=== PATIENT | female | born 1935 | race Caucasian/White ===

== ENCOUNTER 2016-03-02 23:30 | Emergency (ER) | payer OTHER, MEDICARE ==
[~2016-03-02] VITALS: Ht 157.5 cm; Wt 77.0 kg
[~2016-03-02 23:30] MED LIST: AMLO-114 PO; BROM0.07 OPR; CALCTAB7 PO; CHOL20005 PO; HYDR50TA3 PO; LEVO125T5 PO; LOSA100T65 PO; METO100T14 PO; MULT-506 PO; PANT1TAB3 PO; PRAV20TA PO; PRED1SUS3 OPR
[2016-03-02 23:51] VITALS: TEMP 36.7; Ht 157.5 cm; Wt 77.0 kg
[2016-03-03] MEDS ORDERED: LEVO112T4 PO (00:37)
[2016-03-03] MEDS ORDERED: FAMO20TA11 PO (00:38)
[2016-03-03 00:55] LABS: BASO % 0.2 %; BASO ABS # 0.02 K/uL (0-0.2); COMPLETE YES; EOS % 1.3 %; HEMATOCRIT 39.5 % (37-47); IG% 0.4 %; LYMPH % 19.1 %; LYMPH ABS # 1.61 K/uL (1.2-3.4); MEAN CORPUSCULAR HEMOGLOBIN 30.2 pg (25-34); MEAN CORPUSCULAR HGB CONC 34.7 g/dl (32-36); MEAN PLATELET VOLUME 10.3 fL (7.4-10.4); MONO % 9.1 %; NEUT % 69.9 %; PLATELET COUNT 199 K/uL (130-400); RED BLOOD COUNT 4.54 M/uL (4.2-5.4); WHITE BLOOD COUNT 8.45 K/uL (4.8-10.8)
[2016-03-03 01:00] LABS: URINE APPEARANCE CLEAR (CLEAR); URINE BILIRUBIN NEG (NEG); URINE COLOR YELLOW; URINE NITRITE NEG (NEG); URINE PH 6.5 (4.5-7.5); URINE SPECIFIC GRAVITY 1.007 (1.000-1.030); UROBILINOGEN NEG (NEG); ZZUR CULT IF INDIC CLEAN CATCH NO
[2016-03-03 01:03] LABS: MANUAL MICROSCOPIC REQUIRED? NO; REVIEW REQ? NO
[2016-03-03 01:35] LABS: BLOOD UREA NITROGEN 17 mg/dl (7-18); BUN/CREATININE RATIO 18.4 (10-20); CALCIUM 8.2 mg/dl (8.5-10.1); CARBON DIOXIDE 26 mmol/L (21-32); CHLORIDE 104 mmol/L (98-107); CREATININE 0.91 mg/dl (0.60-1.20); GLUCOSE 142 mg/dl (70-99); SODIUM 144 mmol/L (136-145)
--- NOTE | 2016-03-03 02:01 | EMERGENCY ROOM VISIT NOTE ---
History Report prepared by Ashwini: Abelino Dodge Under the Supervision of: Dr. Lon Smith M.D. First contact with patient: 23:58 Chief Complaint: NEURO SYMPTOMS Stated Complaint: NUMBNESS, TINGLING LT SIDE History of Present Illness The patient is a 80 year old female who presents to the Emergency Room with complaints of worsening generalized numbness for the past three days. The patient describes the numbness as a pins and needles sensation. The numbness is felt in her face and extremities, and is not localized to one side of her body. The patient denies any weakness, fevers, vision changes, syncope, nausea, vomiting, burning with urination or urinary frequency, or swelling of the extremities. She has intermittent chest tightness, which she says is normal for her. She has also had sinus congestion lately. She experienced chronic abdominal pain and diarrhea secondary to diverticulosis, which have been at baseline. The patient has not had any recent weight changes. The patient denies any recent falls or trauma. She had not had any tick bites. She had not been on any recent long trips. The patient takes medicine for her thyroid. Her thyroid levels have not been checked since December 28. She is on medication for hypertension and hyperlipidemia. She does not have diabetes. The patient does not smoke. She is scheduled to have a stress test next week. Source of History: patient Onset: three days Position: other (generalized) Quality: numbness Timing: worsening Associated Symptoms: + chest pain, No abdominal pain, No diarrhea, No fevers , No nausea, No urinary symptoms, No vomiting, No weakness Review of Systems See HPI for pertinent positives & negatives. A total of 10 systems reviewed and were otherwise negative. Past Medical & Surgical Medical Problems: (1) HTN (hypertension) Surgical Problems: (1) S/P cholecystectomy (2) S/P tonsillectomy and adenoidectomy Family History Diabetes mellitus FH: cancer FH: gallbladder disease Kidney disease Kidney stones Social History Smoking Status: Never Smoker Alcohol Use: none Drug Use: none Housing Status: lives alone Occupation Status: retired Current/Historical Medications Scheduled Amlodipine (Norvasc), 10 MG PO QPM Famotidine (Pepcid), 20 MG PO DAILY Hydrochlorothiazide (Hctz), 50 MG PO QAM Levothyroxine Sodium (Levothyroxine Sodium), 112 MCG PO DAILY Losartan Potassium (Cozaar), 100 MG PO QAM Metoprolol Tartrate (Lopressor) (Lopressor), 100 MG PO BID Pravastatin (Pravachol ), 20 MG PO HS Allergies Coded Allergies: Codeine (Verified Allergy, Intermediate, GI SYMPTOMS Nausea Emesis, 03/03/16) Fentanyl (Unverified Allergy, Unknown, vomiting, 03/03/16) Physical Exam Vital Signs Date Time Temp Pulse Resp B/P Pulse Ox O2 Delivery O2 Flow Rate FiO2 03/03/16 02:12 62 18 148/64 97 03/03/16 01:56 68 18 141/75 95 Room Air 03/03/16 00:40 67 03/02/16 23:51 36.7 69 18 140/68 94 Room Air Physical Exam GENERAL: Patient is well appearing and in no acute distress. HEENT: No acute trauma, normocephalic atraumatic, mucous membranes moist, no nasal congestion, no scleral icterus. NECK: No stridor, no adenopathy, no meningismus, trachea is midline. LUNGS: No dyspnea. Clear to auscultation and equal bilaterally. No wheeze, no rhonchi. HEART: Regular rate and rhythm. No murmurs, rubs, gallops appreciated. ABDOMEN: Soft, nontender, bowel sounds positive, no masses appreciated, no peritonitis. BACK: No midline tenderness, no CVA tenderness EXTREMITIES: Normal motion all extremities, no cyanosis, no edema. NEUROLOGIC: Alert and oriented, no acute motor or sensory deficits, no focal weakness, cranial nerves grossly intact. SKIN: No rash, no jaundice, no diaphoresis.v Medical Decision & Procedures ER Provider Diagnostic Interpretation: X ray results are stated below per my interpretation: Chest: 1 view: No infiltrate, no effusion, normal cardiac border. CT results and stated below per my review and radiologist interpretation: CT Head: No intracranial hemorrhage or mass effect. Radiologist: Delbert Sin MD. Laboratory Results 03/03/16 00:42 Red Blood Count 4.54, Mean Corpuscular Volume 87.0, Mean Corpuscular Hemoglobin 30.2, Mean Corpuscular Hemoglobin Concent 34.7, Mean Platelet Volume 10.3, Neutrophils (%) (Auto) 69.9, Lymphocytes (%) (Auto) 19.1, Monocytes (%) (Auto) 9.1, Eosinophils (%) (Auto) 1.3, Basophils (%) (Auto) 0.2, Neutrophils # (Auto) 5.91, Lymphocytes # (Auto) 1.61, Monocytes # (Auto) 0.77, Eosinophils # (Auto) 0.11, Basophils # (Auto) 0.02 03/03/16 00:42 Test 03/03/16 00:42 03/03/16 00:45 White Blood Count 8.45 K/uL (4.8-10.8) Red Blood Count 4.54 M/uL (4.2-5.4) Hemoglobin 13.7 g/dL (12.0-16.0) Hematocrit 39.5 % (37-47) Mean Corpuscular Volume 87.0 fL (80-100) Mean Corpuscular Hemoglobin 30.2 pg (25-34) Mean Corpuscular Hemoglobin Concent 34.7 g/dl (32-36) Platelet Count 199 K/uL (130-400) Mean Platelet Volume 10.3 fL (7.4-10.4) Neutrophils (%) (Auto) 69.9 % Lymphocytes (%) (Auto) 19.1 % Monocytes (%) (Auto) 9.1 % Eosinophils (%) (Auto) 1.3 % Basophils (%) (Auto) 0.2 % Neutrophils # (Auto) 5.91 K/uL (1.4-6.5) Lymphocytes # (Auto) 1.61 K/uL (1.2-3.4) Monocytes # (Auto) 0.77 K/uL (0.11-0.59) Eosinophils # (Auto) 0.11 K/uL (0-0.5) Basophils # (Auto) 0.02 K/uL (0-0.2) RDW Standard Deviation 43.6 fL (36.4-46.3) RDW Coefficient of Variation 13.7 % (11.5-14.5) Immature Granulocyte % (Auto) 0.4 % Immature Granulocyte # (Auto) 0.03 K/uL (0.00-0.02) Anion Gap 14.0 mmol/L (3-11) Est Creatinine Clear Calc Drug Dose 48.2 ml/min Estimated GFR () 69.5 Estimated GFR (Non- 60.0 BUN/Creatinine Ratio 18.4 (10-20) Calcium Level 8.2 mg/dl (8.5-10.1) Magnesium Level 2.0 mg/dl (1.8-2.4) Troponin I < 0.015 ng/ml (0-0.045) Thyroid Stimulating Hormone (TSH) 1.270 uIu/ml (0.300-4.500) Free Thyroxine 1.25 ng/dl (0.80-1.60) Chemistry Specimen Hemolysis Urine Color YELLOW Urine Appearance CLEAR (CLEAR) Urine pH 6.5 (4.5-7.5) Urine Specific Tyler 1.007 (1.000-1.030) Urine Protein NEG (NEG) Urine Glucose (UA) NEG (NEG) Urine Ketones NEG (NEG) Urine Occult Blood NEG (NEG) Urine Nitrite NEG (NEG) Urine Bilirubin NEG (NEG) Urine Urobilinogen NEG (NEG) Urine Leukocyte Esterase NEG (NEG) Urine WBC (Auto) 0 /hpf (0-5) Urine RBC (Auto) 0-4 /hpf (0-4) Urine Hyaline Casts (Auto) 0 /lpf (0-5) Urine Epithelial Cells (Auto) 5-10 /lpf (0-5) Urine Bacteria (Auto) NEG (NEG) Laboratory results as reviewed by me. ECG Indication: other (numbness) Rate (beats per minute): 62 Rhythm: normal sinus Findings: RBBB, no acute ischemic change, no ectopy ED Course 0000: The patient was evaluated in room C7. A complete history and physical exam was performed. 0200: Reevaluated the patient. Discussed results and discharge instructions: She verbalized understanding and agreement. The patient is ready for discharge. Medical Decision Differential: Sepsis, Infectious (UTI/Pneumonia/Meningitis/etc), Metabolic/ Electrolyte Abnormality, Cardiac, Hepatic, Endocrine, Toxicologic, Neurologic, amongst other pathologies entertained. 80 yr old female arrives with complaint of several days of periodic tingling in fingers/toes and around mouth. Admits it's been a stressful last week with holidays and family per patient and her grand-daughter. Given not previously an issue though went ahead and CT head normal, labs unremarkable and EKG with rbbb without ischemia. Already has stress test planned. No distress and happy. States no further symptoms. Without neuro deficits and with such specific symptoms I feel MRI unnecessary. No evidence infectious etiology. Impression Primary Impression: Paresthesia Scribe Attestation The scribe's documentation has been prepared under my direction and personally reviewed by me in its entirety. I confirm that the note above accurately reflects all work, treatment, procedures, and medical decision making performed by me. Departure Information Dispostion Home / Self-Care Referrals Nahid Nicholas M.D. (PCP) Forms HOME CARE DOCUMENTATION FORM, IMPORTANT VISIT INFORMATION Patient Instructions A Signature Page, Anxiety Body Response, My [facility]
[2016-03-03 02:12] VITALS: BP 148/64; PULSE 62; O2SAT 97
--- NOTE | 2016-03-03 06:29 | DIAGNOSTIC IMAGING REPORT ---
CT HEAD WITHOUT CONTRAST (CT) CLINICAL HISTORY: Generalized Weakness COMPARISON STUDY: 02/25/2013 TECHNIQUE: Axial CT of the brain is performed from the vertex to the skull base. IV contrast was not administered for this examination. CT DOSE: 537.48 mGy.cm FINDINGS: No intra or extra-axial mass lesions are visualized. There is no CT evidence of acute cortical infarction. There is no evidence of midline shift. There is no acute hemorrhage. No calvarial fractures are visualized. There are patchy white matter hypodensities likely on a small vessel basis. There is no evidence of pathologic ventricular dilatation. There is no evidence of acute sinusitis IMPRESSION: No acute intracranial findings Electronically signed by: Bryn Hardy M.D. 03/03/2016 6:28 AM
--- NOTE | 2016-03-03 06:39 | DIAGNOSTIC IMAGING REPORT ---
CHEST ONE VIEW PORTABLE CLINICAL HISTORY: Weakness. Chest pain. Shortness of breath. COMPARISON STUDY: Chest radiograph September 26, 2014 to FINDINGS: Elevation of the right hemidiaphragm is unchanged. There is no pneumothorax or pleural effusion. Mild left basilar opacity suggests atelectasis or scarring. There is no consolidation. Cardiac size is normal. Mediastinal contours are normal. The appearance of the chest is unchanged. IMPRESSION: No acute cardiopulmonary findings. Electronically signed by: Alan Bravo M.D. 03/03/2016 6:37 AM
== END 2016-03-03 02:13 | disposition home or self-care (01) ==
LOC: C.EDB 23:31 → C.EDC 03-03 02:13
DX: R20.2 Paresthesia of skin (principal); I10 Essential (primary) hypertension; E78.5 Hyperlipidemia, unspecified; Z83.3 Family history of diabetes mellitus; Z80.9 Family history of malignant neoplasm, unspecified; Z83.79 Family history of other diseases of the digestive system; Z84.1 Family history of disorders of kidney and ureter; Z79.899 Other long term (current) drug therapy

== ENCOUNTER 2019-05-26 15:09 | Inpatient (IN) ==
[2019-05-26] MEDS ORDERED: FAMOTIDINE 40 MG TABLET PO ONE (15:18)
[2019-05-26] MEDS ORDERED: GI COCKTAIL ED USE PO ONE (15:18)
[2019-05-26] MEDS ORDERED: SUCRALFATE 1 GM TAB PO STA (15:18)
--- NOTE | 2019-05-26 15:23 | Emergency Department Note ---
History of Present Illness General Chief complaint: Chest Pain Time Seen by Provider: 05/26/19 15:13 Source: patient, EMS, RN notes reviewed and old records reviewed Mode of arrival: EMS Limitations: no limitations History of Present Illness Provider complaint: chest pain Onset (ago): week(s) 3 Location: chest Radiation: non-radiation Severity: mild Current Pain Intensity: 3 Quality: + aching Relieved By: + medication (albuterol) Exacerbated By: + none Associated symptoms: + denies other symptoms Treatments prior to arrival: other (albuterol) This is an 83-year-old female who presents to the emergency department complaining of chest pain. The patient reports she has had chest pain for the past several weeks and was evaluated at [facility] for the chest pain. She had a stress test while admitted to [place] which she passed. Upon EMSs arrival to the patient's house today she was found to be satting 90%. She was given an albuterol breathing treatment on the way in which relieved the patient's chest pain. Patient was told it was her hiatal hernia. She was placed on pantoprazole for this. She is here today for second opinion. Home Medications Home Medications Medication Instructions Recorded Confirmed Type Allergy Pill 1 tab PO DAILY 05/26/19 05/26/19 History amlodipine [Norvasc] 5 mg PO DAILY 05/26/19 05/26/19 History ascorbic acid-vitamin E-biotin 1 tab PO DAILY 05/26/19 05/26/19 History [Hair, Skin, Nails with Biotin] calcitriol [Rocaltrol] 0.25 mcg PO Q OTHER DAY 05/26/19 05/26/19 History cholecalciferol (vitamin D3) 50 mcg PO DAILY 05/26/19 05/26/19 History [Vitamin D3] famotidine [Pepcid] 40 mg PO BID 05/26/19 05/26/19 History levothyroxine 100 mcg PO DAILY 05/26/19 05/26/19 History losartan [Cozaar] 100 mg PO DAILY 05/26/19 05/26/19 History metoprolol tartrate [Lopressor] 100 mg PO DAILY 05/26/19 05/26/19 History pantoprazole [Protonix] 40 mg PO DAILY 05/26/19 05/26/19 History Allergies Allergy/AdvReac Type Severity Reaction Status Date / Time codeine Allergy Intermediate GI Verified 05/26/19 15:47 SYMPTOMS Nausea Emesis fentanyl Allergy Unknown vomiting Unverified 05/26/19 15:47 Past Med/Surg History Medical History (Updated 05/27/19 @ 11:48 by Marino Cespedes MD) Colostomy present Diverticulitis of colon with perforation Surgical History (Updated 05/26/19 @ 17:29 by Rosario Amezcua MD) History of cataract surgery Hx of cholecystectomy Social History Preferred Language: Yi Communication Ability: Effective Loop Puller Required: No Beliefs That Will Affect Care: None Current Living Situation: Alone Feels Safe at Home: Yes Safety Concerns: Feels Safe At This Time Smoking Status: Never smoker Hx Alcohol Use: No Hx Substance Use: No Review of Systems A total of 10 systems reviewed and were otherwise negative Physical Exam Vital Signs Vital Signs - 24 hr 05/26/19 15:17 05/26/19 15:23 05/26/19 15:30 Temperature Temperature Source Pulse Rate 79 80 Pulse Rate from SpO2 Sensor 79 79 Respiratory Rate 18 21 Respiratory Effort / Characteristics Respiratory Depth Blood Pressure 158/69 H Blood Pressure Mean 94 Pulse Oximetry 96 95 95 Oxygen Delivery Method Room Air Sepsis Recent Fever Within 48 Hours Sepsis New/Unexplained Change in Mental Status Sepsis Action Taken by Nursing 05/26/19 15:31 05/26/19 15:34 05/26/19 16:36 Temperature 36.9 C Temperature Source Oral Pulse Rate 79 81 73 Pulse Rate from SpO2 Sensor 79 73 Respiratory Rate 20 18 22 Respiratory Effort / Characteristics Non-Labored Respiratory Depth Normal Blood Pressure 101/80 101/80 157/81 H Blood Pressure Mean 83 87 118 Pulse Oximetry 94 96 95 Oxygen Delivery Method Room Air Sepsis Recent Fever Within 48 Hours No Sepsis New/Unexplained Change in Mental Status No Sepsis Action Taken by Nursing No Action Required 05/26/19 17:00 05/26/19 17:38 05/26/19 17:40 Temperature Temperature Source Pulse Rate 75 70 70 Pulse Rate from SpO2 Sensor 70 70 Respiratory Rate 23 21 21 Respiratory Effort / Characteristics Respiratory Depth Blood Pressure 133/56 L Blood Pressure Mean 79 Pulse Oximetry 96 95 Oxygen Delivery Method Sepsis Recent Fever Within 48 Hours Sepsis New/Unexplained Change in Mental Status Sepsis Action Taken by Nursing 05/26/19 17:41 05/26/19 18:00 05/26/19 18:01 Temperature Temperature Source Pulse Rate 70 71 73 Pulse Rate from SpO2 Sensor 70 72 72 Respiratory Rate 21 21 18 Respiratory Effort / Characteristics Respiratory Depth Blood Pressure 129/59 L Blood Pressure Mean 69 Pulse Oximetry 94 95 95 Oxygen Delivery Method Sepsis Recent Fever Within 48 Hours Sepsis New/Unexplained Change in Mental Status Sepsis Action Taken by Nursing 05/26/19 18:31 05/26/19 18:38 Temperature Temperature Source Pulse Rate 70 Pulse Rate from SpO2 Sensor Respiratory Rate 16 Respiratory Effort / Characteristics Respiratory Depth Blood Pressure 126/40 L Blood Pressure Mean 69 Pulse Oximetry Oxygen Delivery Method Sepsis Recent Fever Within 48 Hours Sepsis New/Unexplained Change in Mental Status Sepsis Action Taken by Nursing GENERAL: Patient is a healthy-appearing well-nourished female in no acute distress HEAD: Normocephalic atraumatic EYES: Ocular movements intact pupils equal and react to light OROPHARYNX mucous membranes are moist no exudates present no erythema or edema present NECK: Supple no nuchal rigidity CHEST: Good equal expansion LUNGS: Clear and equal to auscultation CARDIAC: Normal S1 and S2 ABDOMEN: Soft nontender no guarding BACK: No CVA tenderness EXTREMITIES: No pain upon palpation normal muscle strength in all groups no clubbing cyanosis or edema NEURO: Patient is following commands is answering questions appropriately. Alert and oriented x3 Cranial Nerves 2-12 grossly intact Course Administered Medications Potassium Chloride/Dextrose/Sod Cl (D5nss + 20meq Kcl) 20 meq in 1,000 mls @ 75 mls/hr IV .[id number] [facility] Stop: 06/25/19 19:46 Last Admin: 05/27/19 10:01 Dose: 75 mls/hr Documented by: [id number] Infusion: 05/27/19 09:47 Dose: 75 mls/hr Documented by: [id number] Infusion: 05/26/19 22:06 Dose: 75 mls/hr Documented by: [id number] Admin: 05/26/19 20:27 Dose: 75 mls/hr Documented by: [id number] Pantoprazole Sodium 40 mg/ (Syringe) 10 mls @ 5 mls/min IV DAILY@1100 [facility] Stop: 06/26/19 10:59 Last Admin: 05/27/19 11:15 Dose: 5 mls/min Documented by: [id number] Piperacillin Sod/Tazobactam (Sod 3.375 gm/ Dextrose) 115 mls @ 28.75 mls/hr IV Q8H [facility]; Protocol Stop: 06/05/19 21:59 Last Infusion: 05/27/19 10:33 Dose: 0 mls/hr Documented by: [id number] Admin: 05/27/19 06:29 Dose: 28.8 mls/hr Documented by: [id number] Infusion: 05/27/19 01:39 Dose: 0 mls/hr Documented by: [id number] Admin: 05/26/19 21:46 Dose: 28.8 mls/hr Documented by: [id number] Famotidine 20 mg/ Syringe 5 mls @ 2.5 mls/min IV BID [facility] Stop: 06/26/19 08:59 Last Admin: 05/27/19 08:11 Dose: 2.5 mls/min Documented by: [id number] Levothyroxine Sodium 50 mcg/ (Syringe) 2.5 mls @ 2 mls/min IV DAILY@0900 [facility] Stop: 06/26/19 08:59 Last Admin: 05/27/19 08:30 Dose: 2 mls/min Documented by: [id number] Discontinued Medications Acetaminophen (Tylenol) 1,000 mg PO NOW STA Stop: 05/26/19 15:47 Last Admin: 05/26/19 16:13 Dose: 1,000 mg Documented by: [id number] Al Hydrox/Mg Hydrox/Simethicone () 1 dose PO ONE ONE Stop: 05/26/19 15:19 Last Admin: 05/26/19 15:45 Dose: 1 dose Documented by: [id number] Albuterol (Ventolin Hfa) 6 puffs INH NOW ONE Stop: 05/26/19 15:26 Last Admin: 05/26/19 16:13 Dose: 6 puffs Documented by: [id number] Famotidine (Pepcid) 40 mg PO NOW ONE Stop: 05/26/19 15:19 Last Admin: 05/26/19 15:45 Dose: 40 mg Documented by: [id number] Sodium Chloride (Nss 1000ml) 1,000 mls @ 999 mls/hr IV .Q1H1M ONE Stop: 05/26/19 17:16 Last Infusion: 05/26/19 17:57 Dose: 0 mls/hr Documented by: [id number] Admin: 05/26/19 16:37 Dose: 999 mls/hr Documented by: [id number] Piperacillin Sod/Tazobactam Sod (Zosyn) 4.5 gm in 120 mls @ 240 mls/hr IV NOW ONE Stop: 05/26/19 17:19 Last Infusion: 05/26/19 18:18 Dose: 0 mls/hr Documented by: [id number] Admin: 05/26/19 17:38 Dose: 240 mls/hr Documented by: [id number] Daptomycin 275 mg/ Syringe 5.5 mls @ 2.75 mls/min IV NOW ONE; Protocol Stop: 05/26/19 16:51 Last Admin: 05/26/19 17:54 Dose: 2.75 mls/min Documented by: [id number] Famotidine 20 mg/ Syringe 5 mls @ 2.5 mls/min IV BID [facility] Stop: 06/25/19 20:59 Last Admin: 05/26/19 21:35 Dose: Not Given Documented by: [id number] Ioversol (Optiray 320 125ml) 120 ml IV ONCE PRN PRN Reason: Interaction Checking Stop: 05/30/19 16:00 Last Admin: 05/26/19 16:01 Dose: 120 ml Documented by: [id number] Ioversol (Optiray 320 100ml) 94 ml IV ONCE PRN PRN Reason: Interaction Checking Stop: 05/30/19 16:29 Last Admin: 05/26/19 16:31 Dose: 94 ml Documented by: [id number] Potassium Chloride (Klor-Con M20) 40 meq PO NOW STA Stop: 05/26/19 15:46 Last Admin: 05/26/19 16:13 Dose: 40 meq Documented by: [id number] Sucralfate (Carafate Tab) 1 gm PO NOW STA Stop: 05/26/19 15:19 Last Admin: 05/26/19 15:45 Dose: 1 gm Documented by: [id number] Medical Decision Making Differential Diagnosis Cardiac ischemia, aortic dissection, pulmonary embolism, pneumothorax, pneumonia, pericarditis, myocarditis, esophageal rupture, GERD, cholecystitis, pancreatitis, musculoskeletal, as well as other pathologies. Medical Records Attestation: I reviewed the patient's medical records. Home Medications Current Medication List: was personally reviewed by me Laboratory Data Attestation: I reviewed the patient's lab results. Result diagrams: 05/27/19 03:50 05/27/19 03:50 Lab Results 05/26/19 05/26/19 05/26/19 Range/Units 14:25 14:25 14:25 WBC 10.34 (4.8-10.8) K/uL RBC 4.24 (4.2-5.4) M/uL Hgb 12.5 (12.0-16.0) g/dL POC Hgb (12.0-16.0) g/dl Hct 37.4 (37-47) % POC Hct (37-47) % MCV 88.2 (80-100) fL MCH 29.5 (25-34) pg MCHC 33.4 (32-36) g/dL RDW Std Deviation 43.1 (36.4-46.3) fL RDW Coeff of Grecia 13.4 (11.5-14.5) % Plt Count 300 (130-400) K/uL MPV 10.5 H (7.4-10.4) fL Immature Gran % (Auto) 0.2 % Neut % (Auto) 81.9 % Lymph % (Auto) 8.8 % Bucks % (Auto) 8.2 % Eos % (Auto) 0.6 % Baso % (Auto) 0.3 % Immature Gran # (Auto) 0.02 (0.00-0.02) K/uL Neut # (Auto) 8.47 H (1.4-6.5) K/uL Lymph # (Auto) 0.91 L (1.2-3.4) K/uL Bucks # (Auto) 0.85 H (0.11-0.59) K/uL Eos # (Auto) 0.06 (0-0.5) K/uL Baso # (Auto) 0.03 (0-0.2) K/uL PT 10.8 (9.0-12.0) Seconds INR 1.0 (0.9-1.1) APTT 29.9 (21.0-31.0) Seconds PTT Ratio 1.1 D-Dimer 710 H* (0-500) ug/L FEU POC Sodium (135-144) mmol/L Sodium 137 (136-145) mmol/L POC Potassium (3.3-5.0) mmol/L Potassium 3.6 (3.5-5.1) mmol/L POC Chloride (101-112) mmol/L Chloride 107 (98-107) mmol/L Carbon Dioxide 26 (21-32) mmol/L POC Total CO2 (24-31) mEq/l Anion Gap 4.0 (3-11) POC Anion Gap (16-25) mmol/L POC BUN (7-18) mg/dl BUN 14 (7-18) mg/dl Creatinine 0.79 (0.6-1.2) mg/dl POC Creatinine (0.6-1.3) mg/dl Est Cr Clr Drug Dosing 50.2 ml/min Est GFR ( Amer) 80.8 Est GFR (Non-Af Amer) 69.7 BUN/Creatinine Ratio 17.4 (10-20) Glucose 135 H (70-99) mg/dl POC Glucose (other) (70-99) mg/dl Lactate (0.4-2.0) mmol/L Calcium 8.2 L (8.5-10.1) mg/dl POC Ioniz Calcium Kendell (1.12-1.32) mmol/l Total Bilirubin 0.8 (0.2-1) mg/dl AST 18 (15-37) U/L ALT 26 (12-78) U/L Alkaline Phosphatase 88 (45-117) U/L Total Creatine Kinase 69 (26-192) U/L CK-MB (CK-2) 2.3 (0.5-3.6) ng/ml CK/CKMB % Calc 3.3 H (0-3.0) Troponin I < 0.015 (0-0.045) ng/ml Total Protein 6.9 (6.4-8.2) gm/dl Albumin 2.9 L (3.4-5.0) gm/dl Globulin 4.0 (2.5-4.0) gm/dl Albumin/Globulin Ratio 0.7 L (0.9-2) Lipase 84 (73-393) U/L 05/26/19 05/26/19 05/26/19 Range/Units 15:34 16:08 17:09 WBC (4.8-10.8) K/uL RBC (4.2-5.4) M/uL Hgb (12.0-16.0) g/dL POC Hgb 12.2 (12.0-16.0) g/dl Hct (37-47) % POC Hct 36 L (37-47) % MCV (80-100) fL MCH (25-34) pg MCHC (32-36) g/dL RDW Std Deviation (36.4-46.3) fL RDW Coeff of Grecia (11.5-14.5) % Plt Count (130-400) K/uL MPV (7.4-10.4) fL Immature Gran % (Auto) % Neut % (Auto) % Lymph % (Auto) % Bucks % (Auto) % Eos % (Auto) % Baso % (Auto) % Immature Gran # (Auto) (0.00-0.02) K/uL Neut # (Auto) (1.4-6.5) K/uL Lymph # (Auto) (1.2-3.4) K/uL Bucks # (Auto) (0.11-0.59) K/uL Eos # (Auto) (0-0.5) K/uL Baso # (Auto) (0-0.2) K/uL PT (9.0-12.0) Seconds INR (0.9-1.1) APTT (21.0-31.0) Seconds PTT Ratio D-Dimer (0-500) ug/L FEU POC Sodium 138 (135-144) mmol/L Sodium (136-145) mmol/L POC Potassium 4.2 (3.3-5.0) mmol/L Potassium (3.5-5.1) mmol/L POC Chloride 100 L (101-112) mmol/L Chloride (98-107) mmol/L Carbon Dioxide (21-32) mmol/L POC Total CO2 27 (24-31) mEq/l Anion Gap (3-11) POC Anion Gap 16.0 (16-25) mmol/L POC BUN 15 (7-18) mg/dl BUN (7-18) mg/dl Creatinine (0.6-1.2) mg/dl POC Creatinine 0.6 (0.6-1.3) mg/dl Est Cr Clr Drug Dosing ml/min Est GFR ( Amer) Est GFR (Non-Af Amer) BUN/Creatinine Ratio (10-20) Glucose (70-99) mg/dl POC Glucose (other) 123 H (70-99) mg/dl Lactate 1.0 (0.4-2.0) mmol/L Calcium (8.5-10.1) mg/dl POC Ioniz Calcium Kendell 1.13 (1.12-1.32) mmol/l Total Bilirubin (0.2-1) mg/dl AST (15-37) U/L ALT (12-78) U/L Alkaline Phosphatase (45-117) U/L Total Creatine Kinase (26-192) U/L CK-MB (CK-2) (0.5-3.6) ng/ml CK/CKMB % Calc (0-3.0) Troponin I < 0.015 (0-0.045) ng/ml Total Protein (6.4-8.2) gm/dl Albumin (3.4-5.0) gm/dl Globulin (2.5-4.0) gm/dl Albumin/Globulin Ratio (0.9-2) Lipase (73-393) U/L Imaging Data Radiologist's Impression: XR chest 1V portable CLINICAL HISTORY: 83 years-old Female presenting with Chest Pain. TECHNIQUE: Portable upright AP view of the chest was obtained. COMPARISON: 03/03/2016. FINDINGS: Atherosclerosis of the aortic arch. Cardiac silhouette borderline enlarged. Prominence of the right hilum. Elevation of the right hemidiaphragm, unchanged. Bandlike opacity at the paramediastinal left lung base. No large effusion or pneumothorax. Suspected osteopenia. Degenerative changes of the thoracic spine. Upper abdomen normal. IMPRESSION: 1. Prominence of the right hilum may be vascular or projectional. 2. Chronic elevation of the right hemidiaphragm. 3. Left basilar atelectasis. 4. Borderline cardiomegaly. ACT 112: Negative or not required by law. Electronically signed by: Onur Truong M.D. 05/26/2019 3:36 PM [facility], [place] [phone] CT Scan Report Patient: HECTOR MILIAN Date: 05/26/19 MR#: [id number]: [id number] Acct ID:[id number]: Date: 1935ty Zip: [place] [id number] Age: 83Location: ED Sex: F Room/Bed: Att Phy:Diagnosis: COUGH, SOB Morena Phy: Nahid Nicholas M.D.Service Date: 05/26/19 [facility] Phy:Interpreting Phy: Onur Truong MD Admit Phy: Ordering Phy: Marino Cespedes MD cc: ~ CT angio chest PE protocol CLINICAL HISTORY: 83 years-old Female presenting with atypical chest pain.. TECHNIQUE: Multidetector CT angiography of the chest was performed after administration of intravenous contrast. 3-D volumetric and/or maximum intensity projection (MIP) images were subsequently reconstructed for review. IV contrast: 120 mL of Optiray 320. One or more dose lowering techniques were used consistent with the principles of ALARA (as low as reasonably achievable), including automatic exposure control, mA or kV adjustment to individual patient size, and/or use of iterative reconstruction. COMPARISON: Chest x-ray from earlier today. CT DOSE (mGy.cm): The estimated cumulative dose is 286.34 mGy.cm. FINDINGS: Surveillance Observer topogram: Unremarkable. Pulmonary vasculature: The study is adequate for assessment of the pulmonary vascular tree. No filling defect within the pulmonary arteries to suggest embolus. Main pulmonary artery is not enlarged. No flattening of the interventricular septum. No intracardiac filling defect. No reflux of contrast into the hepatic veins. Remaining chest: Soft tissues: Thyroid atrophic or absent. A few subcentimeter mediastinal lymph nodes are noted in the prevascular and precarinal regions measuring up to 10 mm in short axis, nonspecific. No hilar lymphadenopathy. Atherosclerosis of the aorta. Normal heart size. No pericardial or pleural effusion. Pneumoperitoneum evident. Lungs and airways: No pneumothorax. Central airways patent. Pulmonary arteries are not significantly enlarged relative to adjacent bronchi. No interlobular septal thickening. Minimal dependent changes likely atelectasis. Musculoskeletal: Degenerative changes of the spine. IMPRESSION: 1. Pneumoperitoneum. This is highly concerning for perforated hollow viscus. Please ensure the absence of recent surgery. Dedicated abdominal imaging recommended. 2. No evidence of pulmonary embolus. No acute intrathoracic pathology. 3. Nonspecific prominent mediastinal lymph nodes. The report will be called/faxed according to standard departmental protocol for a critical finding. ACT 112: Negative or not required by law. Electronically signed by: Onur Truong M.D. 05/26/2019 4:14 PM Dictated: 05/26/19 1607 Transcribed: 05/26/19 1607 [place], [place] [phone] CT Scan Report Patient: HECTOR MILIAN Date: 05/26/19 MR#: [id number]: [id number] Acct ID:[id number]: Date: 1935[facility] Zip: [place] [address] Age: 83Location: ED Sex: F Room/Bed: Att Phy:Diagnosis: COUGH, SOB Morena Phy: Nahid Nicholas M.D.Service Date: 05/26/19 Fam Phy:Interpreting Phy: Onur Truong MD Admit Phy: Ordering Phy: Marino Cespedes MD cc: ~ CT abd pelvis IV con only CLINICAL HISTORY: 83 years-old Female presenting with Pt c/o chest pain, pneumoperitoneum on CT chest, further evaluation. TECHNIQUE: Multidetector CT of the abdomen and pelvis was performed after the administration of intravenous contrast. IV contrast: 94 mL of Optiray 320. One or more dose lowering techniques were used consistent with the principles of ALARA (as low as reasonably achievable), including automatic exposure control, mA or kV adjustment to individual patient size, and/or use of iterative reconstruction. COMPARISON: 09/26/2014. CT DOSE (mGy.cm): The estimated cumulative dose is 551.12 mGy.cm. FINDINGS: Surveillance Observer topogram: Unremarkable. Lung bases: Normal heart size. Coronary artery calcification. No pericardial or pleural effusion. Minimal dependent changes likely atelectasis. Liver: Normal morphology. Multilobular hypodense lesion in the right hepatic lobe likely hepatic cyst or hemangioma. Patent hepatic vasculature. Biliary: Mild biliary ductal prominence likely a reservoir effect in the post cholecystectomy state. Gallbladder surgically absent. Pancreas: Normal. Spleen: Normal. Adrenal glands: Normal. Kidneys and ureters: Normal. No hydronephrosis. Bladder: Normal. Pelvic organs: Uterus and ovaries normal. Bowel: Descending colostomy in the left lower quadrant. Status post sigmoidectomy. Contreras's pouch at the upper rectum. A few diverticula at the upper rectum. A few diverticula are also noted in the distal descending colon and scattered throughout the remainder of the colon. No colonic wall thickening or pericolonic inflammatory change. The appendix is normal. No bowel obstruction. Fluid noted throughout the small bowel without evidence of wall thickening or perienteric inflammatory change. Duodenal diverticula at the level of the descending portion. Multiple prominent small bowel diverticula are suspected predominantly in the proximal small bowel. No focal inflammatory change is appreciated. The stomach is grossly unremarkable. Peritoneal cavity: Scattered free intraperitoneal gas evident predominantly in the mid to upper abdomen. This also extends extends into the parastomal hernia associated with a colostomy. No pneumatosis is evident. No free intraperitoneal fluid. Lymph nodes: No enlarged lymph nodes in the abdomen or pelvis. Vasculature: Atherosclerosis of the normal caliber abdominal aorta. IVC patent. Abdominal wall: Parastomal fat-containing hernia in the left lower quadrant associated with the colostomy. Postsurgical changes of the ventral abdominal wall. Small periumbilical hernia. Musculoskeletal: Degenerative changes of the spine. IMPRESSION: 1. Extensive scattered foci of pneumoperitoneum predominantly in the mid to upper abdomen. The lack of oral contrast limits identification of a focal site of bowel discontinuity, however, this finding is consistent with perforated hollow viscus. Extensive small bowel diverticulosis as well as less extensive colonic diverticulosis. This may be a potential etiology. No focal inflammatory change to suggest the site of perforation. Surgical consultation is necessary 2. Fluid throughout the small bowel may suggest a mild ileus or enteritis. This may be secondarily reactive to the presence of the perforation. 3. Status post sigmoidectomy with a left lower quadrant colostomy. 4. Status post cholecystectomy. The report will be called/faxed according to standard departmental protocol. ACT 112: Negative or not required by law. Electronically signed by: Onur Truong M.D. 05/26/2019 4:45 PM Dictated: 05/26/19 1635 Transcribed: 05/26/19 1638 ECG Data Attestation: I personally reviewed and interpreted this ECG as follows: Indication: chest pain Rhythm: normal sinus Findings: + 1st degree AV block and + RBBB; no ST depression and no ST elevation Comparison ECG Date: from (03/03/2016) Change: no significant change Additional Comments: Sinus rhythm with first degree AV block right bundle branch block no ST elevation or depression QTC is 460 rate of 79 unchanged from previous Blood Pressure Blood Pressure Findings: Low blood pressure MDM Narrative This is an 83-year-old female who presents emergency department complaining of chest pain. The patient recently had a stress test performed at [facility]. Serial EKGs as well as serial troponins do not show any acute changes however the patient does have a white blood cell count of 10.8. She was sent for CAT scan of the chest which was concerning for perforated viscus. Based on this the patient was then sent for CAT scan of the abdomen and pelvis. The patient was given breathing treatments here in the emergency department via albuterol inhaler. She was also given 1000 g of Tylenol and started on Zosyn as well as daptomycin. She was given a normal saline bolus and her potassium was repleted. Due to the findings on the CAT scan I did discuss the case with the surgeon. She felt that the patient could be admitted to the medicine service. Impression & Plan Perforated abdominal viscus, Chest pain Critical Care Time I have personally spent greater than 30 minutes of critical care time in the direct management of this patient. This includes bedside care, interpretation of diagnostic studies, and testing, discussion with consultants, patient, and family members, and other required patient management activities. This 30 minutes is in excess of all separately billable procedures. Discharge Plan Visit Data *Final* Discharge Date/Time: 05/26/19 19:20 Chief Complaint: Chest Pain ED Provider: Marino Cespedes Discharge Problem: Perforated abdominal viscus, Chest pain Patient Disposition: Admitted As Inpatient Discharge Instructions Interventions: ED Discharge Assessment Last Done: 05/26/19 19:20 Discharge Problem: Chest pain Qualifiers: Chest pain type: unspecified Qualified Code(s): R07.9 - Chest pain, unspecified
[2019-05-26] MEDS ORDERED: ALBUTEROL HFA 8 GM INHALER INH ONE (15:25)
[2019-05-26 15:26] LABS: Basophils # (auto) 0.03 K/uL (0-0.2); Basophils % (auto) 0.3 %; Eosinophils # (auto) 0.06 K/uL (0-0.5); Eosinophils % (auto) 0.6 %; Hematocrit (blood only) 37.4 % (37-47); Hemoglobin 12.5 g/dL (12.0-16.0); Immature Granulocytes # (auto) 0.02 K/uL (0.00-0.02); Immature Granulocytes % (auto) 0.2 %; Lymphocytes # (auto) 0.91 K/uL (1.2-3.4); Lymphocytes % (auto) 8.8 %; Mean Corpuscular Hemoglobin 29.5 pg (25-34); Mean Corpuscular Hgb Conc 33.4 g/dL (32-36); Mean Corpuscular Volume 88.2 fL (80-100); Mean Platelet Volume 10.5 fL (7.4-10.4); Monocytes # (auto) 0.85 K/uL (0.11-0.59); Monocytes % (auto) 8.2 %; Neutrophils # (auto) 8.47 K/uL (1.4-6.5); Neutrophils % (auto) 81.9 %; Platelet Count 300 K/uL (130-400); RDW Coefficient of Variation 13.4 % (11.5-14.5); RDW Standard Deviation 43.1 fL (36.4-46.3); Red Blood Count 4.24 M/uL (4.2-5.4); White Blood Count 10.34 K/uL (4.8-10.8)
--- NOTE | 2019-05-26 15:37 | XRay Report ---
XR chest 1V portable CLINICAL HISTORY: 83 years-old Female presenting with Chest Pain. TECHNIQUE: Portable upright AP view of the chest was obtained. COMPARISON: 03/03/2016. FINDINGS: Atherosclerosis of the aortic arch. Cardiac silhouette borderline enlarged. Prominence of the right h ilum. Elevation of the right hemidiaphragm, unchanged. Bandlike opacity at the paramediastinal left l yaniv base. No large effusion or pneumothorax. Suspected osteopenia. Degenerative changes of the thorac ic spine. Upper abdomen normal. IMPRESSION: 1. Prominence of the right hilum may be vascular or projectional. 2. Chronic elevation of the right hemidiaphragm. 3. Left basilar atelectasis. 4. Borderline cardiomegaly. ACT 112: Negative or not required by law. Electronically signed by: Onur Truong M.D. 05/26/2019 3:36 PM
[2019-05-26 15:38] LABS: Partial Thromboplastin Ratio 1.1; Partial Thromboplastin Time 29.9 Seconds (21.0-31.0); Prothrombin Time 10.8 Seconds (9.0-12.0)
[2019-05-26 15:40] LABS: Alanine Aminotransferase 26 U/L (12-78); Albumin Level 2.9 gm/dl (3.4-5.0); Aspartate Aminotransferase 18 U/L (15-37); BUN Creatinine Ratio 17.4 (10-20); Blood Urea Nitrogen 14 mg/dl (7-18); Calcium 8.2 mg/dl (8.5-10.1); Carbon Dioxide 26 mmol/L (21-32); Chloride 107 mmol/L (98-107); Creatinine Clr Calc Pharmacy 50.2 ml/min; Est GFR (African American) 80.8; Est GFR (Non-African American) 69.7; Glucose 135 mg/dl (70-99); Lipase 84 U/L (73-393); Potassium 3.6 mmol/L (3.5-5.1); Sodium 137 mmol/L (136-145)
[2019-05-26 15:45] LABS: Albumin Globulin Ratio 0.7 (0.9-2); Alkaline Phosphatase 88 U/L (45-117); Bilirubin,Total 0.8 mg/dl (0.2-1); Creatine Kinase 69 U/L (26-192); Creatine Kinase MB 2.3 ng/ml (0.5-3.6); Total Protein 6.9 gm/dl (6.4-8.2); Troponin I < 0.015 ng/ml (0-0.045)
[2019-05-26] MEDS ORDERED: POTASSIUM CHLORIDE 20 MEQ TABCR PO STA (15:45)
[2019-05-26] MEDS ORDERED: ACETAMINOPHEN 500 MG TAB PO STA (15:46)
[2019-05-26 15:53] LABS: iSTAT Creatinine 0.6 mg/dl (0.6-1.3); iSTAT Hemoglobin 12.2 g/dl (12.0-16.0); iSTAT Ionized Calcium 1.13 mmol/l (1.12-1.32); iSTAT Potassium 4.2 mmol/L (3.3-5.0)
[2019-05-26 15:54] LABS: D Dimer 710 ug/L FEU (0-500)
[2019-05-26] MEDS ORDERED: OPTIRAY 320 125ml IV PRN (16:01)
[2019-05-26] MEDS ORDERED: SODIUM CHLORIDE 0.9% 1000ML 1,000 ML IV ONE (16:16)
--- NOTE | 2019-05-26 16:16 | CT Scan Report ---
CT angio chest PE protocol CLINICAL HISTORY: 83 years-old Female presenting with atypical chest pain.. TECHNIQUE: Multidetector CT angiography of the chest was performed after administration of intravenou s contrast. 3-D volumetric and/or maximum intensity projection (MIP) images were subsequently reconst ructed for review. IV contrast: 120 mL of Optiray 320. One or more dose lowering techniques were used consistent with the principles of ALARA (as low as reasonably achievable), including automatic expos ure control, mA or kV adjustment to individual patient size, and/or use of iterative reconstruction. COMPARISON: Chest x-ray from earlier today. CT DOSE (mGy.cm): The estimated cumulative dose is 286.34 mGy.cm. FINDINGS: Marine Chronometer Assembler topogram: Unremarkable. Pulmonary vasculature: The study is adequate for assessment of the pulmonary vascular tree. No filling defect within the pul monary arteries to suggest embolus. Main pulmonary artery is not enlarged. No flattening of the inter ventricular septum. No intracardiac filling defect. No reflux of contrast into the hepatic veins. Remaining chest: Soft tissues: Thyroid atrophic or absent. A few subcentimeter mediastinal lymph nodes are noted in th e prevascular and precarinal regions measuring up to 10 mm in short axis, nonspecific. No hilar lymph adenopathy. Atherosclerosis of the aorta. Normal heart size. No pericardial or pleural effusion. Pneumoperitoneum evident. Lungs and airways: No pneumothorax. Central airways patent. Pulmonary arteries are not significantly enlarged relative to adjacent bronchi. No interlobular septal thickening. Minimal dependent changes l ikely atelectasis. Musculoskeletal: Degenerative changes of the spine. IMPRESSION: 1. Pneumoperitoneum. This is highly concerning for perforated hollow viscus. Please ensure the absen ce of recent surgery. Dedicated abdominal imaging recommended. 2. No evidence of pulmonary embolus. No acute intrathoracic pathology. 3. Nonspecific prominent mediastinal lymph nodes. The report will be called/faxed according to standard departmental protocol for a critical finding. ACT 112: Negative or not required by law. Electronically signed by: Onur Truong M.D. 05/26/2019 4:14 PM
[2019-05-26] MEDS ORDERED: IOVERSOL 100ml IV PRN (16:30)
--- NOTE | 2019-05-26 16:46 | CT Scan Report ---
CT abd pelvis IV con only CLINICAL HISTORY: 83 years-old Female presenting with Pt c/o chest pain, pneumoperitoneum on CT chest , further evaluation. TECHNIQUE: Multidetector CT of the abdomen and pelvis was performed after the administration of intra venous contrast. IV contrast: 94 mL of Optiray 320. One or more dose lowering techniques were used co nsistent with the principles of ALARA (as low as reasonably achievable), including automatic exposure control, mA or kV adjustment to individual patient size, and/or use of iterative reconstruction. COMPARISON: 09/26/2014. CT DOSE (mGy.cm): The estimated cumulative dose is 551.12 mGy.cm. FINDINGS: Final Expense Agent topogram: Unremarkable. Lung bases: Normal heart size. Coronary artery calcification. No pericardial or pleural effusion. Min imal dependent changes likely atelectasis. Liver: Normal morphology. Multilobular hypodense lesion in the right hepatic lobe likely hepatic cyst or hemangioma. Patent hepatic vasculature. Biliary: Mild biliary ductal prominence likely a reservoir effect in the post cholecystectomy state. Gallbladder surgically absent. Pancreas: Normal. Spleen: Normal. Adrenal glands: Normal. Kidneys and ureters: Normal. No hydronephrosis. Bladder: Normal. Pelvic organs: Uterus and ovaries normal. Bowel: Descending colostomy in the left lower quadrant. Status post sigmoidectomy. Contreras's pouch at the upper rectum. A few diverticula at the upper rectum. A few diverticula are also noted in the dis brionna descending colon and scattered throughout the remainder of the colon. No colonic wall thickening or pericolonic inflammatory change. The appendix is normal. No bowel obstruction. Fluid noted through out the small bowel without evidence of wall thickening or perienteric inflammatory change. Duodenal diverticula at the level of the descending portion. Multiple prominent small bowel diverticula are lindsay spected predominantly in the proximal small bowel. No focal inflammatory change is appreciated. The s tomach is grossly unremarkable. Peritoneal cavity: Scattered free intraperitoneal gas evident predominantly in the mid to upper abdom en. This also extends extends into the parastomal hernia associated with a colostomy. No pneumatosis is evident. No free intraperitoneal fluid. Lymph nodes: No enlarged lymph nodes in the abdomen or pelvis. Vasculature: Atherosclerosis of the normal caliber abdominal aorta. IVC patent. Abdominal wall: Parastomal fat-containing hernia in the left lower quadrant associated with the colos wero. Postsurgical changes of the ventral abdominal wall. Small periumbilical hernia. Musculoskeletal: Degenerative changes of the spine. IMPRESSION: 1. Extensive scattered foci of pneumoperitoneum predominantly in the mid to upper abdomen. The lack of oral contrast limits identification of a focal site of bowel discontinuity, however, this finding is consistent with perforated hollow viscus. Extensive small bowel diverticulosis as well as less ext ensive colonic diverticulosis. This may be a potential etiology. No focal inflammatory change to sugg est the site of perforation. Surgical consultation is necessary 2. Fluid throughout the small bowel may suggest a mild ileus or enteritis. This may be secondarily r eactive to the presence of the perforation. 3. Status post sigmoidectomy with a left lower quadrant colostomy. 4. Status post cholecystectomy. The report will be called/faxed according to standard departmental protocol. ACT 112: Negative or not required by law. Electronically signed by: Onur Truong M.D. 05/26/2019 4:45 PM
[2019-05-26] MEDS ORDERED: PIPERACILLIN/TAZOBACTAM 4.5 GM/120 ML BAG IV ONE (16:50)
[2019-05-26] MEDS ORDERED: DAPTOmycin 275 MG in SYRINGE 0 ML IV ONE (16:50)
[2019-05-26] MEDS ORDERED: DAPTOMYCIN CONSULT ACTIVE PRN (16:50)
[2019-05-26] MEDS ORDERED: PIPERACILL/TAZOBAC CONSULT ACTIVE PRN ×2 (16:50→19:56)
--- NOTE | 2019-05-26 17:22 | Surgery Consultation ---
Date of Consultation May 26, 2019 Assessment & Plan (1) Perforation of intestine due to diverticulitis of gastrointestinal tract: 83 [address] woman with CT scan showing scattered foci of free air and extensive diverticulosis - most c/w microperforation of bowel. Currently, no abdominal pain/ tenderness, no leukocytosis, no inflammatory change seen on CT. Most likely perforation has sealed and there is currently, no urgent need for surgical intervention. Advised bowel rest for 1-2 days to ensure clinical course does not worsen, would treat with antibiotics for 7-10 day course (combo IV in house and oral upon discharge). She is agreeable with plan. Recommend admission to medical service with plan as outlined above. Present on Admission?: Yes History of Present Illness Reason for Consultation: abnormal CT findings Requesting Physician: Marino Cespedes MD History of Present Illness 83-year-old woman who presented to the emergency room with worsening chest pain. This is been going on for about 3 weeks. The pain is located up in the left shoulder in her mid chest and radiates into her back. She was seen at [facility] where she underwent a stress test and an echocardiogram to rule out cardiac causes. She thought that this may be related to her hiatal he rnia when that testing was within normal limits. She was doing okay until the pain worsened last night. It was of moderate severity. There are no abdominal symptoms at all. She has been eating well. She has a colostomy in place from a emergency appendectomy operation for perforated diverticulitis in the past. Her colostomy has been working fine. She underwent a CT scan of her chest in the e mergency room which showed pneumoperitoneum. She then had a CT scan of her abdomen and pelvis which showed small foci of pneumoperitoneum as well as extensive diverticulosis involving both small and large bowel as possible causes. Allergies Allergy/AdvReac Type Severity Reaction Status Date / Time codeine Allergy Intermediate GI Verified 05/26/19 15:47 SYMPTOMS Nausea Emesis fentanyl Allergy Unknown vomiting Unverified 05/26/19 15:47 Home Medications Home Medications Medication Instructions Recorded Confirmed Type Allergy Pill 1 tab PO DAILY 05/26/19 05/26/19 History amlodipine [Norvasc] 5 mg PO DAILY 05/26/19 05/26/19 History ascorbic acid-vitamin E-biotin 1 tab PO DAILY 05/26/19 05/26/19 History [Hair, Skin, Nails with Biotin] calcitriol [Rocaltrol] 0.25 mcg PO Q OTHER DAY 05/26/19 05/26/19 History cholecalciferol (vitamin D3) 50 mcg PO DAILY 05/26/19 05/26/19 History [Vitamin D3] famotidine [Pepcid] 40 mg PO BID 05/26/19 05/26/19 History levothyroxine 100 mcg PO DAILY 05/26/19 05/26/19 History losartan [Cozaar] 100 mg PO DAILY 05/26/19 05/26/19 History metoprolol tartrate [Lopressor] 100 mg PO DAILY 05/26/19 05/26/19 History pantoprazole [Protonix] 40 mg PO DAILY 05/26/19 05/26/19 History Patient History Medical History (Updated 05/26/19 @ 17:31 by Rosario Amezcua MD) Colostomy present Diverticulitis of colon with perforation Surgical History (Updated 05/26/19 @ 17:29 by Rosario Amezcua MD) History of cataract surgery Hx of cholecystectomy Social History Feels Safe at Home: Yes Smoking Status: Never smoker Review of Systems Review of Systems: All systems reviewed & are unremarkable except as noted in HPI & below Physical Exam Constitutional: WD/WN, vitals as above Eyes: PERRL, conjunctivae normal, anicteric sclerae Respiratory: normal respiratory effort, lungs clear to auscultation Cardiovascular: Rate/Rhythm: regular rate and regular rhythm Heart Sounds: no murmur Gastrointestinal (Abdomen): normal bowel sounds, soft, nontender, no hepatosplenomegaly Percussion/Palpation: abdomen nontender and no guarding ostomy with stool/ gas within bag no peritoneal signs no pain or tenderness Neurologic: moves all extremities; no focal motor deficits Psychiatric: Orientation: alert and oriented x 3 Results & Data Vital Signs (Past 12 Hours) Vital Signs Temp Pulse Resp BP Pulse Ox 05/26/19 16:36 73 22 157/81 H 95 05/26/19 15:34 36.9 C 81 18 101/80 96 05/26/19 15:31 79 20 101/80 94 05/26/19 15:30 80 21 95 05/26/19 15:23 95 05/26/19 15:17 79 18 158/69 H 96 Laboratory Results 05/26/19 05/26/19 05/26/19 Range/Units 17:09 16:08 15:34 WBC (4.8-10.8) K/uL RBC (4.2-5.4) M/uL Hgb (12.0-16.0) g/dL POC Hgb 12.2 (12.0-16.0) g/dl Hct (37-47) % POC Hct 36 L (37-47) % MCV (80-100) fL MCH (25-34) pg MCHC (32-36) g/dL RDW Std Deviation (36.4-46.3) fL RDW Coeff of Grec[place] (11.5-14.5) % Plt Count (130-400) K/uL MPV (7.4-10.4) fL Immature Gran % (Auto) % Neut % (Auto) % Lymph % (Auto) % [place] % (Auto) % Eos % (Auto) % Baso % (Auto) % Immature Gran # (Auto) (0.00-0.02) K/uL Neut # (Auto) (1.4-6.5) K/uL Lymph # (Auto) (1.2-3.4) K/uL [place] # (Auto) (0.11-0.59) K/uL Eos # (Auto) (0-0.5) K/uL Baso # (Auto) (0-0.2) K/uL PT (9.0-12.0) Seconds INR (0.9-1.1) APTT (21.0-31.0) Seconds PTT Ratio D-Dimer (0-500) ug/L FEU POC Sodium 138 (135-144) mmol/L Sodium (136-145) mmol/L POC Potassium 4.2 (3.3-5.0) mmol/L Potassium (3.5-5.1) mmol/L POC Chloride 100 L (101-112) mmol/L Chloride (98-107) mmol/L Carbon Dioxide (21-32) mmol/L POC Total CO2 27 (24-31) mEq/l Anion Gap (3-11) POC Anion Gap 16.0 (16-25) mmol/L POC BUN 15 (7-18) mg/dl BUN (7-18) mg/dl Creatinine (0.6-1.2) mg/dl POC Creatinine 0.6 (0.6-1.3) mg/dl Est Cr Clr Drug Dosing ml/min Est GFR ( Amer) Est GFR (Non-Af Amer) BUN/Creatinine Ratio (10-20) Glucose (70-99) mg/dl POC Glucose (other) 123 H (70-99) mg/dl Lactate Pending Calcium (8.5-10.1) mg/dl POC Ioniz Calcium [place] 1.13 (1.12-1.32) mmol/l Total Bilirubin (0.2-1) mg/dl AST (15-37) U/L ALT (12-78) U/L Alkaline Phosphatase (45-117) U/L Total Creatine Kinase (26-192) U/L CK-MB (CK-2) (0.5-3.6) ng/ml CK/CKMB % Calc (0-3.0) Troponin I < 0.015 (0-0.045) ng/ml Total Protein (6.4-8.2) gm/dl Albumin (3.4-5.0) gm/dl Globulin (2.5-4.0) gm/dl Albumin/Globulin Ratio (0.9-2) Lipase (73-393) U/L 05/26/19 05/26/19 05/26/19 Range/Units 14:25 14:25 14:25 WBC 10.34 (4.8-10.8) K/uL RBC 4.24 (4.2-5.4) M/uL Hgb 12.5 (12.0-16.0) g/dL POC Hgb (12.0-16.0) g/dl Hct 37.4 (37-47) % POC Hct (37-47) % MCV 88.2 (80-100) fL MCH 29.5 (25-34) pg MCHC 33.4 (32-36) g/dL RDW Std Deviation 43.1 (36.4-46.3) fL RDW Coeff of Grecia 13.4 (11.5-14.5) % Plt Count 300 (130-400) K/uL MPV 10.5 H (7.4-10.4) fL Immature Gran % (Auto) 0.2 % Neut % (Auto) 81.9 % Lymph % (Auto) 8.8 % [place] % (Auto) 8.2 % Eos % (Auto) 0.6 % Baso % (Auto) 0.3 % Immature Gran # (Auto) 0.02 (0.00-0.02) K/uL Neut # (Auto) 8.47 H (1.4-6.5) K/uL Lymph # (Auto) 0.91 L (1.2-3.4) K/uL [place] # (Auto) 0.85 H (0.11-0.59) K/uL Eos # (Auto) 0.06 (0-0.5) K/uL Baso # (Auto) 0.03 (0-0.2) K/uL PT 10.8 (9.0-12.0) Seconds INR 1.0 (0.9-1.1) APTT 29.9 (21.0-31.0) Seconds PTT Ratio 1.1 D-Dimer 710 H* (0-500) ug/L FEU POC Sodium (135-144) mmol/L Sodium 137 (136-145) mmol/L POC Potassium (3.3-5.0) mmol/L Potassium 3.6 (3.5-5.1) mmol/L POC Chloride (101-112) mmol/L Chloride 107 (98-107) mmol/L Carbon Dioxide 26 (21-32) mmol/L POC Total CO2 (24-31) mEq/l Anion Gap 4.0 (3-11) POC Anion Gap (16-25) mmol/L POC BUN (7-18) mg/dl BUN 14 (7-18) mg/dl Creatinine 0.79 (0.6-1.2) mg/dl POC Creatinine (0.6-1.3) mg/dl Est Cr Clr Drug Dosing 50.2 ml/min Est GFR ( Amer) 80.8 Est GFR (Non-Af Amer) 69.7 BUN/Creatinine Ratio 17.4 (10-20) Glucose 135 H (70-99) mg/dl POC Glucose (other) (70-99) mg/dl Lactate Calcium 8.2 L (8.5-10.1) mg/dl POC Ioniz Calcium [place] (1.12-1.32) mmol/l Total Bilirubin 0.8 (0.2-1) mg/dl AST 18 (15-37) U/L ALT 26 (12-78) U/L Alkaline Phosphatase 88 (45-117) U/L Total Creatine Kinase 69 (26-192) U/L CK-MB (CK-2) 2.3 (0.5-3.6) ng/ml CK/CKMB % Calc 3.3 H (0-3.0) Troponin I < 0.015 (0-0.045) ng/ml Total Protein 6.9 (6.4-8.2) gm/dl Albumin 2.9 L (3.4-5.0) gm/dl Globulin 4.0 (2.5-4.0) gm/dl Albumin/Globulin Ratio 0.7 L (0.9-2) Lipase 84 (73-393) U/L Diagnostic Findings CT scan abd/ pelvis: FINDINGS: Bundle Helper topogram: Unremarkable. Lung bases: Normal heart size. Coronary artery calcification. No pericardial or pleural effusion. Minimal dependent changes likely atelectasis. Liver: Normal morphology. Multilobular hypodense lesion in the right hepatic lobe likely hepatic cyst or hemangioma. Patent hepatic vasculature. Biliary: Mild biliary ductal prominence likely a reservoir effect in the post cholecystectomy state. Gallbladder surgically absent. Pancreas: Normal. Spleen: Normal. Adrenal glands: Normal. Kidneys and ureters: Normal. No hydronephrosis. Bladder: Normal. Pelvic organs: Uterus and ovaries normal. Bowel: Descending colostomy in the left lower quadrant. Status post sigmoidectomy. Contreras's pouch at the upper rectum. A few diverticula at the upper rectum. A few diverticula are also noted in the distal descending colon and scattered throughout the remainder of the colon. No colonic wall thickening or pericolonic inflammatory change. The appendix is normal. No bowel obstruction. Fluid noted throughout the small bowel without evidence of wall thickening or perienteric inflammatory change. Duodenal diverticula at the level of the descending portion. Multiple prominent small bowel diverticula are suspected predominantly in the proximal small bowel. No focal inflammatory change is appreciated. The stomach is grossly unremarkable. Peritoneal cavity: Scattered free intraperitoneal gas evident predominantly in the mid to upper abdomen. This also extends extends into the parastomal hernia associated with a colostomy. No pneumatosis is evident. No free intraperitoneal fluid. Lymph nodes: No enlarged lymph nodes in the abdomen or pelvis. Vasculature: Atherosclerosis of the normal caliber abdominal aorta. IVC patent. Abdominal wall: Parastomal fat-containing hernia in the left lower quadrant associated with the colostomy. Postsurgical changes of the ventral abdominal wall. Small periumbilical hernia. Musculoskeletal: Degenerative changes of the spine. IMPRESSION: 1. Extensive scattered foci of pneumoperitoneum predominantly in the mid to upper abdomen. The lack of oral contrast limits identification of a focal site of bowel discontinuity, however, this finding is consistent with perforated hollow viscus. Extensive small bowel diverticulosis as well as less extensive colonic diverticulosis. This may be a potential etiology. No focal inflammatory change to suggest the site of perforation. Surgical consultation is necessary 2. Fluid throughout the small bowel may suggest a mild ileus or enteritis. This may be secondarily reactive to the presence of the perforation. 3. Status post sigmoidectomy with a left lower quadrant colostomy. 4. Status post cholecystectomy.
--- NOTE | 2019-05-26 19:01 | History & Physical Report ---
Date of Service May 26, 2019 Assessment & Plan (1) Pneumoperitoneum: 83 year old female with history of Diverticulosis, Perforated Colon s/p Sigmoid Resection, Colostomy placement 2019, GERD, Hiatal Hernia, presenting with epigastric pain x 2 days. PNEUMOPERITONEUM, LIKELY SECONDARY TO PERFORATED VISCUS, IN THE SETTING OF SMALL BOWEL AND COLONIC DIVERTICULOSIS POSSIBLE ILEUS -- history of perforated colon, s/p sigmoid resection and colostomy placement 2019 -- Gen Surg consulted, perforation likely has sealed off recommend NPO, IV antibiotics -- strict NPO IV Zosyn IV [id number] -- monitor electrolytes -- PO medications on hold CHEST DISCOMFORT -- described as starting in the epigastric region then radiates to substernal chest area, left upper jaw and arm -- admitted for work up 2 weeks ago in [facility], negative stress test will request records from [place] -- EKG: sinus rhythm with 1st degree AV block no signs of acute ischemia Troponin: negative x 1 -- check serial troponins x 2 repeat EKG in AM -- usual PO Metoprolol on hold -- chest discomfort seems to be GI in etiology, especially with history of GERD, Hiatal hernia if persistent, may need to consult GI continue Famotidine, Protonix ELEVATED D DIMER -- 700s CT angio chest: negative for PE -- Doppler US ordered HYPERTENSION -- stable -- usual Metoprolol, Amlodipine on hold as patient is on strict NPO order monitor HYPOTHYROIDISM -- usual Levothyroxine on hold DVT prophylaxis -- Doppler US: pending, if negative, order SCDs hold off on anticoagulation, in light of possible surgical procedure Full code as per patient Disposition d/c home when medically stable plan of care discussed with patient and her daughter in detail and at length all questions answered they are understanding, agreeable, comfortable with plan of care Jerrod Valdez MD History of Present Illness 83 year old female with history of Diverticulosis, Perforated Colon s/p Sigmoid Resection, Colostomy placement 2019, GERD, Hiatal Hernia, presenting with epigastric pain x 2 days. 2 weeks ago, patient was admitted to [facility] for evaluation of substernal, epigastric discomfort. Cardiac work up was done including a Stress Test and as per patient's daughter, all the tests were negative. She was feeling better since discharge until yesterday when patient started to have epigastric discomfort again radiating to her chest, left jaw and arm- intermittent, lasting for a minutes, not associated with exertion or eating, relieved by belching. No abdominal pain, nausea/vomiting, fever/chills, shortness of breath. (+) normal colostomy output She came to the ER today in light of persistence of epigastric discomfort. D Dimer: 700s CT chest: no PE but (+) peritoneum Ct abdomen/pelvis: 1. Extensive scattered foci of pneumoperitoneum predominantly in the mid to upper abdomen. The lack of oral contrast limits identification of a focal site of bowel discontinuity, however, this finding is consistent with perforated hollow viscus. Extensive small bowel diverticulosis as well as less extensive colonic diverticulosis. This may be a potential etiology. No focal inflammatory change to suggest the site of perforation. Surgical consultation is necessary 2. Fluid throughout the small bowel may suggest a mild ileus or enteritis. This may be secondarily reactive to the presence of the perforation. 3. Status post sigmoidectomy with a left lower quadrant colostomy. 4. Status post cholecystectomy. She was given Sucralfate, Famotidine, Zosyn. She was also seen by Gen Surg Dr. Amezcua who recommends bowel rest, and IV antibiotics. On exam, patient was seen resting in bed, comfortable, in good spirits, states she feels improved compared to admission. Primary Care Provider: Nahid Nicholas Allergies Allergy/AdvReac Type Severity Reaction Status Date / Time codeine Allergy Intermediate GI Verified 05/26/19 15:47 SYMPTOMS Nausea Emesis fentanyl Allergy Unknown vomiting Unverified 05/26/19 15:47 Home Medications Home Medications Medication Instructions Recorded Confirmed Type Allergy Pill 1 tab PO DAILY 05/26/19 05/26/19 History amlodipine [Norvasc] 5 mg PO DAILY 05/26/19 05/26/19 History ascorbic acid-vitamin E-biotin 1 tab PO DAILY 05/26/19 05/26/19 History [Hair, Skin, Nails with Biotin] calcitriol [Rocaltrol] 0.25 mcg PO Q OTHER DAY 05/26/19 05/26/19 History cholecalciferol (vitamin D3) 50 mcg PO DAILY 05/26/19 05/26/19 History [Vitamin D3] famotidine [Pepcid] 40 mg PO BID 05/26/19 05/26/19 History levothyroxine 100 mcg PO DAILY 05/26/19 05/26/19 History losartan [Cozaar] 100 mg PO DAILY 05/26/19 05/26/19 History metoprolol tartrate [Lopressor] 100 mg PO DAILY 05/26/19 05/26/19 History pantoprazole [Protonix] 40 mg PO DAILY 05/26/19 05/26/19 History Past Med/Surg History Medical History (Updated 05/26/19 @ 21:04 by Jerrod Valdez MD) Colostomy present Diverticulitis of colon with perforation Surgical History (Updated 05/26/19 @ 17:29 by Rosario Amezcua MD) History of cataract surgery Hx of cholecystectomy Social History Preferred Language: Kiswahili Communication Ability: Effective Player Piano Technician Required: No Beliefs That Will Affect Care: None Current Living Situation: Alone Feels Safe at Home: Yes Safety Concerns: Feels Safe At This Time Smoking Status: Never smoker Hx Alcohol Use: No Hx Substance Use: No Review of Systems Review of Systems: All systems reviewed & are unremarkable except as noted in HPI & below Physical Exam Physical Exam: General- oriented x 3, not in distress, speaks in sentences with no effort or accessory muscle use Head- atraumatic Eyes- PERRL, EOMI, anicteric ENT- oropharynx clear (+) surgical scar, anterior neck Neck- supple, no JVD, no adenopathy, no thyromegaly; carotids +2/2, no bruits appreciated Lungs- clear to auscultation bilaterally, no rales/wheezes Heart- normal rate, regular rhythm; no murmur, no gallop, no rub appreciated Abdomen- normal bowel sounds, nondistended, soft, nontender, no masses or hepatosplenomegaly (+) colostomy LLQ: brown formed stool Extremities- no pretibial edema, no calf tenderness; peripheral pulses intact Neuro- alert, oriented x 3; CN 2-12 grossly intact; motor 5/5 bilaterally;sensation 100% on all extremities; no other gross focal neurologic deficits Skin- warm & dry Results & Data Results & Data (MN) Vital Signs (Past 12 Hours) Vital Signs Temp Pulse Resp BP Pulse Ox 05/26/19 18:38 70 16 05/26/19 18:31 126/40 L 05/26/19 18:01 73 18 129/59 L 95 05/26/19 18:00 71 21 95 05/26/19 17:41 70 21 94 05/26/19 17:40 70 21 133/56 L 95 05/26/19 17:38 70 21 96 05/26/19 17:00 75 23 05/26/19 16:36 73 22 157/81 H 95 05/26/19 15:34 36.9 C 81 18 101/80 96 05/26/19 15:31 79 20 101/80 94 05/26/19 15:30 80 21 95 05/26/19 15:23 95 05/26/19 15:17 79 18 158/69 H 96 Laboratory Results Laboratory Results - last 24 hr 05/26/19 05/26/19 05/26/19 14:25 14:25 14:25 WBC 10.34 RBC 4.24 Hgb 12.5 POC Hgb Hct 37.4 POC Hct MCV 88.2 MCH 29.5 MCHC 33.4 RDW Std Deviation 43.1 RDW Coeff of Grecia 13.4 Plt Count 300 MPV 10.5 H Immature Gran % (Auto) 0.2 Neut % (Auto) 81.9 Lymph % (Auto) 8.8 [place] % (Auto) 8.2 Eos % (Auto) 0.6 Baso % (Auto) 0.3 Immature Gran # (Auto) 0.02 Neut # (Auto) 8.47 H Lymph # (Auto) 0.91 L [place]ne # (Auto) 0.85 H Eos # (Auto) 0.06 Baso # (Auto) 0.03 PT 10.8 INR 1.0 APTT 29.9 PTT Ratio 1.1 D-Dimer 710 H* POC Sodium Sodium 137 POC Potassium Potassium 3.6 POC Chloride Chloride 107 Carbon Dioxide 26 POC Total CO2 Anion Gap 4.0 POC Anion Gap POC BUN BUN 14 Creatinine 0.79 POC Creatinine Est Cr Clr Drug Dosing 50.2 Est GFR ( Amer) 80.8 Est GFR (Non-Af Amer) 69.7 BUN/Creatinine Ratio 17.4 Glucose 135 H POC Glucose (other) Lactate Calcium 8.2 L POC Ioniz Calcium Kendell Total Bilirubin 0.8 AST 18 ALT 26 Alkaline Phosphatase 88 Total Creatine Kinase 69 CK-MB (CK-2) 2.3 CK/CKMB % Calc 3.3 H Troponin I < 0.015 Total Protein 6.9 Albumin 2.9 L Globulin 4.0 Albumin/Globulin Ratio 0.7 L Lipase 84 05/26/19 05/26/19 05/26/19 15:34 16:08 17:09 WBC RBC Hgb POC Hgb 12.2 Hct POC Hct 36 L MCV MCH MCHC RDW Std Deviation RDW Coeff of Grecia Plt Count MPV Immature Gran % (Auto) Neut % (Auto) Lymph % (Auto) Duc[place] % (Auto) Eos % (Auto) Baso % (Auto) Immature Gran # (Auto) Neut # (Auto) Lymph # (Auto) Duc[place] # (Auto) Eos # (Auto) Baso # (Auto) PT INR APTT PTT Ratio D-Dimer POC Sodium 138 Sodium POC Potassium 4.2 Potassium POC Chloride 100 L Chloride Carbon Dioxide POC Total CO2 27 Anion Gap POC Anion Gap 16.0 POC BUN 15 BUN Creatinine POC Creatinine 0.6 Est Cr Clr Drug Dosing Est GFR ( Amer) Est GFR (Non-Af Amer) BUN/Creatinine Ratio Glucose POC Glucose (other) 123 H Lactate 1.0 Calcium POC Ioniz Calcium Kendell 1.13 Total Bilirubin AST ALT Alkaline Phosphatase Total Creatine Kinase CK-MB (CK-2) CK/CKMB % Calc Troponin I < 0.015 Total Protein Albumin Globulin Albumin/Globulin Ratio Lipase Diagnostic Findings CT chest: IMPRESSION: 1. Pneumoperitoneum. This is highly concerning for perforated hollow viscus. Please ensure the absence of recent surgery. Dedicated abdominal imaging recommended. 2. No evidence of pulmonary embolus. No acute intrathoracic pathology. 3. Nonspecific prominent mediastinal lymph nodes. CT abdomen: IMPRESSION: 1. Extensive scattered foci of pneumoperitoneum predominantly in the mid to upper abdomen. The lack of oral contrast limits identification of a focal site of bowel discontinuity, however, this finding is consistent with perforated hollow viscus. Extensive small bowel diverticulosis as well as less extensive colonic diverticulosis. This may be a potential etiology. No focal inflammatory change to suggest the site of perforation. Surgical consultation is necessary 2. Fluid throughout the small bowel may suggest a mild ileus or enteritis. This may be secondarily reactive to the presence of the perforation. 3. Status post sigmoidectomy with a left lower quadrant colostomy. 4. Status post cholecystectomy. ECG Additional Comments: sinus rhythm with 1st degree av block RBBB HR 79 Code Status & VTE Plan Code Status FULL CODE PER PATIENT VTE Prophylaxis Plan VTE Prophylaxis will be ordered: Yes
[2019-05-26] MEDS ORDERED: ONDANSETRON INJ 2 MG/ML 2 ML VIAL IV PRN (19:47)
[2019-05-26] MEDS: D5NSS + 20MEQ KCL 20 MEQ/1,000 ML BAG IV SCH (20:27)
[2019-05-26] MEDS ORDERED: FAMOTIDINE 20 MG in SYRINGE 3 ML IV SCH (21:00)
[2019-05-26] MEDS: PIPERACILLIN/TAZOBACTAM 3.375 GM in DEXTROSE 5% 100 ML IV SCH (21:46)
--- NOTE | 2019-05-26 21:46 | Ultrasound Report ---
US venous doppler LE BI CLINICAL HISTORY: 83 years-old Female presenting with elevated d dimer, r/o dvt. TECHNIQUE: Real-time grayscale and color and spectral Doppler ultrasound imaging of the veins of the bilateral lower extremities was performed. Compression and augmentation were also utilized. COMPARISON: None. FINDINGS: RIGHT: Common femoral vein: Patent. Greater saphenous vein (superficial): Patent. Deep femoral vein: Patent. Femoral vein: Patent. Popliteal vein: Patent. Calf veins: Patent. LEFT: Common femoral vein: Patent. Greater saphenous vein (superficial): Patent. Deep femoral vein: Patent. Femoral vein: Patent. Popliteal vein: Patent. Calf veins: Patent. Other: None. IMPRESSION: No evidence of deep venous thrombosis. ACT 112: Negative or not required by law. Electronically signed by: Onur Truong M.D. 05/26/2019 9:45 PM
[2019-05-27 04:19] LABS: Basophils # (auto) 0.01 K/uL (0-0.2); Basophils % (auto) 0.2 %; Eosinophils # (auto) 0.08 K/uL (0-0.5); Eosinophils % (auto) 1.2 %; Hematocrit (blood only) 34.5 % (37-47); Hemoglobin 11.2 g/dL (12.0-16.0); Immature Granulocytes # (auto) 0.01 K/uL (0.00-0.02); Immature Granulocytes % (auto) 0.2 %; Lymphocytes # (auto) 1.45 K/uL (1.2-3.4); Lymphocytes % (auto) 22.2 %; Mean Corpuscular Hemoglobin 28.7 pg (25-34); Mean Corpuscular Hgb Conc 32.5 g/dL (32-36); Mean Corpuscular Volume 88.5 fL (80-100); Mean Platelet Volume 10.2 fL (7.4-10.4); Monocytes # (auto) 0.58 K/uL (0.11-0.59); Monocytes % (auto) 8.9 %; Neutrophils # (auto) 4.41 K/uL (1.4-6.5); Neutrophils % (auto) 67.3 %; Platelet Count 260 K/uL (130-400); RDW Coefficient of Variation 13.3 % (11.5-14.5); RDW Standard Deviation 42.5 fL (36.4-46.3); White Blood Count 6.54 K/uL (4.8-10.8)
[2019-05-27 04:40] LABS: BUN Creatinine Ratio 17.3 (10-20); Calcium 8.4 mg/dl (8.5-10.1); Creatinine Clr Calc Pharmacy 53.3 ml/min; Est GFR (African American) 90.4; Magnesium 1.9 mg/dl (1.8-2.4)
[2019-05-27] MEDS: PIPERACILLIN/TAZOBACTAM 3.375 GM in DEXTROSE 5% 100 ML IV SCH ×3 (06:29→21:28)
[2019-05-27] MEDS ORDERED: LEVOTHYROXINE SODIUM 50 MCG in SYRINGE 0 ML IV SCH (09:00)
[2019-05-27] MEDS ORDERED: FAMOTIDINE 20 MG in SYRINGE 3 ML IV SCH (09:00)
[2019-05-27] MEDS: D5NSS + 20MEQ KCL 20 MEQ/1,000 ML BAG IV SCH (10:01)
[2019-05-27] MEDS ORDERED: PANTOprazole 40 MG in SYRINGE 0 ML IV SCH (11:00)
--- NOTE | 2019-05-27 11:38 | Surgery Progress Note ---
Date of Service May 27, 2019 Assessment & Plan (1) Perforation of intestine due to diverticulitis of gastrointestinal tract: 83 [address] woman with CT scan showing scattered foci of free air and extensive diverticulosis - most c/w microperforation of bowel. Currently, no abdominal pain/ tenderness, no leukocytosis, no inflammatory change seen on CT. Most likely perforation has sealed and there is currently, no urgent need for surgical intervention. Improving clinically - OK to start clear liquids today, advance diet tomorrow if no worsening pain or lab changes. Continue IV antibiotics. Will ask for ostomy nurse consult tomorrow to help change bag as pt does not have all of her appliances with her. Subjective Sitting in bed. Feels well. Chest pain much improved - down to occasional twinge. No abdominal pain. Hungry and wondering whether she can eat. Concerned regarding colostomy as bag needs to be changed today. Review of Systems Review of Systems: All systems reviewed & are unremarkable except as noted in HPI & below Physical Exam Constitutional: WD/WN, vitals as above Eyes: PERRL, conjunctivae normal, anicteric sclerae Respiratory: normal respiratory effort, lungs clear to auscultation Cardiovascular: Rate/Rhythm: regular rate and regular rhythm Heart Sounds: no murmur Gastrointestinal (Abdomen): normal bowel sounds, soft, nontender, no hepatosplenomegaly Percussion/Palpation: abdomen nontender and no guarding Neurologic: moves all extremities; no focal motor deficits Psychiatric: Orientation: alert and oriented x 3 Results & Data Vital Signs (Past 12 Hours) Vital Signs Temp Pulse Pulse Resp BP Pulse Ox 05/27/19 08:31 69 05/27/19 07:21 36.8 C 80 18 147/74 H 94 05/27/19 04:52 36.8 C 88 18 144/88 H 96 05/26/19 23:56 36.6 C 69 18 121/75 95 Laboratory Results 05/27/19 05/27/19 05/27/19 Range/Units 03:50 03:50 03:50 WBC 6.54 (4.8-10.8) K/uL RBC 3.90 L (4.2-5.4) M/uL Hgb 11.2 L (12.0-16.0) g/dL POC Hgb (12.0-16.0) g/dl Hct 34.5 L (37-47) % POC Hct (37-47) % MCV 88.5 (80-100) fL MCH 28.7 (25-34) pg MCHC 32.5 (32-36) g/dL RDW Std Deviation 42.5 (36.4-46.3) fL RDW Coeff of Grecia 13.3 (11.5-14.5) % Plt Count 260 (130-400) K/uL MPV 10.2 (7.4-10.4) fL Immature Gran % (Auto) 0.2 % Neut % (Auto) 67.3 % Lymph % (Auto) 22.2 % Chambers % (Auto) 8.9 % Eos % (Auto) 1.2 % Baso % (Auto) 0.2 % Immature Gran # (Auto) 0.01 (0.00-0.02) K/uL Neut # (Auto) 4.41 (1.4-6.5) K/uL Lymph # (Auto) 1.45 (1.2-3.4) K/uL Chambers # (Auto) 0.58 (0.11-0.59) K/uL Eos # (Auto) 0.08 (0-0.5) K/uL Baso # (Auto) 0.01 (0-0.2) K/uL PT (9.0-12.0) Seconds INR (0.9-1.1) APTT (21.0-31.0) Seconds PTT Ratio D-Dimer (0-500) ug/L FEU POC Sodium (135-144) mmol/L Sodium 141 (136-145) mmol/L POC Potassium (3.3-5.0) mmol/L Potassium 4.0 (3.5-5.1) mmol/L POC Chloride (101-112) mmol/L Chloride 113 H (98-107) mmol/L Carbon Dioxide 25 (21-32) mmol/L POC Total CO2 (24-31) mEq/l Anion Gap 3.0 (3-11) POC Anion Gap (16-25) mmol/L POC BUN (7-18) mg/dl BUN 12 (7-18) mg/dl Creatinine 0.72 (0.6-1.2) mg/dl POC Creatinine (0.6-1.3) mg/dl Est Cr Clr Drug Dosing 53.3 ml/min Est GFR ( Amer) 90.4 Est GFR (Non-Af Amer) 78.0 BUN/Creatinine Ratio 17.3 (10-20) Glucose 114 H (70-99) mg/dl POC Glucose (other) (70-99) mg/dl Lactate (0.4-2.0) mmol/L Calcium 8.4 L (8.5-10.1) mg/dl POC Ioniz Calcium Kendell (1.12-1.32) mmol/l Magnesium 1.9 (1.8-2.4) mg/dl Total Bilirubin (0.2-1) mg/dl AST (15-37) U/L ALT (12-78) U/L Alkaline Phosphatase (45-117) U/L Total Creatine Kinase (26-192) U/L CK-MB (CK-2) (0.5-3.6) ng/ml CK/CKMB % Calc (0-3.0) Troponin I < 0.015 (0-0.045) ng/ml Total Protein (6.4-8.2) gm/dl Albumin (3.4-5.0) gm/dl Globulin (2.5-4.0) gm/dl Albumin/Globulin Ratio (0.9-2) Lipase (73-393) U/L 05/26/19 05/26/19 05/26/19 Range/Units 21:49 17:09 16:08 WBC (4.8-10.8) K/uL RBC (4.2-5.4) M/uL Hgb (12.0-16.0) g/dL POC Hgb (12.0-16.0) g/dl Hct (37-47) % POC Hct (37-47) % MCV (80-100) fL MCH (25-34) pg MCHC (32-36) g/dL RDW Std Deviation (36.4-46.3) fL RDW Coeff of Grecia (11.5-14.5) % Plt Count (130-400) K/uL MPV (7.4-10.4) fL Immature Gran % (Auto) % Neut % (Auto) % Lymph % (Auto) % Chambers % (Auto) % Eos % (Auto) % Baso % (Auto) % Immature Gran # (Auto) (0.00-0.02) K/uL Neut # (Auto) (1.4-6.5) K/uL Lymph # (Auto) (1.2-3.4) K/uL Chambers # (Auto) (0.11-0.59) K/uL Eos # (Auto) (0-0.5) K/uL Baso # (Auto) (0-0.2) K/uL PT (9.0-12.0) Seconds INR (0.9-1.1) APTT (21.0-31.0) Seconds PTT Ratio D-Dimer (0-500) ug/L FEU POC Sodium (135-144) mmol/L Sodium (136-145) mmol/L POC Potassium (3.3-5.0) mmol/L Potassium (3.5-5.1) mmol/L POC Chloride (101-112) mmol/L Chloride (98-107) mmol/L Carbon Dioxide (21-32) mmol/L POC Total CO2 (24-31) mEq/l Anion Gap (3-11) POC Anion Gap (16-25) mmol/L POC BUN (7-18) mg/dl BUN (7-18) mg/dl Creatinine (0.6-1.2) mg/dl POC Creatinine (0.6-1.3) mg/dl Est Cr Clr Drug Dosing ml/min Est GFR ( Amer) Est GFR (Non-Af Amer) BUN/Creatinine Ratio (10-20) Glucose (70-99) mg/dl POC Glucose (other) (70-99) mg/dl Lactate 1.0 (0.4-2.0) mmol/L Calcium (8.5-10.1) mg/dl POC Ioniz Calcium Kendell (1.12-1.32) mmol/l Magnesium (1.8-2.4) mg/dl Total Bilirubin (0.2-1) mg/dl AST (15-37) U/L ALT (12-78) U/L Alkaline Phosphatase (45-117) U/L Total Creatine Kinase (26-192) U/L CK-MB (CK-2) (0.5-3.6) ng/ml CK/CKMB % Calc (0-3.0) Troponin I < 0.015 < 0.015 (0-0.045) ng/ml Total Protein (6.4-8.2) gm/dl Albumin (3.4-5.0) gm/dl Globulin (2.5-4.0) gm/dl Albumin/Globulin Ratio (0.9-2) Lipase (73-393) U/L 05/26/19 05/26/19 05/26/19 Range/Units 15:34 14:25 14:25 WBC 10.34 (4.8-10.8) K/uL RBC 4.24 (4.2-5.4) M/uL Hgb 12.5 (12.0-16.0) g/dL POC Hgb 12.2 (12.0-16.0) g/dl Hct 37.4 (37-47) % POC Hct 36 L (37-47) % MCV 88.2 (80-100) fL MCH 29.5 (25-34) pg MCHC 33.4 (32-36) g/dL RDW Std Deviation 43.1 (36.4-46.3) fL RDW Coeff of Grecia 13.4 (11.5-14.5) % Plt Count 300 (130-400) K/uL MPV 10.5 H (7.4-10.4) fL Immature Gran % (Auto) 0.2 % Neut % (Auto) 81.9 % Lymph % (Auto) 8.8 % Chambers % (Auto) 8.2 % Eos % (Auto) 0.6 % Baso % (Auto) 0.3 % Immature Gran # (Auto) 0.02 (0.00-0.02) K/uL Neut # (Auto) 8.47 H (1.4-6.5) K/uL Lymph # (Auto) 0.91 L (1.2-3.4) K/uL Chambers # (Auto) 0.85 H (0.11-0.59) K/uL Eos # (Auto) 0.06 (0-0.5) K/uL Baso # (Auto) 0.03 (0-0.2) K/uL PT (9.0-12.0) Seconds INR (0.9-1.1) APTT (21.0-31.0) Seconds PTT Ratio D-Dimer (0-500) ug/L FEU POC Sodium 138 (135-144) mmol/L Sodium 137 (136-145) mmol/L POC Potassium 4.2 (3.3-5.0) mmol/L Potassium 3.6 (3.5-5.1) mmol/L POC Chloride 100 L (101-112) mmol/L Chloride 107 (98-107) mmol/L Carbon Dioxide 26 (21-32) mmol/L POC Total CO2 27 (24-31) mEq/l Anion Gap 4.0 (3-11) POC Anion Gap 16.0 (16-25) mmol/L POC BUN 15 (7-18) mg/dl BUN 14 (7-18) mg/dl Creatinine 0.79 (0.6-1.2) mg/dl POC Creatinine 0.6 (0.6-1.3) mg/dl Est Cr Clr Drug Dosing 50.2 ml/min Est GFR ( Amer) 80.8 Est GFR (Non-Af Amer) 69.7 BUN/Creatinine Ratio 17.4 (10-20) Glucose 135 H (70-99) mg/dl POC Glucose (other) 123 H (70-99) mg/dl Lactate (0.4-2.0) mmol/L Calcium 8.2 L (8.5-10.1) mg/dl POC Ioniz Calcium Kendell 1.13 (1.12-1.32) mmol/l Magnesium (1.8-2.4) mg/dl Total Bilirubin 0.8 (0.2-1) mg/dl AST 18 (15-37) U/L ALT 26 (12-78) U/L Alkaline Phosphatase 88 (45-117) U/L Total Creatine Kinase 69 (26-192) U/L CK-MB (CK-2) 2.3 (0.5-3.6) ng/ml CK/CKMB % Calc 3.3 H (0-3.0) Troponin I < 0.015 (0-0.045) ng/ml Total Protein 6.9 (6.4-8.2) gm/dl Albumin 2.9 L (3.4-5.0) gm/dl Globulin 4.0 (2.5-4.0) gm/dl Albumin/Globulin Ratio 0.7 L (0.9-2) Lipase 84 (73-393) U/L 05/26/19 Range/Units 14:25 WBC (4.8-10.8) K/uL RBC (4.2-5.4) M/uL Hgb (12.0-16.0) g/dL POC Hgb (12.0-16.0) g/dl Hct (37-47) % POC Hct (37-47) % MCV (80-100) fL MCH (25-34) pg MCHC (32-36) g/dL RDW Std Deviation (36.4-46.3) fL RDW Coeff of Grecia (11.5-14.5) % Plt Count (130-400) K/uL MPV (7.4-10.4) fL Immature Gran % (Auto) % Neut % (Auto) % Lymph % (Auto) % Chambers % (Auto) % Eos % (Auto) % Baso % (Auto) % Immature Gran # (Auto) (0.00-0.02) K/uL Neut # (Auto) (1.4-6.5) K/uL Lymph # (Auto) (1.2-3.4) K/uL Chambers # (Auto) (0.11-0.59) K/uL Eos # (Auto) (0-0.5) K/uL Baso # (Auto) (0-0.2) K/uL PT 10.8 (9.0-12.0) Seconds INR 1.0 (0.9-1.1) APTT 29.9 (21.0-31.0) Seconds PTT Ratio 1.1 D-Dimer 710 H* (0-500) ug/L FEU POC Sodium (135-144) mmol/L Sodium (136-145) mmol/L POC Potassium (3.3-5.0) mmol/L Potassium (3.5-5.1) mmol/L POC Chloride (101-112) mmol/L Chloride (98-107) mmol/L Carbon Dioxide (21-32) mmol/L POC Total CO2 (24-31) mEq/l Anion Gap (3-11) POC Anion Gap (16-25) mmol/L POC BUN (7-18) mg/dl BUN (7-18) mg/dl Creatinine (0.6-1.2) mg/dl POC Creatinine (0.6-1.3) mg/dl Est Cr Clr Drug Dosing ml/min Est GFR ( Amer) Est GFR (Non-Af Amer) BUN/Creatinine Ratio (10-20) Glucose (70-99) mg/dl POC Glucose (other) (70-99) mg/dl Lactate (0.4-2.0) mmol/L Calcium (8.5-10.1) mg/dl POC Ioniz Calcium Kendell (1.12-1.32) mmol/l Magnesium (1.8-2.4) mg/dl Total Bilirubin (0.2-1) mg/dl AST (15-37) U/L ALT (12-78) U/L Alkaline Phosphatase (45-117) U/L Total Creatine Kinase (26-192) U/L CK-MB (CK-2) (0.5-3.6) ng/ml CK/CKMB % Calc (0-3.0) Troponin I (0-0.045) ng/ml Total Protein (6.4-8.2) gm/dl Albumin (3.4-5.0) gm/dl Globulin (2.5-4.0) gm/dl Albumin/Globulin Ratio (0.9-2) Lipase (73-393) U/L
--- NOTE | 2019-05-27 12:02 | Electrocardiogram Report ---
Test Reason : Blood Pressure : / mmHG Vent. Rate : 075 BPM Atrial Rate : 075 BPM P-R Int : 210 ms QRS Dur : 134 ms QT Int : 396 ms P-R-T Axes : 032 005 022 degrees QTc Int : 442 ms Sinus rhythm with 1st degree A-V block Right bundle branch block Abnormal ECG When compared with ECG of 03-MAR-2016 00:32, Nonspecific T wave abnormality, improved in Anterior leads Confirmed by Casper Gonzalez ([id number]) on 05/27/2019 12:01:51 PM Referred By: Confirmed By:Casper Gonzalez
--- NOTE | 2019-05-27 13:59 | Hospitalist Progress Note ---
Date of Service May 27, 2019 Assessment & Plan (1) Pneumoperitoneum: Patient is an 83-year-old female with H/O Diverticulosis, Perforated Colon s/p Sigmoid Resection, Colostomy placement 2019, GERD, Hiatal Hernia, presenting with epigastric pain x 2 days. Pneumoperitoneum Possible Ileus Likely secondary to micro perforation of bowel--extensive diverticulosis H/O perforated colon S/P sigmoid resection and colostomy placement 2019 --CT ABD:Extensive scattered foci of pneumoperitoneum predominantly in the mid to upper abdomen. The lack of oral contrast limits identification of a focal site of bowel discontinuity, however, this finding is consistent with perforated hollow viscus. Extensive small bowel diverticulosis as well as less extensive colonic diverticulosis. This may be a potential etiology. No focal inflammatory change to suggest the site of perforation. Surgical consultation is necessary. Fluid throughout the small bowel may suggest a mild ileus or enteritis. This may be secondarily reactive to the presence of the perforation. Status post sigmoidectomy with a left lower quadrant colostomy. Status post cholecystectomy. --Currently symptoms resolved: Likely perforation has sealed. --Continue IV antibiotics, IV fluids --Appreciate surgery input --Clear liquid diet today --No plan for any surgical intervention --Plan to advance diet tomorrow if patient continues to improve Chest Discomfort Stated that epigastric region has radiated to substernal chest area Chest discomfort resolved Patient had negative stress test 2 weeks ago at [facility] Troponin : Negative Continue home medications--PPI, H2 dash H/O GERD, Hiatal hernia Continue Famotidine, Protonix Elevated D dimer CTA: Negative for PE Venous Doppler: Negative for DVT Hypertension Stable Continue home medications Hypothyroidism Continue levothyroxine DVT Px: SCDs for now Code Status Full code Disposition Expect to discharge home when medically stable Admission and Anticipated Discharge Date Admission Date: May 26, 2019 Subjective Patient is seen and examined at bedside Chest discomfort resolved Denies any nausea, vomiting, abdominal pain today Offers no other complaints Plan to discharge on clear liquid diet by surgery today Review of Systems Review of Systems: All systems reviewed & are unremarkable except as noted in HPI & below Physical Exam Physical Exam: Physical Exam: Vitals signs as noted above General Appearance:Moderately built and nourished, no apparent distress Head: normocephalic, Atraumatic Eyes: normal inspection, EOMI Neck: supple, Trachea midline Respiratory/Chest: Normal breath sounds, CTA, No accessory muscle use Cardiovascular: S1, S2, No murmur Abdomen/GI:Soft, Non tender, +Colostomy--liquid stool, Bowel sounds present Extremities/Musculoskelatal:normal inspection, no edema Neurologic/Psych:AAOX3, grossly no focal neurological deficits Skin: normal color, warm Results & Data Results & Data ([facility]) Vital Signs (Past 12 Hours) Vital Signs Temp Pulse Pulse Resp BP Pulse Ox 05/27/19 08:31 69 05/27/19 07:21 36.8 C 80 18 147/74 H 94 05/27/19 04:52 36.8 C 88 18 144/88 H 96 Laboratory Results Short CBC 05/26/19 05/27/19 Range/Units 14:25 03:50 WBC 10.34 6.54 (4.8-10.8) K/uL Hgb 12.5 11.2 L (12.0-16.0) g/dL Hct 37.4 34.5 L (37-47) % Plt Count 300 260 (130-400) K/uL BMP 05/26/19 05/27/19 14:25 03:50 Sodium 137 141 Potassium 3.6 4.0 Chloride 107 113 H Carbon Dioxide 26 25 BUN 14 12 Creatinine 0.79 0.72 Glucose 135 H 114 H Calcium 8.2 L 8.4 L Cardiac Enzymes 05/26/19 05/26/19 05/26/19 Range/Units 14:25 16:08 21:49 Total Creatine Kinase 69 (26-192) U/L CK-MB (CK-2) 2.3 (0.5-3.6) ng/ml Troponin I < 0.015 < 0.015 < 0.015 (0-0.045) ng/ml 05/27/19 Range/Units 03:50 Total Creatine Kinase (26-192) U/L CK-MB (CK-2) (0.5-3.6) ng/ml Troponin I < 0.015 (0-0.045) ng/ml Liver Function 05/26/19 Range/Units 14:25 Total Bilirubin 0.8 (0.2-1) mg/dl AST 18 (15-37) U/L ALT 26 (12-78) U/L Alkaline Phosphatase 88 (45-117) U/L Albumin 2.9 L (3.4-5.0) gm/dl
[2019-05-27] MEDS: METOPROLOL TARTRATE 100 MG TAB PO SCH (14:14)
[2019-05-27] MEDS: FAMOTIDINE 40 MG TABLET PO SCH (20:29)
[2019-05-28] MEDS: ACETAMINOPHEN 325 MG TAB PO PRN ×2 (00:28→07:56)
[2019-05-28] MEDS: D5NSS + 20MEQ KCL 20 MEQ/1,000 ML BAG IV SCH (00:29)
[2019-05-28] MEDS: PIPERACILLIN/TAZOBACTAM 3.375 GM in DEXTROSE 5% 100 ML IV SCH ×2 (06:25→13:59)
--- NOTE | 2019-05-28 06:25 | XRay Report ---
XR chest 1V portable CLINICAL HISTORY: crackles COMPARISON STUDY: Chest radiograph and chest CT May 26, 2019. FINDINGS: Lung volumes are normal. Minimal left basilar opacity favors epicardial fat pad and atelect asis. There is no pneumothorax or pleural effusion. Cardiac size is normal. Mediastinal contours are normal. There is no evidence for pulmonary edema. IMPRESSION: No acute cardiopulmonary findings. ACT 112: Negative or not required by law. Electronically signed by: Alan Bravo M.D. 05/28/2019 6:24 AM
[2019-05-28] MEDS ORDERED: LEVOTHYROXINE SODIUM 100 MCG TABLET PO SCH (06:30)
[2019-05-28 06:55] LABS: Hematocrit (blood only) 34.1 % (37-47); Hemoglobin 11.2 g/dL (12.0-16.0); Mean Corpuscular Hemoglobin 29.2 pg (25-34); Mean Corpuscular Hgb Conc 32.8 g/dL (32-36); Mean Platelet Volume 10.3 fL (7.4-10.4); Platelet Count 258 K/uL (130-400); RDW Coefficient of Variation 13.3 % (11.5-14.5); RDW Standard Deviation 43.5 fL (36.4-46.3); Red Blood Count 3.83 M/uL (4.2-5.4); White Blood Count 5.96 K/uL (4.8-10.8)
[2019-05-28 07:34] LABS: BUN Creatinine Ratio 10.1 (10-20); Calcium 8.7 mg/dl (8.5-10.1); Creatinine Clr Calc Pharmacy 57.9 ml/min; Est GFR (African American) 95.3; Est GFR (Non-African American) 82.3; Potassium 3.7 mmol/L (3.5-5.1)
[2019-05-28] MEDS: FAMOTIDINE 40 MG TABLET PO SCH (07:57)
[2019-05-28] MEDS: METOPROLOL TARTRATE 100 MG TAB PO SCH (07:58)
[2019-05-28] MEDS ORDERED: LOSARTAN POTASSIUM 50 MG TAB PO SCH (09:00)
[2019-05-28] MEDS ORDERED: AMLODIPINE BESYLATE 5 MG TAB PO SCH (09:00)
[2019-05-28] MEDS ORDERED: PANTOprazole 40 MG TAB PO SCH (09:00)
--- NOTE | 2019-05-28 10:38 | Surgery Progress Note ---
Date of Service May 28, 2019 Assessment & Plan (1) Perforation of intestine due to diverticulitis of gastrointestinal tract: 83 [address] woman with CT scan showing scattered foci of free air and extensive diverticulosis - most c/w microperforation of bowel. Currently, no abdominal pain/ tenderness, no leukocytosis, no inflammatory change seen on CT. Most likely perforation has sealed and there is currently, no urgent need for surgical intervention. -vitals stable, afebrile - no abdominal pain, ostomy functioning Plan: Okay to advance diet to low fiber for lunch ostomy nurse to change appliance and skin care today If tolerates low fiber for lunch could consider discharge this evening. Will need total course of abx for 10-14 days. Low fiber diet recommended for [address] Mcnair has seen patient, agrees with above. Subjective feeling good today no abdominal pain no nausea or vomiting hungry, tolerated clear liquids no chest pain urinating without difficulty ostomy is functioning, due for change today, concerned her skin may become irr itated if not changed Physical Exam Constitutional: WD/WN, vitals as above no acute distress Respiratory: normal respiratory effort; no respiratory distress Gastrointestinal (Abdomen): Inspection/Auscultation: abdomen normal to inspection; abdomen not distended Percussion/Palpation: abdomen soft; abdomen nontender, no guarding and abdomen not rigid LLQ colostomy present : pink functioning with soft/liquid stool Skin: no rashes, warm and dry Psychiatric: A+Ox3, euthymic affect Results & Data Vital Signs (Past 12 Hours) Vital Signs Temp Pulse Pulse Pulse Resp BP BP 05/28/19 07:52 36.4 C L 67 18 163/82 H 05/28/19 05:41 91 H 05/28/19 04:00 36.5 C 63 18 159/83 H 05/28/19 00:46 152/78 H 05/27/19 22:37 36.4 C L 68 17 153/80 H Pulse Ox 05/28/19 07:52 93 05/28/19 05:41 05/28/19 04:00 94 05/28/19 00:46 94 05/27/19 22:37 94 Laboratory Results 05/28/19 05/28/19 05/27/19 Range/Units 06:32 06:32 17:06 WBC 5.96 (4.8-10.8) K/uL RBC 3.83 L (4.2-5.4) M/uL Hgb 11.2 L (12.0-16.0) g/dL Hct 34.1 L (37-47) % MCV 89.0 (80-100) fL MCH 29.2 (25-34) pg MCHC 32.8 (32-36) g/dL RDW Std Deviation 43.5 (36.4-46.3) fL RDW Coeff of Grecia 13.3 (11.5-14.5) % Plt Count 258 (130-400) K/uL MPV 10.3 (7.4-10.4) fL Sodium 142 (136-145) mmol/L Potassium 3.7 (3.5-5.1) mmol/L Chloride 111 H (98-107) mmol/L Carbon Dioxide 27 (21-32) mmol/L Anion Gap 4.0 (3-11) BUN 7 D (7-18) mg/dl Creatinine 0.66 (0.6-1.2) mg/dl Est Cr Clr Drug Dosing 57.9 ml/min Est GFR ( Amer) 95.3 Est GFR (Non-Af Amer) 82.3 BUN/Creatinine Ratio 10.1 (10-20) Glucose 91 (70-99) mg/dl Calcium 8.7 (8.5-10.1) mg/dl Magnesium 2.0 (1.8-2.4) mg/dl Bld Cult Staph aureus PCR Negative (Negative) Blood Culture MRSA PCR Negative (Negative)
--- NOTE | 2019-05-28 11:35 | Hospitalist Progress Note ---
Date of Service May 28, 2019 Assessment & Plan (1) Pneumoperitoneum: Patient is an 83-year-old female with H/O Diverticulosis, Perforated Colon s/p Sigmoid Resection, Colostomy placement 2019, GERD, Hiatal Hernia, presenting with epigastric pain x 2 days. Pneumoperitoneum Possible Ileus Likely secondary to micro perforation of bowel--extensive diverticulosis H/O perforated colon S/P sigmoid resection and colostomy placement 2018 --CT ABD:Extensive scattered foci of pneumoperitoneum predominantly in the mid to upper abdomen. The lack of oral contrast limits identification of a focal site of bowel discontinuity, however, this finding is consistent with perforated hollow viscus. Extensive small bowel diverticulosis as well as less extensive colonic diverticulosis. This may be a potential etiology. No focal inflammatory change to suggest the site of perforation. Surgical consultation is necessary. Fluid throughout the small bowel may suggest a mild ileus or enteritis. This may be secondarily reactive to the presence of the perforation. Status post sigmoidectomy with a left lower quadrant colostomy. Status post cholecystectomy. --Currently symptoms resolved: Likely perforation has sealed. --Continue IV antibiotics (zosyn)>>Plan to transition to PO Abx upon discharge to complete 10-14 day therapy --Received IV fluids --Appreciate surgery input --Advance to low fiber diet --No plan for any surgical intervention --Needs Ostomy nurse to change appliance --Needs follow up with Surgery upon discharge Positive Blood Culture: 1/2 Blood Cx: Staph Species---Likely Contamination No fever, leukocytosis/SIRS Blood MRSA PCR: negative Already on antibiotics as above Chest Discomfort: Resolved Stated that epigastric region has radiated to substernal chest area Chest discomfort resolved Patient had negative stress test 2 weeks ago at [facility] Troponin : Negative Continue home medications--PPI, H2 dash H/O GERD, Hiatal hernia Continue Famotidine, Protonix Elevated D dimer CTA: Negative for PE Venous Doppler: Negative for DVT Hypertension Stable Continue home medications Hypothyroidism Continue levothyroxine DVT Px: SCDs for now Code Status Full code Disposition Plan to discharge home today if tolerates diet Admission and Anticipated Discharge Date Admission Date: May 26, 2019 Subjective Patient is seen and examined at bedside Doing well today Tolerated liquid diet yesterday Discussed with surgery today No new complaints Denies any Chest pain, SOB, dizziness, nausea, vomiting, abdominal pain Plan to advance to low fiber diet today Review of Systems Review of Systems: All systems reviewed & are unremarkable except as noted in HPI & below Physical Exam Physical Exam: Physical Exam: Vitals signs as noted above General Appearance:Moderately built and nourished, no apparent distress Head: normocephalic, Atraumatic Eyes: normal inspection, EOMI Neck: supple, Trachea midline Respiratory/Chest: Normal breath sounds, CTA, No accessory muscle use Cardiovascular: S1, S2, No murmur Abdomen/GI:Soft, Non tender, +Colostomy with liquid stool in bag, Bowel sounds present Extremities/Musculoskelatal:normal inspection, no edema Neurologic/Psych:AAOX3, grossly no focal neurological deficits Skin: normal color, warm Results & Data Results & Data ([facility]) Vital Signs (Past 12 Hours) Vital Signs Temp Pulse Pulse Resp BP BP Pulse Ox 05/28/19 11:06 36.4 C L 58 L 18 138/78 93 05/28/19 07:52 36.4 C L 67 18 163/82 H 93 05/28/19 05:41 91 H 05/28/19 04:00 36.5 C 63 18 159/83 H 94 05/28/19 00:46 152/78 H 94 Laboratory Results Short CBC 05/28/19 Range/Units 06:32 WBC 5.96 (4.8-10.8) K/uL Hgb 11.2 L (12.0-16.0) g/dL Hct 34.1 L (37-47) % Plt Count 258 (130-400) K/uL BMP 05/28/19 06:32 Sodium 142 Potassium 3.7 Chloride 111 H Carbon Dioxide 27 BUN 7 D Creatinine 0.66 Glucose 91 Calcium 8.7
--- NOTE | 2019-05-28 15:17 | Discharge Summary ---
Date of Service May 28, 2019 Admission HPI Per Admitting Provider 83 year old female with history of Diverticulosis, Perforated Colon s/p Sigmoid Resection, Colostomy placement 2019, GERD, Hiatal Hernia, presenting with epigastric pain x 2 days. 2 weeks ago, patient was admitted to [facility] for evaluation of substernal, epigastric discomfort. Cardiac work up was done including a Stress Test and as per patient's daughter, all the tests were negative. She was feeling better since discharge until yesterday when patient started to have epigastric discomfort again radiating to her chest, left jaw and arm- intermittent, lasting for a minutes, not associated with exertion or eating, relieved by belching. No abdominal pain, nausea/vomiting, fever/chills, shortness of breath. (+) normal colostomy output She came to the ER today in light of persistence of epigastric discomfort. D Dimer: 700s CT chest: no PE but (+) peritoneum Ct abdomen/pelvis: 1. Extensive scattered foci of pneumoperitoneum predominantly in the mid to upper abdomen. The lack of oral contrast limits identification of a focal site of bowel discontinuity, however, this finding is consistent with perforated hollow viscus. Extensive small bowel diverticulosis as well as less extensive colonic diverticulosis. This may be a potential etiology. No focal inflammatory change to suggest the site of perforation. Surgical consultation is necessary 2. Fluid throughout the small bowel may suggest a mild ileus or enteritis. This may be secondarily reactive to the presence of the perforation. 3. Status post sigmoidectomy with a left lower quadrant colostomy. 4. Status post cholecystectomy. She was given Sucralfate, Famotidine, Zosyn. She was also seen by Gen Surg Dr. Amezcua who recommends bowel rest, and IV antibiotics. On exam, patient was seen resting in bed, comfortable, in good spirits, states she feels improved compared to admission. Admission Exam Per Admitting Provider Physical Exam Physical Exam: General- oriented x 3, not in distress, speaks in sentences with no effort or accessory muscle use Head- atraumatic Eyes- PERRL, EOMI, anicteric ENT- oropharynx clear (+) surgical scar, anterior neck Neck- supple, no JVD, no adenopathy, no thyromegaly; carotids +2/2, no bruits appreciated Lungs- clear to auscultation bilaterally, no rales/wheezes Heart- normal rate, regular rhythm; no murmur, no gallop, no rub appreciated Abdomen- normal bowel sounds, nondistended, soft, nontender, no masses or hepatosplenomegaly (+) colostomy LLQ: brown formed stool Extremities- no pretibial edema, no calf tenderness; peripheral pulses intact Neuro- alert, oriented x 3; CN 2-12 grossly intact; motor 5/5 bilaterally;sensation 100% on all extremities; no other gross focal neurologic deficits Skin- warm & dry Principal Diagnosis Pneumoperitoneum Possible Ileus Likely secondary to micro perforation of bowel--extensive diverticulosis Discharge Data Allergies Allergy/AdvReac Type Severity Reaction Status Date / Time codeine Allergy Intermediate GI Verified 05/26/19 15:47 SYMPTOMS Nausea Emesis fentanyl Allergy Unknown vomiting Unverified 05/26/19 15:47 Consultations 05/26/19 17:00 Consult General Surgery Stat 05/26/19 17:44 ED Decision to Admit Stat 05/26/19 19:47 Consult General Surgery Routine 05/26/19 21:38 Consult Health Information Management Routine Procedures Performed --CT ABD:Extensive scattered foci of pneumoperitoneum predominantly in the mid to upper abdomen. The lack of oral contrast limits identification of a focal site of bowel discontinuity, however, this finding is consistent with perforated hollow viscus. Extensive small bowel diverticulosis as well as less extensive colonic diverticulosis. This may be a potential etiology. No focal inflammatory change to suggest the site of perforation. Surgical consultation is necessary. Fluid throughout the small bowel may suggest a mild ileus or enteritis. This may be secondarily reactive to the presence of the perforation. Status post sigmoidectomy with a left lower quadrant colostomy. Status post cholecystectomy. Ordered Studies 05/26/19 15:25 CT angio chest PE protocol Stat 05/26/19 16:16 CT abd pelvis IV con only Stat 05/26/19 19:47 US venous doppler [facility] Stat Hospital Course (1) Pneumoperitoneum: Patient is an 83-year-old female with H/O Diverticulosis, Perforated Colon s/p Sigmoid Resection, Colostomy placement 2018, GERD, Hiatal Hernia, presenting with epigastric pain x 2 days. Pneumoperitoneum Possible Ileus Likely secondary to micro perforation of bowel--extensive diverticulosis H/O perforated colon S/P sigmoid resection and colostomy placement 2018 --CT ABD:Extensive scattered foci of pneumoperitoneum predominantly in the mid to upper abdomen. The lack of oral contrast limits identification of a focal site of bowel discontinuity, however, this finding is consistent with perforated hollow viscus. Extensive small bowel diverticulosis as well as less extensive colonic diverticulosis. This may be a potential etiology. No focal inflammatory change to suggest the site of perforation. Surgical consultation is necessary. Fluid throughout the small bowel may suggest a mild ileus or enteritis. This may be secondarily reactive to the presence of the perforation. Status post sigmoidectomy with a left lower quadrant colostomy. Status post cholecystectomy. --Currently symptoms resolved: Likely perforation has sealed. --Continue IV antibiotics (zosyn)>>Plan to transition to PO Abx upon discharge to complete 10-14 day therapy --Received IV fluids --Appreciate surgery input --Tolerated low fiber diet --No plan for any surgical intervention --Ostomy nurse changed appliance today --Needs follow up with Surgery upon discharge Positive Blood Culture: 03/01 Blood Cx: Staph Species---Likely Contamination No fever, leukocytosis/SIRS Blood MRSA PCR: negative Already on antibiotics as above Chest Discomfort: Resolved Stated that epigastric region has radiated to substernal chest area Chest discomfort resolved Patient had negative stress test 2 weeks ago at [facility] Troponin : Negative Continue home medications--PPI, H2 dash H/O GERD, Hiatal hernia Continue Famotidine, Protonix Elevated D dimer CTA: Negative for PE Venous Doppler: Negative for DVT Hypertension Stable Continue home medications Hypothyroidism Continue levothyroxine DVT Px: SCDs for now Code Status Full code Disposition Plan to discharge home today if tolerates diet Total Time Total Time Spent Total Time Spent (In Minutes): 39 minutes Total Time Includes: Examination of the Patient, Discharge Planning, Medication Reconciliation, Communication With Other Providers and Other Discharge Plan Discharge Items Patient Disposition: Home - Self-Care Reason For Visit: PNEUMOPERITONEUM Discharge Diagnosis: Pneumoperitoneum Perforation of intestine due to diverticulitis Activity: Resume your previous activity Exercise/Sports: Gradually increase as tolerated Non-emergency contact: Primary Care Provider and Surgeon Call non-emergency contact if: you have any medication questions, your symptoms worsen, your pain is not controlled, your pain is worsening, your pain is unusual for you, your pain is concerning for you and you have a fever Follow-up/Referrals: Nahid Nicholas [Primary Care Provider] - Diet: Low Fiber Addtl Attending Provider Instructions: Follow up with your Primary Care Physician Dr.George Nicholas in 1 week Follow up with your Surgeon /Xu as advised by your Surgeon YOUR BLOOD CULTURES ARE PENDING AT THE TIME OF DISCHARGE. PLEASE FOLLOW UP WITH YOUR PHYSICIAN FOR RESULTS. Complete the antibiotic course Augmentin as prescribed Seek immediate medical attention if your symptoms reoccur or worsen Addtl Equipment Validation Specialist Provider Instructions: Low fiber diet for at least 2 weeks. You may then increase fiber in your diet slowly as tolerated. After 4 weeks you should adhere to a diet high in fiber du e to your diverticulosis. Pending Studies at Discharge: Yes Studies:: Final Blood Culture Stand-Alone Forms: My [facility] [place], Smoking Cessation Medications and DC Order Prescriptions: New Lactobacillus acidoph-L.bulgar [Floranex] 1 million cell Tablet 4 tab PO TIDM 15 Days Qty: 60 RF: 0 amoxicillin-pot clavulanate [Augmentin] 875-125 mg tablet 1 tab PO BID Qty: 20 RF: 0 Continued Allergy Pill 1 tab PO DAILY RF: 0 metoprolol tartrate [Lopressor] 100 mg tablet 100 mg PO DAILY RF: 0 famotidine [Pepcid] 40 mg tablet 40 mg PO BID RF: 0 amlodipine [Norvasc] 5 mg tablet 5 mg PO DAILY RF: 0 levothyroxine 100 mcg tablet 100 mcg PO DAILY RF: 0 pantoprazole [Protonix] 40 mg tablet,delayed release (DR/EC) 40 mg PO DAILY RF: 0 losartan [Cozaar] 100 mg tablet 100 mg PO DAILY RF: 0 calcitriol [Rocaltrol] 0.25 mcg capsule 0.25 mcg PO Q OTHER DAY RF: 0 cholecalciferol (vitamin D3) [Vitamin D3] 50 mcg (2,000 unit) Tablet 50 mcg PO DAILY RF: 0 Hair, Skin, Nails with Biotin 7.5-7.5-1,250 mg-unit-mcg Tablet,Chewable 1 tab PO DAILY RF: 0 Discharge Orders: Discharge Order (Routine); Ordered 05/28/19 Ordered By: Joao Andersen/Other Patient Handouts: Diet Low Residue Admission Data Admit Date/Time: 05/26/19 18:58 Attending Provider: Joao Oliver Admit Provider: Panlilio,Jerrod A. Primary Care Provider: Nahid Nicholas Other Providers: Rosario Amezcua ; Jerrod Valdez. Other Interventions: Discharge Summary Assessment (RN) Last Done: 05/28/19 15:21
[2019-05-28] MEDS ORDERED: LACTOBACILLUS ACIDOPHILUS (FLORANEX) TAB PO SCH (17:00)
== END 2019-05-28 18:33 | disposition home or self-care (01) | DRG 394 ==
LOC: ED 15:09 → 2N 18:58 → SUATTDRO 18:58 → 2N 19:20

== ENCOUNTER 2019-06-08 13:35 | Inpatient (IN) ==
[2019-06-08] MEDS ORDERED: MoRPHine SULFATE 2 MG/ML CARP IV STA (13:56)
[2019-06-08] MEDS ORDERED: ONDANSETRON INJ 2 MG/ML 2 ML VIAL IV STA (13:56)
--- NOTE | 2019-06-08 13:57 | Emergency Department Note ---
History of Present Illness General Chief complaint: Shortness of Breath/Dyspnea Stated complaint: SOB, BOWEL ISSUE Time Seen by Provider: 06/08/19 13:43 Source: patient History of Present Illness Provider complaint: Abdominal pain Onset (ago): day(s) (Yesterday evening) Location: chest and abdomen Radiation: other (Into the left chest and shoulder) Severity: moderate Pain Consistency: + constant Maximum Pain Intensity: 9 Quality: + aching Relieved By: + none Associated symptoms: + nausea/vomiting and + shortness of breath (Has difficulty taking deep breaths due to pain); no diaphoresis and no fever/chills This is an 84-year-old female who presents with epigastric abdominal pain rating into her left chest and shoulder. She states it started last night. The pain feels similar to when she had a bowel perforation last month. She had been admitted to [facility] where they did a cardiac work-up and discharged her home. She came here and was subsequently diagnosed with pneumo peritoneum. She was felt to have had a microperforation treated conservatively. She states that she felt better when she was discharged from this hospital but starting yesterday evening she started having the pain again. It is aching. It is worse when she takes deep breaths. It is associated with some shortness of breath but she states this is mostly because she cannot take deep breaths. She has had no fevers, cough, leg swelling or pain, myalgias or vomiting. She has had normal colostomy output. Home Medications Home Medications Medication Instructions Recorded Confirmed Type amlodipine [Norvasc] 5 mg PO QAM 05/26/19 06/08/19 History calcitriol [Rocaltrol] 0.25 mcg PO Q OTHER DAY 05/26/19 06/08/19 History cholecalciferol (vitamin D3) 50 mcg PO QAM 05/26/19 06/08/19 History [Vitamin D3] famotidine [Pepcid] 40 mg PO BID 05/26/19 06/08/19 History levothyroxine 100 mcg PO QAM 05/26/19 06/08/19 History losartan [Cozaar] 100 mg PO QAM 05/26/19 06/08/19 History metoprolol tartrate [Lopressor] 100 mg PO QAM 05/26/19 06/08/19 History pantoprazole [Protonix] 40 mg PO QAM 05/26/19 06/08/19 History Lactobacillus acidoph-L.bulgar 4 tab PO TIDM 15 Days #60 tab 05/28/19 06/08/19 Rx [Floranex] amoxicillin-pot clavulanate 1 tab PO BID #20 tab 05/28/19 06/08/19 Rx [Augmentin] acetaminophen [Tylenol] 325 mg PO QID PRN 06/08/19 06/08/19 History Allergies Allergy/AdvReac Type Severity Reaction Status Date / Time codeine Allergy Intermediate GI Verified 05/26/19 15:47 SYMPTOMS Nausea Emesis fentanyl Allergy Unknown vomiting Unverified 05/26/19 15:47 Past Med/Surg History Medical History Colostomy present Diverticulitis of colon with perforation Surgical History History of cataract surgery Hx of cholecystectomy Social History Preferred Language: Tamazight Communication Ability: Effective Block Piler Required: No Beliefs That Will Affect Care: None Current Living Situation: Alone Feels Safe at Home: Yes Smoking Status: Never smoker Hx Alcohol Use: No Hx Substance Use: No Review of Systems See HPI for pertinent positives & negatives. and A total of 10 systems reviewed and were otherwise negative Physical Exam Vital Signs Vital Signs - 24 hr 06/08/19 13:37 06/08/19 13:58 06/08/19 14:00 Temperature 36.8 C Temperature Source Oral Pulse Rate 100 H 100 H Pulse Rate from SpO2 Sensor 100 H Respiratory Rate 18 22 Respiratory Depth Normal Blood Pressure 150/80 H 142/70 H Blood Pressure Mean 103 80 Pulse Oximetry 96 96 94 Sepsis Recent Fever Within 48 Hours No Sepsis New/Unexplained Change in Mental Status No Sepsis Action Taken by Nursing No Action Required 06/08/19 14:05 06/08/19 14:38 06/08/19 15:00 Temperature Temperature Source Pulse Rate 113 H 112 H 108 H Pulse Rate from SpO2 Sensor 111 H 108 H Respiratory Rate 21 23 20 Respiratory Depth Blood Pressure Blood Pressure Mean Pulse Oximetry 95 95 Sepsis Recent Fever Within 48 Hours Sepsis New/Unexplained Change in Mental Status Sepsis Action Taken by Nursing 06/08/19 15:01 06/08/19 15:02 06/08/19 15:30 Temperature Temperature Source Pulse Rate 104 H 105 H 96 H Pulse Rate from SpO2 Sensor 103 H 104 H 97 H Respiratory Rate 22 20 21 Respiratory Depth Blood Pressure 149/104 H 148/62 H Blood Pressure Mean 133 90 Pulse Oximetry 95 94 95 Sepsis Recent Fever Within 48 Hours Sepsis New/Unexplained Change in Mental Status Sepsis Action Taken by Nursing 06/08/19 16:00 06/08/19 16:44 06/08/19 17:00 Temperature Temperature Source Pulse Rate 101 H 107 H 101 H Pulse Rate from SpO2 Sensor 100 H Respiratory Rate 20 22 21 Respiratory Depth Blood Pressure 131/54 L 183/74 H Blood Pressure Mean 94 91 Pulse Oximetry 93 Sepsis Recent Fever Within 48 Hours Sepsis New/Unexplained Change in Mental Status Sepsis Action Taken by Nursing 06/08/19 17:01 06/08/19 17:53 Temperature Temperature Source Pulse Rate 106 H 113 H Pulse Rate from SpO2 Sensor 111 H Respiratory Rate 22 22 Respiratory Depth Blood Pressure 140/98 157/123 H Blood Pressure Mean 104 132 Pulse Oximetry 95 Sepsis Recent Fever Within 48 Hours Sepsis New/Unexplained Change in Mental Status Sepsis Action Taken by Nursing Constitutional: Vital signs reviewed. Eyes: Pupils are equal round reactive to light. Conjunctiva are noninjected. ENT: Pharynx is clear without erythema or exudate. Mucous membranes are moist. Neck supple without meningeal signs. Respiratory: Clear to auscultation bilaterally. Breath sounds are equal bilaterally. Cardiovascular: Regular rate and rhythm. No rubs or gallops. GI: Soft, nondistended with epigastric tenderness. No guarding. Colostomy left side. Bowel sounds are present. Musculoskeletal: No peripheral edema. No lower extremity tenderness. Integumentary: No cyanosis. or jaundice. Neurological: The patient is awake and alert. No focal deficits. Psychiatric: Normal affect. Not anxious appearing. Course Administered Medications Ioversol (Optiray 320 100ml) 93 ml IV ONCE PRN PRN Reason: Interaction Checking Stop: 06/12/19 16:23 Last Admin: 06/08/19 16:27 Dose: 93 ml Documented by: [id number] Discontinued Medications Morphine Sulfate (Morphine Sulfate) 2 mg IV NOW STA Stop: 06/08/19 13:57 Last Admin: 06/08/19 14:39 Dose: 2 mg Documented by: [id number] Ondansetron HCl (Zofran) 4 mg IV NOW STA Stop: 06/08/19 13:57 Last Admin: 06/08/19 14:39 Dose: 4 mg Documented by: [id number] Ondansetron HCl (Zofran) Confirm Administered Dose 4 mg .ROUTE .STK-MED ONE Stop: 06/08/19 16:42 Last Admin: 06/08/19 16:53 Dose: 4 mg Documented by: [id number] Medical Decision Making Differential Diagnosis Pneumoperitoneum, bowel perforation, diverticulitis, bowel obstruction, peritonitis, cardiac Medical Records Attestation: I reviewed the patient's medical records. I did perform a limited focused review of portions of the patient's old chart on the electronic medical record. The patient was admitted to the hospital Home Medications Current Medication List: was personally reviewed by me Laboratory Data Attestation: I reviewed the patient's lab results. Result diagrams: 06/08/19 14:15 06/08/19 14:15 Lab Results 06/08/19 06/08/19 06/08/19 Range/Units 14:15 14:15 14:15 WBC 12.46 H (4.8-10.8) K/uL RBC 4.32 (4.2-5.4) M/uL Hgb 12.7 (12.0-16.0) g/dL Hct 37.7 (37-47) % MCV 87.3 (80-100) fL MCH 29.4 (25-34) pg MCHC 33.7 (32-36) g/dL RDW Std Deviation 42.9 (36.4-46.3) fL RDW Coeff of Grecia 13.3 (11.5-14.5) % Plt Count 319 (130-400) K/uL MPV 10.1 (7.4-10.4) fL Immature Gran % (Auto) 0.3 % Neut % (Auto) 81.5 % Lymph % (Auto) 10.4 % Drew % (Auto) 7.1 % Eos % (Auto) 0.5 % Baso % (Auto) 0.2 % Immature Gran # (Auto) 0.04 H (0.00-0.02) K/uL Neut # (Auto) 10.16 H (1.4-6.5) K/uL Lymph # (Auto) 1.29 (1.2-3.4) K/uL Drew # (Auto) 0.89 H (0.11-0.59) K/uL Eos # (Auto) 0.06 (0-0.5) K/uL Baso # (Auto) 0.02 (0-0.2) K/uL ESR (0-21) mm/hr PT 10.6 (9.0-12.0) Seconds INR 1.0 (0.9-1.1) APTT 28.5 (21.0-31.0) Seconds PTT Ratio 1.0 Sodium 137 (136-145) mmol/L Potassium 4.1 (3.5-5.1) mmol/L Chloride 106 (98-107) mmol/L Carbon Dioxide 24 (21-32) mmol/L Anion Gap 7.0 (3-11) BUN 11 (7-18) mg/dl Creatinine 0.76 (0.6-1.2) mg/dl Est Cr Clr Drug Dosing Not Reportable Est GFR ( Amer) 84.1 Est GFR (Non-Af Amer) 72.5 BUN/Creatinine Ratio 14.6 (10-20) Glucose 103 H (70-99) mg/dl Calcium 9.2 (8.5-10.1) mg/dl Total Bilirubin 0.6 (0.2-1) mg/dl AST 14 L (15-37) U/L ALT 22 (12-78) U/L Alkaline Phosphatase 78 (45-117) U/L Troponin I < 0.015 (0-0.045) ng/ml C-Reactive Protein (0-0.29) mg/dl Total Protein 7.8 (6.4-8.2) gm/dl Albumin 3.0 L (3.4-5.0) gm/dl Globulin 4.8 H (2.5-4.0) gm/dl Albumin/Globulin Ratio 0.6 L (0.9-2) Lipase 129 (73-393) U/L 06/08/19 06/08/19 Range/Units 14:15 14:15 WBC (4.8-10.8) K/uL RBC (4.2-5.4) M/uL Hgb (12.0-16.0) g/dL Hct (37-47) % MCV (80-100) fL MCH (25-34) pg MCHC (32-36) g/dL RDW Std Deviation (36.4-46.3) fL RDW Coeff of Grecia (11.5-14.5) % Plt Count (130-400) K/uL MPV (7.4-10.4) fL Immature Gran % (Auto) % Neut % (Auto) % Lymph % (Auto) % Drew % (Auto) % Eos % (Auto) % Baso % (Auto) % Immature Gran # (Auto) (0.00-0.02) K/uL Neut # (Auto) (1.4-6.5) K/uL Lymph # (Auto) (1.2-3.4) K/uL Drew # (Auto) (0.11-0.59) K/uL Eos # (Auto) (0-0.5) K/uL Baso # (Auto) (0-0.2) K/uL ESR 59 H (0-21) mm/hr PT (9.0-12.0) Seconds INR (0.9-1.1) APTT (21.0-31.0) Seconds PTT Ratio Sodium (136-145) mmol/L Potassium (3.5-5.1) mmol/L Chloride (98-107) mmol/L Carbon Dioxide (21-32) mmol/L Anion Gap (3-11) BUN (7-18) mg/dl Creatinine (0.6-1.2) mg/dl Est Cr Clr Drug Dosing Est GFR ( Amer) Est GFR (Non-Af Amer) BUN/Creatinine Ratio (10-20) Glucose (70-99) mg/dl Calcium (8.5-10.1) mg/dl Total Bilirubin (0.2-1) mg/dl AST (15-37) U/L ALT (12-78) U/L Alkaline Phosphatase (45-117) U/L Troponin I (0-0.045) ng/ml C-Reactive Protein 0.95 H (0-0.29) mg/dl Total Protein (6.4-8.2) gm/dl Albumin (3.4-5.0) gm/dl Globulin (2.5-4.0) gm/dl Albumin/Globulin Ratio (0.9-2) Lipase (73-393) U/L Imaging Data Radiologist's Impression: CT SCAN OF THE ABDOMEN AND PELVIS WITH IV CONTRAST CLINICAL HISTORY: Generalized abdominal pain. COMPARISON STUDY: Abdominal CT dated 05/18/2019. TECHNIQUE: Following the IV administration of 93 cc of Optiray 320, CT scan of the abdomen and pelvis is performed from the lung bases to the proximal femora. Images are reviewed in the axial, sagittal, and coronal planes. IV contrast was administered without complication. Oral contrast was utilized. The examination is degraded by streak artifact from the right arm which could not be elevated above the abdomen. There is also motion artifact. A dose lowering technique was utilized adhering to the principles of ALARA. CT DOSE: 515.38 mGy.cm FINDINGS: Lung bases: The heart is normal in size. There is a small complex pericardial effusion with mild surrounding inflammation. There is trace left pleural effu martha. Scarring/atelectasis is present at both lung bases. No airspace consolidation is seen typical for pneumonia. A tiny hiatal hernia is noted. Liver: The contrast-enhanced liver is normal in size, contour, and attenuation. There is moderate intrahepatic biliary ductal dilatation. The hepatic veins and portal veins are patent. A 1.5 cm cyst or hemangioma in the right lobe seen on image #76 is unchanged from previous. Gallbladder: Surgically absent. Spleen: Normal in size and attenuation. Pancreas: Moderately atrophic and grossly unremarkable. Adrenal glands: Unremarkable. Kidneys: The contrast enhanced kidneys are atrophic and without hydronephrosis. The kidneys enhance symmetrically. Abdominal vasculature: The abdominal aorta is normal in course and caliber noting moderate atherosclerotic calcification. Bowel: There is postoperative change from sigmoid colon resection with left lower quadrant colostomy and rectal stump formation. No bowel obstruction is seen. Enteric contrast reaches the distal small bowel. There is mild diverticulosis of the remaining colon without CT evidence of acute diverticulitis. There is also diverticulosis of the small bowel and duodenum. The appendix is well-visualized and normal. Peritoneum: There is no intraperitoneal free air or abdominal ascites. A midline surgical scar is noted. Lymphadenopathy: None. Pelvic viscera: The bladder, uterus, and adnexa are normal as visualized. Skeletal structures: The skeletal structures are osteopenic. There is moderate lumbosacral spondylosis. No lytic or blastic lesions are seen. IMPRESSION: 1. Streak and motion compromised examination. 2. There are no acute infectious or inflammatory findings in the abdomen or pelvis. 3. There is a small complex pericardial effusion with mild surrounding inflammation. This could be seen in the setting of hemopericardium or possibly pericarditis. Clinical correlation will be essential. This could be further assessed with echocardiography if clinically warranted. 4. There is postoperative change from sigmoid colon resection and left lower quadrant colostomy. No bowel obstruction is identified. 5. Trace left pleural effusion. 6. Additional findings as above. ACT 112: Negative or not required by law. Electronically signed by: Remigio Lux M.D. 06/08/2019 4:49 PM XR chest 1V portable CLINICAL HISTORY: 84 years-old Female presenting with Chest Pain. TECHNIQUE: Portable upright AP view of the chest was obtained. COMPARISON: 05/28/2019. FINDINGS: Atherosclerosis of the aortic arch. Cardiac silhouette normal in size. Minimal left basilar opacity with blunting of the left costovertebral angle, possibly small left pleural effusion. No pneumothorax. Degenerative changes of the thoracic spine. Upper abdomen normal. IMPRESSION: 1. Suspected small left pleural effusion and minimal left basilar atelectasis. ECG Data Attestation: I personally reviewed and interpreted this ECG as follows: Indication: + abdominal pain and + chest pain Rate (beats per minute): 90 Rhythm: + normal sinus ECG Intervals/blocks: + Right Bundle branch block ECG ST segments: + T-wave inversions (Anterior); no ST elevation Comparison ECG Date: from (05/26/2019) Change: the following changes noted (T wave inversions anteriorly. Right bundle branch block is old) Blood Pressure Blood Pressure Findings: Elevated blood pressure Blood Pressure Disposition: Referred to patients primary care provider MDM Narrative I did evaluate the patient as noted above. The patient is presenting with upper abdominal pain rating into her chest similar to what she had last month when she was admitted to both this hospital as well as [facility]. She states that she had a cardiac stress test in [place] and was told it was negative. The patient recently had a bowel perforation with pneumoperitoneum. She was discharged on antibiotics and stated she felt better but then started having abdominal pain rating into her chest last night. On examination she does have epigastric tenderness. IV access was established. I did treat her with IV morphine and Zofran. I did order and personally review the patient's 12-lead EKG as described above. She has some T wave inversions in the precordial leads and an old right bundle branch block. I did order and personally reviewed the images of the patient's chest x-ray as described above. There is no evidence of pneumonia. I did order and review the patient's blood work as noted in the electronic medical record. Her white blood cell count is over 12,000. ESR is 59. She is not anemic. Electrolytes are unremarkable. Troponin is negative. Lipase is unremarkable. I did order a CT of the abdomen and pelvis. I did review the images myself as well as the radiology report as described above. She does not appear to have pneumoperitoneum. There is no intra- abdominal acute process. She does, however, have a complex small pericardial effusion which may represent pericarditis versus hemopericardium. She has no history of trauma or any recent to develop hemopericardium. She has mild tachycardia but no signs of tamponade. I did discuss the test results with the patient. I did recommend hospitalization for further work-up and evaluation. I did discuss the case with the hospitalist and pillowcase cutter. Impression & Plan Acute pericardial effusion, Left-sided chest pain, Upper abdominal pain, Tachycardia Discharge Plan Visit Data Chief Complaint: Shortness of Breath/Dyspnea Stated Complaint: SOB, BOWEL ISSUE ED Provider: Bowen Arcos Discharge Problem: Acute pericardial effusion, Left-sided chest pain, Upper abdominal pain, Tachycardia Patient Disposition: Being Evaluated by Hospitalist Condition: Good Forms Stand Alone Forms: My [facility] Prescriptions Prescriptions: No Action metoprolol tartrate [Lopressor] 100 mg tablet 100 mg PO QAM RF: 0 famotidine [Pepcid] 40 mg tablet 40 mg PO BID RF: 0 amlodipine [Norvasc] 5 mg tablet 5 mg PO QAM RF: 0 levothyroxine 100 mcg tablet 100 mcg PO QAM RF: 0 pantoprazole [Protonix] 40 mg tablet,delayed release (DR/EC) 40 mg PO QAM RF: 0 losartan [Cozaar] 100 mg tablet 100 mg PO QAM RF: 0 calcitriol [Rocaltrol] 0.25 mcg capsule 0.25 mcg PO Q OTHER DAY RF: 0 cholecalciferol (vitamin D3) [Vitamin D3] 50 mcg (2,000 unit) Tablet 50 mcg PO QAM RF: 0 Lactobacillus acidoph-L.bulgar [Floranex] 1 million cell Tablet 4 tab PO TIDM 15 Days Qty: 60 RF: 0 amoxicillin-pot clavulanate [Augmentin] 875-125 mg tablet 1 tab PO BID Qty: 20 RF: 0 acetaminophen [Tylenol] 325 mg Tablet 325 mg PO QID PRN (Reason: Pain) RF: 0 Referrals Referrals: Nahid Nicholas [Primary Care Provider] -
[2019-06-08 14:26] LABS: Basophils # (auto) 0.02 K/uL (0-0.2); Basophils % (auto) 0.2 %; Eosinophils # (auto) 0.06 K/uL (0-0.5); Eosinophils % (auto) 0.5 %; Hematocrit (blood only) 37.7 % (37-47); Hemoglobin 12.7 g/dL (12.0-16.0); Immature Granulocytes # (auto) 0.04 K/uL (0.00-0.02); Immature Granulocytes % (auto) 0.3 %; Lymphocytes # (auto) 1.29 K/uL (1.2-3.4); Lymphocytes % (auto) 10.4 %; Mean Corpuscular Hemoglobin 29.4 pg (25-34); Mean Corpuscular Hgb Conc 33.7 g/dL (32-36); Mean Corpuscular Volume 87.3 fL (80-100); Mean Platelet Volume 10.1 fL (7.4-10.4); Monocytes # (auto) 0.89 K/uL (0.11-0.59); Monocytes % (auto) 7.1 %; Neutrophils # (auto) 10.16 K/uL (1.4-6.5); Neutrophils % (auto) 81.5 %; Platelet Count 319 K/uL (130-400); RDW Coefficient of Variation 13.3 % (11.5-14.5); RDW Standard Deviation 42.9 fL (36.4-46.3); Red Blood Count 4.32 M/uL (4.2-5.4); White Blood Count 12.46 K/uL (4.8-10.8)
[2019-06-08 14:38] LABS: Partial Thromboplastin Time 28.5 Seconds (21.0-31.0); Prothrombin Time 10.6 Seconds (9.0-12.0)
--- NOTE | 2019-06-08 14:54 | XRay Report ---
XR chest 1V portable CLINICAL HISTORY: 84 years-old Female presenting with Chest Pain. TECHNIQUE: Portable upright AP view of the chest was obtained. COMPARISON: 05/28/2019. FINDINGS: Atherosclerosis of the aortic arch. Cardiac silhouette normal in size. Minimal left basilar opacity w ith blunting of the left costovertebral angle, possibly small left pleural effusion. No pneumothorax. Degenerative changes of the thoracic spine. Upper abdomen normal. IMPRESSION: 1. Suspected small left pleural effusion and minimal left basilar atelectasis. ACT 112: Negative or not required by law. Electronically signed by: Onur Truong M.D. 06/08/2019 2:53 PM
[2019-06-08 15:07] LABS: Alanine Aminotransferase 22 U/L (12-78); Albumin Globulin Ratio 0.6 (0.9-2); Alkaline Phosphatase 78 U/L (45-117); BUN Creatinine Ratio 14.6 (10-20); Bilirubin,Total 0.6 mg/dl (0.2-1); Blood Urea Nitrogen 11 mg/dl (7-18); Calcium 9.2 mg/dl (8.5-10.1); Carbon Dioxide 24 mmol/L (21-32); Chloride 106 mmol/L (98-107); Est GFR (African American) 84.1; Est GFR (Non-African American) 72.5; Globulin 4.8 gm/dl (2.5-4.0); Glucose 103 mg/dl (70-99); Lipase 129 U/L (73-393); Total Protein 7.8 gm/dl (6.4-8.2); Troponin I < 0.015 ng/ml (0-0.045)
[2019-06-08 15:16] LABS: Potassium 4.1 mmol/L (3.5-5.1); Sodium 137 mmol/L (136-145)
[2019-06-08 15:19] LABS: Aspartate Aminotransferase 14 U/L (15-37)
--- NOTE | 2019-06-08 15:55 | Electrocardiogram Report ---
Test Reason : Blood Pressure : / mmHG Vent. Rate : 090 BPM Atrial Rate : 090 BPM P-R Int : 188 ms QRS Dur : 130 ms QT Int : 370 ms P-R-T Axes : 049 017 001 degrees QTc Int : 452 ms Normal sinus rhythm Right bundle branch block T wave abnormality, consider inferior ischemia Abnormal ECG When compared with ECG of 26-MAY-2019 16:12, Inverted T waves have replaced nonspecific T wave abnormality in Inferior leads T wave inversion now evident in Anterior leads Confirmed by Олег Buck ([id number]) on 06/08/2019 3:55:22 PM Referred By: Confirmed By:Олег Buck
[2019-06-08] MEDS ORDERED: IOVERSOL 100ml IV PRN (16:24)
[2019-06-08] MEDS ORDERED: ONDANSETRON INJ 2 MG/ML 2 ML VIAL ONE (16:41)
--- NOTE | 2019-06-08 16:51 | CT Scan Report ---
CT SCAN OF THE ABDOMEN AND PELVIS WITH IV CONTRAST CLINICAL HISTORY: Generalized abdominal pain. COMPARISON STUDY: Abdominal CT dated 05/18/2019. TECHNIQUE: Following the IV administration of 93 cc of Optiray 320, CT scan of the abdomen and pelvi s is performed from the lung bases to the proximal femora. Images are reviewed in the axial, sagittal , and coronal planes. IV contrast was administered without complication. Oral contrast was utilized. The examination is degraded by streak artifact from the right arm which could not be elevated above t he abdomen. There is also motion artifact. A dose lowering technique was utilized adhering to the jaz Suh. CT DOSE: 515.38 mGy.cm FINDINGS: Lung bases: The heart is normal in size. There is a small complex pericardial effusion with mild surr ounding inflammation. There is trace left pleural effusion. Scarring/atelectasis is present at both l yaniv bases. No airspace consolidation is seen typical for pneumonia. A tiny hiatal hernia is noted. Liver: The contrast-enhanced liver is normal in size, contour, and attenuation. There is moderate int rahepatic biliary ductal dilatation. The hepatic veins and portal veins are patent. A 1.5 cm cyst or hemangioma in the right lobe seen on image #76 is unchanged from previous. Gallbladder: Surgically absent. Spleen: Normal in size and attenuation. Pancreas: Moderately atrophic and grossly unremarkable. Adrenal glands: Unremarkable. Kidneys: The contrast enhanced kidneys are atrophic and without hydronephrosis. The kidneys enhance s ymmetrically. Abdominal vasculature: The abdominal aorta is normal in course and caliber noting moderate atheroscle rotic calcification. Bowel: There is postoperative change from sigmoid colon resection with left lower quadrant colostomy and rectal stump formation. No bowel obstruction is seen. Enteric contrast reaches the distal small b owel. There is mild diverticulosis of the remaining colon without CT evidence of acute diverticulitis . There is also diverticulosis of the small bowel and duodenum. The appendix is well-visualized and normal. Peritoneum: There is no intraperitoneal free air or abdominal ascites. A midline surgical scar is not ed. Lymphadenopathy: None. Pelvic viscera: The bladder, uterus, and adnexa are normal as visualized. Skeletal structures: The skeletal structures are osteopenic. There is moderate lumbosacral spondylosi s. No lytic or blastic lesions are seen. IMPRESSION: 1. Streak and motion compromised examination. 2. There are no acute infectious or inflammatory findings in the abdomen or pelvis. 3. There is a small complex pericardial effusion with mild surrounding inflammation. This could be se en in the setting of hemopericardium or possibly pericarditis. Clinical correlation will be essential . This could be further assessed with echocardiography if clinically warranted. 4. There is postoperative change from sigmoid colon resection and left lower quadrant colostomy. No b owel obstruction is identified. 5. Trace left pleural effusion. 6. Additional findings as above. ACT 112: Negative or not required by law. Electronically signed by: Remigio Lux M.D. 06/08/2019 4:49 PM
--- NOTE | 2019-06-08 18:26 | History & Physical Report ---
Date of Service June 08, 2019 Assessment & Plan (1) Chest pain: (2) Pericardial effusion: Possible Pericarditis Pt is 84 y/o F with PMH diverticulosis, perforated colon s/p sigmoid resection and colostomy in 2019, hiatal hernia, HTN, hypothyroidism, GERD presented to ER with c/o left sided chest pain described as sharp and worse with inspiration and movement and is with associated SOB x 1 day. States feels more comfortable if sitting in her recliner In ER afebrile, P: 100, R: 18, BP: 150/80, 96% RA. WBC: 12, H/H: 12.7/37, normal coags, negative initial troponin, ESR: 59, CRP: 0.95 CT ABD/PELVIS: There is a small complex pericardial effusion with mild surrounding inflammation -In ER given morphine with some relief of discomfort -trend troponin -Resting echo to further assess pericardial effusion -Morphine prn pain -Cardiology consult, Spoke with Dr Lozada, will start colchicine tonight -CBC, BMP (3) Pneumoperitoneum: Recent pneumoperitoneum Pt with hospital admission 05/26/19-05/28/19 at [facility] pneumoperitoneum thought secondary to diverticulosis. Treated conservatively and symptoms resolved and discharged on 10 day course of Augmentin -No abdominal pain, N/V, no increased stool (4) Diverticulosis: H/O perforation s/p resection and colostomy in 2019 (5) HTN (hypertension): -Continue amlodipine, losartan, metoprolol (pt currently on metoprolol tartrate daily and PCP has recommended changing to succinate however pt has not started yet as she is finishing her current tartrate bottle) (6) GERD (gastroesophageal reflux disease): -Continue PPI, H2 dash (7) Hypothyroidism: -Levothyroxine DVT Prophylaxis -SCDs Full Code as per discussion with pt Follows with Dr Nicholas in [place] for routine care Pt was seen and care coordinated with Dr Guerrero. See addendum History of Present Illness Chief Complaint: CP Primary Care Provider: Nahid Nicholas Pt is 84 y/o F with PMH diverticulosis, perforated colon s/p sigmoid resection and colostomy in 2019, hiatal hernia, HTN, hypothyroidism, GERD presented to ER with c/o CP x 1 day. Pt states yesterday started with left sided chest pain described as sharp and worse with inspiration and movement and is with associated SOB. States feels more comfortable if sitting in her recliner. Denies recent injury or trauma, fever/chills, diaphoresis, N/V/D/C, FRANCES, dizziness, syncope, vision changes, neck pain, orthopnea, palpitations, cough, sore throat, choking, otalgia, rhinorrhea, abdominal pain, paresthesias, weakness, extremity weakness, extremity edema, rashes, urinary symptoms. Hx CP earlier in 04/2019 and pt states was seen at [facility] and she reports had negative stress test. Pt states seen Dr Bob - Cardiology in [place] in the past. Pt with hospital admission 05/26/19-05/28/19 at [facility] for epigastric pain radiating to chest and CT scan was found to have pneumoperitoneum predominantly in the mid to upper abdomen, consistent with perforated hollow viscus, thought secondary to diverticulosis. Pt had improvement of symptoms with conservative treatment and thought likely perforation has sealed. There was no evidence for PE at that time. Allergies Allergy/AdvReac Type Severity Reaction Status Date / Time codeine Allergy Intermediate GI Verified 05/26/19 15:47 SYMPTOMS Nausea Emesis fentanyl Allergy Unknown vomiting Unverified 05/26/19 15:47 Home Medications Home Medications Medication Instructions Recorded Confirmed Type amlodipine [Norvasc] 5 mg PO QAM 05/26/19 06/08/19 History calcitriol [Rocaltrol] 0.25 mcg PO Q OTHER DAY 05/26/19 06/08/19 History cholecalciferol (vitamin D3) 2,000 unit PO QAM 05/26/19 06/08/19 History [Vitamin D3] famotidine [Pepcid] 40 mg PO BID 05/26/19 06/08/19 History levothyroxine 100 mcg PO QAM 05/26/19 06/08/19 History losartan [Cozaar] 100 mg PO QAM 05/26/19 06/08/19 History metoprolol tartrate [Lopressor] 100 mg PO QAM 05/26/19 06/08/19 History pantoprazole [Protonix] 40 mg PO QAM 05/26/19 06/08/19 History Lactobacillus acidoph-L.bulgar 4 tab PO TIDM 15 Days #60 tab 05/28/19 06/08/19 Rx [Floranex] amoxicillin-pot clavulanate 1 tab PO BID #20 tab 05/28/19 06/08/19 Rx [Augmentin] acetaminophen [Tylenol] 325 mg PO QID PRN 06/08/19 06/08/19 History Past Med/Surg History Medical History Colostomy present Diverticulitis of colon with perforation Diverticulosis GERD (gastroesophageal reflux disease) Hiatal hernia HTN (hypertension) (Chronic) Hypothyroidism Surgical History History of cataract surgery History of colostomy Hx of cholecystectomy Family History Sister Breast cancer Coronary heart disease Brother Coronary heart disease Other Hypertension Social History Preferred Language: Czech Communication Ability: Effective Interventional Radiology Technologist Required: No Beliefs That Will Affect Care: None Current Living Situation: Alone Feels Safe at Home: Yes Smoking Status: Never smoker Hx Alcohol Use: No Hx Substance Use: No Review of Systems 2 Review of Systems: All systems reviewed & are unremarkable except as noted in HPI & below Physical Exam Physical Exam: General: no distress, WDWN Head: normocephalic, atraumatic Eyes: PERRL, EOM's intact, conjunctiva non-injected, anicteric ENT: normal inspection external ears, nose, mucous membranes moist Neck: supple, trachea midline, non-tender Lungs: clear, no respiratory distress, no wheezing/rhonchi/rales CV: regular rhythm, rate 108, no murmur, no pretibial edema; chest wall without tenderness to palpation Abd: normal BS, soft, +ostomy to left abdomen with soft brown stool in bag, abdomen non-tender Ext: no cyanosis, no calf tenderness Neuro: A&O x 3, no focal deficits noted, normal affect Skin: warm, dry Results & Data Results & Data ([facility]) Vital Signs (Past 12 Hours) Vital Signs Temp Pulse Resp BP Pulse Ox 06/08/19 17:53 113 H 22 157/123 H 95 06/08/19 17:01 106 H 22 140/98 06/08/19 17:00 101 H 21 06/08/19 16:44 107 H 22 183/74 H 06/08/19 16:00 101 H 20 131/54 L 93 06/08/19 15:30 96 H 21 148/62 H 95 06/08/19 15:02 105 H 20 94 06/08/19 15:01 104 H 22 149/104 H 95 06/08/19 15:00 108 H 20 95 06/08/19 14:38 112 H 23 06/08/19 14:05 113 H 21 95 06/08/19 14:00 100 H 22 142/70 H 94 06/08/19 13:58 96 06/08/19 13:37 36.8 C 100 H 18 150/80 H 96 Laboratory Results Short CBC 06/08/19 Range/Units 14:15 WBC 12.46 H (4.8-10.8) K/uL Hgb 12.7 (12.0-16.0) g/dL Hct 37.7 (37-47) % Plt Count 319 (130-400) K/uL BMP 06/08/19 14:15 Sodium 137 Potassium 4.1 Chloride 106 Carbon Dioxide 24 BUN 11 Creatinine 0.76 Glucose 103 H Calcium 9.2 Cardiac Enzymes 06/08/19 Range/Units 14:15 Troponin I < 0.015 (0-0.045) ng/ml Liver Function 06/08/19 Range/Units 14:15 Total Bilirubin 0.6 (0.2-1) mg/dl AST 14 L (15-37) U/L ALT 22 (12-78) U/L Alkaline Phosphatase 78 (45-117) U/L Albumin 3.0 L (3.4-5.0) gm/dl Diagnostic Findings CXR: IMPRESSION: 1. Suspected small left pleural effusion and minimal left basilar atelectasis. CT ABD/PELVIS: IMPRESSION: 1. Streak and motion compromised examination. 2. There are no acute infectious or inflammatory findings in the abdomen or pelvis. 3. There is a small complex pericardial effusion with mild surrounding inflammation. This could be seen in the setting of hemopericardium or possibly pericarditis. Clinical correlation will be essential. This could be further assessed with echocardiography if clinically warranted. 4. There is postoperative change from sigmoid colon resection and left lower quadrant colostomy. No bowel obstruction is identified. 5. Trace left pleural effusion. 6. Additional findings as above. ECG Rate (beats per minute): 90 Rhythm: sinus rhythm Findings: + RBBB and + T-wave inversion Code Status & VTE Plan VTE Prophylaxis Plan VTE Prophylaxis will be ordered: Yes Supervising Physician Co-Signing Physician Notes I, Dr. Prasanna Guerrero, have seen and examined the patient with physician floor covering printer assistant and would like to comment that When seen in the ED, On Physical exam: General: no acute distress, speaking in full sentences Chest: no tenderness on palpation of chest Lungs: clear to auscultation Heart: regular rate Abdomen: soft, nontender, ostomy bag with fecal material on left lower quadrant Extremities: ambulatory CHEST PAIN POSSIBLE PERICARDITIS HYPERTENSION GERD (Gastroesophageal reflux disease) Plan -this is a patient with recent stress test at [facility] and follows with Dr. Dutch Bob who is copyman [facility] -patient also gastrointestinal problems in the past and continues to have ostomy bag -patient presents to ED at [facility] on 06/08/2019 with chest pain with 1 day of exacerbation but is vague about when initial chest pains started in her reported history. -Initial troponin negative, ED provider ordered CT abdomen and radiologist report concerning of small complex pericardial effusion with mild surrounding inflammation -will empirically treat with analgesics such as colchicine as per discussion [facility] cardiology Dr. Lozada while awaiting resting echocardiogram -continue to trend troponins -continue home cardiac medications of metoprolol tartrate 100 mg daily and losartan 100 mg daily and amlodipine 5 mg daily -no acute process noted in the abdomen, continue care of ostomy bag -continue home dose pantoprazole and famotidine -continue home dose medication of levothyroxine 100 mcg for thyroid -Code Status is Full Code -agree with other assessment and plans for other health issues as described by physician floor covering printer assistant My colleague Dr. Farah will be the hospitalist taking care of the patient starting on 06/09/2019
[2019-06-08] MEDS ORDERED: MoRPHine SULFATE 2 MG/ML CARP IV PRN (21:21)
[2019-06-08] MEDS: COLCHICINE 0.6 MG TAB PO SCH (22:06)
[2019-06-08] MEDS: FAMOTIDINE 40 MG TABLET PO SCH (22:06)
[2019-06-08] MEDS: ACETAMINOPHEN 325 MG TAB PO PRN (22:07)
[2019-06-08] MEDS ORDERED: METOPROLOL TARTRATE 25 MG TAB PO STA (22:07)
[2019-06-09] MEDS: ACETAMINOPHEN 325 MG TAB PO PRN ×2 (03:46→15:09)
[2019-06-09] MEDS: LEVOTHYROXINE SODIUM 100 MCG TABLET PO SCH (03:47)
[2019-06-09 05:04] LABS: Hematocrit (blood only) 34.5 % (37-47); Hemoglobin 11.6 g/dL (12.0-16.0); Mean Corpuscular Hemoglobin 29.5 pg (25-34); Mean Corpuscular Hgb Conc 33.6 g/dL (32-36); Mean Corpuscular Volume 87.8 fL (80-100); Mean Platelet Volume 10.1 fL (7.4-10.4); Platelet Count 287 K/uL (130-400); RDW Coefficient of Variation 13.5 % (11.5-14.5); RDW Standard Deviation 43.7 fL (36.4-46.3); Red Blood Count 3.93 M/uL (4.2-5.4); White Blood Count 8.91 K/uL (4.8-10.8)
[2019-06-09 05:26] LABS: BUN Creatinine Ratio 15.2 (10-20); Calcium 9.1 mg/dl (8.5-10.1); Creatinine Clr Calc Pharmacy 47.8 ml/min; Est GFR (African American) 81.5; Est GFR (Non-African American) 70.3; Potassium 3.9 mmol/L (3.5-5.1)
[2019-06-09 05:36] LABS: Thyroid Stimulating Hormone 2.01 uIu/ml (0.300-4.500)
[2019-06-09] MEDS ORDERED: PERFLUTREN LIPID MICROSPHERE (DEFINITY) IV ONE (08:01)
[2019-06-09] MEDS: LACTOBACILLUS ACIDOPHILUS (FLORANEX) TAB PO SCH ×3 (08:46→16:46)
[2019-06-09] MEDS: COLCHICINE 0.6 MG TAB PO SCH ×2 (08:46→20:02)
[2019-06-09] MEDS: METOPROLOL TARTRATE 100 MG TAB PO SCH (08:47)
[2019-06-09] MEDS: AMLODIPINE BESYLATE 5 MG TAB PO SCH (08:47)
[2019-06-09] MEDS: FAMOTIDINE 40 MG TABLET PO SCH ×2 (08:47→20:02)
[2019-06-09] MEDS: LOSARTAN POTASSIUM 50 MG TAB PO SCH (08:47)
[2019-06-09] MEDS: PANTOprazole 40 MG TAB PO SCH (08:47)
[2019-06-09] MEDS: CHOLECALCIFEROL 1,000 UNITS 25 MCG TAB PO SCH (08:48)
[2019-06-09] MEDS ORDERED: CALCITRIOL 0.25 MCG CAPSULE PO SCH (09:00)
--- NOTE | 2019-06-09 09:21 | Cardiology Consultation ---
Date of Consultation June 09, 2019 Assessment & Plan (1) Pericardial effusion: (2) Chest pain: (3) Diverticulosis: I will review the echocardiogram once the study has been completed. I would continue the colchicine. I plan no additional cardiac testing at this time and from my standpoint the patient can eat. History of Present Illness Attending Physician: Narda Farah MD History of Present Illness This is an 84-year-old female who has received most of her health care through [facility]. Approximately a year ago she had a perforated divert iculum and had emergency surgery at [facility] and was given a colostomy. More recently the patient describes a microperforation that did not require surgery and healed on its own. She also was having some upper epigastric discomfort and approximately a month ago she had a cardiac work-up at [facility] including a stress test which she states was negative. She presented to the hospital with left upper quadrant left lower chest discomfort which is pleuritic in nature. She had a CT of the abdomen completed that showed no pneumo peritoneum but a small pericardial effusion was noted. She does have mildly elevated sed rate and CRP. Cardiac enzymes are negative. Echocardiogram is pending. She is currently comfortable and sitting in a chair. She was started on colchicine last night. Allergies Allergy/AdvReac Type Severity Reaction Status Date / Time codeine Allergy Intermediate GI Verified 05/26/19 15:47 SYMPTOMS Nausea Emesis fentanyl Allergy Unknown vomiting Unverified 05/26/19 15:47 Home Medications Home Medications Medication Instructions Recorded Confirmed Type amlodipine [Norvasc] 5 mg PO QAM 05/26/19 06/08/19 History calcitriol [Rocaltrol] 0.25 mcg PO Q OTHER DAY 05/26/19 06/08/19 History cholecalciferol (vitamin D3) 2,000 unit PO QAM 05/26/19 06/08/19 History [Vitamin D3] famotidine [Pepcid] 40 mg PO BID 05/26/19 06/08/19 History levothyroxine 100 mcg PO QAM 05/26/19 06/08/19 History losartan [Cozaar] 100 mg PO QAM 05/26/19 06/08/19 History metoprolol tartrate [Lopressor] 100 mg PO QAM 05/26/19 06/08/19 History pantoprazole [Protonix] 40 mg PO QAM 05/26/19 06/08/19 History Lactobacillus acidoph-L.bulgar 4 tab PO TIDM 15 Days #60 tab 05/28/19 06/08/19 Rx [Floranex] amoxicillin-pot clavulanate 1 tab PO BID #20 tab 05/28/19 06/08/19 Rx [Augmentin] acetaminophen [Tylenol] 325 mg PO QID PRN 06/08/19 06/08/19 History Patient History Medical History Colostomy present Diverticulitis of colon with perforation Diverticulosis GERD (gastroesophageal reflux disease) Hiatal hernia HTN (hypertension) (Chronic) Hypothyroidism Surgical History History of cataract surgery History of colostomy Hx of cholecystectomy Family History Sister Breast cancer Coronary heart disease Brother Coronary heart disease Other Hypertension Social History Preferred Language: [place] Communication Ability: Effective Wildlife Manager Required: No Beliefs That Will Affect Care: None Current Living Situation: Alone Other Information That Helps Us Care for You: No Feels Safe at Home: Yes Safety Concerns: Feels Safe At This Time Smoking Status: Never smoker Hx Alcohol Use: No Hx Substance Use: No Review of Systems Review of Systems: All systems reviewed & are unremarkable except as noted in HPI & below Nothing additional to add. Physical Exam Physical Exam: General: no acute distress and stated age Head: normocephalic, no masses, lesions, tenderness or abnormalities Eyes: conjunctiva are pink and non-injected, sclera clear Neck: supple, no adenopathy, no bruits, normal jugular venous pulse, no hepatojugular reflux Chest: normal shape and normal respiratory effort Lungs: clear to auscultation and percussion Cardiac Exam: - regular rate & rhythm, no murmurs gallops or rubs - normal S1, normal S2 Pulses: 2(+) throughout Abdomen: abdomen soft, non-tender, no abnormal masses and no hepatosplenomegaly Musculoskeletal: no gait disturbance, no joint inflammation, no deforming arthritis Extremities: no edema and no cyanosis Neuro: grossly normal exam Results & Data ([place]) Vital Signs (Past 12 Hours) Vital Signs Temp Pulse Pulse Resp BP BP BP 06/09/19 07:21 36.7 C 80 20 122/54 L 06/09/19 03:46 36.6 C 86 16 108/47 L 06/09/19 00:10 86 18 06/09/19 00:00 73 29 H 06/08/19 23:54 36.9 C 78 20 122/52 L 06/08/19 21:31 115 H 18 150/61 H Pulse Ox 06/09/19 07:21 92 06/09/19 03:46 92 06/09/19 00:10 06/09/19 00:00 06/08/19 23:54 06/08/19 21:31 92 Laboratory Results Laboratory Results - last 24 hr 06/08/19 06/08/19 06/08/19 14:15 14:15 14:15 WBC 12.46 H RBC 4.32 Hgb 12.7 Hct 37.7 MCV 87.3 MCH 29.4 MCHC 33.7 RDW Std Deviation 42.9 RDW Coeff of [place] 13.3 Plt Count 319 MPV 10.1 Immature Gran % (Auto) 0.3 Neut % (Auto) 81.5 Lymph % (Auto) 10.4 [place] % (Auto) 7.1 Eos % (Auto) 0.5 Baso % (Auto) 0.2 Immature Gran # (Auto) 0.04 H Neut # (Auto) 10.16 H Lymph # (Auto) 1.29 [place] # (Auto) 0.89 H Eos # (Auto) 0.06 Baso # (Auto) 0.02 ESR PT 10.6 INR 1.0 APTT 28.5 PTT Ratio 1.0 Sodium 137 Potassium 4.1 Chloride 106 Carbon Dioxide 24 Anion Gap 7.0 BUN 11 Creatinine 0.76 Est Cr Clr Drug Dosing Not Reportable Est GFR ( Amer) 84.1 Est GFR (Non-Af Amer) 72.5 BUN/Creatinine Ratio 14.6 Glucose 103 H Calcium 9.2 Total Bilirubin 0.6 AST 14 L ALT 22 Alkaline Phosphatase 78 Troponin I < 0.015 C-Reactive Protein Total Protein 7.8 Albumin 3.0 L Globulin 4.8 H Albumin/Globulin Ratio 0.6 L Lipase 129 TSH Nasal Screen MRSA (PCR) 04/12/1706/08/19 06/08/19 14:15 14:15 21:36 WBC RBC Hgb Hct MCV MCH MCHC RDW Std Deviation RDW Coeff of [place] Plt Count MPV Immature Gran % (Auto) Neut % (Auto) Lymph % (Auto) [place] % (Auto) Eos % (Auto) Baso % (Auto) Immature Gran # (Auto) Neut # (Auto) Lymph # (Auto) [place] # (Auto) Eos # (Auto) Baso # (Auto) ESR 59 H PT INR APTT PTT Ratio Sodium Potassium Chloride Carbon Dioxide Anion Gap BUN Creatinine Est Cr Clr Drug Dosing Est GFR ( Amer) Est GFR (Non-Af Amer) BUN/Creatinine Ratio Glucose Calcium Total Bilirubin AST ALT Alkaline Phosphatase Troponin I < 0.015 C-Reactive Protein 0.95 H Total Protein Albumin Globulin Albumin/Globulin Ratio Lipase TSH Nasal Screen MRSA (PCR) 06/08/19 06/09/19 06/09/19 22:00 04:37 04:37 WBC 8.91 RBC 3.93 L Hgb 11.6 L Hct 34.5 L MCV 87.8 MCH 29.5 MCHC 33.6 RDW Std Deviation 43.7 RDW Coeff of [place] 13.5 Plt Count 287 MPV 10.1 Immature Gran % (Auto) Neut % (Auto) Lymph % (Auto) [place] % (Auto) Eos % (Auto) Baso % (Auto) Immature Gran # (Auto) Neut # (Auto) Lymph # (Auto) [place] # (Auto) Eos # (Auto) Baso # (Auto) ESR PT INR APTT PTT Ratio Sodium 137 Potassium 3.9 Chloride 107 Carbon Dioxide 25 Anion Gap 5.0 BUN 12 Creatinine 0.78 Est Cr Clr Drug Dosing 47.8 Est GFR ( Amer) 81.5 Est GFR (Non-Af Amer) 70.3 BUN/Creatinine Ratio 15.2 Glucose 105 H Calcium 9.1 Total Bilirubin AST ALT Alkaline Phosphatase Troponin I C-Reactive Protein Total Protein Albumin Globulin Albumin/Globulin Ratio Lipase TSH 2.010 Nasal Screen MRSA (PCR) Negative Medications Administered Current Inpatient Medications Acetaminophen (Tylenol) 650 mg PO Q4H PRN PRN Reason: Pain or Fever Stop: 07/08/19 21:20 Last Admin: 06/09/19 03:46 Dose: 650 mg Documented by: Amlodipine Besylate (Norvasc) 5 mg PO QAM [facility] Stop: 07/09/19 08:59 Last Admin: 06/09/19 08:47 Dose: 5 mg Documented by: Calcitriol (Rocaltrol) 0.25 mcg PO Q48H [facility] Stop: 07/09/19 08:59 Last Admin: 06/09/19 08:48 Dose: 0.25 mcg Documented by: Colchicine (Colcrys) 0.6 mg PO BID [facility] Stop: 07/08/19 21:20 Last Admin: 06/09/19 08:46 Dose: 0.6 mg Documented by: Famotidine (Pepcid) 40 mg PO BID [facility] Stop: 07/08/19 21:20 Last Admin: 06/09/19 08:47 Dose: 40 mg Documented by: Lactobacillus Acidophilus (Floranex) 4 tab PO TIDM [facility] Stop: 07/09/19 07:59 Last Admin: 06/09/19 08:46 Dose: 4 tab Documented by: Levothyroxine Sodium (Synthroid) 100 mcg PO DAILYBB [facility] Stop: 07/09/19 06:29 Last Admin: 06/09/19 03:47 Dose: 100 mcg Documented by: Losartan [facility]) [facility] Stop: 07/09/19 08:59 Last Admin: 06/09/19 08:47 Dose: 100 mg Documented by: Metoprolol Tartrate (Lopressor) [facility] Stop: 07/09/19 08:59 Last Admin: 06/09/19 08:47 Dose: 100 mg Documented by: Morphine Sulfate (Morphine Sulfate) 2 mg IV Q4H PRN PRN Reason: Severe Pain Stop: 06/22/19 21:20 Pantoprazole Sodium (Protonix) [facility] Stop: 07/09/19 08:59 Last Admin: 06/09/19 08:47 Dose: 40 mg Documented by: Vitamin D (Vitamin D3) 2,000 units [facility] Stop: 07/09/19 08:59 Last Admin: 06/09/19 08:48 Dose: 2,000 units Documented by:
--- NOTE | 2019-06-09 11:47 | Hospitalist Progress Note ---
Date of Service June 09, 2019 Assessment & Plan (1) Chest pain: (2) Pericardial effusion: Present on admission with chest pain worsening with deep breathing and associated with SOB CT abd/pelvis showed small complex pericardial effusion with mild surrounding inflammation. CXR showed suspected small left pleural effusion and minimal left basilar atelectasis. Had a negative stress test done in April in [place] with Dr. Bob Troponin x3 negative Continue metoprolol ECHO pending Cardiology on board recommended to continue Colchicine No additional cardiac testing at this time as per cardiology Continue monitor (3) Pneumoperitoneum: Recent pneumoperitoneum Pt with hospital admission 05/26/19-05/28/19 at [facility] pneumoperitoneum thought secondary to diverticulosis. Treated conservatively and symptoms resolved and discharged on 10 day course of Augmentin No abdominal pain, N/V, no increased stool Stable (4) Diverticulosis: H/O perforation s/p resection and colostomy in 2019 (5) HTN (hypertension): Continue amlodipine, losartan, metoprolol (pt currently on metoprolol tartrate daily and PCP has recommended changing to succinate however pt has not started yet as she is finishing her current tartrate bottle) Stable (6) GERD (gastroesophageal reflux disease): Continue PPI, H2 dash (7) Hypothyroidism: Continue Levothyroxine DVT Prophylaxis On SCDs CODE Status Full code Admission and Anticipated Discharge Date Admission Date: June 08, 2019 Subjective Pt was seen and examined Sitting in bed with no distress Pt said that her chest pain slightly improves She said that it seems to be excruciating when she takes a deep breath She said that she is a little tender when i pushed around the left chest above her breast area She denies any recent fall, trauma to the chest, fever and palpitation Physical Exam Physical Exam: General- No acute distress Head- atraumatic Eyes- PERRL, EOMI, ENT- oropharynx clear Neck- supple, no JVD Lungs- clear to auscultation Heart- regular rhythm; no murmur Abdomen- normal bowel sounds, nontender, +ostomy bag Extremities- no calf tenderness Neuro- alert, oriented x 3; PERRL, EOMI; no facial palsy; no dysarthria Skin- warm & dry Results & Data Results & Data ([facility]) Vital Signs (Past 12 Hours) Vital Signs Temp Pulse Pulse Resp BP BP BP 06/09/19 07:21 36.7 C 80 20 122/54 L 06/09/19 03:46 36.6 C 86 16 108/47 L 06/09/19 00:10 86 18 06/09/19 00:00 73 29 H 06/08/19 23:54 36.9 C 78 20 122/52 L Pulse Ox 06/09/19 07:21 92 06/09/19 03:46 92 06/09/19 00:10 06/09/19 00:00 06/08/19 23:54
[2019-06-10] MEDS: LEVOTHYROXINE SODIUM 100 MCG TABLET PO SCH (05:06)
[2019-06-10] MEDS: PANTOprazole 40 MG TAB PO SCH (08:12)
[2019-06-10] MEDS: CHOLECALCIFEROL 1,000 UNITS 25 MCG TAB PO SCH (08:12)
[2019-06-10] MEDS: AMLODIPINE BESYLATE 5 MG TAB PO SCH (08:13)
[2019-06-10] MEDS: LOSARTAN POTASSIUM 50 MG TAB PO SCH (08:13)
[2019-06-10] MEDS: METOPROLOL TARTRATE 100 MG TAB PO SCH (08:14)
[2019-06-10] MEDS: LACTOBACILLUS ACIDOPHILUS (FLORANEX) TAB PO SCH ×2 (08:14→11:51)
[2019-06-10] MEDS: FAMOTIDINE 40 MG TABLET PO SCH (08:15)
[2019-06-10] MEDS: COLCHICINE 0.6 MG TAB PO SCH (08:15)
--- NOTE | 2019-06-10 09:21 | Cardiology Progress Note ---
Date of Service June 10, 2019 Assessment & Plan (1) Pericardial effusion: (2) Chest pain: (3) Diverticulosis: The patient has improved enough that I think she can be discharged to outpatient follow-up. I would continue the colchicine after discharge. I will arrange follow-up as an outpatient. Subjective The patient had an uneventful night. Her chest pain has almost completely resolved. She is tolerating the colchicine. Review of Systems Review of Systems: All systems reviewed & are unremarkable except as noted in HPI & below Nothing additional to add. Physical Exam Physical Exam: General: no acute distress and stated age Head: normocephalic, no masses, lesions, tenderness or abnormalities Eyes: conjunctiva are pink and non-injected, sclera clear Neck: supple, no adenopathy, no bruits, normal jugular venous pulse, no hepatojugular reflux Chest: normal shape and normal respiratory effort Lungs: clear to auscultation and percussion Cardiac Exam: - regular rate & rhythm, no murmurs gallops or rubs - normal S1, normal S2 Pulses: 2(+) throughout Abdomen: abdomen soft, non-tender, no abnormal masses and no hepatosplenomegaly Musculoskeletal: no gait disturbance, no joint inflammation, no deforming arthritis Extremities: no edema and no cyanosis Neuro: grossly normal exam Results & Data Vital Signs (Past 12 Hours) Vital Signs Temp Pulse Pulse Resp BP BP Pulse Ox 06/10/19 07:49 36.8 C 77 18 128/68 91 06/10/19 07:00 77 06/10/19 04:00 36.7 C 77 16 129/55 L 94 06/09/19 23:47 36.6 C 78 20 118/54 L 94 Medications Administered Current Inpatient Medications Acetaminophen (Tylenol) 650 mg PO Q4H PRN PRN Reason: Pain or Fever Stop: 07/08/19 21:20 Last Admin: 06/09/19 15:09 Dose: 650 mg Documented by: Amlodipine Besylate (Norvasc) 5 mg PO QAM [facility] Stop: 07/09/19 08:59 Last Admin: 06/10/19 08:13 Dose: 5 mg Documented by: Calcitriol (Rocaltrol) 0.25 mcg PO Q48H [facility] Stop: 07/09/19 08:59 Last Admin: 06/09/19 08:48 Dose: 0.25 mcg Documented by: Colchicine (Colcrys) 0.6 mg PO BID [facility] Stop: 07/08/19 21:20 Last Admin: 06/10/19 08:15 Dose: 0.6 mg Documented by: Famotidine (Pepcid) 40 mg PO BID [facility] Stop: 07/08/19 21:20 Last Admin: 06/10/19 08:15 Dose: 40 mg Documented by: Lactobacillus Acidophilus (Floranex) 4 tab PO TIDM [facility] Stop: 07/09/19 07:59 Last Admin: 06/10/19 08:14 Dose: 4 tab Documented by: Levothyroxine Sodium (Synthroid) 100 mcg PO DAILYBB [facility] Stop: 07/09/19 06:29 Last Admin: 06/10/19 05:06 Dose: 100 mcg Documented by: Losartan Potassium (Cozaar) [facility] Stop: 07/09/19 08:59 Last Admin: 06/10/19 08:13 Dose: 100 mg Documented by: Metoprolol Tartrate (Lopressor) 100 mg PO [facility] Stop: 07/09/19 08:59 Last Admin: 06/10/19 08:14 Dose: 100 mg Documented by: Morphine Sulfate (Morphine Sulfate) 2 mg IV Q4H PRN PRN Reason: Severe Pain Stop: 06/22/19 21:20 Pantoprazole Sodium (Protonix) [facility] Stop: 07/09/19 08:59 Last Admin: 06/10/19 08:12 Dose: 40 mg Documented by: Vitamin D (Vitamin D3) 2,000 units [facility] Stop: 07/09/19 08:59 Last Admin: 06/10/19 08:12 Dose: 2,000 units Documented by:
--- NOTE | 2019-06-10 12:42 | Hospitalist Progress Note ---
Date of Service June 10, 2019 Assessment & Plan (1) Chest pain: (2) Pericardial effusion: Present on admission with chest pain worsening with deep breathing and associated with SOB CT abd/pelvis showed small complex pericardial effusion with mild surrounding inflammation. CXR showed suspected small left pleural effusion and minimal left basilar atelectasis. Had a negative stress test done in April in [place] with Dr. Bob Troponin x3 negative Continue metoprolol ECHO showed no wall motion abnormality. Trivial pericardial effusion. Severe concentric LVH. EF 65 -70 % Cardiology on board recommended to continue Colchicine No additional cardiac testing at this time as per cardiology Case discussed with cardiology that recommended to continue the Colchicine on discharge Ok from cardiology to discharge home today Follow up with cardiology in 2 to 4 weeks (3) Pneumoperitoneum: Recent pneumoperitoneum Pt with hospital admission 05/26/19-05/28/19 at [facility] pneumoperitoneum thought secondary to diverticulosis. Treated conservatively and symptoms resolved and discharged on 10 day course of Augmentin No abdominal pain, N/V, no increased stool Stable (4) Diverticulosis: H/O perforation s/p resection and colostomy in 2019 (5) HTN (hypertension): Continue amlodipine, losartan, metoprolol (pt currently on metoprolol tartrate daily and PCP has recommended changing to succinate however pt has not started yet as she is finishing her current tartrate bottle) Stable (6) GERD (gastroesophageal reflux disease): Continue PPI, H2 dash (7) Hypothyroidism: Continue Levothyroxine DVT Prophylaxis On SCDs CODE Status Full code Disposition Follow up with your PCP in 1 week Follow up with your cardiology in 3 to 4 week Admission and Anticipated Discharge Date Admission Date: June 08, 2019 Subjective Pt was seen and examined Lying in bed with no distress Pt said that she feels much better today She said that she pain improves with deep breathing Denies any palpitation, dizziness and SOB Physical Exam Physical Exam: General- No acute distress Head- atraumatic Eyes- PERRL, EOMI, ENT- oropharynx clear Neck- supple, no JVD Lungs- clear to auscultation Heart- regular rhythm; no murmur Abdomen- normal bowel sounds, nontender, +ostomy bag Extremities- no calf tenderness Neuro- alert, oriented x 3; PERRL, EOMI; no facial palsy; no dysarthria Skin- warm & dry Results & Data Results & Data ([facility]) Vital Signs (Past 12 Hours) Vital Signs Temp Pulse Pulse Resp BP BP Pulse Ox 06/10/19 11:50 37.1 C 73 18 118/66 92 06/10/19 11:45 36.8 C 77 18 118/54 L 128/68 91 06/10/19 11:30 36.8 C 77 18 118/54 L 128/68 91 06/10/19 07:49 36.8 C 77 18 128/68 91 06/10/19 07:00 77 06/10/19 04:00 36.7 C 77 16 129/55 L 94
[2019-06-10] MEDS ORDERED: COLCHICINE 0.6 MG TAB PO ONE (13:51)
--- NOTE | 2019-06-10 18:40 | Discharge Summary ---
Date of Service June 10, 2019 Admission HPI Per Admitting Provider Pt is 84 y/o F with PMH diverticulosis, perforated colon s/p sigmoid resection and colostomy in 2019, hiatal hernia, HTN, hypothyroidism, GERD presented to ER with c/o CP x 1 day. Pt states yesterday started with left sided chest pain described as sharp and worse with inspiration and movement and is with associated SOB. States feels more comfortable if sitting in her recliner. Denies recent injury or trauma, fever/chills, diaphoresis, N/V/D/C, FRANCES, dizziness, syncope, vision changes, neck pain, orthopnea, palpitations, cough, sore throat, choking, otalgia, rhinorrhea, abdominal pain, paresthesias, weakness, extremity weakness, extremity edema, rashes, urinary symptoms. Hx CP earlier in 04/2019 and pt states was seen at [facility] and she reports had negative stress test. Pt states seen Dr Bob - Cardiology in [place] in the past. Pt with hospital admission 05/26/19-05/28/19 at [facility] for epigastric pain radiating to chest and CT scan was found to have pneumoperitoneum predominantly in the mid to upper abdomen, consistent with perforated hollow viscus, thought secondary to diverticulosis. Pt had improvement of symptoms with conservative treatment and thought likely perforation has sealed. There was no evidence for PE at that time. Admission Exam Per Admitting Provider General: no distress, WDWN Head: normocephalic, atraumatic Eyes: PERRL, EOM's intact, conjunctiva non-injected, anicteric ENT: normal inspection external ears, nose, mucous membranes moist Neck: supple, trachea midline, non-tender Lungs: clear, no respiratory distress, no wheezing/rhonchi/rales CV: regular rhythm, rate 108, no murmur, no pretibial edema; chest wall without tenderness to palpation Abd: normal BS, soft, +ostomy to left abdomen with soft brown stool in bag, abdomen non-tender Ext: no cyanosis, no calf tenderness Neuro: A&O x 3, no focal deficits noted, normal affect Skin: warm, dry Principal Diagnosis Chest pain: Pericardial effusion: Pneumoperitoneum: Diverticulosis: HTN (hypertension): GERD (gastroesophageal reflux disease): Hypothyroidism: Discharge Exam General- No acute distress Head- atraumatic Eyes- PERRL, EOMI, ENT- oropharynx clear Neck- supple, no JVD Lungs- clear to auscultation Heart- regular rhythm; no murmur Abdomen- normal bowel sounds, nontender, +ostomy bag Extremities- no calf tenderness Neuro- alert, oriented x 3; PERRL, EOMI; no facial palsy; no dysarthria Skin- warm & dry Discharge Data Allergies Allergy/AdvReac Type Severity Reaction Status Date / Time codeine Allergy Intermediate GI Verified 05/26/19 15:47 SYMPTOMS Nausea Emesis fentanyl Allergy Unknown vomiting Unverified 05/26/19 15:47 Consultations 06/08/19 17:10 ED Decision to Admit Stat 06/08/19 21:21 Consult Case Management - Discharge Planning Routine 06/09/19 08:00 Consult Cardiology Routine Ordered Studies 06/08/19 13:52 CT abd pelvis oral and IV con Stat CT SCAN OF THE ABDOMEN AND PELVIS WITH IV CONTRAST CLINICAL HISTORY: Generalized abdominal pain. COMPARISON STUDY: Abdominal CT dated 05/18/2019. TECHNIQUE: Following the IV administration of 93 cc of Optiray 320, CT scan of the abdomen and pelvis is performed from the lung bases to the proximal femora. Images are reviewed in the axial, sagittal, and coronal planes. IV contrast was administered without complication. Oral contrast was utilized. The examination is degraded by streak artifact from the right arm which could not be elevated above the abdomen. There is also motion artifact. A dose lowering technique was utilized adhering to the principles of ALARA. CT DOSE: 515.38 mGy.cm FINDINGS: Lung bases: The heart is normal in size. There is a small complex pericardial effusion with mild surrounding inflammation. There is trace left pleural effusion. Scarring/atelectasis is present at both lung bases. No airspace consolidation is seen typical for pneumonia. A tiny hiatal hernia is noted. Liver: The contrast-enhanced liver is normal in size, contour, and attenuation. There is moderate intrahepatic biliary ductal dilatation. The hepatic veins and portal veins are patent. A 1.5 cm cyst or hemangioma in the right lobe seen on image #76 is unchanged from previous. Gallbladder: Surgically absent. Spleen: Normal in size and attenuation. Pancreas: Moderately atrophic and grossly unremarkable. Adrenal glands: Unremarkable. Kidneys: The contrast enhanced kidneys are atrophic and without hydronephrosis. The kidneys enhance symmetrically. Abdominal vasculature: The abdominal aorta is normal in course and caliber noting moderate atherosclerotic calcification. Bowel: There is postoperative change from sigmoid colon resection with left lower quadrant colostomy and rectal stump formation. No bowel obstruction is seen. Enteric contrast reaches the distal small bowel. There is mild diverticulosis of the remaining colon without CT evidence of acute diverticulitis. There is also diverticulosis of the small bowel and duodenum. The appendix is well-visualized and normal. Peritoneum: There is no intraperitoneal free air or abdominal ascites. A midline surgical scar is noted. Lymphadenopathy: None. Pelvic viscera: The bladder, uterus, and adnexa are normal as visualized. Skeletal structures: The skeletal structures are osteopenic. There is moderate lumbosacral spondylosis. No lytic or blastic lesions are seen. IMPRESSION: 1. Streak and motion compromised examination. 2. There are no acute infectious or inflammatory findings in the abdomen or pelvis. 3. There is a small complex pericardial effusion with mild surrounding inflammation. This could be seen in the setting of hemopericardium or possibly pericarditis. Clinical correlation will be essential. This could be further assessed with echocardiography if clinically warranted. 4. There is postoperative change from sigmoid colon resection and left lower quadrant colostomy. No bowel obstruction is identified. 5. Trace left pleural effusion. 6. Additional findings as above. ACT 112: Negative or not required by law. Electronically signed by: Remigio Lux M.D. 06/08/2019 4:49 PM Dictated: 06/08/19 1640 Transcribed: 06/08/19 1640 XR chest 1V portable CLINICAL HISTORY: 84 years-old Female presenting with Chest Pain. TECHNIQUE: Portable upright AP view of the chest was obtained. COMPARISON: 05/28/2019. FINDINGS: Atherosclerosis of the aortic arch. Cardiac silhouette normal in size. Minimal left basilar opacity with blunting of the left costovertebral angle, possibly small left pleural effusion. No pneumothorax. Degenerative changes of the thoracic spine. Upper abdomen normal. IMPRESSION: 1. Suspected small left pleural effusion and minimal left basilar atelectasis. ACT 112: Negative or not required by law. Electronically signed by: Onur Truong M.D. 06/08/2019 2:53 PM Dictated: 06/08/19 1448 Transcribed: 06/08/19 1448 Hospital Course (1) Chest pain: (2) Pericardial effusion: Present on admission with chest pain worsening with deep breathing and associated with SOB CT abd/pelvis showed small complex pericardial effusion with mild surrounding inflammation. CXR showed suspected small left pleural effusion and minimal left basilar atelectasis. Had a negative stress test done in April in [place] with Dr. Bob Troponin x3 negative Continue metoprolol ECHO showed no wall motion abnormality. Trivial pericardial effusion. Severe concentric LVH. EF 65 -70 % Cardiology on board recommended to continue Colchicine No additional cardiac testing at this time as per cardiology Case discussed with cardiology that recommended to continue the Colchicine on discharge Ok from cardiology to discharge home today Follow up with cardiology in 2 to 4 weeks (3) Pneumoperitoneum: Recent pneumoperitoneum Pt with hospital admission 05/26/19-05/28/19 at [facility] pneumoperitoneum thought secondary to diverticulosis. Treated conservatively and symptoms resolved and discharged on 10 day course of Augmentin No abdominal pain, N/V, no increased stool Stable (4) Diverticulosis: H/O perforation s/p resection and colostomy in 2019 (5) HTN (hypertension): Continue amlodipine, losartan, metoprolol (pt currently on metoprolol tartrate daily and PCP has recommended changing to succinate however pt has not started yet as she is finishing her current tartrate bottle) Stable (6) GERD (gastroesophageal reflux disease): Continue PPI, H2 dash (7) Hypothyroidism: Continue Levothyroxine DVT Prophylaxis On SCDs CODE Status Full code Disposition Follow up with your PCP in 1 week Follow up with your cardiology in 3 to 4 week Total Time Total Time Spent Total Time Spent (In Minutes): 35 minutes Total Time Includes: Examination of the Patient, Discharge Planning, Medication Reconciliation, Communication With Other Providers and Other Discharge Plan Discharge Items Patient Disposition: Home - Self-Care Reason For Visit: PERICARDIAL EFFUSION Discharge Diagnosis: Chest pain: Pericardial effusion: Pneumoperitoneum: Diverticulosis: HTN (hypertension): GERD (gastroesophageal reflux disease): Hypothyroidism: Condition on Discharge: Good Activity: Resume your previous activity Non-emergency contact: Primary Care Provider Call non-emergency contact if: you have any medication questions Follow-up/Referrals: Nahid Nicholas [Primary Care Provider] - Diet: Heart Healthy Addtl Attending Provider Instructions: Follow up with your primary care provider in 1 within 1 week (Please call to schedule for the appointment) Follow up with cardiology in 2 weeks Continue Colchicine for now until follow up with cardiology Fall precaution Pending Studies at Discharge: No Stand-Alone Forms: My [facility], Smoking Cessation Medications and DC Order Prescriptions: New colchicine [Colcrys] 0.6 mg Tablet 0.6 mg PO BID Qty: 30 RF: 0 Continued metoprolol tartrate [Lopressor] 100 mg tablet 100 mg PO QAM RF: 0 famotidine [Pepcid] 40 mg tablet 40 mg PO BID RF: 0 amlodipine [Norvasc] 5 mg tablet 5 mg PO QAM RF: 0 levothyroxine 100 mcg tablet 100 mcg PO QAM RF: 0 pantoprazole [Protonix] 40 mg tablet,delayed release (DR/EC) 40 mg PO QAM RF: 0 losartan [Cozaar] 100 mg tablet 100 mg PO QAM RF: 0 calcitriol [Rocaltrol] 0.25 mcg capsule 0.25 mcg PO Q OTHER DAY RF: 0 cholecalciferol (vitamin D3) [Vitamin D3] 50 mcg (2,000 unit) Tablet 2,000 unit PO QAM RF: 0 Lactobacillus acidoph-L.bulgar [Floranex] 1 million cell Tablet 4 tab PO TIDM 15 Days Qty: 60 RF: 0 amoxicillin-pot clavulanate [Augmentin] 875-125 mg tablet 1 tab PO BID Qty: 20 RF: 0 acetaminophen [Tylenol] 325 mg Tablet 325 mg PO QID PRN (Reason: Pain) RF: 0 Discharge Orders: Discharge Order (Routine); Ordered 06/10/19 Ordered By: Narda Farah Admission Data Admit Date/Time: 06/08/19 17:59 Attending Provider: Narda Farah Admit Provider: Prasanna Guerrero Primary Care Provider: Nahid Nicholas Other Providers: Prasanna Guerrero ; Andrea Lozada Other Interventions: Discharge Summary Assessment (RN) Last Done: 06/10/19 14:27 DC Date/Time DO NOT enter until pt leaves facility: 06/10/19 15:59
== END 2019-06-10 15:59 | disposition home or self-care (01) | DRG 315 ==
LOC: ED 13:35 → SUATTDRO 17:59 → 1E 17:59 → 2S 06-10 06:00

== ENCOUNTER 2019-06-12 17:31 | Inpatient (IN) ==
[2019-06-12] MEDS ORDERED: SODIUM CHLORIDE 0.9% 1000ML 1,000 ML IV ONE (17:45)
[2019-06-12] MEDS ORDERED: ONDANSETRON INJ 2 MG/ML 2 ML VIAL IV STA (17:45)
--- NOTE | 2019-06-12 17:56 | Emergency Department Note ---
Impression & Plan JAVIER (acute kidney injury), Acute pancreatitis, Acute hyponatremia ED Provider Note NAME: HECTOR MILIAN AGE: 84 SEX: F : 1935 ARRIVES VIA: Walk-In INFORMANT: Patient, ED PROVIDER(S): Cuauhtemoc Magaña MD Chief Complaint: Abdominal pain, nausea vomiting HPI: Patient does present with concern for nausea vomiting and abdominal pain. The patient did have a recent admission and did have a trace pericardial effusion for which they were treating with colchicine. This is presumed to be may be pericarditis. The patient has not had any recent travel or sick contacts, fevers or chills, the patient has not had any change in diet. There are no concerns for travel or coronavirus at this time. 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 Patient states she has been stooling and urinating without difficulty. The patient states that she did have pain this morning did take some Tylenol. The patient's pain has improved. Patient states the pain is been intermittent. Patient's only recent medication change was the colchicine. ROS: See HPI for pertinent positives and negatives. A total of 10 systems were reviewed and otherwise negative. Past medical history: See below Surgical history: See below Social history: See below Physical Exam: GENERAL: WNAD, non-toxic. EYE EXAM: Normal conjunctiva. PERRL, no anisocoria and EOM's grossly intact w/o pain. OROPHARYNX: Moist mucus membranes. Grossly normal dentition. NECK: Supple, no nuchal rigidity, no adenopathy, non-tender. No signs of meningismus. LUNGS: Clear to auscultation. Normal chest wall mechanics. HEART: NSR, no MRG. ABDOMEN: Abdomen soft, upper abdominal pain noted without localization or peritonitis, normo-active bowel sounds, no masses, no rebound or guarding. Left quadrant colostomy in place, brown stool noted. BACK: No CVA TTP. SKIN: No rashes and no bruising. UPPER EXTREMITIES: Upper extremities are grossly normal. LOWER EXTREMITIES: Grossly normal, no edema. NEURO EXAM: A&O x3, cranial nerves II-XII grossly intact, normal speech, moves all 4 extremities on command w/o issue. Differential diagnoses: Appendicitis, ovarian cyst, ovarian torsion, ectopic , TOA, PID, infections, diverticulitis, UTI, obstruction, mesenteric ischemia, aortic pathology, inflammatory bowel disease, renal colic, PUD, pancreatitis, biliary pathology, hernia, volvulus, constipation, as well as other pathologies. Course: Patient was seen and evaluated at the bedside. A full history and physical exam was performed. EKG: Indication: Abdominal pain Normal sinus rhythm, 69, first-degree block, wide QRS, right bundle branch block, T wave inversion inferiorly and in V3 and V4. Inversions not present in V3 and V4 which are new from May 26, 2019. Otherwise unchanged. Imaging Studies: Radiology results as stated below per my review in the radiologist's interpretation: XR chest 1V portable CLINICAL HISTORY: Pericardial effusion COMPARISON STUDY: 06/08/2019 FINDINGS: The heart is normal in size. There is elevation the right hemidiaphragm. There is no failure. There is no focal pulmonary consolidation. There are mild left basilar atelectatic changes.[ IMPRESSION: 1. Elevation the right hemidiaphragm 2. Stable mild left basilar atelectatic change ACT 112: Negative or not required by law. Electronically signed by: Bryn Hardy M.D. 06/12/2019 6:28 PM Dictated: 06/12/191826 Transcribed: 06/12/191826 CT SCAN OF THE ABDOMEN AND PELVIS WITHOUT CONTRAST CLINICAL HISTORY: Nausea, vomiting, upper abdominal pain COMPARISON STUDY: 06/08/2019 TECHNIQUE: CT scan of the abdomen and pelvis was performed from the lung bases to the proximal femurs. Images are reviewed in the axial, sagittal, and coronal planes. IV contrast was not administered for this examination. A dose lowering technique was utilized adhering to the principles of ALARA. CT DOSE: 492.43 mGy.cm FINDINGS: Lower chest: There is minor subpleural dependent reticulation. There is a trace pericardial effusion. Liver: There is a stable 9 mm right lobe hepatic hypodensity. There is stable mild ductal prominence. Gallbladder: Surgically absent. The common bile duct remains dilated measuring 13 mm. Spleen: Normal in size and attenuation. Pancreas: Unremarkable. Adrenal glands: Unremarkable. Kidneys: No renal, ureteral, or bladder calculi are visualized. Bowel: There are multiple fluid-filled small bowel loops with scattered air- fluid levels. There are scattered colonic air-fluid levels. There are no transition zones indicate bowel obstruction. There is a left lower quadrant diverting colostomy. There is a Contreras's pouch. The appendix appears normal. Peritoneum: There is no intraperitoneal free air or abdominal ascites. Vasculature: The abdominal aorta is normal in course and caliber. Adenopathy: None. Pelvic viscera: The bladder, and pelvic viscera are unremarkable. Skeletal structures: No destructive osseous lesions are seen. IMPRESSION: 1. No evidence of bowel obstruction. No evidence of free air 2. Postsurgical changes of a sigmoid resection with Contreras's pouch and left- sided colostomy 3. No renal, ureteral, or bladder calculi identified 4. Surgically absent gallbladder. Stable common bile duct dilatation. 5. Normal appendix ACT 112: Negative or not required by law. Electronically signed by: Bryn Hardy M.D. 06/12/2019 7:37 PM Dictated: 06/12/191930 Transcribed: 06/12/191930 Cardiac monitoring: An order was placed for continuous cardiac monitoring. The monitor shows a rate of 70 with sinus rhythm. MDM: Patient was seen and evaluated the bedside. The patient did present with abdominal pain and associated nausea vomiting. The patient was recently seen and admitted noted to have a pneumoperitoneum but without any further complication. The patient also did have pericardial effusion for which she was treated with colchicine. Patient did a blood work completed along with an EKG, troponin, chest x-ray, CT of the abdomen pelvis and was given IV fluids and a ntiemetics. She was reassessed and feeling improved. The patient was made aware that the patient does have a low sodium and kidney dysfunction. The patient's lipase is also elevated. The patient does state her nausea was feeling improved. The patient's pain was also improving. Did speak the on-call hospitalist agreed to further evaluate treat the patient. Patient was subsequently admitted to the medicine service. Family and patient were informed of the findings and they are agreeable to the plan of care. Past Med/Surg History Medical History Colostomy present Diverticulitis of colon with perforation Diverticulosis GERD (gastroesophageal reflux disease) Hiatal hernia HTN (hypertension) (Chronic) Hypothyroidism Surgical History History of cataract surgery History of colostomy Hx of cholecystectomy Family History Sister Breast cancer Coronary heart disease Brother Coronary heart disease Other Hypertension Social History Preferred Language: Slovak Communication Ability: Effective Licensing Engineer Required: No Beliefs That Will Affect Care: None Current Living Situation: Alone Feels Safe at Home: Yes Smoking Status: Never smoker Hx Alcohol Use: No Hx Substance Use: No Allergies Allergies Allergy/AdvReac Type Severity Reaction Status Date / Time codeine AdvReac Intermediate NAUSEA, Verified 06/12/19 18:36 VOMITING colchicine AdvReac Intermediate GI side Verified 06/12/19 20:55 effects fentanyl AdvReac Intermediate vomiting Verified 06/12/19 18:36 Home Meds Home Medications Medication Instructions Recorded Confirmed amlodipine [Norvasc] 5 mg PO QAM 05/26/19 06/12/19 calcitriol [Rocaltrol] 0.25 mcg PO Q OTHER DAY 05/26/19 06/12/19 cholecalciferol (vitamin D3) 2,000 unit PO QAM 05/26/19 06/12/19 [Vitamin D3] famotidine [Pepcid] 40 mg PO BID 05/26/19 06/12/19 levothyroxine 100 mcg PO QAM 05/26/19 06/12/19 losartan [Cozaar] 100 mg PO QAM 05/26/19 06/12/19 metoprolol tartrate [Lopressor] 100 mg PO QAM 05/26/19 06/12/19 pantoprazole [Protonix] 40 mg PO QPM 05/26/19 06/12/19 acetaminophen [Tylenol] 325 mg PO QID PRN 06/08/19 06/12/19 Lactobacillus acidoph-L.bulgar 4 tab PO TIDM 06/12/19 06/12/19 [Floranex] Previous Rx's Medication Instructions Recorded colchicine [Colcrys] 0.6 mg PO BID #30 tab 06/10/19 Results & Data (ED) Vital Signs Vital Signs - 24 hr 06/12/19 17:34 06/12/19 18:22 06/12/19 18:28 Temperature 36.3 C L Temperature Source Oral Pulse Rate 69 Pulse Rate [Apical] 65 Pulse Rhythm Regular Pulse Rhythm [Apical] Regular Pulse Strength Normal Respiratory Rate 20 16 Respiratory Effort / Characteristics Non-Labored Non-Labored Spontaneous Respiratory Depth Normal Normal Respiratory Pattern Regular Regular Blood Pressure 86/54 L Blood Pressure [Right Arm] 111/50 L Blood Pressure Mean 64 Blood Pressure Mean [Right Arm] 70 Blood Pressure Position Sitting Blood Pressure Position [Right Arm] Semi-fowlers Pulse Oximetry 95 98 98 Oxygen Delivery Method Room Air Room Air Room Air Sepsis Recent Fever Within 48 Hours No Sepsis Action Taken by Nursing No Action Required 06/12/19 19:59 06/12/19 21:42 Temperature Temperature Source Pulse Rate Pulse Rate [Apical] 65 68 Pulse Rhythm Pulse Rhythm [Apical] Regular Regular Pulse Strength Respiratory Rate 16 18 Respiratory Effort / Characteristics Non-Labored Spontaneous Non-Labored Spontaneous Respiratory Depth Normal Normal Respiratory Pattern Regular Regular Blood Pressure Blood Pressure [Right Arm] 111/57 L 116/56 L Blood Pressure Mean Blood Pressure Mean [Right Arm] 75 76 Blood Pressure Position Blood Pressure Position [Right Arm] Semi-fowlers Semi-fowlers Pulse Oximetry 97 94 Oxygen Delivery Method Room Air Room Air Sepsis Recent Fever Within 48 Hours Sepsis Action Taken by Fpc Medications Current Medication List: was personally reviewed by me Laboratory Data Attestation: I reviewed the patient's lab results. Result diagrams: 06/12/19 18:00 06/12/19 18:00 Lab Results 06/12/19 06/12/19 06/12/19 Range/Units 18:00 18:00 18:00 WBC 19.09 H (4.8-10.8) K/uL RBC 4.70 (4.2-5.4) M/uL Hgb 13.9 (12.0-16.0) g/dL POC Hgb (12.0-16.0) g/dl Hct 40.6 (37-47) % POC Hct (37-47) % MCV 86.4 (80-100) fL MCH 29.6 (25-34) pg MCHC 34.2 (32-36) g/dL RDW Std Deviation 41.4 (36.4-46.3) fL RDW Coeff of Grecia 12.9 (11.5-14.5) % Plt Count 393 (130-400) K/uL MPV 10.1 (7.4-10.4) fL Immature Gran % (Auto) 0.4 % Neut % (Auto) 85.3 % Lymph % (Auto) 9.1 % Parker % (Auto) 4.7 % Eos % (Auto) 0.3 % Baso % (Auto) 0.2 % Immature Gran # (Auto) 0.07 H (0.00-0.02) K/uL Neut # (Auto) 16.31 H (1.4-6.5) K/uL Lymph # (Auto) 1.73 (1.2-3.4) K/uL Parker # (Auto) 0.90 H (0.11-0.59) K/uL Eos # (Auto) 0.05 (0-0.5) K/uL Baso # (Auto) 0.03 (0-0.2) K/uL POC Sodium (135-144) mmol/L Sodium 124 L (136-145) mmol/L POC Potassium (3.3-5.0) mmol/L Potassium 4.5 (3.5-5.1) mmol/L POC Chloride (101-112) mmol/L Chloride 93 L (98-107) mmol/L Carbon Dioxide 25 (21-32) mmol/L POC Total CO2 (24-31) mEq/l Anion Gap 6.0 (3-11) POC Anion Gap (16-25) mmol/L POC BUN (7-18) mg/dl BUN 32 H (7-18) mg/dl Creatinine 2.15 H (0.6-1.2) mg/dl POC Creatinine (0.6-1.3) mg/dl Est Cr Clr Drug Dosing Not Reportable Est GFR ( Amer) 23.9 Est GFR (Non-Af Amer) 20.6 BUN/Creatinine Ratio 14.8 (10-20) Glucose 136 H (70-99) mg/dl POC Glucose (other) (70-99) mg/dl Osmolality 281 (280-300) mOsm/kg POC Lactic Acid Adrian (0.90-1.70) mmol/L Lactate (0.4-2.0) mmol/L Calcium 9.5 (8.5-10.1) mg/dl POC Ioniz Calcium Kendell (1.12-1.32) mmol/l Magnesium 2.2 (1.8-2.4) mg/dl Total Bilirubin 1.0 (0.2-1) mg/dl AST 114 H (15-37) U/L ALT 66 (12-78) U/L Alkaline Phosphatase 150 H (45-117) U/L Troponin I < 0.015 (0-0.045) ng/ml Total Protein 8.6 H (6.4-8.2) gm/dl Albumin 3.2 L (3.4-5.0) gm/dl Globulin 5.4 H (2.5-4.0) gm/dl Albumin/Globulin Ratio 0.6 L (0.9-2) Lipase 1748 H (73-393) U/L 06/12/19 06/12/19 06/12/19 Range/Units 18:04 18:08 20:38 WBC (4.8-10.8) K/uL RBC (4.2-5.4) M/uL Hgb (12.0-16.0) g/dL POC Hgb 15.0 (12.0-16.0) g/dl Hct (37-47) % POC Hct 44 (37-47) % MCV (80-100) fL MCH (25-34) pg MCHC (32-36) g/dL RDW Std Deviation (36.4-46.3) fL RDW Coeff of Grecia (11.5-14.5) % Plt Count (130-400) K/uL MPV (7.4-10.4) fL Immature Gran % (Auto) % Neut % (Auto) % Lymph % (Auto) % Parker % (Auto) % Eos % (Auto) % Baso % (Auto) % Immature Gran # (Auto) (0.00-0.02) K/uL Neut # (Auto) (1.4-6.5) K/uL Lymph # (Auto) (1.2-3.4) K/uL Parker # (Auto) (0.11-0.59) K/uL Eos # (Auto) (0-0.5) K/uL Baso # (Auto) (0-0.2) K/uL POC Sodium 127 L (135-144) mmol/L Sodium (136-145) mmol/L POC Potassium 4.7 (3.3-5.0) mmol/L Potassium (3.5-5.1) mmol/L POC Chloride 93 L (101-112) mmol/L Chloride (98-107) mmol/L Carbon Dioxide (21-32) mmol/L POC Total CO2 25 (24-31) mEq/l Anion Gap (3-11) POC Anion Gap 14.0 L (16-25) mmol/L POC BUN 31 H (7-18) mg/dl BUN (7-18) mg/dl Creatinine (0.6-1.2) mg/dl POC Creatinine 2.4 H (0.6-1.3) mg/dl Est Cr Clr Drug Dosing Est GFR ( Amer) Est GFR (Non-Af Amer) BUN/Creatinine Ratio (10-20) Glucose (70-99) mg/dl POC Glucose (other) 143 H (70-99) mg/dl Osmolality (280-300) mOsm/kg POC Lactic Acid Adrian 1.88 H (0.90-1.70) mmol/L Lactate 1.2 (0.4-2.0) mmol/L Calcium (8.5-10.1) mg/dl POC Ioniz Calcium Kendell 1.14 (1.12-1.32) mmol/l Magnesium (1.8-2.4) mg/dl Total Bilirubin (0.2-1) mg/dl AST (15-37) U/L ALT (12-78) U/L Alkaline Phosphatase (45-117) U/L Troponin I (0-0.045) ng/ml Total Protein (6.4-8.2) gm/dl Albumin (3.4-5.0) gm/dl Globulin (2.5-4.0) gm/dl Albumin/Globulin Ratio (0.9-2) Lipase (73-393) U/L Administered Medications Discontinued Medications Sodium Chloride (Nss 1000ml) 1,000 mls @ 999 mls/hr IV .Q1H1M ONE Stop: 06/12/19 18:45 Last Admin: 06/12/19 18:23 Dose: 999 mls/hr Documented by: [id number] Ondansetron HCl (Zofran) 4 mg IV NOW STA Stop: 06/12/19 17:46 Last Admin: 06/12/19 18:23 Dose: 4 mg Documented by: [id number] Discharge Plan Visit Data Chief Complaint: Nausea Stated Complaint: Nausea, Dehydrated, General Weakness, Abd pain ED Provider: Cuauhtemoc Magaña Discharge Problem: JAVIER (acute kidney injury), Acute pancreatitis, Acute hyponatremia Discharge Instructions Interventions: ED Discharge Assessment Last Done: 06/12/19 21:58 Forms Stand Alone Forms: [facility] Prescriptions Prescriptions: No Action metoprolol tartrate [Lopressor] 100 mg tablet 100 mg PO QAM RF: 0 famotidine [Pepcid] 40 mg tablet 40 mg PO BID RF: 0 amlodipine [Norvasc] 5 mg tablet 5 mg PO QAM RF: 0 levothyroxine 100 mcg tablet 100 mcg PO QAM RF: 0 pantoprazole [Protonix] 40 mg tablet,delayed release (DR/EC) 40 mg PO QPM RF: 0 losartan [Cozaar] 100 mg tablet 100 mg PO QAM RF: 0 calcitriol [Rocaltrol] 0.25 mcg capsule 0.25 mcg PO Q OTHER DAY RF: 0 cholecalciferol (vitamin D3) [Vitamin D3] 50 mcg (2,000 unit) Tablet 2,000 unit PO QAM RF: 0 acetaminophen [Tylenol] 325 mg Tablet 325 mg PO QID PRN (Reason: Pain) RF: 0 colchicine [Colcrys] 0.6 mg Tablet 0.6 mg PO BID Qty: 30 RF: 0 Lactobacillus acidoph-L.bulgar [Floranex] 1 million cell tablet 4 tab PO TIDM RF: 0 Referrals Referrals: Nahid Nicholas [Primary Care Provider] - Discharge Problem: Acute pancreatitis Qualifiers: Pancreatitis type: unspecified pancreatitis type Acute pancreatitis complication: unspecified Qualified Code(s): K85.90 - Acute pancreatitis without necrosis or infection, unspecified
[2019-06-12 18:12] LABS: Basophils # (auto) 0.03 K/uL (0-0.2); Basophils % (auto) 0.2 %; Eosinophils # (auto) 0.05 K/uL (0-0.5); Eosinophils % (auto) 0.3 %; Hematocrit (blood only) 40.6 % (37-47); Hemoglobin 13.9 g/dL (12.0-16.0); Immature Granulocytes # (auto) 0.07 K/uL (0.00-0.02); Immature Granulocytes % (auto) 0.4 %; Lymphocytes # (auto) 1.73 K/uL (1.2-3.4); Lymphocytes % (auto) 9.1 %; Mean Corpuscular Hemoglobin 29.6 pg (25-34); Mean Corpuscular Hgb Conc 34.2 g/dL (32-36); Mean Corpuscular Volume 86.4 fL (80-100); Mean Platelet Volume 10.1 fL (7.4-10.4); Monocytes % (auto) 4.7 %; Neutrophils # (auto) 16.31 K/uL (1.4-6.5); Neutrophils % (auto) 85.3 %; Platelet Count 393 K/uL (130-400); RDW Coefficient of Variation 12.9 % (11.5-14.5); RDW Standard Deviation 41.4 fL (36.4-46.3); White Blood Count 19.09 K/uL (4.8-10.8)
--- NOTE | 2019-06-12 18:29 | XRay Report ---
XR chest 1V portable CLINICAL HISTORY: Pericardial effusion COMPARISON STUDY: 06/08/2019 FINDINGS: The heart is normal in size. There is elevation the right hemidiaphragm. There is no failur e. There is no focal pulmonary consolidation. There are mild left basilar atelectatic changes.[ IMPRESSION: 1. Elevation the right hemidiaphragm 2. Stable mild left basilar atelectatic change ACT 112: Negative or not required by law. Electronically signed by: Bryn Hardy M.D. 06/12/2019 6:28 PM
[2019-06-12 18:36] LABS: iSTAT Creatinine 2.4 mg/dl (0.6-1.3); iSTAT Ionized Calcium 1.14 mmol/l (1.12-1.32); iSTAT Potassium 4.7 mmol/L (3.3-5.0)
[2019-06-12 18:41] LABS: Alanine Aminotransferase 66 U/L (12-78); Albumin Level 3.2 gm/dl (3.4-5.0); Aspartate Aminotransferase 114 U/L (15-37); BUN Creatinine Ratio 14.8 (10-20); Blood Urea Nitrogen 32 mg/dl (7-18); Calcium 9.5 mg/dl (8.5-10.1); Carbon Dioxide 25 mmol/L (21-32); Chloride 93 mmol/L (98-107); Est GFR (African American) 23.9; Est GFR (Non-African American) 20.6; Glucose 136 mg/dl (70-99); Potassium 4.5 mmol/L (3.5-5.1); Sodium 124 mmol/L (136-145)
[2019-06-12] MEDS ORDERED: SODIUM CHLORIDE 0.9% 1000ML 500 ML IV ONE (18:45)
[2019-06-12 18:46] LABS: Albumin Globulin Ratio 0.6 (0.9-2); Alkaline Phosphatase 150 U/L (45-117); Globulin 5.4 gm/dl (2.5-4.0); Lipase 1748 U/L (73-393); Total Protein 8.6 gm/dl (6.4-8.2); Troponin I < 0.015 ng/ml (0-0.045)
--- NOTE | 2019-06-12 19:39 | CT Scan Report ---
CT SCAN OF THE ABDOMEN AND PELVIS WITHOUT CONTRAST CLINICAL HISTORY: Nausea, vomiting, upper abdominal pain COMPARISON STUDY: 06/08/2019 TECHNIQUE: CT scan of the abdomen and pelvis was performed from the lung bases to the proximal femurs . Images are reviewed in the axial, sagittal, and coronal planes. IV contrast was not administered fo r this examination. A dose lowering technique was utilized adhering to the principles of ALARA. CT DOSE: 492.43 mGy.cm FINDINGS: Lower chest: There is minor subpleural dependent reticulation. There is a trace pericardial effusion. Liver: There is a stable 9 mm right lobe hepatic hypodensity. There is stable mild ductal prominence. Gallbladder: Surgically absent. The common bile duct remains dilated measuring 13 mm. Spleen: Normal in size and attenuation. Pancreas: Unremarkable. Adrenal glands: Unremarkable. Kidneys: No renal, ureteral, or bladder calculi are visualized. Bowel: There are multiple fluid-filled small bowel loops with scattered air-fluid levels. There are s cattered colonic air-fluid levels. There are no transition zones indicate bowel obstruction. There is a left lower quadrant diverting colostomy. There is a Contreras's pouch. The appendix appears normal. Peritoneum: There is no intraperitoneal free air or abdominal ascites. Vasculature: The abdominal aorta is normal in course and caliber. Adenopathy: None. Pelvic viscera: The bladder, and pelvic viscera are unremarkable. Skeletal structures: No destructive osseous lesions are seen. IMPRESSION: 1. No evidence of bowel obstruction. No evidence of free air 2. Postsurgical changes of a sigmoid resection with Contreras's pouch and left-sided colostomy 3. No renal, ureteral, or bladder calculi identified 4. Surgically absent gallbladder. Stable common bile duct dilatation. 5. Normal appendix ACT 112: Negative or not required by law. Electronically signed by: Bryn Hardy M.D. 06/12/2019 7:37 PM
[2019-06-12] MEDS ORDERED: PROMETHAZINE HCL 12.5 MG in SODIUM CHLORIDE 0.9% 50 ML IV PRN (20:20)
[2019-06-12 20:42] LABS: Magnesium 2.2 mg/dl (1.8-2.4)
--- NOTE | 2019-06-12 21:03 | History & Physical Report ---
Date of Service June 12, 2019 Assessment & Plan (1) Acute pancreatitis: This is an 84-year-old female who has significant past medical history of HTN, hypothyroidism, GERD, HH, history of perforated colon status post sigmoid resection and colostomy in 2019, diverticulosis who presents to ED secondary to epigastric pain and nausea x2 days. Likely NSAID induced pancreatitis JAVIER in setting of poor PO intake/NSAIDS Admit to PCU please refer to Dr. Taylor addendum for further details regarding plan (2) Acute hyponatremia: Na 124 Pt mental status clear recommend serum osm, urine na and urine osm further plan per attending (3) Leukocytosis: wbc 19k was normal on discharge possible 2/2 to pancreatitis refer to Dr. Taylor addendum for further plan (4) JAVIER (acute kidney injury): baseline cr 0.7 bun/cr 32 and 2.15 like in setting of NSAID use/hypovolemia due to po po intake continue IVF (5) Pneumoperitoneum: s/p hospitalization 05/25 to 05/27 [place] likely secondary to diverticulosis Treated conservatively and finished 10-day course of Augmentin (6) Perforation of intestine due to diverticulitis of gastrointestinal tract: 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 Colostomy care (7) Pericarditis: Recently admitted 06/07 to 06/09 secondary to left-sided chest pain Found to have pericardial effusion Echo on 06/08 revealed EF 65 to 70%, grade 1 diastolic dysfunction, pericardial effusion Symptoms felt likely secondary to acute pericarditis Placed on colchicine We will hold secondary to JAVIER and pancreatitis Consult cardiology for further input (8) HTN (hypertension): blood pressure controlled continue amlodipine hold losartan given JAVIER (9) Hypothyroidism: continue levothyroxine (10) GERD (gastroesophageal reflux disease): continue PPI and famotidine hx of Hiatal hernia as well (11) DVT prophylaxis: Per attending Disposition: Admit to PCU Follow up: PCP Dr. Nicholas upon discharge Pt was seen and examined in collaboration with Dr. Taylor, please see addendum History of Present Illness Chief Complaint: Epigastric pain and nausea x2 days. Primary Care Provider: Lisandro Nicholas This is an 84-year-old female who has significant past medical history of HTN, hypothyroidism, GERD, HH, history of perforated colon status post sigmoid resection and colostomy in 2019, diverticulosis who presents to ED secondary to epigastric pain and nausea x2 days. Of significance patient has had 2 recent hospitalizations. First was a 05/25 to 05/27 secondary to epigastric pain in which she was diagnosed with pneumoperitoneum felt likely due to diverticulosis. She was treated conservatively with oral antibiotics Augmentin for a 10-day course. She just recently completed this course. Unfortunately she was rehospitalized on 06/07 to 06/09 secondary to left-sided chest pain. CT scan revealed small pericardial effusion and this was confirmed by echocardiogram. She did have EKG changes. She was seen and evaluated by cardiology who felt symptoms were likely secondary to pericarditis. She was placed on colchicine 0.6 mg twice daily. Since discharge on 06/09 she has been experiencing epigastric abdominal pain that is constant, no relief with Pepto-Bismol, nothing made better or worse, no radiation. She was concerned she had another pneumoperitoneum. She also has been experiencing nausea and few episodes of emesis. Overall today she has had significant decreased appetite. Further symptoms include lightheadedness and dizziness with standing, decreased urinary frequency and poor oral intake. She denies any fever, chills, sweats, syncope, chest pain, shortness of breath, palpitations, cough, hematochezia, hematemesis, melena. She currently does have a colostomy. She stated yesterday she had significant amount of liquid stool but today feels it is more formed. She states her symptoms of chest pain due to pericarditis have completely resolved. In ED she remained hemodynamically stable. Lab abnormalities include leukocytosis at 19 K, sodium 124, K4.5, BUN 32, creatinine 2.15, glucose 136, lactic acid 1.8, AST 114, alk phos 150, troponin WNL, lipase 1748. Chest x-ray revealed stable mild left basilar atelectatic change. Ct scan abd/pelvis: 1. No evidence of bowel obstruction. No evidence of free air, 2. Postsurgical changes of a sigmoid resection with Contreras's pouch and left-sided colostomy, 3. No renal, ureteral, or bladder calculi identified, 4. Surgically absent gallbladder. Stable common bile duct dilatation. 5. Normal appendix She received IVF and IV zofran in ED and feels much improved since arrival. Allergies Allergy/AdvReac Type Severity Reaction Status Date / Time codeine AdvReac Intermediate NAUSEA, Verified 06/12/19 18:36 VOMITING colchicine AdvReac Intermediate GI side Verified 06/12/19 20:55 effects fentanyl AdvReac Intermediate vomiting Verified 06/12/19 18:36 Home Medications Home Medications Medication Instructions Recorded Confirmed Type amlodipine [Norvasc] 5 mg PO QAM 05/26/19 06/12/19 History calcitriol [Rocaltrol] 0.25 mcg PO Q OTHER DAY 05/26/19 06/12/19 History cholecalciferol (vitamin D3) 2,000 unit PO QAM 05/26/19 06/12/19 History [Vitamin D3] famotidine [Pepcid] 40 mg PO BID 05/26/19 06/12/19 History levothyroxine 100 mcg PO QAM 05/26/19 06/12/19 History losartan [Cozaar] 100 mg PO QAM 05/26/19 06/12/19 History metoprolol tartrate [Lopressor] 100 mg PO QAM 05/26/19 06/12/19 History pantoprazole [Protonix] 40 mg PO QPM 05/26/19 06/12/19 History acetaminophen [Tylenol] 325 mg PO QID PRN 06/08/19 06/12/19 History colchicine [Colcrys] 0.6 mg PO BID #30 tab 06/10/19 06/12/19 Rx Lactobacillus acidoph-L.bulgar 4 tab PO TIDM 06/12/19 06/12/19 History [Floranex] Past Med/Surg History Medical History Colostomy present Diverticulitis of colon with perforation Diverticulosis GERD (gastroesophageal reflux disease) Hiatal hernia HTN (hypertension) (Chronic) Hypothyroidism Surgical History History of cataract surgery History of colostomy Hx of cholecystectomy Family History Sister Breast cancer Coronary heart disease Brother Coronary heart disease Other Hypertension Social History Preferred Language: Nauruan Communication Ability: Effective Child Care Attendant Required: No Beliefs That Will Affect Care: None Current Living Situation: Alone Other Information That Helps Us Care for You: No Feels Safe at Home: Yes Safety Concerns: Feels Safe At This Time Smoking Status: Never smoker Hx Alcohol Use: No Hx Substance Use: No Review of Systems Review of Systems: All systems reviewed & are unremarkable except as noted in HPI & below Physical Exam Physical Exam: Constitutional: WD/WN, Elderly, F, vitals as above, NAD, sitting up in bed, pleasant, conversing easily Head: Normocephalic, Atraumatic Eyes: PERRL, conjunctivae normal, anicteric sclerae ENMT: external ear and nose normal, oropharynx normal membranes dry Neck: trachea midline, no thyromegaly normal visual inspection Respiratory: normal respiratory effort, lungs clear to auscultation, no wheeze, rales, rhonchi. Normal insp/exp effort, no accessory muscle use Cardiovascular: RRR, no murmur, no edema Vessels: no JVD or carotid bruit Chest: normal inspection of chest Abdomen: normal bowel sounds, soft, nontender, no hepatosplenomegaly , +LLQ colostomy with brown stool present Musculoskeletal: no cyanosis or clubbing, extremities motor strength 5/5 Skin: no rashes, warm and dry normal turgor Neurologic: PERRL, EOMI, accommodation nl, no face palsy, no dysarthria CN's II-XI intact bilaterally and moves all extremities Psychiatric: A+Ox3, euthymic affect Lymphatic: no cervical or axillary lymphadenopathy : deferred Results & Data Results & Data ([facility]) Vital Signs (Past 12 Hours) Vital Signs Temp Pulse Pulse Resp BP BP Pulse Ox 06/12/19 19:59 65 16 111/57 L 97 06/12/19 18:28 65 16 111/50 L 98 06/12/19 18:22 98 06/12/19 17:34 36.3 C L 69 20 86/54 L 95 Laboratory Results Short CBC 06/12/19 Range/Units 18:00 WBC 19.09 H (4.8-10.8) K/uL Hgb 13.9 (12.0-16.0) g/dL Hct 40.6 (37-47) % Plt Count 393 (130-400) K/uL BMP 06/12/19 18:00 Sodium 124 L Potassium 4.5 Chloride 93 L Carbon Dioxide 25 BUN 32 H Creatinine 2.15 H Glucose 136 H Calcium 9.5 Cardiac Enzymes 06/12/19 Range/Units 18:00 Troponin I < 0.015 (0-0.045) ng/ml Liver Function 06/12/19 Range/Units 18:00 Total Bilirubin 1.0 (0.2-1) mg/dl AST 114 H (15-37) U/L ALT 66 (12-78) U/L Alkaline Phosphatase 150 H (45-117) U/L Albumin 3.2 L (3.4-5.0) gm/dl Diagnostic Findings CT abd/Pelvis: 1. No evidence of bowel obstruction. No evidence of free air 2. Postsurgical changes of a sigmoid resection with Contreras's pouch and left-sided colostomy 3. No renal, ureteral, or bladder calculi identified 4. Surgically absent gallbladder. Stable common bile duct dilatation. 5. Normal appendix CXR: IMPRESSION: 1. Elevation the right hemidiaphragm 2. Stable mild left basilar atelectatic change Medications Administered Short CBC 06/12/19 Range/Units 18:00 WBC 19.09 H (4.8-10.8) K/uL Hgb 13.9 (12.0-16.0) g/dL Hct 40.6 (37-47) % Plt Count 393 (130-400) K/uL BMP 06/12/19 18:00 Sodium 124 L Potassium 4.5 Chloride 93 L Carbon Dioxide 25 BUN 32 H Creatinine 2.15 H Glucose 136 H Calcium 9.5 Cardiac Enzymes 06/12/19 Range/Units 18:00 Troponin I < 0.015 (0-0.045) ng/ml Liver Function 06/12/19 Range/Units 18:00 Total Bilirubin 1.0 (0.2-1) mg/dl AST 114 H (15-37) U/L ALT 66 (12-78) U/L Alkaline Phosphatase 150 H (45-117) U/L Albumin 3.2 L (3.4-5.0) gm/dl ECG Rate (beats per minute): 69 Rhythm: normal sinus Code Status & VTE Plan Code Status Full Code VTE Prophylaxis Plan VTE Prophylaxis will be ordered: Yes Supervising Physician Co-Signing Physician Notes IM ATTENDING : Patient seen and examined. History obtained from patient and records. Preceding documentation by Ms. DIA Suárez reviewed. FINAL ASSESSMENT AND PLAN as follows : Gastroenteritis likely secondary to colchicine hx pericarditis for which above medication was prescribed Rule out C. difficile, given history Augmentin Rx ? Pancreatitis ARF, hyponatremia secondary to above Hypertension, stable Hypothyroidism, euthyroid as of recent TSH GERD, stable on regimen Hyperglycemia, likely prediabetes, hemoglobin A1c of 5.04 February 2013 Medical telemetry given hyponatremia Add colchicine to medication allergy/ADR list Baseline UA, monitor creatinine response to IVF Nephrology consult if without improvement in kidney function in a.m. Stool C. difficile GI consult RE possible pancreatitis Cardiology consult in a.m. RE colchicine alternative for pericarditis DVT prophylaxis with Heparin subcu Full code Text document was generated using [employer] voice recognition software. It may contain grammatical or spelling errors. Kindly contact undersigned for clarification of any documentation item in question. (1) Acute pancreatitis Acute pancreatitis complication: unspecified Pancreatitis type: unspecified pancreatitis type Qualified Code(s): K85.90 - Acute pancreatitis without necrosis or infection, unspecified
[2019-06-12] MEDS ORDERED: HYDROmorphone INJ 0.5 MG/0.5 ML SYR IV PRN (22:37)
[2019-06-12] MEDS ORDERED: OXYCODONE HCL IR 5 MG TAB (IMMEDIATE RELEASE) PO PRN (22:37)
[2019-06-12] MEDS: LACTATED RINGER'S 1,000 ML IV SCH (23:37)
[2019-06-12] MEDS: HEPARIN SOD 5,000 UNIT/0.5 ML VIAL SQ SCH (23:41)
[2019-06-12] MEDS: FAMOTIDINE 20 MG TAB PO SCH (23:41)
[2019-06-13 02:40] LABS: Basophils # (auto) 0.02 K/uL (0-0.2); Basophils % (auto) 0.2 %; Eosinophils # (auto) 0.07 K/uL (0-0.5); Eosinophils % (auto) 0.5 %; Hematocrit (blood only) 36.2 % (37-47); Hemoglobin 12.4 g/dL (12.0-16.0); Immature Granulocytes # (auto) 0.04 K/uL (0.00-0.02); Immature Granulocytes % (auto) 0.3 %; Lymphocytes # (auto) 2.14 K/uL (1.2-3.4); Lymphocytes % (auto) 16.3 %; Mean Corpuscular Hemoglobin 29.2 pg (25-34); Mean Corpuscular Hgb Conc 34.3 g/dL (32-36); Mean Corpuscular Volume 85.4 fL (80-100); Monocytes # (auto) 0.71 K/uL (0.11-0.59); Monocytes % (auto) 5.4 %; Neutrophils # (auto) 10.18 K/uL (1.4-6.5); Neutrophils % (auto) 77.3 %; Platelet Count 335 K/uL (130-400); RDW Coefficient of Variation 12.9 % (11.5-14.5); Red Blood Count 4.24 M/uL (4.2-5.4); White Blood Count 13.16 K/uL (4.8-10.8)
[2019-06-13 03:04] LABS: BUN Creatinine Ratio 18.4 (10-20); Calcium 9.1 mg/dl (8.5-10.1); Creatinine Clr Calc Pharmacy 18.9 ml/min; Est GFR (African American) 26.9; Est GFR (Non-African American) 23.2; Potassium 4.8 mmol/L (3.5-5.1)
[2019-06-13 05:44] LABS: Estimated Average Glucose 128 mg/dl; Hemoglobin A1C 6.1 % (4.5-5.6)
[2019-06-13] MEDS: LEVOTHYROXINE SODIUM 100 MCG TABLET PO SCH (05:53)
[2019-06-13] MEDS: HEPARIN SOD 5,000 UNIT/0.5 ML VIAL SQ SCH ×3 (05:54→21:11)
[2019-06-13 07:57] LABS: Cdiff Antigen Positive; Cdiff Toxin A+B Negative Cdiff Toxin (Negative)
[2019-06-13 08:24] LABS: Albumin Level 2.6 gm/dl (3.4-5.0); BUN Creatinine Ratio 19.4 (10-20); Creatinine Clr Calc Pharmacy 20.1 ml/min; Est GFR (African American) 28.9; Est GFR (Non-African American) 24.9; Potassium 4.6 mmol/L (3.5-5.1)
[2019-06-13 08:29] LABS: Albumin Globulin Ratio 0.7 (0.9-2); Bilirubin,Total 0.8 mg/dl (0.2-1); Globulin 3.9 gm/dl (2.5-4.0); Total Protein 6.5 gm/dl (6.4-8.2)
[2019-06-13] MEDS: AMLODIPINE BESYLATE 5 MG TAB PO SCH (08:35)
[2019-06-13] MEDS: FAMOTIDINE 20 MG TAB PO SCH ×2 (08:36→21:08)
[2019-06-13] MEDS: METOPROLOL TARTRATE 100 MG TAB PO SCH (08:36)
[2019-06-13] MEDS: LACTOBACILLUS ACIDOPHILUS (FLORANEX) TAB PO SCH ×3 (08:36→16:43)
[2019-06-13] MEDS: LACTATED RINGER'S 1,000 ML IV SCH ×2 (08:37→17:06)
--- NOTE | 2019-06-13 10:13 | Nephrology Consultation ---
Date of Consultation June 13, 2019 Assessment & Plan (1) Acute hyponatremia: Clinically improving at acceptable rate and likely due to volume depletion. No indication for further urine studies at this time Continue lactated Ringer's at 100 mL hourly as currently ordered; okay from sodium and renal standpoint to increase as indicated; would not decrease as she developed shortness of breath Present on Admission?: Yes (2) JAVIER (acute kidney injury): Prior creatinine had been 0.8 as recently as June 08. Presenting creatinine June 11 was 2.2; improved to 1.8 on labs this morning. Prerenal acute kidney injury in the setting of pancreatitis, nonoliguric and improving. Note she has not had any NSAIDs. Clinically improving but still borderline hypotensive and early in hospital course/work-up Continue to avoid nephrotoxins Continue to hold Cozaar Will put hold parameters on other blood pressure medications as well if not already there Lactated Ringer's as above Will need renal clinic follow-up at discharge Present on Admission?: Yes History of Present Illness Reason for Consultation: hyponatremia, JAVIER Requesting Physician: Dr Sierra Attending Physician: Eloina Potts MD History of Present Illness 84 y/o whom I am asked to evaluate for hyponatremia and acute renal failure was admitted last evening for acute pancreatitis. Past medical history includes hypertension, hypothyroid, perforated colon status post sigmoid resection and colostomy 2018. She has had 2 recent brief hospital stays here. She had a 48- hour stay in late April for pneumoperitoneum attributed to diverticulosis with conservative management and oral antibiotics. Then another 48-hour stay June 07 to June 09 for pericarditis treated with twice daily colchicine. The patient developed recurrent epigastric pain and nausea with a few episodes of emesis and poor oral intake and sought reevaluation. She also noted presyncopal symptoms as well as decreased urinary output with colostomy output becoming sectionally watery. Noted on presentation to have serum sodium 124, potassium 4.5, creatinine 2.2, lactic acid 1.8, lipase 1748. She was started on aggressive fluid resuscitation lactated Ringer's at 150 mL an hour which she has tolerated. She feels improved this morning and on my evaluation endorses no nausea and improved epigastric pain. She remains n.p.o.; she is getting up to the bathroom by herself without concerns for balance; urine output has picked up. Colostomy output remains watery and Unformed. GI has evaluated the patient and she is for MRCP today to evaluate for biliary obstruction if present. Cardiology has evaluated the patient: No indication at this time to resume colchicine which had been held on presentation. Allergies Allergy/AdvReac Type Severity Reaction Status Date / Time codeine AdvReac Intermediate NAUSEA, Verified 06/12/19 18:36 VOMITING colchicine AdvReac Intermediate GI side Verified 06/12/19 20:55 effects fentanyl AdvReac Intermediate vomiting Verified 06/12/19 18:36 Home Medications Home Medications Medication Instructions Recorded Confirmed Type amlodipine [Norvasc] 5 mg PO QAM 05/26/19 06/12/19 History calcitriol [Rocaltrol] 0.25 mcg PO Q OTHER DAY 05/26/19 06/12/19 History cholecalciferol (vitamin D3) 2,000 unit PO QAM 05/26/19 06/12/19 History [Vitamin D3] famotidine [Pepcid] 40 mg PO BID 05/26/19 06/12/19 History levothyroxine 100 mcg PO QAM 05/26/19 06/12/19 History losartan [Cozaar] 100 mg PO QAM 05/26/19 06/12/19 History metoprolol tartrate [Lopressor] 100 mg PO QAM 05/26/19 06/12/19 History pantoprazole [Protonix] 40 mg PO QPM 05/26/19 06/12/19 History acetaminophen [Tylenol] 325 mg PO QID PRN 06/08/19 06/12/19 History colchicine [Colcrys] 0.6 mg PO BID #30 tab 06/10/19 06/12/19 Rx Lactobacillus acidoph-L.bulgar 4 tab PO TIDM 06/12/19 06/12/19 History [Floranex] Patient History Medical History Colostomy present Diverticulitis of colon with perforation Diverticulosis GERD (gastroesophageal reflux disease) Hiatal hernia HTN (hypertension) (Chronic) Hypothyroidism Surgical History History of cataract surgery History of colostomy Hx of cholecystectomy Family History Sister Breast cancer Coronary heart disease Brother Coronary heart disease Other Hypertension Social History Preferred Language: Malagasy Communication Ability: Effective Supervisor [employer] Required: No Beliefs That Will Affect Care: None Current Living Situation: Alone Other Information That Helps Us Care for You: No Feels Safe at Home: Yes Safety Concerns: Feels Safe At This Time Smoking Status: Never smoker Hx Alcohol Use: No Hx Substance Use: No Review of Systems Review of Systems: All systems reviewed & are unremarkable except as noted in HPI & below Physical Exam Constitutional: well developed and well nourished; no acute distress On room air alert and oriented x3 and maneuvers readily for exam without assist; nontoxic-appearing Eyes: EOM intact bilaterally ENMT: Ears: no external ear abnormality Nose: no external nose abnormality Mouth: + dry oral mucous membranes Neck: no nuchal rigidity Respiratory: normal respiratory effort and + cough (Dry cough with deep inspiration consistently) Auscultation: + diminished lung sounds; + lungs not clear to auscultation Cardiovascular: RRR, no murmur, no edema Gastrointestinal (Abdomen): Inspection/Auscultation: normal bowel sounds Percussion/Palpation: abdomen soft; abdomen nontender Ostomy left lower quadrant with watery brown copious output Musculoskeletal: Extremities: strength 5/5 throughout Skin: no rashes, warm and dry Neurologic: davis, fluent speech, no tremor Psychiatric: A+Ox3, euthymic affect Genitourinary: No Freeman Results & Data Vital Signs (Past 12 Hours) Vital Signs Temp Pulse Pulse Resp BP Pulse Ox 06/13/19 07:47 36.4 C L 63 20 107/68 95 06/13/19 07:12 62 06/13/19 03:44 36.3 C L 69 18 108/66 93 06/12/19 22:39 36.5 C 78 16 117/73 93 Laboratory Results 06/13/19 02:25 06/13/19 06:43 Discrepant sodium readings from 6 AM today: 1 reading is 124, 1 reading is 129: Both readings drawn within 10 minutes of each other. Lab aware and investigating 6 AM creatinine 1.8 Midday sodium 129; no potassium or creatinine obtained Diagnostic Findings CT SCAN OF THE ABDOMEN AND PELVIS WITHOUT CONTRAST CLINICAL HISTORY: Nausea, vomiting, upper abdominal pain COMPARISON STUDY: 06/08/2019 TECHNIQUE: CT scan of the abdomen and pelvis was performed from the lung bases to the proximal femurs. Images are reviewed in the axial, sagittal, and coronal planes. IV contrast was not administered for this examination. A dose lowering technique was utilized adhering to the principles of ALARA. CT DOSE: 492.43 mGy.cm FINDINGS: Lower chest: There is minor subpleural dependent reticulation. There is a trace pericardial effusion. Liver: There is a stable 9 mm right lobe hepatic hypodensity. There is stable mild ductal prominence. Gallbladder: Surgically absent. The common bile duct remains dilated measuring 13 mm. Spleen: Normal in size and attenuation. Pancreas: Unremarkable. Adrenal glands: Unremarkable. Kidneys: No renal, ureteral, or bladder calculi are visualized. Bowel: There are multiple fluid-filled small bowel loops with scattered air- fluid levels. There are scattered colonic air-fluid levels. There are no transition zones indicate bowel obstruction. There is a left lower quadrant diverting colostomy. There is a Contreras's pouch. The appendix appears normal. Peritoneum: There is no intraperitoneal free air or abdominal ascites. Vasculature: The abdominal aorta is normal in course and caliber. Adenopathy: None. Pelvic viscera: The bladder, and pelvic viscera are unremarkable. Skeletal structures: No destructive osseous lesions are seen. IMPRESSION: 1. No evidence of bowel obstruction. No evidence of free air 2. Postsurgical changes of a sigmoid resection with Contreras's pouch and left- sided colostomy 3. No renal, ureteral, or bladder calculi identified 4. Surgically absent gallbladder. Stable common bile duct dilatation. 5. Normal appendix Chest x-ray 1. Elevation the right hemidiaphragm 2. Stable mild left basilar atelectatic change
--- NOTE | 2019-06-13 11:13 | Gastrointestinal Consultation ---
Date of Consultation June 13, 2019 Assessment & Plan (1) Elevated lipase: (2) Elevated LFTs: (3) JAVIER (acute kidney injury): Pt is a 84 y/o female presented w abd pain, n/v symptoms; on eval noted to be hyponatremic, in JAVIER and Lipase, AST/Alk phose are elevated. Non contrasted CT abd/pelvis showed normal pancreas, s/p cholecystectomy status w CBD 13mm (stable). Lipase and LFTs are normalized. Wonder if elevated lipase related to JAVIER instead of truly pancreatitis. She may also have passed biliary stone given rise in AST/Alk phos. Less likely related to new med Colchicine (listed as Class IV for drug induced pancreatitis) - Will obtain MRCP to r/o biliary stone, pancreas divisum, mass/cyst. If any signs of biliary obstruction, plan for ERCP tomorrow. - IVF hydration w LR - Check fasting lipid profile to r/o hypertriglyceridemia - She is not using tobacco or ETOH products - Symptomatic management w analgesics and antiemetics prn Supervising Physician Co-Signing Physician Notes I performed a history and physical examination of the patient today, including specifically on physical exam - soft abdomen. I have discussed the patient's management with the advanced practitioner. Please refer to the nurse practitioner's note for the documented findings and plan of care. Doubt acute pancreatitis, likely hyperlipasemia from CKD/JAVIER. MRCP in view of dilated CBD. History of Present Illness Reason for Consultation: Pancreatitis Requesting Physician: Dr. Eloina Potts Attending Physician: Dr. Tamiko Canales History of Present Illness Pt is a 84 y/o femalw PMHx including HTN, hypothyroidism, GERD, hiatal hernia, perforated colon s/p sigmoid resection and colostomy creation, diverticulosis. Within last 3 weeks, she was admitted for pneumoperitoneum suspected due to diverticulosis treated conservatively; then for pericarditis recently placed on colchicine. She started having epigastric abd pain per H&P report but tells me the pain is diffuse all over associated w n/v. No associated CP, SOB. Ostomy output looser but w/o signs of blood. Cdiff gene positive but toxin negative. Upon eval, labs notable for leukocytosis 19K, H/H normal, Na 124, Cr up from baseline 0.7 ->2.1, LFTs w mild AST, alk phos elevation mid 100s. Lipase 1748. CT abd/pelvis w/o contrast: 1. No evidence of bowel obstruction. No evidence of free air 2. Postsurgical changes of a sigmoid resection with Contreras's pouch and left- sided colostomy 3. No renal, ureteral, or bladder calculi identified 4. Surgically absent gallbladder. Stable common bile duct dilatation. 5. Normal appendix Pt denies other NSAIDs, tobacco, ETOH. She is s/p cholecystectomy. Allergies Allergy/AdvReac Type Severity Reaction Status Date / Time codeine AdvReac Intermediate NAUSEA, Verified 06/12/19 18:36 VOMITING colchicine AdvReac Intermediate GI side Verified 06/12/19 20:55 effects fentanyl AdvReac Intermediate vomiting Verified 06/12/19 18:36 Home Medications Home Medications Medication Instructions Recorded Confirmed Type amlodipine [Norvasc] 5 mg PO QAM 05/26/19 06/12/19 History calcitriol [Rocaltrol] 0.25 mcg PO Q OTHER DAY 05/26/19 06/12/19 History cholecalciferol (vitamin D3) 2,000 unit PO QAM 05/26/19 06/12/19 History [Vitamin D3] famotidine [Pepcid] 40 mg PO BID 05/26/19 06/12/19 History levothyroxine 100 mcg PO QAM 05/26/19 06/12/19 History losartan [Cozaar] 100 mg PO QAM 05/26/19 06/12/19 History metoprolol tartrate [Lopressor] 100 mg PO QAM 05/26/19 06/12/19 History pantoprazole [Protonix] 40 mg PO QPM 05/26/19 06/12/19 History acetaminophen [Tylenol] 325 mg PO QID PRN 06/08/19 06/12/19 History colchicine [Colcrys] 0.6 mg PO BID #30 tab 06/10/19 06/12/19 Rx Lactobacillus acidoph-L.bulgar 4 tab PO TIDM 06/12/19 06/12/19 History [Floranex] Patient History Medical History Colostomy present Diverticulitis of colon with perforation Diverticulosis GERD (gastroesophageal reflux disease) Hiatal hernia HTN (hypertension) (Chronic) Hypothyroidism Surgical History History of cataract surgery History of colostomy Hx of cholecystectomy Family History Sister Breast cancer Coronary heart disease Brother Coronary heart disease Other Hypertension Social History Preferred Language: German Communication Ability: Effective [place] 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 Beliefs That Will Affect Care: None marital status: / Current Living Situation: Alone Other Information That Helps Us Care for You: No Feels Safe at Home: Yes Safety Concerns: Feels Safe At This Time Smoking Status: Never smoker Hx Alcohol Use: No Hx Substance Use: No Review of Systems Review of Systems: All systems reviewed & are unremarkable except as noted in HPI & below Physical Exam Constitutional: WD/WN, vitals as above well groomed, cooperative and comfortable Eyes: PERRL, conjunctivae normal, anicteric sclerae ENMT: external ear and nose normal, oropharynx normal Respiratory: normal respiratory effort, lungs clear to auscultation Cardiovascular: RRR, no murmur, no edema Gastrointestinal (Abdomen): normal bowel sounds, soft, nontender, no hepatosplenomegaly LLQ ostomy w liquid brown stools Skin: no rashes, warm and dry no jaundice Psychiatric: A+Ox3, euthymic affect Lymphatic: no lymphedema Results & Data ([facility]) Vital Signs (Past 12 Hours) Vital Signs Temp Pulse Pulse Resp BP Pulse Ox 06/13/19 07:47 36.4 C L 63 20 107/68 95 06/13/19 07:12 62 06/13/19 03:44 36.3 C L 69 18 108/66 93
[2019-06-13] MEDS ORDERED: LORazepam 0.5 MG TAB PO SCH (11:20)
--- NOTE | 2019-06-13 11:49 | Cardiology Consultation ---
Date of Consultation June 13, 2019 Assessment & Plan (1) Elevated LFTs: (2) Elevated lipase: (3) Pericarditis: (4) Dehydration: The GI service is on the case and plans further testing. From a cardiac standpoint of view she is stable. I also believe she can remain off of the colchicine for now. We will follow with you during her hospital stay. History of Present Illness Attending Physician: Eloina Potts MD History of Present Illness This is an 84-year-old female who was just recently discharged from the hospital. Originally she was admitted with some left upper quadrant left chest discomfort which seem to be paretic in nature. In the emergency department she had a CT of the chest completed which was interpreted by radiology as having a pericardial effusion. The presumptive diagnosis of pericarditis was entertained. Patient had a subsequent echocardiogram that failed to show any significant pericardial effusion or other findings that would suggest pericarditis. The patient did have an elevated sed rate and it was decided to put her on colchicine which did help her discomfort. She was tolerating this medication at discharge. After returning home she developed some nausea and vomiting which lasted for approximately 48 hours before she returned to the emergency department. Labs from the emergency department suggest pancreatitis with a markedly elevated lipase as well as elevated LFTs. The patient was given IV hydration. She is feeling much improved today and interestingly her lipase and LFTs have normalized. This patient has a longstanding history of GI problems. Last year she had diverticulitis which resulted in the need for colostomy. Earlier this year she also had a microperforation which was treated conservatively. She has no significant cardiac history. She is currently pain- free during my interview and feeling well. Allergies Allergy/AdvReac Type Severity Reaction Status Date / Time codeine AdvReac Intermediate NAUSEA, Verified 06/12/19 18:36 VOMITING colchicine AdvReac Intermediate GI side Verified 06/12/19 20:55 effects fentanyl AdvReac Intermediate vomiting Verified 06/12/19 18:36 Home Medications Home Medications Medication Instructions Recorded Confirmed Type amlodipine [Norvasc] 5 mg PO QAM 05/26/19 06/12/19 History calcitriol [Rocaltrol] 0.25 mcg PO Q OTHER DAY 05/26/19 06/12/19 History cholecalciferol (vitamin D3) 2,000 unit PO QAM 05/26/19 06/12/19 History [Vitamin D3] famotidine [Pepcid] 40 mg PO BID 05/26/19 06/12/19 History levothyroxine 100 mcg PO QAM 05/26/19 06/12/19 History losartan [Cozaar] 100 mg PO QAM 05/26/19 06/12/19 History metoprolol tartrate [Lopressor] 100 mg PO QAM 05/26/19 06/12/19 History pantoprazole [Protonix] 40 mg PO QPM 05/26/19 06/12/19 History acetaminophen [Tylenol] 325 mg PO QID PRN 06/08/19 06/12/19 History colchicine [Colcrys] 0.6 mg PO BID #30 tab 06/10/19 06/12/19 Rx Lactobacillus acidoph-L.bulgar 4 tab PO TIDM 06/12/19 06/12/19 History [Floranex] Patient History Medical History Colostomy present Diverticulitis of colon with perforation Diverticulosis GERD (gastroesophageal reflux disease) Hiatal hernia HTN (hypertension) (Chronic) Hypothyroidism Surgical History History of cataract surgery History of colostomy Hx of cholecystectomy Family History Sister Breast cancer Coronary heart disease Brother Coronary heart disease Other Hypertension Social History Preferred Language: Kenyan Communication Ability: Effective 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 Physical Exam Physical Exam: General: no acute distress and stated age Head: normocephalic, no masses, lesions, tenderness or abnormalities Eyes: conjunctiva are pink and non-injected, sclera clear Neck: supple, no adenopathy, no bruits, normal jugular venous pulse, no hepatojugular reflux Chest: normal shape and normal respiratory effort Lungs: clear to auscultation and percussion Cardiac Exam: - regular rate & rhythm, no murmurs gallops or rubs - normal S1, normal S2 Pulses: 2(+) throughout Abdomen: abdomen soft, non-tender, no abnormal masses and no hepatosplenomegaly Musculoskeletal: no gait disturbance, no joint inflammation, no deforming arthritis Extremities: no edema and no cyanosis Neuro: grossly normal exam Results & Data ([facility]) Vital Signs (Past 12 Hours) Vital Signs Temp Pulse Pulse Resp BP Pulse Ox 06/13/19 11:44 36.7 C 63 18 104/68 96 06/13/19 07:47 36.4 C L 63 20 107/68 95 06/13/19 07:12 62 06/13/19 03:44 36.3 C L 69 18 108/66 93 Laboratory Results Laboratory Results - last 24 hr 06/12/19 06/12/19 06/12/19 18:00 18:00 18:00 WBC 19.09 H RBC 4.70 Hgb 13.9 POC Hgb Hct 40.6 POC Hct MCV 86.4 MCH 29.6 MCHC 34.2 RDW Std Deviation 41.4 RDW Coeff of Grecia 12.9 Plt Count 393 MPV 10.1 Immature Gran % (Auto) 0.4 Neut % (Auto) 85.3 Lymph % (Auto) 9.1 Tucker % (Auto) 4.7 Eos % (Auto) 0.3 Baso % (Auto) 0.2 Immature Gran # (Auto) 0.07 H Neut # (Auto) 16.31 H Lymph # (Auto) 1.73 Tucker # (Auto) 0.90 H Eos # (Auto) 0.05 Baso # (Auto) 0.03 POC Sodium Sodium 124 L POC Potassium Potassium 4.5 POC Chloride Chloride 93 L Carbon Dioxide 25 POC Total CO2 Anion Gap 6.0 POC Anion Gap POC BUN BUN 32 H Creatinine 2.15 H POC Creatinine Est Cr Clr Drug Dosing Not Reportable Est GFR ( Amer) 23.9 Est GFR (Non-Af Amer) 20.6 BUN/Creatinine Ratio 14.8 Glucose 136 H POC Glucose (other) Estimat Average Glucose Hemoglobin A1c Osmolality 281 POC Lactic Acid Adrian Lactate Calcium 9.5 POC Ioniz Calcium Kendell Magnesium 2.2 Total Bilirubin 1.0 AST 114 H ALT 66 Alkaline Phosphatase 150 H Troponin I < 0.015 Total Protein 8.6 H Albumin 3.2 L Globulin 5.4 H Albumin/Globulin Ratio 0.6 L Lipase 1748 H Ur Random Creatinine Ur Random Sodium Stl C. diff Tox B Gene Stl C.difficile Tox A&B 06/12/19 06/12/19 06/12/19 18:04 18:08 20:38 WBC RBC Hgb POC Hgb 15.0 Hct POC Hct 44 MCV MCH MCHC RDW Std Deviation RDW Coeff of Grecia Plt Count MPV Immature Gran % (Auto) Neut % (Auto) Lymph % (Auto) Tucker % (Auto) Eos % (Auto) Baso % (Auto) Immature Gran # (Auto) Neut # (Auto) Lymph # (Auto) Tucker # (Auto) Eos # (Auto) Baso # (Auto) POC Sodium 127 L Sodium POC Potassium 4.7 Potassium POC Chloride 93 L Chloride Carbon Dioxide POC Total CO2 25 Anion Gap POC Anion Gap 14.0 L POC BUN 31 H BUN Creatinine POC Creatinine 2.4 H Est Cr Clr Drug Dosing Est GFR ( Amer) Est GFR (Non-Af Amer) BUN/Creatinine Ratio Glucose POC Glucose (other) 143 H Estimat Average Glucose 128 Hemoglobin A1c 6.1 H Osmolality POC Lactic Acid Adrian 1.88 H Lactate Calcium POC Ioniz Calcium Kendell 1.14 Magnesium Total Bilirubin AST ALT Alkaline Phosphatase Troponin I Total Protein Albumin Globulin Albumin/Globulin Ratio Lipase Ur Random Creatinine Ur Random Sodium Stl C. diff Tox B Gene Stl C.difficile Tox A&B 06/12/19 06/13/19 06/13/19 20:38 02:25 02:25 WBC 13.16 H RBC 4.24 Hgb 12.4 POC Hgb Hct 36.2 L POC Hct MCV 85.4 MCH 29.2 MCHC 34.3 RDW Std Deviation 40.0 RDW Coeff of Grecia 12.9 Plt Count 335 MPV 10.0 Immature Gran % (Auto) 0.3 Neut % (Auto) 77.3 Lymph % (Auto) 16.3 Tucker % (Auto) 5.4 Eos % (Auto) 0.5 Baso % (Auto) 0.2 Immature Gran # (Auto) 0.04 H Neut # (Auto) 10.18 H Lymph # (Auto) 2.14 Tucker # (Auto) 0.71 H Eos # (Auto) 0.07 Baso # (Auto) 0.02 POC Sodium Sodium 124 L POC Potassium Potassium 4.8 POC Chloride Chloride 99 Carbon Dioxide 23 POC Total CO2 Anion Gap 2.0 L POC Anion Gap POC BUN BUN 36 H Creatinine 1.95 H POC Creatinine Est Cr Clr Drug Dosing 18.9 Est GFR ( Amer) 26.9 Est GFR (Non-Af Amer) 23.2 BUN/Creatinine Ratio 18.4 Glucose 95 POC Glucose (other) Estimat Average Glucose Hemoglobin A1c Osmolality POC Lactic Acid Adrian Lactate 1.2 Calcium 9.1 POC Ioniz Calcium Kendell Magnesium Total Bilirubin AST ALT Alkaline Phosphatase Troponin I Total Protein Albumin Globulin Albumin/Globulin Ratio Lipase Ur Random Creatinine Ur Random Sodium Stl C. diff Tox B Gene Stl C.difficile Tox A&B 06/13/19 06/13/19 06/13/19 06:36 06:43 11:00 WBC RBC Hgb POC Hgb Hct POC Hct MCV MCH MCHC RDW Std Deviation RDW Coeff of Grecia Plt Count MPV Immature Gran % (Auto) Neut % (Auto) Lymph % (Auto) Tucker % (Auto) Eos % (Auto) Baso % (Auto) Immature Gran # (Auto) Neut # (Auto) Lymph # (Auto) Tucker # (Auto) Eos # (Auto) Baso # (Auto) POC Sodium Sodium 129 L 124 L POC Potassium Potassium 4.6 POC Chloride Chloride 97 L Carbon Dioxide 24 POC Total CO2 Anion Gap 8.0 POC Anion Gap POC BUN BUN 36 H Creatinine 1.84 H POC Creatinine Est Cr Clr Drug Dosing 20.1 Est GFR ( Amer) 28.9 Est GFR (Non-Af Amer) 24.9 BUN/Creatinine Ratio 19.4 Glucose 84 POC Glucose (other) Estimat Average Glucose Hemoglobin A1c Osmolality POC Lactic Acid Adrian Lactate Calcium 9.0 POC Ioniz Calcium Kendell Magnesium Total Bilirubin 0.8 AST 33 ALT 43 Alkaline Phosphatase 111 Troponin I Total Protein 6.5 D Albumin 2.6 L Globulin 3.9 Albumin/Globulin Ratio 0.7 L Lipase 152 Ur Random Creatinine 66.1 Ur Random Sodium Stl C. diff Tox B Gene Stl C.difficile Tox A&B 06/13/19 06/13/19 11:00 Unknown WBC RBC Hgb POC Hgb Hct POC Hct MCV MCH MCHC RDW Std Deviation RDW Coeff of Grecia Plt Count MPV Immature Gran % (Auto) Neut % (Auto) Lymph % (Auto) Tucker % (Auto) Eos % (Auto) Baso % (Auto) Immature Gran # (Auto) Neut # (Auto) Lymph # (Auto) Tucker # (Auto) Eos # (Auto) Baso # (Auto) POC Sodium Sodium POC Potassium Potassium POC Chloride Chloride Carbon Dioxide POC Total CO2 Anion Gap POC Anion Gap POC BUN BUN Creatinine POC Creatinine Est Cr Clr Drug Dosing Est GFR ( Amer) Est GFR (Non-Af Amer) BUN/Creatinine Ratio Glucose POC Glucose (other) Estimat Average Glucose Hemoglobin A1c Osmolality POC Lactic Acid Adrian Lactate Calcium POC Ioniz Calcium Kendell Magnesium Total Bilirubin AST ALT Alkaline Phosphatase Troponin I Total Protein Albumin Globulin Albumin/Globulin Ratio Lipase Ur Random Creatinine Ur Random Sodium 20 Stl C. diff Tox B Gene Positive Cdiff Gene H Stl C.difficile Tox A&B Negative Cdiff Toxin Medications Administered Current Inpatient Medications Acetaminophen (Tylenol) 325 mg PO QID PRN PRN Reason: Pain Stop: 07/12/19 22:36 Amlodipine Besylate (Norvasc) 5 mg PO QAM [facility] Stop: 07/13/19 08:59 Last Admin: 06/13/19 08:35 Dose: 5 mg Documented by: Famotidine (Pepcid) 20 mg PO BID [facility] Stop: 07/12/19 22:59 Last Admin: 06/13/19 08:36 Dose: 20 mg Documented by: Heparin Sodium (Porcine) (Heparin Sodium (Porcine)) 5,000 units SQ Q8 FUAD Stop: 07/12/19 22:59 Last Admin: 06/13/19 05:54 Dose: 5,000 units Documented by: Hydromorphone HCl (Dilaudid) 0.25 mg IV Q3H PRN PRN Reason: Pain Stop: 06/26/19 22:36 Promethazine HCl 12.5 mg/ (Sodium Chloride) 50.5 mls @ 202 mls/hr IV Q6H PRN PRN Reason: Nausea And Vomiting Stop: 07/12/19 20:19 Lactated Ringer's (Lr) 1,000 mls @ 100 mls/hr IV .Q10H [facility] Stop: 07/12/19 22:36 Last Admin: 06/13/19 08:37 Dose: 150 mls/hr Documented by: Lactobacillus Acidophilus (Floranex) 4 tab PO TIDM [facility] Stop: 07/13/19 07:59 Last Admin: 06/13/19 08:36 Dose: 4 tab Documented by: Levothyroxine Sodium (Synthroid) 100 mcg PO DAILYBB [facility] Stop: 07/13/19 06:29 Last Admin: 06/13/19 05:53 Dose: 100 mcg Documented by: Lorazepam (Ativan) 0.5 mg PO TODAY@1120 [facility] Stop: 06/13/19 18:00 Metoprolol Tartrate (Lopressor) 100 mg PO QAM [facility] Stop: 07/13/19 08:59 Last Admin: 06/13/19 08:36 Dose: 100 mg Documented by: Oxycodone HCl (Roxicodone Immediate Rel) 5 mg PO Q4H PRN PRN Reason: Pain Stop: 06/26/19 22:36 Pantoprazole Sodium (Protonix) 40 mg PO QPM [facility] Stop: 07/13/19 20:59
--- NOTE | 2019-06-13 13:27 | Hospitalist Progress Note ---
Date of Service June 13, 2019 Assessment & Plan (1) Acute pancreatitis: presents to ED secondary to epigastric pain and nausea x2 days. symptoms as resolved completely appreciate input from GI ordered for MRCP (2) Acute hyponatremia: Na 124 appreciate input from Nephrology cont IV fluid follow BMP closely DIARRHEA /LOOSE STOOL: multiple episodes of loose watery bowel movements no abdominal pain recent tx with PO Antibiotic Augmentin for 10 days for diverticulitis leukocytosis WBC 19k noted on admission stool C diff gene + ( possible carrier state ) toxin assay negative ordered for contact isolation will tx empirically with PO Vanco (3) Leukocytosis: wbc 19k was normal on discharge possible 2/2 to pancreatitis refer to Dr. Taylor addendum for further plan (4) JAVIER (acute kidney injury): baseline cr 0.7 bun/cr 32 and 2.15 like in setting of NSAID use/hypovolemia due to po po intake continue IVF nephrology following (5) Pneumoperitoneum: s/p hospitalization 05/25 to 05/27 [place] likely secondary to diverticulosis Treated conservatively and finished 10-day course of Augmentin (6) Perforation of intestine due to diverticulitis of gastrointestinal tract: 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 Colostomy care (7) Pericarditis: Recently admitted 06/07 to 06/09 secondary to left-sided chest pain Found to have pericardial effusion Echo on 06/08 revealed EF 65 to 70%, grade 1 diastolic dysfunction, pericardial effusion Symptoms felt likely secondary to acute pericarditis Placed on colchicine onl hold secondary to JAVIER and pancreatitis Consult cardiology for further input (8) HTN (hypertension): blood pressure controlled continue amlodipine hold losartan given JAVIER (9) Hypothyroidism: continue levothyroxine (10) GERD (gastroesophageal reflux disease): continue PPI and famotidine hx of Hiatal hernia as well (11) DVT prophylaxis: Disposition: will be discharged home when medically stable Follow up: PCP Dr. Nicholas upon discharge Admission and Anticipated Discharge Date Admission Date: June 12, 2019 Subjective sitting up on edge of bed very pleasant , continues to have frequent loose watery bowel movements no complain of abdominal pain no cough no SOB no fever or chills Review of Systems Review of Systems: All systems reviewed & are unremarkable except as noted in HPI & below Constitutional: no fever, no chills, no fatigue, no weakness and no anorexia Respiratory: no cough, no dyspnea, no sputum production and no wheezing Cardiovascular: no chest pain, no palpitations, no lightheadedness, no syncope and no edema Gastrointestinal: + diarrhea/loose stools; no abdominal pain, no nausea and no vomiting Genitourinary: no dysuria and no urinary hesitancy Physical Exam Constitutional: WD/WN, vitals as above no acute distress Eyes: PERRL, conjunctivae normal, anicteric sclerae ENMT: external ear and nose normal, oropharynx normal Neck: trachea midline, no thyromegaly Respiratory: normal respiratory effort, lungs clear to auscultation Cardiovascular: RRR, no murmur, no edema Gastrointestinal (Abdomen): normal bowel sounds, soft, nontender, no hepatosplenomegaly Musculoskeletal: no cyanosis or clubbing, extremities motor strength 5/5 Skin: no rashes, warm and dry Neurologic: PERRL, EOMI, accommodation nl, no face palsy, no dysarthria Psychiatric: A+Ox3, euthymic affect Results & Data Results & Data ([facility]) Vital Signs (Past 12 Hours) Vital Signs Temp Pulse Pulse Resp BP Pulse Ox 06/13/19 11:44 36.7 C 63 18 104/68 96 06/13/19 07:47 36.4 C L 63 20 107/68 95 06/13/19 07:12 62 06/13/19 03:44 36.3 C L 69 18 108/66 93 (1) Acute pancreatitis Acute pancreatitis complication: unspecified Pancreatitis type: unspecified pancreatitis type Qualified Code(s): K85.90 - Acute pancreatitis without necrosis or infection, unspecified
--- NOTE | 2019-06-13 14:18 | Electrocardiogram Report ---
Test Reason : Blood Pressure : / mmHG Vent. Rate : 069 BPM Atrial Rate : 069 BPM P-R Int : 208 ms QRS Dur : 132 ms QT Int : 412 ms P-R-T Axes : 002 -09 -19 degrees QTc Int : 441 ms Poor data quality, interpretation may be adversely affected Sinus rhythm with 1st degree A-V block Right bundle branch block Minimal voltage criteria for LVH, may be normal variant Abnormal ECG When compared with ECG of 08-JUN-2019 13:44, Nonspecific T wave abnormality now evident in Anterolateral leads Confirmed by Lawrence Pinto ([id number]) on 06/13/2019 2:18:09 PM Referred By: REFERRED SELF Confirmed By:Lawrence Pinto
[2019-06-13] MEDS: VANCOMYCIN HCL 125 MG/2.5ML SOLN PO SCH ×3 (14:28→21:07)
[2019-06-13] MEDS: RASPBERRY SYRUP 5 ML UDP PO SCH ×3 (14:28→21:08)
--- NOTE | 2019-06-13 16:28 | Magnetic Resonance Report ---
Study: MRCP HISTORY: Pain. Nausea. COMPARISON: CT abdomen pelvis 06/12/2019 FINDINGS: Unchanged chronic biliary ductal distention. This is unaltered as compared to the prior talita dy. Bowel pattern within limitations of this exam is nonobstructive. No evidence for choledocholithia sis. Kidneys negative for hydronephrosis. No evidence for pancreatic duct distention. Signal characteristics of the bony structures are unremarkable. No significant upper abdominal adenop athy. IMPRESSION: 1. Prior cholecystectomy. 2. Chronic biliary ductal distention. 3. No evidence for choledocholithiasis. 4. No significant additional information compared to the prior CT study. Electronically signed by: Reji Colin M.D. 06/13/2019 4:27 PM
[2019-06-13] MEDS: PANTOprazole 40 MG TAB PO SCH (21:07)
[2019-06-14] MEDS: LACTATED RINGER'S 1,000 ML IV SCH ×2 (02:54→11:41)
[2019-06-14] MEDS: HEPARIN SOD 5,000 UNIT/0.5 ML VIAL SQ SCH ×3 (05:43→20:21)
[2019-06-14] MEDS: LEVOTHYROXINE SODIUM 100 MCG TABLET PO SCH (05:43)
[2019-06-14 06:38] LABS: BUN Creatinine Ratio 22.6 (10-20); Calcium 8.8 mg/dl (8.5-10.1); Creatinine Clr Calc Pharmacy 30.8 ml/min; Est GFR (African American) 48.4; Est GFR (Non-African American) 41.8; Potassium 4.2 mmol/L (3.5-5.1)
[2019-06-14] MEDS: VANCOMYCIN HCL 125 MG/2.5ML SOLN PO SCH ×4 (07:56→20:20)
[2019-06-14] MEDS: RASPBERRY SYRUP 5 ML UDP PO SCH ×4 (07:57→20:20)
[2019-06-14] MEDS: FAMOTIDINE 20 MG TAB PO SCH ×2 (07:57→20:21)
[2019-06-14] MEDS: LACTOBACILLUS ACIDOPHILUS (FLORANEX) TAB PO SCH ×3 (07:59→16:29)
[2019-06-14] MEDS: AMLODIPINE BESYLATE 5 MG TAB PO SCH (08:00)
[2019-06-14] MEDS: METOPROLOL TARTRATE 100 MG TAB PO SCH (08:00)
--- NOTE | 2019-06-14 09:06 | Nephrology Progress Note ---
Date of Service June 14, 2019 Assessment & Plan (1) Acute hyponatremia: hypovolemic hypotonic hyponatremia, improving at acceptable rate and now nearly resolved. Potassium is in normal limits.. No indication for further urine studies at this time. corrected at acceptable rate At this point, recommend resuming low rate of LR as tolerated from renal standpoint even that she is not taking much p.o. Continue lactated Ringer's at as low an hourly rate as possible No need to recheck serum chemistries before tomorrow at least from renal standpoint (2) JAVIER (acute kidney injury): Prior creatinine had been 0.8 as recently as June 08. Presenting creatinine June 11 was 2.2; improved further to 1.2 on labs this morning. Prerenal acute kidney injury in the setting of pancreatitis, nonoliguric and improving. Note she has not had any NSAIDs. Clinically improving but still borderline hypotensive Continue to avoid nephrotoxins Continue to hold Cozaar and hold parameters on other blood pressure medications as well if not already there Lactated Ringer's as above Will need renal clinic follow-up at discharge Admission and Anticipated Discharge Date Admission Date: June 12, 2019 Subjective Feels tired still with some abdominal pain and poor p.o. intake. No nausea. Ongoing copious watery ostomy output. No dyspnea. No voiding concerns MRCP and lipase reassuring this is not pancreatitis. Review of Systems Review of Systems: All systems reviewed & are unremarkable except as noted in HPI & below Physical Exam Constitutional: well developed and well nourished; no acute distress On room air, maneuvers readily for exam Eyes: EOM intact bilaterally ENMT: Ears: no external ear abnormality Nose: no external nose abnormality Mouth: + dry oral mucous membranes Neck: no nuchal rigidity Respiratory: normal respiratory effort; no cough Auscultation: + diminished lung sounds and + crackles (Fine end inspiratory); + lungs not clear to auscultation Cardiovascular: RRR, no murmur, no edema Gastrointestinal (Abdomen): Inspection/Auscultation: normal bowel sounds Percussion/Palpation: abdomen soft; abdomen nontender Musculoskeletal: Extremities: strength 5/5 throughout Skin: no rashes, warm and dry Neurologic: Moves all extremities, fluent speech, clearly a bit more tired than yesterday but not toxic Psychiatric: A+Ox3, euthymic affect Results & Data ([place]) Vital Signs (Past 12 Hours) Vital Signs Temp Pulse Pulse Resp BP BP Pulse Ox 06/14/19 07:06 37.0 C 89 18 117/73 94 06/14/19 00:27 66 06/13/19 23:20 36.5 C 75 19 115/70 95 Laboratory Results 06/13/19 02:25 06/14/19 05:25
--- NOTE | 2019-06-14 09:51 | Gastroenterology Progress Note ---
Date of Service June 14, 2019 Assessment & Plan (1) Elevated lipase: (2) Elevated LFTs: (3) JAVIER (acute kidney injury): Pt is a 84 y/o female presented w abd pain, n/v symptoms; on eval noted to be hyponatremic, in JAVIER and Lipase, AST/Alk phose are elevated. Non contrasted CT abd/pelvis showed normal pancreas, s/p cholecystectomy status w CBD 13mm (stable). Lipase and LFTs are normalized. Wonder if elevated lipase related to JAVIER instead of truly pancreatitis. She may also have passed biliary stone given rise in AST/Alk phos. Less likely related to new med Colchicine (listed as Class IV for drug induced pancreatitis) MRCP obtained due to dilated bile duct, no signs of choledocholithiasis noted. She is currently tolerating regular diet w/o abd pain, + mild nausea controlled w antiemetics. She is still having watery stool output via ostomy. Cdiff gene positive, toxin negative; placed on Vancomycin by hospitalist for empiric treatment given her recent antibx exposures. - Stop IVF - Continue Vancomycin 125mg QID x 14 days - Low fat diet - Plan for outpt EUS eval in 4-6 week's time - Symptomatic management w analgesics and antiemetics prn - Please recall GI prn Admission and Anticipated Discharge Date Admission Date: June 12, 2019 Supervising Physician Co-Signing Physician Notes I performed a history and physical examination of the patient today, including specifically on physical exam - soft abdomen. I have discussed the patient's management with the advanced practitioner. Please refer to the nurse practition er's note for the documented findings and plan of care. EUS as OP Subjective Pt reports having nausea but controlled w meds, seen eating regular breakfast this AM. Still having water stools output from ostomy. Denies abd pain. Review of Systems Review of Systems: All systems reviewed & are unremarkable except as noted in HPI & below Physical Exam Constitutional: WD/WN, vitals as above well groomed, cooperative and comfortable Eyes: PERRL, conjunctivae normal, anicteric sclerae ENMT: external ear and nose normal, oropharynx normal Respiratory: normal respiratory effort, lungs clear to auscultation Cardiovascular: RRR, no murmur, no edema Gastrointestinal (Abdomen): normal bowel sounds, soft, nontender, no hepatosplenomegaly LLQ ostomy w liquid dark green stool Skin: no rashes, warm and dry no jaundice Psychiatric: A+Ox3, euthymic affect Lymphatic: no lymphedema Results & Data ([facility]) Vital Signs (Past 12 Hours) Vital Signs Temp Pulse Pulse Resp BP BP Pulse Ox 06/14/19 08:00 75 06/14/19 07:06 37.0 C 89 18 117/73 94 06/14/19 00:27 66 06/13/19 23:20 36.5 C 75 19 115/70 95
--- NOTE | 2019-06-14 12:09 | Cardiology Progress Note ---
Date of Service June 14, 2019 Assessment & Plan (1) Elevated LFTs: (2) Elevated lipase: (3) Pericarditis: (4) Dehydration: The patient is doing well. I would not restart colchicine or other treatment for pancreatitis at this time. Clinically she is better. Nephrology and the GI service help is appreciated. Subjective The patient states she is feeling better. She has had no chest pain since admission. Review of Systems Review of Systems: All systems reviewed & are unremarkable except as noted in HPI & below Nothing additional to add. Physical Exam Physical Exam: General: no acute distress and stated age Head: normocephalic, no masses, lesions, tenderness or abnormalities Eyes: conjunctiva are pink and non-injected, sclera clear Neck: supple, no adenopathy, no bruits, normal jugular venous pulse, no hepatojugular reflux Chest: normal shape and normal respiratory effort Lungs: clear to auscultation and percussion Cardiac Exam: - regular rate & rhythm, no murmurs gallops or rubs - normal S1, normal S2 Pulses: 2(+) throughout Abdomen: abdomen soft, non-tender, no abnormal masses and no hepatosplenomegaly Musculoskeletal: no gait disturbance, no joint inflammation, no deforming arthritis Extremities: no edema and no cyanosis Neuro: grossly normal exam Results & Data Vital Signs (Past 12 Hours) Vital Signs Temp Pulse Pulse Resp BP Pulse Ox 06/14/19 11:19 37.2 C 69 18 104/65 93 06/14/19 08:00 75 06/14/19 07:06 37.0 C 89 18 117/73 94 06/14/19 00:27 66 Laboratory Results Laboratory Results - last 24 hr 06/13/19 06/14/19 11:48 05:25 Sodium 129 L 133 L Potassium 4.2 Chloride 102 Carbon Dioxide 25 Anion Gap 6.0 BUN 27 H Creatinine 1.20 D Est Cr Clr Drug Dosing 30.8 Est GFR ( Amer) 48.4 Est GFR (Non-Af Amer) 41.8 BUN/Creatinine Ratio 22.6 H Glucose 91 Calcium 8.8 Triglycerides 144 Cholesterol 123 LDL Cholesterol, Calc 62 VLDL Cholesterol, Calc 29 HDL Cholesterol 32 Cholesterol/HDL Ratio 4 Medications Administered Current Inpatient Medications Acetaminophen (Tylenol) 325 mg PO QID PRN PRN Reason: Pain Stop: 07/12/19 22:36 Amlodipine Besylate (Norvasc) 5 mg PO QAM [facility] Stop: 07/13/19 08:59 Last Admin: 06/14/19 08:00 Dose: 5 mg Documented by: Famotidine (Pepcid) 20 mg PO BID [facility] Stop: 07/12/19 22:59 Last Admin: 06/14/19 07:57 Dose: 20 mg Documented by: Heparin Sodium (Porcine) (Heparin Sodium (Porcine)) 5,000 units SQ Q8 FUAD Stop: 07/12/19 22:59 Last Admin: 06/14/19 05:43 Dose: 5,000 units Documented by: Promethazine HCl 12.5 mg/ (Sodium Chloride) 50.5 mls @ 202 mls/hr IV Q6H PRN PRN Reason: Nausea And Vomiting Stop: 07/12/19 20:19 Last Infusion: 06/14/19 04:44 Dose: Infused Documented by: Lactated Ringer's (Lr) 1,000 mls @ 50 mls/hr IV .Q20H [facility] Stop: 07/14/19 11:14 Last Admin: 06/14/19 11:41 Dose: 50 mls/hr Documented by: Lactobacillus Acidophilus (Floranex) 4 tab PO TIDM [facility] Stop: 07/13/19 07:59 Last Admin: 06/14/19 11:41 Dose: 4 tab Documented by: Levothyroxine Sodium (Synthroid) 100 mcg PO DAILYBB [facility] Stop: 07/13/19 06:29 Last Admin: 06/14/19 05:43 Dose: 100 mcg Documented by: Metoprolol Tartrate (Lopressor) 100 mg PO QAM [facility] Stop: 07/13/19 08:59 Last Admin: 06/14/19 08:00 Dose: 100 mg Documented by: Oxycodone HCl (Roxicodone Immediate Rel) 5 mg PO Q4H PRN PRN Reason: Pain Stop: 06/26/19 22:36 Pantoprazole Sodium (Protonix) 40 mg PO QPM [facility] Stop: 07/13/19 20:59 Last Admin: 06/13/19 21:07 Dose: 40 mg Documented by: Raspberry (Raspberry) 5 ml PO QID [facility] Stop: 06/27/19 13:59 Last Admin: 06/14/19 07:57 Dose: 5 ml Documented by: Vancomycin HCl (Vancomycin Hcl) 125 mg PO QID FUAD Stop: 06/23/19 13:59 Last Admin: 06/14/19 07:56 Dose: 125 mg Documented by:
--- NOTE | 2019-06-14 13:10 | Hospitalist Progress Note ---
Date of Service June 14, 2019 Assessment & Plan (1) Acute pancreatitis: presents to ED secondary to epigastric pain and nausea x2 days. 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15 like in setting of NSAID use/hypovolemia due to po po intake continue IVF nephrology following (5) Pneumoperitoneum: s/p hospitalization 05/25 to 05/27 likely secondary to diverticulosis Treated conservatively and finished 10-day course of Augmentin on PO vanco for possible Chronic C diff (6) Perforation of intestine due to diverticulitis of gastrointestinal tract: 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 Colostomy care (7) Pericarditis: Recently admitted 06/07 to 06/09 secondary to left-sided chest pain Found to have pericardial effusion Echo on 06/08 revealed EF 65 to 70%, grade 1 diastolic dysfunction, pericardial effusion Symptoms felt likely secondary to acute pericarditis was treated with colchicine onl hold secondary to JAVIER and pancreatitis Consulted cardiology : no further tx with Colchicine needed (8) HTN (hypertension): blood pressure controlled continue amlodipine hold losartan given JAVIER (9) Hypothyroidism: continue levothyroxine (10) GERD (gastroesophageal reflux disease): continue PPI and famotidine hx of Hiatal hernia as well (11) DVT prophylaxis: Disposition: will be discharged home when medically stable Follow up: PCP Dr. Nicholas upon discharge Admission and Anticipated Discharge Date Admission Date: June 12, 2019 Subjective complains of feeling nauseous very poor appetite having ongoing diarrhea /loose stool output through colostomy with abdominal bloating no pain or abdominal cramps no blood in stool no cough or SOB no fever or chills Review of Systems Gastrointestinal: + bloating, + nausea, + diarrhea/loose stools and + problem reported (poor appetite ) Physical Exam Constitutional: WD/WN, vitals as above no acute distress Eyes: PERRL, conjunctivae normal, anicteric sclerae ENMT: external ear and nose normal, oropharynx normal Neck: trachea midline, no thyromegaly Respiratory: normal respiratory effort, lungs clear to auscultation Cardiovascular: RRR, no murmur, no edema Gastrointestinal (Abdomen): normal bowel sounds, soft, nontender, no hepatosplenomegaly Musculoskeletal: no cyanosis or clubbing, extremities motor strength 5/5 Skin: no rashes, warm and dry Neurologic: PERRL, EOMI, accommodation nl, no face palsy, no dysarthria Psychiatric: A+Ox3, euthymic affect Results & Data Results & Data ([facility]) Vital Signs (Past 12 Hours) Vital Signs Temp Pulse Pulse Resp BP Pulse Ox 06/14/19 11:19 37.2 C 69 18 104/65 93 06/14/19 08:00 75 06/14/19 07:06 37.0 C 89 18 117/73 94 (1) Acute pancreatitis Acute pancreatitis complication: unspecified Pancreatitis type: unspecified pancreatitis type Qualified Code(s): K85.90 - Acute pancreatitis without necrosis or infection, unspecified
[2019-06-14] MEDS: ONDANSETRON INJ 2 MG/ML 2 ML VIAL IV PRN (16:29)
[2019-06-14] MEDS: PANTOprazole 40 MG TAB PO SCH (20:20)
[2019-06-15] MEDS: ACETAMINOPHEN 325 MG TAB PO PRN ×2 (01:04→14:32)
[2019-06-15] MEDS: ONDANSETRON INJ 2 MG/ML 2 ML VIAL IV PRN ×4 (03:13→21:07)
[2019-06-15] MEDS: HEPARIN SOD 5,000 UNIT/0.5 ML VIAL SQ SCH ×2 (06:08→14:23)
[2019-06-15] MEDS: LEVOTHYROXINE SODIUM 100 MCG TABLET PO SCH (06:08)
[2019-06-15 06:10] LABS: Hematocrit (blood only) 41.7 % (37-47); Hemoglobin 14.6 g/dL (12.0-16.0); Mean Corpuscular Hemoglobin 29.8 pg (25-34); Mean Corpuscular Volume 85.1 fL (80-100); Mean Platelet Volume 10.1 fL (7.4-10.4); Platelet Count 407 K/uL (130-400); RDW Coefficient of Variation 12.7 % (11.5-14.5); RDW Standard Deviation 39.6 fL (36.4-46.3); White Blood Count 8.96 K/uL (4.8-10.8)
[2019-06-15 06:54] LABS: BUN Creatinine Ratio 12.1 (10-20); Calcium 10.3 mg/dl (8.5-10.1); Est GFR (African American) 20.3; Est GFR (Non-African American) 17.5; Potassium 3.8 mmol/L (3.5-5.1)
[2019-06-15] MEDS: LACTATED RINGER'S 1,000 ML IV SCH ×2 (07:36→16:16)
[2019-06-15] MEDS: LACTOBACILLUS ACIDOPHILUS (FLORANEX) TAB PO SCH ×4 (07:38→16:33)
--- NOTE | 2019-06-15 09:27 | Nephrology Progress Note ---
Date of Service June 15, 2019 Assessment & Plan (1) Acute hyponatremia: hypovolemic hypotonic hyponatremia, initially improved at acceptable rate and nearly resolved then dropped 10 points abruptly last 24 hrs. Potassium is in normal limits.. No indication for further urine studies at this time. corrected at acceptable rate At this point, recommend resuming 150 mL hourly rate of LR as tolerated since she is not taking much p.o. We will recheck labs at 1400; so ordered (2) JAVIER (acute kidney injury): Prior creatinine had been 0.8 as recently as June 08. Presenting creatinine June 11 was 2.2; improved further to 1.2 on June 13, now rebounded to 2.5 today. Prerenal acute kidney injury in the setting of copious diarrhea and poor p.o. intake, nonoliguric and improving. Note she has not had any NSAIDs. Clinically improving but still borderline hypotensive Continue to avoid nephrotoxins Continue to hold Cozaar and other blood pressure meds on hold as well Lactated Ringer's as above Will need renal clinic follow-up at discharge Admission and Anticipated Discharge Date Admission Date: June 12, 2019 Subjective She has had copious watery ostomy output and feels exhausted, endorses presyncopal symptoms with standing, no shortness of breath, no voiding symptoms except to report decreased urine output. She states that the smell of food makes her nauseous. Has eaten a small amount today (midday when I saw her) and ate almost nothing yesterday Review of Systems Review of Systems: All systems reviewed & are unremarkable except as noted in HPI & below Gastrointestinal: Does state that she had periumbilical pain going to her back earlier in the day but none now Physical Exam Constitutional: well developed, well nourished and + lethargic (Fatigued); no acute distress Eyes: EOM intact bilaterally ENMT: Ears: no external ear abnormality Nose: no external nose abnormality Mouth: + dry oral mucous membranes Neck: no nuchal rigidity Respiratory: normal respiratory effort; no cough Auscultation: + diminished lung sounds and + crackles (Fine end inspiratory); + lungs not clear to auscultation Cardiovascular: RRR, no murmur, no edema Gastrointestinal (Abdomen): Inspection/Auscultation: normal bowel sounds Percussion/Palpation: abdomen soft; abdomen nontender Musculoskeletal: Extremities: strength 5/5 throughout Skin: no rashes, warm and dry Psychiatric: A+Ox3, euthymic affect Results & Data ([facility]) Vital Signs (Past 12 Hours) Vital Signs Temp Pulse Resp BP Pulse Ox 06/15/19 08:08 36.6 C 90 17 110/73 92 06/14/19 22:30 36.7 C 75 18 114/69 92 Laboratory Results 06/15/19 05:59 06/15/19 05:59
[2019-06-15] MEDS: AMLODIPINE BESYLATE 5 MG TAB PO SCH (09:58)
[2019-06-15] MEDS: METOPROLOL TARTRATE 100 MG TAB PO SCH (09:58)
[2019-06-15] MEDS: FAMOTIDINE 20 MG TAB PO SCH ×3 (09:58→20:10)
[2019-06-15] MEDS: RASPBERRY SYRUP 5 ML UDP PO SCH ×4 (09:59→20:10)
[2019-06-15] MEDS: VANCOMYCIN HCL 125 MG/2.5ML SOLN PO SCH ×4 (09:59→20:10)
[2019-06-15] MEDS ORDERED: SODIUM CHLORIDE 0.9% 1000ML 250 ML IV ONE ×2 (10:15→21:39)
[2019-06-15 15:27] LABS: BUN Creatinine Ratio 10.7 (10-20); Calcium 9.6 mg/dl (8.5-10.1); Creatinine Clr Calc Pharmacy 11.8 ml/min; Est GFR (African American) 15.1; Est GFR (Non-African American) 13.1; Potassium 3.6 mmol/L (3.5-5.1)
--- NOTE | 2019-06-15 18:11 | Hospitalist Progress Note ---
Date of Service June 15, 2019 Assessment & Plan (1) Diarrhea: having large amount of liquid BM /output noted in colostomy bag > 1 liter pt complains of nausea /poor appetite /abdominal bloating on PO vanco dose increased added Flaglyl repeat CT abdomen /pelvis in am Lactinex SEVERE DEHYDRATION , ATN /OLIGURIC ; due to ongoing GI loss Freeman placed, very minimum urine out put noted repeat labs reviewed : Cr wosened to ~3 ordered for IV fluid bolus , increased IV fluid rate to 200 ml/hr (2) Acute pancreatitis: resolved presents to ED secondary to epigastric pain and nausea x2 days. symptoms as resolved completely lipase level normalized appreciate input from GI MRCP : no gall bladder pathology recommends to advance diet out pt EUS in 4-6 weeks (3) Acute hyponatremia: continued to have GI loss with high colostomy out put with liquid stool causing dehydration ordered for IV fluid will change to NSS follow BMP Nephrology consulted -appreciate input (4) JAVIER (acute kidney injury): due to ongoing GI loss causing dehydration increased IVF , nephrology following (5) Perforation of intestine due to diverticulitis of gastrointestinal tract: 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 abdomen /pelvis this admission was unremarkable repeat CT scan ordered for ongoing diarrhea (6) Pericarditis: Recently admitted 06/07 to 06/09 secondary to left-sided chest pain Found to have pericardial effusion Echo on 06/08 revealed EF 65 to 70%, grade 1 diastolic dysfunction, pericardial effusion Symptoms felt likely secondary to acute pericarditis was treated with colchicine onl hold secondary to JAVIER and pancreatitis Consulted cardiology : no further tx with Colchicine needed (7) HTN (hypertension): BP on lower side due to dehydration with on going GI loss /loose stool hold all antihypertensives pt is getting IV fluid bolus (8) Hypothyroidism: continue levothyroxine (9) GERD (gastroesophageal reflux disease): continue PPI and famotidine (10) DVT prophylaxis: Disposition: will be discharged home when medically stable ordered for PT/OT eval Follow up: PCP Dr. Nicholas upon discharge update given to daughter over phone Admission and Anticipated Discharge Date Admission Date: June 12, 2019 Subjective continues to have ongoing watery loose bowel movement feels exhaused very poor appetite complains of generalized abdominal pain low urine out put noted afebrile , no cough or SOB Review of Systems Review of Systems: All systems reviewed & are unremarkable except as noted in HPI & below Gastrointestinal: + abdominal pain, + bloating, + nausea and + diarrhea/loose stools Physical Exam Constitutional: WD/WN, vitals as above no acute distress Eyes: PERRL, conjunctivae normal, anicteric sclerae ENMT: external ear and nose normal, oropharynx normal Neck: trachea midline, no thyromegaly Respiratory: normal respiratory effort, lungs clear to auscultation Cardiovascular: RRR, no murmur, no edema Gastrointestinal (Abdomen): Percussion/Palpation: + abdomen tender (on lower abdomen ) and abdomen soft Musculoskeletal: no cyanosis or clubbing, extremities motor strength 5/5 Skin: no rashes, warm and dry Neurologic: PERRL, EOMI, accommodation nl, no face palsy, no dysarthria Psychiatric: A+Ox3, euthymic affect Results & Data Results & Data ([facility]) Vital Signs (Past 12 Hours) Vital Signs Temp Pulse Pulse Resp BP BP Pulse Ox 06/15/19 15:34 36.5 C 72 16 133/71 91 06/15/19 11:40 36.6 C 90 18 122/56 L 91 06/15/19 08:08 36.6 C 90 17 110/73 92 (1) Diarrhea Diarrhea type: unspecified type Qualified Code(s): R19.7 - Diarrhea, uns pecified (2) Acute pancreatitis Acute pancreatitis complication: unspecified Pancreatitis type: unspecified pancreatitis type Qualified Code(s): K85.90 - Acute pancreatitis without necrosis or infection, unspecified
[2019-06-15] MEDS: PANTOprazole 40 MG TAB PO SCH (20:10)
[2019-06-15] MEDS: metroNIDAZOLE 500 MG/100 ML BAG IV SCH (21:12)
[2019-06-15 21:31] LABS: Basophils # (auto) 0.03 K/uL (0-0.2); Basophils % (auto) 0.4 %; Eosinophils # (auto) 0.02 K/uL (0-0.5); Eosinophils % (auto) 0.3 %; Hematocrit (blood only) 41.2 % (37-47); Hemoglobin 14.5 g/dL (12.0-16.0); Immature Granulocytes # (auto) 0.02 K/uL (0.00-0.02); Immature Granulocytes % (auto) 0.3 %; Lymphocytes # (auto) 1.25 K/uL (1.2-3.4); Lymphocytes % (auto) 18.6 %; Mean Corpuscular Hemoglobin 29.6 pg (25-34); Mean Corpuscular Volume 84.1 fL (80-100); Mean Platelet Volume 10.2 fL (7.4-10.4); Monocytes # (auto) 1.07 K/uL (0.11-0.59); Monocytes % (auto) 15.9 %; Neutrophils # (auto) 4.34 K/uL (1.4-6.5); Neutrophils % (auto) 64.5 %; Platelet Count 400 K/uL (130-400); RDW Coefficient of Variation 12.8 % (11.5-14.5); White Blood Count 6.73 K/uL (4.8-10.8)
[2019-06-15 21:48] LABS: Albumin Level 3.2 gm/dl (3.4-5.0); BUN Creatinine Ratio 9.1 (10-20); Calcium 9.9 mg/dl (8.5-10.1); Creatinine Clr Calc Pharmacy 10.1 ml/min; Est GFR (African American) 12.5; Est GFR (Non-African American) 10.8; Potassium 3.5 mmol/L (3.5-5.1)
[2019-06-15 21:50] LABS: Mean Corpuscular Hgb Conc 35.2 g/dL (32-36)
[2019-06-15 21:55] LABS: Albumin Globulin Ratio 0.6 (0.9-2); Bilirubin,Total 0.7 mg/dl (0.2-1); Globulin 5.3 gm/dl (2.5-4.0); Total Protein 8.5 gm/dl (6.4-8.2)
[2019-06-16] MEDS: SODIUM CHLORIDE 0.9% 1000ML 1,000 ML IV SCH ×2 (04:28)
[2019-06-16] MEDS: LEVOTHYROXINE SODIUM 100 MCG TABLET PO SCH (05:48)
[2019-06-16 07:06] LABS: Calcium 8.6 mg/dl (8.5-10.1); Creatinine Clr Calc Pharmacy 9.8 ml/min; Est GFR (African American) 12.3; Est GFR (Non-African American) 10.6
[2019-06-16] MEDS: LACTOBACILLUS ACIDOPHILUS (FLORANEX) TAB PO SCH ×3 (08:46→17:26)
[2019-06-16] MEDS: metroNIDAZOLE 500 MG/100 ML BAG IV SCH ×3 (08:52→21:17)
[2019-06-16] MEDS: RASPBERRY SYRUP 5 ML UDP PO SCH ×4 (08:52→21:18)
[2019-06-16] MEDS: FAMOTIDINE 20 MG TAB PO SCH ×2 (08:52→21:18)
[2019-06-16] MEDS ORDERED: LACTATED RINGER'S 1,000 ML IV STA (08:58)
[2019-06-16] MEDS ORDERED: CALCITRIOL 0.25 MCG CAPSULE PO SCH (09:00)
[2019-06-16] MEDS ORDERED: CHOLECALCIFEROL 1,000 UNITS 25 MCG TAB PO SCH (09:00)
[2019-06-16] MEDS ORDERED: VANCOMYCIN HCL 250 MG/5 ML SOLN PO SCH (09:00)
--- NOTE | 2019-06-16 09:22 | CT Scan Report ---
CT SCAN OF THE ABDOMEN AND PELVIS WITHOUT IV CONTRAST CLINICAL HISTORY: Generalized abdominal pain. Diarrhea. COMPARISON STUDY: Abdominal CT scans dated 06/12/2019 and 06/08/2019. TECHNIQUE: CT scan of the abdomen and pelvis is performed from the lung bases to the proximal femora. Images are reviewed in the axial, sagittal, and coronal planes. IV contrast was not administered for this examination. Note that the examination was performed in suboptimal fashion without oral and IV contrast. A dose lowering technique was utilized adhering to the principles of ALARA. CT DOSE: 405.62 mGy.cm FINDINGS: Lung bases: The heart is normal in size noting trace pericardial effusion. There are coronary artery calcifications. Scarring/atelectasis is present at both lung bases. No airspace consolidation is seen typical for pneumonia. Liver: The unenhanced liver is normal in size, contour, and attenuation. There is moderate intrahepat ic biliary ductal dilatation. A 1.5 cm cyst or hemangioma in the right lobe is unchanged from previou s. Gallbladder: Surgically absent. Spleen: Normal in size and attenuation. Pancreas: Moderately atrophic and grossly unremarkable. Adrenal glands: Unremarkable. Kidneys: The unenhanced kidneys are atrophic and without hydronephrosis. No renal calculi are identif ied. There is no evidence of contour deforming mass lesion. Abdominal vasculature: The abdominal aorta is normal in course and caliber noting moderate to advance d atherosclerotic calcification. Bowel: There is postoperative change from sigmoid colon resection with left lower quadrant colostomy and rectal stump formation. No bowel obstruction is seen. The small bowel is fluid-filled. Liquid sto ol is noted in the colon. There is mild diverticulosis of the remaining colon without CT evidence of acute diverticulitis. There is also diverticulosis of the small bowel and duodenum. The appendix is well-visualized and normal. Peritoneum: There is no intraperitoneal free air or abdominal ascites. A midline surgical scar is not ed. Lymphadenopathy: None. Pelvic viscera: The bladder is decompressed around a Freeman catheter. The uterus and adnexa are normal as visualized. Skeletal structures: The skeletal structures are osteopenic. There is moderate lumbosacral spondylosi s. No lytic or blastic lesions are seen. IMPRESSION: 1. Suboptimal examination without oral and IV contrast. 2. There is postoperative change from sigmoid colon resection and left lower quadrant colostomy. No b owel obstruction is identified. 3. The small bowel study with fluid and there is a gallstone the colon. Correlate clinically for evid ence of a nonspecific enterocolitis. 4. Additional findings as above. ACT 112: Negative or not required by law. Electronically signed by: Remigio Lux M.D. 06/16/2019 9:21 AM
[2019-06-16] MEDS: POTASSIUM CHLORIDE 30 MEQ in SODIUM CHLORIDE 0.9% 1000ML 1,000 ML IV SCH ×2 (09:36→13:59)
--- NOTE | 2019-06-16 10:47 | Nephrology Progress Note ---
Date of Service June 16, 2019 Assessment & Plan (1) Acute hyponatremia: hypovolemic hypotonic hyponatremia, initially improved at acceptable rate and nearly resolved then dropped 10 points abruptly on June 14; today rebounding to 130 from 123 yesterday morning. With her large and ongoing GI losses through colostomy, potassium has not surprisingly dropped to 3.0 this morning. No indication for further urine studies at this time -IV fluids as below -Recheck labs 1500 ordered (2) JAVIER (acute kidney injury): Prior creatinine had been 0.8 as recently as June 08. Presenting creatinine June 11 was 2.2; improved further to 1.2 on June 13, now severe elevation to 2.5 on June 14, 3.7 today. Prerenal acute kidney injury in the setting of copious diarrhea and poor p.o. intake, worsening and now oliguric. Note she has not had any NSAIDs. Clinically improving but still borderline hypotensive Continue to avoid nephrotoxins Continue to hold Cozaar and other blood pressure meds on hold as well Ordered 2 L normal saline at 250 an hour with 30 mEq/L of potassium in each bag: Appreciate nursing efforts to monitor patient closely for volume overload flash tolerance to this aggressive rate of IV fluid resuscitation. Appreciate nursing efforts providing patient with spirometer. I will check in midday to see how she is tolerating fluids: Challenging situation since we need to resuscitate her but this elderly and frail patient may tolerate only so much resuscitation Repeat basic metabolic panel ordered for 1500 and will reassess fluid management at that time No structural and or other concerning renal lesion on CT scan today Will need renal clinic follow-up at discharge Admission and Anticipated Discharge Date Admission Date: June 12, 2019 Subjective Seen on rounds this morning at approximately 9:40 AM. She had emesis yesterday. None so far today. She did tolerate some broth this morning. Endorses shortn ess of breath with speech yesterday especially and some today and palpitations with activity. Still extremely tired and weak. Ongoing malaise. Copious watery ostomy output continues. I's and O's charted as 4.1 in and 3.7 out: 2.65 stool, 100 urine output, 950 emesis Review of Systems Review of Systems: All systems reviewed & are unremarkable except as noted in HPI & below Physical Exam Constitutional: well developed, well nourished, + frail appearing (Looks exhausted; sitting up in chair on room air) and cooperative Eyes: EOM intact bilaterally ENMT: Ears: no external ear abnormality Nose: no external nose abnormality Mouth: + dry oral mucous membranes Neck: no nuchal rigidity Respiratory: normal respiratory effort Auscultation: + diminished lung sounds and + crackles (Bibasilar) Cardiovascular: RRR, no murmur, no edema Gastrointestinal (Abdomen): Inspection/Auscultation: normal bowel sounds Percussion/Palpation: abdomen soft; abdomen nontender Colostomy present left lower quadrant with copious watery brown output Musculoskeletal: Extremities: + abnormal strength Generalized weakness Skin: no rashes, warm and dry Skin tenting Neurologic: davis, fluent speech, no tremor Psychiatric: Orientation: alert and oriented x 3 Results & Data ([facility]) Vital Signs (Past 12 Hours) Vital Signs Temp Pulse Pulse Resp BP BP Pulse Ox 06/16/19 07:44 36.7 C 79 18 121/69 91 06/16/19 07:19 76 06/16/19 03:48 36.3 C L 93 H 17 129/73 92 06/15/19 23:36 36.7 C 91 H 18 110/64 92 Laboratory Results 06/15/19 21:03 06/16/19 05:[address] abdomen pelvis noncontrast this morning Lung bases: The heart is normal in size noting trace pericardial effusion. There are coronary artery calcifications. Scarring/atelectasis is present at both lung bases. No airspace consolidation is seen typical for pneumonia. Liver: The unenhanced liver is normal in size, contour, and attenuation. There is moderate intrahepatic biliary ductal dilatation. A 1.5 cm cyst or hemangioma in the right lobe is unchanged from previous. Gallbladder: Surgically absent. Spleen: Normal in size and attenuation. Pancreas: Moderately atrophic and grossly unremarkable. Adrenal glands: Unremarkable. Kidneys: The unenhanced kidneys are atrophic and without hydronephrosis. No renal calculi are identified. There is no evidence of contour deforming mass lesion. Abdominal vasculature: The abdominal aorta is normal in course and caliber noting moderate to advanced atherosclerotic calcification. Bowel: There is postoperative change from sigmoid colon resection with left lower quadrant colostomy and rectal stump formation. No bowel obstruction is seen. The small bowel is fluid-filled. Liquid stool is noted in the colon. There is mild diverticulosis of the remaining colon without CT evidence of acute diverticulitis. There is also diverticulosis of the small bowel and duodenum. T he appendix is well-visualized and normal. Peritoneum: There is no intraperitoneal free air or abdominal ascites. A midline surgical scar is noted. Lymphadenopathy: None. Pelvic viscera: The bladder is decompressed around a Freeman catheter. The uterus and adnexa are normal as visualized. Skeletal structures: The skeletal structures are osteopenic. There is moderate lumbosacral spondylosis. No lytic or blastic lesions are seen. IMPRESSION: 1. Suboptimal examination without oral and IV contrast. 2. There is postoperative change from sigmoid colon resection and left lower quadrant colostomy. No bowel obstruction is identified. 3. The small bowel study with fluid and there is a gallstone the colon. Correlate clinically for evidence of a nonspecific enterocolitis. 4. Additional findings as above.
--- NOTE | 2019-06-16 12:35 | Hospitalist Progress Note ---
Date of Service June 16, 2019 Assessment & Plan (1) Diarrhea: Possible secondary to C. difficile colitis Continues to have large amount of liquid BM /output in colostomy bag > 3.7 L in last 24 hours Symptoms of nausea /poor appetite /abdominal bloating improved this morning Discussed with GI on PO vanco dose increased to 500 mg 4 times daily added Flaglyl IV 500 mg [address] abdomen /pelvis this morning as above, nonspecific colitis no evidence of obstruction no diverticulitis Continue isolation precaution Patient started on p.o. Questran as per GI recommendation SEVERE DEHYDRATION , ATN /OLIGURIC ; Patient developed acute renal failure/ due to ongoing GI loss Freeman placed, very minimum urine out put noted Creatinine continues to worsen> 3.7/associated with hypo-kalemia secondary to GI loss Appreciate input from nephrology Continue IV fluid resuscitation on NSS +20 care at 250 mils per hour Repeat lab to be checked at 3 PM today History of diastolic CHF Patient's recent echo on 06/16/2019, normal ejection fraction/grade 1 diastolic dysfunction/HFpEF At present patient is severely intravascularly volume depleted secondary to ongoing diarrhea/GI loss Continue to receive IV fluids Home medication losartan kept on hold No hypoxia noted, patient denies of any orthopnea, right basilar Rales auscultated proBNP/repeat chest x-ray ordered-we will follow (2) Acute pancreatitis: resolved presents to ED secondary to epigastric pain and nausea x2 days. symptoms as resolved completely lipase level normalized appreciate input from GI MRCP : no gall bladder pathology GI evaluation requested because of ongoing profuse diarrhea, Added on Questran LFTs within normal limits Patient is been on clears for ongoing diarrhea, abdominal discomfort/bloating (3) Acute hyponatremia: Due to acute dehydration continued to have GI loss with high colostomy out put with liquid stool IV fluids as outlined above by nephrology Nephrology consulted -appreciate input (4) JAVIER (acute kidney injury): due to ongoing GI loss causing dehydration increased IVF , nephrology following Follow BMP closely (5) Perforation of intestine due to diverticulitis of gastrointestinal tract: 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 abdomen /pelvis this admission was unremarkable repeat CT scan ordered for ongoing diarrhea -no evidence of obstruction or perforation, no diverticulitis, (6) Pericarditis: Recently admitted 06/07 to 06/09 secondary to left-sided chest pain Found to have pericardial effusion Echo on 06/08 revealed EF 65 to 70%, grade 1 diastolic dysfunction, pericardial effusion Symptoms felt likely secondary to acute pericarditis was treated with colchicine onl hold secondary to JAVIER and pancreatitis Consulted cardiology : no further tx with Colchicine needed (7) HTN (hypertension): BP on lower side due to dehydration with on going GI loss /loose stool hold all antihypertensives pt is getting IV fluid bolus (8) Hypothyroidism: continue levothyroxine (9) GERD (gastroesophageal reflux disease): continue PPI and famotidine (10) DVT prophylaxis: Disposition: Continue to monitor in telemetry Follow up: PCP Dr. Nicholas upon discharge update given to daughter over phone Admission and Anticipated Discharge Date Admission Date: June 12, 2019 Subjective Patient is sitting up on chair, states that she continues to feel very fatigued, lack of energy Large amount of greenish liquid watery stool noted on the colostomy, Already had almost 700 mL out from the colostomy Since abdominal pain/cramps has improved, no new complaint of bloating Appetite is coming back, Tried with clear broth this morning, does not feel nauseous Mentions of being short of breath this morning when walking with physical therapy, no hypoxia noted No fever or chills, no cough Feels dizzy and lightheaded when standing up, No syncope Review of Systems Review of Systems: All systems reviewed & are unremarkable except as noted in HPI & below Gastrointestinal: + diarrhea/loose stools; no abdominal pain, no bloating, no nausea and no vomiting Physical Exam Constitutional: WD/WN, vitals as above no acute distress Eyes: PERRL, conjunctivae normal, anicteric sclerae ENMT: external ear and nose normal, oropharynx normal Neck: trachea midline, no thyromegaly Respiratory: normal respiratory effort, lungs clear to auscultation Cardiovascular: RRR, no murmur, no edema Gastrointestinal (Abdomen): normal bowel sounds, soft, nontender, no hepatosplenomegaly Percussion/Palpation: + abdomen tender (on lower abdomen ) and abdomen soft Musculoskeletal: no cyanosis or clubbing, extremities motor strength 5/5 Skin: no rashes, warm and dry Neurologic: PERRL, EOMI, accommodation nl, no face palsy, no dysarthria Psychiatric: A+Ox3, euthymic affect Results & Data Results & Data ([facility]) Vital Signs (Past 12 Hours) Vital Signs Temp Pulse Pulse Resp BP Pulse Ox 06/16/19 12:25 36.3 C L 82 18 116/74 95 06/16/19 07:44 36.7 C 79 18 121/69 91 06/16/19 07:19 76 06/16/19 03:48 36.3 C L 93 H 17 129/[address] abdomen pelvis noncontrast 06/16/19 IMPRESSION: 1. Suboptimal examination without oral and IV contrast. 2. There is postoperative change from sigmoid colon resection and left lower quadrant colostomy. No bowel obstruction is identified. 3. The small bowel study with fluid and there is a gallstone the colon. Correl ate clinically for evidence of a nonspecific enterocolitis. (1) Diarrhea Diarrhea type: unspecified type Qualified Code(s): R19.7 - Diarrhea, unspecified (2) Acute pancreatitis Acute pancreatitis complication: unspecified Pancreatitis type: unspecified pancreatitis type Qualified Code(s): K85.90 - Acute pancreatitis without necrosis or infection, unspecified
[2019-06-16] MEDS: CHOLESTYRAMINE LIGHT 4 GM PKT PO SCH ×2 (12:43→21:18)
--- NOTE | 2019-06-16 12:45 | Gastroenterology Progress Note ---
Date of Service June 16, 2019 Assessment & Plan Admission and Anticipated Discharge Date Admission Date: June 12, 2019 Patient followed actually seen by gastroneurology for question of liver enzyme elevation and a dilated common bile duct. Given the CT scans I would suggest further evaluation with a right upper quadrant ultrasound and repeat set of liver enzymes today. Of note the patient does seem to feel well today. She notes that her biggest issue is the large volume that is coming out from her ostomy. Perhaps this is related to refractory C. difficile infection. Recommendations To new metronidazole 3 times daily, increase vancomycin to 500 mg 4 times daily Begin Questran 4 g 3 times daily Consider a general surgery consultation Right upper quadrant ultrasound repeat liver enzymes Daily KUB Subjective I was called to see the patient today due to persistent diarrhea. The patient was previously thought to have C. difficile colitis by my partner and started on a course of vancomycin 3 days ago. Over the past 24 hours her hospitalist has noted the patient has gotten worse with worsening renal function and persistent high volume ostomy output. Of note the patient was initially admitted with a slight elevation of her AST and ALT and was found to have a dilated common bile duct with a negative MRCP. CT from today shows a possible gallstone in her small intestine or colon. Review of Systems Constitutional: no fever, no sweats and no weight loss Eyes: no diplopia Respiratory: no change in sputum and no hemoptysis Cardiovascular: no chest pain with activity Gastrointestinal: + abdominal pain; no bloating, no early satiety, no nausea and no vomiting Ostomy with liquid output Results & Data ([facility]) Vital Signs (Past 12 Hours) Vital Signs Temp Pulse Pulse Resp BP Pulse Ox 06/16/19 12:25 36.3 C L 82 18 116/74 95 06/16/19 07:44 36.7 C 79 18 121/69 91 06/16/19 07:19 76 06/16/19 03:48 36.3 C L 93 H 17 129/73 92 Laboratory Results Laboratory Results - last 24 hr 06/15/19 06/15/19 06/15/19 14:50 14:50 21:03 WBC 6.73 RBC 4.90 Hgb 14.5 Hct 41.2 MCV 84.1 MCH 29.6 MCHC 35.2 RDW Std Deviation 39.0 RDW Coeff of Grecia 12.8 Plt Count 400 MPV 10.2 Immature Gran % (Auto) 0.3 Neut % (Auto) 64.5 Lymph % (Auto) 18.6 Clare % (Auto) 15.9 Eos % (Auto) 0.3 Baso % (Auto) 0.4 Immature Gran # (Auto) 0.02 Neut # (Auto) 4.34 Lymph # (Auto) 1.25 Clare # (Auto) 1.07 H Eos # (Auto) 0.02 Baso # (Auto) 0.03 Sodium 127 L Potassium 3.6 Chloride 94 L Carbon Dioxide 21 Anion Gap 12.0 H BUN 34 H Creatinine 3.14 H D Est Cr Clr Drug Dosing 11.8 Est GFR ( Amer) 15.1 Est GFR (Non-Af Amer) 13.1 BUN/Creatinine Ratio 10.7 Glucose 125 H Osmolality 278 L Lactate Calcium 9.6 Total Bilirubin AST ALT Alkaline Phosphatase Total Protein Albumin Globulin Albumin/Globulin Ratio Procalcitonin Urine Osmolality Ur Random Sodium 06/15/19 06/15/19 06/15/19 21:03 21:03 21:12 WBC RBC Hgb Hct MCV MCH MCHC RDW Std Deviation RDW Coeff of Grecia Plt Count MPV Immature Gran % (Auto) Neut % (Auto) Lymph % (Auto) Clare % (Auto) Eos % (Auto) Baso % (Auto) Immature Gran # (Auto) Neut # (Auto) Lymph # (Auto) Clare # (Auto) Eos # (Auto) Baso # (Auto) Sodium 126 L Potassium 3.5 Chloride 91 L Carbon Dioxide 22 Anion Gap 13.0 H BUN 33 H Creatinine 3.67 H D Est Cr Clr Drug Dosing 10.1 Est GFR ( Amer) 12.5 Est GFR (Non-Af Amer) 10.8 BUN/Creatinine Ratio 9.1 L Glucose 124 H Osmolality Lactate 1.1 Calcium 9.9 Total Bilirubin 0.7 AST 13 L ALT 24 Alkaline Phosphatase 103 Total Protein 8.5 H Albumin 3.2 L Globulin 5.3 H Albumin/Globulin Ratio 0.6 L Procalcitonin 0.25 Urine Osmolality Ur Random Sodium 06/15/19 06/15/19 06/16/19 21:35 21:35 05:46 WBC RBC Hgb Hct MCV MCH MCHC RDW Std Deviation RDW Coeff of Grecia Plt Count MPV Immature Gran % (Auto) Neut % (Auto) Lymph % (Auto) Clare % (Auto) Eos % (Auto) Baso % (Auto) Immature Gran # (Auto) Neut # (Auto) Lymph # (Auto) Clare # (Auto) Eos # (Auto) Baso # (Auto) Sodium 130 L Potassium 3.0 L Chloride 97 L Carbon Dioxide 21 Anion Gap 12.0 H BUN 34 H Creatinine 3.72 H Est Cr Clr Drug Dosing 9.8 Est GFR ( Amer) 12.3 Est GFR (Non-Af Amer) 10.6 BUN/Creatinine Ratio 9.0 L Glucose 96 Osmolality Lactate Calcium 8.6 Total Bilirubin AST ALT Alkaline Phosphatase Total Protein Albumin Globulin Albumin/Globulin Ratio Procalcitonin Urine Osmolality 388 L Ur Random Sodium 20 Diagnostic Findings FINDINGS: Lung bases: The heart is normal in size noting trace pericardial effusion. There are coronary artery calcifications. Scarring/atelectasis is present at both lung bases. No airspace consolidation is seen typical for pneumonia. Liver: The unenhanced liver is normal in size, contour, and attenuation. There is moderate intrahepatic biliary ductal dilatation. A 1.5 cm cyst or hemangioma in the right lobe is unchanged from previous. Gallbladder: Surgically absent. Spleen: Normal in size and attenuation. Pancreas: Moderately atrophic and grossly unremarkable. Adrenal glands: Unremarkable. Kidneys: The unenhanced kidneys are atrophic and without hydronephrosis. No renal calculi are identified. There is no evidence of contour deforming mass lesion. Abdominal vasculature: The abdominal aorta is normal in course and caliber noting moderate to advanced atherosclerotic calcification. Bowel: There is postoperative change from sigmoid colon resection with left lower quadrant colostomy and rectal stump formation. No bowel obstruction is seen. The small bowel is fluid-filled. Liquid stool is noted in the colon. There is mild diverticulosis of the remaining colon without CT evidence of acute diverticulitis. There is also diverticulosis of the small bowel and duodenum. The appendix is well-visualized and normal. Peritoneum: There is no intraperitoneal free air or abdominal ascites. A midline surgical scar is noted. Lymphadenopathy: None. Pelvic viscera: The bladder is decompressed around a Freeman catheter. The uterus and adnexa are normal as visualized. Skeletal structures: The skeletal structures are osteopenic. There is moderate lumbosacral spondylosis. No lytic or blastic lesions are seen. IMPRESSION: 1. Suboptimal examination without oral and IV contrast. 2. There is postoperative change from sigmoid colon resection and left lower quadrant colostomy. No bowel obstruction is identified. 3. The small bowel study with fluid and there is a gallstone the colon. Correlate clinically for evidence of a nonspecific enterocolitis. 4. Additional findings as above.
[2019-06-16] MEDS: VANCOMYCIN HCL 500 MG/10 ML SOLN PO SCH ×3 (13:13→21:18)
--- NOTE | 2019-06-16 14:03 | XRay Report ---
SINGLE VIEW CHEST CLINICAL HISTORY: Dyspnea. FINDINGS: An AP, portable, upright chest radiograph is compared to study dated 06/12/2019. The examina tion is degraded by portable technique and patient rotation. The cardiomediastinal silhouette is un remarkable. There is mild elevation of the right hemidiaphragm and bibasilar atelectasis. The lungs a nd pleural spaces are otherwise clear. No pneumothorax is seen. The skeletal structures are osteopeni c. The bony thorax is grossly intact. IMPRESSION: No active disease in the chest. ACT 112: Negative or not required by law. Electronically signed by: Remigio Lux M.D. 06/16/2019 2:02 PM
[2019-06-16 15:30] LABS: Albumin Level 2.9 gm/dl (3.4-5.0); BUN Creatinine Ratio 9.6 (10-20); Bilirubin Direct 0.1 mg/dl (0-0.2); Bilirubin,Total 0.4 mg/dl (0.2-1); Calcium 8.2 mg/dl (8.5-10.1); Creatinine Clr Calc Pharmacy 10.4 ml/min; Est GFR (African American) 13.2; Est GFR (Non-African American) 11.4; Magnesium 1.9 mg/dl (1.8-2.4); Potassium 3.7 mmol/L (3.5-5.1); Total Protein 7.8 gm/dl (6.4-8.2)
--- NOTE | 2019-06-16 17:23 | Ultrasound Report ---
ULTRASOUND RIGHT UPPER QUADRANT ABDOMEN CLINICAL HISTORY: Cholelithiasis. COMPARISON STUDY: Abdominal CT performed the same day 06/16/2019. TECHNIQUE: Real-time, grayscale, and color flow sonography of the right upper quadrant of the abdomen was performed. Images are reviewed in the transverse and longitudinal planes. FINDINGS: Liver: The liver is normal in size and slightly heterogeneous in echotexture. There is no intrahepati c biliary ductal dilatation. The main portal vein is patent. Gallbladder: The gallbladder is surgically absent. The common bile duct measures up to 0.8 cm in diam eter. Pancreas: Visualized portions of the pancreatic head and body are normal in appearance. The splenic v ein is patent. Right kidney: Survey images of the right kidney demonstrate cortical atrophy. Echotexture is normal. There is no hydronephrosis. Ascites: None. IMPRESSION: Unremarkable sonographic assessment of the right upper quadrant noting status post cholec ystectomy. ACT 112: Negative or not required by law. Electronically signed by: Remigio Lux M.D. 06/16/2019 5:22 PM
[2019-06-16] MEDS: SODIUM BICARBONATE 8.4% 150 MEQ, POTASSIUM CHLORIDE 20 MEQ in DEXTROSE 5% 1,000 ML IV SCH ×2 (18:43→23:28)
[2019-06-17] MEDS: SODIUM BICARBONATE 8.4% 150 MEQ, POTASSIUM CHLORIDE 20 MEQ in DEXTROSE 5% 1,000 ML IV SCH ×3 (00:31→06:20)
[2019-06-17] MEDS: LEVOTHYROXINE SODIUM 100 MCG TABLET PO SCH (05:41)
[2019-06-17 07:34] LABS: Albumin Globulin Ratio 0.6 (0.9-2); Albumin Level 2.4 gm/dl (3.4-5.0); BUN Creatinine Ratio 13.2 (10-20); Bilirubin,Total 0.5 mg/dl (0.2-1); Calcium 8.6 mg/dl (8.5-10.1); Creatinine Clr Calc Pharmacy 17.9 ml/min; Est GFR (African American) 25.2; Est GFR (Non-African American) 21.7; Globulin 3.9 gm/dl (2.5-4.0); Magnesium 1.7 mg/dl (1.8-2.4); Potassium 3.2 mmol/L (3.5-5.1); Total Protein 6.3 gm/dl (6.4-8.2)
[2019-06-17] MEDS: LACTOBACILLUS ACIDOPHILUS (FLORANEX) TAB PO SCH ×3 (07:46→16:15)
[2019-06-17] MEDS: FAMOTIDINE 20 MG TAB PO SCH ×2 (08:06→20:18)
[2019-06-17] MEDS: metroNIDAZOLE 500 MG/100 ML BAG IV SCH ×3 (08:06→20:19)
[2019-06-17] MEDS: VANCOMYCIN HCL 500 MG/10 ML SOLN PO SCH ×4 (08:07→20:18)
[2019-06-17] MEDS: RASPBERRY SYRUP 5 ML UDP PO SCH ×4 (08:07→20:17)
--- NOTE | 2019-06-17 09:27 | Nephrology Progress Note ---
Date of Service June 17, 2019 Assessment & Plan (1) JAVIER (acute kidney injury): Prior creatinine had been 0.8 as recently as June 08. Presenting creatinine June 11 was 2.2; improved further to 1.2 on June 13, then severe elevation to peak on 05/15 at 3.7; improved to 2.1 today. Prerenal acute kidney injury in the setting of copious and ongoing diarrhea/ostomy output and poor p.o. intake, worsening and now (BARELY today) nonoliguric. Note she has not had any NSAIDs. Clinically improving but still borderline blood pressures considering rate of IVF and that she has no bp meds on board Continue to avoid nephrotoxins Continue to hold Cozaar and other blood pressure meds -changed bicarb gtt to LR as below Appreciate nursing efforts to continue to monitor patient closely for volume overload and change in tolerance to this aggressive rate of IV fluid resuscitation: Challenging situation since we need to resuscitate her but this elderly and frail patient may tolerate only so much resuscitation Repeat basic metabolic panel ordered for 1600 but will obtain early at 1430 given chest pressure, slight sob after I saw her and will use this to reassess fluid management No structural and or other concerning renal lesion on CT scan 06/14 Will need renal clinic follow-up at discharge (2) Hypokalemia: severe and d/t large output from ostomy. bicarb deficit has corrected but K still low >changed IVF to LR w/ 20 mEq/L KCl at 200 mL hourly --await labs adn recheck status -recheck bmp now from 1600 > 1430 and reassess IVF at that time Present on Admission?: Yes (3) Acute hyponatremia: hypovolemic hypotonic hyponatremia, initially improved at acceptable rate and nearly resolved then dropped 10 points abruptly on June 14; today further corrected and nearly normalized w/ aggresive volume resuscitation. -Recheck labs as above ordered Admission and Anticipated Discharge Date Admission Date: June 12, 2019 Subjective feels much improved today - stronger, getting up better. no sob but some occasional chest heaviness and sinus dryness. ongoing large ostomy output (4.5L) despite questran. not dypsneic w/ speech. has pinedo and voiding well. no aleida sob to me but shortly after I leave tells nurse she is a bit sob. tolerating po today Review of Systems Review of Systems: All systems reviewed & are unremarkable except as noted in HPI & below Physical Exam Constitutional: well developed, well nourished and cooperative; no acute distress chatting w/ daughter on phone up in chair not wilted like yesterday Eyes: EOM intact bilaterally ENMT: Ears: no external ear abnormality Nose: no external nose abnormality Mouth: + dry oral mucous membranes Neck: no nuchal rigidity Respiratory: normal respiratory effort and able to speak in complete sentences; no labored breathing, no cough and no paradoxical thoraco-abdominal movemnt Auscultation: + diminished lung sounds and + crackles (Bibasilar, R>L); + lungs not clear to auscultation and no wheezes Cardiovascular: RRR, no murmur, no edema Gastrointestinal (Abdomen): Inspection/Auscultation: normal bowel sounds Percussion/Palpation: abdomen soft; abdomen nontender Musculoskeletal: Extremities: + abnormal strength Skin: no rashes, warm and dry Neurologic: davis, fluent speech, no tremor Psychiatric: A+Ox3, euthymic affect Orientation: alert and oriented x 3 Genitourinary: pinedo w/ ample urine Results & Data ([facility]) Vital Signs (Past 12 Hours) Vital Signs Temp Pulse Pulse Resp BP BP Pulse Ox 06/17/19 07:30 36.5 C 74 16 112/66 93 06/17/19 07:05 79 06/17/19 03:20 36.7 C 77 16 111/67 93 06/17/19 00:58 86 06/16/19 23:33 36.6 C 92 H 16 106/67 95 Laboratory Results 06/15/19 21:03 06/17/19 06:33
[2019-06-17] MEDS: POTASSIUM CHLORIDE 20 MEQ in LACTATED RINGER'S 1,000 ML IV SCH ×2 (09:58→17:20)
[2019-06-17] MEDS: CHOLESTYRAMINE LIGHT 4 GM PKT PO SCH ×3 (10:00→21:13)
--- NOTE | 2019-06-17 10:53 | Gastroenterology Progress Note ---
Date of Service June 17, 2019 Assessment & Plan Admission and Anticipated Discharge Date Admission Date: June 12, 2019 Patient with C. difficile infection complicated by watery output from her colostomy. The patient seems to be improving with increased dosing of vancomycin yesterday in addition to use of Questran Recommendations Questran 4 g 3 times daily Vancomycin 500 mg 4 times daily Metronidazole IV 3 times daily Daily KUB Subjective Patient has no specific complaints today. She notes that her stool does seem to be slowly solidifying with addition of Questran yesterday. Review of Systems Constitutional: no sweats and no malaise Eyes: no diplopia Respiratory: no change in sputum and no hemoptysis Cardiovascular: no chest pain with activity Physical Exam Constitutional: WD/WN, vitals as above Neck: trachea midline, no thyromegaly Respiratory: normal respiratory effort; no respiratory distress Cardiovascular: Heart Sounds: + murmur Gastrointestinal (Abdomen): Ostomy with liquid output, seems somewhat thicker than yesterday although it is still watery Results & Data ([facility]) Vital Signs (Past 12 Hours) Vital Signs Temp Pulse Pulse Resp BP BP Pulse Ox 06/17/19 07:30 36.5 C 74 16 112/66 93 06/17/19 07:05 79 06/17/19 03:20 36.7 C 77 16 111/67 93 06/17/19 00:58 86 06/16/19 23:33 36.6 C 92 H 16 106/67 95 Laboratory Results Laboratory Results - last 24 hr 06/16/19 06/16/19 06/17/19 14:36 14:36 06:33 Sodium 132 L 135 L Potassium 3.7 D 3.2 L Chloride 103 98 Carbon Dioxide 20 L 31 Anion Gap 9.0 6.0 BUN 34 H 27 H Creatinine 3.51 H 2.06 H D Est Cr Clr Drug Dosing 10.4 17.9 Est GFR ( Amer) 13.2 25.2 Est GFR (Non-Af Amer) 11.4 21.7 BUN/Creatinine Ratio 9.6 L 13.2 Glucose 103 H 108 H Calcium 8.2 L 8.6 Magnesium 1.9 1.7 L Total Bilirubin 0.4 Cancelled 0.5 Direct Bilirubin 0.1 Cancelled AST 11 L Cancelled 6 L ALT 21 Cancelled 16 Alkaline Phosphatase 93 Cancelled 70 NT-Pro-B Natriuret Pep 234 Cancelled Total Protein 7.8 Cancelled 6.3 L Albumin 2.9 L Cancelled 2.4 L Globulin 3.9 Albumin/Globulin Ratio 0.6 L
[2019-06-17] MEDS ORDERED: SODIUM CHLORIDE 0.65% NA SOLN 45 ML (OCEAN) ONE (13:59)
--- NOTE | 2019-06-17 14:58 | XRay Report ---
XR chest 1V portable HISTORY: 84 years-old Female chest pain. Acute atypical chest pain with fluid overload COMPARISON: Chest radiograph 06/16/2019 TECHNIQUE: Portable AP view of the chest FINDINGS: Cardiac silhouette is upper limits of normal in size. Unchanged right hemidiaphragmatic elevation. Mi ld linear left lung base scarring/atelectasis is unchanged. No pneumothorax, large pleural effusion, overt pulmonary edema or airspace consolidation typical for pneumonia. Degenerative changes of the sh oulders and spine. IMPRESSION: No acute process. ACT 112: Negative or not required by law. The above report was generated using voice recognition software. It may contain grammatical, syntax o r spelling errors. Electronically signed by: Dima Lama M.D. 06/17/2019 2:56 PM
[2019-06-17 15:10] LABS: BUN Creatinine Ratio 15.1 (10-20); Calcium 8.3 mg/dl (8.5-10.1); Creatinine Clr Calc Pharmacy 23.1 ml/min; Est GFR (African American) 34.2; Est GFR (Non-African American) 29.5; Potassium 3.4 mmol/L (3.5-5.1)
[2019-06-17] MEDS: NITROGLYCERIN SL 0.4 MG/TAB TAB SL PRN (15:40)
[2019-06-17] MEDS: POTASSIUM CHLORIDE 20 MEQ TABCR PO SCH ×2 (16:06→20:18)
[2019-06-17] MEDS ORDERED: MAGNESIUM SULFATE / D5W 1 GM/100 ML BAG IV ONE (16:24)
--- NOTE | 2019-06-17 17:03 | Hospitalist Progress Note ---
Date of Service June 17, 2019 Assessment & Plan (1) Diarrhea: Possible secondary to severe C. difficile colitis Continues to have large amount of liquid BM /output in colostomy bag 5-4 L /day Symptoms of nausea /poor appetite /abdominal bloating improved this morning Discussed with GI on PO vanco dose increased to 500 mg 4 times daily added Flaglyl IV 500 mg [address] abdomen /pelvis shows nonspecific colitis no evidence of obstruction no diverticulitis Continue isolation precaution Patient started on p.o. Questran as per GI recommendation SEVERE DEHYDRATION , ATN /OLIGURIC ; Cr improved with IV hydration Patient developed acute renal failure/ due to ongoing GI loss Freeman placed, very minimum urine out put noted Appreciate input from nephrology History of diastolic CHF Patient's recent echo on 06/16/2019, normal ejection fraction/grade 1 diastolic dysfunction/HFpEF At present patient is severely intravascularly volume depleted secondary to ongoing diarrhea/GI loss given Home medication losartan kept on hold No hypoxia noted, patient denies of any orthopnea, right basilar Rales auscultated proBNP-wnl / chest x-ray shows no pleural effusion or congestion transient episode of left sided chest heaviness /left facial numbness today - symptom resolved with SL tyshawn EKG does not show any acute change monitor in tele Follow cardiac markers Cardiology is consulted for hx of pericardial effusion , signed off as pt been stable will discuss with cardiology tomorrow regarding angina symptom (2) Acute pancreatitis: resolved presents to ED secondary to epigastric pain and nausea x2 days. symptoms as resolved completely lipase level normalized appreciate input from GI MRCP : no gall bladder pathology GI evaluation requested because of ongoing profuse diarrhea, Added on Questran LFTs within normal limits diet advanced to low fiber tolerating well (3) Acute hyponatremia: Due to acute dehydration continued to have GI loss with high colostomy out put with liquid stool IV fluids as outlined above by nephrology Nephrology consulted -appreciate input (4) JAVIER (acute kidney injury): due to ongoing GI loss causing dehydration cr improved with IV fluid nephrology following Follow BMP closely (5) Perforation of intestine due to diverticulitis of gastrointestinal tract: 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 abdomen /pelvis this admission was unremarkable repeat CT scan ordered for ongoing diarrhea -no evidence of obstruction or perforation, no diverticulitis, (6) Pericarditis: Recently admitted 06/07 to 4/12 secondary to left-sided chest pain Found to have pericardial effusion Echo on 06/08 revealed EF 65 to 70%, grade 1 diastolic dysfunction, pericardial effusion Symptoms felt likely secondary to acute pericarditis was treated with colchicine onl hold secondary to JAVIER and pancreatitis Consulted cardiology : no further tx with Colchicine needed (7) HTN (hypertension): BP on lower side due to dehydration with on going GI loss /loose stool hold all antihypertensives pt is getting IV fluid bolus (8) Hypothyroidism: continue levothyroxine (9) GERD (gastroesophageal reflux disease): continue PPI and famotidine (10) DVT prophylaxis: Disposition: Continue to monitor in telemetry Follow up: PCP Dr. Nicholas upon discharge update given to daughter over phone Admission and Anticipated Discharge Date Admission Date: June 12, 2019 Subjective feels tired and wiped out continues to have loose bowel in colostomy had chest heaviness this afternoon , resolved with sl nitro stat EKG does not show any acute change ordered for troponin to be checked Review of Systems Review of Systems: All systems reviewed & are unremarkable except as noted in HPI & below Constitutional: + fatigue, + malaise, + weakness and + anorexia; no fever and no chills Gastrointestinal: + diarrhea/loose stools; no abdominal pain, no nausea and no vomiting Physical Exam Constitutional: WD/WN, vitals as above no acute distress Eyes: PERRL, conjunctivae normal, anicteric sclerae ENMT: external ear and nose normal, oropharynx normal Neck: trachea midline, no thyromegaly Respiratory: normal respiratory effort, lungs clear to auscultation Cardiovascular: RRR, no murmur, no edema Gastrointestinal (Abdomen): Percussion/Palpation: abdomen nontender (on lower abdomen ) colostomy has liquid brown stool Musculoskeletal: no cyanosis or clubbing, extremities motor strength 5/5 Skin: no rashes, warm and dry Neurologic: PERRL, EOMI, accommodation nl, no face palsy, no dysarthria Psychiatric: A+Ox3, euthymic affect Results & Data Results & Data ([facility]) Vital Signs (Past 12 Hours) Vital Signs Temp Pulse Pulse Resp BP Pulse Ox 06/17/19 16:54 78 06/17/19 16:19 36.7 C 78 18 123/64 94 06/17/19 11:45 36.8 C 73 18 129/60 93 06/17/19 07:30 36.5 C 74 16 112/66 93 06/17/19 07:05 79 (1) Diarrhea Diarrhea type: unspecified type Qualified Code(s): R19.7 - Diarrhea, unspecified (2) Acute pancreatitis Acute pancreatitis complication: unspecified Pancreatitis type: unspecified pancreatitis type Qualified Code(s): K85.90 - Acute pancreatitis without necrosis or infection, unspecified
--- NOTE | 2019-06-17 17:33 | Electrocardiogram Report ---
Test Reason : Blood Pressure : / mmHG Vent. Rate : 074 BPM Atrial Rate : 074 BPM P-R Int : 190 ms QRS Dur : 138 ms QT Int : 426 ms P-R-T Axes : 009 -12 -21 degrees QTc Int : 472 ms Normal sinus rhythm Right bundle branch block Minimal voltage criteria for LVH, may be normal variant Abnormal ECG When compared with ECG of 12-JUN-2019 17:50, No significant change was found Confirmed by Олег Buck ([id number] on 06/17/2019 5:32:50 PM Referred By: REFERRED SELF Confirmed By:Олег Buck
[2019-06-18] MEDS: ACETAMINOPHEN 325 MG TAB PO PRN (01:47)
[2019-06-18] MEDS: POTASSIUM CHLORIDE 20 MEQ in LACTATED RINGER'S 1,000 ML IV SCH ×2 (01:51→10:10)
[2019-06-18] MEDS: NITROGLYCERIN SL 0.4 MG/TAB TAB SL PRN (01:56)
[2019-06-18] MEDS: LEVOTHYROXINE SODIUM 100 MCG TABLET PO SCH (06:04)
[2019-06-18 07:18] LABS: Hemoglobin 11.5 g/dL (12.0-16.0); Mean Corpuscular Hemoglobin 29.3 pg (25-34); Mean Corpuscular Hgb Conc 33.8 g/dL (32-36); Mean Corpuscular Volume 86.7 fL (80-100); Mean Platelet Volume 9.9 fL (7.4-10.4); Platelet Count 311 K/uL (130-400); RDW Coefficient of Variation 12.9 % (11.5-14.5); RDW Standard Deviation 41.3 fL (36.4-46.3); Red Blood Count 3.92 M/uL (4.2-5.4); White Blood Count 4.48 K/uL (4.8-10.8)
[2019-06-18 07:52] LABS: BUN Creatinine Ratio 13.6 (10-20); Blood Urea Nitrogen 16 mg/dl (7-18); Calcium 8.5 mg/dl (8.5-10.1); Carbon Dioxide 31 mmol/L (21-32); Chloride 102 mmol/L (98-107); Creatinine Clr Calc Pharmacy 31.6 ml/min; Est GFR (African American) 49.9; Est GFR (Non-African American) 43.1; Glucose 99 mg/dl (70-99); Potassium 4.5 mmol/L (3.5-5.1); Sodium 134 mmol/L (136-145); Troponin I < 0.015 ng/ml (0-0.045)
[2019-06-18] MEDS: FAMOTIDINE 20 MG TAB PO SCH ×2 (09:21→21:23)
[2019-06-18] MEDS: RASPBERRY SYRUP 5 ML UDP PO SCH ×4 (09:21→21:23)
[2019-06-18] MEDS: VANCOMYCIN HCL 500 MG/10 ML SOLN PO SCH ×4 (09:21→21:23)
[2019-06-18] MEDS: LACTOBACILLUS ACIDOPHILUS (FLORANEX) TAB PO SCH ×3 (09:21→16:27)
[2019-06-18] MEDS: metroNIDAZOLE 500 MG/100 ML BAG IV SCH ×4 (09:31→21:24)
[2019-06-18] MEDS: LACTATED RINGER'S 1,000 ML IV SCH ×2 (09:50→21:24)
[2019-06-18] MEDS: POTASSIUM CHLORIDE 20 MEQ TABCR PO SCH (10:04)
[2019-06-18] MEDS: CHOLESTYRAMINE LIGHT 4 GM PKT PO SCH ×3 (10:58→21:24)
--- NOTE | 2019-06-18 13:58 | Hospitalist Progress Note ---
Date of Service June 18, 2019 Assessment & Plan (1) Diarrhea: Possible secondary to severe C. difficile colitis Continues to have large amount of liquid BM /output in colostomy bag 5-4 L /day Symptoms of nausea /poor appetite /abdominal bloating improved this morning Discussed with GI on PO vanco dose increased to 500 mg 4 times daily added Flaglyl IV 500 mg [address] abdomen /pelvis shows nonspecific colitis no evidence of obstruction no diverticulitis Continue isolation precaution Patient started on p.o. Questran as per GI recommendation SEVERE DEHYDRATION , ATN /OLIGURIC ; Cr improved with IV hydration Patient developed acute renal failure/ due to ongoing GI loss Freeman placed, very minimum urine out put noted Appreciate input from nephrology History of diastolic CHF Patient's recent echo on 06/16/2019, normal ejection fraction/grade 1 diastolic dysfunction/HFpEF At present patient is severely intravascularly volume depleted secondary to ongoing diarrhea/GI loss given Home medication losartan kept on hold No hypoxia noted, patient denies of any orthopnea, right basilar Rales auscultated proBNP-wnl / chest x-ray shows no pleural effusion or congestion transient episode of left sided chest heaviness /left facial numbness today - symptom resolved with SL tyshawn EKG does not show any acute change monitor in tele Follow cardiac markers Cardiology is consulted for hx of pericardial effusion , signed off as pt been stable will discuss with cardiology tomorrow regarding angina symptom (2) Acute pancreatitis: resolved presents to ED secondary to epigastric pain and nausea x2 days. symptoms as resolved completely lipase level normalized appreciate input from GI MRCP : no gall bladder pathology GI evaluation requested because of ongoing profuse diarrhea, Added on Questran LFTs within normal limits diet advanced to low fiber tolerating well (3) Acute hyponatremia: Due to acute dehydration continued to have GI loss with high colostomy out put with liquid stool IV fluids as outlined above by nephrology Nephrology consulted -appreciate input (4) JAVIER (acute kidney injury): due to ongoing GI loss causing dehydration cr improved with IV fluid nephrology following Follow BMP closely (5) Perforation of intestine due to diverticulitis of gastrointestinal tract: 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 abdomen /pelvis this admission was unremarkable repeat CT scan ordered for ongoing diarrhea -no evidence of obstruction or perforation, no diverticulitis, (6) Pericarditis: Recently admitted 06/07 to 4/12 secondary to left-sided chest pain Found to have pericardial effusion Echo on 06/08 revealed EF 65 to 70%, grade 1 diastolic dysfunction, pericardial effusion Symptoms felt likely secondary to acute pericarditis was treated with colchicine onl hold secondary to JAVIER and pancreatitis Consulted cardiology : no further tx with Colchicine needed (7) HTN (hypertension): BP on lower side due to dehydration with on going GI loss /loose stool hold all antihypertensives pt is getting IV fluid bolus (8) Hypothyroidism: continue levothyroxine (9) GERD (gastroesophageal reflux disease): continue PPI and famotidine (10) DVT prophylaxis: Disposition: Continue to monitor in telemetry Follow up: PCP Dr. Nicholas upon discharge update given to daughter over phone Admission and Anticipated Discharge Date Admission Date: June 12, 2019 Subjective no improvement of loo Review of Systems Constitutional: + fatigue, + malaise, + weakness and + anorexia; no fever and no chills Gastrointestinal: + diarrhea/loose stools; no abdominal pain, no nausea and no vomiting Physical Exam Constitutional: WD/WN, vitals as above no acute distress Eyes: PERRL, conjunctivae normal, anicteric sclerae ENMT: external ear and nose normal, oropharynx normal Neck: trachea midline, no thyromegaly Respiratory: normal respiratory effort, lungs clear to auscultation Cardiovascular: RRR, no murmur, no edema Gastrointestinal (Abdomen): normal bowel sounds, soft, nontender, no hepatosplenomegaly Percussion/Palpation: abdomen nontender (on lower abdomen ) Musculoskeletal: no cyanosis or clubbing, extremities motor strength 5/5 Skin: no rashes, warm and dry Neurologic: PERRL, EOMI, accommodation nl, no face palsy, no dysarthria Psychiatric: A+Ox3, euthymic affect Results & Data Results & Data ([facility]) Vital Signs (Past 12 Hours) Vital Signs Temp Pulse Pulse Resp BP BP Pulse Ox 06/18/19 11:26 36.8 C 73 16 118/74 91 06/18/19 08:00 69 06/18/19 07:00 36.5 C 66 18 127/85 93 06/18/19 03:41 36.6 C 70 18 111/64 96 06/18/19 03:20 78 (1) Diarrhea Diarrhea type: unspecified type Qualified Code(s): R19.7 - Diarrhea, unspecified (2) Acute pancreatitis Acute pancreatitis complication: unspecified Pancreatitis type: unspecified pancreatitis type Qualified Code(s): K85.90 - Acute pancreatitis without necrosis or infection, unspecified
--- NOTE | 2019-06-18 15:38 | Nephrology Progress Note ---
Date of Service June 18, 2019 Assessment & Plan (1) JAVIER (acute kidney injury): Prior creatinine had been 0.8 as recently as June 08. Presenting creatinine 05/15 at 3.7; improved to 1.1 today. Prerenal acute kidney injury in the setting of copious and ongoing diarrhea/ostomy output and poor p.o. intake. Note she has not had any NSAIDs. Clinically improving Continue to avoid nephrotoxins Continue to hold Cozaar and other blood pressure meds -change to LR with no potassium at 80ml/hr No structural and or other concerning renal lesion on CT scan 06/14 Will need renal clinic follow-up at discharge (2) Hypokalemia: d/t large output from ostomy. Improved, k 4.5 today. stop kcl in the fluids (3) Acute hyponatremia: hypovolemic hypotonic hyponatremia, initially improved at acceptable rate and nearly normalized w/ aggressive volume resuscitation. -Monitor with daily BMP Admission and Anticipated Discharge Date Admission Date: June 12, 2019 Subjective Patient feels better. Output from colostomy less today. No SOB. Review of Systems Review of Systems: All systems reviewed & are unremarkable except as noted in HPI & below Physical Exam Physical Exam: General exam: Appears comfortable, no acute distress HEENT: Pupils are equal and reactive to light Neck: No JVD, neck is supple trachea is midline Respiratory system: Clear breath sounds bilaterally. Gastrointestinal: Abdomen is soft, non distended, non tender, bowel sounds are present. Colostomy bag present CVS: Regular rate and rhythm. No murmurs, rubs or gallops Musculoskeletal: No joint or muscle tenderness Extremities: Non tender, no edema, peripheral pulses are present Neuro: Oriented, no tremors, no focal neurological deficits Skin: No rashes Results & Data ([facility]) Vital Signs (Past 12 Hours) Vital Signs Temp Pulse Pulse Resp BP BP Pulse Ox 06/18/19 11:26 36.8 C 73 16 118/74 91 06/18/19 08:00 69 06/18/19 07:00 36.5 C 66 18 127/85 93 06/18/19 03:41 36.6 C 70 18 111/64 96 Laboratory Results 06/18/19 06:29 06/18/19 06:29 WBC 4.48 L RBC 3.92 L MCV 86.7 MCH 29.3 MCHC 33.8 RDW Std Deviation 41.3 RDW Coeff of Grecia 12.9 Plt Count 311 MPV 9.9
[2019-06-19] MEDS: LEVOTHYROXINE SODIUM 100 MCG TABLET PO SCH (05:27)
[2019-06-19 06:23] LABS: BUN Creatinine Ratio 10.2 (10-20); Calcium 8.2 mg/dl (8.5-10.1); Creatinine Clr Calc Pharmacy 36.5 ml/min; Est GFR (African American) 60.3; Est GFR (Non-African American) 52.1; Potassium 4.2 mmol/L (3.5-5.1)
--- NOTE | 2019-06-19 09:55 | Nephrology Progress Note ---
Date of Service June 19, 2019 Assessment & Plan (1) JAVIER (acute kidney injury): Prior creatinine had been 0.8 as recently as June 08. Presenting creatinine 05/15 at 3.7; improved to 1 today. Prerenal acute kidney injury in the setting of copious and ongoing diarrhea/ostomy output and poor p.o. intake. Note she has not had any NSAIDs. Clinically improving. Renal will sign off. Please call if additional questions or concerns Continue to avoid nephrotoxins Continue to hold Cozaar and other blood pressure meds -Stop IV fluids No structural and or other concerning renal lesion on CT scan 06/14 Will need renal clinic follow-up at discharge (2) Hypokalemia: d/t large output from ostomy. Improved, k 4.2 today. Encourage high potassium foods such as bananas, orange juice and tomatoes (3) Acute hyponatremia: hypovolemic hypotonic hyponatremia, initially improved at acceptable rate and nearly normalized w/ aggressive volume resuscitation. -Monitor with daily BMP Admission and Anticipated Discharge Date Admission Date: June 12, 2019 Subjective Patient feels better. Output from the colostomy is less. Renal function is back to normal. No shortness of breath. Review of Systems Review of Systems: All systems reviewed & are unremarkable except as noted in HPI & below Physical Exam Physical Exam: General exam: Appears comfortable, no acute distress HEENT: Pupils are equal and reactive to light Neck: No JVD, neck is supple trachea is midline Respiratory system: Clear breath sounds bilaterally. Gastrointestinal: Abdomen is soft, non distended, non tender, bowel sounds are present. Colostomy bag present CVS: Regular rate and rhythm. No murmurs, rubs or gallops Musculoskeletal: No joint or muscle tenderness Extremities: Non tender, no edema, peripheral pulses are present Neuro: Oriented, no tremors, no focal neurological deficits Skin: No rashes Results & Data ([facility]) Vital Signs (Past 12 Hours) Vital Signs Temp Pulse Pulse Resp BP BP Pulse Ox 06/19/19 07:00 36.4 C L 69 20 133/75 93 06/19/19 04:33 36.9 C 65 18 114/75 94 06/18/19 23:53 79 06/18/19 23:45 36.6 C 69 20 116/68 94 Laboratory Results 06/19/19 05:30
[2019-06-19] MEDS: LACTOBACILLUS ACIDOPHILUS (FLORANEX) TAB PO SCH ×3 (10:10→17:17)
[2019-06-19] MEDS: RASPBERRY SYRUP 5 ML UDP PO SCH ×4 (10:10→20:31)
[2019-06-19] MEDS: FAMOTIDINE 20 MG TAB PO SCH ×2 (10:10→20:31)
[2019-06-19] MEDS: VANCOMYCIN HCL 500 MG/10 ML SOLN PO SCH ×4 (10:11→20:31)
[2019-06-19] MEDS: LACTATED RINGER'S 1,000 ML IV SCH ×2 (10:16→17:41)
[2019-06-19] MEDS: CHOLESTYRAMINE LIGHT 4 GM PKT PO SCH ×3 (11:22→22:06)
[2019-06-19] MEDS: ONDANSETRON INJ 2 MG/ML 2 ML VIAL IV PRN (15:45)
[2019-06-19] MEDS ORDERED: LACTATED RINGER'S 250 ML IV ONE (16:49)
--- NOTE | 2019-06-19 19:50 | Hospitalist Progress Note ---
Date of Service June 19, 2019 Assessment & Plan (1) Diarrhea: Possible secondary to severe C. difficile colitis Discussed with GI on PO vanco dose increased to 500 mg 4 times daily loose bowel movement improved after addition of cholestyramine CT abdomen /pelvis shows nonspecific colitis no evidence of obstruction no diverticulitis Continue isolation precaution SEVERE DEHYDRATION , ATN /OLIGURIC ; resolved renal function improved to baseline cont IV fluid as pt is continued to have multiple episodes of loose watery bowel movements Appreciate input from nephrology History of diastolic CHF Patient's recent echo on 06/16/2019, normal ejection fraction/grade 1 diastolic dysfunction/HFpEF vol status stable getting IV fluid for dehydration /GI loss no complain of chest pain or SOB t (2) Acute pancreatitis: resolved presents to ED secondary to epigastric pain and nausea x2 days. symptoms as resolved completely lipase level normalized appreciate input from GI MRCP : no gall bladder pathology GI evaluation requested because of ongoing profuse diarrhea, Added on Questran LFTs within normal limits diet advanced to low fiber tolerating well out pt EUS (3) Acute hyponatremia: Due to acute dehydration with on going have GI loss corrected with IV fluid Nephrology consulted -appreciate input (4) JAVIER (acute kidney injury): resolved due to ongoing GI loss causing dehydration cr improved with IV fluid nephrology following Follow BMP closely (5) Perforation of intestine due to diverticulitis of gastrointestinal tract: 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 abdomen /pelvis this admission was unremarkable (6) Pericarditis: Recently admitted 06/07 to 06/09 secondary to left-sided chest pain Found to have pericardial effusion Echo on 06/08 revealed EF 65 to 70%, grade 1 diastolic dysfunction, pericardial effusion Symptoms felt likely secondary to acute pericarditis was treated with colchicine onl hold secondary to JAVIER and pancreatitis Consulted cardiology : no further tx with Colchicine needed (7) HTN (hypertension): BP on lower side due to dehydration with on going GI loss /loose stool hold all antihypertensives pt is getting IV fluid bolus (8) Hypothyroidism: continue levothyroxine (9) GERD (gastroesophageal reflux disease): continue PPI and famotidine (10) DVT prophylaxis: Disposition: Continue to monitor in telemetry Follow up: PCP Dr. Nicholas upon discharge update given to daughter over phone Admission and Anticipated Discharge Date Admission Date: June 12, 2019 Subjective having loose BM in colostomy no abdominal pain , no fever or chills appetite fair stable vitals renal function improved to baseline Review of Systems Constitutional: + fatigue, + malaise, + weakness and + anorexia; no fever and no chills Gastrointestinal: + diarrhea/loose stools; no abdominal pain, no nausea and no vomiting Physical Exam Constitutional: WD/WN, vitals as above no acute distress Eyes: PERRL, conjunctivae normal, anicteric sclerae ENMT: external ear and nose normal, oropharynx normal Neck: trachea midline, no thyromegaly Respiratory: normal respiratory effort, lungs clear to auscultation Cardiovascular: RRR, no murmur, no edema Gastrointestinal (Abdomen): normal bowel sounds, soft, nontender, no hepatosplenomegaly Percussion/Palpation: abdomen nontender (on lower abdomen ) Musculoskeletal: no cyanosis or clubbing, extremities motor strength 5/5 Skin: no rashes, warm and dry Neurologic: PERRL, EOMI, accommodation nl, no face palsy, no dysarthria Psychiatric: A+Ox3, euthymic affect Results & Data Results & Data ([facility]) Vital Signs (Past 12 Hours) Vital Signs Temp Pulse Resp BP Pulse Ox 06/19/19 15:40 36.5 C 73 16 136/62 95 06/19/19 15:12 36.5 C 65 20 127/77 95 06/19/19 12:00 37.1 C 69 18 132/69 93 (1) Diarrhea Diarrhea type: unspecified type Qualified Code(s): R19.7 - Diarrhea, unspecified (2) Acute pancreatitis Acute pancreatitis complication: unspecified Pancreatitis type: unspecified pancreatitis type Qualified Code(s): K85.90 - Acute pancreatitis without necrosis or infection, unspecified
--- NOTE | 2019-06-19 19:53 | Hospitalist Progress Note ---
Date of Service June 19, 2019 Assessment & Plan (1) Diarrhea: Possible secondary to severe C. difficile colitis Discussed with GI on PO vanco dose was increased to 500 mg 4 times daily- will reduce it to 250 mg PO QID -needs total 14 days of tx per GI loose bowel movement improved after addition of cholestyramine CT abdomen /pelvis shows nonspecific colitis no evidence of obstruction no diverticulitis Continue isolation precaution SEVERE DEHYDRATION , ATN /OLIGURIC ; resolved renal function improved to baseline -Cr 1 today cont IV fluid as pt is continued to have multiple episodes of loose watery bowel movements Appreciate input from nephrology History of diastolic CHF Patient's recent echo on 06/16/2019, normal ejection fraction/grade 1 diastolic dysfunction/HFpEF vol status stable getting IV fluid for dehydration /GI loss no complain of chest pain or SOB losartan on hold for dehydration /JAVIER (2) Acute pancreatitis: resolved presents to ED secondary to epigastric pain and nausea x2 days. symptoms as resolved completely lipase level normalized appreciate input from GI MRCP : no gall bladder pathology GI evaluation requested because of ongoing profuse diarrhea, Added Questran LFTs within normal limits diet advanced to low fiber tolerating well out pt EUS (3) Acute hyponatremia: Due to acute dehydration with on going have GI loss cont IV fluid Nephrology consulted -appreciate input (4) JAVIER (acute kidney injury): resolved due to ongoing GI loss causing dehydration cr improved with IV fluid nephrology following Follow BMP closely (5) Perforation of intestine due to diverticulitis of gastrointestinal tract: 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 abdomen /pelvis this admission was unremarkable (6) Pericarditis: Recently admitted 06/07 to 06/09 secondary to left-sided chest pain Found to have pericardial effusion Echo on 06/08 revealed EF 65 to 70%, grade 1 diastolic dysfunction, pericardial effusion Symptoms felt likely secondary to acute pericarditis was treated with colchicine onl hold secondary to JAVIER and pancreatitis Consulted cardiology : no further tx with Colchicine needed (7) HTN (hypertension): BP on lower side due to dehydration with on going GI loss /loose stool hold all antihypertensives pt is getting IV fluid bolus (8) Hypothyroidism: continue levothyroxine (9) GERD (gastroesophageal reflux disease): continue PPI and famotidine (10) DVT prophylaxis: Disposition: Continue to monitor in telemetry Follow up: PCP Dr. Nicholas upon discharge update given to daughter over phone Admission and Anticipated Discharge Date Admission Date: June 12, 2019 Subjective improvement of diarrhea no abdominal pain , no fever or chills appetite fair stable vitals renal function improved to baseline Physical Exam Constitutional: WD/WN, vitals as above no acute distress Eyes: PERRL, conjunctivae normal, anicteric sclerae ENMT: external ear and nose normal, oropharynx normal Neck: trachea midline, no thyromegaly Respiratory: normal respiratory effort, lungs clear to auscultation Cardiovascular: RRR, no murmur, no edema Gastrointestinal (Abdomen): normal bowel sounds, soft, nontender, no hepatosplenomegaly Percussion/Palpation: abdomen nontender (on lower abdomen ) Musculoskeletal: no cyanosis or clubbing, extremities motor strength 5/5 Skin: no rashes, warm and dry Neurologic: PERRL, EOMI, accommodation nl, no face palsy, no dysarthria Psychiatric: A+Ox3, euthymic affect Results & Data Results & Data ([facility]) Vital Signs (Past 12 Hours) Vital Signs Temp Pulse Resp BP Pulse Ox 06/19/19 15:40 36.5 C 73 16 136/62 95 06/19/19 15:12 36.5 C 65 20 127/77 95 06/19/19 12:00 37.1 C 69 18 132/69 93 (1) Diarrhea Diarrhea type: unspecified type Qualified Code(s): R19.7 - Diarrhea, unspecified (2) Acute pancreatitis Acute pancreatitis complication: unspecified Pancreatitis type: unspecified pancreatitis type Qualified Code(s): K85.90 - Acute pancreatitis without necrosis or infection, unspecified
[2019-06-20] MEDS: LACTATED RINGER'S 1,000 ML IV SCH ×2 (03:55→13:43)
[2019-06-20] MEDS: LEVOTHYROXINE SODIUM 100 MCG TABLET PO SCH (05:49)
[2019-06-20 06:18] LABS: BUN Creatinine Ratio 10.2 (10-20); Calcium 8.5 mg/dl (8.5-10.1); Creatinine Clr Calc Pharmacy 40.6 ml/min; Est GFR (African American) 68.5; Est GFR (Non-African American) 59.1; Potassium 4.4 mmol/L (3.5-5.1)
[2019-06-20] MEDS: LACTOBACILLUS ACIDOPHILUS (FLORANEX) TAB PO SCH ×3 (07:47→17:20)
[2019-06-20] MEDS: VANCOMYCIN HCL 500 MG/10 ML SOLN PO SCH ×4 (07:48→21:09)
[2019-06-20] MEDS: FAMOTIDINE 20 MG TAB PO SCH ×2 (07:48→21:09)
[2019-06-20] MEDS: RASPBERRY SYRUP 5 ML UDP PO SCH ×4 (07:49→21:09)
[2019-06-20] MEDS: CHOLESTYRAMINE LIGHT 4 GM PKT PO SCH ×3 (10:28→21:09)
--- NOTE | 2019-06-20 19:15 | Hospitalist Progress Note ---
Date of Service June 20, 2019 Assessment & Plan (1) Acute pancreatitis: Present on admission with epigastric pain associated with nausea CT abd/pelvis showed multiple fluid-filled small bowel loops with scattered air- fluid levels. There are scattered colonic air-fluid levels. There are no transition zones indicate bowel obstruction. There is a left lower quadrant diverting colostomy. There is a Contreras's pouch. MRCP showed no evidence for choledocholithiasis. RUQ u/s showed unremarkable sonographic assessment of the right upper quadrant noting status post cholecystectomy. AST 114, ALK 150 and Lipase 1748 on admission Received IVF lipase and LFT normalized diet advanced to low fiber and tolerated well Will need to follow up with GI to arrange for outpatient EUS Clinically improves (2) Diarrhea: Possible secondary to severe C. difficile colitis CT abdomen/pelvis showed nonspecific colitis no evidence of obstruction no diverticulitis GI was consulted On PO vanco 500 mg 4 times daily, will reduce it to 250 mg PO QID -needs total 14 days of tx per GI Continue cholestyramine Continue monitor electrolytes History of diastolic CHF Patient's recent echo on 06/16/2019, normal ejection fraction/grade 1 diastolic dysfunction/HFpEF Will monitor closely for volume overload Stable (3) Acute hyponatremia: Mostly related to diarrhea/GI loss Received IVF Na improved to 137 Nephrology consulted -appreciate input Continue monitor (4) JAVIER (acute kidney injury): Related to dehydration and diarrhea Creatinine on admission 1.6 Creatinine back to normal Will discontinue IVF Continue to avoid nephrotoxins Continue to hold [facility] on board Continue monitor BMP (5) Perforation of intestine due to diverticulitis of gastrointestinal tract: 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 abdomen /pelvis this admission was unremarkable (6) Pericarditis: Recently admitted 06/07 to 06/09 secondary to left-sided chest pain Found to have pericardial effusion Echo on 06/08 revealed EF 65 to 70%, grade 1 diastolic dysfunction, pericardial effusion Symptoms felt likely secondary to acute pericarditis was treated with colchicine on hold secondary to JAVIER and pancreatitis Consulted cardiology : no further tx with Colchicine needed (7) HTN (hypertension): due to dehydration with on going GI loss /loose stool Continue to hold all antihypertensives BP stable (8) Hypothyroidism: continue levothyroxine (9) GERD (gastroesophageal reflux disease): continue PPI and famotidine (10) [facility] Admission and Anticipated Discharge Date Admission Date: June 12, 2019 Subjective Pt was seen and examined Lying in bed with no distress Pt said that she feels much better today She said that she continues to have diarrhea but seems to improves a little She said that her abdomen feels better Denies any chest pain, palpitation, dizziness and SOB Physical Exam Physical Exam: General- No acute distress Head- atraumatic Eyes- PERRL, EOMI, ENT- oropharynx clear Neck- supple, no JVD Lungs- clear to auscultation Heart- regular rhythm; no murmur Abdomen- normal bowel sounds, nontender, +ostomy bag Extremities- no calf tenderness Neuro- alert, oriented x 3; PERRL, EOMI; no facial palsy; no dysarthria Skin- warm & dry Results & Data Results & Data ([facility]) Vital Signs (Past 12 Hours) Vital Signs Temp Pulse Resp BP Pulse Ox 06/20/19 15:30 37.0 C 76 18 133/79 96 (1) Diarrhea Diarrhea type: unspecified type Qualified Code(s): R19.7 - Diarrhea, unspecified (2) Acute pancreatitis Acute pancreatitis complication: unspecified Pancreatitis type: unspecified pancreatitis type Qualified Code(s): K85.90 - Acute pancreatitis without necrosis or infection, unspecified
[2019-06-21] MEDS: LEVOTHYROXINE SODIUM 100 MCG TABLET PO SCH (06:04)
[2019-06-21 06:38] LABS: BUN Creatinine Ratio 12.1 (10-20); Calcium 8.4 mg/dl (8.5-10.1); Creatinine Clr Calc Pharmacy 41.5 ml/min; Est GFR (African American) 69.5; Est GFR (Non-African American) 59.9
[2019-06-21] MEDS: FAMOTIDINE 20 MG TAB PO SCH (07:42)
[2019-06-21] MEDS: RASPBERRY SYRUP 5 ML UDP PO SCH ×3 (07:42→17:11)
[2019-06-21] MEDS: VANCOMYCIN HCL 500 MG/10 ML SOLN PO SCH ×3 (07:42→17:11)
[2019-06-21] MEDS: LACTOBACILLUS ACIDOPHILUS (FLORANEX) TAB PO SCH ×3 (07:42→17:19)
[2019-06-21] MEDS: CHOLESTYRAMINE LIGHT 4 GM PKT PO SCH ×2 (10:04→14:21)
--- NOTE | 2019-06-21 13:58 | Hospitalist Progress Note ---
Date of Service June 21, 2019 Assessment & Plan (1) Acute pancreatitis: Present on admission with epigastric pain associated with nausea CT abd/pelvis showed multiple fluid-filled small bowel loops with scattered air- fluid levels. There are scattered colonic air-fluid levels. There are no transition zones indicate bowel obstruction. There is a left lower quadrant diverting colostomy. There is a Contreras's pouch. MRCP showed no evidence for choledocholithiasis. RUQ u/s showed unremarkable sonographic assessment of the right upper quadrant noting status post cholecystectomy. AST 114, ALK 150 and Lipase 1748 on admission Received IVF lipase and LFT normalized diet advanced to low fiber and tolerated well Will need to follow up with GI to arrange for outpatient EUS Clinically improves (2) Diarrhea: Possible secondary to severe C. difficile colitis CT abdomen/pelvis showed nonspecific colitis no evidence of obstruction no diverticulitis GI was consulted On PO vanco 500 mg 4 times daily, will reduce it to 250 mg PO QID -needs total 14 days of tx per GI Case discussed with GI Continue cholestyramine Continue monitor electrolytes History of diastolic CHF Patient's recent echo on 06/16/2019, normal ejection fraction/grade 1 diastolic dysfunction/HFpEF Will monitor closely for volume overload Stable (3) Acute hyponatremia: Mostly related to diarrhea/GI loss Received IVF Na improved to 137 Nephrology consulted -appreciate input Continue monitor (4) JAVIER (acute kidney injury): Related to dehydration and diarrhea Creatinine on admission 1.6 Creatinine back to normal Will discontinue IVF Continue to avoid nephrotoxins Continue to hold [facility] on board Check BMP in 1-2 weeks (5) Perforation of intestine due to diverticulitis of gastrointestinal tract: 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 abdomen /pelvis this admission was unremarkable (6) Pericarditis: Recently admitted 06/07 to 06/09 secondary to left-sided chest pain Found to have pericardial effusion Echo on 06/08 revealed EF 65 to 70%, grade 1 diastolic dysfunction, pericardial effusion Symptoms felt likely secondary to acute pericarditis was treated with colchicine on hold secondary to JAVIER and pancreatitis Consulted cardiology : no further tx with Colchicine needed (7) HTN (hypertension): due to dehydration with on going GI loss /loose stool Amlodipine and metoprolol resumed on discharge Will continue to hold Losartan Continue to monitor blood pressure and if BP starts to elevate, will resume losartan at a low dose BP stable (8) Hypothyroidism: continue levothyroxine (9) GERD (gastroesophageal reflux disease): continue PPI and famotidine (10) DVT prophylaxis: On [facility] Admission and Anticipated Discharge Date Admission Date: June 12, 2019 Subjective Pt was seen and examined Lying in bed with no distress Pt said that she feels fine She said that her diarrhea improves significantly She said that she has not changed the ostomy bag yet She said that in the last few days the diarrhea was so bad she was changing her ostomy bag every 30minutes Update provided to her daughter Mary Denies any chest pain, palpitation, dizziness and SOB Physical Exam Physical Exam: General- No acute distress Head- atraumatic Eyes- PERRL, EOMI, ENT- oropharynx clear Neck- supple, no JVD Lungs- clear to auscultation Heart- regular rhythm; no murmur Abdomen- normal bowel sounds, nontender, +ostomy bag Extremities- no calf tenderness Neuro- alert, oriented x 3; PERRL, EOMI; no facial palsy; no dysarthria Skin- warm & dry Results & Data Results & Data ([facility]) Vital Signs (Past 12 Hours) Vital Signs Temp Pulse Pulse Resp BP BP Pulse Ox 06/21/19 13:03 36.7 C 70 76 18 136/76 162/74 H 95 06/21/19 07:28 36.7 C 70 18 136/76 95 (1) Diarrhea Diarrhea type: unspecified type Qualified Code(s): R19.7 - Diarrhea, unspecified (2) Acute pancreatitis Acute pancreatitis complication: unspecified Pancreatitis type: unspecified pancreatitis type Qualified Code(s): K85.90 - Acute pancreatitis without necrosis or infection, unspecified
[2019-06-21] MEDS ORDERED: AMLODIPINE BESYLATE 5 MG TAB PO SCH (14:00)
--- NOTE | 2019-06-22 08:48 | Discharge Summary ---
Date of Service June 21, 2019 Admission HPI Per Admitting Provider This is an 84-year-old female who has significant past medical history of HTN, hypothyroidism, GERD, HH, history of perforated colon status post sigmoid resection and colostomy in 2019, diverticulosis who presents to ED secondary to epigastric pain and nausea x2 days. Of significance patient has had 2 recent hospitalizations. First was a 05/25 to 05/27 secondary to epigastric pain in which she was diagnosed with pneumoperitoneum felt likely due to diverticulosis. She was treated conservatively with oral antibiotics Augmentin for a 10-day course. She just recently completed this course. Unfortunately she was r ehospitalized on 06/07 to 06/09 secondary to left-sided chest pain. CT scan revealed small pericardial effusion and this was confirmed by echocardiogram. She did have EKG changes. She was seen and evaluated by cardiology who felt symptoms were likely secondary to pericarditis. She was placed on colchicine 0.6 mg twice daily. Since discharge on 06/09 she has been experiencing epigastric abdominal pain that is constant, no relief with Pepto-Bismol, nothing made better or worse, no radiation. She was concerned she had another pneumoperitoneum. She also has been experiencing nausea and few episodes of emesis. Overall today she has had significant decreased appetite. Further symptoms include lightheadedness and dizziness with standing, decreased urinary frequency and poor oral intake. She denies any fever, chills, sweats, syncope, chest pain, shortness of breath, palpitations, cough, hematochezia, hematemesis, melena. She currently does have a colostomy. She stated yesterday she had significant amount of liquid stool but today feels it is more formed. She states her symptoms of chest pain due to pericarditis have completely resolved. In ED she remained hemodynamically stable. Lab abnormalities include leukocytosis at 19 K, sodium 124, K4.5, BUN 32, creatinine 2.15, glucose 136, lactic acid 1.8, AST 114, alk phos 150, troponin WNL, lipase 1748. Chest x-ray revealed stable mild left basilar atelectatic change. Ct scan abd/pelvis: 1. No evidence of bowel obstruction. No evidence of free air, 2. Postsurgical changes of a sigmoid resection with Contreras's pouch and left-sided colostomy, 3. No renal, ureteral, or bladder calculi identified, 4. Surgically absent gallbladder. Stable common bile duct dilatation. 5. Normal appendix She received IVF and IV zofran in ED and feels much improved since arrival. Admission Exam Per Admitting Provider Constitutional: WD/WN, Elderly, F, vitals as above, NAD, sitting up in bed, pleasant, conversing easily Head: Normocephalic, Atraumatic Eyes: PERRL, conjunctivae normal, anicteric sclerae ENMT: external ear and nose normal, oropharynx normal membranes dry Neck: trachea midline, no thyromegaly normal visual inspection Respiratory: normal respiratory effort, lungs clear to auscultation, no wheeze, rales, rhonchi. Normal insp/exp effort, no accessory muscle use Cardiovascular: RRR, no murmur, no edema Vessels: no JVD or carotid bruit Chest: normal inspection of chest Abdomen: normal bowel sounds, soft, nontender, no hepatosplenomegaly , +LLQ colostomy with brown stool present Musculoskeletal: no cyanosis or clubbing, extremities motor strength 5/5 Skin: no rashes, warm and dry normal turgor Neurologic: PERRL, EOMI, accommodation nl, no face palsy, no dysarthria CN's II-XI intact bilaterally and moves all extremities Psychiatric: A+Ox3, euthymic affect Lymphatic: no cervical or axillary lymphadenopathy : deferred Principal Diagnosis Acute pancreatitis: Diarrhea History of diastolic CHF Acute hyponatremia: JAVIER (acute kidney injury): Perforation of intestine due to diverticulitis of gastrointestinal tract: Pericarditis: HTN (hypertension): Hypothyroidism: GERD (gastroesophageal reflux disease): Discharge Exam General- No acute distress Head- atraumatic Eyes- PERRL, EOMI, ENT- oropharynx clear Neck- supple, no JVD Lungs- clear to auscultation Heart- regular rhythm; no murmur Abdomen- normal bowel sounds, nontender, +ostomy bag Extremities- no calf tenderness Neuro- alert, oriented x 3; PERRL, EOMI; no facial palsy; no dysarthria Skin- warm & dry Discharge Data Allergies Allergy/AdvReac Type Severity Reaction Status Date / Time codeine AdvReac Intermediate NAUSEA, Verified 06/12/19 18:36 VOMITING colchicine AdvReac Intermediate GI side Verified 06/12/19 20:55 effects fentanyl AdvReac Intermediate vomiting Verified 06/12/19 18:36 Consultations 04/14/20 20:58 ED Decision to Admit Stat 06/12/19 22:37 Consult Cardiology Routine Consult Gastroenterology Routine 06/13/19 03:41 Consult Nephrology Routine Ordered Studies 06/12/19 18:45 CT abd pelvis wo con Stat 06/13/19 09:46 MR MRCP Routine 06/16/19 08:00 CT abd pelvis wo con Routine 06/16/19 12:06 US liver Routine XR chest 1V portable CLINICAL HISTORY: Pericardial effusion COMPARISON STUDY: 06/08/2019 FINDINGS: The heart is normal in size. There is elevation the right hemidiaphragm. There is no failure. There is no focal pulmonary consolidation. There are mild left basilar atelectatic changes.[ IMPRESSION: 1. Elevation the right hemidiaphragm 2. Stable mild left basilar atelectatic change ACT 112: Negative or not required by law. Electronically signed by: Bryn Hardy M.D. 06/12/2019 6:28 PM Dictated: 06/12/191826 Transcribed: 06/12/191826 CT SCAN OF THE ABDOMEN AND PELVIS WITHOUT CONTRAST CLINICAL HISTORY: Nausea, vomiting, upper abdominal pain COMPARISON STUDY: 06/08/2019 TECHNIQUE: CT scan of the abdomen and pelvis was performed from the lung bases to the proximal femurs. Images are reviewed in the axial, sagittal, and coronal planes. IV contrast was not administered for this examination. A dose lowering technique was utilized adhering to the principles of ALARA. CT DOSE: 492.43 mGy.cm FINDINGS: Lower chest: There is minor subpleural dependent reticulation. There is a trace pericardial effusion. Liver: There is a stable 9 mm right lobe hepatic hypodensity. There is stable mild ductal prominence. Gallbladder: Surgically absent. The common bile duct remains dilated measuring 13 mm. Spleen: Normal in size and attenuation. Pancreas: Unremarkable. Adrenal glands: Unremarkable. Kidneys: No renal, ureteral, or bladder calculi are visualized. Bowel: There are multiple fluid-filled small bowel loops with scattered air- fluid levels. There are scattered colonic air-fluid levels. There are no transition zones indicate bowel obstruction. There is a left lower quadrant diverting colostomy. There is a Contreras's pouch. The appendix appears normal. Peritoneum: There is no intraperitoneal free air or abdominal ascites. Vasculature: The abdominal aorta is normal in course and caliber. Adenopathy: None. Pelvic viscera: The bladder, and pelvic viscera are unremarkable. Skeletal structures: No destructive osseous lesions are seen. IMPRESSION: 1. No evidence of bowel obstruction. No evidence of free air 2. Postsurgical changes of a sigmoid resection with Contreras's pouch and left- sided colostomy 3. No renal, ureteral, or bladder calculi identified 4. Surgically absent gallbladder. Stable common bile duct dilatation. 5. Normal appendix ACT 112: Negative or not required by law. Electronically signed by: Bryn Hardy M.D. 06/12/2019 7:37 PM Study: MRCP HISTORY: Pain. Nausea. COMPARISON: CT abdomen pelvis 06/12/2019 FINDINGS: Unchanged chronic biliary ductal distention. This is unaltered as compared to the prior study. Bowel pattern within limitations of this exam is nonobstructive. No evidence for choledocholithiasis. Kidneys negative for hydronephrosis. No evidence for pancreatic duct distention. Signal characteristics of the bony structures are unremarkable. No significant upper abdominal adenopathy. IMPRESSION: 1. Prior cholecystectomy. 2. Chronic biliary ductal distention. 3. No evidence for choledocholithiasis. 4. No significant additional information compared to the prior CT study. Electronically signed by: Reji Colin M.D. 06/13/2019 4:27 PM Dictated: 06/13/19 1622 Transcribed: 06/13/[address] SCAN OF THE ABDOMEN AND PELVIS WITHOUT IV CONTRAST CLINICAL HISTORY: Generalized abdominal pain. Diarrhea. COMPARISON STUDY: Abdominal CT scans dated 06/12/2019 and 06/08/2019. TECHNIQUE: CT scan of the abdomen and pelvis is performed from the lung bases to the proximal femora. Images are reviewed in the axial, sagittal, and coronal planes. IV contrast was not administered for this examination. Note that the examination was performed in suboptimal fashion without oral and IV contrast. A dose lowering technique was utilized adhering to the principles of ALARA. CT DOSE: 405.62 mGy.cm FINDINGS: Lung bases: The heart is normal in size noting trace pericardial effusion. There are coronary artery calcifications. Scarring/atelectasis is present at both lung bases. No airspace consolidation is seen typical for pneumonia. Liver: The unenhanced liver is normal in size, contour, and attenuation. There is moderate intrahepatic biliary ductal dilatation. A 1.5 cm cyst or hemangioma in the right lobe is unchanged from previous. Gallbladder: Surgically absent. Spleen: Normal in size and attenuation. Pancreas: Moderately atrophic and grossly unremarkable. Adrenal glands: Unremarkable. Kidneys: The unenhanced kidneys are atrophic and without hydronephrosis. No renal calculi are identified. There is no evidence of contour deforming mass lesion. Abdominal vasculature: The abdominal aorta is normal in course and caliber noting moderate to advanced atherosclerotic calcification. Bowel: There is postoperative change from sigmoid colon resection with left lower quadrant colostomy and rectal stump formation. No bowel obstruction is seen. The small bowel is fluid-filled. Liquid stool is noted in the colon. There is mild diverticulosis of the remaining colon without CT evidence of acute diverticulitis. There is also diverticulosis of the small bowel and duodenum. The appendix is well-visualized and normal. Peritoneum: There is no intraperitoneal free air or abdominal ascites. A midline surgical scar is noted. Lymphadenopathy: None. Pelvic viscera: The bladder is decompressed around a Freeman catheter. The uterus and adnexa are normal as visualized. Skeletal structures: The skeletal structures are osteopenic. There is moderate lumbosacral spondylosis. No lytic or blastic lesions are seen. IMPRESSION: 1. Suboptimal examination without oral and IV contrast. 2. There is postoperative change from sigmoid colon resection and left lower quadrant colostomy. No bowel obstruction is identified. 3. The small bowel study with fluid and there is a gallstone the colon. Correlate clinically for evidence of a nonspecific enterocolitis. 4. Additional findings as above. ACT 112: Negative or not required by law. Electronically signed by: Remigio Lux M.D. 06/16/2019 9:21 AM Dictated: 06/16/19 0914 Transcribed: 06/16/19 0914 ULTRASOUND RIGHT UPPER QUADRANT ABDOMEN CLINICAL HISTORY: Cholelithiasis. COMPARISON STUDY: Abdominal CT performed the same day 06/16/2019. TECHNIQUE: Real-time, grayscale, and color flow sonography of the right upper quadrant of the abdomen was performed. Images are reviewed in the transverse and longitudinal planes. FINDINGS: Liver: The liver is normal in size and slightly heterogeneous in echotexture. There is no intrahepatic biliary ductal dilatation. The main portal vein is patent. Gallbladder: The gallbladder is surgically absent. The common bile duct measures up to 0.8 cm in diameter. Pancreas: Visualized portions of the pancreatic head and body are normal in appearance. The splenic vein is patent. Right kidney: Survey images of the right kidney demonstrate cortical atrophy. Echotexture is normal. There is no hydronephrosis. Ascites: None. IMPRESSION: Unremarkable sonographic assessment of the right upper quadrant noting status post cholecystectomy. ACT 112: Negative or not required by law. Electronically signed by: Remigio Lux M.D. 06/16/2019 5:22 PM Dictated: 06/16/19 1721 Transcribed: 06/16/19 172 SINGLE VIEW CHEST CLINICAL HISTORY: Dyspnea. FINDINGS: An AP, portable, upright chest radiograph is compared to study dated 06/12/2019. The examination is degraded by portable technique and patient rotation. The cardiomediastinal silhouette is unremarkable. There is mild elevation of the right hemidiaphragm and bibasilar atelectasis. The lungs and pleural spaces are otherwise clear. No pneumothorax is seen. The skeletal structures are osteopenic. The bony thorax is grossly intact. IMPRESSION: No active disease in the chest. ACT 112: Negative or not required by law. Electronically signed by: Remigio Lux M.D. 06/16/2019 2:02 PM Dictated: 06/16/19 1401 Transcribed: 06/16/19 1401 XR chest 1V portable HISTORY: 84 years-old Female chest pain. Acute atypical chest pain with fluid overload COMPARISON: Chest radiograph 06/16/2019 TECHNIQUE: Portable AP view of the chest FINDINGS: Cardiac silhouette is upper limits of normal in size. Unchanged right hemidiaphragmatic elevation. Mild linear left lung base scarring/atelectasis is unchanged. No pneumothorax, large pleural effusion, overt pulmonary edema or airspace consolidation typical for pneumonia. Degenerative changes of the shoulders and spine. IMPRESSION: No acute process. ACT 112: Negative or not required by law. The above report was generated using voice recognition software. It may contain grammatical, syntax or spelling errors. Electronically signed by: Dima Lama M.D. 06/17/2019 2:56 PM Dictated: 06/17/19 1455 Transcribed: 06/17/19 145 Hospital Course (1) Acute pancreatitis: Present on admission with epigastric pain associated with nausea CT abd/pelvis showed multiple fluid-filled small bowel loops with scattered air- fluid levels. There are scattered colonic air-fluid levels. There are no transition zones indicate bowel obstruction. There is a left lower quadrant diverting colostomy. There is a Contreras's pouch. MRCP showed no evidence for choledocholithiasis. RUQ u/s showed unremarkable sonographic assessment of the right upper quadrant noting status post cholecystectomy. AST 114, ALK 150 and Lipase 1748 on admission Received IVF lipase and LFT normalized diet advanced to low fiber and tolerated well Will need to follow up with GI to arrange for outpatient EUS Clinically improves (2) Diarrhea: Possible secondary to severe C. difficile colitis CT abdomen/pelvis showed nonspecific colitis no evidence of obstruction no diverticulitis GI was consulted On PO vanco 500 mg 4 times daily, will reduce it to 250 mg PO QID -needs total 14 days of tx per GI Case discussed with GI Continue cholestyramine Continue monitor electrolytes History of diastolic CHF Patient's recent echo on 06/16/2019, normal ejection fraction/grade 1 diastolic dysfunction/HFpEF Will monitor closely for volume overload Stable (3) Acute hyponatremia: Mostly related to diarrhea/GI loss Received IVF Na improved to 137 Nephrology consulted -appreciate input Continue monitor (4) JAVIER (acute kidney injury): Related to dehydration and diarrhea Creatinine on admission 1.6 Creatinine back to normal Will discontinue IVF Continue to avoid nephrotoxins Continue to hold [facility] on board Check BMP in 1-2 weeks (5) Perforation of intestine due to diverticulitis of gastrointestinal tract: 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 abdomen /pelvis this admission was unremarkable (6) Pericarditis: Recently admitted 06/07 to 06/09 secondary to left-sided chest pain Found to have pericardial effusion Echo on 06/08 revealed EF 65 to 70%, grade 1 diastolic dysfunction, pericardial effusion Symptoms felt likely secondary to acute pericarditis was treated with colchicine on hold secondary to JAVIER and pancreatitis Consulted cardiology : no further tx with Colchicine needed (7) HTN (hypertension): due to dehydration with on going GI loss /loose stool Amlodipine and metoprolol resumed on discharge Will continue to hold Losartan Continue to monitor blood pressure and if BP starts to elevate, will resume losartan at a low dose BP stable (8) Hypothyroidism: continue levothyroxine (9) GERD (gastroesophageal reflux disease): continue PPI and famotidine (10) DVT prophylaxis: On SCDs Total Time Total Time Spent Total Time Spent (In Minutes): 35 minutes Total Time Includes: Examination of the Patient, Discharge Planning, Medication Reconciliation, Communication With Other Providers and Other Discharge Plan Discharge Items Patient Disposition: Home - Home Health Services Reason For Visit: HYPONATREMIA,ARF Discharge Diagnosis: Acute pancreatitis: Diarrhea History of diastolic CHF Acute hyponatremia: JAVIER (acute kidney injury): Perforation of intestine due to diverticulitis of gastrointestinal tract: Pericarditis: HTN (hypertension): Hypothyroidism: GERD (gastroesophageal reflux disease): Activity: Resume your previous activity Non-emergency contact: Primary Care Provider and Wire Technician Call non-emergency contact if: you have any medication questions Follow-up/Referrals: Nahid Nicholas [Primary Care Provider] - Diet: Heart Healthy and Low Fiber Addtl Attending Provider Instructions: Follow up with your primary care provider Dr. Nicholas within 1 week Follow up with Gastroenterology in 3 to 4 weeks to evaluate for possible outpatient endoscopy ultrasound Check BMP in 1-2 weeks to monitor your electrolytes and renal function Continue to hold the Losartan for now Continue monitor your blood pressure If blood pressure starts to elevate, your physician will resume the Losartan Complete the course of the Vancomycin oral Fall precaution Pending Studies at Discharge: No Stand-Alone Forms: My Net[employer], Smoking Cessation Medications and DC Order Prescriptions: New Cholestyramine Light 4 gram Powder In Packet 4 g PO TID@1000,1500,2200 Qty: 30 RF: 0 vancomycin 250 mg capsule 250 mg PO Q6H 7 Days Qty: 28 RF: 0 ondansetron HCl [Zofran] 4 mg tablet 4 mg PO Q12H PRN (Reason: nausea and vomiting) Qty: 30 RF: 0 Continued metoprolol tartrate [Lopressor] 100 mg tablet 100 mg PO QAM RF: 0 famotidine [Pepcid] 40 mg tablet 40 mg PO BID RF: 0 amlodipine [Norvasc] 5 mg tablet 5 mg PO QAM RF: 0 levothyroxine 100 mcg tablet 100 mcg PO QAM RF: 0 pantoprazole [Protonix] 40 mg tablet,delayed release (DR/EC) 40 mg PO QPM RF: 0 calcitriol [Rocaltrol] 0.25 mcg capsule 0.25 mcg PO Q OTHER DAY RF: 0 cholecalciferol (vitamin D3) [Vitamin D3] 50 mcg (2,000 unit) Tablet 2,000 unit PO QAM RF: 0 acetaminophen [Tylenol] 325 mg Tablet 325 mg PO QID PRN (Reason: Pain) RF: 0 Lactobacillus acidoph-L.bulgar [Floranex] 1 million cell tablet 4 tab PO TIDM RF: 0 Discontinued losartan [Cozaar] 100 mg tablet 100 mg PO QAM RF: 0 colchicine [Colcrys] 0.6 mg Tablet 0.6 mg PO BID Qty: 30 RF: 0 Discharge Orders: Discharge Order (Routine); Ordered 06/21/19 Ordered By: Narda Andersen/Other Patient Handouts: Diet Low Residue Admission Data Admit Date/Time: 06/12/19 21:25 Attending Provider: Narda Farah Admit Provider: Anshul Taylor Primary Care Provider: Nahid Nicholas Other Providers: Anshul Taylor ; Andrea Lozada ; Christian Wiseman ; Skylar Schneider ; Imer Valdes ; Madison Navarro ; Hong Chaudhary ; Leonie Amezcua ; Yenifer Sinclair ; Danika Del Toro ; Casper Matias ; Rick Ramos ; Flor Mckeon ; Rizwana Rivera ; Evelina Hdz ; Delores Knutson ; Tamiko Canales ; Janice Kat ; Tyrone Chau ; Melchor Marin ; Jocelin Plata ; Maribel Santos ; Eloina Potts H. Other Interventions: Discharge Summary Assessment (RN) Last Done: 06/21/19 13:03 DC Date/Time DO NOT enter until pt leaves facility: 06/21/19 17:51
== END 2019-06-21 17:51 | disposition home health service (06) | DRG 371 ==
LOC: ED 17:31 → SUATTDRO 21:25 → 2W 21:25

== ENCOUNTER 2019-07-18 14:05 | Inpatient (IN) ==
--- NOTE | 2019-07-18 14:54 | Emergency Department Note ---
ED Visit Note I assisted Dr. Carroll in the care of this patient. Please see attending attestation. William Johnston DO Resident, Family & Community Medicine, [facility] . Resident Activity Tracking Resident Involvement: Resident Care Provided Care Provided: Adult ED
--- NOTE | 2019-07-18 15:15 | Emergency Department Note ---
Impression & Plan Pleuritic chest pain, Intra-abdominal free air of unknown etiology, SOB (shortness of breath) ED Provider Note NAME: HECTOR MILIAN AGE: 84 SEX: F : 1935 ARRIVES VIA: Walk-In INFORMANT: [Patient][nurses] ED PROVIDER(S): [Remigio Carroll MD] CHIEF COMPLAINT: Right chest pain HISTORY OF PRESENT ILLNESS: Patient is an 84-year-old female who was in the hospital recently for C. difficile and CHF. She is now off her vancomycin. Patient states that for the last 24 hours she has had some right-sided chest pain. The pain is a 5 or maybe a 6 on a scale of 1-10 at its worst. It is sharp in nature. It is worse to lie flat and to take a breath. It does make her feel somewhat short of breath. When she is sitting up, the pain is almost gone. There has been no increased cough. She has not had any documented fever, highest temperature was about 99 F this morning. Patient has not had chills. No urinary complaints. No diarrhea, no vomiting. She has not suffered trauma. The patient did have a chest x-ray done yesterday for this complaint, it was re ad as negative. She was sent today for further work-up. There were concerns for PE. REVIEW OF SYSTEMS: See HPI for pertinent positives and negatives. A total of ten systems were reviewed and were otherwise negative. PMHx/PSHx: See Below SOCIAL HISTORY: See Below. PHYSICAL EXAM: GENERAL: Patient is in no acute distress. HEENT: No acute trauma, normocephalic atraumatic, mucous membranes moist, no nasal congestion, no scleral icterus. NECK: No stridor, no adenopathy, no meningismus, trachea is midline. LUNGS: Clear to auscultation bilaterally, no wheeze, no rhonchi, breath sounds equal. HEART: Without murmurs gallops or rubs, regular rate and rhythm. Chest: There is no rash, no tenderness to palpate over the right thoracic back/chest. No pain to palpate the anterior right chest wall. Pain worsens with deep breathing, pain does not change with any movement. ABDOMEN: Soft, nontender, bowel sounds positive, no hernias, no peritonitis. EXTREMITIES: No cyanosis or edema, full range of motion of all the joints without pain or difficulty, no signs for acute trauma. NEUROLOGIC: Oriented x 3, no acute motor or sensory deficits, no focal weakness. SKIN: No rash, no jaundice, no diaphoresis. DIFFERENTIAL DIAGNOSIS: Cardiac ischemia, aortic dissection, pulmonary embolism, pneumothorax, pneumonia, diverticulitis, pericarditis, myocarditis, esophageal rupture, GERD, cholecystitis, pancreatitis, musculoskeletal, as well as other pathologies. EMERGENCY DEPARTMENT COURSE/PROCEDURES: ECG: Indication was chest pain. There is a normal sinus rhythm with a right bundle branch block. The rate is 73. The QTc is 440. There is no ST elevation, no PVCs. Continuous Cardiac Monitoring: An order was placed for continuous cardiac monitoring. The monitor shows a rate of 74 with normal sinus rhythm. MEDICAL DECISION MAKING: There is no leukocytosis or concerning anemia. No significant electrolyte abnormality or kidney failure. Alk phos was slightly elevated, the bilirubin was normal. Lipase was normal. Urinalysis did not show hematuria, some white cells and bacteria were seen, urine culture is pending. Chest film did not show free air or pneumonia, there was no mediastinal widening. Chest CT did not show PE or pneumonia, some free intra-abdominal air was seen. Abdominal and pelvis CT showed free air and diverticuli, no diverticulitis. No source for the perforation was found by CT imaging. The patient received IV Zosyn as empiric antibiotic coverage. She is currently resting comfortably. General surgery was consulted. They suggested a medicine admission. The patient has free abdominal air, the cause is unclear. She is not toxic, she does not have peritonitis in fact, on exam, she does not really have any abdominal pain. Hospitalization is clearly warranted for this finding. I do think the CT findings explain the right-sided chest pain, I suspect she has diaphoretic irritation causing her chest discomfort. The patient is aware of her findings, case management has been involved. The on-call hospitalist has been consulted. Past Med/Surg History Medical History Colostomy present Diverticulitis of colon with perforation Diverticulosis GERD (gastroesophageal reflux disease) Hiatal hernia HTN (hypertension) (Chronic) Hypothyroidism Surgical History History of cataract surgery History of colostomy Hx of cholecystectomy Family History Sister Breast cancer Coronary heart disease Brother Coronary heart disease Other Hypertension Social History Preferred Language: Pakistani Communication Ability: Effective Popped Corn Oven Attendant Required: No Beliefs That Will Affect Care: None marital status: / Current Living Situation: Alone Feels Safe at Home: Yes Smoking Status: Never smoker Hx Alcohol Use: No Hx Substance Use: No Allergies Allergies Allergy/AdvReac Type Severity Reaction Status Date / Time codeine AdvReac Intermediate NAUSEA, Verified 07/18/19 17:53 VOMITING colchicine AdvReac Intermediate GI side Verified 07/18/19 17:53 effects fentanyl AdvReac Intermediate vomiting Verified 07/18/19 17:53 Home Meds Home Medications Medication Instructions Recorded Confirmed amlodipine [Norvasc] 5 mg PO QAM 05/26/19 07/18/19 famotidine [Pepcid] 40 mg PO BID 05/26/19 07/18/19 levothyroxine 100 mcg PO QAM 05/26/19 07/18/19 metoprolol tartrate [Lopressor] 100 mg PO QAM 05/26/19 07/18/19 acetaminophen [Tylenol] 325 mg PO QID PRN 06/08/19 07/18/19 hydrochlorothiazide 25 mg PO DAILY 07/18/19 07/18/19 lactobacillus combination no.4 0 mmu cells PO DAILY 07/18/19 07/18/19 [Probiotic] multivitamin 1 tab PO DAILY 07/18/19 07/18/19 nystatin [Nystop] 1 applic TOPICAL TID 07/18/19 07/18/19 Previous Rx's Medication Instructions Recorded ondansetron HCl [Zofran] 4 mg PO Q12H PRN #30 tab 06/21/19 Results & Data (ED) Vital Signs Vital Signs - 24 hr 07/18/19 14:19 07/18/19 15:52 07/18/19 17:10 Temperature 37.2 C Temperature Source Oral Pulse Rate 91 H 74 88 Pulse Rate [Apical] 80 Pulse Rate from SpO2 Sensor 89 Respiratory Rate 20 20 20 Respiratory Effort / Characteristics Non-Labored Spontaneous Non-Labored Spontaneous Respiratory Depth Normal Normal Respiratory Pattern Regular Blood Pressure 163/104 H Blood Pressure [Right Arm] 126/73 Blood Pressure Mean 123 Blood Pressure Mean [Right Arm] 90 Pulse Oximetry 93 93 95 Oxygen Delivery Method Room Air Room Air Sepsis Recent Fever Within 48 Hours No Sepsis Action Taken by Nursing No Action Required 07/18/19 17:30 07/18/19 17:31 Temperature Temperature Source Pulse Rate 80 77 Pulse Rate [Apical] Pulse Rate from SpO2 Sensor 79 77 Respiratory Rate 18 17 Respiratory Effort / Characteristics Respiratory Depth Respiratory Pattern Blood Pressure 144/66 H Blood Pressure [Right Arm] Blood Pressure Mean 107 Blood Pressure Mean [Right Arm] Pulse Oximetry 95 95 Oxygen Delivery Method Sepsis Recent Fever Within 48 Hours Sepsis Action Taken by Long Term Medications Current Medication List: was personally reviewed by me Laboratory Data Attestation: I reviewed the patient's lab results. Result diagrams: 07/18/19 15:20 07/18/19 15:20 Lab Results 07/18/19 07/18/19 07/18/19 Range/Units 15:20 15:20 15:22 WBC 9.18 (4.8-10.8) K/uL RBC 4.22 (4.2-5.4) M/uL Hgb 12.2 (12.0-16.0) g/dL Hct 37.5 (37-47) % MCV 88.9 (80-100) fL MCH 28.9 (25-34) pg MCHC 32.5 (32-36) g/dL RDW Std Deviation 51.1 H (36.4-46.3) fL RDW Coeff of [place] 15.7 H (11.5-14.5) % Plt Count 323 (130-400) K/uL MPV 10.1 (7.4-10.4) fL Immature Gran % (Auto) 0.3 % Neut % (Auto) 73.0 % Lymph % (Auto) 17.4 % Boundary % (Auto) 6.9 % Eos % (Auto) 2.1 % Baso % (Auto) 0.3 % Immature Gran # (Auto) 0.03 H (0.00-0.02) K/uL Neut # (Auto) 6.70 H (1.4-6.5) K/uL Lymph # (Auto) 1.60 (1.2-3.4) K/uL Boundary # (Auto) 0.63 H (0.11-0.59) K/uL Eos # (Auto) 0.19 (0-0.5) K/uL Baso # (Auto) 0.03 (0-0.2) K/uL Sodium 139 (136-145) mmol/L Potassium 4.0 (3.5-5.1) mmol/L Chloride 105 (98-107) mmol/L Carbon Dioxide 28 (21-32) mmol/L Anion Gap 6.0 (3-11) BUN 14 (7-18) mg/dl Creatinine 0.79 (0.6-1.2) mg/dl Est Cr Clr Drug Dosing 48.4 ml/min Est GFR ( Amer) 80.2 Est GFR (Non-Af Amer) 69.2 BUN/Creatinine Ratio 18.2 (10-20) Glucose 93 (70-99) mg/dl Calcium 8.1 L (8.5-10.1) mg/dl Magnesium 1.9 (1.8-2.4) mg/dl Total Bilirubin 0.5 (0.2-1) mg/dl AST 17 (15-37) U/L ALT 28 (12-78) U/L Alkaline Phosphatase 122 H (45-117) U/L Troponin I < 0.015 (0-0.045) ng/ml Total Protein 6.6 (6.4-8.2) gm/dl Albumin 2.5 L (3.4-5.0) gm/dl Globulin 4.1 H (2.5-4.0) gm/dl Albumin/Globulin Ratio 0.6 L (0.9-2) Lipase 116 (73-393) U/L Urine Color Yellow Urine Appearance Clear (Clear) Urine pH 6.0 (4.5-7.5) Ur Specific [place] 1.008 (1.000-1.030) Urine Protein Negative (Negative) Urine Glucose (UA) Negative (Negative) Urine Ketones Negative (Negative) Urine Blood Negative (Negative) Urine Nitrite Negative (Negative) Urine Bilirubin Negative (Negative) Urine Urobilinogen Negative (Negative) Ur Leukocyte Esterase 2+ H (Negative) Urine WBC (Auto) >30 H (0-5) /hpf Urine RBC (Auto) 0-4 (0-4) /hpf U Hyaline Cast (Auto) 1-5 (0-5) /lpf U Epithel Cells (Auto) 0-5 (0-5) /lpf Urine Bacteria (Auto) 4+ H (Negative) Administered Medications Ioversol (Optiray 320 125ml) 119 ml IV ONCE PRN PRN Reason: Interaction Checking Stop: 07/22/19 16:02 Last Admin: 07/18/19 16:03 Dose: 119 ml Documented by: [id number] Discontinued Medications Piperacillin Sod/Tazobactam Sod (Zosyn) 4.5 gm in 120 mls @ 240 mls/hr IV NOW ONE Stop: 07/18/19 17:05 Last Infusion: 07/18/19 17:50 Dose: 0 mls/hr Documented by: [id number] Admin: 07/18/19 16:40 Dose: 240 mls/hr Documented by: [id number] Imaging Data Radiologist's Impression: XR chest 1V portable CLINICAL HISTORY: Shortness of breath. COMPARISON STUDY: Chest CT May 26, 2019. Chest radiograph June 17, 2019. FINDINGS: Lung volumes are normal. Linear left basilar opacity suggests atelectasis. There is no pneumothorax or pleural effusion. Cardiac size is normal. Mediastinal contours are normal. There is no evidence for pulmonary edema. Mild elevation of the right hemidiaphragm is unchanged. IMPRESSION: No acute cardiopulmonary findings. CT angio chest PE protocol CT DOSE: 291.48 mGy.cm HISTORY: 84 years-old Female with PE. Acute atypical chest pain TECHNIQUE: Multiple CTA images of the chest were obtained after the intravenous administration of 119 ml Optiray 320. Coronal and sagittal MIPS were obtained from the axial data set and were submitted for review. All measurements were obtained according to NASCET criteria. A dose lowering technique was utilized adhering to the principles of ALARA. COMPARISON: Chest radiograph of same day, CTA chest 05/26/2019 FINDINGS: CTA: Heart is upper limits of normal in size. Trace pericardial effusion. Minimal coronary artery calcifications. No thoracic aortic aneurysm or dissection. Paten cy of the imaged great vessels. Pulmonary arterial tree is opacified to level of the proximal subsegmental branches and demonstrates no filling defects to suggest pulmonary thromboembolic disease. CT CHEST: Indeterminate prominent lymph node posterior lateral to the right scapula measures 1.3 x 0.8 cm. No pathologically enlarged lymph nodes are identified. No thyroid nodule. No pneumothorax, pleural effusion, overt pulmonary edema or airspace consolidation typical for pneumonia. Mild subpleural reticulation of the lung bases suggests mild fibrosis with atelectasis. There are no suspicious pulmonary nodules or masses identified. The central airways appear patent. Moderate amount of partially imaged upper abdominal pneumoperitoneum. Tiny hiatal hernia. 1.5 cm hypodense focus of the hepatic dome is unchanged. Soft tissues are unremarkable. Degenerative changes of the shoulders and spine. IMPRESSION: 1. No acute intrathoracic abnormality, specifically there is no evidence of pulmonary thromboembolic disease. 2. Moderate upper abdominal pneumoperitoneum. In the absence of recent abdominal surgery, these findings are suggestive of perforated hollow viscus. Surgical consultation with CT abdomen and pelvis is recommended to further evaluate. CT SCAN OF THE ABDOMEN AND PELVIS WITHOUT IV CONTRAST CLINICAL HISTORY: Free air seen by chest CT. COMPARISON STUDY: Abdominal CT dated 06/16/2019. Chest CT dated 07/18/2019. TECHNIQUE: CT scan of the abdomen and pelvis is performed from the lung bases to the proximal femora. Images are reviewed in the axial, sagittal, and coronal planes. IV contrast was not administered for this examination. A dose lowering technique was utilized adhering to the principles of ALARA. CT DOSE: 438.29 mGy.cm FINDINGS: Lung bases: The heart is normal in size noting a small pericardial effusion. There are coronary artery calcifications. The lung bases are clear noting bibasilar scarring/atelectasis. There is a small hiatal hernia. Liver: The unenhanced liver is enlarged, measuring 19.2 cm in length. The liver demonstrates diffusely diminished attenuation consistent with hepatic steatosis. There is minimal central intrahepatic biliary ductal dilatation. 1.5 cm cyst is noted in the right lobe. Gallbladder: Surgically absent. Spleen: Normal in size and attenuation. Pancreas: Unremarkable. Adrenal glands: Unremarkable. Kidneys: The unenhanced kidneys demonstrate cortical atrophy and are without hydronephrosis. The presence of renal calculi is not well evaluated due to the presence of excreted contrast within the kidneys and ureters. There is no evidence of urothelial lesion within the renal pelvis bilaterally or along the course of ureters. There is no evidence of contour deforming renal mass lesion. Abdominal vasculature: The abdominal aorta is normal in course and caliber noting moderate to advanced atherosclerotic calcification. Bowel: There is postoperative change from sigmoid colon resection with left lower quadrant colostomy and Contreras pouch formation. No bowel obstruction is seen. There is mild diverticulosis of the remaining colon without CT evidence of acute diverticulitis. There are small duodenal diverticula. There is also extensive diverticulosis of the small bowel. There are fluid-filled loops of small bowel. No bowel wall thickening or pneumatosis intestinalis is identified. The appendix is well-visualized and normal. Peritoneum: There are numerous small foci of intraperitoneal scattered throughout the abdomen, greatest below the diaphragm. No abdominal ascites is seen. Midline surgical scar is noted. Lymphadenopathy: None. Pelvic viscera: The bladder is filled with excreted IV contrast but otherwise normal in appearance. The uterus and adnexa are normal as visualized. Skeletal structures: The skeletal structures are osteopenic. Moderate lumbosacral spondylosis is observed. No lytic or blastic lesions are seen. IMPRESSION: 1. There are numerous small foci of intraperitoneal free air, which is highly concerning for visceral perforation. The site of perforation is not delineated. Surgical consultation is advised. 2. There is postoperative change from sigmoid colon resection with left lower quadrant colostomy. No bowel obstruction is identified. 3. There is mild diverticulosis of the remaining colon as well as extensive diverticulosis of the small bowel. There is no clear CT evidence of acute diverticulitis at the time of examination. 4. Hepatomegaly and hepatic steatosis. 5. Small pericardial effusion. 6. Additional findings as above. Blood Pressure Blood Pressure Findings: Elevated blood pressure Blood Pressure Disposition: further management by hospitalist Discharge Plan Visit Data Chief Complaint: Abdominal Pain Stated Complaint: FEVER, RT SIDE ABDOMINAL PAIN ED Provider: Remigio Carroll ED Midlevel Provider: William Johnston Discharge Problem: Pleuritic chest pain, Intra-abdominal free air of unknown etiology, SOB (shortness of breath) Patient Disposition: Being Evaluated by Hospitalist Condition: Fair Forms Stand Alone Forms: My [employer] Prescriptions Prescriptions: No Action Probiotic 3 billion cell Capsule 0 mmu cells PO DAILY RF: 0 hydrochlorothiazide 25 mg tablet 25 mg PO DAILY RF: 0 nystatin [Nystop] 100,000 unit/gram powder 1 applic TOPICAL TID RF: 0 multivitamin Tablet,Chewable 1 tab PO DAILY RF: 0 metoprolol tartrate [Lopressor] 100 mg tablet 100 mg PO QAM RF: 0 famotidine [Pepcid] 40 mg tablet 40 mg PO BID RF: 0 amlodipine [Norvasc] 5 mg tablet 5 mg PO QAM RF: 0 levothyroxine 100 mcg tablet 100 mcg PO QAM RF: 0 acetaminophen [Tylenol] 325 mg Tablet 325 mg PO QID PRN (Reason: Pain) RF: 0 ondansetron HCl [Zofran] 4 mg tablet 4 mg PO Q12H PRN (Reason: nausea and vomiting) Qty: 30 RF: 0 Referrals Referrals: Nahid Nicholas [Primary Care Provider] -
--- NOTE | 2019-07-18 15:21 | XRay Report ---
XR chest 1V portable CLINICAL HISTORY: Shortness of breath. COMPARISON STUDY: Chest CT May 26, 2019. Chest radiograph June 17, 2019. FINDINGS: Lung volumes are normal. Linear left basilar opacity suggests atelectasis. There is no pneu mothorax or pleural effusion. Cardiac size is normal. Mediastinal contours are normal. There is no ev idence for pulmonary edema. Mild elevation of the right hemidiaphragm is unchanged. IMPRESSION: No acute cardiopulmonary findings. ACT 112: Negative or not required by law. Electronically signed by: Alan Bravo M.D. 07/18/2019 3:20 PM
[2019-07-18 15:31] LABS: Basophils # (auto) 0.03 K/uL (0-0.2); Basophils % (auto) 0.3 %; Eosinophils # (auto) 0.19 K/uL (0-0.5); Eosinophils % (auto) 2.1 %; Hematocrit (blood only) 37.5 % (37-47); Hemoglobin 12.2 g/dL (12.0-16.0); Immature Granulocytes # (auto) 0.03 K/uL (0.00-0.02); Immature Granulocytes % (auto) 0.3 %; Lymphocytes % (auto) 17.4 %; Mean Corpuscular Hemoglobin 28.9 pg (25-34); Mean Corpuscular Hgb Conc 32.5 g/dL (32-36); Mean Corpuscular Volume 88.9 fL (80-100); Mean Platelet Volume 10.1 fL (7.4-10.4); Monocytes # (auto) 0.63 K/uL (0.11-0.59); Monocytes % (auto) 6.9 %; Platelet Count 323 K/uL (130-400); RDW Coefficient of Variation 15.7 % (11.5-14.5); RDW Standard Deviation 51.1 fL (36.4-46.3); Red Blood Count 4.22 M/uL (4.2-5.4); White Blood Count 9.18 K/uL (4.8-10.8)
[2019-07-18 15:47] LABS: Appearance Urine Clear (Clear); Bacteria Urine Automated 4+ (Negative); Bilirubin Urine Negative (Negative); Blood Urine Negative (Negative); Color Urine Yellow; Epithelial Cell Urine Auto 0-5 /lpf (0-5); Glucose Urine UA Negative (Negative); Ketones Urine Negative (Negative); Leukocyte Esterase Urine 2+ (Negative); Nitrite Urine Negative (Negative); Protein Urine Negative (Negative); RBC Urine Automated 0-4 /hpf (0-4); Specific Gravity Urine 1.008 (1.000-1.030); Urobilinogen Urine Negative (Negative); WBC Urine Automated >30 /hpf (0-5)
[2019-07-18 15:48] LABS: Alanine Aminotransferase 28 U/L (12-78); Albumin Level 2.5 gm/dl (3.4-5.0); Aspartate Aminotransferase 17 U/L (15-37); BUN Creatinine Ratio 18.2 (10-20); Blood Urea Nitrogen 14 mg/dl (7-18); Calcium 8.1 mg/dl (8.5-10.1); Carbon Dioxide 28 mmol/L (21-32); Chloride 105 mmol/L (98-107); Creatinine Clr Calc Pharmacy 48.4 ml/min; Est GFR (African American) 80.2; Est GFR (Non-African American) 69.2; Glucose 93 mg/dl (70-99); Lipase 116 U/L (73-393); Magnesium 1.9 mg/dl (1.8-2.4); Sodium 139 mmol/L (136-145)
[2019-07-18 15:53] LABS: Albumin Globulin Ratio 0.6 (0.9-2); Alkaline Phosphatase 122 U/L (45-117); Bilirubin,Total 0.5 mg/dl (0.2-1); Globulin 4.1 gm/dl (2.5-4.0); Total Protein 6.6 gm/dl (6.4-8.2); Troponin I < 0.015 ng/ml (0-0.045)
[2019-07-18] MEDS ORDERED: OPTIRAY 320 125ml IV PRN (16:03)
--- NOTE | 2019-07-18 16:20 | CT Scan Report ---
CT angio chest PE protocol CT DOSE: 291.48 mGy.cm HISTORY: 84 years-old Female with PE. Acute atypical chest pain TECHNIQUE: Multiple CTA images of the chest were obtained after the intravenous administration of 119 ml Optiray 320. Coronal and sagittal MIPS were obtained from the axial data set and were submitted for review. All measurements were obtained according to NASCET criteria. A dose lowering technique w as utilized adhering to the principles of ALARA. COMPARISON: Chest radiograph of same day, CTA chest 05/26/2019 FINDINGS: CTA: Heart is upper limits of normal in size. Trace pericardial effusion. Minimal coronary artery calcific ations. No thoracic aortic aneurysm or dissection. Patency of the imaged great vessels. Pulmonary art erial tree is opacified to level of the proximal subsegmental branches and demonstrates no filling de fects to suggest pulmonary thromboembolic disease. CT CHEST: Indeterminate prominent lymph node posterior lateral to the right scapula measures 1.3 x 0.8 cm. No p athologically enlarged lymph nodes are identified. No thyroid nodule. No pneumothorax, pleural effusi on, overt pulmonary edema or airspace consolidation typical for pneumonia. Mild subpleural reticulati on of the lung bases suggests mild fibrosis with atelectasis. There are no suspicious pulmonary nodul es or masses identified. The central airways appear patent. Moderate amount of partially imaged upper abdominal pneumoperitoneum. Tiny hiatal hernia. 1.5 cm hypo dense focus of the hepatic dome is unchanged. Soft tissues are unremarkable. Degenerative changes of the shoulders and spine. IMPRESSION: 1. No acute intrathoracic abnormality, specifically there is no evidence of pulmonary thromboembolic disease. 2. Moderate upper abdominal pneumoperitoneum. In the absence of recent abdominal surgery, these findi ngs are suggestive of perforated hollow viscus. Surgical consultation with CT abdomen and pelvis is r ecommended to further evaluate. ACT 112: Negative or not required by law. The above report was generated using voice recognition software. It may contain grammatical, syntax o r spelling errors. Electronically signed by: Dima Lama M.D. 07/18/2019 4:18 PM
--- NOTE | 2019-07-18 16:24 | Electrocardiogram Report ---
Test Reason : Blood Pressure : / mmHG Vent. Rate : 073 BPM Atrial Rate : 073 BPM P-R Int : 202 ms QRS Dur : 128 ms QT Int : 400 ms P-R-T Axes : 043 -03 002 degrees QTc Int : 440 ms Normal sinus rhythm Right bundle branch block Abnormal ECG When compared with ECG of 17-JUN-2019 14:34, No significant change was found Confirmed by Cristian Apodaca ([id number]) on 07/18/2019 4:23:46 PM Referred By: REFERRED SELF Confirmed By:Hawk Apodaca
[2019-07-18] MEDS ORDERED: PIPERACILL/TAZOBAC CONSULT ACTIVE PRN ×2 (16:36→21:24)
[2019-07-18] MEDS ORDERED: PIPERACILLIN/TAZOBACTAM 4.5 GM/120 ML BAG IV ONE (16:36)
--- NOTE | 2019-07-18 17:21 | CT Scan Report ---
CT SCAN OF THE ABDOMEN AND PELVIS WITHOUT IV CONTRAST CLINICAL HISTORY: Free air seen by chest CT. COMPARISON STUDY: Abdominal CT dated 06/16/2019. Chest CT dated 07/18/2019. TECHNIQUE: CT scan of the abdomen and pelvis is performed from the lung bases to the proximal femora. Images are reviewed in the axial, sagittal, and coronal planes. IV contrast was not administered for this examination. A dose lowering technique was utilized adhering to the principles of ALARA. CT DOSE: 438.29 mGy.cm FINDINGS: Lung bases: The heart is normal in size noting a small pericardial effusion. There are coronary arter y calcifications. The lung bases are clear noting bibasilar scarring/atelectasis. There is a small hi atal hernia. Liver: The unenhanced liver is enlarged, measuring 19.2 cm in length. The liver demonstrates diffusel y diminished attenuation consistent with hepatic steatosis. There is minimal central intrahepatic citlali iary ductal dilatation. 1.5 cm cyst is noted in the right lobe. Gallbladder: Surgically absent. Spleen: Normal in size and attenuation. Pancreas: Unremarkable. Adrenal glands: Unremarkable. Kidneys: The unenhanced kidneys demonstrate cortical atrophy and are without hydronephrosis. The pres ence of renal calculi is not well evaluated due to the presence of excreted contrast within the kidne ys and ureters. There is no evidence of urothelial lesion within the renal pelvis bilaterally or isis g the course of ureters. There is no evidence of contour deforming renal mass lesion. Abdominal vasculature: The abdominal aorta is normal in course and caliber noting moderate to advance d atherosclerotic calcification. Bowel: There is postoperative change from sigmoid colon resection with left lower quadrant colostomy and Contreras pouch formation. No bowel obstruction is seen. There is mild diverticulosis of the remain ing colon without CT evidence of acute diverticulitis. There are small duodenal diverticula. There is also extensive diverticulosis of the small bowel. There are fluid-filled loops of small bowel. No lamonte wel wall thickening or pneumatosis intestinalis is identified. The appendix is well-visualized and n ormal. Peritoneum: There are numerous small foci of intraperitoneal scattered throughout the abdomen, greate st below the diaphragm. No abdominal ascites is seen. Midline surgical scar is noted. Lymphadenopathy: None. Pelvic viscera: The bladder is filled with excreted IV contrast but otherwise normal in appearance. T he uterus and adnexa are normal as visualized. Skeletal structures: The skeletal structures are osteopenic. Moderate lumbosacral spondylosis is obse rved. No lytic or blastic lesions are seen. IMPRESSION: 1. There are numerous small foci of intraperitoneal free air, which is highly concerning for visceral perforation. The site of perforation is not delineated. Surgical consultation is advised. 2. There is postoperative change from sigmoid colon resection with left lower quadrant colostomy. No bowel obstruction is identified. 3. There is mild diverticulosis of the remaining colon as well as extensive diverticulosis of the sma ll bowel. There is no clear CT evidence of acute diverticulitis at the time of examination. 4. Hepatomegaly and hepatic steatosis. 5. Small pericardial effusion. 6. Additional findings as above. ACT 112: Negative or not required by law. Electronically signed by: Remigio Lux M.D. 07/18/2019 5:20 PM
--- NOTE | 2019-07-18 17:38 | Surgery Consultation ---
Date of Consultation July 18, 2019 Assessment & Plan (1) Intra-abdominal free air of unknown etiology: Exam is benign. White count normal. No inflammatory findings on CT to suggest an area of perforation, suspect small bowel divertic given presentation Hospitalist is admitting, would keep npo for tonight and keep on IV abx, Zosyn given in ED Dr. Gant will be following. History of Present Illness History of Present Illness 84 y/o female recent C. diff and 1 yr s/p Amira's with right chest pain and right shoulder pain that began last night. This morning she had a low grade temp and her home health nurse referred her to the ED. She finished vanco, is submitting stool samples this week. Her pain is improved now. She had normal breakfast. Has colostomy output today, maybe a little more yellow. No other fe vers or chills. She wants to eat dinner. She was told at time of colostomy she had small and large bowel diverticuli "all over." Allergies Allergy/AdvReac Type Severity Reaction Status Date / Time codeine AdvReac Intermediate NAUSEA, Verified 07/18/19 17:53 VOMITING colchicine AdvReac Intermediate GI side Verified 07/18/19 17:53 effects fentanyl AdvReac Intermediate vomiting Verified 07/18/19 17:53 Home Medications Home Medications Medication Instructions Recorded Confirmed Type amlodipine [Norvasc] 5 mg PO QAM 05/26/19 07/18/19 History famotidine [Pepcid] 40 mg PO BID 05/26/19 07/18/19 History levothyroxine 100 mcg PO QAM 05/26/19 07/18/19 History metoprolol tartrate [Lopressor] 100 mg PO QAM 05/26/19 07/18/19 History acetaminophen [Tylenol] 325 mg PO QID PRN 06/08/19 07/18/19 History ondansetron HCl [Zofran] 4 mg PO Q12H PRN #30 tab 06/21/19 07/18/19 Rx lactobacillus combination no.4 0 mmu cells PO DAILY 07/18/19 07/18/19 History [Probiotic] multivitamin 1 tab PO DAILY 07/18/19 07/18/19 History nystatin [Nystop] 1 applic TOPICAL TID 07/18/19 07/18/19 History Patient History Medical History Colostomy present Diverticulitis of colon with perforation Diverticulosis GERD (gastroesophageal reflux disease) Hiatal hernia HTN (hypertension) (Chronic) Hypothyroidism Surgical History History of cataract surgery History of colostomy Hx of cholecystectomy Family History Sister Breast cancer Coronary heart disease Brother Coronary heart disease Other Hypertension Social History Preferred Language: Latvian Communication Ability: Effective Milk Deliverer Required: No Beliefs That Will Affect Care: None marital status: / Current Living Situation: Alone Feels Safe at Home: Yes Smoking Status: Never smoker Hx Alcohol Use: No Hx Substance Use: No Review of Systems Constitutional: + fever; no chills, no sweats, no malaise and no anorexia Gastrointestinal: no abdominal pain, no nausea and no vomiting Physical Exam Constitutional: WD/WN, vitals as above Respiratory: normal respiratory effort Cardiovascular: Rate/Rhythm: regular rate Gastrointestinal (Abdomen): Inspection/Auscultation: abdomen not distended Percussion/Palpation: abdomen soft; abdomen nontender stoma normal appearing, yellowish output Results & Data Vital Signs (Past 12 Hours) Vital Signs Temp Pulse Pulse Resp BP BP Pulse Ox 07/18/19 17:10 88 20 95 07/18/19 15:52 74 80 20 126/73 93 07/18/19 14:19 37.2 C 91 H 20 163/104 H 93 PG Care Time/CCT Total # of Minutes Spent Total Time Spent with Patient: Total time spent is greater than 50% in coordination of care (as documented) at patient's floor/unit and/or counseling patient: Coding Level of Care Code 39313 Initial Inpt Care Lvl 1 Diagnoses Intra-abdominal free air of unknown etiology K66.8
--- NOTE | 2019-07-18 19:15 | History & Physical Report ---
Date of Service July 18, 2019 Assessment & Plan (1) Pneumoperitoneum of unknown etiology: Abdominal Pneumoperitoneum: 83 year old female with history of Diverticulosis, Perforated Colon s/p Sigmoid Resection, Colostomy placement 2019, GERD, Hiatal Hernia, presenting right sided chest pain CTA chest showed no PE CT abd/pelvis showed numerous small foci of intraperitoneal free air, which is highly concerning for visceral perforation. Troponin on admission negative Received IV Zosyn in the ER Surgery consulted recommended conservative management for now Keep NPO for now Continue IV abx with Zosyn Continue antiemetic with Zosyn Continue Monitor closely Abnormal UA UA positive for Leukocytes and bacteria urine cx sent in ER Continue IV Zosyn for now History of diastolic CHF Patient's recent echo on 06/16/2019, normal ejection fraction/grade 1 diastolic dysfunction/HFpEF Will monitor closely for volume overload Stable Hx C-Diff Recently completed course of PO Vanco Stable Hx Pericarditis Found to have pericardial effusion Echo on 06/08 revealed EF 65 to 70%, grade 1 diastolic dysfunction, pericardial effusion Symptoms felt likely secondary to acute pericarditis was treated with colchicine that was discontinued secondary to JAVIER and pancreatitis Stable HYPERTENSION Continue Metoprolol, Amlodipine Continue monitor BP HYPOTHYROIDISM Will change Levothyroxine to IV DVT prophylaxis in light of possible surgical procedure CODE STATUS Full code as per patient History of Present Illness Chief Complaint: Right sided chest pain Primary Care Provider: Nahid Nicholas 84 year old female with history of Diverticulosis, Perforated Colon s/p Sigmoid Resection, Colostomy placement 2019, GERD, Hiatal Hernia, pericarditis presented to the ER with right sided chest pain. Pt recently discharged on 06/17 for pancreatitis and C-diff. She said that she completed the course of PO Vanco. she said that for the last 24 hours she has had right-sided chest pain. She described the pain as sharp in nature, grade 6-7 out 10 and worsening when she is lying down and take deep breath. She said that she does have mild SOB because she unable to take deep breath. She said that the pain improved when sitting. Pt said that she felt bloating and low appetite about few days ago. Denies any fever, chills, dizziness, cough and abdominal pain. Denies any recent contact with anyone positive for covid-[address] chest was done in the ER to r/o PE showed no evidence of pulmonary thromboembolic disease, but moderate upper abdominal pneumoperitoneum. Allergies Allergy/AdvReac Type Severity Reaction Status Date / Time codeine AdvReac Intermediate NAUSEA, Verified 07/18/19 17:53 VOMITING colchicine AdvReac Intermediate GI side Verified 07/18/19 17:53 effects fentanyl AdvReac Intermediate vomiting Verified 07/18/19 17:53 Home Medications Home Medications Medication Instructions Recorded Confirmed Type amlodipine [Norvasc] 5 mg PO QAM 05/26/19 07/18/19 History famotidine [Pepcid] 40 mg PO BID 05/26/19 07/18/19 History levothyroxine 100 mcg PO QAM 05/26/19 07/18/19 History metoprolol tartrate [Lopressor] 100 mg PO QAM 05/26/19 07/18/19 History acetaminophen [Tylenol] 325 mg PO QID PRN 06/08/19 07/18/19 History ondansetron HCl [Zofran] 4 mg PO Q12H PRN #30 tab 06/21/19 07/18/19 Rx lactobacillus combination no.4 0 mmu cells PO DAILY 07/18/19 07/18/19 History [Probiotic] multivitamin 1 tab PO DAILY 07/18/19 07/18/19 History nystatin [Nystop] 1 applic TOPICAL TID 07/18/19 07/18/19 History Past Med/Surg History Medical History Colostomy present Diverticulitis of colon with perforation Diverticulosis GERD (gastroesophageal reflux disease) Hiatal hernia HTN (hypertension) (Chronic) Hypothyroidism Surgical History History of cataract surgery History of colostomy Hx of cholecystectomy Family History Sister Breast cancer Coronary heart disease Brother Coronary heart disease Other Hypertension Social History Preferred Language: [place] Communication Ability: Effective Network Consultant Required: No Beliefs That Will Affect Care: None marital status: / Current Living Situation: Alone Feels Safe at Home: Yes Smoking Status: Never smoker Hx Alcohol Use: No Hx Substance Use: No Review of Systems Review of Systems: All systems reviewed & are unremarkable except as noted in HPI & below Physical Exam Physical Exam: General- No acute distress Head- atraumatic Eyes- PERRL, EOMI, ENT- oropharynx clear Neck- supple, no JVD Lungs- clear to auscultation Heart- regular rhythm; no murmur Abdomen- normal bowel sounds, nontender, +colostomy bag in LLQ Extremities- no calf tenderness Neuro- alert, oriented x 3; PERRL, EOMI; no facial palsy; no dysarthria Skin- warm & dry Results & Data Results & Data ([facility]) Vital Signs (Past 12 Hours) Vital Signs Temp Pulse Pulse Resp BP BP Pulse Ox 07/18/19 17:31 77 17 144/66 H 95 07/18/19 17:30 80 18 95 07/18/19 17:10 88 20 95 07/18/19 15:52 74 80 20 126/73 93 07/18/19 14:19 37.2 C 91 H 20 163/104 H 93 Diagnostic Findings XR chest 1V portable CLINICAL HISTORY: Shortness of breath. COMPARISON STUDY: Chest CT May 26, 2019. Chest radiograph June 17, 2019. FINDINGS: Lung volumes are normal. Linear left basilar opacity suggests atelectasis. There is no pneumothorax or pleural effusion. Cardiac size is normal. Mediastinal contours are normal. There is no evidence for pulmonary nona ma. Mild elevation of the right hemidiaphragm is unchanged. IMPRESSION: No acute cardiopulmonary findings. ACT 112: Negative or not required by law. Electronically signed by: Alan Bravo M.D. 07/18/2019 3:20 PM Dictated: 07/18/19 1519 Transcribed: 07/18/[address] angio chest PE protocol CT DOSE: 291.48 mGy.cm HISTORY: 84 years-old Female with PE. Acute atypical chest pain TECHNIQUE: Multiple CTA images of the chest were obtained after the intravenous administration of 119 ml Optiray 320. Coronal and sagittal MIPS were obtained from the axial data set and were submitted for review. All measurements were obtained according to NASCET criteria. A dose lowering technique was utilized adhering to the principles of ALARA. COMPARISON: Chest radiograph of same day, CTA chest 05/26/2019 FINDINGS: CTA: Heart is upper limits of normal in size. Trace pericardial effusion. Minimal coronary artery calcifications. No thoracic aortic aneurysm or dissection. Patency of the imaged great vessels. Pulmonary arterial tree is opacified to level of the proximal subsegmental branches and demonstrates no filling defects to suggest pulmonary thromboembolic disease. CT CHEST: Indeterminate prominent lymph node posterior lateral to the right scapula measures 1.3 x 0.8 cm. No pathologically enlarged lymph nodes are identified. No thyroid nodule. No pneumothorax, pleural effusion, overt pulmonary edema or airspace consolidation typical for pneumonia. Mild subpleural reticulation of the lung bases suggests mild fibrosis with atelectasis. There are no suspicious pulmonary nodules or masses identified. The central airways appear patent. Moderate amount of partially imaged upper abdominal pneumoperitoneum. Tiny hiatal hernia. 1.5 cm hypodense focus of the hepatic dome is unchanged. Soft tissues are unremarkable. Degenerative changes of the shoulders and spine. IMPRESSION: 1. No acute intrathoracic abnormality, specifically there is no evidence of pulmonary thromboembolic disease. 2. Moderate upper abdominal pneumoperitoneum. In the absence of recent abdominal surgery, these findings are suggestive of perforated hollow viscus. Surgical consultation with CT abdomen and pelvis is recommended to further evaluate. ACT 112: Negative or not required by law. The above report was generated using voice recognition software. It may contain grammatical, syntax or spelling errors. Electronically signed by: Dima Lama M.D. 07/18/2019 4:18 PM Dictated: 07/18/19 1611 Transcribed: 07/18/[address] SCAN OF THE ABDOMEN AND PELVIS WITHOUT IV CONTRAST CLINICAL HISTORY: Free air seen by chest CT. COMPARISON STUDY: Abdominal CT dated 06/16/2019. Chest CT dated 07/18/2019. TECHNIQUE: CT scan of the abdomen and pelvis is performed from the lung bases to the proximal femora. Images are reviewed in the axial, sagittal, and coronal planes. IV contrast was not administered for this examination. A dose lowering technique was utilized adhering to the principles of ALARA. CT DOSE: 438.29 mGy.cm FINDINGS: Lung bases: The heart is normal in size noting a small pericardial effusion. There are coronary artery calcifications. The lung bases are clear noting bibasilar scarring/atelectasis. There is a small hiatal hernia. Liver: The unenhanced liver is enlarged, measuring 19.2 cm in length. The liver demonstrates diffusely diminished attenuation consistent with hepatic steatosis. There is minimal central intrahepatic biliary ductal dilatation. 1.5 cm cyst is noted in the right lobe. Gallbladder: Surgically absent. Spleen: Normal in size and attenuation. Pancreas: Unremarkable. Adrenal glands: Unremarkable. Kidneys: The unenhanced kidneys demonstrate cortical atrophy and are without hydronephrosis. The presence of renal calculi is not well evaluated due to the presence of excreted contrast within the kidneys and ureters. There is no evidence of urothelial lesion within the renal pelvis bilaterally or along the course of ureters. There is no evidence of contour deforming renal mass lesion. Abdominal vasculature: The abdominal aorta is normal in course and caliber noting moderate to advanced atherosclerotic calcification. Bowel: There is postoperative change from sigmoid colon resection with left lower quadrant colostomy and Contreras pouch formation. No bowel obstruction is seen. There is mild diverticulosis of the remaining colon without CT evidence of acute diverticulitis. There are small duodenal diverticula. There is also extensive diverticulosis of the small bowel. There are fluid-filled loops of small bowel. No bowel wall thickening or pneumatosis intestinalis is identified. The appendix is well-visualized and normal. Peritoneum: There are numerous small foci of intraperitoneal scattered throughout the abdomen, greatest below the diaphragm. No abdominal ascites is seen. Midline surgical scar is noted. Lymphadenopathy: None. Pelvic viscera: The bladder is filled with excreted IV contrast but otherwise normal in appearance. The uterus and adnexa are normal as visualized. Skeletal structures: The skeletal structures are osteopenic. Moderate lumbosacral spondylosis is observed. No lytic or blastic lesions are seen. IMPRESSION: 1. There are numerous small foci of intraperitoneal free air, which is highly concerning for visceral perforation. The site of perforation is not delineated. Surgical consultation is advised. 2. There is postoperative change from sigmoid colon resection with left lower quadrant colostomy. No bowel obstruction is identified. 3. There is mild diverticulosis of the remaining colon as well as extensive diverticulosis of the small bowel. There is no clear CT evidence of acute diverticulitis at the time of examination. 4. Hepatomegaly and hepatic steatosis. 5. Small pericardial effusion. 6. Additional findings as above. ACT 112: Negative or not required by law. Electronically signed by: Remigio Lux M.D. 07/18/2019 5:20 PM Dictated: 07/18/191704 Transcribed: 07/18/191704
[2019-07-18] MEDS ORDERED: ONDANSETRON INJ 2 MG/ML 2 ML VIAL IV PRN (21:24)
[2019-07-18] MEDS ORDERED: ACETAMINOPHEN 1,000 MG/100 ML VIAL IV PRN (21:24)
[2019-07-18] MEDS ORDERED: MICONAZOLE NITRATE POWDER 43 GM EXT PRN (21:46)
[2019-07-18] MEDS: PIPERACILLIN/TAZOBACTAM 3.375 GM in DEXTROSE 5% 100 ML IV SCH (22:53)
[2019-07-18] MEDS ORDERED: SODIUM CHLORIDE 0.9% 500 ML IV SCH (23:00)
[2019-07-19] MEDS: PIPERACILLIN/TAZOBACTAM 3.375 GM in DEXTROSE 5% 100 ML IV SCH ×3 (05:49→21:33)
--- NOTE | 2019-07-19 08:10 | Surgery Progress Note ---
Date of Service July 19, 2019 Assessment & Plan (1) Intra-abdominal free air of unknown etiology: Abdominal exam benign and patient denies any abdominal or chest pain Free air likely from history of diverticuli Will await labs from this AM, if no elevated WBC # then will advance diet Would continue on course of abx Pt seen with Dr. Gant as above. pt looks/feels great. no pain. walking around her room unassisted. "hungry". abd: completely benign exam. stoma looks good. incisions healed. suspect pneumoperitoneum from her many small bowel diverticuli.... ok to advance diet. no surgical interventions planned. Subjective Patient's chest pain has resolved. She denies any abdominal pain at this time. She has been up and ambulating to and from the bathroom this AM. Physical Exam Physical Exam: awake/alert Gastrointestinal (Abdomen): Inspection/Auscultation: + abdominal surgical scar Percussion/Palpation: abdomen soft; abdomen nontender ostomy with brown output Results & Data Vital Signs (Past 12 Hours) Vital Signs Temp Pulse Pulse Pulse Resp BP BP 07/19/19 01:25 70 07/18/19 23:42 36.6 C 81 20 117/54 L 07/18/19 21:15 36.9 C 86 16 07/18/19 20:31 81 15 141/78 H 07/18/19 20:30 BP Pulse Ox 07/19/19 01:25 07/18/19 23:42 96 07/18/19 21:15 154/68 H 97 07/18/19 20:31 94 07/18/19 20:30 94 PG Care Time/CCT Total # of Minutes Spent Total Time Spent with Patient: Total time spent is greater than 50% in coordination of care (as documented) at patient's floor/unit and/or counseling patient: Coding Level of Care Code 72481 Subseq Hosp Care Lvl 3 Diagnoses Intra-abdominal free air of unknown etiology K66.8
[2019-07-19 08:18] LABS: Hematocrit (blood only) 32.5 % (37-47); Hemoglobin 10.8 g/dL (12.0-16.0); Mean Corpuscular Hemoglobin 29.6 pg (25-34); Mean Corpuscular Hgb Conc 33.2 g/dL (32-36); Mean Platelet Volume 10.2 fL (7.4-10.4); Platelet Count 286 K/uL (130-400); Red Blood Count 3.65 M/uL (4.2-5.4); White Blood Count 7.83 K/uL (4.8-10.8)
[2019-07-19 08:39] LABS: Calcium 8.5 mg/dl (8.5-10.1); Est GFR (African American) 94.2; Est GFR (Non-African American) 81.3; Potassium 3.6 mmol/L (3.5-5.1)
[2019-07-19] MEDS ORDERED: LEVOTHYROXINE SODIUM 50 MCG in SYRINGE 0 ML IV SCH (09:00)
[2019-07-19] MEDS: FAMOTIDINE 40 MG TABLET PO SCH ×2 (09:53→21:32)
[2019-07-19] MEDS: AMLODIPINE BESYLATE 5 MG TAB PO SCH (09:53)
[2019-07-19] MEDS: LEVOTHYROXINE SODIUM 100 MCG TABLET PO SCH (09:53)
[2019-07-19] MEDS: METOPROLOL TARTRATE 100 MG TAB PO SCH (09:54)
[2019-07-19] MEDS ORDERED: PANTOprazole 40 MG in SYRINGE 0 ML IV SCH (11:00)
[2019-07-19] MEDS: LACTOBACILLUS ACIDOPHILUS (FLORANEX) TAB PO SCH ×3 (11:53→21:32)
--- NOTE | 2019-07-19 16:11 | Hospitalist Progress Note ---
Date of Service July 19, 2019 Assessment & Plan (1) Pneumoperitoneum of unknown etiology: Abdominal Pneumoperitoneum: 83 year old female with history of Diverticulosis, Perforated Colon s/p Sigmoid Resection, Colostomy placement 2019, GERD, Hiatal Hernia, presenting right sided chest pain Per admitting service notes: CTA chest showed no PE CT abd/pelvis showed numerous small foci of intraperitoneal free air, which is highly concerning for visceral perforation. Troponin on admission negative Received IV Zosyn in the ER 07/19/2019 Clinically improved today General surgery not recommending any surgical procedure, continue IV antibiotics, Advance to low fiber diet this morning, tolerating well Continue to monitor Appreciate general surgery recommendations Gram-negative bacilli UTI UA positive for Leukocytes and bacteria Urine culture: Gram-negative bacilli Continue IV Zosyn History of diastolic CHF Patient's recent echo on 06/16/2019, normal ejection fraction/grade 1 diastolic dysfunction/HFpEF Euvolemic DC IV fluids now that patient is eating Hx C-Diff Recently completed course of PO Vanco Stable Hx Pericarditis Per admitting service notes: Found to have pericardial effusion Echo on 06/08 revealed EF 65 to 70%, grade 1 diastolic dysfunction, pericardial effusion Symptoms felt likely secondary to acute pericarditis was treated with colchicine that was discontinued secondary to JAVIER and pancreatitis Stable HYPERTENSION Continue Metoprolol, Amlodipine Continue monitor BP HYPOTHYROIDISM Continue p.o. levothyroxine DVT prophylaxis SCDs only for now, in light of possible surgical procedure CODE STATUS Full code as per patient Disposition: Anticipate discharge home when medically stable Admission and Anticipated Discharge Date Admission Date: July 18, 2019 Subjective Follow-up for pneumoperitoneum likely secondary to perforated diverticulosis Seen sitting up in bed, comfortable, watching TV, not in distress, in good spirits Dates that she feels improved today compared to yesterday Nominal pain is improving, almost resolved Tolerated low fiber diet in the morning No nausea, no vomiting, no fevers or chills Colostomy output also improving Denies any other symptoms Review of Systems Review of Systems: All systems reviewed & are unremarkable except as noted in HPI & below Physical Exam Physical Exam: General- oriented x 3, not in distress, speaks in sentences with no effort or accessory muscle use Head- atraumatic Eyes- PERRL, EOMI, anicteric ENT- oropharynx clear Neck- supple, no JVD, no adenopathy, no thyromegaly; carotids +2/2, no bruits appreciated Lungs- clear to auscultation bilaterally, no rales/wheezes Heart- normal rate, regular rhythm; no murmur, no gallop, no rub appreciated Abdomen- normal bowel sounds, nondistended, soft, mild tenderness in all quadrants, no masses or hepatosplenomegaly Colostomy in the left lower quadrant: Positive brown formed stools Extremities- no pretibial edema, no calf tenderness; peripheral pulses intact Neuro- alert, oriented x 3; CN 2-12 grossly intact; motor 5/5 bilaterally;sensation 100% on all extremities; no other gross focal neurologic deficits Skin- warm & dry Results & Data Results & Data ([facility]) Vital Signs (Past 12 Hours) Vital Signs Temp Pulse Pulse Pulse Resp BP BP 07/19/19 12:00 36.9 C 64 18 146/93 H 07/19/19 11:04 36.8 C 72 18 141/82 H 07/19/19 09:50 72 07/19/19 09:44 60 07/19/19 08:53 36.5 C 66 18 129/65 Pulse Ox 07/19/19 12:00 94 07/19/19 11:04 94 07/19/19 09:50 07/19/19 09:44 07/19/19 08:53 94 Laboratory Results Laboratory Results - last 24 hr 07/19/19 07/19/19 07:19 07:19 WBC 7.83 RBC 3.65 L Hgb 10.8 L Hct 32.5 L MCV 89.0 MCH 29.6 MCHC 33.2 RDW Std Deviation 52.0 H RDW Coeff of Grecia 16.0 H Plt Count 286 MPV 10.2 Sodium 141 Potassium 3.6 Chloride 107 Carbon Dioxide 26 Anion Gap 8.0 BUN 12 Creatinine 0.67 Est Cr Clr Drug Dosing 55.0 Est GFR ( Amer) 94.2 Est GFR (Non-Af Amer) 81.3 Fasting Glucose 85 Calcium 8.5
[2019-07-20] MEDS: LEVOTHYROXINE SODIUM 100 MCG TABLET PO SCH (05:34)
[2019-07-20] MEDS: PIPERACILLIN/TAZOBACTAM 3.375 GM in DEXTROSE 5% 100 ML IV SCH ×2 (05:34→14:13)
[2019-07-20 08:09] LABS: Basophils # (auto) 0.04 K/uL (0-0.2); Basophils % (auto) 0.7 %; Eosinophils # (auto) 0.27 K/uL (0-0.5); Eosinophils % (auto) 4.4 %; Immature Granulocytes # (auto) 0.01 K/uL (0.00-0.02); Immature Granulocytes % (auto) 0.2 %; Lymphocytes # (auto) 1.45 K/uL (1.2-3.4); Lymphocytes % (auto) 23.9 %; Mean Corpuscular Hemoglobin 29.4 pg (25-34); Mean Corpuscular Hgb Conc 33.3 g/dL (32-36); Mean Corpuscular Volume 88.2 fL (80-100); Mean Platelet Volume 10.1 fL (7.4-10.4); Monocytes # (auto) 0.52 K/uL (0.11-0.59); Monocytes % (auto) 8.6 %; Neutrophils # (auto) 3.78 K/uL (1.4-6.5); Neutrophils % (auto) 62.2 %; Platelet Count 286 K/uL (130-400); RDW Coefficient of Variation 15.9 % (11.5-14.5); RDW Standard Deviation 50.7 fL (36.4-46.3); Red Blood Count 3.74 M/uL (4.2-5.4); White Blood Count 6.07 K/uL (4.8-10.8)
--- NOTE | 2019-07-20 08:15 | Surgery Progress Note ---
Date of Service July 20, 2019 Assessment & Plan (1) Intra-abdominal free air of unknown etiology: Patient tolerated advancement in diet yesterday Abdomen soft and non tender, + stool output from ostomy Okay for discharge from surgical standpoint, no need for abx at time of disposition Subjective Patient says she is feeling well. No complaints of abdominal or chest pain. Has been tolerating a diet without issues. Physical Exam Physical Exam: awake/alert, seen walking around in room Gastrointestinal (Abdomen): Inspection/Auscultation: + abdominal surgical scar; abdomen not distended Percussion/Palpation: abdomen soft; abdomen nontender ostomy with + brown output Results & Data Vital Signs (Past 12 Hours) Vital Signs Temp Pulse Pulse Resp BP Pulse Ox 07/20/19 03:44 36.7 C 74 20 131/74 95 07/20/19 02:16 61 07/19/19 23:33 36.5 C 66 20 129/73 95 PG Care Time/CCT Total # of Minutes Spent Total Time Spent with Patient: Total time spent is greater than 50% in coordination of care (as documented) at patient's floor/unit and/or counseling patient: Coding Level of Care Code 18943 Subseq Hosp Care Lvl 1 Diagnoses Intra-abdominal free air of unknown etiology K66.8
[2019-07-20] MEDS: FAMOTIDINE 40 MG TABLET PO SCH (08:28)
[2019-07-20] MEDS: METOPROLOL TARTRATE 100 MG TAB PO SCH (08:28)
[2019-07-20] MEDS: AMLODIPINE BESYLATE 5 MG TAB PO SCH (08:29)
[2019-07-20] MEDS: LACTOBACILLUS ACIDOPHILUS (FLORANEX) TAB PO SCH ×2 (08:30→11:51)
[2019-07-20 08:44] LABS: BUN Creatinine Ratio 12.8 (10-20); Calcium 8.5 mg/dl (8.5-10.1); Creatinine Clr Calc Pharmacy 46.5 ml/min; Est GFR (African American) 80.2; Est GFR (Non-African American) 69.2; Potassium 3.6 mmol/L (3.5-5.1)
--- NOTE | 2019-07-20 13:36 | Hospitalist Progress Note ---
Date of Service July 20, 2019 Assessment & Plan (1) Pneumoperitoneum of unknown etiology: Abdominal Pneumoperitoneum: 83 year old female with history of Diverticulosis, Perforated Colon s/p Sigmoid Resection, Colostomy placement 2019, GERD, Hiatal Hernia, presenting right sided chest pain Per admitting service notes: CTA chest showed no PE CT abd/pelvis showed numerous small foci of intraperitoneal free air, which is highly concerning for visceral perforation. Troponin on admission negative Received IV Zosyn in the ER 07/20/2019 Significantly improved, tolerating diet well, normal colostomy output General surgery not recommending any surgical procedure No indication for antibiotics per general surgery service, cleared for discharge today Follow-up with PCP next week Per general surgery Dr. Jama Gant [facility] physicians group in 2 weeks E. coli UTI UA positive for Leukocytes and bacteria Urine culture: E. coli, sensitive to cephalosporins, resistant to ampicillin and ampicillin sulbactam Given IV Zosyn x2 days, continue cefuroxime x1 more day to complete 3 days of treatment Repeat urinalysis and urine culture on follow-up with PCP next week Patient advised to take probiotics for at least a month History of diastolic CHF Patient's recent echo on 06/16/2019, normal ejection fraction/grade 1 diastolic dysfunction/HFpEF Euvolemic Hx C-Diff Recently completed course of PO Vanco Stable Hx Pericarditis Per admitting service notes: Found to have pericardial effusion Echo on 06/08 revealed EF 65 to 70%, grade 1 diastolic dysfunction, pericardial effusion Symptoms felt likely secondary to acute pericarditis was treated with colchicine that was discontinued secondary to JAVIER and pancreatitis Stable HYPERTENSION Continue Metoprolol, Amlodipine Continue monitor BP HYPOTHYROIDISM Continue p.o. levothyroxine DVT prophylaxis SCDs given, to coagulation avoided in light of possible surgical procedure CODE STATUS Full code as per patient Disposition: Follow-up with PCP next week Follow-up with general surgeon Dr. Jama Garcia in about a physicians group in 2 weeks Admission and Anticipated Discharge Date Admission Date: July 18, 2019 Subjective Follow-up for pneumoperitoneum Seen resting in bed, comfortable, in good spirits, watching TV States she feels much better today Denies abdominal pain, nausea vomiting, tolerating diet well Normal ostomy output Denies fevers or chills, chest pain, shortness of breath, palpitations, dizziness No other symptoms States that she is ready and would like to be discharged today Review of Systems Review of Systems: All systems reviewed & are unremarkable except as noted in HPI & below Physical Exam Physical Exam: General- oriented x 3, not in distress, speaks in sentences with no effort or accessory muscle use Eyes- anicteric Neck- no JVD Lungs- clear breath sounds bilaterally, no rales/wheezes Heart- normal rate, regular rhythm; no murmurs Abdomen- normal bowel sounds, nondistended, soft, nontender Colostomy-no signs of infection, formed brown stools Extremities- no pretibial edema, no calf tenderness Neuro- alert, oriented x 3; no gross focal neurologic deficits Skin- warm & dry Results & Data Results & Data ([facility]) Vital Signs (Past 12 Hours) Vital Signs Temp Pulse Pulse Resp BP BP Pulse Ox 07/20/19 11:25 36.7 C 62 18 134/80 93 07/20/19 08:30 36.3 C L 74 16 132/66 96 07/20/19 08:00 58 L 07/20/19 03:44 36.7 C 74 20 131/74 95 07/20/19 02:16 61
--- NOTE | 2019-07-20 14:03 | Discharge Summary ---
Date of Service July 20, 2019 Admission HPI Per Admitting Provider 84 year old female with history of Diverticulosis, Perforated Colon s/p Sigmoid Resection, Colostomy placement 2019, GERD, Hiatal Hernia, pericarditis presented to the ER with right sided chest pain. Pt recently discharged on 06/17 for pancreatitis and C-diff. She said that she completed the course of PO Vanco. she said that for the last 24 hours she has had right-sided chest pain. She described the pain as sharp in nature, grade 6-7 out 10 and worsening when she is lying down and take deep breath. She said that she does have mild SOB because she unable to take deep breath. She said that the pain improved when sitting. Pt said that she felt bloating and low appetite about few days ago. Denies any fever, chills, dizziness, cough and abdominal pain. Denies any recent contact with anyone positive for covid-[address] chest was done in the ER to r/o PE showed no evidence of pulmonary thromboembolic disease, but moderate upper abdominal pneumoperitoneum. Admission Exam Per Admitting Provider General- No acute distress Head- atraumatic Eyes- PERRL, EOMI, ENT- oropharynx clear Neck- supple, no JVD Lungs- clear to auscultation Heart- regular rhythm; no murmur Abdomen- normal bowel sounds, nontender, +colostomy bag in LLQ Extremities- no calf tenderness Neuro- alert, oriented x 3; PERRL, EOMI; no facial palsy; no dysarthria Skin- warm & dry Principal Diagnosis Pneumoperitoneum, likely secondary to diverticulosis Discharge Exam General- oriented x 3, not in distress, speaks in sentences with no effort or accessory muscle use Eyes- anicteric Neck- no JVD Lungs- clear breath sounds bilaterally, no rales/wheezes Heart- normal rate, regular rhythm; no murmurs Abdomen- normal bowel sounds, nondistended, soft, nontender Colostomy-no signs of infection, formed brown stools Extremities- no pretibial edema, no calf tenderness Neuro- alert, oriented x 3; no gross focal neurologic deficits Skin- warm & dry Discharge Data Allergies Allergy/AdvReac Type Severity Reaction Status Date / Time codeine AdvReac Intermediate NAUSEA, Verified 07/18/19 17:53 VOMITING colchicine AdvReac Intermediate GI side Verified 07/18/19 17:53 effects fentanyl AdvReac Intermediate vomiting Verified 07/18/19 17:53 Consultations 07/18/19 17:01 ED Decision to Admit Stat 07/18/19 21:24 Consult General Surgery Routine Ordered Studies 07/18/19 15:10 CT angio chest PE protocol Stat COMPARISON: Chest radiograph of same day, CTA chest 05/26/2019 FINDINGS: CTA: Heart is upper limits of normal in size. Trace pericardial effusion. Minimal coronary artery calcifications. No thoracic aortic aneurysm or dissection. Patency of the imaged great vessels. Pulmonary arterial tree is opacified to level of the proximal subsegmental branches and demonstrates no filling defects to suggest pulmonary thromboembolic disease. CT CHEST: Indeterminate prominent lymph node posterior lateral to the right scapula measures 1.3 x 0.8 cm. No pathologically enlarged lymph nodes are identified. No thyroid nodule. No pneumothorax, pleural effusion, overt pulmonary edema or airspace consolidation typical for pneumonia. Mild subpleural reticulation of the lung bases suggests mild fibrosis with atelectasis. There are no suspicious pulmonary nodules or masses identified. The central airways appear patent. Moderate amount of partially imaged upper abdominal pneumoperitoneum. Tiny hiat al hernia. 1.5 cm hypodense focus of the hepatic dome is unchanged. Soft tissues are unremarkable. Degenerative changes of the shoulders and spine. IMPRESSION: 1. No acute intrathoracic abnormality, specifically there is no evidence of pulmonary thromboembolic disease. 2. Moderate upper abdominal pneumoperitoneum. In the absence of recent abdominal surgery, these findings are suggestive of perforated hollow viscus. Surgical consultation with CT abdomen and pelvis is recommended to further evaluate. 07/18/19 16:38 CT abd pelvis wo con Stat CT DOSE: 438.29 mGy.cm FINDINGS: Lung bases: The heart is normal in size noting a small pericardial effusion. There are coronary artery calcifications. The lung bases are clear noting bibasilar scarring/atelectasis. There is a small hiatal hernia. Liver: The unenhanced liver is enlarged, measuring 19.2 cm in length. The liver demonstrates diffusely diminished attenuation consistent with hepatic steatosis. There is minimal central intrahepatic biliary ductal dilatation. 1.5 cm cyst is noted in the right lobe. Gallbladder: Surgically absent. Spleen: Normal in size and attenuation. Pancreas: Unremarkable. Adrenal glands: Unremarkable. Kidneys: The unenhanced kidneys demonstrate cortical atrophy and are without hydronephrosis. The presence of renal calculi is not well evaluated due to the presence of excreted contrast within the kidneys and ureters. There is no evidence of urothelial lesion within the renal pelvis bilaterally or along the course of ureters. There is no evidence of contour deforming renal mass lesion. Abdominal vasculature: The abdominal aorta is normal in course and caliber noting moderate to advanced atherosclerotic calcification. Bowel: There is postoperative change from sigmoid colon resection with left lower quadrant colostomy and Contreras pouch formation. No bowel obstruction is seen. There is mild diverticulosis of the remaining colon without CT evidence of acute diverticulitis. There are small duodenal diverticula. There is also extensive diverticulosis of the small bowel. There are fluid-filled loops of small bowel. No bowel wall thickening or pneumatosis intestinalis is identified. The appendix is well-visualized and normal. Peritoneum: There are numerous small foci of intraperitoneal scattered throughout the abdomen, greatest below the diaphragm. No abdominal ascites is seen. Midline surgical scar is noted. Lymphadenopathy: None. Pelvic viscera: The bladder is filled with excreted IV contrast but otherwise normal in appearance. The uterus and adnexa are normal as visualized. Skeletal structures: The skeletal structures are osteopenic. Moderate lumbosacral spondylosis is observed. No lytic or blastic lesions are seen. IMPRESSION: 1. There are numerous small foci of intraperitoneal free air, which is highly concerning for visceral perforation. The site of perforation is not delineated. Surgical consultation is advised. 2. There is postoperative change from sigmoid colon resection with left lower quadrant colostomy. No bowel obstruction is identified. 3. There is mild diverticulosis of the remaining colon as well as extensive diverticulosis of the small bowel. There is no clear CT evidence of acute diverticulitis at the time of examination. 4. Hepatomegaly and hepatic steatosis. 5. Small pericardial effusion. 6. Additional findings as above. Hospital Course (1) Pneumoperitoneum of unknown etiology: Abdominal Pneumoperitoneum: 83 year old female with history of Diverticulosis, Perforated Colon s/p Sigmoid Resection, Colostomy placement 2018, GERD, Hiatal Hernia, presenting right sided chest pain Per admitting service notes: CTA chest showed no PE CT abd/pelvis showed numerous small foci of intraperitoneal free air, which is highly concerning for visceral perforation. Troponin on admission negative Received IV Zosyn in the ER 07/20/2019 Significantly improved, tolerating diet well, normal colostomy output General surgery not recommending any surgical procedure No indication for antibiotics per general surgery service, cleared for discharge today Follow-up with PCP next week Per general surgery Dr. Jama Gant [facility] physicians group in 2 weeks E. coli UTI UA positive for Leukocytes and bacteria Urine culture: E. coli, sensitive to cephalosporins, resistant to ampicillin and ampicillin sulbactam Given IV Zosyn x2 days, continue cefuroxime x1 more day to complete 3 days of treatment Repeat urinalysis and urine culture on follow-up with PCP next week Patient advised to take probiotics for at least a month Abnormal CT findings Please refer to full reports in the ordered studies section above CT Chest: Indeterminate prominent lymph node posterior lateral to the right scapula measures 1.[address] abdmen and pelvis: Liver: The unenhanced liver is enlarged, measuring 19.2 cm in length. The liver demonstrates diffusely diminished attenuation consistent with hepatic steatosis. There is minimal central intrahepatic biliary ductal dilatation. 1.5 cm cyst is noted in the right lobe. Further work-up and follow-up as an outpatient History of diastolic CHF Patient's recent echo on 06/16/2019, normal ejection fraction/grade 1 diastolic dysfunction/HFpEF Euvolemic Hx C-Diff Recently completed course of PO Vanco Stable Hx Pericarditis Per admitting service notes: Found to have pericardial effusion Echo on 06/08 revealed EF 65 to 70%, grade 1 diastolic dysfunction, pericardial effusion Symptoms felt likely secondary to acute pericarditis was treated with colchicine that was discontinued secondary to JAVIER and pancreatitis Stable HYPERTENSION Continue Metoprolol, Amlodipine Continue monitor BP HYPOTHYROIDISM Continue p.o. levothyroxine DVT prophylaxis SCDs given, to coagulation avoided in light of possible surgical procedure CODE STATUS Full code as per patient Disposition: Follow-up with PCP next week Follow-up with general surgeon Dr. Jama Garcia in about a physicians group in 2 weeks Total Time Total Time Spent Total Time Spent (In Minutes): 50 minutes Discharge Plan Discharge Items Patient Disposition: Home - Home Health Services Reason For Visit: RIGHT SIDED CHEST PAIN Discharge Diagnosis: Pneumoperitoneum, likely secondary to diverticulosis Condition on Discharge: Good Activity: Resume your previous activity Activity Comment: Resume activity gradually as tolerated, no heavy exertion Lifting: Wait until after follow-up appointment Exercise/Sports: Wait until after follow-up appointment Driving/Machine Use: No driving until reevaluated and allowed by primary care ph ysician Non-emergency contact: Primary Care Provider Call non-emergency contact if: you have any medication questions and you have a fever Follow-up/Referrals: Jama Gant, DO [Surgeon] - Nahid Nicholas [Primary Care Provider] - Diet: Heart Healthy Addtl Attending Provider Instructions: Your new medication is cefuroxime- antibiotic for urinary tract infection. You should return to the ER immediately if with recurrence or worsening symptoms. Follow-up with your primary care physician next week. You need a repeat urine testing to check for resolution of UTI upon follow-up with your primary care physician next week. Follow-up with Dr. Jama Gant, general surgeon-[facility] group, in 2 weeks. Please call his office to set up an appointment. Contact information as outlined above. Continue taking probiotics daily. Drink plenty of fluids. Pending Studies at Discharge: Yes Studies:: Repeat urinalysis and urine culture on follow-up with primary care physician next week. Stand-Alone Forms: [facility], Sm[facility] Cessation Medications and DC Order Prescriptions: New cefuroxime axetil 250 mg tablet 250 mg PO Q12H Qty: 2 RF: 0 Continued Probiotic 3 billion cell Capsule 0 mmu cells PO DAILY RF: 0 nystatin [Nystop] 100,000 unit/gram powder 1 applic TOPICAL TID RF: 0 multivitamin Tablet,Chewable 1 tab PO DAILY RF: 0 metoprolol tartrate [Lopressor] 100 mg tablet 100 mg PO QAM RF: 0 famotidine [Pepcid] 40 mg tablet 40 mg PO BID RF: 0 amlodipine [Norvasc] 5 mg tablet 5 mg PO QAM RF: 0 levothyroxine 100 mcg tablet 100 mcg PO QAM RF: 0 acetaminophen [Tylenol] 325 mg Tablet 325 mg PO QID PRN (Reason: Pain) RF: 0 ondansetron HCl [Zofran] 4 mg tablet 4 mg PO Q12H PRN (Reason: nausea and vomiting) Qty: 30 RF: 0 Discharge Orders: Discharge Order (Routine); Ordered 07/20/19 Ordered By: Jerrod Valdez Admission Data Admit Date/Time: 07/18/19 19:08 Attending Provider: Jerrod Valdez Admit Provider: Narda Farah Primary Care Provider: Nahid Nicholas Other Providers: Narda Farah ; Jama Gant
== END 2019-07-20 16:00 | disposition home health service (06) | DRG 393 ==
LOC: ED 14:05 → SUATTDRO 19:08 → 2W 19:08

== ENCOUNTER 2020-01-18 18:46 | Observation (INO) ==
[2020-01-18 21:13] LABS: Basophils # (auto) 0.04 K/uL (0-0.2); Basophils % (auto) 0.4 %; Eosinophils # (auto) 0.19 K/uL (0-0.5); Eosinophils % (auto) 2.1 %; Hematocrit (blood only) 39.2 % (37-47); Immature Granulocytes # (auto) 0.02 K/uL (0.00-0.02); Immature Granulocytes % (auto) 0.2 %; Lymphocytes # (auto) 1.93 K/uL (1.2-3.4); Lymphocytes % (auto) 21.7 %; Mean Corpuscular Hemoglobin 28.6 pg (25-34); Mean Corpuscular Hgb Conc 33.2 g/dL (32-36); Mean Corpuscular Volume 86.3 fL (80-100); Mean Platelet Volume 10.5 fL (7.4-10.4); Monocytes # (auto) 0.65 K/uL (0.11-0.59); Monocytes % (auto) 7.3 %; Neutrophils # (auto) 6.08 K/uL (1.4-6.5); Neutrophils % (auto) 68.3 %; Platelet Count 325 K/uL (130-400); RDW Coefficient of Variation 14.7 % (11.5-14.5); RDW Standard Deviation 46.5 fL (36.4-46.3); Red Blood Count 4.54 M/uL (4.2-5.4); White Blood Count 8.91 K/uL (4.8-10.8)
[2020-01-18 21:28] LABS: Albumin Level 3.2 gm/dl (3.4-5.0); BUN Creatinine Ratio 13.8 (10-20); Calcium 9.4 mg/dl (8.5-10.1); Creatinine Clr Calc Pharmacy 43.2 ml/min; Est GFR (African American) 73.4; Est GFR (Non-African American) 63.4; Potassium 3.9 mmol/L (3.5-5.1)
[2020-01-18 21:31] LABS: Albumin Globulin Ratio 0.8 (0.9-2); Bilirubin,Total 0.6 mg/dl (0.2-1); Globulin 3.9 gm/dl (2.5-4.0); Total Protein 7.1 gm/dl (6.4-8.2)
[2020-01-18] MEDS ORDERED: SODIUM CHLORIDE 0.9% 1000ML 1,000 ML IV STA (22:36)
[2020-01-18 22:49] LABS: Appearance Urine Clear (Clear); Bilirubin Urine Negative (Negative); Blood Urine Negative (Negative); Color Urine Yellow; Glucose Urine UA Negative (Negative); Ketones Urine Negative (Negative); Leukocyte Esterase Urine Negative (Negative); Nitrite Urine Negative (Negative); Protein Urine Negative (Negative); Specific Gravity Urine 1.023 (1.000-1.030); Urobilinogen Urine Negative (Negative); pH Urine 5.5 (4.5-7.5)
[2020-01-18 23:36] LABS: Magnesium 1.9 mg/dl (1.8-2.4)
--- NOTE | 2020-01-18 23:50 | Surgery Consultation ---
Date of Consultation January 18, 2020 Assessment & Plan (1) Abdominal pain: -exam benign at the resent time -pt. noted to be afebrile with normal WBC several hours after her CT scan -as her exam is entirely benign, no need for surgical intervention at this time -recommend admission by hospitalist for observation: -allow clears tonight and if exam in the am is benign will consider advancing diet -plan discussed with pt., daughter at bedside, and the treating ED physician Supervising Physician Co-Signing Physician Notes I personally saw and evaluated the patient with Manuel Chase PA-C and agree with the assessment and plan 84 yo s/p Amira's 18 months ago, here with scattered pneumoperitoneum on CT -CT images and results reviewed -Has pneumoperitoneum similar to CT scan in June 2019, no signs of bowel c ompromise -No leukocytosis and no abdominal pain and has colostomy function without N/V -No plans for surgical intervention -Clears tonight, may advance in AM History of Present Illness History of Present Illness 84 year old female presented to the [facility] ED at recommendation of her GI specialist. The pt. has been having about 1 week of generalized, non-specific abdominal pain unrelated to meals. She notes her abdomen get hard and painful, but then improved after having a fairly large BM. She has no fevers, shakes, chills. No N/V. She was sent for a CT scan of the abdomen which showed concern for a parastomal hernia and free air. She was seen for a similar problem in April of this year, and at that time her abdominal exams remained benign and no surgery was needed. After her CT scan, she was seen in the ED and was noted to be afebrile with normal WBC. At the time of my visit, she was in no distress and pain free. CT scan Allergies Allergy/AdvReac Type Severity Reaction Status Date / Time codeine AdvReac Intermediate NAUSEA, Verified 01/19/20 01:37 VOMITING colchicine AdvReac Intermediate GI side Verified 01/19/20 01:37 effects fentanyl AdvReac Intermediate vomiting Verified 01/19/20 01:37 Home Medications Medication Instructions Recorded Confirmed Type amlodipine [Norvasc] 5 mg PO QAM 05/26/19 01/19/20 History famotidine [Pepcid] 40 mg PO BID 05/26/19 01/19/20 History levothyroxine 100 mcg PO DAILYBB 05/26/19 01/19/20 History metoprolol tartrate [Lopressor] 100 mg PO HS 05/26/19 01/19/20 History Probiotic 0 mmu cells PO DAILY 07/18/19 01/19/20 History nystatin [Nystop] 1 applic TOPICAL TID PRN 07/18/19 01/19/20 History pantoprazole [Protonix] 40 mg PO DAILY 07/23/19 01/19/20 History Patient History Medical History Colostomy present Diverticulitis of colon with perforation Diverticulosis GERD (gastroesophageal reflux disease) Hiatal hernia HTN (hypertension) Hypothyroidism Surgical History History of cataract surgery History of colostomy Hx of cholecystectomy Family History Sister Breast cancer Coronary heart disease Brother Coronary heart disease Other Hypertension Social History Smoking Status: Never smoker Hx Alcohol Use: No Hx Substance Use: No Preferred Language: Kinyarwanda Communication Ability: Effective 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: No Beliefs That Will Affect Care: None marital status: / Current Living Situation: Alone How many Children do You have: 3 Feels Safe at Home: Yes Assistive Devices: None Review of Systems Constitutional: no fever and no chills Eyes: no diplopia Ear, Nose, Mouth, Throat: no ear pain Respiratory: no cough and no dyspnea Cardiovascular: no chest pain Gastrointestinal: + abdominal pain; no nausea and no vomiting Genitourinary: + dysuria Musculoskeletal: no back pain Integumentary: no rash Neurologic: no localized weakness Physical Exam Constitutional: well developed and well nourished; no acute distress Eyes: no conjunctival abnormality ENMT: Ears: no hearing impairment Neck: trachea midline Respiratory: normal respiratory effort; no respiratory distress and no labored breathing Cardiovascular: Rate/Rhythm: regular rate and regular rhythm Gastrointestinal (Abdomen): Percussion/Palpation: abdomen soft; abdomen nontender and no guarding ostomy was pink and viable; air noted in collection bag; no peritoneal signs Musculoskeletal: no calf pain Skin: no rashes, warm and dry Neurologic: moves all extremities Psychiatric: A+Ox3, euthymic affect Results & Data ([facility]) Vital Signs (Past 12 Hours) Vital Signs Temp Pulse Pulse Resp BP BP Pulse Ox 01/18/20 22:30 75 23 137/65 97 01/18/20 22:00 75 18 113/64 94 01/18/20 21:30 71 26 H 129/67 95 01/18/20 21:00 73 18 132/67 95 01/18/20 20:44 72 16 131/65 95 01/18/20 19:19 36.6 C 112 H 18 155/82 H 92 PG Care Time/CCT Total # of Minutes Spent Total Time Spent with Patient: Total time spent is greater than 50% in coordination of care (as documented) at patient's floor/unit and/or counseling patient: Coding Level of Care Code 60936 Inpt Consult Level 5 Diagnoses Abdominal pain R10.9
--- NOTE | 2020-01-19 00:09 | Emergency Department Note ---
Impression & Plan Pneumoperitoneum of unknown etiology ED Provider Note INFORMANT: Patient ED PROVIDER(S): Gregory Cuellar MD CHIEF COMPLAINT: Abdominal pain PLAN: Disposition: Admitted Condition: Good MEDICAL DECISION MAKING: Patient resents with abnormal CT scan after 5 days of abdominal pain. There is findings concerning for pneumatosis of unknown etiology. The patient had an IV established. Blood work was obtained. Her lactate was normal. Her CBC and chemistry panel are unremarkable as well as urinalysis. The patient did have an ECG performed and this showed a normal sinus rhythm. General surgery, Dr. Grover was consulted. The patient was evaluated in the ER. Conservative management and admission under internal medicine was recommended. He recommended clear liquid diet and slowly advancing. I did discuss the case with Dr. Anshul Taylor, [facility] Hospitalist service. The patient was evaluated in the ER for further management. Triage Nursing notes reviewed and agree them. Additional history obtained from patient's daughter Prior medical records reviewed regarding outpatient CT scan. Vital Signs: reviewed and remarkable for no significant abnormalities Differential diagnosis: Mesenteric ischemia, appendicitis, ovarian cyst, ovarian torsion, ectopic , TOA, PID, infections, diverticulitis, UTI, obstruction, aortic pa thology, inflammatory bowel disease, renal colic, PUD, pancreatitis, biliary pathology, hernia, volvulus, constipation, as well as other pathologies. Diagnostics interpreted by me: ECG: Twelve-lead ECG reveals normal sinus rhythm at 70 bpm. Right bundle branch block. Left ventricular hypertrophy. Normal axis. No ST elevation or depression. No PVCs or PACs. Cardiac Monitoring: Cardiac monitoring ordered by me: The patient was placed on continuous cardiac monitoring and observed. It revealed a normal sinus rhythm at 75 beats per minute without ectopy or evidence of dysrhythmia. Imaging studies: CT scan of the abdomen pelvis was reviewed and shows a parastomal hernia with omental air and pneumatosis in the small bowel. There is inflammatory change present. No venous gas was noted. Refer you to the EMR for further details. Consultation(s): General surgery, Dr. Grover Internal medicine, Dr. Anshul Taylor, [facility]ist service HPI: The patient is a 84 year old female who presents to the Emergency Room with complaints of abdominal pain. This started 5 days ago and is somewhat improved. The patient also notes the following associated symptoms, abdominal distention. The patient has found no relieving factors. Current pain is rated as 2/10. Patient noted abdominal discomfort, bloating and had normal ostomy output. She followed up with GI today for an evaluation and a CT scan was ordered. She was found to have pneumatosis and directed to the ER for further evaluation. Patient states her abdomen is actually feeling better than it was earlier in the week. Pt denies LOC, headache, fevers, chills, diaphoresis, visual changes, neck pain, chest pain, breathing difficulties, nausea, vomiting, back pain, m latrice, hematochezia, urinary symptoms, numbness, weakness, lymphadenopathy, rash, or other complaints. ROS: See above HPI for pertinent positives & negatives. A total of 10 systems reviewed and were otherwise negative. PAST MEDICAL HISTORY:See Below, hypertension, GERD PAST SURGICAL HISTORY:See Below, colostomy FAMILY HISTORY:See Below SOCIAL HISTORY:See Below, non-smoker HOME MEDICATIONS:See Below ALLERGIES:See Below VITALS:See Below PHYSICAL EXAMINATION: GENERAL: Awake, alert, well-appearing, in no distress HENT: Normocephalic, atraumatic. Oropharynx unremarkable. EYES: Normal conjunctiva. Sclera non-icteric. NECK: Inspection normal. Non-tender. Supple. No nuchal rigidity. FROM. No masses. RESPIRATORY: Clear to auscultation. No wheezes. No rales. Normal respiratory effort. CARDIAC: Normal rate. Normal rhythm. No murmurs. No rubs. Extremities warm and well perfused. Pulses equal. No JVD. GI: Soft, mildly-distended. Stoma present in the left lower quadrant appears to be functioning and normal in appearance. Minimal parastomal tenderness to palpation. No rebound or guarding. No masses. RECTAL: Deferred. MUSCULOSKELETAL: Atraumatic. Chest examination reveals no tenderness. The back is symmetrical on inspection without obvious abnormality. There is no CVA tenderness to palpation. No joint edema. LOWER EXTREMITIES: Calves are equal size bilaterally and non-tender. No edema. No discoloration. NEURO: Normal sensorium. No sensory or motor deficits noted. SKIN: No rash or jaundice noted. Gregory Cuellar MD Past Med/Surg History Medical History (Updated 01/19/20 @ 00:09 by Gregory Cuellar MD) Colostomy present Diverticulitis of colon with perforation Diverticulosis GERD (gastroesophageal reflux disease) Hiatal hernia HTN (hypertension) Hypothyroidism Surgical History History of cataract surgery History of colostomy Hx of cholecystectomy Family History Sister Breast cancer Coronary heart disease Brother Coronary heart disease Other Hypertension Social History Smoking Status: Former smoker Hx Alcohol Use: No Hx Substance Use: No Preferred Language: Slovak Communication Ability: Effective Confidential Secretary Required: No Beliefs That Will Affect Care: None marital status: / Current Living Situation: Alone How many Children do You have: 3 Feels Safe at Home: Yes Assistive Devices: Denture - Upper, Denture - Lower and Glasses Allergies Allergies Allergy/AdvReac Type Severity Reaction Status Date / Time codeine AdvReac Intermediate NAUSEA, Verified 01/18/20 13:13 VOMITING colchicine AdvReac Intermediate GI side Verified 01/18/20 13:13 effects fentanyl AdvReac Intermediate vomiting Verified 01/18/20 13:13 Home Meds Home Medications Medication Instructions Recorded Confirmed amlodipine [Norvasc] 5 mg PO QAM 05/26/19 01/18/20 famotidine [Pepcid] 40 mg PO BID 05/26/19 01/18/20 levothyroxine 100 mcg PO QAM 05/26/19 01/18/20 metoprolol tartrate [Lopressor] 100 mg PO QAM 05/26/19 01/18/20 Probiotic 0 mmu cells PO DAILY 07/18/19 01/18/20 nystatin [Nystop] 1 applic TOPICAL TID 07/18/19 01/18/20 pantoprazole [Protonix] 40 mg PO DAILY 07/23/19 01/18/20 Results & Data (ED) Vital Signs Vital Signs - 24 hr 01/18/20 19:19 01/18/20 20:44 01/18/20 21:00 Temperature 36.6 C Temperature Source Oral Pulse Rate 112 H 73 Pulse Rate [Apical] 72 Pulse Rate from SpO2 Sensor 75 Respiratory Rate 18 16 18 Respiratory Effort / Characteristics Non-Labored Respiratory Depth Normal Blood Pressure 155/82 H 132/67 Blood Pressure [Left Arm] 131/65 Blood Pressure Mean 106 98 Blood Pressure Mean [Left Arm] 87 Pulse Oximetry 92 95 95 Oxygen Delivery Method Room Air Room Air Room Air Sepsis Recent Fever Within 48 Hours No Sepsis New/Unexplained Change in Mental Status No Sepsis Action Taken by Nursing No Action Required 01/18/20 21:30 01/18/20 22:00 01/18/20 22:30 Temperature Temperature Source Pulse Rate 71 75 75 Pulse Rate [Apical] Pulse Rate from SpO2 Sensor 72 75 73 Respiratory Rate 26 H 18 23 Respiratory Effort / Characteristics Respiratory Depth Blood Pressure 129/67 113/64 137/65 Blood Pressure [Left Arm] Blood Pressure Mean 89 81 95 Blood Pressure Mean [Left Arm] Pulse Oximetry 95 94 97 Oxygen Delivery Method Room Air Room Air Sepsis Recent Fever Within 48 Hours Sepsis New/Unexplained Change in Mental Status Sepsis Action Taken by Nursing 01/18/20 23:00 01/18/20 23:30 01/19/20 00:00 Temperature Temperature Source Pulse Rate 94 H 69 65 Pulse Rate [Apical] Pulse Rate from SpO2 Sensor 92 H 69 65 Respiratory Rate 20 20 18 Respiratory Effort / Characteristics Respiratory Depth Blood Pressure 131/63 124/66 112/55 L Blood Pressure [Left Arm] Blood Pressure Mean 67 108 86 Blood Pressure Mean [Left Arm] Pulse Oximetry 96 95 92 Oxygen Delivery Method Room Air Room Air Room Air Sepsis Recent Fever Within 48 Hours Sepsis New/Unexplained Change in Mental Status Sepsis Action Taken by Nursing Laboratory Data Result diagrams: 01/18/20 20:59 01/18/20 20:59 Lab Results 01/18/20 01/18/20 01/18/20 Range/Units 20:59 20:59 22:32 WBC 8.91 (4.8-10.8) K/uL RBC 4.54 (4.2-5.4) M/uL Hgb 13.0 (12.0-16.0) g/dL Hct 39.2 (37-47) % MCV 86.3 (80-100) fL MCH 28.6 (25-34) pg MCHC 33.2 (32-36) g/dL RDW Std Deviation 46.5 H (36.4-46.3) fL RDW Coeff of [place] 14.7 H (11.5-14.5) % Plt Count 325 (130-400) K/uL MPV 10.5 H (7.4-10.4) fL Immature Gran % (Auto) 0.2 % Neut % (Auto) 68.3 % Lymph % (Auto) 21.7 % [place] % (Auto) 7.3 % Eos % (Auto) 2.1 % Baso % (Auto) 0.4 % Neut # (Auto) 6.08 (1.4-6.5) K/uL Lymph # (Auto) 1.93 (1.2-3.4) K/uL [place] # (Auto) 0.65 H (0.11-0.59) K/uL Eos # (Auto) 0.19 (0-0.5) K/uL Baso # (Auto) 0.04 (0-0.2) K/uL Immature Gran # (Auto) 0.02 (0.00-0.02) K/uL Sodium 136 (136-145) mmol/L Potassium 3.9 (3.5-5.1) mmol/L Chloride 104 (98-107) mmol/L Carbon Dioxide 26 (21-32) mmol/L Anion Gap 6.0 (3-11) BUN 12 (7-18) mg/dl Creatinine 0.85 (0.6-1.2) mg/dl Est Cr Clr Drug Dosing 43.2 ml/min Est GFR ( Amer) 73.4 Est GFR (Non-Af Amer) 63.4 BUN/Creatinine Ratio 13.8 (10-20) Glucose 124 H (70-99) mg/dl Lactate 0.9 (0.4-2.0) mmol/L Calcium 9.4 (8.5-10.1) mg/dl Magnesium 1.9 (1.8-2.4) mg/dl Total Bilirubin 0.6 (0.2-1) mg/dl AST 36 (15-37) U/L ALT 47 (12-78) U/L Alkaline Phosphatase 124 H (45-117) U/L Total Protein 7.1 (6.4-8.2) gm/dl Albumin 3.2 L (3.4-5.0) gm/dl Globulin 3.9 (2.5-4.0) gm/dl Albumin/Globulin Ratio 0.8 L (0.9-2) Lipase 128 (73-393) U/L Urine Color Urine Appearance (Clear) Urine pH (4.5-7.5) Ur Specific [place] (1.000-1.030) Urine Protein (Negative) Urine Glucose (UA) (Negative) Urine Ketones (Negative) Urine Blood (Negative) Urine Nitrite (Negative) Urine Bilirubin (Negative) Urine Urobilinogen (Negative) Ur Leukocyte Esterase (Negative) SARS-CoV-2 Ag (Rapid) (Negative) 01/18/20 01/18/20 Range/Units 22:32 Unknown WBC (4.8-10.8) K/uL RBC (4.2-5.4) M/uL Hgb (12.0-16.0) g/dL Hct (37-47) % MCV (80-100) fL MCH (25-34) pg MCHC (32-36) g/dL RDW Std Deviation (36.4-46.3) fL RDW Coeff of [place] (11.5-14.5) % Plt Count (130-400) K/uL MPV (7.4-10.4) fL Immature Gran % (Auto) % Neut % (Auto) % Lymph % (Auto) % [place] % (Auto) % Eos % (Auto) % Baso % (Auto) % Neut # (Auto) (1.4-6.5) K/uL Lymph # (Auto) (1.2-3.4) K/uL [place] # (Auto) (0.11-0.59) K/uL Eos # (Auto) (0-0.5) K/uL Baso # (Auto) (0-0.2) K/uL Immature Gran # (Auto) (0.00-0.02) K/uL Sodium (136-145) mmol/L Potassium (3.5-5.1) mmol/L Chloride (98-107) mmol/L Carbon Dioxide (21-32) mmol/L Anion Gap (3-11) BUN (7-18) mg/dl Creatinine (0.6-1.2) mg/dl Est Cr Clr Drug Dosing ml/min Est GFR ( Amer) Est GFR (Non-Af Amer) BUN/Creatinine Ratio (10-20) Glucose (70-99) mg/dl Lactate (0.4-2.0) mmol/L Calcium (8.5-10.1) mg/dl Magnesium (1.8-2.4) mg/dl Total Bilirubin (0.2-1) mg/dl AST (15-37) U/L ALT (12-78) U/L Alkaline Phosphatase (45-117) U/L Total Protein (6.4-8.2) gm/dl Albumin (3.4-5.0) gm/dl Globulin (2.5-4.0) gm/dl Albumin/Globulin Ratio (0.9-2) Lipase (73-393) U/L Urine Color Yellow Urine Appearance Clear (Clear) Urine pH 5.5 (4.5-7.5) Ur Specific [place] 1.023 (1.000-1.030) Urine Protein Negative (Negative) Urine Glucose (UA) Negative (Negative) Urine Ketones Negative (Negative) Urine Blood Negative (Negative) Urine Nitrite Negative (Negative) Urine Bilirubin Negative (Negative) Urine Urobilinogen Negative (Negative) Ur Leukocyte Esterase Negative (Negative) SARS-CoV-2 Ag (Rapid) Negative (Negative) Administered Medications Sodium Chloride (Nss 1000ml) 1,000 mls @ 125 mls/hr IV .Q8H STA Stop: 01/19/20 06:35 Last Admin: 01/18/20 23:00 Dose: 125 mls/hr Documented by: [id number] Discharge Plan Visit Data Chief Complaint: GI Assessment Stated Complaint: ABNORMAL CT ED Provider: Gregory Cuellar Discharge Problem: Pneumoperitoneum of unknown etiology Forms Stand Alone Forms: My [facility] Prescriptions Prescriptions: No Action Probiotic 3 billion cell Capsule 0 mmu cells PO DAILY RF: 0 nystatin [Nystop] 100,000 unit/gram powder 1 applic TOPICAL TID RF: 0 metoprolol tartrate [Lopressor] 100 mg tablet 100 mg PO QAM RF: 0 famotidine [Pepcid] 40 mg tablet 40 mg PO BID RF: 0 amlodipine [Norvasc] 5 mg tablet 5 mg PO QAM RF: 0 levothyroxine 100 mcg tablet 100 mcg PO QAM RF: 0 pantoprazole [Protonix] 40 mg Tablet,Delayed Release (Dr/Ec) 40 mg PO DAILY RF: 0
--- NOTE | 2020-01-19 01:06 | History & Physical Report ---
Date of Service January 19, 2020 Assessment & Plan (1) Abdominal pain: Intra-abdominal pneumatosis history complicated diverticulitis status post surgery (2018) Recurrent admissions Patient currently not toxic nor septic on presentation. hypertension, BP on the lower side secondary to hypovolemia secondary to GI illness hypothyroidism, euthyroid as of TSH from May 2019 chronic anemia, hemoglobin better than baseline likely secondary to hemoconcentration OBS Medical telemetry given low blood pressure IVF Surgery consult Re: Abnormal abd CT (ER provider already in touch with Dr. Grover. Surgery recommends clear liquid diet and holding off on antibiotics for now given benign examination.) Decrease doses of maintenance blood pressure meds for now. DVT prophylaxis. Lovenox subcu Full code Text document was generated using [employer] voice recognition software. It may contain grammatical or spelling errors. Kindly contact undersigned for clarification of any documentation item in question. History of Present Illness Chief Complaint: Abdominal pain, abnormal CT Primary Care Provider: Nahid Nicholas History obtained from patient and records. Medical history significant for hypertension, hyperlipidemia, GERD, hypothyroidism, chronic anemia (baseline hemoglobin 10-11), history complicated diverticulitis status post surgery (2018), history of C. difficile as per records. Last confinement June [address] Medical management with antibiotics. No surgical intervention. Few days history of achy central abdominal pain and increased abdominal distention without nausea and emesis. Good bowel movement. No fever, no chills. No chest pain, no S OB. Seen at [facility] specialist's office yesterday. Patient directed to ER with abnormal outpatient CT abdomen pelvis results. MEDICAL HISTORY: As above. SURGERIES: Tonsillectomy/adenoidectomy, thyroid surgery, cholecystectomy, bowel surgery/colostomy creation, cataract surgery FAMILY HISTORY: Hypertension, heart disease. PERSONAL AND SOCIAL HISTORY: Nonsmoker, no chronic intake of alcoholic beverages. 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 Allergies Allergy/AdvReac Type Severity Reaction Status Date / Time codeine AdvReac Intermediate NAUSEA, Verified 01/19/20 01:37 VOMITING colchicine AdvReac Intermediate GI side Verified 01/19/20 01:37 effects fentanyl AdvReac Intermediate vomiting Verified 01/19/20 01:37 Home Medications Medication Instructions Recorded Confirmed Type amlodipine [Norvasc] 5 mg PO QAM 05/26/19 01/19/20 History famotidine [Pepcid] 40 mg PO BID 05/26/19 01/19/20 History levothyroxine 100 mcg PO DAILYBB 05/26/19 01/19/20 History metoprolol tartrate [Lopressor] 100 mg PO HS 05/26/19 01/19/20 History Probiotic 0 mmu cells PO DAILY 07/18/19 01/19/20 History nystatin [Nystop] 1 applic TOPICAL TID PRN 07/18/19 01/19/20 History pantoprazole [Protonix] 40 mg PO DAILY 07/23/19 01/19/20 History Past Med/Surg History Medical History (Updated 01/19/20 @ 09:51 by Anshul Taylor MD) Colostomy present Diverticulitis of colon with perforation Diverticulosis GERD (gastroesophageal reflux disease) Hiatal hernia HTN (hypertension) Hypothyroidism Surgical History History of cataract surgery History of colostomy Hx of cholecystectomy Family History Sister Breast cancer Coronary heart disease Brother Coronary heart disease Other Hypertension Social History Smoking Status: Never smoker Hx Alcohol Use: No Hx Substance Use: No Preferred Language: Vietnamese Communication Ability: Effective Special Effects Person Required: No Beliefs That Will Affect Care: None marital status: / Current Living Situation: Alone How many Children do You have: 3 Feels Safe at Home: Yes Assistive Devices: None Review of Systems Review of Systems: As per HPI, all 10 systems reviewed, all other ROS negative Physical Exam Physical Exam: GENERAL: Comfortable, pleasant, no respiratory distress SKIN: Pallor , warm HEENT: Pale palpebral conjunctivae, no ptosis, dry buccal mucosa NECK : Supple, no tenderness CHEST : CTA, no tenderness HEART : RRR, no obvious murmurs ABDOMEN: Some distention, ostomy noted EXTREMITIES : No LE swelling/tenderness, no other conspicuous deformities noted NEUROLOGIC : Coherent, no facial asymmetry, no other gross focality Results & Data Results & Data ([facility]) Vital Signs (Past 12 Hours) Vital Signs Temp Pulse Pulse Resp BP BP Pulse Ox 01/19/20 00:31 85 20 116/73 96 01/19/20 00:00 65 18 112/55 L 92 01/18/20 23:30 69 20 124/66 95 01/18/20 23:00 94 H 20 131/63 96 01/18/20 22:30 75 23 137/65 97 01/18/20 22:00 75 18 113/64 94 01/18/20 21:30 71 26 H 129/67 95 01/18/20 21:00 73 18 132/67 95 01/18/20 20:44 72 16 131/65 95 01/18/20 19:19 36.6 C 112 H 18 155/82 H 92 Laboratory Results Laboratory Results WBC 8.91 K/uL (4.8-10.8) 01/18/20 20:59 RBC 4.54 M/uL (4.2-5.4) 01/18/20 20:59 Hgb 13.0 g/dL (12.0-16.0) 01/18/20 20:59 Hct 39.2 % (37-47) 01/18/20 20:59 MCV 86.3 fL (80-100) 01/18/20 20:59 MCH 28.6 pg (25-34) 01/18/20 20:59 MCHC 33.2 g/dL (32-36) 01/18/20 20:59 RDW Std Deviation 46.5 fL (36.4-46.3) H 01/18/20 20:59 RDW Coeff of [place]recia 14.7 % (11.5-14.5) H 01/18/20 20:59 Plt Count 325 K/uL (130-400) 01/18/20 20:59 MPV 10.5 fL (7.4-10.4) H 01/18/20 20:59 Immature Gran % (Auto) 0.2 % 01/18/20 20:59 Neut % (Auto) 68.3 % 01/18/20 20:59 Lymph % (Auto) 21.7 % 01/18/20 20:59 [place] % (Auto) 7.3 % 01/18/20 20:59 Eos % (Auto) 2.1 % 01/18/20 20:59 Baso % (Auto) 0.4 % 01/18/20 20:59 Neut # (Auto) 6.08 K/uL (1.4-6.5) 01/18/20 20:59 Lymph # (Auto) 1.93 K/uL (1.2-3.4) 01/18/20 20:59 [place] # (Auto) 0.65 K/uL (0.11-0.59) H 01/18/20 20:59 Eos # (Auto) 0.19 K/uL (0-0.5) 01/18/20 20:59 Baso # (Auto) 0.04 K/uL (0-0.2) 01/18/20 20:59 Immature Gran # (Auto) 0.02 K/uL (0.00-0.02) 01/18/20 20:59 Sodium 136 mmol/L (136-145) 01/18/20 20:59 Potassium 3.9 mmol/L (3.5-5.1) 01/18/20 20:59 Chloride 104 mmol/L (98-107) 01/18/20 20:59 Carbon Dioxide 26 mmol/L (21-32) 01/18/20 20:59 Anion Gap 6.0 (3-11) 01/18/20 20:59 BUN 12 mg/dl (7-18) 01/18/20 20:59 Creatinine 0.85 mg/dl (0.6-1.2) 01/18/20 20:59 Est Cr Clr Drug Dosing 43.2 ml/min 01/18/20 20:59 Est GFR ( Amer) 73.4 01/18/20 20:59 Est GFR (Non-Af Amer) 63.4 01/18/20 20:59 BUN/Creatinine Ratio 13.8 (10-20) 01/18/20 20:59 Glucose 124 mg/dl (70-99) H 01/18/20 20:59 Lactate 0.9 mmol/L (0.4-2.0) 01/18/20 22:32 Calcium 9.4 mg/dl (8.5-10.1) 01/18/20 20:59 Magnesium 1.9 mg/dl (1.8-2.4) 01/18/20 20:59 Total Bilirubin 0.6 mg/dl (0.2-1) 01/18/20 20:59 AST 36 U/L (15-37) 01/18/20 20:59 ALT 47 U/L (12-78) 11/20/20 20:59 Alkaline Phosphatase 124 U/L (45-117) H 01/18/20 20:59 Total Protein 7.1 gm/dl (6.4-8.2) 01/18/20 20:59 Albumin 3.2 gm/dl (3.4-5.0) L 01/18/20 20:59 Globulin 3.9 gm/dl (2.5-4.0) 01/18/20 20:59 Albumin/Globulin Ratio 0.8 (0.9-2) L 01/18/20 20:59 Lipase 128 U/L (73-393) 01/18/20 20:59 Urine Color Yellow 01/18/20:32 Urine Appearance Clear (Clear) 01/18/20: Urine pH 5.5 (4.5-7.5) 01/18/20: Ur Specific [place] 1.023 (1.000-1.030) 01/18/20 22:32 Urine Protein Negative (Negative) 01/18/20: Urine Glucose (UA) Negative (Negative) 01/18/20: Urine Ketones Negative (Negative) 01/18/20: Urine Blood Negative (Negative) 01/18/20:32 Urine Nitrite Negative (Negative) 01/18/20: Urine Bilirubin Negative (Negative) 01/18/20: Urine Urobilinogen Negative (Negative) 01/18/20:32 Ur Leukocyte Esterase Negative (Negative) 01/18/20 22:32 SARS-CoV-2 Ag (Rapid) Negative (Negative) 01/18/[address] abdomen pelvis: 1. There is postoperative change from left colonic resection with left lower quadrant colostomy and [place] pouch formation. 2. There are numerous tiny foci of intraperitoneal free air. 3. There are extensive foci of bubbly/multiloculated extraluminal gas seen tracking along the omentum. The majority of this is extraluminal; however, foci of pneumatosis involving the small bowel is not excluded. Additionally, there are tiny foci of mesenteric gas. No definite mesenteric venous or portal venous gas is seen. 4. There is a parastomal hernia, with inflammatory change seen in the mesenteric fat of the left mid abdomen and extending into the ostomy. 5. These findings are of indeterminant etiology and although there can be benign etiologies of pneumatosis, visceral perforation and/or bowel ischemia are the diagnoses of exclusion. Surgical consultation is advised. 6. There are numerous diverticula of the small bowel, as well as diverticulosis of the remaining colon. There is no clear evidence of acute diverticulitis; however, this is difficult to assess within the inflamed left lower quadrant mesentery. 7. No organized fluid collection is seen to suggest abscess. 8. Mildly enlarged mesenteric lymph nodes are likely on a reactive basis. 9. Hepatomegaly and hepatic steatosis. EKG as per my interpretation rate 70, NSR, LAD, LAFB, RBBB, LVH, no ischemia
[2020-01-19] MEDS ORDERED: NORMOSOL-R 500 ML IV STA (01:23)
[2020-01-19] MEDS ORDERED: PROMETHAZINE HCL 6.25 MG in SODIUM CHLORIDE 0.9% 50 ML IV PRN (01:58)
[2020-01-19] MEDS ORDERED: traMADol HCL 50 MG TABLET PO PRN (01:58)
[2020-01-19] MEDS ORDERED: KETOROLAC TROMETHAMINE 15 MG/ML VIAL IV PRN (01:58)
[2020-01-19] MEDS ORDERED: ACETAMINOPHEN 325 MG TAB PO PRN (01:58)
[2020-01-19] MEDS ORDERED: NORMOSOL-R 500 ML IV ONE (02:45)
[2020-01-19] MEDS ORDERED: LACTATED RINGER'S 1,000 ML IV ONE ×2 (03:30→04:30)
--- NOTE | 2020-01-19 06:19 | Surgery Progress Note ---
Date of Service January 19, 2020 Assessment & Plan (1) Abdominal pain: -pain has resolved -findings on outpt. CT scan may be incidental as she had a similar issue back in April of this year and did not require surgical intervention -as her exam is benign, would slowly advance diet and if tolerated can consider d/c home Admission and Anticipated Discharge Date Admission Date: January 19, 2020 Supervising Physician Co-Signing Physician Notes I personally saw and evaluated the patient with Manuel Chase PA-C and agree with the assessment and plan 84 yo female with prior Amira's, pneumoperitoneum on CT -Clinically has no signs of bowel compromise -Easily reducible parastomal hernia -Tolerating clears with ostomy function -Advance diet today and if tolerates can send home later today Subjective Pt. notes a good night--no further abdominal pain. no N/V. No fevers. Her ostomy is functioning well. She is tolerating clears. Physical Exam Respiratory: normal respiratory effort; no respiratory distress and no labored breathing Gastrointestinal (Abdomen): ostomy is pink and viable; air noted in collection bag; abdomen is soft; palpation does not cause pain Results & Data ([facility]) Vital Signs (Past 12 Hours) Vital Signs Temp Pulse Pulse Pulse Resp BP BP 01/19/20 02:57 78 01/19/20 02:04 36.6 C 70 18 127/75 01/19/20 01:30 66 19 118/55 L 01/19/20 01:01 77 17 97/82 L 01/19/20 01:00 71 15 01/19/20 00:32 79 19 01/19/20 00:31 85 20 116/73 01/19/20 00:00 65 18 112/55 L 01/18/20 23:30 69 20 124/66 01/18/20 23:00 94 H 20 131/63 01/18/20 22:30 75 23 137/65 01/18/20 22:00 75 18 113/64 01/18/20 21:30 71 26 H 129/67 01/18/20 21:00 73 18 132/67 01/18/20 20:44 72 16 131/65 01/18/20 19:19 36.6 C 112 H 18 155/82 H Pulse Ox 01/19/20 02:57 01/19/20 02:04 96 01/19/20 01:30 95 01/19/20 01:01 96 01/19/20 01:00 97 01/19/20 00:32 96 01/19/20 00:31 96 01/19/20 00:00 92 01/18/20 23:30 95 01/18/20 23:00 96 01/18/20 22:30 97 01/18/20 22:00 94 01/18/20 21:30 95 01/18/20 21:00 95 01/18/20 20:44 95 01/18/20 19:19 92 PG Care Time/CCT Total # of Minutes Spent Total Time Spent with Patient: Total time spent is greater than 50% in coordination of care (as documented) at patient's floor/unit and/or counseling patient: Coding Level of Care Code 06522 Subseq Hosp Care Lvl 1 Diagnoses Abdominal pain R10.9
[2020-01-19] MEDS ORDERED: LEVOTHYROXINE SODIUM 100 MCG TABLET PO SCH (06:30)
[2020-01-19 08:41] LABS: Basophils # (auto) 0.03 K/uL (0-0.2); Basophils % (auto) 0.5 %; Eosinophils # (auto) 0.17 K/uL (0-0.5); Eosinophils % (auto) 2.7 %; Hematocrit (blood only) 35.5 % (37-47); Hemoglobin 11.7 g/dL (12.0-16.0); Immature Granulocytes # (auto) 0.01 K/uL (0.00-0.02); Immature Granulocytes % (auto) 0.2 %; Lymphocytes # (auto) 1.51 K/uL (1.2-3.4); Lymphocytes % (auto) 23.8 %; Mean Corpuscular Hemoglobin 28.6 pg (25-34); Mean Corpuscular Volume 86.8 fL (80-100); Mean Platelet Volume 10.4 fL (7.4-10.4); Monocytes # (auto) 0.48 K/uL (0.11-0.59); Monocytes % (auto) 7.6 %; Neutrophils # (auto) 4.14 K/uL (1.4-6.5); Neutrophils % (auto) 65.2 %; Platelet Count 299 K/uL (130-400); RDW Coefficient of Variation 14.9 % (11.5-14.5); RDW Standard Deviation 46.8 fL (36.4-46.3); Red Blood Count 4.09 M/uL (4.2-5.4); White Blood Count 6.34 K/uL (4.8-10.8)
[2020-01-19] MEDS ORDERED: METOPROLOL TARTRATE 25 MG TAB PO SCH (09:00)
[2020-01-19] MEDS ORDERED: amLODIPine BESYLATE 5 MG TAB PO SCH (09:00)
[2020-01-19] MEDS ORDERED: FAMOTIDINE 40 MG TABLET PO SCH (09:00)
[2020-01-19] MEDS ORDERED: ENOXAPARIN INJ 30 MG/0.3 ML SYR SQ SCH (09:00)
[2020-01-19] MEDS ORDERED: PANTOprazole 40 MG TAB PO SCH (09:00)
[2020-01-19] MEDS ORDERED: METOPROLOL TARTRATE 100 MG TAB PO SCH (09:00)
[2020-01-19 09:07] LABS: Calcium 9.1 mg/dl (8.5-10.1); Creatinine Clr Calc Pharmacy 48.2 ml/min; Est GFR (African American) 85.4; Est GFR (Non-African American) 73.7; Potassium 4.1 mmol/L (3.5-5.1)
--- NOTE | 2020-01-19 16:35 | Discharge Summary ---
Date of Service January 19, 2020 Admission HPI Per Admitting Provider History obtained from patient and records. Medical history significant for hypertension, hyperlipidemia, GERD, hypothyroidism, chronic anemia (baseline hemoglobin 10-11), history complicated diverticulitis status post surgery (2018), history of C. difficile as per records. Last confinement June [address] Medical management with antibiotics. No surgical intervention. Few days history of achy central abdominal pain and increased abdominal distention without nausea and emesis. Good bowel movement. No fever, no chills. No chest pain, no S OB. Seen at [facility] specialist's office yesterday. Patient directed to ER with abnormal outpatient CT abdomen pelvis results. MEDICAL HISTORY: As above. SURGERIES: Tonsillectomy/adenoidectomy, thyroid surgery, cholecystectomy, bowel surgery/colostomy creation, cataract surgery FAMILY HISTORY: Hypertension, heart disease. PERSONAL AND SOCIAL HISTORY: Nonsmoker, no chronic intake of alcoholic beverages. 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 Admission Exam Per Admitting Provider GENERAL: Comfortable, pleasant, no respiratory distress SKIN: Pallor , warm HEENT: Pale palpebral conjunctivae, no ptosis, dry buccal mucosa NECK : Supple, no tenderness CHEST : CTA, no tenderness HEART : RRR, no obvious murmurs ABDOMEN: Some distention, ostomy noted EXTREMITIES : No LE swelling/tenderness, no other conspicuous deformities noted NEUROLOGIC : Coherent, no facial asymmetry, no other gross focality Principal Diagnosis Abdominal pain Discharge Exam CONSTITUTIONAL: WNWD, vitals as above, generally well-appearing EYES: normal conjunctivae, no scleral icterus ENT: external ear and nose normal, oropharynx clear, MMM RESPIRATORY: clear to auscultation bilaterally, no crackles, rales or wheezes, normal respiratory effort CARDIOVASCULAR: regular rate and rhythm, S1 and 2 heard without murmurs, gallops or rubs, no JVD, no peripheral edema GASTROINTESTINAL: soft, nontender, no guarding, nondistended, colostomy in place with small pink stoma and formed stool in the bag. MUSCULOSKELETAL: strength 5/5 throughout, head is normocephalic and atraumatic, no gross focal deficits. SKIN: warm and dry NEUROLOGIC: No facial palsy, no dysarthria. CN 2-12 grossly intact, normal cognition, normal speech, no tremor. No gross focal deficits. PSYCHIATRIC: alert cooperative and oriented to person, place and time. Discharge Data Allergies Allergy/AdvReac Type Severity Reaction Status Date / Time codeine AdvReac Intermediate NAUSEA, Verified 01/19/20 01:37 VOMITING colchicine AdvReac Intermediate GI side Verified 01/19/20 01:37 effects fentanyl AdvReac Intermediate vomiting Verified 01/19/20 01:37 Consultations 01/18/20 23:08 ED Decision to Admit Stat Ordered Studies Short CBC 01/18/20 01/18/20 01/18/20 Range/Units 20:59 20:59 22:32 WBC 8.91 (4.8-10.8) K/uL RBC 4.54 (4.2-5.4) M/uL Hgb 13.0 (12.0-16.0) g/dL Hct 39.2 (37-47) % MCV 86.3 (80-100) fL MCH 28.6 (25-34) pg MCHC 33.2 (32-36) g/dL RDW Std Deviation 46.5 H (36.4-46.3) fL RDW Coeff of Grecia 14.7 H (11.5-14.5) % Plt Count 325 (130-400) K/uL MPV 10.5 H (7.4-10.4) fL Immature Gran % (Auto) 0.2 % Neut % (Auto) 68.3 % Lymph % (Auto) 21.7 % Clare % (Auto) 7.3 % Eos % (Auto) 2.1 % Baso % (Auto) 0.4 % Neut # (Auto) 6.08 (1.4-6.5) K/uL Lymph # (Auto) 1.93 (1.2-3.4) K/uL Clare # (Auto) 0.65 H (0.11-0.59) K/uL Eos # (Auto) 0.19 (0-0.5) K/uL Baso # (Auto) 0.04 (0-0.2) K/uL Immature Gran # (Auto) 0.02 (0.00-0.02) K/uL Sodium 136 (136-145) mmol/L Potassium 3.9 (3.5-5.1) mmol/L Chloride 104 (98-107) mmol/L Carbon Dioxide 26 (21-32) mmol/L Anion Gap 6.0 (3-11) BUN 12 (7-18) mg/dl Creatinine 0.85 (0.6-1.2) mg/dl Est Cr Clr Drug Dosing 43.2 ml/min Est GFR ( Amer) 73.4 Est GFR (Non-Af Amer) 63.4 BUN/Creatinine Ratio 13.8 (10-20) Glucose 124 H (70-99) mg/dl Lactate 0.9 (0.4-2.0) mmol/L Calcium 9.4 (8.5-10.1) mg/dl Magnesium 1.9 (1.8-2.4) mg/dl Total Bilirubin 0.6 (0.2-1) mg/dl AST 36 (15-37) U/L ALT 47 (12-78) U/L Alkaline Phosphatase 124 H (45-117) U/L Total Protein 7.1 (6.4-8.2) gm/dl Albumin 3.2 L (3.4-5.0) gm/dl Globulin 3.9 (2.5-4.0) gm/dl Albumin/Globulin Ratio 0.8 L (0.9-2) Lipase 128 (73-393) U/L Urine Color Urine Appearance (Clear) Urine pH (4.5-7.5) Ur Specific [place] (1.000-1.030) Urine Protein (Negative) Urine Glucose (UA) (Negative) Urine Ketones (Negative) Urine Blood (Negative) Urine Nitrite (Negative) Urine Bilirubin (Negative) Urine Urobilinogen (Negative) Ur Leukocyte Esterase (Negative) SARS-CoV-2 Ag (Rapid) (Negative) 01/18/20 01/18/20 01/19/20 Range/Units 22:32 Unknown 08:07 WBC 6.34 (4.8-10.8) K/uL RBC 4.09 L (4.2-5.4) M/uL Hgb 11.7 L (12.0-16.0) g/dL Hct 35.5 L (37-47) % MCV 86.8 (80-100) fL MCH 28.6 (25-34) pg MCHC 33.0 (32-36) g/dL RDW Std Deviation 46.8 H (36.4-46.3) fL RDW Coeff of Grecia 14.9 H (11.5-14.5) % Plt Count 299 (130-400) K/uL MPV 10.4 (7.4-10.4) fL Immature Gran % (Auto) 0.2 % Neut % (Auto) 65.2 % Lymph % (Auto) 23.8 % Clare % (Auto) 7.6 % Eos % (Auto) 2.7 % Baso % (Auto) 0.5 % Neut # (Auto) 4.14 (1.4-6.5) K/uL Lymph # (Auto) 1.51 (1.2-3.4) K/uL Clare # (Auto) 0.48 (0.11-0.59) K/uL Eos # (Auto) 0.17 (0-0.5) K/uL Baso # (Auto) 0.03 (0-0.2) K/uL Immature Gran # (Auto) 0.01 (0.00-0.02) K/uL Sodium (136-145) mmol/L Potassium (3.5-5.1) mmol/L Chloride (98-107) mmol/L Carbon Dioxide (21-32) mmol/L Anion Gap (3-11) BUN (7-18) mg/dl Creatinine (0.6-1.2) mg/dl Est Cr Clr Drug Dosing ml/min Est GFR ( Amer) Est GFR (Non-Af Amer) BUN/Creatinine Ratio (10-20) Glucose (70-99) mg/dl Lactate (0.4-2.0) mmol/L Calcium (8.5-10.1) mg/dl Magnesium (1.8-2.4) mg/dl Total Bilirubin (0.2-1) mg/dl AST (15-37) U/L ALT (12-78) U/L Alkaline Phosphatase (45-117) U/L Total Protein (6.4-8.2) gm/dl Albumin (3.4-5.0) gm/dl Globulin (2.5-4.0) gm/dl Albumin/Globulin Ratio (0.9-2) Lipase (73-393) U/L Urine Color Yellow Urine Appearance Clear (Clear) Urine pH 5.5 (4.5-7.5) Ur Specific [place] 1.023 (1.000-1.030) Urine Protein Negative (Negative) Urine Glucose (UA) Negative (Negative) Urine Ketones Negative (Negative) Urine Blood Negative (Negative) Urine Nitrite Negative (Negative) Urine Bilirubin Negative (Negative) Urine Urobilinogen Negative (Negative) Ur Leukocyte Esterase Negative (Negative) SARS-CoV-2 Ag (Rapid) Negative (Negative) 01/19/20 Range/Units 08:07 WBC (4.8-10.8) K/uL RBC (4.2-5.4) M/uL Hgb (12.0-16.0) g/dL Hct (37-47) % MCV (80-100) fL MCH (25-34) pg MCHC (32-36) g/dL RDW Std Deviation (36.4-46.3) fL RDW Coeff of Grecia (11.5-14.5) % Plt Count (130-400) K/uL MPV (7.4-10.4) fL Immature Gran % (Auto) % Neut % (Auto) % Lymph % (Auto) % Clare % (Auto) % Eos % (Auto) % Baso % (Auto) % Neut # (Auto) (1.4-6.5) K/uL Lymph # (Auto) (1.2-3.4) K/uL Clare # (Auto) (0.11-0.59) K/uL Eos # (Auto) (0-0.5) K/uL Baso # (Auto) (0-0.2) K/uL Immature Gran # (Auto) (0.00-0.02) K/uL Sodium 139 (136-145) mmol/L Potassium 4.1 (3.5-5.1) mmol/L Chloride 106 (98-107) mmol/L Carbon Dioxide 29 (21-32) mmol/L Anion Gap 4.0 (3-11) BUN 8 (7-18) mg/dl Creatinine 0.75 (0.6-1.2) mg/dl Est Cr Clr Drug Dosing 48.2 ml/min Est GFR ( Amer) 85.4 Est GFR (Non-Af Amer) 73.7 BUN/Creatinine Ratio 11.0 (10-20) Glucose 104 H (70-99) mg/dl Lactate (0.4-2.0) mmol/L Calcium 9.1 (8.5-10.1) mg/dl Magnesium (1.8-2.4) mg/dl Total Bilirubin (0.2-1) mg/dl AST (15-37) U/L ALT (12-78) U/L Alkaline Phosphatase (45-117) U/L Total Protein (6.4-8.2) gm/dl Albumin (3.4-5.0) gm/dl Globulin (2.5-4.0) gm/dl Albumin/Globulin Ratio (0.9-2) Lipase (73-393) U/L Urine Color Urine Appearance (Clear) Urine pH (4.5-7.5) Ur Specific [place] (1.000-1.030) Urine Protein (Negative) Urine Glucose (UA) (Negative) Urine Ketones (Negative) Urine Blood (Negative) Urine Nitrite (Negative) Urine Bilirubin (Negative) Urine Urobilinogen (Negative) Ur Leukocyte Esterase (Negative) SARS-CoV-2 Ag (Rapid) (Negative) BMP 01/18/20 01/19/20 20:59 08:07 Sodium 136 139 Potassium 3.9 4.1 Chloride 104 106 Carbon Dioxide 26 29 BUN 12 8 Creatinine 0.85 0.75 Glucose 124 H 104 H Calcium 9.4 9.1 Liver Function 01/18/20 Range/Units 20:59 Total Bilirubin 0.6 (0.2-1) mg/dl AST 36 (15-37) U/L ALT 47 (12-78) U/L Alkaline Phosphatase 124 H (45-117) U/L Albumin 3.2 L (3.4-5.0) gm/dl Urine 01/18/20 Range/Units 22:32 Urine Color Yellow Urine Appearance Clear (Clear) Urine pH 5.5 (4.5-7.5) Ur Specific [place] 1.023 (1.000-1.030) Urine Protein Negative (Negative) Urine Glucose (UA) Negative (Negative) [facility], [phone] CT Scan Report Patient: HECTOR MILIAN Date: 01/18/20MR#: [id number]: [id number] RDAcct ID:[id number]: Date: 1935[facility] Zip: [place] [id number]: [id number]: CTSex: FRoom/Bed:Att Phy: Eve Guajardoagnosis: ABD PAIN,HX OF DIVERTICULITISPri Phy: Nahid Nicholas M.D.Service Date: 01/18/20Fa Phy:Interpreting Phy: Remigio Lux MDAdmit Phy: Ordering Phy: Eve Guajardo PA-C cc: ~ CT SCAN OF THE ABDOMEN AND PELVIS WITH IV CONTRAST CLINICAL HISTORY: Generalized abdominal pain. COMPARISON STUDY: Abdominal CT dated 07/23/2019. TECHNIQUE: Following the IV administration of 93 cc of Optiray 320, CT scan of the abdomen and pelvis is performed from the lung bases to the proximal femora. Images are reviewed in the axial, sagittal, and coronal planes. IV contrast was administered without complication. Oral contrast was utilized. A dose lowering technique was utilized adhering to the principles of ALARA. CT DOSE: 432.63 mGy.cm FINDINGS: Lung bases: The heart is normal in size and without pericardial effusion. There are coronary artery calcifications. A small hiatal hernia is observed. The lung bases are clear noting bibasilar scarring/atelectasis. Liver: The contrast-enhanced liver is enlarged, measuring 21.4 cm in length. The liver demonstrates diffusely diminished attenuation consistent with hepatic stea tosis. There is mild intrahepatic biliary ductal dilatation. The hepatic veins and portal veins are patent. A 1.5 cm cyst is noted in the right lobe. Gallbladder: Unremarkable. Spleen: Normal in size and attenuation. Pancreas: Moderately atrophic and grossly unremarkable. Adrenal glands: Unremarkable. Kidneys: The contrast enhanced kidneys demonstrate cortical atrophy and are without hydronephrosis. The kidneys enhance symmetrically. Abdominal vasculature: The abdominal aorta is normal in course and caliber noting moderate atherosclerotic calcification. The superior mesenteric artery and the celiac artery are widely patent. Bowel: There is postoperative change from left colonic resection with left lower quadrant colostomy and Contreras pouch formation. A parastomal hernia contains non obstructed loops of small bowel and colon. No bowel obstruction is identified. Enteric contrast reaches the ostomy. There is inflammatory change identified within the mesenteric fat contained in the ostomy. No focally thick walled bowel loops are identified. No portal venous gas is seen. There are numerous small bowel diverticula. There is also mild diverticulosis of the remaining colon. The appendix is well-visualized and normal. Peritoneum: A midline surgical scar is noted. There are numerous small foci of intraperitoneal free air. Additionally, there is extensive bubbly locules of extraluminal gas tracking along the mentum. Some of this may represent pneumatosis intestinalis of the small bowel, and there are numerous tiny foci of gas tracking along the mesentery. No definite mesenteric venous gas is seen. Gas extends into a fat-containing umbilical hernia. Lymphadenopathy: Mildly enlarged mesenteric lymph nodes in the left mid abdomen measure up to 1.6 cm in length. Pelvic viscera: The bladder is decompressed and grossly unremarkable. The uterus and adnexa are normal as visualized. Skeletal structures: The skeletal structures are osteopenic. There is moderate to advanced lumbosacral spondylosis. No lytic or blastic lesions are seen. IMPRESSION: 1. There is postoperative change from left colonic resection with left lower quadrant colostomy and Contreras pouch formation. 2. There are numerous tiny foci of intraperitoneal free air. 3. There are extensive foci of bubbly/multiloculated extraluminal gas seen tracking along the omentum. The majority of this is extraluminal; however, foci of pneumatosis involving the small bowel is not excluded. Additionally, there are tiny foci of mesenteric gas. No definite mesenteric venous or portal venous gas is seen. 4. There is a parastomal hernia, with inflammatory change seen in the mesenteric fat of the left mid abdomen and extending into the ostomy. 5. These findings are of indeterminant etiology and although there can be benign etiologies of pneumatosis, visceral perforation and/or bowel ischemia are the diagnoses of exclusion. Surgical consultation is advised. 6. There are numerous diverticula of the small bowel, as well as diverticulosis of the remaining colon. There is no clear evidence of acute diverticulitis; however, this is difficult to assess within the inflamed left lower quadrant mesentery. 7. No organized fluid collection is seen to suggest abscess. 8. Mildly enlarged mesenteric lymph nodes are likely on a reactive basis. 9. Hepatomegaly and hepatic steatosis. 10. Additional findings as above. ACT 112: Negative or not required by law. Electronically signed by: Remigio Lux M.D. 01/18/2020 6:04 PM Dictated: 01/18/201744Transcribed: 01/18/201749 Hospital Course (1) Abdominal pain: The patient is an 84-year-old female status post Contreras's pouch 18 months ago who presented with abdominal pain. CT of the abdomen pelvis revealed scattered pneumoperitoneum. This pneumoperitoneum finding was similar to a CT scan back in June 2019 and there were no signs of bowel compromise. On work-up there wears no evidence of leukocytosis and colostomy is functioning without nausea or vomiting. General surgery was consulted and plan for no surgical intervention with clear liquid diet to be advanced as tolerated. She was notably afebrile overnight and hemodynamically stable. Her diet was advanced to solid food in the morning and her abdominal pain resolved. It was uncertain the cause, however, pneumoperitoneum or other surgical urgency was not the etiology. She was discharged in stable condition with close primary care follow-up recommended. Total Time Total Time Spent Total Time Spent (In Minutes): 30 Total Time Includes: Examination of the Patient, Discharge Planning, Medication Reconciliation and Communication With Other Providers Discharge Plan Discharge Items Patient Disposition: Home - Self-Care Reason For Visit: ABD PAIN Discharge Diagnosis: Abdominal pain Condition on Discharge: Good Activity: Resume your previous activity Non-emergency contact: Primary Care Provider Call non-emergency contact if: you have any medication questions, your symptoms worsen, your pain is not controlled, your pain is worsening, your pain is unusual for you, your pain is concerning for you and you have a fever Follow-up/Referrals: Nahid Nicholas [Primary Care Provider] - Diet: Regular Addtl Attending Provider Instructions: It is recommended that you follow-up with your primary care physician wtihin the next couple of weeks to touch base and ensure you are still doing well after discharge to home. It was a pleasure taking care of you! Please call if you have any questions or problems. You can reach a [facility] hospitalist on duty at [facility] 24 hours a day by calling [phone]. Take care of yourself. Tsering Haile, [employer] [facility] Hospitalist Pending Studies at Discharge: No Stand-Alone Forms: My [facility] Medications and DC Order Prescriptions: Continued Probiotic 3 billion cell Capsule 0 mmu cells PO DAILY RF: 0 nystatin [Nystop] 100,000 unit/gram powder 1 applic TOPICAL TID PRN (Reason: DIRECTED) RF: 0 metoprolol tartrate [Lopressor] 100 mg tablet 100 mg PO HS RF: 0 famotidine [Pepcid] 40 mg tablet 40 mg PO BID RF: 0 amlodipine [Norvasc] 5 mg tablet 5 mg PO QAM RF: 0 levothyroxine 100 mcg tablet 100 mcg PO DAILYBB RF: 0 pantoprazole [Protonix] 40 mg Tablet,Delayed Release (Dr/Ec) 40 mg PO DAILY RF: 0 Discharge Orders: Discharge Order (Routine); Ordered 01/19/20 Ordered By: Tsering Haile Admission Data Admit Date/Time: 01/19/20 01:14 Attending Provider: Tsering Haile Admit Provider: Anshul Taylor Primary Care Provider: Nahid Nicholas Other Providers: Anshul Taylor Other Interventions: Discharge Summary Assessment (RN) Last Done: 01/19/20 17:20
--- NOTE | 2020-01-20 06:23 | Electrocardiogram Report ---
Test Reason : Blood Pressure : / mmHG Vent. Rate : 070 BPM Atrial Rate : 070 BPM P-R Int : 188 ms QRS Dur : 126 ms QT Int : 422 ms P-R-T Axes : 035 -12 014 degrees QTc Int : 455 ms Normal sinus rhythm Right bundle branch block Minimal voltage criteria for LVH, may be normal variant Abnormal ECG When compared with ECG of 23-JUL-2019 16:00, No significant change was found Confirmed by Lawrence Pinto ([id number]) on 01/20/2020 6:23:24 AM Referred By: Antione Case Confirmed By:Lawrence Pinto
== END 2020-01-19 17:40 | disposition home or self-care (01) ==
LOC: 2W 18:46 → ED 18:46 → 2W 01-19 01:45

== ENCOUNTER 2020-07-22 21:49 | Inpatient (IN) ==
[2020-07-22] MEDS ORDERED: ACETAMINOPHEN 325 MG TAB PO STA (22:42)
[2020-07-23] MEDS ORDERED: HYDROmorphone INJ 0.5 MG/0.5 ML SYR IV STA (00:04)
[2020-07-23] MEDS ORDERED: ONDANSETRON INJ 2 MG/ML 2 ML VIAL IV STA (00:04)
[2020-07-23] MEDS ORDERED: SODIUM CHLORIDE 0.9% 500 ML IV SCH (00:15)
--- NOTE | 2020-07-23 00:42 | Emergency Department Note ---
Impression & Plan Closed fracture of right proximal humerus, Fall ED Provider Note NAME: HECTOR MILIAN AGE: 85 SEX: F : 1935 ARRIVES VIA: Ambulance INFORMANT: Patient, EMS, daughter ED PROVIDER(S): Marino Cespedes MD CHIEF COMPLAINT: fall HPI: This is an 85-year-old female who presents emergency department after a f all off a porch. The patient reports she went down the wrong side of the stairs without the railing and landed on her left shoulder. She is complaining of left shoulder pain. The patient reports she is unable to move the right shoulder and right arm. She describes the pain as an aching sensation made worse with movement. She describes no radiation. She reports nothing makes the pain better. She received Tylenol for the pain which did not improve the pain. She does not believe she hurt her head or her neck. ROS: See above HPI for pertinent positives & negatives. A total of 10 systems r eviewed and were otherwise negative. PAST MEDICAL HISTORY: See Below PAST SURGICAL HISTORY: See Below FAMILY HISTORY: See Below SOCIAL HISTORY: See Below HOME MEDICATIONS: See Below ALLERGIES: See Below VITALS: See Below PHYSICAL EXAMINATION: VITAL SIGNS - Vital signs and nursing notes were reviewed. GENERAL - 85-year-old female appearing stated age who is in moderate distress. Communicates well with provider and answers questions appropriately. SKIN - Without rashes. HEAD - NC/AT. EYES - PERRL with EOMI bilaterally. Sclera anicteric. Palpebral conjunctiva pink and moist with no injection noted. EARS - No deformities of external structures noted on gross examination bilaterally. NOSE - Midline and without cyanosis. No epistaxis or purulent drainage noted. Septum midline without deviation or septal hematoma noted. MOUTH/OROPHARYNX - Without perioral cyanosis. Buccal mucosa pink and moist and without leukoplakia. Tongue midline with equal elevation of palate bilaterally. No tonsillar hypertrophy, erythema, or exudates noted. NECK - Neck with FROM. Supple to palpation. No nuchal rigidity. LUNGS - Chest wall symmetric without accessory muscle use, intercostals retractions, or central cyanosis. Normal vesicular breath sounds CTA B/L. No wheezes, rales, or rhonchi appreciated. CARDIAC - RRR with S1/S2. No murmur, rubs, or gallops appreciated. ABDOMEN - Abdominal contour without pulsations or visible masses. BS normoactive all four quadrants. No tenderness, palpable masses, hepatosplenomegaly, or ascites noted. EXTREMITIES - No clubbing or peripheral cyanosis. No pretibial edema present. +3/5 radial, posterior tibial, and dorsalis pedis pulses palpated throughout. +5/5 strength noted in UE/LE bilaterally. Pt has obvious deformity to rt shoulder NEUROLOGIC - Cranial nerves II through XII grossly intact. Sensory intact to light touch throughout. Patellar reflexes +2/4. PSYCH - A&Ox3 and cooperates fully with examiner. Pt is very pleasant and interacts well with examiner. MEDICAL DECISION MAKING: Patient was seen and evaluated as above in room C5. Review was performed of nursing notes and vital signs. I did review pertinent previous visits and patient history. After obtaining a thorough history and physical examination the above work up was performed. This is an 85-year-old female who presents emergency department complaining of right shoulder pain. Using shared medical decision making an IV was established, the patient was given Dilaudid for her pain. X-rays show a right humerus fracture. I did discuss the case with the orthopedic surgeon on-call for the patient's group this evening. He is requesting a CAT scan of the shoulder as well as admission to the hospitalist service. Patient and daughter are in agreement with the treatment plan. An order was placed for continuous cardiac monitoring. The monitor shows a rate of 71 with Normal Sinus rhythm. The patient was evaluated during a period of high volume and high acuity during the global COVID-19 pandemic, and that diagnosis was suspected/considered upon their initial presentation. Their evaluation, treatment and testing was consistent with current guidelines for patients who present with complaints or symptoms that may be related to COVID-19. Patient was seen while provider was wearing PPE. Triage Nursing notes reviewed. Prior medical records reviewed Vital Signs: reviewed and remarkable for no significant abnormalities Differential diagnosis: Fracture, dislocation, contusion, intra-abdominal, pneumothorax, intrathoracic, intracranial, neurologic, compartment syndrome, rhabdomyolysis, as well as other pathologies. ER treatment provided: See below Diagnostics interpreted by me: ECG: EKG shows a sinus rhythm with occasional PVC right bundle branch block when compared with EKG of 01/18/2020 PVCs are now present. QTC is 473 ventricular rate is 77 Laboratory studies: As stated above and show below. Imaging studies: A 3 view of the shoulder was interpreted by me is concerning for humeral head dislocation as well as fracture A 2 view of the humerus was interpreted by me is concerning for humeral head dis location and fracture A 3 view of the foot was interpreted by me does not show any evidence of fract ure dislocation or subluxation. CT C-spine: Osteopenia and degenerative changes. No acute fracture or subluxation. CT of the head: No ICH mass-effect or edema. Involutional and chronic small vessel ischemic changes. No skull fracture. Sinus and mastoid air cells are clear. Consultation(s): Orthopaedic surgery asked for admission to medicine, consult ortho team in morning, CT of shoulder Past Med/Surg History Medical History (Updated 07/26/20 @ 03:17 by Marino Cespedes MD) Colostomy present Diverticulitis of colon with perforation Diverticulosis GERD (gastroesophageal reflux disease) Hiatal hernia HTN (hypertension) Hypothyroidism Surgical History History of cataract surgery History of colostomy Hx of cholecystectomy Family History Sister Breast cancer Coronary heart disease Brother Coronary heart disease Other Hypertension Social History Smoking Status: Never smoker Hx Alcohol Use: No Hx Substance Use: No Preferred Language: Tajik Communication Ability: Effective Airplane Flight Attendant Required: No Beliefs That Will Affect Care: None marital status: / Current Living Situation: Alone How many Children do You have: 3 Other Information That Helps Us Care for You: No Feels Safe at Home: Yes Safety Concerns: Feels Safe At This Time Assistive Devices: Walker Allergies Allergies Allergy/AdvReac Type Severity Reaction Status Date / Time codeine AdvReac Intermediate NAUSEA, Verified 07/23/20 02:07 VOMITING colchicine AdvReac Intermediate GI side Verified 07/23/20 02:07 effects fentanyl AdvReac Intermediate vomiting Verified 07/23/20 02:07 Home Meds Home Medications Medication Instructions Recorded Confirmed famotidine [Pepcid] 40 mg PO BID 05/26/19 07/23/20 levothyroxine 100 mcg PO DAILYBB 05/26/19 07/23/20 metoprolol tartrate [Lopressor] 100 mg PO HS 05/26/19 07/23/20 nystatin [Nystop] 1 applic TOPICAL TID PRN 07/18/19 07/23/20 pantoprazole [Protonix] 40 mg PO DAILY 07/23/19 07/23/20 amlodipine 10 mg PO DAILY 07/23/20 07/23/20 calcitriol 0.25 mcg PO Q OTHER DAY 07/23/20 07/23/20 Results & Data (ED) Vital Signs Vital Signs - 24 hr 07/22/20 21:59 07/23/20 00:43 07/23/20 00:45 Temperature 36.7 C Temperature Source Oral Pulse Rate 71 Pulse Rate [Apical] 65 Pulse Rhythm [Apical] Regular Pulse Strength [Apical] Normal Respiratory Rate 18 18 Respiratory Effort / Characteristics Non-Labored Spontaneous Respiratory Depth Normal Normal Respiratory Pattern Regular Blood Pressure 135/62 Blood Pressure [Left Arm] 137/55 L Blood Pressure Mean 86 Blood Pressure Mean [Left Arm] 82 Blood Pressure Position [Left Arm] Sitting Pulse Oximetry 97 94 96 Oxygen Delivery Method Room Air Nasal Cannula Nasal Cannula Oxygen Flow Rate 3 2 Sepsis Recent Fever Within 48 Hours No Sepsis New/Unexplained Change in Mental Status N/A Sepsis Action Taken by Nursing No Action Required 07/23/20 02:05 Temperature Temperature Source Pulse Rate Pulse Rate [Apical] 65 Pulse Rhythm [Apical] Regular Pulse Strength [Apical] Normal Respiratory Rate 18 Respiratory Effort / Characteristics Non-Labored Spontaneous Respiratory Depth Normal Respiratory Pattern Regular Blood Pressure Blood Pressure [Left Arm] 139/56 L Blood Pressure Mean Blood Pressure Mean [Left Arm] 83 Blood Pressure Position [Left Arm] Lying Pulse Oximetry 98 Oxygen Delivery Method Nasal Cannula Oxygen Flow Rate 2 Sepsis Recent Fever Within 48 Hours Sepsis New/Unexplained Change in Mental Status Sepsis Action Taken by Nursing Laboratory Data Result diagrams: 07/25/20 06:12 07/25/20 06:12 Lab Results 07/23/20 07/23/20 07/23/20 Range/Units 00:39 00:39 00:39 WBC 12.03 H (4.8-10.8) K/uL RBC 4.14 L (4.2-5.4) M/uL Hgb 12.6 (12.0-16.0) g/dL Hct 36.9 L (37-47) % MCV 89.1 (80-100) fL MCH 30.4 (25-34) pg MCHC 34.1 (32-36) g/dL RDW Std Deviation 46.3 (36.4-46.3) fL RDW Coeff of [place] 14.2 (11.5-14.5) % Plt Count 265 (130-400) K/uL MPV 11.0 H (7.4-10.4) fL Immature Gran % (Auto) 0.2 % Neut % (Auto) 86.5 % Lymph % (Auto) 7.7 % [place] % (Auto) 5.2 % Eos % (Auto) 0.2 % Baso % (Auto) 0.2 % Neut # (Auto) 10.41 H (1.4-6.5) K/uL Lymph # (Auto) 0.93 L (1.2-3.4) K/uL [place] # (Auto) 0.62 H (0.11-0.59) K/uL Eos # (Auto) 0.02 (0-0.5) K/uL Baso # (Auto) 0.02 (0-0.2) K/uL Immature Gran # (Auto) 0.03 H (0.00-0.02) K/uL Sodium 134 L (136-145) mmol/L Potassium 4.0 (3.5-5.1) mmol/L Chloride 104 (98-107) mmol/L Carbon Dioxide 25 (21-32) mmol/L Anion Gap 5.0 (3-11) BUN 16 (7-18) mg/dl Creatinine 0.72 (0.6-1.2) mg/dl Est Cr Clr Drug Dosing 51.9 ml/min Est GFR ( Amer) 89.1 ml/min Est GFR (Non-Af Amer) 76.9 ml/min BUN/Creatinine Ratio 21.5 H (10-20) Glucose 171 H (70-99) mg/dl Estimat Average Glucose 123 mg/dl Hemoglobin A1c 5.9 H (4.5-5.6) % Calcium 8.6 (8.5-10.1) mg/dl Total Bilirubin 0.5 (0.2-1) mg/dl AST 68 H (15-37) U/L ALT 71 (12-78) U/L Alkaline Phosphatase 118 H (45-117) U/L Total Protein 6.7 (6.4-8.2) gm/dl Albumin 3.1 L (3.4-5.0) gm/dl Globulin 3.6 (2.5-4.0) gm/dl Albumin/Globulin Ratio 0.9 (0.9-2) COVID-19 Eval Order SARS-CoV-2 (PCR) (Negative) 07/23/20 07/23/20 07/23/20 Range/Units 00:50 00:50 06:23 WBC (4.8-10.8) K/uL RBC (4.2-5.4) M/uL Hgb (12.0-16.0) g/dL Hct (37-47) % MCV (80-100) fL MCH (25-34) pg MCHC (32-36) g/dL RDW Std Deviation (36.4-46.3) fL RDW Coeff of [place] (11.5-14.5) % Plt Count (130-400) K/uL MPV (7.4-10.4) fL Immature Gran % (Auto) % Neut % (Auto) % Lymph % (Auto) % [place] % (Auto) % Eos % (Auto) % Baso % (Auto) % Neut # (Auto) (1.4-6.5) K/uL Lymph # (Auto) (1.2-3.4) K/uL [place] # (Auto) (0.11-0.59) K/uL Eos # (Auto) (0-0.5) K/uL Baso # (Auto) (0-0.2) K/uL Immature Gran # (Auto) (0.00-0.02) K/uL Sodium 134 L (136-145) mmol/L Potassium 4.4 (3.5-5.1) mmol/L Chloride 103 (98-107) mmol/L Carbon Dioxide 24 (21-32) mmol/L Anion Gap 7.0 (3-11) BUN 13 (7-18) mg/dl Creatinine 0.58 L (0.6-1.2) mg/dl Est Cr Clr Drug Dosing 64.4 ml/min Est GFR ( Amer) 98.1 ml/min Est GFR (Non-Af Amer) 84.6 ml/min BUN/Creatinine Ratio 21.6 H (10-20) Glucose 118 H (70-99) mg/dl Estimat Average Glucose mg/dl Hemoglobin A1c (4.5-5.6) % Calcium 7.8 L (8.5-10.1) mg/dl Total Bilirubin (0.2-1) mg/dl AST (15-37) U/L ALT (12-78) U/L Alkaline Phosphatase (45-117) U/L Total Protein (6.4-8.2) gm/dl Albumin (3.4-5.0) gm/dl Globulin (2.5-4.0) gm/dl Albumin/Globulin Ratio (0.9-2) COVID-19 Eval Order Covid19 at [facility] SARS-CoV-2 (PCR) NEGATIVE (Negative) Administered Medications Acetaminophen (Acetaminophen 500 Mg Tab) 1,000 mg PO Q8 FUAD Stop: 08/23/20 21:59 Last Admin: 07/25/20 21:00 Dose: 1,000 mg Documented by: [id number] Admin: 07/25/20 13:20 Dose: 1,000 mg Documented by: [id number] Admin: 07/25/20 06:02 Dose: 1,000 mg Documented by: [id number] Admin: 07/24/20 20:43 Dose: 1,000 mg Documented by: [id number] Amlodipine Besylate (Amlodipine Besylate 5 Mg Tab) 10 mg PO DAILY FUAD Stop: 08/22/20 08:59 Last Admin: 07/25/20 08:36 Dose: 10 mg Documented by: [id number] Admin: 07/24/20 08:58 Dose: 10 mg Documented by: [id number] Admin: 07/23/20 07:44 Dose: 10 mg Documented by: [id number] Docusate Sodium (Docusate Sodium 100 Mg Cap) 100 mg PO BID FUAD Stop: 08/23/20 20:59 Last Admin: 07/25/20 20:19 Dose: 100 mg Documented by: [id number] Admin: 07/25/20 08:36 Dose: 100 mg Documented by: [id number] Admin: 07/24/20 20:44 Dose: 100 mg Documented by: [id number] Doxycycline Hyclate 100 mg/ (Dextrose) 110 mls @ 50 mls/hr IV Q12H FUAD Stop: 08/02/20 12:59 Last Infusion: 07/26/20 02:30 Dose: 0 mls/hr Documented by: [id number] Admin: 07/26/20 00:06 Dose: 50 mls/hr Documented by: [id number] Infusion: 07/25/20 15:36 Dose: 0 mls/hr Documented by: [id number] Admin: 07/25/20 13:20 Dose: 50 mls/hr Documented by: [id number] Infusion: 07/25/20 04:21 Dose: 0 mls/hr Documented by: [id number] Admin: 07/25/20 00:25 Dose: 50 mls/hr Documented by: [id number] Infusion: 07/24/20 15:50 Dose: 0 mls/hr Documented by: [id number] Admin: 07/24/20 12:59 Dose: 50 mls/hr Documented by: [id number] Infusion: 07/24/20 04:44 Dose: 0 mls/hr Documented by: [id number] Admin: 07/24/20 01:45 Dose: 50 mls/hr Documented by: [id number] Infusion: 07/23/20 16:05 Dose: 0 mls/hr Documented by: [id number] Admin: 07/23/20 13:49 Dose: 50 mls/hr Documented by: [id number] Levothyroxine Sodium (Levothyroxine Sodium 100 Mcg Tablet) [facility]: 08/22/20 06:29 Last Admin: 07/25/20 06:02 Dose: 100 mcg Documented by: [id number] Admin: 07/24/20 06:09 Dose: 100 mcg Documented by: [id number] Admin: 07/23/20 05:23 Dose: 100 mcg Documented by: [id number] Metoprolol Tartrate (Metoprolol Tartrate 100 Mg Tab) 100 mg PO [facility] Stop: 08/22/20 20:59 Last Admin: 07/25/20 20:20 Dose: 100 mg Documented by: [id number] Admin: 07/24/20 20:44 Dose: 100 mg Documented by: [id number] Admin: 07/23/20 21:16 Dose: 100 mg Documented by: [id number] Multivitamins (Multivitamin Tab) 1 tab PO QA FUAD Stop: 08/24/20 08:59 Last Admin: 07/25/20 08:37 Dose: 1 tab Documented by: [id number] Sennosides (Senna 8.6 Mg Tab) 17.2 mg PO [facility] Stop: 08/23/20 20:59 Last Admin: 07/25/20 20:20 Dose: 17.2 mg Documented by: [id number] Admin: 07/24/20 20:44 Dose: 17.2 mg Documented by: [id number] Discontinued Medications Acetaminophen (Acetaminophen 325 Mg Tab) 650 mg PO NOW STA Stop: 07/22/20 22:43 Last Admin: 07/22/20 23:07 Dose: 650 mg Documented by: [id number] Dexamethasone (Dexamethasone 4 Mg Tab) 8 mg PO TODAY@08 FUAD Stop: 07/25/20 08:01 Last Admin: 07/25/20 08:37 Dose: 8 mg Documented by: [id number] Famotidine (Famotidine 40 Mg Tablet) 40 mg PO BID FUAD Stop: 08/22/20 08:59 Last Admin: 07/24/20 08:58 Dose: 40 mg Documented by: [id number] Admin: 07/23/20 21:16 Dose: 40 mg Documented by: [id number] Admin: 07/23/20 07:45 Dose: 40 mg Documented by: [id number] Hydromorphone HCl (Hydromorphone Inj 0.5 Mg/0.5 Ml Syr) 0.5 mg IV NOW STA Stop: 07/23/20 00:05 Last Admin: 07/23/20 00:36 Dose: 0.5 mg Documented by: [id number] Sodium Chloride (Nss) 500 mls @ 999 mls/hr IV .Q31M FUAD Stop: 07/23/20 00:45 Last Infusion: 07/23/20 01:18 Dose: 0 mls/hr Documented by: [id number] Admin: 07/23/20 00:37 Dose: 999 mls/hr Documented by: [id number] Sodium Chloride (Nss 1000ml) 1,000 mls @ 60 mls/hr IV .[id number] ONE Stop: 07/23/20 21:14 Last Infusion: 07/24/20 04:41 Dose: 0 mls/hr Documented by: [id number] Admin: 07/23/20 04:46 Dose: 60 mls/hr Documented by: [id number] Promethazine HCl 12.5 mg/ (Sodium Chloride) 50.5 mls @ 202 mls/hr IV Q6H PRN PRN Reason: Nausea And Vomiting Stop: 08/22/20 04:34 Last Infusion: 07/24/20 06:30 Dose: 0 mls/hr Documented by: [id number] Admin: 07/24/20 06:11 Dose: 202 mls/hr Documented by: [id number] Ropivacaine 150 mg/Bupivacaine HCl 20 ml/Epinephrine HCl 0.15 mg/Ketorolac Tromethamine 30 mg/Dexamethasone 4 mg/ Ketamine HCl 10 mg/ Clonidine HCl 100 mcg/ Sodium Chloride 88.35 mls @ 0 mls/hr INFIL ONE ONE; Protocol Stop: 07/24/20 13:01 Last Admin: 07/24/20 14:30 Dose: 93.35 mls/hr Documented by: [id number] Sodium Chloride (Nss 1000ml) 1,000 mls @ 100 mls/hr IV .Q10H FUAD Stop: 07/25/20 06:00 Last Admin: 07/25/20 04:34 Dose: Not Given Documented by: [id number] Infusion: 07/25/20 04:27 Dose: 0 mls/hr Documented by: [id number] Admin: 07/24/20 16:05 Dose: 100 mls/hr Documented by: [id number] Ketorolac Tromethamine (Ketorolac Tromethamine 15 Mg/Ml Vial) 15 mg IV NOW ONE Stop: 07/23/20 02:58 Last Admin: 07/23/20 03:33 Dose: Not Given Documented by: [id number] Ketorolac Tromethamine (Ketorolac Tromethamine 15 Mg/Ml Vial) Confirm Administered Dose 15 mg .ROUTE .STK-MED ONE Stop: 07/23/20 03:11 Last Admin: 07/23/20 03:13 Dose: 15 mg Documented by: [id number] Morphine Sulfate (Morphine Sulfate 2 Mg/Ml Carp) 2 mg IV NOW STA Stop: 07/24/20 05:57 Last Admin: 07/24/20 06:08 Dose: 2 mg Documented by: [id number] Ondansetron HCl (Ondansetron Inj 2 Mg/Ml 2 Ml Vial) 4 mg IV NOW STA Stop: 07/23/20 00:05 Last Admin: 07/23/20 00:36 Dose: 4 mg Documented by: [id number] Ondansetron HCl (Ondansetron Inj 2 Mg/Ml 2 Ml Vial) 2 mg IV ONE ONE Stop: 07/23/20 08:25 Last Admin: 07/23/20 08:41 Dose: 2 mg Documented by: [id number] Pantoprazole Sodium (Pantoprazole 40 Mg Tab) 40 mg PO DAILY FUAD Stop: 08/22/20 08:59 Last Admin: 07/24/20 08:57 Dose: 40 mg Documented by: [id number] Admin: 07/23/20 07:45 Dose: 40 mg Documented by: [id number] Tramadol HCl (Tramadol Hcl 50 Mg Tablet) 25 - 50 mg PO Q4H PRN PRN Reason: Pain Stop: 08/22/20 04:34 Last Admin: 07/24/20 02:55 Dose: 50 mg Documented by: [id number] Admin: 07/23/20 22:44 Dose: 50 mg Documented by: [id number] Admin: 07/23/20 18:13 Dose: 50 mg Documented by: [id number] Admin: 07/23/20 11:31 Dose: 50 mg Documented by: [id number] Tramadol HCl (Tramadol Hcl 50 Mg Tablet) Confirm Administered Dose 50 mg .ROUTE .STK-MED ONE Stop: 07/23/20 04:44 Last Admin: 07/23/20 04:45 Dose: 50 mg Documented by: [id number] Discharge Plan Visit Data Chief Complaint: Fall Stated Complaint: 2' FALL, R FOOT, SHOULDER & ARM PAIM ED Provider: Marino Cespedes Discharge Problem: Closed fracture of right proximal humerus, Fall Patient Disposition: Admitted As Inpatient Discharge Instructions Interventions: ED Discharge Assessment Last Done: 07/23/20 03:42 Discharge Problem: Closed fracture of right proximal humerus Qualifiers: Encounter type: initial encounter Fracture morphology: unspecified fracture morphology Qualified Code(s): S42.201A - Unspecified fracture of upper end of right humerus, initial encounter for closed fracture Fall Qualifiers: Encounter type: initial encounter Qualified Code(s): W19.XXXA - Unspecified fall, initial encounter
[2020-07-23 01:04] LABS: Basophils # (auto) 0.02 K/uL (0-0.2); Basophils % (auto) 0.2 %; Eosinophils # (auto) 0.02 K/uL (0-0.5); Eosinophils % (auto) 0.2 %; Hematocrit (blood only) 36.9 % (37-47); Hemoglobin 12.6 g/dL (12.0-16.0); Immature Granulocytes # (auto) 0.03 K/uL (0.00-0.02); Immature Granulocytes % (auto) 0.2 %; Lymphocytes # (auto) 0.93 K/uL (1.2-3.4); Lymphocytes % (auto) 7.7 %; Mean Corpuscular Hemoglobin 30.4 pg (25-34); Mean Corpuscular Hgb Conc 34.1 g/dL (32-36); Mean Corpuscular Volume 89.1 fL (80-100); Monocytes # (auto) 0.62 K/uL (0.11-0.59); Monocytes % (auto) 5.2 %; Neutrophils # (auto) 10.41 K/uL (1.4-6.5); Neutrophils % (auto) 86.5 %; Platelet Count 265 K/uL (130-400); RDW Coefficient of Variation 14.2 % (11.5-14.5); RDW Standard Deviation 46.3 fL (36.4-46.3); Red Blood Count 4.14 M/uL (4.2-5.4); White Blood Count 12.03 K/uL (4.8-10.8)
[2020-07-23 01:22] LABS: Albumin Level 3.1 gm/dl (3.4-5.0); BUN Creatinine Ratio 21.5 (10-20); Calcium 8.6 mg/dl (8.5-10.1); Creatinine Clr Calc Pharmacy 51.9 ml/min; Est GFR (African American) 89.1 ml/min; Est GFR (Non-African American) 76.9 ml/min
[2020-07-23 01:25] LABS: Albumin Globulin Ratio 0.9 (0.9-2); Bilirubin,Total 0.5 mg/dl (0.2-1); Globulin 3.6 gm/dl (2.5-4.0); Total Protein 6.7 gm/dl (6.4-8.2)
[2020-07-23] MEDS ORDERED: KETOROLAC TROMETHAMINE 15 MG/ML VIAL IV ONE (02:57)
--- NOTE | 2020-07-23 02:57 | History & Physical Report ---
Date of Service July 23, 2020 Assessment & Plan (1) Acute pain of right shoulder due to trauma: Displaced right humeral neck fracture Secondary to mechanical fall hypertension, BP stable hypothyroidism, euthyroid as of TSH from May 2019 Hyperglycemia rule out DM OBS F [facility] consult Re: Right shoulder injury (Patient family requesting for [facility].) Check hemoglobin A1c PT OT eval DVT prophylaxis per Lovenox subcu Full code Patient's daughter requesting updates from providers. Ms. Mary Narayan, contact #[phone]. Text document was generated using [employer] voice recognition software. It may contain grammatical or spelling errors. Kindly contact undersigned for clarification of any documentation item in question. History of Present Illness Chief Complaint: Right shoulder pain, fall Primary Care Provider: Dr. Nahid Nicholas History obtained from patient, family, and records. Medical history significant for hypertension, hyperlipidemia, GERD, hypothyroidism, chronic anemia (baseline hemoglobin 10-11), history complicated diverticulitis status post surgery (2018), history of pericarditis status post colchicine Rx, history of C. difficile as per records. Last confinement December 2019 abdominal pain, pneumoperitoneum on CT. Resolved with conservative management. Last night, patient fell off her porch after going down the wrong side of the stairs. Patient noted achy right shoulder pain post fall. Unable to get up. Denies headache/head trauma, LOC, chest pain, S OB. Patient brought to the ER for evaluation. Ambulation difficulty noted at the ER. MEDICAL HISTORY: As above. SURGERIES: Tonsillectomy/adenoidectomy, thyroid surgery, cholecystectomy, bowel surgery/colostomy creation, cataract surgery FAMILY HISTORY: Hypertension, heart disease. PERSONAL AND SOCIAL HISTORY: Nonsmoker, no chronic intake of alcoholic beverages. 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 Allergies Allergy/AdvReac Type Severity Reaction Status Date / Time codeine AdvReac Intermediate NAUSEA, Verified 07/23/20 02:07 VOMITING colchicine AdvReac Intermediate GI side Verified 07/23/20 02:07 effects fentanyl AdvReac Intermediate vomiting Verified 07/23/20 02:07 Home Medications Medication Instructions Recorded Confirmed Type famotidine [Pepcid] 40 mg PO BID 05/26/19 07/23/20 History levothyroxine 100 mcg PO DAILYBB 05/26/19 07/23/20 History metoprolol tartrate [Lopressor] 100 mg PO HS 05/26/19 07/23/20 History nystatin [Nystop] 1 applic TOPICAL TID PRN 07/18/19 07/23/20 History pantoprazole [Protonix] 40 mg PO DAILY 07/23/19 07/23/20 History amlodipine 10 mg PO DAILY 07/23/20 07/23/20 History calcitriol 0.25 mcg PO Q OTHER DAY 07/23/20 07/23/20 History Past Med/Surg History Medical History (Updated 07/23/20 @ 06:59 by Froilan Mathur DO) Colostomy present Diverticulitis of colon with perforation Diverticulosis GERD (gastroesophageal reflux disease) Hiatal hernia HTN (hypertension) Hypothyroidism Surgical History History of cataract surgery History of colostomy Hx of cholecystectomy Family History Sister Breast cancer Coronary heart disease Brother Coronary heart disease Other Hypertension Social History Smoking Status: Never smoker Hx Alcohol Use: No Hx Substance Use: No Preferred Language: Tanzanian Communication Ability: Effective 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: No Beliefs That Will Affect Care: None marital status: / Current Living Situation: Alone How many Children do You have: 3 Other Information That Helps Us Care for You: No Feels Safe at Home: Yes Safety Concerns: Feels Safe At This Time Assistive Devices: None Review of Systems Review of Systems: As per HPI, all 10 systems reviewed, all other ROS negative Physical Exam Physical Exam: GENERAL: uncomfortable, pleasant, no respiratory distress SKIN: Normal color, warm HEENT: [place] palpebral conjunctivae, no ptosis, dry buccal mucosa NECK : Supple, no tenderness CHEST : CTA, no tenderness HEART : RRR, no obvious murmurs ABDOMEN:, Distention, nontender EXTREMITIES : Right upper extremity sling, no LE swelling/tenderness, no other conspicuous deformities noted NEUROLOGIC : Coherent, no facial asymmetry, no other gross focality Results & Data Results & Data ([facility]) Vital Signs (Past 12 Hours) Vital Signs Temp Pulse Pulse Resp BP BP Pulse Ox 07/23/20 02:51 66 18 126/53 L 99 07/23/20 02:05 65 18 139/56 L 98 07/23/20 00:45 65 18 137/55 L 96 07/23/20 00:43 94 07/22/20 21:59 36.7 C 71 18 135/62 97 Laboratory Results Laboratory Results WBC 12.03 K/uL (4.8-10.8) H 07/23/20 00:39 RBC 4.14 M/uL (4.2-5.4) L 07/23/20 00:39 Hgb 12.6 g/dL (12.0-16.0) 07/23/20 00:39 Hct 36.9 % (37-47) L 07/23/20 00:39 MCV 89.1 fL (80-100) 07/23/20 00:39 MCH 30.4 pg (25-34) 07/23/20 00:39 MCHC 34.1 g/dL (32-36) 07/23/20 00:39 RDW Std Deviation 46.3 fL (36.4-46.3) 07/23/20 00:39 RDW Coeff of Grecia 14.2 % (11.5-14.5) 07/23/20 00:39 Plt Count 265 K/uL (130-400) 07/23/20 00:39 MPV 11.0 fL (7.4-10.4) H 07/23/20 00:39 Immature Gran % (Auto) 0.2 % 07/23/20 00:39 Neut % (Auto) 86.5 % 07/23/20 00:39 Lymph % (Auto) 7.7 % 07/23/20 00:39 [place] % (Auto) 5.2 % 07/23/20 00:39 Eos % (Auto) 0.2 % 07/23/20 00:39 Baso % (Auto) 0.2 % 07/23/20 00:39 Neut # (Auto) 10.41 K/uL (1.4-6.5) H 07/23/20 00:39 Lymph # (Auto) 0.93 K/uL (1.2-3.4) L 07/23/20 00:39 [place] # (Auto) 0.62 K/uL (0.11-0.59) H 07/23/20 00:39 Eos # (Auto) 0.02 K/uL (0-0.5) 07/23/20 00:39 Baso # (Auto) 0.02 K/uL (0-0.2) 07/23/20 00:39 Immature Gran # (Auto) 0.03 K/uL (0.00-0.02) H 07/23/20 00:39 Sodium 134 mmol/L (136-145) L 07/23/20 00:39 Potassium 4.0 mmol/L (3.5-5.1) 07/23/20 00:39 Chloride 104 mmol/L (98-107) 07/23/20 00:39 Carbon Dioxide 25 mmol/L (21-32) 07/23/20 00:39 Anion Gap 5.0 (3-11) 07/23/20 00:39 BUN 16 mg/dl (7-18) 07/23/20 00:39 Creatinine 0.72 mg/dl (0.6-1.2) 07/23/20 00:39 Est Cr Clr Drug Dosing 51.9 ml/min 07/23/20 00:39 Est GFR ( Amer) 89.1 ml/min 07/23/20 00:39 Est GFR (Non-Af Amer) 76.9 ml/min 07/23/20 00:39 BUN/Creatinine Ratio 21.5 (10-20) H 07/23/20 00:39 Glucose 171 mg/dl (70-99) H 07/23/20 00:39 Calcium 8.6 mg/dl (8.5-10.1) 07/23/20 00:39 Total Bilirubin 0.5 mg/dl (0.2-1) 07/23/20 00:39 AST 68 U/L (15-37) H 07/23/20 00:39 ALT 71 U/L (12-78) 07/23/20 00:39 Alkaline Phosphatase 118 U/L (45-117) H 07/23/20 00:39 Total Protein 6.7 gm/dl (6.4-8.2) 07/23/20 00:39 Albumin 3.1 gm/dl (3.4-5.0) L 07/23/20 00:39 Globulin 3.6 gm/dl (2.5-4.0) 07/23/20 00:39 Albumin/Globulin Ratio 0.9 (0.9-2) 07/23/20 00:39 COVID-19 Eval Order Covid19 at [facility] 07/23/20 00:50 SARS-CoV-2 (PCR) NEGATIVE (Negative) 07/23/20 00:[address] right shoulder initial read: Humeral neck fracture with anterior displacement and foreshortening. Mild posterior subluxation humerus with respect to glenoid. CT head initial read: No ICH, mass-effect or edema. Chronic small vessel ischemic changes. No skull fracture. CT cervical spine initial read: Osteopenia and degenerative changes. No acute fracture or subluxation. EKG as per my interpretation rate 75, NSR, LAD, LAFB, RBBB, PVCs
[2020-07-23] MEDS ORDERED: KETOROLAC TROMETHAMINE 15 MG/ML VIAL ONE (03:10)
[2020-07-23] MEDS ORDERED: SODIUM CHLORIDE 0.9% 1000ML 1,000 ML IV ONE (04:35)
[2020-07-23] MEDS ORDERED: MoRPHine SULFATE 4 MG/ML 1 ML CARP\\VIAL IV PRN (04:35)
[2020-07-23] MEDS ORDERED: PROMETHAZINE HCL 12.5 MG in SODIUM CHLORIDE 0.9% 50 ML IV PRN (04:35)
[2020-07-23] MEDS ORDERED: traMADol HCL 50 MG TABLET ONE (04:43)
[2020-07-23] MEDS: LEVOTHYROXINE SODIUM 100 MCG TABLET PO SCH (05:23)
[2020-07-23 05:31] LABS: Estimated Average Glucose 123 mg/dl; Hemoglobin A1C 5.9 % (4.5-5.6)
--- NOTE | 2020-07-23 07:01 | Orthopedic Consultation ---
Date of Service July 23, 2020 Assessment & Plan (1) Closed fracture of right proximal humerus: I talked about the diagnosis and treatment options with Tasneem at bedside. I also called her daughter and talked over the options with her. She is still fairly active for her age. She is right-hand dominant. She ambulates independently and she lives alone. She does have family and friends nearby to help her out. If we treated this conservatively it would heal but she would likely lose most of the function of her right shoulder. If we did a right fracture reverse shoulder replacement I think it would be better for overall pain control at this time and with the to better functional outcomes in the future. I recommended the fracture reverse shoulder replacement. Oanh and her daughter understand the risk, benefits, and alternatives to the procedure and are electing to proceed. I can do the procedure tomorrow afternoon. She will be n.p.o. after midnight tonight. I stopped her Lovenox. She was placed on the operating room schedule for tomorrow. History of Present Illness Reason for Consultation: Right proximal humerus fracture. Requesting Physician: . Attending Physician: Chris Adams MD Danisha is a pleasant 85-year-old female who still fairly active for her age. She lives in a house by herself but she has a lot of family and friends nearby who help her. She is right-hand dominant. Unfortunate she fell last night injuring her right shoulder. She came to the emergency room and radiographs and CT scan showed a complex 4 part fracture of the right proximal humerus. She was placed in a sling and admitted to the medical service. Orthopedics was consulted to evaluate and treat.. Allergies Allergy/AdvReac Type Severity Reaction Status Date / Time codeine AdvReac Intermediate NAUSEA, Verified 07/23/20 02:07 VOMITING colchicine AdvReac Intermediate GI side Verified 07/23/20 02:07 effects fentanyl AdvReac Intermediate vomiting Verified 07/23/20 02:07 Home Medications Medication Instructions Recorded Confirmed Type famotidine [Pepcid] 40 mg PO BID 05/26/19 07/23/20 History levothyroxine 100 mcg PO DAILYBB 05/26/19 07/23/20 History metoprolol tartrate [Lopressor] 100 mg PO HS 05/26/19 07/23/20 History nystatin [Nystop] 1 applic TOPICAL TID PRN 07/18/19 07/23/20 History pantoprazole [Protonix] 40 mg PO DAILY 07/23/19 07/23/20 History amlodipine 10 mg PO DAILY 07/23/20 07/23/20 History calcitriol 0.25 mcg PO Q OTHER DAY 07/23/20 07/23/20 History Past Med/Surg History Medical History (Updated 07/23/20 @ 06:59 by Froilan Mathur DO) Colostomy present Diverticulitis of colon with perforation Diverticulosis GERD (gastroesophageal reflux disease) Hiatal hernia HTN (hypertension) Hypothyroidism Surgical History History of cataract surgery History of colostomy Hx of cholecystectomy Family History Sister Breast cancer Coronary heart disease Brother Coronary heart disease Other Hypertension Social History Smoking Status: Never smoker Hx Alcohol Use: No Hx Substance Use: No Preferred Language: Vietnamese Communication Ability: Effective Stockroom Associate Required: No Beliefs That Will Affect Care: None marital status: / Current Living Situation: Alone How many Children do You have: 3 Other Information That Helps Us Care for You: No Feels Safe at Home: Yes Safety Concerns: Feels Safe At This Time Assistive Devices: None Review of Systems All systems reviewed & are unremarkable except as noted in HPI & below. Physical Exam On physical examination of the right shoulder, there are no abrasions lesions or lacerations of the skin. Her radial, median, and ulnar nerves are checked intact at her wrist. Her axillary nerve was not definitively checked yet.. Constitutional WD/WN, vitals as above Eyes PERRL, conjunctivae normal, anicteric sclerae ENMT external ear and nose normal, oropharynx normal Neck trachea midline, no thyromegaly Respiratory normal respiratory effort Cardiovascular RRR, no murmur, no edema Gastrointestinal (Abdomen) normal bowel sounds, soft, nontender, no hepatosplenomegaly Psychiatric A+Ox3, euthymic affect Results & Data Results & Data Laboratory Results . Diagnostic Findings X-rays and CT scan of the right shoulder were reviewed personally. There is a complex four-part fracture of the right proximal humerus. The CT scan really shows displacement of the humeral head from the greater tuberosity.. PG Care Time/CCT Total # of Minutes Spent Total Time Spent with Patient: Total time spent is greater than 50% in coordination of care (as documented) at patient's floor/unit and/or counseling patient: Coding Level of Care Code 43286 Inpt Consult Level 4 (57 - DECISION FOR SURGERY) Diagnoses Closed fracture of right proximal humerus S42.201A
[2020-07-23 07:29] LABS: BUN Creatinine Ratio 21.6 (10-20); Calcium 7.8 mg/dl (8.5-10.1); Creatinine Clr Calc Pharmacy 64.4 ml/min; Est GFR (African American) 98.1 ml/min; Est GFR (Non-African American) 84.6 ml/min; Potassium 4.4 mmol/L (3.5-5.1)
[2020-07-23] MEDS: amLODIPine BESYLATE 5 MG TAB PO SCH (07:44)
[2020-07-23] MEDS: FAMOTIDINE 40 MG TABLET PO SCH ×2 (07:45→21:16)
[2020-07-23] MEDS: PANTOprazole 40 MG TAB PO SCH (07:45)
--- NOTE | 2020-07-23 08:04 | CT Scan Report ---
CT head/brain wo con CLINICAL HISTORY: Head pain status post trauma COMPARISON STUDY: February 2016 TECHNIQUE: Axial CT of the brain is performed from the vertex to the skull base. IV contrast was not administered for this examination. A dose lowering technique was utilized adhering to the principles of ALARA. CT DOSE: FINDINGS: No intra or extra-axial mass lesions are visualized. There is no CT evidence of acute cortical infarc tion. There is no evidence of midline shift. There is no acute hemorrhage. No calvarial fractures ar e visualized. There are patchy white matter hypodensities likely on a small vessel basis. There is no evidence of pathologic ventricular dilatation. There is no evidence of acute sinusitis IMPRESSION: No acute intracranial findings ACT 112: Negative or not required by law. Electronically signed by: Bryn Hardy M.D. 07/23/2020 8:03 AM
--- NOTE | 2020-07-23 08:21 | XRay Report ---
RIGHT SHOULDER 2 VIEWS; RIGHT HUMERUS 2 VIEWS CLINICAL HISTORY: Fall with right arm injury. FINDINGS: 2 views of the right shoulder with AP and lateral views of the right humerus are obtained. No prior studies are available for comparison at the time of dictation. The skeletal structures are o steopenic. There is an impacted and comminuted fracture of the right humeral head and neck. There is medial displacement of the humeral shaft with overriding of fragments. Overlying soft tissue edema is noted. The distal humerus is intact. No additional fracture is seen at the shoulder joint. The gleno humeral articulation appears maintained. Productive degenerative changes noted at the acromioclavicul ar joint. The right lung parenchyma is clear as visualized. The right elbow joint is grossly maintain ed. IMPRESSION: 1. Impacted, comminuted, and displaced fracture of the right humeral head and neck as above. 2. No additional fracture is identified. Electronically signed by: Remigio Lux M.D. 07/23/2020 8:19 AM
[2020-07-23] MEDS ORDERED: ONDANSETRON INJ 2 MG/ML 2 ML VIAL IV ONE (08:24)
--- NOTE | 2020-07-23 08:52 | CT Scan Report ---
CT SCAN OF THE CERVICAL SPINE CLINICAL HISTORY: Fall. COMPARISON STUDY: No priors. TECHNIQUE: CT scan of the cervical spine is performed from the skull base to the upper thoracic spine . Images are reviewed in the axial, sagittal, and coronal planes. IV contrast was not administered fo r this examination. A dose lowering technique was utilized adhering to the principles of ALARA. FINDINGS: Skeletal structures: The skeletal structures are osteopenic. There is no evidence of fracture or subl uxation involving the cervical spine. Vertebral body height and alignment are maintained. There is st raightening of the cervical lordosis. Anterior osteophytes are seen throughout. The odontoid process and lateral masses are intact. The atlantoaxial articulation is preserved noting productive degenerat nicol change. The spinous processes appear intact. There is moderate to advanced multilevel cervical sp ondylosis. Uncovertebral and facet arthropathy contribute to neural foraminal narrowing at most level s. A right proximal humeral fracture is noted on the project account manager tomogram. Intervertebral discs: Moderate disc space narrowing is seen at C5-C6 and C6-C7. Mild disc space narro wing is noted at the remaining cervical levels. Central canal: Widely patent. Soft tissues: The prevertebral and paraspinous soft tissues are within normal limits. The thyroid gla nd is atrophic. Calvarium: The visualized calvarium at the skull base appears intact. Brain parenchyma: Partially visualized brain parenchyma at the skull base is within normal limits. Sinuses and mastoids: The visualized paranasal sinuses are clear. The mastoid air cells are well pneu matized. IMPRESSION: 1. There is no evidence of fracture or subluxation involving the cervical spine. 2. Osteopenia and spondylotic change as above. 3. A right proximal humeral fracture is noted on the project account manager tomogram. ACT 112: Negative or not required by law. Electronically signed by: Remigio Lux M.D. 07/23/2020 8:51 AM
[2020-07-23] MEDS ORDERED: ENOXAPARIN INJ 30 MG/0.3 ML SYR SQ SCH (09:00)
--- NOTE | 2020-07-23 10:09 | XRay Report ---
RIGHT FOOT 3 VIEWS CLINICAL HISTORY: Right foot injury. FINDINGS: 3 views of the right foot are obtained. No prior studies are available for comparison at th e time of dictation. The skeletal structures are osteopenic. There is fracture through the neck of th e fourth metatarsal with overlying soft tissue edema. No additional fracture is clearly identified. M ild to moderate osteoarthritic change is noted at the first metatarsophalangeal joint. Mild degenerat nicol change is seen throughout the remainder of the foot. Degenerative spurring is seen along the dors al osteophyte of the tarsal bones. IMPRESSION: Fourth metatarsal neck fracture. Electronically signed by: Remigio Lux M.D. 07/23/2020 10:08 AM
--- NOTE | 2020-07-23 10:10 | Hospitalist Progress Note ---
Date of Service July 23, 2020 Assessment & Plan (1) Acute pain of right shoulder due to trauma: Displaced right humeral neck fracture Secondary to mechanical fall [facility] consult Re: Right shoulder injury (Patient family requesting for [facility].) Patient seen by orthopedics earlier today, plan for surgical repair tomorrow, Dr. Mathur hypertension, BP stable hypothyroidism, euthyroid as of TSH from May 2019 Hyperglycemia rule out DM Check hemoglobin A1c PT OT eval DVT prophylaxis per Lovenox subcu- on hold for now for surgery Full code Patient's daughter, Ms. Mary Narayan, to be contacted at #[phone] with updates. Admission and Anticipated Discharge Date Admission Date: July 23, 2020 Subjective Patient seen in follow-up of her right humerus fracture Currently denies any chest pain shortness of breath, however she does have nausea She was seen by orthopedic surgery earlier this morning, and there is plan for surgical repair tomorrow No fevers no chills Review of Systems Review of Systems: All systems reviewed & are unremarkable except as noted in HPI & below Constitutional: no fever and no chills Respiratory: no cough and no dyspnea Cardiovascular: no chest pain and no palpitations Gastrointestinal: no abdominal pain and no vomiting Physical Exam Physical Exam: GENERAL: WD/WN, elderly female pleasant, no respiratory distress HEENT: NC/AT, [place] palpebral conjunctivae, no ptosis NECK : Supple, no tenderness CHEST : CTAB, no wheezing, rhonchi, crackles HEART : RRR, no obvious murmurs ABDOMEN: + colost. bag, no tenderness, soft, + bowel sounds EXTREMITIES : Right upper extremity sling, no LE swelling/tenderness, moves extremities spontaneously NEUROLOGIC : Coherent, no facial asymmetry, no other gross focality SKIN: Normal color, warm Results & Data Results & Data ([facility]) Vital Signs (Past 12 Hours) Vital Signs Temp Pulse Pulse Pulse Resp BP BP 07/23/20 07:18 36.7 C 72 18 124/69 07/23/20 04:37 36.7 C 71 18 134/71 07/23/20 03:49 36.8 C 83 19 119/55 L 07/23/20 03:42 65 18 119/55 L 07/23/20 02:51 66 18 126/53 L 07/23/20 02:05 65 18 139/56 L 07/23/20 00:45 65 18 137/55 L 07/23/20 00:43 Pulse Ox 07/23/20 07:18 95 07/23/20 04:37 93 07/23/20 03:49 97 07/23/20 03:42 96 07/23/20 02:51 99 07/23/20 02:05 98 07/23/20 00:45 96 07/23/20 00:43 94 Laboratory Results 07/23/20 07/23/20 07/23/20 Range/Units 06:23 00:50 00:50 WBC (4.8-10.8) K/uL RBC (4.2-5.4) M/uL Hgb (12.0-16.0) g/dL Hct (37-47) % MCV (80-100) fL MCH (25-34) pg MCHC (32-36) g/dL RDW Std Deviation (36.4-46.3) fL RDW Coeff of Grecia (11.5-14.5) % Plt Count (130-400) K/uL MPV (7.4-10.4) fL Immature Gran % (Auto) % Neut % (Auto) % Lymph % (Auto) % [place] % (Auto) % Eos % (Auto) % Baso % (Auto) % Neut # (Auto) (1.4-6.5) K/uL Lymph # (Auto) (1.2-3.4) K/uL [place] # (Auto) (0.11-0.59) K/uL Eos # (Auto) (0-0.5) K/uL Baso # (Auto) (0-0.2) K/uL Immature Gran # (Auto) (0.00-0.02) K/uL Sodium 134 L (136-145) mmol/L Potassium 4.4 (3.5-5.1) mmol/L Chloride 103 (98-107) mmol/L Carbon Dioxide 24 (21-32) mmol/L Anion Gap 7.0 (3-11) BUN 13 (7-18) mg/dl Creatinine 0.58 L (0.6-1.2) mg/dl Est Cr Clr Drug Dosing 64.4 ml/min Est GFR ( Amer) 98.1 ml/min Est GFR (Non-Af Amer) 84.6 ml/min BUN/Creatinine Ratio 21.6 H (10-20) Glucose 118 H (70-99) mg/dl Estimat Average Glucose mg/dl Hemoglobin A1c (4.5-5.6) % Calcium 7.8 L (8.5-10.1) mg/dl Total Bilirubin (0.2-1) mg/dl AST (15-37) U/L ALT (12-78) U/L Alkaline Phosphatase (45-117) U/L Total Protein (6.4-8.2) gm/dl Albumin (3.4-5.0) gm/dl Globulin (2.5-4.0) gm/dl Albumin/Globulin Ratio (0.9-2) COVID-19 Eval Order Covid19 at [facility] SARS-CoV-2 (PCR) NEGATIVE (Negative) 07/23/20 07/23/20 07/23/20 Range/Units 00:39 00:39 00:39 WBC 12.03 H (4.8-10.8) K/uL RBC 4.14 L (4.2-5.4) M/uL Hgb 12.6 (12.0-16.0) g/dL Hct 36.9 L (37-47) % MCV 89.1 (80-100) fL MCH 30.4 (25-34) pg MCHC 34.1 (32-36) g/dL RDW Std Deviation 46.3 (36.4-46.3) fL RDW Coeff of Grecia 14.2 (11.5-14.5) % Plt Count 265 (130-400) K/uL MPV 11.0 H (7.4-10.4) fL Immature Gran % (Auto) 0.2 % Neut % (Auto) 86.5 % Lymph % (Auto) 7.7 % [place] % (Auto) 5.2 % Eos % (Auto) 0.2 % Baso % (Auto) 0.2 % Neut # (Auto) 10.41 H (1.4-6.5) K/uL Lymph # (Auto) 0.93 L (1.2-3.4) K/uL [place] # (Auto) 0.62 H (0.11-0.59) K/uL Eos # (Auto) 0.02 (0-0.5) K/uL Baso # (Auto) 0.02 (0-0.2) K/uL Immature Gran # (Auto) 0.03 H (0.00-0.02) K/uL Sodium 134 L (136-145) mmol/L Potassium 4.0 (3.5-5.1) mmol/L Chloride 104 (98-107) mmol/L Carbon Dioxide 25 (21-32) mmol/L Anion Gap 5.0 (3-11) BUN 16 (7-18) mg/dl Creatinine 0.72 (0.6-1.2) mg/dl Est Cr Clr Drug Dosing 51.9 ml/min Est GFR ( Amer) 89.1 ml/min Est GFR (Non-Af Amer) 76.9 ml/min BUN/Creatinine Ratio 21.5 H (10-20) Glucose 171 H (70-99) mg/dl Estimat Average Glucose 123 mg/dl Hemoglobin A1c 5.9 H (4.5-5.6) % Calcium 8.6 (8.5-10.1) mg/dl Total Bilirubin 0.5 (0.2-1) mg/dl AST 68 H (15-37) U/L ALT 71 (12-78) U/L Alkaline Phosphatase 118 H (45-117) U/L Total Protein 6.7 (6.4-8.2) gm/dl Albumin 3.1 L (3.4-5.0) gm/dl Globulin 3.6 (2.5-4.0) gm/dl Albumin/Globulin Ratio 0.9 (0.9-2) COVID-19 Eval Order SARS-CoV-2 (PCR) (Negative)
--- NOTE | 2020-07-23 10:24 | CT Scan Report ---
CT shoulder RT wo con CT DOSE: 1505.47 mGy.cm CLINICAL HISTORY: Pt humeral head fracture TECHNIQUE: A dose lowering technique was utilized adhering to the principles of ALARA. COMPARISON STUDY: None. FINDINGS: Comminuted displaced fracture of the humeral neck is seen and associated with impaction and shortenin g. There is anterior displacement of the distal fractured fragment. There is mild subluxation of the right humeral head in relation to glenoid. There is no clavicle or scapular fracture seen. Degenerative changes of acromioclavicular joint is demonstrated. There is effusion of the right shoulder joint. IMPRESSION: Comminuted and displaced fracture of the right humeral neck as detailed above. ACT 112: Negative or not required by law. The above report was generated using voice recognition software. It may contain grammatical, syntax o r spelling errors. Electronically signed by: Anna Almonte DO 07/23/2020 10:23 AM
[2020-07-23] MEDS: traMADol HCL 50 MG TABLET PO PRN ×3 (11:31→22:44)
--- NOTE | 2020-07-23 13:42 | Electrocardiogram Report ---
Test Reason : Blood Pressure : / mmHG Vent. Rate : 077 BPM Atrial Rate : 077 BPM P-R Int : 194 ms QRS Dur : 130 ms QT Int : 418 ms P-R-T Axes : 066 -22 021 degrees QTc Int : 473 ms Sinus rhythm with occasional Premature ventricular complexes Right bundle branch block Abnormal ECG When compared with ECG of 18-JAN-2020 21:13, Premature ventricular complexes are now Present Confirmed by Casper Gonzalez ([id number]) on 07/23/2020 1:42:08 PM Referred By: REFERRED SELF Confirmed By:Casper Gonzalez
[2020-07-23] MEDS: DOXYCYCLINE HYCLATE 100 MG in DEXTROSE 5% 100 ML IV SCH (13:49)
--- NOTE | 2020-07-23 14:30 | XRay Report ---
XR knee LT 1 or 2V routine CLINICAL HISTORY: pain, + L[place] COMPARISON: None. DISCUSSION: The bones are mildly osteopenic. No acute fractures or dislocations are visualized. There are mild degenerative changes. No erosive or destructive changes are visualized IMPRESSION: 1. No acute fractures 2. Mild degenerative change ACT 112: Negative or not required by law. Electronically signed by: Bryn Hardy M.D. 07/23/2020 2:28 PM
[2020-07-23] MEDS: METOPROLOL TARTRATE 100 MG TAB PO SCH (21:16)
[2020-07-24] MEDS: DOXYCYCLINE HYCLATE 100 MG in DEXTROSE 5% 100 ML IV SCH ×2 (01:45→12:59)
[2020-07-24] MEDS: traMADol HCL 50 MG TABLET PO PRN (02:55)
[2020-07-24] MEDS ORDERED: MoRPHine SULFATE 2 MG/ML CARP IV STA (05:56)
[2020-07-24] MEDS: LEVOTHYROXINE SODIUM 100 MCG TABLET PO SCH (06:09)
[2020-07-24 07:01] LABS: Basophils # (auto) 0.01 K/uL (0-0.2); Basophils % (auto) 0.2 %; Eosinophils # (auto) 0.08 K/uL (0-0.5); Eosinophils % (auto) 1.4 %; Hematocrit (blood only) 35.4 % (37-47); Hemoglobin 11.7 g/dL (12.0-16.0); Immature Granulocytes # (auto) 0.01 K/uL (0.00-0.02); Immature Granulocytes % (auto) 0.2 %; Lymphocytes # (auto) 1.18 K/uL (1.2-3.4); Mean Corpuscular Hemoglobin 29.4 pg (25-34); Mean Corpuscular Hgb Conc 33.1 g/dL (32-36); Mean Corpuscular Volume 88.9 fL (80-100); Mean Platelet Volume 10.3 fL (7.4-10.4); Monocytes # (auto) 0.56 K/uL (0.11-0.59); Neutrophils # (auto) 3.77 K/uL (1.4-6.5); Neutrophils % (auto) 67.2 %; Platelet Count 231 K/uL (130-400); RDW Coefficient of Variation 14.1 % (11.5-14.5); RDW Standard Deviation 46.4 fL (36.4-46.3); Red Blood Count 3.98 M/uL (4.2-5.4); White Blood Count 5.61 K/uL (4.8-10.8)
[2020-07-24] MEDS ORDERED: BUPIVACAINE 0.5 % 5 MG/1 ML PF 10ML VIAL ONE (07:21)
[2020-07-24 07:34] LABS: BUN Creatinine Ratio 19.2 (10-20); Creatinine Clr Calc Pharmacy 77.8 ml/min; Est GFR (African American) 104.4 ml/min; Est GFR (Non-African American) 90.1 ml/min; Magnesium 2.2 mg/dl (1.8-2.4)
[2020-07-24 07:35] LABS: Phosphorus 3.4 mg/dl (2.5-4.9)
--- NOTE | 2020-07-24 07:59 | Hospitalist Progress Note ---
Date of Service July 24, 2020 Assessment & Plan (1) Acute pain of right shoulder due to trauma: Displaced right humeral neck fracture Secondary to mechanical fall Analgesia Right lower extremity sling applied Orthopedics consult Re: Right shoulder injury (Patient family requesting for [facility].) Patient seen by orthopedics, plan for surgical repair today (07/24), by Dr. Mathur Lyme arthritis Patient presented at PCPs office on July 15, at that time she reported that she was bit by a tick about 4 to 5 weeks ago, and since then she was having pain and swelling in her left knee also was complaining about some diffuse paresthesias. Lyme panel was obtained, and Positive, reported on 07/23 to patient's daughter, we did obtain the records. Patient did confirm pain in her left knee, no significant erythema or edema noted on physical exam Obtained X-ray of left knee - only shows mild degenerative changes Started patient on doxycycline, orthopedics notified Hypertension, BP stable Hypothyroidism, euthyroid as of TSH from May 2019 Hyperglycemia - current hemoglobin A1c 5.9% - will need to follow up as outpt PT OT eval DVT prophylaxis per Lovenox subcu- on hold for now for surgery Full code Patient's daughter, Ms. Mary Narayan, to be contacted at #[phone] with updates. Admission and Anticipated Discharge Date Admission Date: July 23, 2020 Subjective Patient seen in follow-up of her right humerus fracture, Lyme arthritis Currently denies any chest pain shortness of breath, abd. pain, nausea or vomiting, fevers or chills Appears comfortable Seen by orthopedic surgery - plan for surgical repair later today Review of Systems Review of Systems: All systems reviewed & are unremarkable except as noted in HPI & below Constitutional: no fever and no chills Respiratory: no cough and no dyspnea Cardiovascular: no chest pain and no palpitations Gastrointestinal: no abdominal pain and no vomiting Physical Exam Physical Exam: GENERAL: WD/WN, elderly female pleasant, no respiratory distress HEENT: NC/AT, [place] palpebral conjunctivae, no ptosis NECK : Supple, no tenderness CHEST : CTAB, no wheezing, rhonchi, crackles HEART : RRR, no obvious murmurs ABDOMEN: + colost. bag, no tenderness, soft, + bowel sounds EXTREMITIES : Right upper extremity sling, no LE swelling/tenderness, moves extremities spontaneously NEUROLOGIC : Coherent, no facial asymmetry, speech fluent, answering questions appropriately SKIN: Normal color, warm Results & Data Results & Data ([facility]) Vital Signs (Past 12 Hours) Vital Signs Temp Pulse Pulse Resp BP Pulse Ox 07/24/20 07:52 36.9 C 59 L 18 133/70 92 07/23/20 23:10 36.8 C 71 16 150/68 H 93 07/23/20 21:20 71 131/77 Laboratory Results 07/24/20 07/24/20 07/23/20 Range/Units 06:47 06:47 15:46 WBC 5.61 (4.8-10.8) K/uL RBC 3.98 L (4.2-5.4) M/uL Hgb 11.7 L (12.0-16.0) g/dL Hct 35.4 L (37-47) % MCV 88.9 (80-100) fL MCH 29.4 (25-34) pg MCHC 33.1 (32-36) g/dL RDW Std Deviation 46.4 H (36.4-46.3) fL RDW Coeff of [place]rec[place] 14.1 (11.5-14.5) % Plt Count 231 (130-400) K/uL MPV 10.3 (7.4-10.4) fL Immature Gran % (Auto) 0.2 % Neut % (Auto) 67.2 % Lymph % (Auto) 21.0 % [place] % (Auto) 10.0 % Eos % (Auto) 1.4 % Baso % (Auto) 0.2 % Neut # (Auto) 3.77 (1.4-6.5) K/uL Lymph # (Auto) 1.18 L (1.2-3.4) K/uL [place] # (Auto) 0.56 (0.11-0.59) K/uL Eos # (Auto) 0.08 (0-0.5) K/uL Baso # (Auto) 0.01 (0-0.2) K/uL Immature Gran # (Auto) 0.01 (0.00-0.02) K/uL Sodium 135 L (136-145) mmol/L Potassium 4.0 (3.5-5.1) mmol/L Chloride 105 (98-107) mmol/L Carbon Dioxide 26 (21-32) mmol/L Anion Gap 4.0 (3-11) BUN 9 (7-18) mg/dl Creatinine 0.48 L (0.6-1.2) mg/dl Est Cr Clr Drug Dosing 77.8 ml/min Est GFR ( Amer) 104.4 ml/min Est GFR (Non-Af Amer) 90.1 ml/min BUN/Creatinine Ratio 19.2 (10-20) Glucose 98 (70-99) mg/dl Calcium 8.0 L (8.5-10.1) mg/dl Phosphorus 3.4 (2.5-4.9) mg/dl Magnesium 2.2 (1.8-2.4) mg/dl Blood Type O Positive Antibody Screen POSITIVE A Antibody Identification Anti-M Antibody ID Comment Pending Medications Administered Current Inpatient Medications Amlodipine Besylate (Amlodipine Besylate 5 Mg Tab) 10 mg PO DAILY FUAD Stop: 08/22/20 08:59 Last Admin: 07/23/20 07:44 Dose: 10 mg Documented by: Famotidine (Famotidine 40 Mg Tablet) 40 mg PO BID FUAD Stop: 08/22/20 08:59 Last Admin: 07/23/20 21:16 Dose: 40 mg Documented by: Promethazine HCl 12.5 mg/ (Sodium Chloride) 50.5 mls @ 202 mls/hr IV Q6H PRN PRN Reason: Nausea And Vomiting Stop: 08/22/20 04:34 Last Infusion: 07/24/20 06:30 Dose: Infused Documented by: Doxycycline Hyclate 100 mg/ (Dextrose) 110 mls @ 50 mls/hr IV Q12H FUAD Stop: 08/02/20 12:59 Last Infusion: 07/24/20 04:44 Dose: Infused Documented by: Levothyroxine Sodium (Levothyroxine Sodium 100 Mcg Tablet) 100 mcg PO DAILYBB FUAD Stop: 08/22/20 06:29 Last Admin: 07/24/20 06:09 Dose: 100 mcg Documented by: Metoprolol Tartrate (Metoprolol Tartrate 100 Mg Tab) 100 mg PO HS [facility] Stop: 08/22/20 20:59 Last Admin: 07/23/20 21:16 Dose: 100 mg Documented by: Morphine Sulfate (Morphine Sulfate 4 Mg/Ml 1 Ml Carp\Vial) 4 mg IV Q3H PRN PRN Reason: Pain Stop: 08/06/20 04:34 Pantoprazole Sodium (Pantoprazole 40 Mg Tab) 40 mg PO DAILY FUAD Stop: 08/22/20 08:59 Last Admin: 07/23/20 07:45 Dose: 40 mg Documented by: Tramadol HCl (Tramadol Hcl 50 Mg Tablet) 25 - 50 mg PO Q4H PRN PRN Reason: Pain Stop: 08/22/20 04:34 Last Admin: 07/24/20 02:55 Dose: 50 mg Documented by:
[2020-07-24] MEDS: PANTOprazole 40 MG TAB PO SCH (08:57)
[2020-07-24] MEDS: amLODIPine BESYLATE 5 MG TAB PO SCH (08:58)
[2020-07-24] MEDS: FAMOTIDINE 40 MG TABLET PO SCH (08:58)
--- NOTE | 2020-07-24 12:07 | History & Physical Bridge Note ---
Date of Service July 24, 2020 History & Physical Bridge Note I have examined the patient, reviewed the History & Physical and in the interval since the performance of the History & Physical I have noted the following changes of clinical significance: no changes noted
[2020-07-24] MEDS ORDERED: PROPOFOL IV EMULSION 10 MG/ML 20 ML VIAL IV ONE (12:17)
[2020-07-24] MEDS ORDERED: DEXAMETHASONE SOD INJ 4 MG/ML VIAL ONE (12:17)
[2020-07-24] MEDS ORDERED: fentaNYL citrate 100 MCG/2 ML VIAL ONE (12:17)
[2020-07-24] MEDS ORDERED: ONDANSETRON INJ 2 MG/ML 2 ML VIAL ONE (12:17)
[2020-07-24] MEDS ORDERED: LIDOCAINE 2% 2 ML VIAL/AMP(20MG/ML) INFIL ONE (12:17)
[2020-07-24] MEDS ORDERED: ePHEDrine sulfate 50 MG/ML AMP IV PRN (12:30)
[2020-07-24] MEDS ORDERED: fentaNYL citrate 100 MCG/2 ML VIAL IV PRN (12:30)
[2020-07-24] MEDS ORDERED: ATROPINE SULFATE 0.1 MG/ML 10ML SYR IV PRN (12:30)
[2020-07-24] MEDS ORDERED: ONDANSETRON INJ 2 MG/ML 2 ML VIAL IV PRN ×2 (12:30→15:49)
[2020-07-24] MEDS ORDERED: HYDROmorphone INJ 2 MG/ML SYR/VIAL IV PRN (12:30)
--- NOTE | 2020-07-24 12:30 | Anesthesiology Consultation ---
Date of Service July 24, 2020 Assessment & Plan ASA ASA3 Proposed Anesthesia Anesthesia Type: General Regional Regional Laterality: Right Site: Interscalene Risk / Benefits Reviewed With: PT / POA / Parent / Guardian, Accepts Plan and Informed Consent Obtained History Surgery Operation Date: 07/24/20 13:00 Proposed Procedures p Right Shoulder Fracture Reverse - Froilan Mathur, DO Height/Weight Height: 5 ft 1 in Weight: 69.5 kg Allergies Allergy/AdvReac Type Severity Reaction Status Date / Time codeine AdvReac Intermediate NAUSEA, Verified 07/23/20 02:07 VOMITING colchicine AdvReac Intermediate GI side Verified 07/23/20 02:07 effects fentanyl AdvReac Intermediate vomiting Verified 07/23/20 02:07 Medications Home Medications Medication Instructions Recorded Confirmed Last Taken famotidine [Pepcid] 40 mg PO BID 05/26/19 07/23/20 01/18/20 levothyroxine 100 mcg PO DAILYBB 05/26/19 07/23/20 01/18/20 metoprolol tartrate [Lopressor] 100 mg PO HS 05/26/19 07/23/20 01/17/20 nystatin [Nystop] 1 applic TOPICAL TID PRN 07/18/19 07/23/20 07/23/19 pantoprazole [Protonix] 40 mg PO DAILY 07/23/19 07/23/20 01/18/20 amlodipine 10 mg PO DAILY 07/23/20 07/23/20 Unknown calcitriol 0.25 mcg PO Q OTHER DAY 07/23/20 07/23/20 Unknown Active Medications Generic Name Dose Route Start Last Admin Trade Name Freq PRN Reason Stop Dose Admin Amlodipine Besylate 10 mg 07/23/20 09:00 07/24/20 08:58 Amlodipine Besylate 5 Mg Tab PO 08/22/20 08:59 10 mg DAILY FUAD Administration Famotidine 40 mg 07/23/20 09:00 07/24/20 08:58 Famotidine 40 Mg Tablet PO 08/22/20 08:59 40 mg BID FUAD Administration Promethazine HCl 12.5 mg/ 50.5 mls @ 202 mls/hr 07/23/20 04:35 07/24/20 06:30 Sodium Chloride IV 08/22/20 04:34 Infused Q6H PRN Infusion Nausea And Vomiting Doxycycline Hyclate 100 mg/ 110 mls @ 50 mls/hr 07/23/20 13:00 07/24/20 04:44 Dextrose IV 08/02/20 12:59 Infused Q12H FUAD Infusion Levothyroxine Sodium 100 mcg 07/23/20 06:30 07/24/20 06:09 Levothyroxine Sodium 100 Mcg Tablet PO 08/22/20 06:29 100 mcg DAILYBB FUAD Administration Metoprolol Tartrate 100 mg 07/23/20 21:00 07/23/20 21:16 Metoprolol Tartrate 100 Mg Tab PO 08/22/20 20:59 100 mg HS FUAD Administration Pantoprazole Sodium 40 mg 07/23/20 09:00 07/24/20 08:57 Pantoprazole 40 Mg Tab PO 08/22/20 08:59 40 mg DAILY FUAD Administration Tramadol HCl 25 - 50 mg 07/23/20 04:35 07/24/20 02:55 Tramadol Hcl 50 Mg Tablet PO 08/22/20 04:34 50 mg Q4H PRN Administration Pain NPO Date Last Intake of Fluids: 07/23/20 Time Last Intake of Fluids: 23:00 Last Intake of Fluids Comment: sips of water today Date Last Intake of Solids: 07/23/20 Time Last Intake of Solids: 18:00 Past Medical History Medical History Colostomy present Diverticulitis of colon with perforation Diverticulosis GERD (gastroesophageal reflux disease) Hiatal hernia HTN (hypertension) Hypothyroidism Exercise / Class Metabolic Activity II 4-5 Yardwork/Stairs/Walk up hill Past Family History Family History Sister Breast cancer Coronary heart disease Brother Coronary heart disease Other Hypertension Past Surgical History Surgical History History of cataract surgery History of colostomy Hx of cholecystectomy Past Anesthesia History No Hx of Anesthesia Complications and No Family Hx of Anesthesia Complications History of PONV No Hx of PONV and No Hx of Motion Sickness Social History Smoking Status: Never smoker Hx Alcohol Use: No Hx Substance Use: No Review of Systems denies fever/cough/ colds/ chest pain/ SOB/ REBA denies REBA Physical Exam Vital Signs Last Vital Signs Temp 37.0 C 07/24/20 12:01 Pulse 75 07/24/20 12:01 Resp 18 07/24/20 12:01 BP 142/54 H 07/24/20 12:01 Pulse Ox 92 07/24/20 12:01 ENMT Mouth: + edentulous; no TMJ abnormality and no dentition abnormality Thyromental Distance: > or= 3.5 Finger Breadths Mallampati Class: II Neck neck extension not limited Respiratory normal respiratory effort; no respiratory distress Auscultation: lungs clear to auscultation bilaterally Cardiovascular Rate/Rhythm: regular rate and regular rhythm Neurologic moves all extremities Psychiatric Orientation: alert and oriented x 3 Testing Laboratory Results 07/24/20 06:47 07/24/20 06:47 Hemoglobin A1c 5.9 % (4.5-5.6) H 07/23/20 00:39 Blood Type O Positive 07/23/20 15:46 Antibody Screen POSITIVE A 07/23/20 15:46
[2020-07-24] MEDS ORDERED: ROPIVACAINE 0.5% HCL/PF 150 MG, BUPIVACAINE 0.75% MPF 20 ML, EPINEPHrine 30MG/30ML (OR ... INFIL ONE (13:00)
[2020-07-24] MEDS ORDERED: ePHEDrine sulfate 50 MG/ML SYR ONE (13:22)
--- NOTE | 2020-07-24 14:44 | Operative Report ---
PG Post Operative Report Pre & Post Diagnosis Operation Date: 07/24/20 13:00 Pre-Op Diagnosis: Complex 4 part right proximal humerus fracture Post-Op Diagnosis: Complex 4 part right proximal humerus fracture I identified the patient and participated in the time-out.: Yes Procedure Operation Date: 07/24/20 13:00 Actual Procedures p Right fracture reverse shoulder arthroplasty, with open biceps tenodesis as a distinct and separate procedure (modifier 59)(Right) - Froilan Mathur DO Surgeon Froilan Mathur DO [place] [employer] Froilan Braswell PAC Estimated Blood Loss 150 Findings Consistent with Post-Op Diagnosis Specimens None Complications none Disposition Disposition: Recovery Room Indications Oanh is a pleasant 85-year-old female who fell 2 days ago sustaining a right displaced four-part proximal humerus fracture. She came to the emergency room and was admitted to the medical service. Orthopedics was consulted. After discussions with her and her daughter, we elected proceed with a right reverse shoulder arthroplasty. Description of Procedure A CPT code modifier 59: The long head of the biceps tendon was enlarged and inflamed consistent with tendinopathy. A tenodesis was opted. This was a separate and distinct portion of the procedure. For these reasons, a CPT code modifier 59 will be added to this case. Implants used: I used a Biomet Comprehensive reverse total shoulder arthroplasty system with a size 8 press fit fracture humeral stem, a standard humeral tray and a +3 humeral bearing, a 25 mm small augment baseplate with a 6.5 mm central screw and superior and inferior locking screws, and a size 40 mm eccentric glenosphere. Tasneem was brought down from her hospital room to the operating room for the above procedure. She was seen in the preoperative holding area and the operative extremity was identified and signed. She was given a preoperative antibiotic and an interscalene block. She was taken back to the operating room and laid on the table in the supine position. She was put under general anesthesia. She was put into the beachchair position. The right shoulder was prepped and draped in sterile fashion. A timeout was done. The patient and the operative extremity was properly identified. A deltopectoral approach was used. Dissection was taken down through the fascia and the deltopectoral interval was exposed. The conjoined tendon was retracted medially and the deltoid was retracted laterally. The anterior shoulder was exposed. It was a complex 4 part right proximal humerus fracture. The long head of the biceps tendon was identified. It was frayed from the trauma. The long head of the biceps tendon was then tenodesed to the upper border the pectoralis major. This was a distinct and separate procedure. The remainder of the biceps tendon was released. The rotator interval was opened up. A saw was used to resect the lesser tuberosity off the humeral head. The greater tuberosity was then controlled with multiple #5 FiberWire sutures. The humeral head was then removed. The glenoid was then exposed. Time was spent doing a complete circumferential capsular labral release. The Biomet glenoid guide was then placed in the inferior aspect of the glenoid.A 3.2 mm Steinmann pin was then placed into the glenoid vault at 10 degrees of inclination. The glenoid baseplate was then reamed. The final size 25 mm small augment baseplate was then impacted into place. A single 6.5 mm central screw was placed. Superior and inferior locking screws were then placed. A 40 mm eccentric glenosphere was then impacted into place. The surrounding soft tissues were then injected with 100 cc of an orthopedic pain control cocktail. The proximal humerus was then exposed. Sequential reaming up to a size 8 reamer was done. A size 8 trial fracture stem was then impacted into place. A standard offset humeral tray with a +3 bearing was then trialed. The shoulder was reduced. The shoulder was brought through full range of motion and felt to be stable. The shoulder was then dislocated. The trials were removed. The final size 8 Biomet comprehensive fracture stem was then impacted into place. A +3 humeral bearing was then snapped onto a standard humeral tray. The standard humeral tray was then impacted onto the humeral stem. The shoulder was then reduced. The shoulder was brought through full range of motion and felt to be stable. The greater and lesser tuberosities were then repaired around the fracture stem using multiple #5 FiberWire sutures that went around the prosthesis and through the suture holes in the implant. I was able to get a nice fixation of the rotator cuff around the prosthesis. The wound was then irrigated. The axillary nerve was palpated. A 3-minute Betadine lavage was then done. The deltopectoral interval was closed with 2-0 Vicryl. Skin was closed with 3-0 Vicryl and dequan. She was placed in a soft dressing and a regular arm sling. She was then extubated and transferred to a [facility]. She was taken to the post anesthesia care unit in stable condition. She tolerated the procedure well. Froilan Braswell PA-C, was present for the entire procedure. He was critical for patient positioning, prepping, draping, retraction exposure, wound closure and application of sterile dressing. I attest to the content of the Intraoperative Record and any orders documented therein. Any exceptions are noted below.
--- NOTE | 2020-07-24 15:25 | XRay Report ---
XR shoulder RT min 2V routine CLINICAL HISTORY: Post shoulder surgery COMPARISON: 07/22/2020 DISCUSSION: There are postsurgical changes of a reverse total right shoulder arthroplasty. There is n o dislocation. There are overlying skin dequan. IMPRESSION: Postsurgical changes of a reverse total right shoulder arthroplasty. No evidence of dislo cation. ACT 112: Negative or not required by law. Electronically signed by: Bryn Hardy M.D. 07/24/2020 3:23 PM
[2020-07-24] MEDS ORDERED: NALOXONE HCL 0.4 MG/1 ML VIAL/CARP IV PRN (15:49)
[2020-07-24] MEDS ORDERED: oxyCODONE HCL IR 5 MG TAB (IMMEDIATE RELEASE) PO PRN (15:49)
[2020-07-24] MEDS ORDERED: HYDROmorphone INJ 0.5 MG/0.5 ML SYR IV PRN (15:49)
[2020-07-24] MEDS ORDERED: NYSTATIN POWDER 15GM BTL EXT PRN (15:49)
[2020-07-24] MEDS ORDERED: bisacodyL 10 MG SUPP PR PRN (15:49)
[2020-07-24] MEDS ORDERED: METOCLOPRAMIDE HCL INJ 5 MG/ML 2 ML VIAL IV PRN (15:49)
[2020-07-24] MEDS ORDERED: MAGNESIUM HYDROXIDE SUSP 30 ML UDC PO PRN (15:49)
[2020-07-24] MEDS: SODIUM CHLORIDE 0.9% 1000ML 1,000 ML IV SCH (16:05)
--- NOTE | 2020-07-24 16:45 | Anesthesiology Progress Note ---
Date of Service July 24, 2020 Anesthesia Post Procedure Vital Signs Vital Signs: Temp Pulse Pulse Pulse Resp BP Pulse Ox 07/24/20 16:34 36.9 C 71 16 128/70 93 07/24/20 15:50 36.8 C 88 14 135/70 95 07/24/20 15:40 83 14 140/94 97 07/24/20 15:30 36.5 C 85 18 142/60 H 97 07/24/20 15:20 88 18 145/54 H 97 07/24/20 15:10 97 H 14 130/97 95 07/24/20 15:00 74 14 135/57 L 99 07/24/20 14:58 36.3 C L 74 13 139/56 L 99 07/24/20 12:01 37.0 C 75 18 142/54 H 92 07/24/20 07:52 36.9 C 59 L 18 133/70 92 07/23/20 23:10 36.8 C 71 16 150/68 H 93 07/23/20 21:20 71 131/77 Pain Intensity Right Shoulder: Pain Intensity: 4 Transfer of Care Handoff Completed per policy Notes Mental Status: alert / awake / arousable and participated in evaluation Patient Amnestic to Procedure: Yes Nausea / Vomiting: adequately controlled Pain: adequately controlled Airway Patency, RR, SpO2: stable & adequate BP & HR: stable & adequate Hydration State: stable & adequate Anesthetic Complications: no major complications apparent and Pt Satisfied with anesthetic care
[2020-07-24] MEDS: ACETAMINOPHEN 500 MG TAB PO SCH (20:43)
[2020-07-24] MEDS: DOCUSATE SODIUM 100 MG CAP PO SCH (20:44)
[2020-07-24] MEDS: METOPROLOL TARTRATE 100 MG TAB PO SCH (20:44)
[2020-07-24] MEDS: SENNA 8.6 MG TAB PO SCH (20:44)
[2020-07-25] MEDS: DOXYCYCLINE HYCLATE 100 MG in DEXTROSE 5% 100 ML IV SCH ×2 (00:25→13:20)
[2020-07-25] MEDS: SODIUM CHLORIDE 0.9% 1000ML 1,000 ML IV SCH (04:34)
[2020-07-25] MEDS: ACETAMINOPHEN 500 MG TAB PO SCH ×3 (06:02→21:00)
[2020-07-25] MEDS: LEVOTHYROXINE SODIUM 100 MCG TABLET PO SCH (06:02)
[2020-07-25 06:56] LABS: Basophils # (auto) 0.01 K/uL (0-0.2); Basophils % (auto) 0.1 %; Eosinophils # (auto) 0.01 K/uL (0-0.5); Eosinophils % (auto) 0.1 %; Immature Granulocytes # (auto) 0.03 K/uL (0.00-0.02); Immature Granulocytes % (auto) 0.3 %; Lymphocytes # (auto) 0.75 K/uL (1.2-3.4); Lymphocytes % (auto) 7.3 %; Mean Corpuscular Hemoglobin 29.5 pg (25-34); Mean Corpuscular Hgb Conc 33.3 g/dL (32-36); Mean Corpuscular Volume 88.5 fL (80-100); Mean Platelet Volume 11.3 fL (7.4-10.4); Monocytes # (auto) 1.17 K/uL (0.11-0.59); Monocytes % (auto) 11.5 %; Neutrophils # (auto) 8.24 K/uL (1.4-6.5); Neutrophils % (auto) 80.7 %; Platelet Count 201 K/uL (130-400); RDW Coefficient of Variation 14.2 % (11.5-14.5); RDW Standard Deviation 46.3 fL (36.4-46.3); Red Blood Count 3.73 M/uL (4.2-5.4); White Blood Count 10.21 K/uL (4.8-10.8)
[2020-07-25 07:06] LABS: BUN Creatinine Ratio 23.8 (10-20); Calcium 8.5 mg/dl (8.5-10.1); Creatinine Clr Calc Pharmacy 64.4 ml/min; Est GFR (African American) 98.1 ml/min; Est GFR (Non-African American) 84.6 ml/min; Potassium 4.3 mmol/L (3.5-5.1)
[2020-07-25] MEDS ORDERED: dexAMETHasone 4 MG TAB PO SCH (08:00)
[2020-07-25] MEDS: amLODIPine BESYLATE 5 MG TAB PO SCH (08:36)
[2020-07-25] MEDS: DOCUSATE SODIUM 100 MG CAP PO SCH ×2 (08:36→20:19)
[2020-07-25] MEDS: MULTIVITAMIN TAB PO SCH (08:37)
--- NOTE | 2020-07-25 09:14 | Hospitalist Progress Note ---
Date of Service July 25, 2020 Assessment & Plan (1) Acute pain of right shoulder due to trauma: Displaced right humeral neck fracture Secondary to mechanical fall Analgesia Right lower extremity sling applied Orthopedics consult Re: Right shoulder injury (Patient family requesting for [facility].) Patient seen by orthopedics, Now s/p surgical repair (07/24), by Dr. 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 Lyme panel was obtained, and Positive, reported on 07/23 to patient's daughter, we did obtain the records. Patient did confirm pain in her left knee, no significant erythema or edema noted on physical exam Obtained X-ray of left knee - only shows mild degenerative changes Started patient on doxycycline, orthopedics notified Hypertension, BP stable Hypothyroidism, euthyroid as of TSH from May 2019 Hyperglycemia - current hemoglobin A1c 5.9% - will need to follow up as outpt PT OT eval DVT prophylaxis per Lovenox subcu- on hold for now for surgery Full code Patient's daughter, Ms. Mary Narayan, to be contacted at #[phone] with updates. Admission and Anticipated Discharge Date Admission Date: July 23, 2020 Subjective Patient seen in follow-up of her right humerus fracture, Lyme arthritis Now s/p surgical repair of right shoulder Right arm in a sling Currently denies any chest pain shortness of breath, abd. pain, nausea or vomiting, fevers or chills Appears comfortable, eating breakfast Review of Systems Review of Systems: All systems reviewed & are unremarkable except as noted in HPI & below Constitutional: no fever and no chills Respiratory: no cough and no dyspnea Cardiovascular: no chest pain and no palpitations Gastrointestinal: no abdominal pain, no nausea and no vomiting Physical Exam Physical Exam: GENERAL: WD/WN, elderly female pleasant, no respiratory distress HEENT: NC/AT, [place] palpebral conjunctivae, no ptosis NECK : Supple, no tenderness CHEST : CTAB, no wheezing, rhonchi, crackles HEART : RRR, no obvious murmurs ABDOMEN: + colost. bag, no tenderness, soft, + bowel sounds EXTREMITIES : Right upper extremity sling, no LE swelling/tenderness, moves extremities spontaneously NEUROLOGIC : Alert oriented x3, answering questions appropriately, no facial asymmetry, speech fluent, answering questions appropriately SKIN: Normal color, warm Results & Data Results & Data ([facility]) Vital Signs (Past 12 Hours) Vital Signs Temp Pulse Resp BP Pulse Ox 07/25/20 06:42 36.5 C 56 L 17 125/73 94 07/25/20 03:00 36.6 C 59 L 14 132/65 94 07/24/20 22:58 36.7 C 60 16 109/60 94 Laboratory Results 07/25/20 07/25/20 07/23/20 Range/Units 06:12 06:12 15:46 WBC 10.21 (4.8-10.8) K/uL RBC 3.73 L (4.2-5.4) M/uL Hgb 11.0 L (12.0-16.0) g/dL Hct 33.0 L (37-47) % MCV 88.5 (80-100) fL MCH 29.5 (25-34) pg MCHC 33.3 (32-36) g/dL RDW Std Deviation 46.3 (36.4-46.3) fL RDW Coeff of [place] 14.2 (11.5-14.5) % Plt Count 201 (130-400) K/uL MPV 11.3 H (7.4-10.4) fL Immature Gran % (Auto) 0.3 % Neut % (Auto) 80.7 % Lymph % (Auto) 7.3 % [place] % (Auto) 11.5 % Eos % (Auto) 0.1 % Baso % (Auto) 0.1 % Neut # (Auto) 8.24 H (1.4-6.5) K/uL Lymph # (Auto) 0.75 L (1.2-3.4) K/uL [place] # (Auto) 1.17 H (0.11-0.59) K/uL Eos # (Auto) 0.01 (0-0.5) K/uL Baso # (Auto) 0.01 (0-0.2) K/uL Immature Gran # (Auto) 0.03 H (0.00-0.02) K/uL Sodium 134 L (136-145) mmol/L Potassium 4.3 (3.5-5.1) mmol/L Chloride 107 (98-107) mmol/L Carbon Dioxide 20 L (21-32) mmol/L Anion Gap 7.0 (3-11) BUN 14 D (7-18) mg/dl Creatinine 0.58 L (0.6-1.2) mg/dl Est Cr Clr Drug Dosing 64.4 ml/min Est GFR ( Amer) 98.1 ml/min Est GFR (Non-Af Amer) 84.6 ml/min BUN/Creatinine Ratio 23.8 H (10-20) Glucose 110 H (70-99) mg/dl Calcium 8.5 (8.5-10.1) mg/dl Antibody ID Comment Medications Administered Current Inpatient Medications Acetaminophen (Acetaminophen 500 Mg Tab) 1,000 mg PO Q8 FUAD Stop: 08/23/20 21:59 Last Admin: 07/25/20 06:02 Dose: 1,000 mg Documented by: Amlodipine Besylate (Amlodipine Besylate 5 Mg Tab) 10 mg PO DAILY FUAD Stop: 08/22/20 08:59 Last Admin: 07/25/20 08:36 Dose: 10 mg Documented by: Bisacodyl (Bisacodyl 10 Mg Supp) 10 mg UT DAILY PRN PRN Reason: Constipation Stop: 08/23/20 15:48 Docusate Sodium (Docusate Sodium 100 Mg Cap) 100 mg PO BID FUAD Stop: 08/23/20 20:59 Last Admin: 07/25/20 08:36 Dose: 100 mg Documented by: Hydromorphone HCl (Hydromorphone Inj 0.5 Mg/0.5 Ml Syr) 0.5 mg IV Q4H PRN PRN Reason: Pain or Pre PT Stop: 08/07/20 15:48 Doxycycline Hyclate 100 mg/ (Dextrose) 110 mls @ 50 mls/hr IV Q12H FUAD Stop: 08/02/20 12:59 Last Infusion: 07/25/20 04:21 Dose: Infused Documented by: Levothyroxine Sodium (Levothyroxine Sodium 100 Mcg Tablet) 100 mcg PO DAILYBB FUAD Stop: 08/22/20 06:29 Last Admin: 07/25/20 06:02 Dose: 100 mcg Documented by: Magnesium Hydroxide (Magnesium Hydroxide Susp 30 Ml Udc) 30 ml PO Q6H PRN PRN Reason: Constipation Stop: 08/23/20 15:48 Metoclopramide HCl (Metoclopramide Hcl Inj 5 Mg/Ml 2 Ml Vial) 10 mg IV Q6H PRN PRN Reason: Nausea And Vomiting Stop: 08/23/20 15:48 Metoprolol Tartrate (Metoprolol Tartrate 100 Mg Tab) 100 mg PO [facility] Stop: 08/22/20 20:59 Last Admin: 07/24/20 20:44 Dose: 100 mg Documented by: Multivitamins (Multivitamin Tab) 1 tab PO QAM [facility] Stop: 08/24/20 08:59 Last Admin: 07/25/20 08:37 Dose: 1 tab Documented by: Naloxone HCl (Naloxone Hcl 0.4 Mg/1 Ml Vial/Carp) 0.1 mg IV Q5M PRN PRN Reason: Oversedation/Resp Depression Stop: 08/23/20 15:48 Nystatin (Nystatin Powder 15gm Btl) 1 appln EXT TID PRN PRN Reason: DIRECTED Stop: 08/23/20 15:48 Ondansetron HCl (Ondansetron Inj 2 Mg/Ml 2 Ml Vial) 4 mg IV Q6H PRN PRN Reason: Nausea And Vomiting Stop: 08/23/20 15:48 Oxycodone HCl (Oxycodone Hcl Ir 5 Mg Tab (Immediate Release)) 5 - 10 mg PO Q4H PRN PRN Reason: Pain or Pre PT Stop: 08/07/20 15:48 Sennosides (Senna 8.6 Mg Tab) 17.2 mg PO [facility] Stop: 08/23/20 20:59 Last Admin: 07/24/20 20:44 Dose: 17.2 mg Documented by: Tramadol HCl (Tramadol Hcl 50 Mg Tablet) 50 - 100 mg PO Q4H PRN PRN Reason: Pain & Pre PT Stop: 08/23/20 15:48
--- NOTE | 2020-07-25 10:55 | Anesthesiology Progress Note ---
Date of Service July 25, 2020 Anesthesia Post Procedure Vital Signs Vital Signs: Temp Pulse Pulse Pulse Resp BP Pulse Ox 07/25/20 06:42 36.5 C 56 L 17 125/73 94 07/25/20 03:00 36.6 C 59 L 14 132/65 94 07/24/20 22:58 36.7 C 60 16 109/60 94 07/24/20 18:46 93 07/24/20 18:45 36.6 C 79 16 143/64 H 89 L 07/24/20 17:32 36.6 C 79 16 132/69 94 07/24/20 16:50 75 16 135/65 94 07/24/20 16:34 36.9 C 71 16 128/70 93 07/24/20 15:50 36.8 C 88 14 135/70 95 07/24/20 15:40 83 14 140/94 97 07/24/20 15:30 36.5 C 85 18 142/60 H 97 07/24/20 15:20 88 18 145/54 H 97 07/24/20 15:10 97 H 14 130/97 95 07/24/20 15:00 74 14 135/57 L 99 07/24/20 14:58 36.3 C L 74 13 139/56 L 99 07/24/20 12:01 37.0 C 75 18 142/54 H 92 Pain Intensity Right Shoulder: Pain Intensity: 4 Transfer of Care Handoff Completed per policy Notes Mental Status: alert / awake / arousable Patient Amnestic to Procedure: Yes Nausea / Vomiting: adequately controlled Pain: adequately controlled Airway Patency, RR, SpO2: stable & adequate BP & HR: stable & adequate Hydration State: stable & adequate Neuraxial Anesthesia: sensory block resolved Anesthetic Complications: no major complications apparent and Pt Satisfied with anesthetic care
[2020-07-25] MEDS: METOPROLOL TARTRATE 100 MG TAB PO SCH (20:20)
[2020-07-25] MEDS: SENNA 8.6 MG TAB PO SCH (20:20)
[2020-07-26] MEDS: DOXYCYCLINE HYCLATE 100 MG in DEXTROSE 5% 100 ML IV SCH (00:06)
[2020-07-26] MEDS: traMADol HCL 50 MG TABLET PO PRN ×2 (04:07→14:20)
[2020-07-26] MEDS: ACETAMINOPHEN 500 MG TAB PO SCH (06:03)
[2020-07-26] MEDS: LEVOTHYROXINE SODIUM 100 MCG TABLET PO SCH (06:05)
[2020-07-26 06:21] LABS: Hematocrit (blood only) 31.1 % (37-47); Hemoglobin 10.6 g/dL (12.0-16.0); Mean Corpuscular Hemoglobin 30.1 pg (25-34); Mean Corpuscular Hgb Conc 34.1 g/dL (32-36); Mean Corpuscular Volume 88.4 fL (80-100); Mean Platelet Volume 10.6 fL (7.4-10.4); Platelet Count 275 K/uL (130-400); RDW Coefficient of Variation 14.2 % (11.5-14.5); RDW Standard Deviation 46.2 fL (36.4-46.3); Red Blood Count 3.52 M/uL (4.2-5.4); White Blood Count 8.77 K/uL (4.8-10.8)
[2020-07-26 06:59] LABS: BUN Creatinine Ratio 30.4 (10-20); Calcium 8.6 mg/dl (8.5-10.1); Creatinine Clr Calc Pharmacy 69.1 ml/min; Est GFR (African American) 100.4 ml/min; Est GFR (Non-African American) 86.7 ml/min; Potassium 3.6 mmol/L (3.5-5.1)
[2020-07-26] MEDS ORDERED: POTASSIUM CHLORIDE CRTAB 20 MEQ TABCR PO STA (07:52)
--- NOTE | 2020-07-26 07:52 | Hospitalist Progress Note ---
Date of Service July 26, 2020 Assessment & Plan (1) Acute pain of right shoulder due to trauma: Displaced right humeral neck fracture Secondary to mechanical fall Analgesia Right lower extremity sling applied Orthopedics consult Re: Right shoulder injury (Patient family requesting for [facility].) Now s/p surgical repair (07/24), by Dr. Mathur Tolerated procedure well, right arm in a sling Further care per orthopedics instructions Lyme arthritis Patient presented at PCPs office on July 15, at that time she reported that she was bit by a tick about 4 to 5 weeks ago, and since then she was having pain and swelling in her left knee also was complaining about some diffuse paresthesias. Lyme panel was obtained, and Positive, reported on 07/23 to patient's daughter, we did obtain the records. Patient did confirm pain in her left knee, no significant erythema or edema noted on physical exam Obtained X-ray of left knee - only shows mild degenerative changes Started patient on doxycycline, orthopedics notified Recommend to continue doxycycline for 4 weeks unless otherwise specified by a family physician Hypertension, BP stable Hypothyroidism, euthyroid as of TSH from May 2019 Hyperglycemia - current hemoglobin A1c 5.9% - will need to follow up as outpt PT OT eval DVT prophylaxis per Lovenox subcu- on hold for now for surgery Full code Patient's daughter, Ms. Mary Narayan, to be contacted at #[phone] with updates. Admission and Anticipated Discharge Date Admission Date: July 23, 2020 Subjective Patient seen in follow-up of her right humerus fracture, Lyme arthritis Now s/p surgical repair of right shoulder Right arm in a sling Currently denies any chest pain shortness of breath, abd. pain, nausea or vomiting, fevers or chills Appears comfortable Says she was having some pain in right shoulder last night Also reports working with PT Review of Systems Review of Systems: All systems reviewed & are unremarkable except as noted in HPI & below Constitutional: no fever and no chills Respiratory: no cough and no dyspnea Cardiovascular: no chest pain and no palpitations Gastrointestinal: no abdominal pain, no nausea and no vomiting Physical Exam Physical Exam: GENERAL: WD/WN, elderly female pleasant, no respiratory distress HEENT: NC/AT, [place] palpebral conjunctivae, no ptosis NECK : Supple, no tenderness CHEST : CTAB, no wheezing, rhonchi, crackles HEART : RRR, no obvious murmurs ABDOMEN: + colost. bag, no tenderness, soft, + bowel sounds EXTREMITIES : Right upper extremity sling, moving her right hand and fingers, no LE swelling/tenderness, moves extremities spontaneously NEUROLOGIC : Alert oriented x3, answering questions appropriately, no facial asymmetry, speech fluent, answering questions appropriately SKIN: Normal color, warm Results & Data Results & Data ([facility]) Vital Signs (Past 12 Hours) Vital Signs Temp Pulse Resp BP Pulse Ox 07/26/20 07:49 36.8 C 65 16 150/65 H 93 07/25/20 22:47 36.7 C 65 18 153/69 H 91 07/25/20 20:10 71 131/61 Laboratory Results 07/26/20 07/26/20 Range/Units 05:56 05:56 WBC 8.77 (4.8-10.8) K/uL RBC 3.52 L (4.2-5.4) M/uL Hgb 10.6 L (12.0-16.0) g/dL Hct 31.1 L (37-47) % MCV 88.4 (80-100) fL MCH 30.1 (25-34) pg MCHC 34.1 (32-36) g/dL RDW Std Deviation 46.2 (36.4-46.3) fL RDW Coeff of Grecia 14.2 (11.5-14.5) % Plt Count 275 (130-400) K/uL MPV 10.6 H (7.4-10.4) fL Sodium 139 (136-145) mmol/L Potassium 3.6 D (3.5-5.1) mmol/L Chloride 106 (98-107) mmol/L Carbon Dioxide 27 (21-32) mmol/L Anion Gap 6.0 (3-11) BUN 17 (7-18) mg/dl Creatinine 0.54 L (0.6-1.2) mg/dl Est Cr Clr Drug Dosing 69.1 ml/min Est GFR ( Amer) 100.4 ml/min Est GFR (Non-Af Amer) 86.7 ml/min BUN/Creatinine Ratio 30.4 H (10-20) Glucose 87 (70-99) mg/dl Calcium 8.6 (8.5-10.1) mg/dl Medications Administered Current Inpatient Medications Acetaminophen (Acetaminophen 500 Mg Tab) 1,000 mg PO Q8 FUAD Stop: 08/23/20 21:59 Last Admin: 07/26/20 06:03 Dose: 1,000 mg Documented by: Amlodipine Besylate (Amlodipine Besylate 5 Mg Tab) 10 mg PO DAILY FUAD Stop: 08/22/20 08:59 Last Admin: 07/25/20 08:36 Dose: 10 mg Documented by: Bisacodyl (Bisacodyl 10 Mg Supp) 10 mg LA DAILY PRN PRN Reason: Constipation Stop: 08/23/20 15:48 Docusate Sodium (Docusate Sodium 100 Mg Cap) 100 mg PO BID FUAD Stop: 08/23/20 20:59 Last Admin: 07/25/20 20:19 Dose: 100 mg Documented by: Hydromorphone HCl (Hydromorphone Inj 0.5 Mg/0.5 Ml Syr) 0.5 mg IV Q4H PRN PRN Reason: Pain or Pre PT Stop: 08/07/20 15:48 Doxycycline Hyclate 100 mg/ (Dextrose) 110 mls @ 50 mls/hr IV Q12H FUAD Stop: 08/02/20 12:59 Last Infusion: 07/26/20 02:30 Dose: Infused Documented by: Levothyroxine Sodium (Levothyroxine Sodium 100 Mcg Tablet) 100 mcg PO DAILYBB FUAD Stop: 08/22/20 06:29 Last Admin: 07/26/20 06:05 Dose: 100 mcg Documented by: Magnesium Hydroxide (Magnesium Hydroxide Susp 30 Ml Udc) 30 ml PO Q6H PRN PRN Reason: Constipation Stop: 08/23/20 15:48 Metoclopramide HCl (Metoclopramide Hcl Inj 5 Mg/Ml 2 Ml Vial) 10 mg IV Q6H PRN PRN Reason: Nausea And Vomiting Stop: 08/23/20 15:48 Metoprolol Tartrate (Metoprolol Tartrate 100 Mg Tab) 100 mg PO HS [facility] Stop: 08/22/20 20:59 Last Admin: 07/25/20 20:20 Dose: 100 mg Documented by: Multivitamins (Multivitamin Tab) 1 tab PO QAM FUAD Stop: 08/24/20 08:59 Last Admin: 07/25/20 08:37 Dose: 1 tab Documented by: Naloxone HCl (Naloxone Hcl 0.4 Mg/1 Ml Vial/Carp) 0.1 mg IV Q5M PRN PRN Reason: Oversedation/Resp Depression Stop: 08/23/20 15:48 Nystatin (Nystatin Powder 15gm Btl) 1 appln EXT TID PRN PRN Reason: DIRECTED Stop: 08/23/20 15:48 Ondansetron HCl (Ondansetron Inj 2 Mg/Ml 2 Ml Vial) 4 mg IV Q6H PRN PRN Reason: Nausea And Vomiting Stop: 08/23/20 15:48 Oxycodone HCl (Oxycodone Hcl Ir 5 Mg Tab (Immediate Release)) 5 - 10 mg PO Q4H PRN PRN Reason: Pain or Pre PT Stop: 08/07/20 15:48 Sennosides (Senna 8.6 Mg Tab) 17.2 mg PO HS FUAD Stop: 08/23/20 20:59 Last Admin: 07/25/20 20:20 Dose: 17.2 mg Documented by: Tramadol HCl (Tramadol Hcl 50 Mg Tablet) 50 - 100 mg PO Q4H PRN PRN Reason: Pain & Pre PT Stop: 08/23/20 15:48 Last Admin: 07/26/20 04:07 Dose: 50 mg Documented by:
[2020-07-26] MEDS: MULTIVITAMIN TAB PO SCH (08:55)
[2020-07-26] MEDS: DOCUSATE SODIUM 100 MG CAP PO SCH (08:55)
[2020-07-26] MEDS: amLODIPine BESYLATE 5 MG TAB PO SCH (08:56)
[2020-07-26] MEDS ORDERED: ADVANCED PROBIOTIC 1250 MG CAPSULE PO SCH (11:00)
--- NOTE | 2020-07-26 11:28 | Orthopedic Progress Note ---
Date of Service July 26, 2020 Assessment & Plan (1) Closed fracture of right proximal humerus: Doing well. Sling for 3 weeks. May be discharged to [facility] today. Full discharge instructions placed in discharge summary. Subjective Oanh is doing well with her shoulder. No pain and no complaints . Review of Systems All systems reviewed & are unremarkable except as noted in HPI & below. Physical Exam Dressing is clean and dry . Results & Data Results & Data Laboratory Results . Diagnostic Findings . PG Care Time/CCT Total # of Minutes Spent Total Time Spent with Patient: Total time spent is greater than 50% in coordination of care (as documented) at patient's floor/unit and/or counseling patient: Coding Level of Care Code 84792 Post Operative Follow-Up Diagnoses Closed fracture of right proximal humerus S42.201A Encounter type: initial encounter Fracture morphology: unspecified fracture morphology (1) Closed fracture of right proximal humerus Encounter type: initial encounter Fracture morphology: unspecified fracture morphology Qualified Code(s): S42.201A - Unspecified fracture of upper end of right humerus, initial encounter for closed fracture
--- NOTE | 2020-07-26 11:40 | Discharge Summary ---
Date of Service July 26, 2020 Admission HPI Per Admitting Provider History obtained from patient, family, and records. Medical history significant for hypertension, hyperlipidemia, GERD, hypothyroidism, chronic anemia (baseline hemoglobin 10-11), history complicated diverticulitis status post surgery (2018), history of pericarditis status post colchicine Rx, history of C. difficile as per records. Last confinement December 2019 abdominal pain, pneumoperitoneum on CT. Resolved with conservative management. Last night, patient fell off her porch after going down the wrong side of the stairs. Patient noted achy right shoulder pain post fall. Unable to get up. Denies headache/head trauma, LOC, chest pain, S OB. Patient brought to the ER for evaluation. Ambulation difficulty noted at the ER. MEDICAL HISTORY: As above. SURGERIES: Tonsillectomy/adenoidectomy, thyroid surgery, cholecystectomy, bowel surgery/colostomy creation, cataract surgery FAMILY HISTORY: Hypertension, heart disease. PERSONAL AND SOCIAL HISTORY: Nonsmoker, no chronic intake of alcoholic nirali erages. 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 Admission Exam Per Admitting Provider GENERAL: uncomfortable, pleasant, no respiratory distress SKIN: Normal color, warm HEENT: [place] palpebral conjunctivae, no ptosis, dry buccal mucosa NECK : Supple, no tenderness CHEST : CTA, no tenderness HEART : RRR, no obvious murmurs ABDOMEN:, Distention, nontender EXTREMITIES : Right upper extremity sling, no LE swelling/tenderness, no other conspicuous deformities noted NEUROLOGIC : Coherent, no facial asymmetry, no other gross focality Principal Diagnosis Right humoral fracture Lyme arthritis Discharge Exam GENERAL: WD/WN, elderly female pleasant, no respiratory distress HEENT: NC/AT, [place] palpebral conjunctivae, no ptosis NECK : Supple, no tenderness CHEST : CTAB, no wheezing, rhonchi, crackles HEART : RRR, no obvious murmurs ABDOMEN: + colost. bag, no tenderness, soft, + bowel sounds EXTREMITIES : Right upper extremity sling, moving her right hand and fingers, no LE swelling/tenderness, moves extremities spontaneously NEUROLOGIC : Alert oriented x3, answering questions appropriately, no facial asymmetry, speech fluent, answering questions appropriately SKIN: Normal color, warm Discharge Data Allergies Allergy/AdvReac Type Severity Reaction Status Date / Time codeine AdvReac Intermediate NAUSEA, Verified 07/23/20 02:07 VOMITING colchicine AdvReac Intermediate GI side Verified 07/23/20 02:07 effects fentanyl AdvReac Intermediate vomiting Verified 07/23/20 02:07 Procedures Performed Operation Date: 07/24/20 13:00 Actual Procedures p Right Shoulder Fracture Reverse(Right) - Froilan Mathur, Ordered Studies 07/23/20 00:02 CT cervical spine wo con Urgent IMPRESSION: 1. There is no evidence of fracture or subluxation involving the cervical spine. 2. Osteopenia and spondylotic change as above. 3. A right proximal humeral fracture is noted on the any commodity buyer tomogram. CT head/brain wo con Urgent IMPRESSION: No acute intracranial findings 07/23/20 00:22 CT shoulder RT wo con Urgent IMPRESSION: Comminuted and displaced fracture of the right humeral neck as detailed above. 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 No evidence of dislocation. XR L knee IMPRESSION: 1. No acute fractures 2. Mild degenerative change Hospital Course (1) Acute pain of right shoulder due to trauma: Displaced right humeral neck fracture Secondary to mechanical fall Analgesia Right lower extremity sling applied Orthopedics consult Re: Right shoulder injury (Patient family requesting for [facility].) Now s/p surgical repair (07/24), by Dr. Mathur Tolerated procedure well, right arm in a sling Further care per orthopedics discharge instructions Lyme arthritis Patient presented at PCPs office on July 15, at that time she reported that she was bit by a tick about 4 to 5 weeks ago, and since then she was having pain and swelling in her left knee also was complaining about some diffuse paresthesias. Lyme panel was obtained, and Positive, reported on 07/23 to patient's daughter, we did obtain the records. Patient did confirm pain in her left knee, no significant erythema or edema noted on physical exam Obtained X-ray of left knee - only shows mild degenerative changes Started patient on doxycycline, orthopedics notified Recommend to continue doxycycline for 4 weeks unless otherwise specified by a family physician Hypertension, BP stable Hypothyroidism, euthyroid as of TSH from May 2019 Hyperglycemia - current hemoglobin A1c 5.9% - will need to follow up as outpt PT OT Dispo: Plan to discharge to [facility] Patient's daughter, Ms. Mary Narayan, to be contacted at #[phone] with updates. Total Time Total Time Spent Total Time Spent (In Minutes): 35 Total Time Includes: Examination of the Patient, Discharge Planning, Medication Reconciliation and Communication With Other Providers Discharge Plan Discharge Items Patient Disposition: Transfer Inpatient Rehab Fac Reason For Visit: RT SHOULDER PAIN Discharge Diagnosis: Right humoral fracture Lyme arthritis Activity: Per Instructions section Non-emergency contact: Primary Care Provider and Surgeon Call non-emergency contact if: you have any medication questions and your symptoms worsen Follow-up/Referrals: Nahid Nicholas [Primary Care Provider] - Diet: Heart Healthy Addcole Attending Provider Instructions: You will need to follow-up closely with a family doctor and your orthopedic surgeon. For pain you can take Tylenol 1000 mg 3 times a day. You can also take tramadol for more severe pain as prescribed. You were diagnosed with Lyme disease- continue to take antibiotic, doxycycline, until otherwise specified by your family doctor (treatments take several weeks). It is also recommended that you take probiotics while you are on a prolonged antibiotic treatment. Addtl Senior Infrastructure Engineer Provider Instructions: Activity and Therapy Recommendations: * If you are using [facility] then therapy will be provided at your home until they feel you have accomplished all of your goals. * If you are using [facility] then Physical Therapy will be provided until they feel you are ready to start Outpatient Physical Therapy. * If you are not using home therapy then Outpatient Physical Therapy should start about 3-5 days from your day of surgery. Therapy will last about 8-12 weeks * Wear your sling for 3 weeks, unless otherwise instructed. You may remove your sling to shower and to dress, but otherwise, you should be in your sling at all times, including while sleeping * The shoulder replacement is very stable and you can use your hand while in the sling * You were shown a series of exercises in the hospital. Do these exercises daily including the exercises you were shown in physical therapy. Medications: * Narcotic You will likely be sent home from the hospital with a prescription for the narcotic pain medication that worked best throughout your stay. * Other medications may be prescribed for specific circumstances. If you have any questions, please call the office at . * Resume previous home medications unless otherwise instructed Dressing Care: Leave the Silverlon dressing in place for 7 days. After 7 days you may remove the dressing. If the incision is not draining then you may leave the dequan open to air. If there is a little bit of drainage or if the dequan are getting stuck on your clothing then cover the incision with a dry dressing. The dequan will be removed at your 2 week follow-up appointment. Showering: You may shower with the Silverlon dressing in place. Do not let the shower spray hit the dressing directly. Pat the Silver[place] dressing dry. If the dressing becomes wet underneath, then simply remove the dressing. Keep the incision dry until you are 7 days out from the day of surgery. After 7 days you may remove the Silverlon dressing and shower with the dequan exposed. Let soapy water run over the dequan and pat them dry. Do not scrub or soak the incision. Things To Watch For: * Drainage from the incision site that occurs more than one week after your surgery. * Increased redness at the incision site. * Fever above 102 degrees Fahrenheit. * Unusual chest pain or shortness of breath. * Call [facility] at with any of the above problems Follow-Up Visit: Follow-up with Dr. Mathur's PA (Froilan Braswell) 2-3 weeks after your day of surgery. He will remove your dequan and answer any questions. If you have any additional questions or concerns, Dr Mathur is usually in the office at the same time and will be available If you have any questions call More detailed instructions as well as Frequently Asked Questions were provided in a folder by our office when you signed-up for surgery. Please review these instructions when you get home. If you have any further questions or concerns, please feel free to call the office at [phone] Pending Studies at Discharge: No Stand-Alone Forms: My [facility] Skilled Items Patient informed of condition?: Yes DNR: No Discharge Level of Care: Acute rehab Communicable Disease: No Discharge Prognosis: Stable Lines: None Urinary Catheter: No Medications and DC Order Prescriptions: New tramadol 50 mg Tablet 50 mg PO Q4H PRN (Reason: pain) Qty: 10 RF: 0 doxycycline hyclate 100 mg capsule 100 mg PO BID 28 Days Qty: 56 RF: 0 acetaminophen 500 mg Tablet 1,000 mg PO Q8 Qty: 20 RF: 0 Advanced Probiotic 625 mg (10 billion cell) Capsule 2 cap PO DAILY Qty: 20 RF: 0 Continued nystatin [Nystop] 100,000 unit/gram powder 1 applic TOPICAL TID PRN (Reason: DIRECTED) RF: 0 metoprolol tartrate [Lopressor] 100 mg tablet 100 mg PO HS RF: 0 famotidine [Pepcid] 40 mg tablet 40 mg PO BID RF: 0 levothyroxine 100 mcg tablet 100 mcg PO DAILYBB RF: 0 pantoprazole [Protonix] 40 mg Tablet,Delayed Release (Dr/Ec) 40 mg PO DAILY RF: 0 amlodipine 10 mg tablet 10 mg PO DAILY RF: 0 calcitriol 0.25 mcg capsule 0.25 mcg PO Q OTHER DAY RF: 0 Discharge Orders: Discharge Order (Routine); Ordered 07/26/20 Ordered By: Maykel Hutchinson Admission Data Admit Date/Time: 07/23/20 07:38 Attending Provider: Maykel Hutchinson Admit Provider: Anshul Taylor Primary Care Provider: Nahid Nicholas Other Providers: [facility]
== END 2020-07-26 15:21 | DRG 483 ==
LOC: ED 21:49 → 3N 21:49 → SUATTDRO 07-23 02:59 → 3N 07-23 03:42

== ENCOUNTER 2021-04-18 17:44 | Observation (INO) ==
[2021-04-18] MEDS ORDERED: SODIUM CHLORIDE 0.9% 500 ML IV STA (18:41)
--- NOTE | 2021-04-18 18:42 | Emergency Department Note ---
Impression & Plan Acute hyponatremia ADMIT ED Provider Note HPI: The patient is an 85-year-old female with history of diverticulitis with perforation status post colostomy, presents the emergency department the chief complaint of generalized weakness. This is the second presentation this month for the patient, she previously was evaluated for abdominal discomfort and loose stools through her ostomy bag. She states that since then her abdominal discomfort has subsided but she continues to have loose stools, states she feels generally weak, states she is feeling dizzy with ambulation and too weak to ambulate. On arrival here to the ED the patient is well-appearing, she is hemod ynamically stable, she is in no acute distress on my initial evaluation. ROS: -General: Generalized weakness, ambulatory dysfunction -GI: Loose stools *10 point review systems was conducted and is otherwise negative unless stated above *Outpatient medications and allergy history reviewed PE: General: Alert, NAD HEENT: Normocephalic, atraumatic Eyes: Extraocular eye movement is intact, no scleral erythema Pulmonary: Clear to auscultation bilaterally, no wheezing Cardio: Regular rate and rhythm GI: Abdomen is soft, nontender, ostomy bag in place to the left side of the abdomen without surrounding erythema or drainage : No suprapubic tenderness MSK: No evidence of trauma or malformation of the extremities, no edema Skin: No evidence of rash Neuro: Alert, no focal deficits 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 She states she does live alone but has family that frequently stops in to help her every day. On arrival here to the ED she is nontoxic-appearing. Abdomen is soft and nontender. Lab work was obtained and shows evidence of worsening hyponatremia from previous, she is 128 today, she was given IV fluids here in the ED, she is also noted to have a reduced serum bicarbonate level at 15, she is acidotic on VBG with a pH of 7.28, CT imaging of the head was obtained given her weakness and dizziness and this does not show any evidence of any acute intracranial process. She is not noted to be on any diuretic therapy. Troponin is negative x1, EKG does not show any ischemic changes. Chest x-ray does not show any evidence of any acute abnormalities. Discussed all the above findings with the patient and her daughter at the bedside, at this time I feel that she should be admitted for her generalized weakness, electrolyte abnormalities, and metabolic acidosis. Patient is in agreement as is her daughter. [facility] hospitalist group was consulted for admission and the patient was admitted in stable condition. Diagnosis: 1. Acute hyponatremia 2. Generalized weakness 3. Metabolic acidosis 4. Ambulatory dysfunction Disposition: Admission Reji Escobedo DO Emergency Medicine Past Med/Surg History Medical History (Updated 04/19/21 @ 01:24 by Reji Escobedo DO) Colostomy present Diverticulitis of colon with perforation Diverticulosis GERD (gastroesophageal reflux disease) Hiatal hernia HTN (hypertension) Hypothyroidism Surgical History History of cataract surgery History of colostomy Hx of cholecystectomy Family History Sister Breast cancer Coronary heart disease Brother Coronary heart disease Other Hypertension Social History Smoking Status: Never smoker Hx Alcohol Use: No Hx Substance Use: No Preferred Language: Mongolian Communication Ability: Effective Siding Mechanic Required: No Beliefs That Will Affect Care: None marital status: / Current Living Situation: Alone How many Children do You have: 3 Feels Safe at Home: Yes Assistive Devices: Cane Allergies Allergies Allergy/AdvReac Type Severity Reaction Status Date / Time codeine AdvReac Intermediate NAUSEA, Verified 04/18/21 18:32 VOMITING colchicine AdvReac Intermediate GI side Verified 04/18/21 18:32 effects fentanyl AdvReac Intermediate vomiting Verified 04/18/21 18:32 Home Meds Home Medications Medication Instructions Recorded Confirmed famotidine 40 mg tablet (Pepcid) 40 mg PO BID 05/26/19 04/18/21 levothyroxine 100 mcg tablet 100 mcg PO DAILYBB 05/26/19 04/18/21 metoprolol tartrate 100 mg tablet 100 mg PO HS 05/26/19 04/18/21 (Lopressor) nystatin 100,000 unit/gram topical 1 applic TOPICAL TID PRN 07/18/19 04/18/21 powder (Nystop) pantoprazole 40 mg tablet,delayed 40 mg PO DAILY 07/23/19 04/18/21 release (Protonix) amlodipine 10 mg tablet 10 mg PO DAILY 07/23/20 04/18/21 calcitriol 0.25 mcg capsule 0.25 mcg PO Q OTHER DAY 07/23/20 04/18/21 acetaminophen 500 mg tablet 1,000 mg PO Q8 PRN 04/14/21 04/18/21 [id number] ac 400 1 tab PO DAILY 04/14/21 04/18/21 mcg-calcium carb 500 mg-vit K1 20 mcg tablet ondansetron HCl 4 mg tablet 4 mg PO TID PRN 04/18/21 04/18/21 Results & Data (ED) Vital Signs Vital Signs - 24 hr 04/18/21 17:59 04/18/21 18:54 04/18/21 19:45 Temperature 36.7 C Temperature Source Temporal Artery Scan Pulse Rate 97 H 83 Pulse Rate [Apical] 82 Pulse Rhythm Regular Pulse Strength Normal Respiratory Rate 20 22 18 Respiratory Effort / Characteristics Non-Labored Spontaneous Non-Labored Respiratory Depth Normal Normal Respiratory Pattern Regular Regular Blood Pressure 126/64 117/90 Blood Pressure [Left Arm] 127/67 Blood Pressure Mean 84 99 Blood Pressure Mean [Left Arm] 87 Blood Pressure Position Sitting Pulse Oximetry 93 93 94 Oxygen Delivery Method Room Air Room Air Sepsis Recent Fever Within 48 Hours No Sepsis New/Unexplained Change in Mental Status N/A Sepsis Action Taken by Nursing No Action Required 04/18/21 19:47 04/18/21 20:30 04/18/21 21:30 Temperature Temperature Source Pulse Rate 73 75 Pulse Rate [Apical] Pulse Rhythm Pulse Strength Respiratory Rate 18 18 Respiratory Effort / Characteristics Respiratory Depth Respiratory Pattern Blood Pressure 119/66 104/60 Blood Pressure [Left Arm] Blood Pressure Mean 83 74 Blood Pressure Mean [Left Arm] Blood Pressure Position Pulse Oximetry 94 95 94 Oxygen Delivery Method Room Air Room Air Sepsis Recent Fever Within 48 Hours Sepsis New/Unexplained Change in Mental Status Sepsis Action Taken by Nursing 04/18/21 22:00 04/18/21 23:00 04/18/21 23:30 Temperature Temperature Source Pulse Rate 77 88 79 Pulse Rate [Apical] Pulse Rhythm Pulse Strength Respiratory Rate 20 20 18 Respiratory Effort / Characteristics Respiratory Depth Respiratory Pattern Blood Pressure 116/57 L 130/77 126/56 L Blood Pressure [Left Arm] Blood Pressure Mean 76 94 79 Blood Pressure Mean [Left Arm] Blood Pressure Position Pulse Oximetry 93 95 96 Oxygen Delivery Method Sepsis Recent Fever Within 48 Hours Sepsis New/Unexplained Change in Mental Status Sepsis Action Taken by Nursing 04/19/21 00:00 04/19/21 01:00 Temperature Temperature Source Pulse Rate 93 H 81 Pulse Rate [Apical] Pulse Rhythm Pulse Strength Respiratory Rate 20 18 Respiratory Effort / Characteristics Respiratory Depth Respiratory Pattern Blood Pressure 114/66 136/60 Blood Pressure [Left Arm] Blood Pressure Mean 82 85 Blood Pressure Mean [Left Arm] Blood Pressure Position Pulse Oximetry 94 92 Oxygen Delivery Method Room Air Room Air Sepsis Recent Fever Within 48 Hours Sepsis New/Unexplained Change in Mental Status Sepsis Action Taken by Nursing Laboratory Data Result diagrams: 04/18/21 19:46 04/18/21 19:46 Lab Results 04/18/21 04/18/21 04/18/21 Range/Units 19:46 19:46 19:46 WBC 7.27 (4.8-10.8) K/uL RBC 4.69 (4.2-5.4) M/uL Hgb 14.5 (12.0-16.0) g/dL Hct 41.5 (37-47) % MCV 88.5 (80-100) fL MCH 30.9 (25-34) pg MCHC 34.9 (32-36) g/dL RDW Std Deviation 42.5 (36.4-46.3) fL RDW Coeff of [place]rec[place] 13.2 (11.5-14.5) % Plt Count 286 (130-400) K/uL MPV 10.8 H (7.4-10.4) fL Immature Gran % (Auto) 0.4 % Neut % (Auto) 59.4 % Lymph % (Auto) 28.1 % Brantley % (Auto) 9.6 % Eos % (Auto) 1.9 % Baso % (Auto) 0.6 % Neut # (Auto) 4.32 (1.4-6.5) K/uL Lymph # (Auto) 2.04 (1.2-3.4) K/uL Brantley # (Auto) 0.70 H (0.11-0.59) K/uL Eos # (Auto) 0.14 (0-0.5) K/uL Baso # (Auto) 0.04 (0-0.2) K/uL Immature Gran # (Auto) 0.03 H (0.00-0.02) K/uL PT 10.2 (9.0-12.0) Seconds INR 1.0 (0.9-1.1) VBG pH (7.36-7.41) VBG pCO2 (38-50) mmHg VBG pO2 mmHg VBG HCO3 mmol/L VBG O2 Saturation % VBG Base Excess mEq/L Sodium 128 L (136-145) mmol/L Potassium 4.7 (3.5-5.1) mmol/L Chloride 103 (98-107) mmol/L Carbon Dioxide 15 L (21-32) mmol/L Anion Gap 10 (3-11) BUN 29 H (6-23) mg/dl Creatinine 0.89 (0.6-1.2) mg/dl Est Cr Clr Drug Dosing Not Reportable Est GFR ( Amer) 69.0 ml/min Est GFR (Non-Af Amer) 59.5 ml/min BUN/Creatinine Ratio 32.6 H (10-20) Glucose 77 (70-99(Fasting)) mg/dl Lactate (0.4-2.0) mmol/L Calcium 8.2 L (8.5-10.1) mg/dl Total Bilirubin 0.6 (0.2-1.0) mg/dl AST 36 (13-39) U/L ALT 46 (7-52) U/L Alkaline Phosphatase 95 (34-104) U/L Troponin I < 0.03 (0-0.04) ng/ml Total Protein 6.0 (6.0-8.3) gm/dl Albumin 3.4 (3.4-5.0) gm/dl Globulin 2.6 (2.5-4.0) gm/dl Albumin/Globulin Ratio 1.3 (0.9-2) Lipase 34 (11-82) U/L Urine Color Urine Appearance (Clear) Urine pH (4.5-7.5) Ur Specific [place] (1.000-1.030) Urine Protein (Negative) Urine Glucose (UA) (Negative) Urine Ketones (Negative) Urine Blood (Negative) Urine Nitrite (Negative) Urine Bilirubin (Negative) Urine Urobilinogen (Negative) Ur Leukocyte Esterase (Negative) SARS-CoV-2, RNA, NAAT (NEGATIVE) 04/18/21 04/18/21 04/18/21 Range/Units 19:46 20:27 21:50 WBC (4.8-10.8) K/uL RBC (4.2-5.4) M/uL Hgb (12.0-16.0) g/dL Hct (37-47) % MCV (80-100) fL MCH (25-34) pg MCHC (32-36) g/dL RDW Std Deviation (36.4-46.3) fL RDW Coeff of Grecia (11.5-14.5) % Plt Count (130-400) K/uL MPV (7.4-10.4) fL Immature Gran % (Auto) % Neut % (Auto) % Lymph % (Auto) % Brantley % (Auto) % Eos % (Auto) % Baso % (Auto) % Neut # (Auto) (1.4-6.5) K/uL Lymph # (Auto) (1.2-3.4) K/uL Br[place]ley # (Auto) (0.11-0.59) K/uL Eos # (Auto) (0-0.5) K/uL Baso # (Auto) (0-0.2) K/uL Immature Gran # (Auto) (0.00-0.02) K/uL PT (9.0-12.0) Seconds INR (0.9-1.1) VBG pH (7.36-7.41) VBG pCO2 (38-50) mmHg VBG pO2 mmHg VBG HCO3 mmol/L VBG O2 Saturation % VBG Base Excess mEq/L Sodium (136-145) mmol/L Potassium (3.5-5.1) mmol/L Chloride (98-107) mmol/L Carbon Dioxide (21-32) mmol/L Anion Gap (3-11) BUN (6-23) mg/dl Creatinine (0.6-1.2) mg/dl Est Cr Clr Drug Dosing Est GFR ( Amer) ml/min Est GFR (Non-Af Amer) ml/min BUN/Creatinine Ratio (10-20) Glucose (70-99(Fasting)) mg/dl Lactate 0.6 (0.4-2.0) mmol/L Calcium (8.5-10.1) mg/dl Total Bilirubin (0.2-1.0) mg/dl AST (13-39) U/L ALT (7-52) U/L Alkaline Phosphatase (34-104) U/L Troponin I (0-0.04) ng/ml Total Protein (6.0-8.3) gm/dl Albumin (3.4-5.0) gm/dl Globulin (2.5-4.0) gm/dl Albumin/Globulin Ratio (0.9-2) Lipase (11-82) U/L Urine Color Yellow Urine Appearance Clear (Clear) Urine pH 6.0 (4.5-7.5) Ur Specific [place] 1.007 (1.000-1.030) Urine Protein Negative (Negative) Urine Glucose (UA) Negative (Negative) Urine Ketones Trace H (Negative) Urine Blood Negative (Negative) Urine Nitrite Negative (Negative) Urine Bilirubin Negative (Negative) Urine Urobilinogen Negative (Negative) Ur Leukocyte Esterase Negative (Negative) SARS-CoV-2, RNA, NAAT NEGATIVE (NEGATIVE) 04/18/21 Range/Units 22:54 WBC (4.8-10.8) K/uL RBC (4.2-5.4) M/uL Hgb (12.0-16.0) g/dL Hct (37-47) % MCV (80-100) fL MCH (25-34) pg MCHC (32-36) g/dL RDW Std Deviation (36.4-46.3) fL RDW Coeff of Grecia (11.5-14.5) % Plt Count (130-400) K/uL MPV (7.4-10.4) fL Immature Gran % (Auto) % Neut % (Auto) % Lymph % (Auto) % Brantley % (Auto) % Eos % (Auto) % Baso % (Auto) % Neut # (Auto) (1.4-6.5) K/uL Lymph # (Auto) (1.2-3.4) K/uL [place] # (Auto) (0.11-0.59) K/uL Eos # (Auto) (0-0.5) K/uL Baso # (Auto) (0-0.2) K/uL Immature Gran # (Auto) (0.00-0.02) K/uL PT (9.0-12.0) Seconds INR (0.9-1.1) VBG pH 7.28 L (7.36-7.41) VBG pCO2 37 L (38-50) mmHg VBG pO2 38 mmHg VBG HCO3 17 mmol/L VBG O2 Saturation 67.0 % VBG Base Excess -8.8 mEq/L Sodium (136-145) mmol/L Potassium (3.5-5.1) mmol/L Chloride (98-107) mmol/L Carbon Dioxide (21-32) mmol/L Anion Gap (3-11) BUN (6-23) mg/dl Creatinine (0.6-1.2) mg/dl Est Cr Clr Drug Dosing Est GFR ( Amer) ml/min Est GFR (Non-Af Amer) ml/min BUN/Creatinine Ratio (10-20) Glucose (70-99(Fasting)) mg/dl Lactate (0.4-2.0) mmol/L Calcium (8.5-10.1) mg/dl Total Bilirubin (0.2-1.0) mg/dl AST (13-39) U/L ALT (7-52) U/L Alkaline Phosphatase (34-104) U/L Troponin I (0-0.04) ng/ml Total Protein (6.0-8.3) gm/dl Albumin (3.4-5.0) gm/dl Globulin (2.5-4.0) gm/dl Albumin/Globulin Ratio (0.9-2) Lipase (11-82) U/L Urine Color Urine Appearance (Clear) Urine pH (4.5-7.5) Ur Specific [place] (1.000-1.030) Urine Protein (Negative) Urine Glucose (UA) (Negative) Urine Ketones (Negative) Urine Blood (Negative) Urine Nitrite (Negative) Urine Bilirubin (Negative) Urine Urobilinogen (Negative) Ur Leukocyte Esterase (Negative) SARS-CoV-2, RNA, NAAT (NEGATIVE) Administered Medications Discontinued Medications Sodium Chloride (Nss) 500 mls @ 999 mls/hr IV .Q31M STA Stop: 04/18/21 19:11 Last Infusion: 04/18/21 20:34 Dose: 0 mls/hr Documented by: [id number] Admin: 04/18/21 19:50 Dose: 999 mls/hr Documented by: [id number] Sodium Bicarbonate (Sodium Bicarb 8.4% Inj 50 Meq/50 Ml Syr) 50 meq IV NOW STA Stop: 04/19/21 00:02 Last Admin: 04/19/21 00:15 Dose: 50 meq Documented by: [id number] Imaging Data Radiologist's Impression: Chest X-Ray 04/18/21 18:41 SINGLE VIEW CHEST CLINICAL HISTORY: Generalized weakness. FINDINGS: An AP, portable, upright chest radiograph is compared to study dated 07/23/2019. The cardiomediastinal silhouette is unremarkable noting atherosclerotic calcification of the thoracic aorta. There is chronic elevation of the right hemidiaphragm and bibasilar atelectasis. No airspace consolidation or large pleural effusion is identified. No pneumothorax is seen. The skeletal structures are osteopenic. The bony thorax is grossly intact. Degenerative change is seen throughout the thoracic spine. A right shoulder arthroplasty is in place. IMPRESSION: No active disease in the chest. ACT 112: Negative or not required by law. Electronically signed by: Remigio Lux M.D. 04/18/2021 8:[address] 04/18/21 20:25 CT SCAN OF THE BRAIN WITHOUT IV CONTRAST CLINICAL HISTORY: Change in mental status. Generalized weakness. COMPARISON STUDY: CT of the brain dated 07/23/2020. TECHNIQUE: Unenhanced axial CT scan of the brain is performed from the vertex to the skull base. A dose lowering technique was utilized adhering to the principles of ALARA. CT DOSE: 537.48 mGy.cm FINDINGS: Brain parenchyma: There are age-related involutional changes noting mild subcortical and periventricular microangiopathic change. There is no hemorrhage, mass effect, or evidence of acute territorial ischemia by CT criteria. Sanders- white matter differentiation is preserved. No extra-axial fluid collection is seen. Ventricles, sulci, cisterns: Prominent secondary to involutional change. Intracranial vasculature: There is atherosclerotic calcification of the cavernous carotid and vertebral arteries. Calvarium: Unremarkable. Sinuses and mastoids: The visualized paranasal sinuses are clear. The mastoid air cells are well pneumatized. Orbits: The bony orbits are grossly intact. There are bilateral ocular lens implants. IMPRESSION: There is no hemorrhage, mass effect, or evidence of acute territorial ischemia by CT criteria. ACT 112: Negative or not required by law. Electronically signed by: Remigio Lux M.D. 04/18/2021 8:56 PM Discharge Plan Visit Data Chief Complaint: Weakness Stated Complaint: WEAKNESS, DEHYDRATED, HERE ON 04/13 ED Provider: Reji Escobedo Discharge Problem: Acute hyponatremia Discharge Instructions Interventions: ED Discharge Assessment Last Done: 04/19/21 01:11 Forms Stand Alone Forms: My [facility] Prescriptions Prescriptions: No Action nystatin [Nystop] 100,000 unit/gram powder 1 applic TOPICAL TID PRN (Reason: RASH UNDER BREASTS) RF: 0 metoprolol tartrate [Lopressor] 100 mg tablet 100 mg PO HS RF: 0 famotidine [Pepcid] 40 mg tablet 40 mg PO BID RF: 0 levothyroxine 100 mcg tablet 100 mcg PO DAILYBB RF: 0 pantoprazole [Protonix] 40 mg Tablet,Delayed Release (Dr/Ec) 40 mg PO DAILY RF: 0 amlodipine 10 mg tablet 10 mg PO DAILY RF: 0 calcitriol 0.25 mcg capsule 0.25 mcg PO Q OTHER DAY RF: 0 One-A-Day Women's 50 Plus 400 mcg-500 mg calcium-20 mcg Tablet 1 tab PO DAILY RF: 0 acetaminophen 500 mg tablet 1,000 mg PO Q8 PRN (Reason: Pain) RF: 0 ondansetron HCl 4 mg tablet 4 mg PO TID PRN (Reason: Nausea) RF: 0 Referrals Referrals: Nahid Nicholas [Primary Care Provider] -
[2021-04-18 19:53] LABS: Basophils # (auto) 0.04 K/uL (0-0.2); Basophils % (auto) 0.6 %; Eosinophils # (auto) 0.14 K/uL (0-0.5); Eosinophils % (auto) 1.9 %; Hematocrit (blood only) 41.5 % (37-47); Hemoglobin 14.5 g/dL (12.0-16.0); Immature Granulocytes # (auto) 0.03 K/uL (0.00-0.02); Immature Granulocytes % (auto) 0.4 %; Lymphocytes # (auto) 2.04 K/uL (1.2-3.4); Lymphocytes % (auto) 28.1 %; Mean Corpuscular Hemoglobin 30.9 pg (25-34); Mean Corpuscular Hgb Conc 34.9 g/dL (32-36); Mean Corpuscular Volume 88.5 fL (80-100); Mean Platelet Volume 10.8 fL (7.4-10.4); Monocytes % (auto) 9.6 %; Neutrophils # (auto) 4.32 K/uL (1.4-6.5); Neutrophils % (auto) 59.4 %; Platelet Count 286 K/uL (130-400); RDW Coefficient of Variation 13.2 % (11.5-14.5); RDW Standard Deviation 42.5 fL (36.4-46.3); Red Blood Count 4.69 M/uL (4.2-5.4); White Blood Count 7.27 K/uL (4.8-10.8)
[2021-04-18 20:14] LABS: Prothrombin Time 10.2 Seconds (9.0-12.0)
[2021-04-18 20:15] LABS: Troponin I < 0.03 ng/ml (0-0.04)
--- NOTE | 2021-04-18 20:15 | XRay Report ---
SINGLE VIEW CHEST CLINICAL HISTORY: Generalized weakness. FINDINGS: An AP, portable, upright chest radiograph is compared to study dated 07/23/2019. The cardiom ediastinal silhouette is unremarkable noting atherosclerotic calcification of the thoracic aorta. The re is chronic elevation of the right hemidiaphragm and bibasilar atelectasis. No airspace consolidati on or large pleural effusion is identified. No pneumothorax is seen. The skeletal structures are oste openic. The bony thorax is grossly intact. Degenerative change is seen throughout the thoracic spine. A right shoulder arthroplasty is in place. IMPRESSION: No active disease in the chest. ACT 112: Negative or not required by law. Electronically signed by: Remigio Lux M.D. 04/18/2021 8:13 PM
[2021-04-18 20:16] LABS: Alanine Aminotransferase 46 U/L (7-52); Albumin Globulin Ratio 1.3 (0.9-2); Albumin Level 3.4 gm/dl (3.4-5.0); Alkaline Phosphatase 95 U/L (34-104); Anion Gap 10 (3-11); Aspartate Aminotransferase 36 U/L (13-39); BUN Creatinine Ratio 32.6 (10-20); Bilirubin,Total 0.6 mg/dl (0.2-1.0); Blood Urea Nitrogen 29 mg/dl (6-23); Calcium 8.2 mg/dl (8.5-10.1); Carbon Dioxide 15 mmol/L (21-32); Chloride 103 mmol/L (98-107); Est GFR (Non-African American) 59.5 ml/min; Globulin 2.6 gm/dl (2.5-4.0); Glucose 77 mg/dl (70-99(Fasting)); Lipase 34 U/L (11-82); Potassium 4.7 mmol/L (3.5-5.1); Sodium 128 mmol/L (136-145)
[2021-04-18 20:33] LABS: Appearance Urine Clear (Clear); Bilirubin Urine Negative (Negative); Blood Urine Negative (Negative); Color Urine Yellow; Glucose Urine UA Negative (Negative); Ketones Urine Trace (Negative); Leukocyte Esterase Urine Negative (Negative); Nitrite Urine Negative (Negative); Protein Urine Negative (Negative); Specific Gravity Urine 1.007 (1.000-1.030); Urobilinogen Urine Negative (Negative)
--- NOTE | 2021-04-18 20:57 | CT Scan Report ---
CT SCAN OF THE BRAIN WITHOUT IV CONTRAST CLINICAL HISTORY: Change in mental status. Generalized weakness. COMPARISON STUDY: CT of the brain dated 07/23/2020. TECHNIQUE: Unenhanced axial CT scan of the brain is performed from the vertex to the skull base. A do se lowering technique was utilized adhering to the principles of ALARA. CT DOSE: 537.48 mGy.cm FINDINGS: Brain parenchyma: There are age-related involutional changes noting mild subcortical and periventric ular microangiopathic change. There is no hemorrhage, mass effect, or evidence of acute territorial i schemia by CT criteria. Sanders-white matter differentiation is preserved. No extra-axial fluid collecti on is seen. Ventricles, sulci, cisterns: Prominent secondary to involutional change. Intracranial vasculature: There is atherosclerotic calcification of the cavernous carotid and vertebr al arteries. Calvarium: Unremarkable. Sinuses and mastoids: The visualized paranasal sinuses are clear. The mastoid air cells are well pneu matized. Orbits: The bony orbits are grossly intact. There are bilateral ocular lens implants. IMPRESSION: There is no hemorrhage, mass effect, or evidence of acute territorial ischemia by CT crit ronan. ACT 112: Negative or not required by law. Electronically signed by: Remigio Lux M.D. 04/18/2021 8:56 PM
[2021-04-18 23:14] LABS: Base Excess VBG -8.8 mEq/L; HCO3 VBG 17 mmol/L; PCO2 VBG 37 mmHg (38-50); PO2 VBG 38 mmHg; pH VBG 7.28 (7.36-7.41)
[2021-04-19] MEDS ORDERED: SODIUM BICARB 8.4% INJ 50 MEQ/50 ML SYR IV STA (00:01)
[2021-04-19] MEDS ORDERED: D5W AND 1/2NSS 1,000 ML IV SCH (00:15)
[2021-04-19] MEDS ORDERED: NITROGLYCERIN SL 0.4 MG/TAB TAB SL PRN (01:43)
[2021-04-19] MEDS ORDERED: NYSTATIN POWDER 15GM BTL EXT PRN (01:43)
[2021-04-19] MEDS ORDERED: ONDANSETRON INJ 2 MG/ML 2 ML VIAL IV PRN (01:43)
[2021-04-19] MEDS: D5W AND NSS 1,000 ML IV SCH ×2 (02:08→15:12)
--- NOTE | 2021-04-19 02:32 | History and Physical Report ---
DATE OF ADMISSION: 04/19/2021. CHIEF COMPLAINT: Weakness, increased colostomy output. HISTORY OF PRESENT ILLNESS: This 85-year-old female with past medical history significant for hypothyroidism, history of reflux esophagitis, iron deficiency anemia, diverticulitis, status post colostomy, presents with ongoing nausea, vomiting and increased colostomy output. It is going on for a few days, she was in the ER on 04/14/2021, did fine and sent home, but she was still not able to eat much, feeling weak. She lives alone, ambulates with a cane, as not getting better, she came back to the hospital. Currently, resting comfortably and hemodynamically stable. Her CO2 is 15. Sodium is 128, so is referred for admission. Currently, denies any headache. No dizziness, no blurred visions, no earache, no runny nose, no sore throat. Occasional cough. No difficulty swallowing. No chest pain, no shortness of breath, no abdominal pain. Normal bladder movements. No swelling in the legs. Ambulating okay, but slowly. ALLERGIES: CODEINE, COLCHICINE, FENTANYL. PAST MEDICAL HISTORY: As mentioned above. PAST SURGICAL HISTORY: Colonoscopy, EGD, total removal of thyroid lobe, cholecystectomy, tonsillectomy and adenoidectomy. MEDICATIONS: The patient is on Tylenol 1000 mg p.o. q. 8 hours p.r.n., amlodipine 10 mg p.o. daily, calcitriol 0.25 mcg p.o. daily, famotidine 40 mg p.o. b.i.d., levothyroxine 100 mcg p.o. daily, metoprolol tartrate 100 mg p.o. at bedtime, Women's 50+ 1 tablet p.o. daily, nystatin topical t.i.d. p.r.n., Zofran 4 mg p.o. t.i.d. p.r.n., Protonix 40 mg p.o. daily. FAMILY HISTORY: Significant for sister has breast cancer, brother has DC, sister has DC, mother has hypertension; mother has depression. SOCIAL HISTORY: , lives alone. No smoking, no alcohol, no drug use. REVIEW OF SYSTEMS: As per HPI. Rest of review of systems negative. PHYSICAL EXAMINATION: GENERAL: The patient is old and frail, not in acute distress. VITAL SIGNS: Temperature 36.7, pulse 79, respiratory rate 18, blood pressure 126/56, oxygen 96% on room air. HEENT: Pupils equal, round and reactive to light. Oral mucosa moist. NECK: No JVD, no neck masses. CARDIOVASCULAR: S1 and S2 heard. Regular rate and rhythm. No murmur, no gallop. RESPIRATORY SYSTEM: Normal AP diameter. No accessory muscle use. No wheezing, no crackles. ABDOMEN: Soft, bowel sounds present. Colostomy bag seen. Nontender, no distention. CENTRAL NERVOUS SYSTEM: Cranial nerves grossly intact, nonfocal. EXTREMITIES: No edema, no erythema. LABORATORY DATA: WBC 7.2, hemoglobin 14.5, hematocrit 41.5, platelets 286. PT 10.2, INR 1. Venous blood gas shows pH of 7.28, pCO2 of 37, pO2 38, bicarbonate 17, sodium 128, potassium 4.7, chloride 103, bicarbonate 15, BUN 29, creatinine 0.8, serum glucose 77. Lactate 0.6, calcium 8.2, total bilirubin 0.6, AST 36, ALT 46, alkaline phosphatase 95. Troponin I less than 0.03. Lipase 34. Urinalysis negative. SARS-CoV-[address] of the head, no acute findings. Chest x-ray, no acute findings. EKG: Normal sinus rhythm, rate of 76, right bundle-branch block, no significant change was found. ASSESSMENT AND PLAN: This 85-year-old female presents with ongoing nausea or vomiting and increased colostomy output and weakness and found to have hyponatremia and metabolic acidosis. 1. Nausea, vomiting, with increased colostomy output, says it is getting better, but she has metabolic abnormalities with hyponatremia and metabolic acidosis. We will give 1 amp of sodium bicarbonate. Place her on D5 normal saline at 75 mL per hour and watch the sodium levels and follow the repeat labs in the a.m. As the patient is feeling better, we will put on clear liquid diet and follow the repeat labs. If any concern, we will consult GI and nephrology. Closely monitor on [facility]. 2. History of hypothyroidism: Continue Synthroid. 3. Gastroesophageal reflux disease: Continue Pepcid. 4. Hypertension: Continue amlodipine and metoprolol. 5. Deep venous thrombosis prophylaxis: Place on heparin subcutaneously. DISPOSITION: Admit to [facility]. PT/OT prior to discharge. Social service to help with discharge planning. Level 1 full code. Job ID: [id number] [facility]
[2021-04-19] MEDS: LEVOTHYROXINE SODIUM 100 MCG TABLET PO SCH (04:45)
[2021-04-19] MEDS: ACETAMINOPHEN 325 MG TAB PO PRN (04:45)
[2021-04-19 07:22] LABS: Basophils # (auto) 0.05 K/uL (0-0.2); Basophils % (auto) 0.8 %; Eosinophils # (auto) 0.14 K/uL (0-0.5); Eosinophils % (auto) 2.2 %; Hematocrit (blood only) 37.8 % (37-47); Hemoglobin 12.8 g/dL (12.0-16.0); Immature Granulocytes # (auto) 0.02 K/uL (0.00-0.02); Immature Granulocytes % (auto) 0.3 %; Lymphocytes # (auto) 1.92 K/uL (1.2-3.4); Mean Corpuscular Hemoglobin 29.6 pg (25-34); Mean Corpuscular Hgb Conc 33.9 g/dL (32-36); Mean Corpuscular Volume 87.5 fL (80-100); Mean Platelet Volume 10.4 fL (7.4-10.4); Monocytes # (auto) 0.55 K/uL (0.11-0.59); Monocytes % (auto) 8.6 %; Neutrophils # (auto) 3.71 K/uL (1.4-6.5); Neutrophils % (auto) 58.1 %; Platelet Count 258 K/uL (130-400); RDW Standard Deviation 42.1 fL (36.4-46.3); Red Blood Count 4.32 M/uL (4.2-5.4); White Blood Count 6.39 K/uL (4.8-10.8)
[2021-04-19] MEDS: HEPARIN SOD 5,000 UNIT/0.5 ML VIAL SQ SCH ×2 (08:06→20:46)
[2021-04-19] MEDS: PANTOprazole 40 MG TAB PO SCH (08:06)
[2021-04-19] MEDS: CEROVITE ADV FORMULA TAB PO SCH (08:06)
[2021-04-19] MEDS: FAMOTIDINE 40 MG TABLET PO SCH ×2 (08:06→20:46)
[2021-04-19] MEDS: amLODIPine BESYLATE 5 MG TAB PO SCH (08:07)
[2021-04-19 08:13] LABS: BUN Creatinine Ratio 30.1 (10-20); Calcium 7.5 mg/dl (8.5-10.1); Creatinine Clr Calc Pharmacy 43.5 ml/min; Est GFR (African American) 75.1 ml/min; Est GFR (Non-African American) 64.8 ml/min; Magnesium 1.8 mg/dl (1.7-2.4)
--- NOTE | 2021-04-19 11:18 | Electrocardiogram Report ---
Test Reason : Blood Pressure : / mmHG Vent. Rate : 076 BPM Atrial Rate : 076 BPM P-R Int : 192 ms QRS Dur : 132 ms QT Int : 418 ms P-R-T Axes : 013 -14 -11 degrees QTc Int : 470 ms Normal sinus rhythm Right bundle branch block Minimal voltage criteria for LVH, may be normal variant Abnormal ECG When compared with ECG of 14-APR-2021 16:17, No significant change was found Confirmed by Aston Hope ([id number]) on 04/19/2021 11:18:14 AM Referred By: REFERRED SELF Confirmed By:Aston Hope
--- NOTE | 2021-04-19 14:57 | Hospitalist Progress Note ---
Date of Service April 19, 2021 Assessment & Plan (1) Gastroenteritis: Plan: Complaining of epigastric discomfort with nausea vomiting excessive watery election for the last 2 or 3 days No fever and no chills and no one else is affected Has had recent ER visit with fluid administration but the condition did not improve Likely has gastroenteritis and seems to be better since admission this time (2) Nausea vomiting and diarrhea: Plan: Secondary to acute gastroenteritis with increasing watery collection in the colostomy (3) Acute hyponatremia: Plan: Noted to be hyponatremic likely due to electrolyte loss through nausea vomiting and also diarrhea Has been getting intravenous fluid and sodium level has been improving (4) Colostomy present: Plan: The colostomy site seems to be intact as of today with formed stool (5) Hypothyroidism: Plan: Continue supplement (6) HTN (hypertension): Plan: Remains stable Plan: DVT prophylaxis Subcu heparin CODE STATUS Full Admission and Anticipated Discharge Date Admission Date: April 19, 2021 Subjective 04/19/2021 The patient was seen and examined in medical telemetry unit She was admitted with possible gastroenteritis and the condition has been improving since admission Denies any more nausea, vomiting, abdominal distention or watery collection in the colostomy bag Denies any other symptoms Review of Systems Review of Systems: All systems reviewed and are unremarkable except as noted below Physical Exam Physical Exam: Lying in bed comfortably Constitutional: average body habitus; not ill appearing Eyes: PERRL, conjunctivae normal, anicteric sclerae ENMT: external ear and nose normal, oropharynx normal Neck: trachea midline, no thyromegaly Respiratory: no respiratory distress Auscultation: lungs clear to auscultation bilaterally Cardiovascular: Rate/Rhythm: regular rate and regular rhythm; not tachycardic Heart Sounds: normal S1 and normal S2; no murmur Extremities: no edema Gastrointestinal (Abdomen): Inspection/Auscultation: + abdomen abnormal to inspection (Has left lower quadrant colostomy with colostomy bag) and abdomen not distended Musculoskeletal: No acute arthritis in any joint Neurologic: Alert, awake and oriented x3. No focal sensory or motor deficit appreciated Results & Data Results & Data ([facility]) Vital Signs (Past 12 Hours) Vital Signs Temp Pulse Pulse Resp BP Pulse Ox 04/19/21 12:38 36.7 C 81 18 128/76 93 04/19/21 07:36 69 04/19/21 07:15 36.6 C 72 18 127/80 95 Laboratory Results Current Inpatient Medications Acetaminophen (Acetaminophen 325 Mg Tab) 650 mg PO Q4H PRN PRN Reason: Pain or Fever Stop: 05/19/21 01:42 Last Admin: 04/19/21 04:45 Dose: 650 mg Documented by: Amlodipine Besylate (Amlodipine Besylate 5 Mg Tab) 10 mg PO DAILY FUAD Stop: 05/19/21 08:59 Last Admin: 04/19/21 08:07 Dose: 10 mg Documented by: Calcitriol (Calcitriol 0.25 Mcg Capsule) 0.25 mcg PO Q48H FUAD Stop: 05/20/21 08:59 Famotidine (Famotidine 40 Mg Tablet) 40 mg PO BID FUAD Stop: 05/19/21 08:59 Last Admin: 04/19/21 08:06 Dose: 40 mg Documented by: Heparin Sodium (Porcine) (Heparin Sod 5,000 Unit/0.5 Ml Vial) 5,000 units SQ Q12 FUAD Stop: 05/19/21 08:59 Last Admin: 04/19/21 08:06 Dose: 5,000 units Documented by: Dextrose/Sodium Chloride (D5w And Nss) 1,000 mls @ 75 mls/hr IV .[id number] [facility] Stop: 05/19/21 00:14 Last Admin: 04/19/21 02:08 Dose: 75 mls/hr Documented by: Levothyroxine Sodium (Levothyroxine Sodium 100 Mcg Tablet) 100 mcg PO DAILYBB [facility] Stop: 05/19/21 06:29 Last Admin: 04/19/21 04:45 Dose: 100 mcg Documented by: Metoprolol Tartrate (Metoprolol Tartrate 100 Mg Tab) 100 mg PO HS [facility] Stop: 05/19/21 20:59 Multivitamins/Minerals (Cerovite Adv Formula Tab) 1 tab PO DAILY FUAD Stop: 05/19/21 08:59 Last Admin: 04/19/21 08:06 Dose: 1 tab Documented by: Nitroglycerin (Nitroglycerin Sl 0.4 Mg/Tab Tab) 0.4 mg SL UD PRN PRN Reason: Chest Pain Stop: 05/19/21 01:42 Nystatin (Nystatin Powder 15gm Btl) 1 appln EXT TID PRN PRN Reason: RASH UNDER BREASTS Stop: 05/19/21 01:42 Ondansetron HCl (Ondansetron Inj 2 Mg/Ml 2 Ml Vial) 4 mg IV Q6H PRN PRN Reason: Nausea Stop: 05/19/21 01:42 Pantoprazole Sodium (Pantoprazole 40 Mg Tab) 40 mg PO DAILY FUAD Stop: 05/19/21 08:59 Last Admin: 04/19/21 08:06 Dose: 40 mg Documented by: Medications Administered Current Inpatient Medications Acetaminophen (Acetaminophen 325 Mg Tab) 650 mg PO Q4H PRN PRN Reason: Pain or Fever Stop: 05/19/21 01:42 Last Admin: 04/19/21 04:45 Dose: 650 mg Documented by: Amlodipine Besylate (Amlodipine Besylate 5 Mg Tab) 10 mg PO DAILY FUAD Stop: 05/19/21 08:59 Last Admin: 04/19/21 08:07 Dose: 10 mg Documented by: Calcitriol (Calcitriol 0.25 Mcg Capsule) 0.25 mcg PO Q48H FUAD Stop: 05/20/21 08:59 Famotidine (Famotidine 40 Mg Tablet) 40 mg PO BID FUAD Stop: 05/19/21 08:59 Last Admin: 04/19/21 08:06 Dose: 40 mg Documented by: Heparin Sodium (Porcine) (Heparin Sod 5,000 Unit/0.5 Ml Vial) 5,000 units SQ Q12 FUAD Stop: 05/19/21 08:59 Last Admin: 04/19/21 08:06 Dose: 5,000 units Documented by: Dextrose/Sodium Chloride (D5w And Nss) 1,000 mls @ 75 mls/hr IV .[id number] FUAD Stop: 05/19/21 00:14 Last Admin: 04/19/21 02:08 Dose: 75 mls/hr Documented by: Levothyroxine Sodium (Levothyroxine Sodium 100 Mcg Tablet) 100 mcg PO DAILYBB FUAD Stop: 05/19/21 06:29 Last Admin: 04/19/21 04:45 Dose: 100 mcg Documented by: Metoprolol Tartrate (Metoprolol Tartrate 100 Mg Tab) 100 mg PO HS FUAD Stop: 05/19/21 20:59 Multivitamins/Minerals (Cerovite Adv Formula Tab) 1 tab PO DAILY FUAD Stop: 05/19/21 08:59 Last Admin: 04/19/21 08:06 Dose: 1 tab Documented by: Nitroglycerin (Nitroglycerin Sl 0.4 Mg/Tab Tab) 0.4 mg SL UD PRN PRN Reason: Chest Pain Stop: 05/19/21 01:42 Nystatin (Nystatin Powder 15gm Btl) 1 appln EXT TID PRN PRN Reason: RASH UNDER BREASTS Stop: 05/19/21 01:42 Ondansetron HCl (Ondansetron Inj 2 Mg/Ml 2 Ml Vial) 4 mg IV Q6H PRN PRN Reason: Nausea Stop: 05/19/21 01:42 Pantoprazole Sodium (Pantoprazole 40 Mg Tab) 40 mg PO DAILY FUAD Stop: 05/19/21 08:59 Last Admin: 04/19/21 08:06 Dose: 40 mg Documented by:
[2021-04-19] MEDS ORDERED: METOPROLOL TARTRATE 100 MG TAB PO SCH (21:00)
[2021-04-20] MEDS: ACETAMINOPHEN 325 MG TAB PO PRN (02:06)
[2021-04-20] MEDS ORDERED: Nursing to Pharmacy Communication SCH (05:00)
[2021-04-20] MEDS: D5W AND NSS 1,000 ML IV SCH (06:00)
[2021-04-20] MEDS: LEVOTHYROXINE SODIUM 100 MCG TABLET PO SCH (06:01)
[2021-04-20 06:18] LABS: Basophils # (auto) 0.05 K/uL (0-0.2); Basophils % (auto) 0.7 %; Eosinophils # (auto) 0.26 K/uL (0-0.5); Eosinophils % (auto) 3.7 %; Hematocrit (blood only) 36.8 % (37-47); Hemoglobin 12.3 g/dL (12.0-16.0); Immature Granulocytes # (auto) 0.04 K/uL (0.00-0.02); Immature Granulocytes % (auto) 0.6 %; Lymphocytes # (auto) 2.94 K/uL (1.2-3.4); Lymphocytes % (auto) 41.5 %; Mean Corpuscular Hemoglobin 29.9 pg (25-34); Mean Corpuscular Hgb Conc 33.4 g/dL (32-36); Mean Corpuscular Volume 89.5 fL (80-100); Mean Platelet Volume 10.5 fL (7.4-10.4); Monocytes # (auto) 0.68 K/uL (0.11-0.59); Monocytes % (auto) 9.6 %; Neutrophils # (auto) 3.11 K/uL (1.4-6.5); Neutrophils % (auto) 43.9 %; Platelet Count 293 K/uL (130-400); RDW Coefficient of Variation 13.4 % (11.5-14.5); RDW Standard Deviation 43.4 fL (36.4-46.3); Red Blood Count 4.11 M/uL (4.2-5.4); White Blood Count 7.08 K/uL (4.8-10.8)
[2021-04-20 06:40] LABS: BUN Creatinine Ratio 19.5 (10-20); Calcium 7.5 mg/dl (8.5-10.1); Creatinine Clr Calc Pharmacy 46.9 ml/min; Est GFR (African American) 82.2 ml/min; Est GFR (Non-African American) 70.9 ml/min; Magnesium 1.6 mg/dl (1.7-2.4); Phosphorus 2.1 mg/dl (2.5-4.9); Potassium 3.8 mmol/L (3.5-5.1)
[2021-04-20] MEDS: CEROVITE ADV FORMULA TAB PO SCH (08:14)
[2021-04-20] MEDS: amLODIPine BESYLATE 5 MG TAB PO SCH (08:14)
[2021-04-20] MEDS: FAMOTIDINE 40 MG TABLET PO SCH (08:14)
[2021-04-20] MEDS: PANTOprazole 40 MG TAB PO SCH (08:14)
[2021-04-20] MEDS: HEPARIN SOD 5,000 UNIT/0.5 ML VIAL SQ SCH (08:15)
[2021-04-20] MEDS ORDERED: CALCITRIOL 0.25 MCG CAPSULE PO SCH (09:00)
[2021-04-20] MEDS ORDERED: MAGNESIUM OXIDE 400 MG TAB PO SCH (09:30)
[2021-04-20] MEDS ORDERED: POT PHOSPHATE MONOBASIC W/ SOD TAB PO SCH (09:30)
--- NOTE | 2021-04-20 11:48 | Hospitalist Progress Note ---
Date of Service April 20, 2021 Assessment & Plan (1) Gastroenteritis: Plan: Complaining of epigastric discomfort with nausea vomiting excessive watery election for the last 2 or 3 days No fever and no chills and no one else is affected Has had recent ER visit with fluid administration but the condition did not improve Likely has gastroenteritis and seems to be better since admission this time Denies any more abdominal symptoms, no nausea and or vomiting Drainage from colostomy has been formed (2) Nausea vomiting and diarrhea: Plan: Secondary to acute gastroenteritis with increasing watery collection in the colostomy No more nausea and/or vomiting (3) Acute hyponatremia: Plan: Noted to be hyponatremic likely due to electrolyte loss through nausea vomiting and also diarrhea Has been getting intravenous fluid and sodium level has been improving Electrolytes have improved a lot She will be going home this afternoon (4) Colostomy present: Plan: The colostomy site seems to be intact as of today with formed stool (5) Hypothyroidism: Plan: Continue supplement (6) HTN (hypertension): Plan: Remains stable Plan: DVT prophylaxis Subcu heparin CODE STATUS Full We will get PT evaluation before discharging this afternoon Admission and Anticipated Discharge Date Admission Date: April 19, 2021 Subjective 04/19/2021 The patient was seen and examined in medical telemetry unit She was admitted with possible gastroenteritis and the condition has been improving since admission Denies any more nausea, vomiting, abdominal distention or watery collection in the colostomy bag Denies any other symptoms 04/20/2021 The patient was seen and examined in medical telemetry unit She has been feeling much better and denies any abdominal discomfort, nausea and or vomiting Her colostomy drain is has been formed She will be discharged home this afternoon Review of Systems Review of Systems: All systems reviewed and are unremarkable except as noted below Gastrointestinal: No more nausea, vomiting or diarrhea Physical Exam Physical Exam: Lying in bed comfortably Constitutional: average body habitus; not ill appearing Eyes: PERRL, conjunctivae normal, anicteric sclerae ENMT: external ear and nose normal, oropharynx normal Neck: trachea midline, no thyromegaly Respiratory: no respiratory distress Auscultation: lungs clear to auscultation bilaterally Cardiovascular: Rate/Rhythm: regular rate and regular rhythm; not tachycardic Heart Sounds: normal S1 and normal S2; no murmur Extremities: no edema Gastrointestinal (Abdomen): Inspection/Auscultation: + abdomen abnormal to inspection (Has left lower quadrant colostomy with colostomy bag) and abdomen not distended Musculoskeletal: No acute arthritis in any joint Neurologic: Alert, awake and oriented x3 Results & Data Results & Data ([facility]) Vital Signs (Past 12 Hours) Vital Signs Temp Pulse Pulse Resp BP Pulse Ox 04/20/21 11:09 36.8 C 75 18 131/79 96 04/20/21 07:53 36.3 C L 62 20 130/75 97 04/20/21 07:27 67 04/20/21 03:55 36.7 C 77 20 122/72 95 04/20/21 02:37 64 Laboratory Results Short CBC 04/20/21 Range/Units 05:56 WBC 7.08 (4.8-10.8) K/uL Hgb 12.3 (12.0-16.0) g/dL Hct 36.8 L (37-47) % Plt Count 293 (130-400) K/uL BMP 04/20/21 05:56 Sodium 138 Potassium 3.8 Chloride 110 H Carbon Dioxide 24 BUN 15 Creatinine 0.77 Glucose 85 Calcium 7.5 L Medications Administered Current Inpatient Medications Acetaminophen (Acetaminophen 325 Mg Tab) 650 mg PO Q4H PRN PRN Reason: Pain or Fever Stop: 05/19/21 01:42 Last Admin: 04/20/21 02:06 Dose: 650 mg Documented by: Amlodipine Besylate (Amlodipine Besylate 5 Mg Tab) 10 mg PO DAILY FUAD Stop: 05/19/21 08:59 Last Admin: 04/20/21 08:14 Dose: 10 mg Documented by: Calcitriol (Calcitriol 0.25 Mcg Capsule) 0.25 mcg PO Q48H FUAD Stop: 05/20/21 08:59 Last Admin: 04/20/21 08:14 Dose: 0.25 mcg Documented by: Famotidine (Famotidine 40 Mg Tablet) 40 mg PO BID FUAD Stop: 05/19/21 08:59 Last Admin: 04/20/21 08:14 Dose: 40 mg Documented by: Heparin Sodium (Porcine) (Heparin Sod 5,000 Unit/0.5 Ml Vial) 5,000 units SQ Q12 FUAD Stop: 05/19/21 08:59 Last Admin: 04/20/21 08:15 Dose: 5,000 units Documented by: Dextrose/Sodium Chloride (D5w And Nss) 1,000 mls @ 75 mls/hr IV .[id number] [facility] Stop: 05/19/21 00:14 Last Infusion: 04/20/21 06:40 Dose: 0 mls/hr Documented by: Levothyroxine Sodium (Levothyroxine Sodium 100 Mcg Tablet) 100 mcg PO DAILYBB [facility] Stop: 05/19/21 06:29 Last Admin: 04/20/21 06:01 Dose: 100 mcg Documented by: Magnesium Oxide (Magnesium Oxide 400 Mg Tab) 400 mg PO BID FUAD Stop: 05/20/21 09:29 Last Admin: 04/20/21 10:26 Dose: 400 mg Documented by: Metoprolol Tartrate (Metoprolol Tartrate 100 Mg Tab) 100 mg PO HS [facility] Stop: 05/19/21 20:59 Last Admin: 04/19/21 20:46 Dose: 100 mg Documented by: Multivitamins/Minerals (Cerovite Adv Formula Tab) 1 tab PO DAILY [facility] Stop: 05/19/21 08:59 Last Admin: 04/20/21 08:14 Dose: 1 tab Documented by: Nitroglycerin (Nitroglycerin Sl 0.4 Mg/Tab Tab) 0.4 mg SL UD PRN PRN Reason: Chest Pain Stop: 05/19/21 01:42 Nystatin (Nystatin Powder 15gm Btl) 1 appln EXT TID PRN PRN Reason: RASH UNDER BREASTS Stop: 05/19/21 01:42 Ondansetron HCl (Ondansetron Inj 2 Mg/Ml 2 Ml Vial) 4 mg IV Q6H PRN PRN Reason: Nausea Stop: 05/19/21 01:42 Pantoprazole Sodium (Pantoprazole 40 Mg Tab) 40 mg PO DAILY [facility] Stop: 05/19/21 08:59 Last Admin: 04/20/21 08:14 Dose: 40 mg Documented by: Potassium Phosphate (Pot Phosphate Monobasic W/ Sod Tab) 2 tab PO BID [facility] Stop: 05/20/21 09:29 Last Admin: 04/20/21 10:26 Dose: 2 tab Documented by:
--- NOTE | 2021-04-20 16:11 | Communication Note ---
Date of Service: April 20, 2021 By CMS guidelines, a determination that the admission or continued stay is not medically necessary has been made by a member of the UR committee and a physician for this hospital stay, therefore a Code 44 will be completed and the Inpatient admission will be changed to outpatient. Jez Greco MD Member, Utilization Review Committee
--- NOTE | 2021-04-21 09:25 | Discharge Summary ---
Date of Service April 21, 2021 Admission HPI Per Admitting Provider DICTATED BY:Estiven Leary MD DATE OF ADMISSION: 04/19/2021. CHIEF COMPLAINT: Weakness, increased colostomy output. HISTORY OF PRESENT ILLNESS: This 85-year-old female with past medical history significant for hypothyroidism, history of reflux esophagitis, iron deficiency anemia, diverticulitis, status post colostomy, presents with ongoing nausea, vomiting and increased colostomy output. It is going on for a few days, she was in the ER on 04/14/2021, did fine and sent home, but she was still not able to eat much, feeling weak. She lives alone, ambulates with a cane, as not getting better, she came back to the hospital. Currently, resting comfortably and hemodynamically stable. Her CO2 is 15. Sodium is 128, so is referred for admission. Currently, denies any headache. No dizziness, no blurred visions, no earache, no runny nose, no sore throat. Occasional cough. No difficulty swallowing. No chest pain, no shortness of breath, no abdominal pain. Normal bladder movements. No swelling in the legs. Ambulating okay, but slowly. Admission Exam Per Admitting Provider GENERAL: The patient is old and frail, not in acute distress. VITAL SIGNS: Temperature 36.7, pulse 79, respiratory rate 18, blood pressure 126/56, oxygen 96% on room air. HEENT: Pupils equal, round and reactive to light. Oral mucosa moist. NECK: No JVD, no neck masses. CARDIOVASCULAR: S1 and S2 heard. Regular rate and rhythm. No murmur, no gallop. RESPIRATORY SYSTEM: Normal AP diameter. No accessory muscle use. No wheezing, no crackles. ABDOMEN: Soft, bowel sounds present. Colostomy bag seen. Nontender, no distention. CENTRAL NERVOUS SYSTEM: Cranial nerves grossly intact, nonfocal. EXTREMITIES: No edema, no erythema. Principal Diagnosis Acute gastroenteritis, electrolyte imbalance, colostomy status, hypertension Discharge Exam Lying in bed comfortably Constitutional average body habitus; not ill appearing Eyes PERRL, conjunctivae normal, anicteric sclerae ENMT external ear and nose normal, oropharynx normal Neck trachea midline, no thyromegaly Respiratory no respiratory distress Auscultation: lungs clear to auscultation bilaterally Cardiovascular Rate/Rhythm: regular rate and regular rhythm; not tachycardic Heart Sounds: normal S1 and normal S2; no murmur Extremities: no edema Gastrointestinal (Abdomen) Inspection/Auscultation: + abdomen abnormal to inspection (Has left lower quadrant colostomy with colostomy bag) and abdomen not distended Discharge Data Allergies Allergy/AdvReac Type Severity Reaction Status Date / Time codeine AdvReac Intermediate NAUSEA, Verified 04/18/21 18:32 VOMITING colchicine AdvReac Intermediate GI side Verified 04/18/21 18:32 effects fentanyl AdvReac Intermediate vomiting Verified 04/18/21 18:32 Consultations 04/18/21 23:49 ED Decision to Admit Stat Ordered Studies 04/18/21 20:25 CT head/brain wo con Stat Hospital Course (1) Gastroenteritis: Complaining of epigastric discomfort with nausea vomiting excessive watery election for the last 2 or 3 days No fever and no chills and no one else is affected Has had recent ER visit with fluid administration but the condition did not improve Likely has gastroenteritis and seems to be better since admission this time Denies any more abdominal symptoms, no nausea and or vomiting Drainage from colostomy has been formed (2) Nausea vomiting and diarrhea: Secondary to acute gastroenteritis with increasing watery collection in the colostomy No more nausea and/or vomiting (3) Acute hyponatremia: Noted to be hyponatremic likely due to electrolyte loss through nausea vomiting and also diarrhea Has been getting intravenous fluid and sodium level has been improving Electrolytes have improved a lot She will be going home this afternoon (4) Colostomy present: The colostomy site seems to be intact as of today with formed stool (5) Hypothyroidism: Continue supplement (6) HTN (hypertension): Remains stable DVT prophylaxis Subcu heparin CODE STATUS Full We will get PT evaluation before discharging this afternoon Total Time Total Time Spent Total Time Spent (In Minutes): 35 minutes Discharge Plan Discharge Items Patient Disposition: Home - Self-Care Reason For Visit: WEAKNESS Discharge Diagnosis: Acute gastroenteritis, electrolyte imbalance, colostomy status, hypertension Condition on Discharge: Fair Activity: Resume your previous activity Non-emergency contact: Primary Care Provider Call non-emergency contact if: you have any medication questions and your symptoms worsen Follow-up/Referrals: Nahid Nicholas [Primary Care Provider] - 04/22/21 1:30 pm Diet: Regular Addtl Attending Provider Instructions: Please take precautions to avoid falls No change in your current medications Keep appointments with your primary care provider Pending Studies at Discharge: No Stand-Alone Forms: My [facility], Smoking Cessation Medications and DC Order Prescriptions: Continued nystatin [Nystop] 100,000 unit/gram powder 1 applic TOPICAL TID PRN (Reason: RASH UNDER BREASTS) RF: 0 metoprolol tartrate [Lopressor] 100 mg tablet 100 mg PO HS RF: 0 famotidine [Pepcid] 40 mg tablet 40 mg PO BID RF: 0 levothyroxine 100 mcg tablet 100 mcg PO DAILYBB RF: 0 pantoprazole [Protonix] 40 mg Tablet,Delayed Release (Dr/Ec) 40 mg PO DAILY RF: 0 amlodipine 10 mg tablet 10 mg PO DAILY RF: 0 calcitriol 0.25 mcg capsule 0.25 mcg PO Q OTHER DAY RF: 0 [id number] carb-K1 400 mcg-500 mg calcium-20 mcg Tablet 1 tab PO DAILY RF: 0 acetaminophen 500 mg tablet 1,000 mg PO Q8 PRN (Reason: Pain) RF: 0 ondansetron HCl 4 mg tablet 4 mg PO TID PRN (Reason: Nausea) RF: 0 Discharge Orders: Discharge Order (Routine); Ordered 04/20/21 Ordered By: Chris Adams Admission Data Admit Date/Time: 04/19/21 00:01 Attending Provider: Chris Adams Admit Provider: Estiven Leary Primary Care Provider: Nahid Nicholas Other Providers: Estiven Leary Other Interventions: Discharge Summary Assessment (RN) Last Done: 04/20/21 15:55
== END 2021-04-20 16:23 | disposition home or self-care (01) ==
LOC: ED 17:44 → 2N 04-19 00:01 → INTOOBSV 04-19 00:01 → 2N 04-19 01:11

== ENCOUNTER 2022-04-29 11:03 | Inpatient (IN) ==
[2022-04-29] MEDS ORDERED: SODIUM CHLORIDE 0.9% 1000ML 1,000 ML IV ONE (11:23)
[2022-04-29] MEDS ORDERED: FAMOTIDINE 20MG IV PUSH 20 MG/5 ML SYR IV STA (11:23)
--- NOTE | 2022-04-29 11:54 | XRay Report ---
XR chest 1V portable HISTORY: 86 years-old Female abdominal pain acute chest and abdominal pain COMPARISON: Chest radiograph 04/18/2021 TECHNIQUE: AP view of the chest FINDINGS: Cardiac mediastinal and hilar silhouettes are within normal limits. No pneumothorax, pleural effusion , airspace consolidation or overt pulmonary edema. Mild right hemidiaphragmatic elevation has improve d from the prior study. Unchanged mild blunting of the costophrenic angles, likely secondary to scarr ing versus atelectasis. Degenerative changes of the spine and left shoulder. Reverse right shoulder t otal joint arthroplasty. IMPRESSION: No acute process. ACT 112: Negative or not required by law. The above report was generated using voice recognition software. It may contain grammatical, syntax o r spelling errors. Electronically signed by: Alli Lama M.D. 04/29/2022 11:52 AM
--- NOTE | 2022-04-29 12:33 | Emergency Department Note ---
Impression & Plan Hyponatremia, Dehydration, Nausea, Colostomy present, Pneumatosis of intestines ED Provider Note NAME: HECTOR MILIAN AGE: 86 SEX: F ARRIVES VIA: Walk-In INFORMANT: Patient ED PROVIDER(S): Tony Marshall MD CHIEF COMPLAINT: Nausea, low sodium, dehydration PLAN: Disposition: Admit MEDICAL DECISION MAKING: The patient is a pleasant 86-year-old woman with a past medical history of diverticulitis with perforation status post colostomy in 2018 who presents to the emergency department accompanied by her daughter for evaluation of dehydration where the patient has had continued nausea with poor oral intake over the past several weeks where she has had increased liquid ostomy output. They report that followed up with their primary care doctor and had outpatient blood work that suggested dehydration and low sodium which was repeated 2 days in a row and were scheduled to have repeat blood work approximately a week later which is today but due to her worsening symptoms and persistent symptoms presented to emergency department for evaluation. Patient does report that she was able to eat a meat pie last night which was the most substantial food she has been able to eat since her symptoms began. She subsequently then notes that her stool was more formed today. She denies any recent antibiotics. She denies any fevers, cough, congestion, urinary symptoms. On arrival the patient is fatigued appearing but no acute distress, afebrile with blood pressure 160-170/70-80s and otherwise with stable vital signs. She appears clinically dry. She has no abdominal tenderness. WBC, H/H and platelets within normal limits. Chemistry without metabolic acidosis. Sodium is 128 without recent values for comparison though in the setting of their report of low sodium on recent outpatient testing and are not currently available. Glucose is within normal limits. LFTs unremarkable. UA without convincing evidence of infection. Respiratory viral panel/[employer] was negative. Given the patient's ongoing symptoms and the patient's history the patient had did agree with plan for CT imaging. 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 Given the patient's hyponatremia with ongoing symptoms agrees with plan for admission for further management. Case was discussed with Robert Peacock PAC with Dr. Haile, [facility] hospitalist, who will evaluate the patient for admission. Triage Nursing notes reviewed and agree them. Prior/outside medical records reviewed Vital Signs: reviewed Differential diagnosis: Infection, dehydration, metabolic abnormality, hypo/hyperglycemia, electrolyte disturbance, anemia, hypoxia, cardiac sources, intracerebral event, toxicologic, neurologic, as well as other pathologies. ER treatment provided: See below. Diagnostics interpreted by me: ECG: Sinus rhythm with first-degree block, 68 bpm, no ectopy, right bundle branch block, no overt ST elevation or depression, QTc 452, QRS 132 Cardiac Monitoring: An order for continuous cardiac monitoring was placed and demonstrated Sinus rhythm with first-degree block, 68 bpm, no ectopy. Laboratory studies: See below Imaging studies: See below Consultation(s): Case was discussed with Robert Peacock PAC with [facility] hospitalist, who will evaluate the patient for admission. HPI: The patient is a pleasant 86-year-old woman with a past medical history of diverticulitis with perforation status post colostomy in 2019 who presents emergency department [place] by her daughter for evaluation of dehydration where the patient has had continued nausea with poor oral intake over the past several weeks where she has had increased liquid ostomy output. They report that followed up with their primary care doctor and had outpatient blood work that suggested dehydration and were scheduled to have repeat blood work today but due to her worsening symptoms and persistent symptoms presented to emergency department for evaluation. Patient does report that she was able to eat a meat pie last night which was the most substantial food she has been able to eat since her symptoms began. She subsequently then notes that her stool was more formed today. She denies any recent antibiotics. She denies any fevers, cough, congestion, urinary symptoms. ROS: See above HPI for pertinent positives & negatives. A total of 10 systems reviewed and were otherwise negative. VITALS:See Below PHYSICAL EXAMINATION: GENERAL: Awake, alert, fatigued but well-appearing, in no distress HENT: Normocephalic, atraumatic. Oropharynx with dry mucous membranes and o therwise unremarkable. EYES: Normal conjunctiva. Sclera non-icteric. NECK: Supple. No nuchal rigidity. FROM. No JVD. RESPIRATORY: Clear to auscultation. CARDIAC: Regular rate, normal rhythm. Extremities warm and well perfused. Pulses equal. ABDOMEN: Soft, non-distended. No tenderness to palpation. No rebound or guarding. LLQ ostomy site c/d/i. RECTAL: Deferred. MUSCULOSKELETAL: Chest examination reveals no tenderness. The back is symmetrical on inspection without obvious abnormality. There is no CVA tenderness to palpation. No joint edema. LOWER EXTREMITIES: Calves are equal size bilaterally and non-tender. No edema. No discoloration. NEURO: Normal sensorium. No sensory or motor deficits noted. SKIN: No rash or jaundice noted. Tony Marshall MD Past Med/Surg History Medical History Abdominal pain Colostomy present Diverticulitis of colon with perforation Diverticulosis GERD (gastroesophageal reflux disease) Hiatal hernia HTN (hypertension) Hypothyroidism Surgical History Closed fracture of right proximal humerus Status post repair History of cataract surgery History of colostomy Hx of cholecystectomy Family History Sister Breast cancer Coronary heart disease Brother Coronary heart disease Other Hypertension Social History Smoking Status: Never smoker Second Hand Exposure: Yes; Do You Dip or Chew Tobacco: No; Hx Alcohol Use: No Hx Substance Use: No Preferred Language: Amharic Communication Ability: Effective 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: No Beliefs That Will Affect Care: None marital status: / Current Living Situation: Alone How many Children do You have: 3 Other Information That Helps Us Care for You: No Feels Safe at Home: Yes Safety Concerns: Feels Safe At This Time Assistive Devices: Cane, Denture - Upper, Denture - Lower and Glasses Allergies Allergies Allergy/AdvReac Type Severity Reaction Status Date / Time codeine AdvReac Intermediate NAUSEA, Verified 01/25/22 14:04 VOMITING colchicine AdvReac Intermediate GI side Verified 01/25/22 14:04 effects fentanyl AdvReac Intermediate vomiting Verified 01/25/22 14:04 Home Meds Home Medications Medication Instructions Recorded Confirmed famotidine 40 mg tablet (Pepcid) 40 mg PO BID 05/26/19 04/29/22 levothyroxine 100 mcg tablet 100 mcg PO DAILYBB 05/26/19 04/29/22 metoprolol tartrate 100 mg tablet 100 mg PO HS 05/26/19 04/29/22 (Lopressor) nystatin 100,000 unit/gram topical 1 applic topical TID PRN RASH 07/18/19 04/29/22 powder (Nystop) UNDER BREASTS pantoprazole 40 mg tablet,delayed 40 mg PO DAILY 07/23/19 04/29/22 release (Protonix) amlodipine 10 mg tablet 10 mg PO DAILY 07/23/20 04/29/22 calcitriol 0.25 mcg capsule 0.25 mcg PO Q OTHER DAY 07/23/20 04/29/22 acetaminophen 500 mg tablet 1,000 mg PO Q8 PRN Pain 04/14/21 04/29/22 [id number] ac 400 1 tab PO DAILY 04/14/21 04/29/22 mcg-calcium carb 500 mg-vit K1 20 mcg tablet ondansetron HCl 4 mg tablet 4 mg PO TID PRN Nausea 04/18/21 04/29/22 nitroglycerin 0.4 mg sublingual 0.4 mg sublingual UD PRN Chest Pain 04/29/22 04/29/22 tablet Results & Data (ED) Vital Signs Vital Signs - 24 hr 04/29/22 11:10 04/29/22 11:36 04/29/22 11:44 Temperature 36.3 C L Temperature Source Temporal Artery Scan Pulse Rate 72 66 Pulse Rate [Left Apical] Pulse Rhythm Regular Pulse Strength Normal Respiratory Rate 20 Respiratory Effort / Characteristics Non-Labored Spontaneous Respiratory Depth Normal Respiratory Pattern Regular Blood Pressure 161/81 H Blood Pressure [Right Arm] Blood Pressure Mean 107 Blood Pressure Mean [Right Arm] Blood Pressure Position Sitting Pulse Oximetry 94 96 Oxygen Delivery Method Room Air Room Air Sepsis Recent Fever Within 48 Hours No Sepsis New/Unexplained Change in Mental Status No Sepsis Action Taken by Nursing No Action Required 04/29/22 12:00 04/29/22 12:20 04/29/22 12:40 Temperature Temperature Source Pulse Rate 64 66 64 Pulse Rate [Left Apical] Pulse Rhythm Pulse Strength Respiratory Rate 17 22 16 Respiratory Effort / Characteristics Respiratory Depth Respiratory Pattern Blood Pressure 154/62 H 166/80 H 184/69 H Blood Pressure [Right Arm] Blood Pressure Mean 92 108 107 Blood Pressure Mean [Right Arm] Blood Pressure Position Pulse Oximetry 96 97 97 Oxygen Delivery Method Room Air Room Air Room Air Sepsis Recent Fever Within 48 Hours Sepsis New/Unexplained Change in Mental Status Sepsis Action Taken by Nursing 04/29/22 13:01 04/29/22 13:50 04/29/22 16:20 Temperature Temperature Source Pulse Rate 74 72 Pulse Rate [Left Apical] 69 Pulse Rhythm Pulse Strength Respiratory Rate 18 17 14 Respiratory Effort / Characteristics Respiratory Depth Respiratory Pattern Blood Pressure 135/86 173/71 H Blood Pressure [Right Arm] 168/62 H Blood Pressure Mean 102 105 Blood Pressure Mean [Right Arm] 97 Blood Pressure Position Pulse Oximetry 98 97 94 Oxygen Delivery Method Room Air Room Air Sepsis Recent Fever Within 48 Hours Sepsis New/Unexplained Change in Mental Status Sepsis Action Taken by Nursing 04/29/22 16:30 Temperature Temperature Source Pulse Rate 75 Pulse Rate [Left Apical] Pulse Rhythm Pulse Strength Respiratory Rate 24 Respiratory Effort / Characteristics Respiratory Depth Respiratory Pattern Blood Pressure 156/70 H Blood Pressure [Right Arm] Blood Pressure Mean 98 Blood Pressure Mean [Right Arm] Blood Pressure Position Pulse Oximetry 93 Oxygen Delivery Method Room Air Sepsis Recent Fever Within 48 Hours Sepsis New/Unexplained Change in Mental Status Sepsis Action Taken by Nursing Laboratory Data Attestation: I reviewed the patient's lab results. 04/29/22 11:40 04/29/22 11:40 Lab Results 04/29/22 04/29/22 04/29/22 Range/Units 11:30 11:40 11:40 WBC Cancelled RBC Cancelled Hgb Cancelled Hct Cancelled MCV Cancelled MCH Cancelled MCHC Cancelled RDW Std Deviation Cancelled RDW Coeff of Grecia Cancelled Plt Count Cancelled MPV Cancelled Immature Gran % (Auto) Cancelled Neut % (Auto) Cancelled Lymph % (Auto) Cancelled [place] % (Auto) Cancelled Eos % (Auto) Cancelled Baso % (Auto) Cancelled Neut # (Auto) Cancelled Lymph # (Auto) Cancelled [place] # (Auto) Cancelled Eos # (Auto) Cancelled Baso # (Auto) Cancelled Immature Gran # (Auto) Cancelled Absolute Nucleated RBC Cancelled Nucleated RBC % (auto) Cancelled Neutrophils % (Manual) Cancelled Band Neutrophils % Cancelled Lymphocytes % (Manual) Cancelled Prolymphocyte % Cancelled Reactive Lymphs % (Man) Cancelled Monocytes % (Manual) Cancelled Eosinophils % (Manual) Cancelled Basophils % (Manual) Cancelled Metamyelocytes % (Man) Cancelled Myelocytes % (Man) Cancelled Promyelocytes % (Man) Cancelled Blast Cells % (Manual) Cancelled Plasma Cell % (Manual) Cancelled Other Cells % Cancelled Nucleated RBC % Cancelled Neutrophils # (Manual) Cancelled Band Neutrophils # Cancelled Total Absolute Neuts Cancelled Lymphocytes # (Manual) Cancelled Prolymphocyte # Cancelled Reactive Lymphs # Cancelled Total Abs Lymphocytes Cancelled Monocytes # (Manual) Cancelled Eosinophils # (Manual) Cancelled Basophils # (Manual) Cancelled Metamyelocytes # (Man) Cancelled Myelocytes # (Manual) Cancelled Promyelocytes # (Man) Cancelled Blast Cells # (Man) Cancelled Plasma Cell # (Manual) Cancelled Other Cells # Cancelled Nucleated RBCs # (Man) Cancelled Hypersegmented Neuts Cancelled Hyposegmented Neuts Cancelled Hypogranular Neuts Cancelled Large Granular Lymphs Cancelled # Lrg Granular Lymphs Cancelled Hairy Cells Cancelled Smudge Cells Cancelled Toxic Granulation Cancelled Toxic Vacuolation Cancelled Dohle Bodies Cancelled Evelina Rods Cancelled Platelet Estimate Cancelled Hypogranular Platelets Cancelled Giant Platelets Cancelled Platelet Satelliting Cancelled RBC Morphology Cancelled Polychromasia Cancelled Hypochromasia Cancelled Poikilocytosis Cancelled Basophilic Stippling Cancelled Anisocytosis Cancelled Microcytosis Cancelled Macrocytosis Cancelled Spherocytes Cancelled Pappenheimer Bodies Cancelled Sickle Cells Cancelled Target Cells Cancelled Tear Drop Cells Cancelled Ovalocytes Cancelled Stomatocytes Cancelled [place] Bodies Cancelled Echinocytes Cancelled Acanthocytes (Spur) Cancelled Rouleaux Cancelled RBC Agglutinates Cancelled Schistocytes Cancelled Sezary Cell Cancelled Sodium Cancelled Potassium Cancelled Chloride Cancelled Carbon Dioxide Cancelled Anion Gap Cancelled BUN Cancelled Creatinine Cancelled Est Cr Clr Drug Dosing Cancelled Est GFR ( Amer) Cancelled Est GFR (Non-Af Amer) Cancelled BUN/Creatinine Ratio Cancelled Glucose Cancelled Osmolality (280-300) mOsm/kg Calcium Cancelled Phosphorus Cancelled Magnesium Cancelled Total Bilirubin Cancelled AST Cancelled ALT Cancelled Alkaline Phosphatase Cancelled Total Protein Cancelled Albumin Cancelled Globulin Cancelled Albumin/Globulin Ratio Cancelled TSH (0.300-4.500) uIu/ml Urine Color Urine Appearance (Clear) Urine pH (4.5-7.5) Ur Specific [facility] (1.000-1.030) Urine Protein (Negative) Urine Glucose (UA) (Negative) Urine Ketones (Negative) Urine Blood (Negative) Urine Nitrite (Negative) Urine Bilirubin (Negative) Urine Urobilinogen (Negative) Ur Leukocyte Esterase (Negative) Urine Osmolality (500-800) mOsm/kg Ur Random Sodium mmol/L Adenovirus (PCR) Not Detected (NotDetected) B. pertussis DNA (PCR) Not Detected (NotDetected) B.parapertussis DNA PCR Not Detected (NotDetected) C. pneumoniae DNA (PCR) Not Detected (NotDetected) Coronavirus OC43 (PCR) Not Detected (NotDetected) Coronavirus HKU1 (PCR) Not Detected (NotDetected) Coronavirus 229E (PCR) Not Detected (NotDetected) SARS-CoV-2 (PCR) Not Detected (NotDetected) Coronavirus NL63 (PCR) Not Detected (NotDetected) Human Metapneumovir PCR Not Detected (NotDetected) Influenza Type A (PCR) Not Detected (NotDetected) Influenza Type B (PCR) Not Detected (NotDetected) M. pneumoniae (PCR) Not Detected (NotDetected) Parainfluenza 1 (PCR) Not Detected (NotDetected) Parainfluenza 2 (PCR) Not Detected (NotDetected) Parainfluenza 3 (PCR) Not Detected (NotDetected) Parainfluenza 4 (PCR) Not Detected (NotDetected) RSV (PCR) Not Detected (NotDetected) Entero/Rhino (PCR) Not Detected (NotDetected) Blood Parasites ID Cancelled 04/29/22 04/29/22 04/29/22 Range/Units 11:40 11:40 12:25 WBC RBC Hgb Hct MCV MCH MCHC RDW Std Deviation RDW Coeff of Grecia Plt Count MPV Immature Gran % (Auto) Neut % (Auto) Lymph % (Auto) [place] % (Auto) Eos % (Auto) Baso % (Auto) Neut # (Auto) Lymph # (Auto) [place] # (Auto) Eos # (Auto) Baso # (Auto) Immature Gran # (Auto) Absolute Nucleated RBC Nucleated RBC % (auto) Neutrophils % (Manual) Band Neutrophils % Lymphocytes % (Manual) Prolymphocyte % Reactive Lymphs % (Man) Monocytes % (Manual) Eosinophils % (Manual) Basophils % (Manual) Metamyelocytes % (Man) Myelocytes % (Man) Promyelocytes % (Man) Blast Cells % (Manual) Plasma Cell % (Manual) Other Cells % Nucleated RBC % Neutrophils # (Manual) Band Neutrophils # Total Absolute Neuts Lymphocytes # (Manual) Prolymphocyte # Reactive Lymphs # Total Abs Lymphocytes Monocytes # (Manual) Eosinophils # (Manual) Basophils # (Manual) Metamyelocytes # (Man) Myelocytes # (Manual) Promyelocytes # (Man) Blast Cells # (Man) Plasma Cell # (Manual) Other Cells # Nucleated RBCs # (Man) Hypersegmented Neuts Hyposegmented Neuts Hypogranular Neuts Large Granular Lymphs # Lrg Granular Lymphs Hairy Cells Smudge Cells Toxic Granulation Toxic Vacuolation Dohle Bodies Evelina Rods Platelet Estimate Hypogranular Platelets Giant Platelets Platelet Satelliting RBC Morphology Polychromasia Hypochromasia Poikilocytosis Basophilic Stippling Anisocytosis Microcytosis Macrocytosis Spherocytes Pappenheimer Bodies Sickle Cells Target Cells Tear Drop Cells Ovalocytes Stomatocytes [place] Bodies Echinocytes Acanthocytes (Spur) Rouleaux RBC Agglutinates Schistocytes Sezary Cell Sodium Potassium Chloride Carbon Dioxide Anion Gap BUN Creatinine Est Cr Clr Drug Dosing Est GFR ( Amer) Est GFR (Non-Af Amer) BUN/Creatinine Ratio Glucose Osmolality 244 L (280-300) mOsm/kg Calcium Phosphorus Magnesium Total Bilirubin AST ALT Alkaline Phosphatase Total Protein Albumin Globulin Albumin/Globulin Ratio TSH 2.732 (0.300-4.500) uIu/ml Urine Color Yellow Urine Appearance Clear (Clear) Urine pH 7.5 (4.5-7.5) Ur Specific [facility] 1.007 (1.000-1.030) Urine Protein Negative (Negative) Urine Glucose (UA) Negative (Negative) Urine Ketones Trace H (Negative) Urine Blood Negative (Negative) Urine Nitrite Negative (Negative) Urine Bilirubin Negative (Negative) Urine Urobilinogen Negative (Negative) Ur Leukocyte Esterase Negative (Negative) Urine Osmolality (500-800) mOsm/kg Ur Random Sodium mmol/L Adenovirus (PCR) (NotDetected) B. pertussis DNA (PCR) (NotDetected) B.parapertussis DNA PCR (NotDetected) C. pneumoniae DNA (PCR) (NotDetected) Coronavirus OC43 (PCR) (NotDetected) Coronavirus HKU1 (PCR) (NotDetected) Coronavirus 229E (PCR) (NotDetected) SARS-CoV-2 (PCR) (NotDetected) Coronavirus NL63 (PCR) (NotDetected) Human Metapneumovir PCR (NotDetected) Influenza Type A (PCR) (NotDetected) Influenza Type B (PCR) (NotDetected) M. pneumoniae (PCR) (NotDetected) Parainfluenza 1 (PCR) (NotDetected) Parainfluenza 2 (PCR) (NotDetected) Parainfluenza 3 (PCR) (NotDetected) Parainfluenza 4 (PCR) (NotDetected) RSV (PCR) (NotDetected) Entero/Rhino (PCR) (NotDetected) Blood Parasites ID 04/29/22 04/29/22 04/29/22 Range/Units 12:25 12:25 12:43 WBC 7.24 RBC 4.55 Hgb 14.0 Hct 40.4 MCV 88.8 MCH 30.8 MCHC 34.7 RDW Std Deviation 37.2 RDW Coeff of Grecia 11.6 Plt Count 284 MPV 9.8 Immature Gran % (Auto) 0.3 Neut % (Auto) 72.5 Lymph % (Auto) 19.9 [place] % (Auto) 6.1 Eos % (Auto) 0.8 Baso % (Auto) 0.4 Neut # (Auto) 5.25 Lymph # (Auto) 1.44 [place] # (Auto) 0.44 Eos # (Auto) 0.06 Baso # (Auto) 0.03 Immature Gran # (Auto) 0.02 Absolute Nucleated RBC Nucleated RBC % (auto) Neutrophils % (Manual) Band Neutrophils % Lymphocytes % (Manual) Prolymphocyte % Reactive Lymphs % (Man) Monocytes % (Manual) Eosinophils % (Manual) Basophils % (Manual) Metamyelocytes % (Man) Myelocytes % (Man) Promyelocytes % (Man) Blast Cells % (Manual) Plasma Cell % (Manual) Other Cells % Nucleated RBC % Neutrophils # (Manual) Band Neutrophils # Total Absolute Neuts Lymphocytes # (Manual) Prolymphocyte # Reactive Lymphs # Total Abs Lymphocytes Monocytes # (Manual) Eosinophils # (Manual) Basophils # (Manual) Metamyelocytes # (Man) Myelocytes # (Manual) Promyelocytes # (Man) Blast Cells # (Man) Plasma Cell # (Manual) Other Cells # Nucleated RBCs # (Man) Hypersegmented Neuts Hyposegmented Neuts Hypogranular Neuts Large Granular Lymphs # Lrg Granular Lymphs Hairy Cells Smudge Cells Toxic Granulation Toxic Vacuolation Dohle Bodies Evelina Rods Platelet Estimate Hypogranular Platelets Giant Platelets Platelet Satelliting RBC Morphology Polychromasia Hypochromasia Poikilocytosis Basophilic Stippling Anisocytosis Microcytosis Macrocytosis Spherocytes Pappenheimer Bodies Sickle Cells Target Cells Tear Drop Cells Ovalocytes Stomatocytes [place] Bodies Echinocytes Acanthocytes (Spur) Rouleaux RBC Agglutinates Schistocytes Sezary Cell Sodium Potassium Chloride Carbon Dioxide Anion Gap BUN Creatinine Est Cr Clr Drug Dosing Est GFR ( Amer) Est GFR (Non-Af Amer) BUN/Creatinine Ratio Glucose Osmolality (280-300) mOsm/kg Calcium Phosphorus Magnesium Total Bilirubin AST ALT Alkaline Phosphatase Total Protein Albumin Globulin Albumin/Globulin Ratio TSH (0.300-4.500) uIu/ml Urine Color Urine Appearance (Clear) Urine pH (4.5-7.5) Ur Specific [facility] (1.000-1.030) Urine Protein (Negative) Urine Glucose (UA) (Negative) Urine Ketones (Negative) Urine Blood (Negative) Urine Nitrite (Negative) Urine Bilirubin (Negative) Urine Urobilinogen (Negative) Ur Leukocyte Esterase (Negative) Urine Osmolality 256 L (500-800) mOsm/kg Ur Random Sodium 44 mmol/L Adenovirus (PCR) (NotDetected) B. pertussis DNA (PCR) (NotDetected) B.parapertussis DNA PCR (NotDetected) C. pneumoniae DNA (PCR) (NotDetected) Coronavirus OC43 (PCR) (NotDetected) Coronavirus HKU1 (PCR) (NotDetected) Coronavirus 229E (PCR) (NotDetected) SARS-CoV-2 (PCR) (NotDetected) Coronavirus NL63 (PCR) (NotDetected) Human Metapneumovir PCR (NotDetected) Influenza Type A (PCR) (NotDetected) Influenza Type B (PCR) (NotDetected) M. pneumoniae (PCR) (NotDetected) Parainfluenza 1 (PCR) (NotDetected) Parainfluenza 2 (PCR) (NotDetected) Parainfluenza 3 (PCR) (NotDetected) Parainfluenza 4 (PCR) (NotDetected) RSV (PCR) (NotDetected) Entero/Rhino (PCR) (NotDetected) Blood Parasites ID 04/29/22 Range/Units 13:06 WBC RBC Hgb Hct MCV MCH MCHC RDW Std Deviation RDW Coeff of Grecia Plt Count MPV Immature Gran % (Auto) Neut % (Auto) Lymph % (Auto) [place] % (Auto) Eos % (Auto) Baso % (Auto) Neut # (Auto) Lymph # (Auto) [place] # (Auto) Eos # (Auto) Baso # (Auto) Immature Gran # (Auto) Absolute Nucleated RBC Nucleated RBC % (auto) Neutrophils % (Manual) Band Neutrophils % Lymphocytes % (Manual) Prolymphocyte % Reactive Lymphs % (Man) Monocytes % (Manual) Eosinophils % (Manual) Basophils % (Manual) Metamyelocytes % (Man) Myelocytes % (Man) Promyelocytes % (Man) Blast Cells % (Manual) Plasma Cell % (Manual) Other Cells % Nucleated RBC % Neutrophils # (Manual) Band Neutrophils # Total Absolute Neuts Lymphocytes # (Manual) Prolymphocyte # Reactive Lymphs # Total Abs Lymphocytes Monocytes # (Manual) Eosinophils # (Manual) Basophils # (Manual) Metamyelocytes # (Man) Myelocytes # (Manual) Promyelocytes # (Man) Blast Cells # (Man) Plasma Cell # (Manual) Other Cells # Nucleated RBCs # (Man) Hypersegmented Neuts Hyposegmented Neuts Hypogranular Neuts Large Granular Lymphs # Lrg Granular Lymphs Hairy Cells Smudge Cells Toxic Granulation Toxic Vacuolation Dohle Bodies Evelina Rods Platelet Estimate Hypogranular Platelets [place] Platelets Platelet Satelliting RBC Morphology Polychromasia Hypochromasia Poikilocytosis Basophilic Stippling Anisocytosis Microcytosis Macrocytosis Spherocytes Pappenheimer Bodies Sickle Cells Target Cells Tear Drop Cells Ovalocytes Stomatocytes [place] Bodies Echinocytes Acanthocytes (Spur) Rouleaux RBC Agglutinates Schistocytes Sezary Cell Sodium 120 L Potassium 4.9 Chloride 90 L Carbon Dioxide 25 Anion Gap 5 BUN 10 Creatinine 0.58 L Est Cr Clr Drug Dosing 59.1 Est GFR ( Amer) 97.4 Est GFR (Non-Af Amer) 84.0 BUN/Creatinine Ratio 17.2 Glucose 91 Osmolality (280-300) mOsm/kg Calcium 8.6 Phosphorus 3.9 Magnesium 1.9 Total Bilirubin 0.9 AST 39 ALT 36 Alkaline Phosphatase 92 Total Protein 6.4 Albumin 3.7 Globulin 2.7 Albumin/Globulin Ratio 1.4 TSH (0.300-4.500) uIu/ml Urine Color Urine Appearance (Clear) Urine pH (4.5-7.5) Ur Specific [facility] (1.000-1.030) Urine Protein (Negative) Urine Glucose (UA) (Negative) Urine Ketones (Negative) Urine Blood (Negative) Urine Nitrite (Negative) Urine Bilirubin (Negative) Urine Urobilinogen (Negative) Ur Leukocyte Esterase (Negative) Urine Osmolality (500-800) mOsm/kg Ur Random Sodium mmol/L Adenovirus (PCR) (NotDetected) B. pertussis DNA (PCR) (NotDetected) B.parapertussis DNA PCR (NotDetected) C. pneumoniae DNA (PCR) (NotDetected) Coronavirus OC43 (PCR) (NotDetected) Coronavirus HKU1 (PCR) (NotDetected) Coronavirus 229E (PCR) (NotDetected) SARS-CoV-2 (PCR) (NotDetected) Coronavirus NL63 (PCR) (NotDetected) Human Metapneumovir PCR (NotDetected) Influenza Type A (PCR) (NotDetected) Influenza Type B (PCR) (NotDetected) M. pneumoniae (PCR) (NotDetected) Parainfluenza 1 (PCR) (NotDetected) Parainfluenza 2 (PCR) (NotDetected) Parainfluenza 3 (PCR) (NotDetected) Parainfluenza 4 (PCR) (NotDetected) RSV (PCR) (NotDetected) Entero/Rhino (PCR) (NotDetected) Blood Parasites ID Administered Medications Enoxaparin Sodium (Enoxaparin Inj 40 Mg/0.4 Ml Syr) 40 mg SQ Q24H FUAD Stop: 05/29/22 20:48 Last Admin: 04/29/22 22:19 Dose: 40 mg Documented By: LUIS Famotidine (Famotidine 40 Mg Tablet) 40 mg PO BID FUAD Stop: 05/29/22 20:59 Last Admin: 04/29/22 22:18 Dose: 40 mg Documented By: LUIS Metoprolol Succinate (Metoprolol Succ 50mg Ext Rel Tab) 100 mg PO HS FUAD Stop: 05/29/22 20:59 Last Admin: 04/29/22 22:18 Dose: 100 mg Documented By: LUIS Discontinued Medications Amlodipine Besylate (Amlodipine Besylate 5 Mg Tab) 10 mg PO NOW ONE Stop: 04/29/22 17:01 Last Admin: 04/29/22 17:32 Dose: 10 mg Documented By: KOFI Sodium Chloride (Nss 1000ml) 1,000 mls @ 999 mls/hr IV .Q1H1M ONE Stop: 04/29/22 12:23 Last Infusion: 04/29/22 13:12 Dose: 0 mls/hr Documented By: Infusion: 04/29/22 12:14 Dose: 999 mls/hr Documented By: Infusion: 04/29/22 11:56 Dose: 0 mls/hr Documented By: Admin: 04/29/22 11:47 Dose: 999 mls/hr Documented By: KOFI Famotidine (Pepcid 20mg Iv Push) 20 mg in 5 mls @ 2.5 mls/min IV NOW STA Stop: 04/29/22 11:24 Last Admin: 04/29/22 11:47 Dose: 2.5 mls/min Documented By: KOFI Sodium Chloride (Nss 1000ml) 1,000 mls @ 50 mls/hr IV .Q20H FUAD Stop: 05/29/22 19:14 Last Infusion: 04/30/22 00:15 Dose: 0 mls/hr Documented By: Admin: 04/29/22 22:19 Dose: 50 mls/hr Documented By: LUIS Ioversol (Optiray 350 100ml) 87 ml IV ONCE ONE Stop: 04/29/22 14:30 Last Admin: 04/29/22 14:18 Dose: 87 ml Documented By: JOSE Ondansetron HCl (Ondansetron Inj 2 Mg/Ml 2 Ml Vial) 4 mg IV NOW STA Stop: 04/29/22 13:27 Last Admin: 04/29/22 13:46 Dose: 4 mg Documented By: [facility] Imaging Data Radiologist's Impression: Abdomen/Pelvis CT 04/29/22 12:[address] WITH IV CONTRAST CT DOSE: 614.20 mGycm HISTORY: nausea, increased ostomy output TECHNIQUE: Multiaxial CT images of the abdomen and pelvis were performed following the use of intravenous contrast. A dose lowering technique was utilized adhering to the principles of ALARA. COMPARISON STUDY: Abdomen and pelvis CT 04/14/2021. FINDINGS: Mild chronic interstitial thickening seen at the lung bases. There are multiple foci of gas both within and surrounding the majority of the small bowel loops. This has progressed in the interval but favors a benign pneumatosis. In retrospect, this was present on the prior examination from 2021. Severe degener ative disc disease at L1-L2, unchanged. No acute fractures identified. Small fat-containing subumbilical hernia containing small foci of extrapleural gas within the herniated fat. Prior cholecystectomy. This likely accounts for the bile duct dilatation which remains stable. Hepatic steatosis. Stable 1.7 cm hypodense lesion within the right hepatic lobe. This may represent a cyst or hemangioma. The pancreas, spleen, adrenal glands, and right kidney are unremarkable. Mild fullness within the left renal collecting system without aleida hydronephrosis. There are small bilateral peripelvic cysts again noted. No ureteral stones identified. The main portal vein is patent. Calcified plaque within the normal caliber abdominal aorta. The major mesenteric vessels appear patent. No retroperitoneal or pelvic lymphadenopathy. The bladder, uterus, and adnexa are unremarkable. Colonic diverticulosis within the residual sigmoid colon. 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 This is similar to the prior study. No evidence for a bowel obstruction. Fluid-filled loops of small bowel again noted which remain unchanged. Normal appendix. IMPRESSION: 1. There are multiple foci of gas both within and surrounding the majority of the small bowel loops. This has progressed in the interval but favors a benign pneumatosis. An ischemic process is considered less likely given the lack of bowel wall thickening or inflammatory change but is technically within the differential diagnosis. 2. 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 This is similar to the prior study. No evidence for a bowel obstruction at this time. 3. Colonic diverticulosis. No evidence for acute diverticulitis. 4. Fluid-filled loops of nondilated small bowel which can be seen in the setting of an ileus versus gastroenteritis. This is similar to the prior study. 5. Mild fullness within the left renal collecting system without aleida hydrone phrosis. No ureteral stones identified. 6. Additional findings as described above. ACT 112: Negative or not required by law. Electronically signed by: Arron Do M.D. 04/29/2022 2:46 PM Chest X-Ray 04/29/22 11:21 XR chest 1V portable HISTORY: 86 years-old Female abdominal pain acute chest and abdominal pain COMPARISON: Chest radiograph 04/18/2021 TECHNIQUE: AP view of the chest FINDINGS: Cardiac mediastinal and hilar silhouettes are within normal limits. No pneumothorax, pleural effusion, airspace consolidation or overt pulmonary edema. Mild right hemidiaphragmatic elevation has improved from the prior study. Unchanged mild blunting of the costophrenic angles, likely secondary to scarring versus atelectasis. Degenerative changes of the spine and left shoulder. Reverse right shoulder total joint arthroplasty. IMPRESSION: No acute process. ACT 112: Negative or not required by law. The above report was generated using voice recognition software. It may contain grammatical, syntax or spelling errors. Electronically signed by: Alli Lama M.D. 04/29/2022 11:52 AM Abdomen/Pelvis CT 04/29/22 12:[address] WITH IV CONTRAST CT DOSE: 614.20 mGycm HISTORY: nausea, increased ostomy output TECHNIQUE: Multiaxial CT images of the abdomen and pelvis were performed following the use of intravenous contrast. A dose lowering technique was utilized adhering to the principles of ALARA. COMPARISON STUDY: Abdomen and pelvis CT 04/14/2021. FINDINGS: Mild chronic interstitial thickening seen at the lung bases. There are multiple foci of gas both within and surrounding the majority of the small bowel loops. This has progressed in the interval but favors a benign pneumatosis. In retrospect, this was present on the prior examination from 2021. Severe degenerative disc disease at L1-L2, unchanged. No acute fractures identified. Small fat-containing subumbilical hernia containing small foci of extrapleural gas within the herniated fat. Prior cholecystectomy. This likely accounts for the bile duct dilatation which remains stable. Hepatic steatosis. Stable 1.7 cm hypodense lesion within the right hepatic lobe. This may represent a cyst or hemangioma. The pancreas, spleen, adrenal glands, and right kidney are u nremarkable. Mild fullness within the left renal collecting system without aleida hydronephrosis. There are small bilateral peripelvic cysts again noted. No ureteral stones identified. The main portal vein is patent. Calcified plaque within the normal caliber abdominal aorta. The major mesenteric vessels appear patent. No retroperitoneal or pelvic lymphadenopathy. The bladder, uterus, and adnexa are unremarkable. Colonic diverticulosis within the residual sigmoid colon. 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 This is similar to the prior study. No evidence for a bowel obs truction. Fluid-filled loops of small bowel again noted which remain unchanged. Normal appendix. IMPRESSION: 1. There are multiple foci of gas both within and surrounding the majority of the small bowel loops. This has progressed in the interval but favors a benign pneumatosis. An ischemic process is considered less likely given the lack of bowel wall thickening or inflammatory change but is technically within the differential diagnosis. 2. 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 This is similar to the prior study. No evidence for a bowel obstruction at this time. 3. Colonic diverticulosis. No evidence for acute diverticulitis. 4. Fluid-filled loops of nondilated small bowel which can be seen in the setting of an ileus versus gastroenteritis. This is similar to the prior study. 5. Mild fullness within the left renal collecting system without aleida hydronephrosis. No ureteral stones identified. 6. Additional findings as described above. ACT 112: Negative or not required by law. Electronically signed by: Arron Do M.D. 04/29/2022 2:46 PM Discharge Plan Visit Data Chief Complaint: Dehydration Stated Complaint: DEHYDRATION ED Provider: Tony Marshall Discharge Problem: Hyponatremia, Dehydration, Nausea, Colostomy present, Pneumatosis of intestines Patient Disposition: Admitted As Inpatient Discharge Instructions Interventions: ED Discharge Assessment Last Done: 04/29/22 19:46
[2022-04-29 12:47] LABS: Adenovirus PCR Not Detected (NotDetected); Bordetella parapertussis PCR Not Detected (NotDetected); Bordetella pertussis PCR Not Detected (NotDetected); Chlamydia pneumoniae PCR Not Detected (NotDetected); Coronavirus 229E PCR Not Detected (NotDetected); Coronavirus CoV-2 (COVID19)PCR Not Detected (NotDetected); Coronavirus HKU1 PCR Not Detected (NotDetected); Coronavirus NL63 PCR Not Detected (NotDetected); Coronavirus OC43PCR Not Detected (NotDetected); Human Metapneumovirus PCR Not Detected (NotDetected); Influenza A PCR Not Detected (NotDetected); Influenza B PCR Not Detected (NotDetected); Mycoplasma pneumoniae PCR Not Detected (NotDetected); Parainfluenza Virus 1 PCR Not Detected (NotDetected); Parainfluenza Virus 2 PCR Not Detected (NotDetected); Parainfluenza Virus 3 PCR Not Detected (NotDetected); Parainfluenza Virus 4 PCR Not Detected (NotDetected); Respiratory Syncytial VirusPCR Not Detected (NotDetected); Rhinovirus/Enterovirus PCR Not Detected (NotDetected)
[2022-04-29 12:52] LABS: Appearance Urine Clear (Clear); Bilirubin Urine Negative (Negative); Blood Urine Negative (Negative); Color Urine Yellow; Glucose Urine UA Negative (Negative); Ketones Urine Trace (Negative); Leukocyte Esterase Urine Negative (Negative); Nitrite Urine Negative (Negative); Protein Urine Negative (Negative); Specific Gravity Urine 1.007 (1.000-1.030); Urobilinogen Urine Negative (Negative); pH Urine 7.5 (4.5-7.5)
[2022-04-29] MEDS ORDERED: ONDANSETRON INJ 2 MG/ML 2 ML VIAL IV STA (13:26)
[2022-04-29 13:43] LABS: Albumin Globulin Ratio 1.4 (0.9-2); Albumin Level 3.7 gm/dl (3.4-5.0); BUN Creatinine Ratio 17.2 (10-20); Bilirubin,Total 0.9 mg/dl (0.2-1.0); Calcium 8.6 mg/dl (8.5-10.1); Creatinine Clr Calc Pharmacy 59.1 ml/min; Est GFR (African American) 97.4 ml/min; Globulin 2.7 gm/dl (2.5-4.0); Magnesium 1.9 mg/dl (1.7-2.4); Phosphorus 3.9 mg/dl (2.5-4.9); Potassium 4.9 mmol/L (3.5-5.1); Total Protein 6.4 gm/dl (6.0-8.3)
[2022-04-29 13:48] LABS: Basophils # (auto) 0.03 K/uL (0-0.2); Basophils % (auto) 0.4 %; Eosinophils # (auto) 0.06 K/uL (0-0.50); Eosinophils % (auto) 0.8 %; Hematocrit (blood only) 40.4 % (37.0-47.0); Immature Granulocytes # (auto) 0.02 K/uL (0.01-0.20); Immature Granulocytes % (auto) 0.3 %; Lymphocytes # (auto) 1.44 K/uL (1.2-3.4); Lymphocytes % (auto) 19.9 %; Mean Corpuscular Hemoglobin 30.8 pg (25.0-34.0); Mean Corpuscular Hgb Conc 34.7 g/dL (32.0-36.0); Mean Corpuscular Volume 88.8 fL (80.0-100.0); Mean Platelet Volume 9.8 fL (9.4-12.4); Monocytes # (auto) 0.44 K/uL (0.11-0.59); Monocytes % (auto) 6.1 %; Neutrophils # (auto) 5.25 K/uL (1.40-6.50); Neutrophils % (auto) 72.5 %; Platelet Count 284 K/uL (130-400); RDW Coefficient of Variation 11.6 % (11.5-14.5); RDW Standard Deviation 37.2 fL (36.4-46.3); Red Blood Count 4.55 M/uL (4.20-5.40); White Blood Count 7.24 K/ul (4.8-10.8)
[2022-04-29] MEDS ORDERED: OPTIRAY 350 100ml IV ONE (14:29)
--- NOTE | 2022-04-29 14:47 | CT Scan Report ---
ABDOMEN AND PELVIS CT WITH IV CONTRAST CT DOSE: 614.20 mGycm HISTORY: nausea, increased ostomy output TECHNIQUE: Multiaxial CT images of the abdomen and pelvis were performed following the use of intrave nous contrast. A dose lowering technique was utilized adhering to the principles of ALARA. COMPARISON STUDY: Abdomen and pelvis CT 04/14/2021. FINDINGS: Mild chronic interstitial thickening seen at the lung bases. There are multiple foci of gas both within and surrounding the majority of the small bowel loops. This has progressed in the interv al but favors a benign pneumatosis. In retrospect, this was present on the prior examination from . Severe degenerative disc disease at L1-L2, unchanged. No acute fractures identified. Small fat-con taining subumbilical hernia containing small foci of extrapleural gas within the herniated fat. Prior cholecystectomy. This likely accounts for the bile duct dilatation which remains stable. Hepatic abby atosis. Stable 1.7 cm hypodense lesion within the right hepatic lobe. This may represent a cyst or he mangioma. The pancreas, spleen, adrenal glands, and right kidney are unremarkable. Mild fullness with in the left renal collecting system without aleida hydronephrosis. There are small bilateral peripelvi c cysts again noted. No ureteral stones identified. The main portal vein is patent. Calcified plaque within the normal caliber abdominal aorta. The major mesenteric vessels appear patent. No retroperito kang or pelvic lymphadenopathy. The bladder, uterus, and adnexa are unremarkable. Colonic diverticulo sis within the residual sigmoid colon. There is a left lower quadrant colostomy again noted with a mo derate to large parastomal hernia containing multiple nondilated/nonobstructed loops of small bowel. This is similar to the prior study. No evidence for a bowel obstruction. Fluid-filled loops of small bowel again noted which remain unchanged. Normal appendix. IMPRESSION: 1. There are multiple foci of gas both within and surrounding the majority of the small bowel loops. This has progressed in the interval but favors a benign pneumatosis. An ischemic process is considere d less likely given the lack of bowel wall thickening or inflammatory change but is technically withi n the differential diagnosis. 2. 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 This is similar to the prior study. No evidence for a bowel obstruction at this time . 3. Colonic diverticulosis. No evidence for acute diverticulitis. 4. Fluid-filled loops of nondilated small bowel which can be seen in the setting of an ileus versus g astroenteritis. This is similar to the prior study. 5. Mild fullness within the left renal collecting system without aleida hydronephrosis. No ureteral st ones identified. 6. Additional findings as described above. ACT 112: Negative or not required by law. Electronically signed by: Arron Do M.D. 04/29/2022 2:46 PM
--- NOTE | 2022-04-29 15:24 | History & Physical Report ---
Date of Service April 29, 2022 Assessment & Plan (1) Hyponatremia: (2) Nausea: (3) History of diverticulitis: (4) Colostomy present: (5) HTN (hypertension): (6) Hypothyroidism: Plan This is a 86-year-old female with PMH of complicated diverticulitis with perforation status postsurgical resection in 2019 with colostomy, hypertension, hyperlipidemia, hypothyroidism, anemia and other medical problems listed below who presents with nausea, dehydration and generalized weakness and was found to have hyponatremia. Hypotonic hypovolemic hyponatremia Poor appetite and increased liquid ostomy output over the past 3 weeks. Symptomatic with mild confusion present, nauseated but no vomiting Initial sodium here 120 -serum osmolality low at 244, urine osmolality low at 256, urine sodium 44 Received 1 L of normal saline in ED. Urgent repeat BMP pending Consulted nephrology - will discuss plan with Dr. Kat once labs result Do not want to correct sodium any higher than 126 in the next [address] abdomen pelvis with evidence of pneumatosis History of emergent surgical resection with perforated diverticulitis at [facility] in 2019 Has had abnormal follow-up CT abdomen pelvis since then and is followed with surgery in outpatient setting-no additional surgical intervention has been recommended CT abd/pelvis with multiple foci of gas both within and surrounding the majority of the small bowel loops that has progressed in the interval but favors a benign pneumatosis Discussed with general surgery who evaluated patient and recommended conservative management and continued monitoring. Okay to have clear liquids Hypertension Given missed dose of amlodipine in the ED. Continue home Lopressor this evening Hypothyroidism Continue levothyroxine GERD Given Pepcid in ED. Continue Protonix, Pepcid DVT Ppx: SQ lovenox Code status: FULL PCP: Yu Dispo: Admitted to PCU Patient seen in collaboration with Dr. Haile. Please see addendum. A total of 75 minutes were spent with greater than 50% of that time face to face with the patient, personally reviewing all current laboratories, imaging studies, past medication reconciliation, outpatient chart review, and discussion with specialists to collaborate care for the patient with attending and utilization of translation services. Please see attending documentation for corrections and/or additions. History of Present Illness Chief Complaint: Nausea, weakness, increased ostomy output Primary Care Provider: Nahid Nicholas This is a 86-year-old female with PMH of complicated diverticulitis with perforation status postsurgical resection in 2019 with colostomy, hypertension, hyperlipidemia, hypothyroidism, anemia and other medical problems listed below who presents with nausea, dehydration and generalized weakness. Has had decreased oral intake over the past 3 weeks while also having intermittent increased liquid ostomy output. Has also been having intermittent nausea without vomiting. Primary care has been following low sodium labs in outpatient setting for the past 2 weeks and was due for repeat labs today, but daughter was concerned that mom was becoming generally weak and confused and brought to ED instead for further evaluation. Did feel better last evening and eat a meat pie last evening and had a more formed stool following but appetite has generally been poor. Continues to feel nauseated and weak. Denies any recent viral illnesses. No fever, chills, lightheadedness, chest pain, shortness of breath, vomiting, abdominal pain, dysuria or constipation. Has not been antibiotics recently. Did not take morning medications other than levothyroxine. Allergies Allergy/AdvReac Type Severity Reaction Status Date / Time codeine AdvReac Intermediate NAUSEA, Verified 01/25/22 14:04 VOMITING colchicine AdvReac Intermediate GI side Verified 01/25/22 14:04 effects fentanyl AdvReac Intermediate vomiting Verified 01/25/22 14:04 Home Medications Medication Instructions Recorded Confirmed Type famotidine 40 mg tablet (Pepcid) 40 mg PO BID 05/26/19 04/29/22 History levothyroxine 100 mcg tablet 100 mcg PO DAILYBB 05/26/19 04/29/22 History metoprolol tartrate 100 mg tablet 100 mg PO HS 05/26/19 04/29/22 History (Lopressor) nystatin 100,000 unit/gram topical 1 applic topical TID PRN RASH 07/18/19 04/29/22 History powder (Nystop) UNDER BREASTS pantoprazole 40 mg tablet,delayed 40 mg PO DAILY 07/23/19 04/29/22 History release (Protonix) amlodipine 10 mg tablet 10 mg PO DAILY 07/23/20 04/29/22 History calcitriol 0.25 mcg capsule 0.25 mcg PO Q OTHER DAY 07/23/20 04/29/22 History acetaminophen 500 mg tablet 1,000 mg PO Q8 PRN Pain 04/14/21 04/29/22 History roanwgbf-bff-jeejk ac 400 1 tab PO DAILY 04/14/21 04/29/22 History mcg-calcium carb 500 mg-vit K1 20 mcg tablet ondansetron HCl 4 mg tablet 4 mg PO TID PRN Nausea 04/18/21 04/29/22 History nitroglycerin 0.4 mg sublingual 0.4 mg sublingual UD PRN Chest Pain 04/29/22 04/29/22 History tablet Past Med/Surg History Medical History Abdominal pain Colostomy present Diverticulitis of colon with perforation Diverticulosis GERD (gastroesophageal reflux disease) Hiatal hernia HTN (hypertension) Hypothyroidism Surgical History Closed fracture of right proximal humerus Status post repair History of cataract surgery History of colostomy Hx of cholecystectomy Family History Sister Breast cancer Coronary heart disease Brother Coronary heart disease Other Hypertension Social History Smoking Status: Never smoker Hx Alcohol Use: No Hx Substance Use: No Preferred Language: Citizen Of [place] Communication Ability: Effective Gusset Edger Required: Yes Beliefs That Will Affect Care: Gnosticist marital status: / Current Living Situation: Alone How many Children do You have: 3 Feels Safe at Home: Yes Assistive Devices: Cane and Glasses Review of Systems Review of Systems: At least ten systems reviewed and negative except as noted in the HPI. Physical Exam Physical Exam: General Appearance: WD/WN, vitals as above, NAD, sitting up in bed, pleasant, conversing easily Head: normocephalic, atraumatic Eyes: normal inspection, PERRL, conjunctivae normal, anicteric sclerae ENT: external ear and nose normal, dry mucous membranes of oropharynx Neck: normal visual inspection, trachea midline, no thyromegaly Respiratory: normal respiratory effort, lungs clear to auscultation, no wheeze, rales, rhonchi. No accessory muscle use Cardiovascular: regular rate, rhythm, no murmur, normal peripheral pulses, no BLE edema. Vessels: no JVD Chest: normal inspection of chest Abdomen/GI: normal bowel sounds, soft, nontender, no hepatosplenomegaly Extremities/Musculoskeletal: no cyanosis or clubbing, extremities motor strength 5/5 Neurologic: PERRL, EOMI, accommodation nl, no face palsy, no dysarthria, CN's II-XI intact bilaterally and moves all extremities Psychiatric: A+Ox3, euthymic affect Skin: no rashes, normal color, warm/dry Results & Data Results & Data ([facility]) Vital Signs (Past 12 Hours) Vital Signs Temp Pulse Resp BP Pulse Ox O2 Del Method 04/29/22 13:50 72 17 173/71 H 97 Room Air 04/29/22 13:01 74 18 135/86 98 Room Air 04/29/22 12:40 64 16 184/69 H 97 Room Air 04/29/22 12:20 66 22 166/80 H 97 Room Air 04/29/22 12:00 64 17 154/62 H 96 Room Air 04/29/22 11:44 96 Room Air 04/29/22 11:36 66 04/29/22 11:10 36.3 C L 72 20 161/81 H 94 Room Air Laboratory Results Short CBC 04/29/22 04/29/22 Range/Units 11:40 12:43 WBC Cancelled 7.24 Hgb Cancelled 14.0 Hct Cancelled 40.4 Plt Count Cancelled 284 BMP 04/29/22 04/29/22 11:40 13:06 Sodium Cancelled 120 L Potassium Cancelled 4.9 Chloride Cancelled 90 L Carbon Dioxide Cancelled 25 BUN Cancelled 10 Creatinine Cancelled 0.58 L Glucose Cancelled 91 Calcium Cancelled 8.6 Liver Function 04/29/22 04/29/22 Range/Units 11:40 13:06 Total Bilirubin Cancelled 0.9 AST Cancelled 39 ALT Cancelled 36 Alkaline Phosphatase Cancelled 92 Albumin Cancelled 3.7 Urine 04/29/22 Range/Units 12:25 Urine Color Yellow Urine Appearance Clear (Clear) Urine pH 7.5 (4.5-7.5) Ur Specific [place] 1.007 (1.000-1.030) Urine Protein Negative (Negative) Urine Glucose (UA) Negative (Negative) Diagnostic Findings Chest X-Ray 04/29/22 11:21 XR chest 1V portable HISTORY: 86 years-old Female abdominal pain acute chest and abdominal pain COMPARISON: Chest radiograph 04/18/2021 TECHNIQUE: AP view of the chest FINDINGS: Cardiac mediastinal and hilar silhouettes are within normal limits. No pneumothorax, pleural effusion, airspace consolidation or overt pulmonary edema. Mild right hemidiaphragmatic elevation has improved from the prior study. Unchanged mild blunting of the costophrenic angles, likely secondary to scarring versus atelectasis. Degenerative changes of the spine and left shoulder. Reverse right shoulder total joint arthroplasty. IMPRESSION: No acute process. ACT 112: Negative or not required by law. The above report was generated using voice recognition software. It may contain grammatical, syntax or spelling errors. Electronically signed by: Alli Lama M.D. 04/29/2022 11:52 AM Abdomen/Pelvis CT 04/29/22 12:[address] WITH IV CONTRAST CT DOSE: 614.20 mGycm HISTORY: nausea, increased ostomy output TECHNIQUE: Multiaxial CT images of the abdomen and pelvis were performed following the use of intravenous contrast. A dose lowering technique was utilized adhering to the principles of ALARA. COMPARISON STUDY: Abdomen and pelvis CT 04/14/2021. FINDINGS: Mild chronic interstitial thickening seen at the lung bases. There are multiple foci of gas both within and surrounding the majority of the small bowel loops. This has progressed in the interval but favors a benign pneumatosis. In retrospect, this was present on the prior examination from 2021. Severe degenerative disc disease at L1-L2, unchanged. No acute fractures identified. Small fat-containing subumbilical hernia containing small foci of extrapleural gas within the herniated fat. Prior cholecystectomy. This likely accounts for the bile duct dilatation which remains stable. Hepatic steatosis. Stable 1.7 cm hypodense lesion within the right hepatic lobe. This may represent a cyst or hemangioma. The pancreas, spleen, adrenal glands, and right kidney are unremarkable. Mild fullness within the left renal collecting system without aleida hydronephrosis. There are small bilateral peripelvic cysts again noted. No ureteral stones identified. The main portal vein is patent. Calcified plaque within the normal caliber abdominal aorta. The major mesenteric vessels appear patent. No retroperitoneal or pelvic lymphadenopathy. The bladder, uterus, and adnexa are unremarkable. Colonic diverticulosis within the residual sigmoid colon. 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 This is similar to the prior study. No evidence for a bowel obstruction. Fluid-filled loops of small bowel again noted which remain unchanged. Normal appendix. IMPRESSION: 1. There are multiple foci of gas both within and surrounding the majority of the small bowel loops. This has progressed in the interval but favors a benign pneumatosis. An ischemic process is considered less likely given the lack of bowel wall thickening or inflammatory change but is technically within the differential diagnosis. 2. 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 This is similar to the prior study. No evidence for a bowel obstruction at this time. 3. Colonic diverticulosis. No evidence for acute diverticulitis. 4. Fluid-filled loops of nondilated small bowel which can be seen in the setting of an ileus versus gastroenteritis. This is similar to the prior study. 5. Mild fullness within the left renal collecting system without aleida h ydronephrosis. No ureteral stones identified. 6. Additional findings as described above. ACT 112: Negative or not required by law. Electronically signed by: Arron Do M.D. 04/29/2022 2:46 PM ECG Additional Comments: EKG independently reviewed and showing sinus rhythm with first-degree block at 60 bpm. Right bundle branch block present. Supervising Physician Co-Signing Physician Notes I have seen and examined the patient and have discussed the case with the provider above. I agree with the assessment and plan as stated. 86-year-old female with history of complicated diverticulitis status post perforation with colostomy in 2019 presents with 3 weeks of intermittent increased liquid ostomy output. She is also having intermittent nausea but no vomiting. She denied any fever or abdominal pain. Work-up reveals benign pneumatosis and possible ileus versus gastroenteritis. She is feeling better since normal saline has been administered. Her initial sodium of 120 has now risen to 124. Nephrology is involved. On exam she is in no acute distress and mentating normally. She is in good spirits and denies any nausea. Abdomen exam reveals a colostomy with a parastomal hernia that is reducible. She has no pain or tenderness or distention on her abdominal exam. Cardiac exam is unremarkable and pulmonary exam reveals clear breath sounds throughout. She is hypovolemic. Agree with plan for continuing normal saline at a small rate and trending sodium level overnight. Goal sodium in 24 hours is 126. Currently 124. This was signed out to the vice president risk management to follow. Stool culture is ordered however, there is no ostomy output today. She has not eaten anything today but states she is hungry. The surgeons have approved clear liquids for the time being. Continue supportive care. Mic, DO
[2022-04-29] MEDS ORDERED: NYSTATIN POWDER 15GM BTL EXT PRN (16:40)
[2022-04-29] MEDS ORDERED: amLODIPine BESYLATE 5 MG TAB PO ONE (17:00)
[2022-04-29 17:35] LABS: BUN Creatinine Ratio 13.6 (10-20); Calcium 8.6 mg/dl (8.5-10.1); Creatinine Clr Calc Pharmacy 58.1 ml/min; Est GFR (African American) 96.9 ml/min; Est GFR (Non-African American) 83.6 ml/min; Potassium 4.4 mmol/L (3.5-5.1)
--- NOTE | 2022-04-29 18:13 | Nephrology Consultation ---
Date of Consultation April 29, 2022 Assessment & Plan (1) Hyponatremia: hypovolemic hypotonic hyponatremia from increased ostomy output and decreased oral intake presenting sodium 120 on 04/29 at 1300 > improved to 124 by 1700 after 1L NS >goal sNa for tomorrow midday is 126 -maintain eukalemia -recommend resuming NS at lower rate of 50 mL / hr -For now no fluid limit, particularly while on liquid diet -strict I/O -check bmp q6-8 hrs History of Present Illness Reason for Consultation: hyponatremia Requesting Physician: Dr Haile Attending Physician: Dr Haile History of Present Illness 86 y/o F whom I'm asked to see for hyponatremia was admitted earlier this afternoon for management of same after her family brought her for evaluation of diminished mental status and generalized weakness. She has had 3 wks of poorer po intake and increased liquid ostomy output. Her non-[facility] primary care physician office had been following her for chronic hyponatremia in recent weeks. Those records are not available this evening in either [facility] or [place]. She was noted on presentation to have a serum sodium of [address] abdomen pelvis showing ileus versus gastroenteritis. PMH includes perforated diverticulitis s/p resection and colostomy, hypothyroidism, history of reflux esophagitis, iron deficiency anemia, pericarditis, remote history of C. difficile, 2019 history of Lyme disease, status postsurgical repair of right humeral fracture 2020 after a fall. 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 She lives alone with close family support, ambulates with a cane at baseline. She had a 48 hr stay here last month for gastroenteritis in the setting of increased ostomy output. She received a L of NS today > her presenting sodium of 120 went up to 124 w/ this measure; serum and urine osms are 244 and 256 respectively; urine sodium is 44. Surgery has evaluated the patient and is following; consult has yet to be finalized but unlikely at this time that this patient will require emergent or definitive surgical management. The patient's daughter is at bedside and assists with history today. Allergies Allergy/AdvReac Type Severity Reaction Status Date / Time codeine AdvReac Intermediate NAUSEA, Verified 01/25/22 14:04 VOMITING colchicine AdvReac Intermediate GI side Verified 01/25/22 14:04 effects fentanyl AdvReac Intermediate vomiting Verified 01/25/22 14:04 Home Medications Medication Instructions Recorded Confirmed Type famotidine 40 mg tablet (Pepcid) 40 mg PO BID 05/26/19 04/29/22 History levothyroxine 100 mcg tablet 100 mcg PO DAILYBB 05/26/19 04/29/22 History metoprolol tartrate 100 mg tablet 100 mg PO HS 05/26/19 04/29/22 History (Lopressor) nystatin 100,000 unit/gram topical 1 applic topical TID PRN RASH 07/18/19 04/29/22 History powder (Nystop) UNDER BREASTS pantoprazole 40 mg tablet,delayed 40 mg PO DAILY 07/23/19 04/29/22 History release (Protonix) amlodipine 10 mg tablet 10 mg PO DAILY 07/23/20 04/29/22 History calcitriol 0.25 mcg capsule 0.25 mcg PO Q OTHER DAY 07/23/20 04/29/22 History acetaminophen 500 mg tablet 1,000 mg PO Q8 PRN Pain 04/14/21 04/29/22 History puepvmwv-wyw-ehvvi ac 400 1 tab PO DAILY 04/14/21 04/29/22 History mcg-calcium carb 500 mg-vit K1 20 mcg tablet ondansetron HCl 4 mg tablet 4 mg PO TID PRN Nausea 04/18/21 04/29/22 History nitroglycerin 0.4 mg sublingual 0.4 mg sublingual UD PRN Chest Pain 04/29/22 04/29/22 History tablet Patient History Medical History (Updated 04/29/22 @ 18:34 by Mary Hugo PA-C) Abdominal pain Colostomy present Diverticulitis of colon with perforation Diverticulosis GERD (gastroesophageal reflux disease) Hiatal hernia HTN (hypertension) Hypothyroidism Surgical History (Updated 04/29/22 @ 19:10 by Janice Kat MD, PhD) Closed fracture of right proximal humerus Status post repair History of cataract surgery History of colostomy Hx of cholecystectomy Family History Sister Breast cancer Coronary heart disease Brother Coronary heart disease Other Hypertension Social History Smoking Status: Never smoker Hx Alcohol Use: No Hx Substance Use: No Preferred Language: Mongolian Communication Ability: Effective Health Club Attendant Required: Yes Beliefs That Will Affect Care: Mu-Ism marital status: / Current Living Situation: Alone How many Children do You have: 3 Feels Safe at Home: Yes Assistive Devices: Cane and Glasses Review of Systems Review of Systems: All systems reviewed & are unremarkable except as noted in HPI & below Physical Exam Constitutional: well developed, well nourished, + thin and cooperative; no acute distress and no altered mental status Eyes: EOM intact bilaterally ENMT: Ears: no external ear abnormality Nose: no external nose abnormality Mouth: + dry oral mucous membranes Neck: no nuchal rigidity Respiratory: normal respiratory effort Auscultation: + diminished lung sounds and + crackles (Bibasilar) Cardiovascular: RRR, no murmur, no edema Gastrointestinal (Abdomen): Inspection/Auscultation: abdomen normal to inspection (Ostomy right lower quadrant) and normal bowel sounds Percussio n/Palpation: abdomen soft; abdomen nontender Musculoskeletal: Extremities: strength 5/5 throughout Skin: no rashes, warm and dry Neurologic: davis, fluent speech, no tremor Psychiatric: Orientation: alert and oriented x 3 Speech: normal rate/rhythm/volume of speech Results & Data ([facility]) Vital Signs (Past 12 Hours) Vital Signs Temp Pulse Pulse Resp BP BP Pulse Ox 04/29/22 17:31 75 144/73 H 93 04/29/22 17:00 71 19 145/65 H 94 04/29/22 16:30 75 24 156/70 H 93 04/29/22 16:20 69 14 168/62 H 94 04/29/22 13:50 72 17 173/71 H 97 04/29/22 13:01 74 18 135/86 98 04/29/22 12:40 64 16 184/69 H 97 04/29/22 12:20 66 22 166/80 H 97 04/29/22 12:00 64 17 154/62 H 96 04/29/22 11:44 96 04/29/22 11:36 66 04/29/22 11:10 36.3 C L 72 20 161/81 H 94 O2 Del Method 04/29/22 17:31 Room Air 04/29/22 17:00 Room Air 04/29/22 16:30 Room Air 04/29/22 16:20 03/02/23 13:50 Room Air 04/29/22 13:01 Room Air 04/29/22 12:40 Room Air 04/29/22 12:20 Room Air 04/29/22 12:00 Room Air 04/29/22 11:44 Room Air 04/29/22 11:36 04/29/22 11:10 Room Air Laboratory Results 04/29/22 12:43 04/29/22 16:49 TSH within normal limits Diagnostic Findings CT a/p w/ con IV FINDINGS: Mild chronic interstitial thickening seen at the lung bases. There are multiple foci of gas both within and surrounding the majority of the small bowel loops. This has progressed in the interval but favors a benign pneumatosis. In retrospect, this was present on the prior examination from 2021. Severe degenerative disc disease at L1-L2, unchanged. No acute fractures identified. Small fat-containing subumbilical hernia containing small foci of extrapleural gas within the herniated fat. Prior cholecystectomy. This likely accounts for the bile duct dilatation which remains stable. Hepatic steatosis. Stable 1.7 cm hypodense lesion within the right hepatic lobe. This may represent a cyst or hemangioma. The pancreas, spleen, adrenal glands, and right kidney are unremarkable. Mild fullness within the left renal collecting system without aleida hydronephrosis. There are small bilateral peripelvic cysts again noted. No ureteral stones identified. The main portal vein is patent. Calcified plaque within the normal caliber abdominal aorta. The major mesenteric vessels appear patent. No retroperitoneal or pelvic lymphadenopathy. The bladder, uterus, and adnexa are unremarkable. Colonic diverticulosis within the residual sigmoid colon. 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 This is similar to the prior study. No evidence for a bowel obstruction. Fluid-filled loops of small bowel again noted which remain unchanged. Normal appendix. IMPRESSION: 1. There are multiple foci of gas both within and surrounding the majority of the small bowel loops. This has progressed in the interval but favors a benign pneumatosis. An ischemic process is considered less likely given the lack of bowel wall thickening or inflammatory change but is technically within the differential diagnosis. 2. 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 This is similar to the prior study. No evidence for a bowel obstruction at this time. 3. Colonic diverticulosis. No evidence for acute diverticulitis. 4. Fluid-filled loops of nondilated small bowel which can be seen in the setting of an ileus versus gastroenteritis. This is similar to the prior study. 5. Mild fullness within the left renal collecting system without aleida hydronephrosis. No ureteral stones identified. 6. Additional findings as described above. cxr > no acute process
--- NOTE | 2022-04-29 18:15 | Surgery Consultation ---
This case has been discussed in detail with our FELICITA's. I agree with this assessment and plan. Date of Consultation April 29, 2022 Assessment & Plan (1) Pneumatosis of intestines: This is an 86y F with a PMH of perforated diverticulitis with colostomy formation, hypothyroid, HTN who presents to the [facility] ED on 04/29/22 with worsening fatigue and mild nausea, increased output from colostomy, along with hyponatremia. She admits to mild nausea today which prompted a CT scan which showed evidence of gas within and surrounding the small bowel that has progressed since her last CT scan, but favors to be a benign pneumatosis. She also has a known parastomal hernia containing loops of small bowel without evidence of bowel obstruction. In addition, she has findings of ileus vs gastroenteritis. Patient's vital signs are stable. Labs notable for WBC 7.2, Na low at 120, K 4.9, Cr: 0.5. On exam abdomen is soft, non tender, viable ostomy noted without stool currently in bag, and evidence of parastomal hernia without tenderness to palpation. Apparently patient had evidence of pneumatosis on previous CT scan, and favors a benign pneumatosis. No evidence or overt concern for ischemic or threatened bowel at this time. She is currently stable and abdominal exam is benign for acute abnormalities. Would treat patient with a course of supportive care. Likely most of symptoms related to dehydration and concern for gastroenteritis. Recommend IVF resuscitation, correction of electrolyte abnormalities, and okay for clear liquid diet for now. Can consider sending off stool studies for diarrheal illness in the setting of loose stools over the last few weeks. Will follow along for now, but no plans for any urgent surgical intervention indicated at this time. History of Present Illness History of Present Illness This is an 86y F with a PMH of perforated diverticulitis with colostomy formation, hypothyroid, HTN who presents to the [facility] ED on 04/29/22 with worsening fatigue and mild nausea. Her PCP has been following the patient for hyponatremia and instead of getting labs today as was scheduled, the patient's daughter brought her in to the ER to get a "tune-up" and due to concern for dehydration. According to the patient and daughter she has had a decrease in appetite with intermittent increases in liquid stool output from her ostomy over the last 3 weeks. She admits to mild nausea today which prompted a CT scan which showed evidence of gas within and surrounding the small bowel that has progressed since her last CT scan, but favors to be a benign pneumatosis. She also has a known parastomal hernia containing loops of small bowel without evidence of bowel obstruction. Also has findings of ileus vs gastroenteritis. Currently to me she denies any further nausea, no abdominal pain, no blood in the stool, no CP or SOB. Has been working on her water intake in addition to Pedialyte to keep hydrated at home. Past surgical history includes colostomy for perforated diverticulitis at [facility] 2019 and a cholecystectomy to her knowledge. Patient lives at home alone, she is independent, and has a lot of family support. Allergies Allergy/AdvReac Type Severity Reaction Status Date / Time codeine AdvReac Intermediate NAUSEA, Verified 01/25/22 14:04 VOMITING colchicine AdvReac Intermediate GI side Verified 01/25/22 14:04 effects fentanyl AdvReac Intermediate vomiting Verified 01/25/22 14:04 Home Medications Medication Instructions Recorded Confirmed Type famotidine 40 mg tablet (Pepcid) 40 mg PO BID 05/26/19 04/29/22 History levothyroxine 100 mcg tablet 100 mcg PO DAILYBB 05/26/19 04/29/22 History metoprolol tartrate 100 mg tablet 100 mg PO HS 05/26/19 04/29/22 History (Lopressor) nystatin 100,000 unit/gram topical 1 applic topical TID PRN RASH 07/18/19 04/29/22 History powder (Nystop) UNDER BREASTS pantoprazole 40 mg tablet,delayed 40 mg PO DAILY 07/23/19 04/29/22 History release (Protonix) amlodipine 10 mg tablet 10 mg PO DAILY 07/23/20 04/29/22 History calcitriol 0.25 mcg capsule 0.25 mcg PO Q OTHER DAY 07/23/20 04/29/22 History acetaminophen 500 mg tablet 1,000 mg PO Q8 PRN Pain 04/14/21 04/29/22 History wcdrfsaz-lto-losix ac 400 1 tab PO DAILY 04/14/21 04/29/22 History mcg-calcium carb 500 mg-vit K1 20 mcg tablet ondansetron HCl 4 mg tablet 4 mg PO TID PRN Nausea 04/18/21 04/29/22 History nitroglycerin 0.4 mg sublingual 0.4 mg sublingual UD PRN Chest Pain 04/29/22 04/29/22 History tablet Patient History Medical History Abdominal pain Colostomy present Diverticulitis of colon with perforation Diverticulosis GERD (gastroesophageal reflux disease) Hiatal hernia HTN (hypertension) Hypothyroidism Surgical History Closed fracture of right proximal humerus Status post repair History of cataract surgery History of colostomy Hx of cholecystectomy Family History Sister Breast cancer Coronary heart disease Brother Coronary heart disease Other Hypertension Social History Smoking Status: Never smoker Second Hand Exposure: Yes; Do You Dip or Chew Tobacco: No; Hx Alcohol Use: No Hx Substance Use: No Preferred Language: Canadian Communication Ability: Effective 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 Beliefs That Will Affect Care: None marital status: / Current Living Situation: Alone How many Children do You have: 3 Other Information That Helps Us Care for You: No Feels Safe at Home: Yes Safety Concerns: Feels Safe At This Time Assistive Devices: Cane, Denture - Upper, Denture - Lower and Glasses Review of Systems Constitutional: + fatigue and + weakness; no fever and no chills Respiratory: no dyspnea Cardiovascular: no chest pain Gastrointestinal: + nausea and + diarrhea/loose stools; no abdominal pain, no bloating, no vomiting and no blood in stools Physical Exam Physical Exam: awake/alert, no distress Respiratory: normal respiratory effort Cardiovascular: Rate/Rhythm: regular rate Gastrointestinal (Abdomen): Inspection/Auscultation: + abdominal surgical scar (midline and paramidline); abdomen not distended Percussion/Palpation: abdomen soft and + hernia (+ parastomal hernia, nontender); abdomen nontender + viable ostomy to L mid abdomen, no stool currently in bag Results & Data ([facility]) Vital Signs (Past 12 Hours) Vital Signs Temp Pulse Pulse Resp BP BP Pulse Ox 04/29/22 17:31 75 144/73 H 93 04/29/22 17:00 71 19 145/65 H 94 04/29/22 16:30 75 24 156/70 H 93 04/29/22 16:20 69 14 168/62 H 94 04/29/22 13:50 72 17 173/71 H 97 04/29/22 13:01 74 18 135/86 98 04/29/22 12:40 64 16 184/69 H 97 04/29/22 12:20 66 22 166/80 H 97 04/29/22 12:00 64 17 154/62 H 96 04/29/22 11:44 96 04/29/22 11:36 66 04/29/22 11:10 36.3 C L 72 20 161/81 H 94 O2 Del Method 04/29/22 17:31 Room Air 04/29/22 17:00 Room Air 04/29/22 16:30 Room Air 04/29/22 16:20 04/29/22 13:50 Room Air 04/29/22 13:01 Room Air 04/29/22 12:40 Room Air 04/29/22 12:20 Room Air 04/29/22 12:00 Room Air 04/29/22 11:44 Room Air 04/29/22 11:36 04/29/22 11:10 Room Air Diagnostic Findings ABDOMEN AND PELVIS CT WITH IV CONTRAST CT DOSE: 614.20 mGycm HISTORY: nausea, increased ostomy output TECHNIQUE: Multiaxial CT images of the abdomen and pelvis were performed following the use of intravenous contrast. A dose lowering technique was utilized adhering to the principles of ALARA. COMPARISON STUDY: Abdomen and pelvis CT 04/14/2021. FINDINGS: Mild chronic interstitial thickening seen at the lung bases. There are multiple foci of gas both within and surrounding the majority of the small bowel loops. This has progressed in the interval but favors a benign pneumatosis. In retrospect, this was present on the prior examination from 2021. Severe degenerative disc disease at L1-L2, unchanged. No acute fractures identified. Small fat-containing subumbilical hernia containing small foci of extrapleural gas within the herniated fat. Prior cholecystectomy. This likely accounts for the bile duct dilatation which remains stable. Hepatic steatosis. Stable 1.7 cm hypodense lesion within the right hepatic lobe. This may represent a cyst or hemangioma. The pancreas, spleen, adrenal glands, and right kidney are unremarka ble. Mild fullness within the left renal collecting system without aleida hydronephrosis. There are small bilateral peripelvic cysts again noted. No ureteral stones identified. The main portal vein is patent. Calcified plaque within the normal caliber abdominal aorta. The major mesenteric vessels appear patent. No retroperitoneal or pelvic lymphadenopathy. The bladder, uterus, and adnexa are unremarkable. Colonic diverticulosis within the residual sigmoid colon. 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 This is similar to the prior study. No evidence for a bowel obstruction. Fluid-filled loops of small bowel again noted which remain unchanged. Normal appendix. IMPRESSION: 1. There are multiple foci of gas both within and surrounding the majority of the small bowel loops. This has progressed in the interval but favors a benign pneumatosis. An ischemic process is considered less likely given the lack of bowel wall thickening or inflammatory change but is technically within the differential diagnosis. 2. 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 This is similar to the prior study. No evidence for a bowel obstruction at this time. 3. Colonic diverticulosis. No evidence for acute diverticulitis. 4. Fluid-filled loops of nondilated small bowel which can be seen in the setting of an ileus versus gastroenteritis. This is similar to the prior study. 5. Mild fullness within the left renal collecting system without aleida hydronephrosis. No ureteral stones identified. 6. Additional findings as described above. ACT 112: Negative or not required by law. Electronically signed by: Arron Do M.D. 04/29/2022 2:46 PM PG Care Time/CCT Total # of Minutes Spent Total Time Spent with Patient: Total time spent is greater than 50% in coordination of care (as documented) at patient's floor/unit and/or counseling patient: Coding Level of Care Code 05868 INT INP/OBS CARE 2MIN Diagnoses Pneumatosis of intestines K63.89
[2022-04-29] MEDS ORDERED: SODIUM CHLORIDE 0.9% 1000ML 1,000 ML IV SCH (19:15)
[2022-04-29] MEDS ORDERED: POLYETHYLENE (MIRALAX) 17 GM PACK PO PRN (20:49)
[2022-04-29] MEDS: FAMOTIDINE 40 MG TABLET PO SCH (22:18)
[2022-04-29] MEDS: METOPROLOL SUCC 50MG EXT REL TAB PO SCH (22:18)
[2022-04-29] MEDS: ENOXAPARIN INJ 40 MG/0.4 ML SYR SQ SCH (22:19)
[2022-04-29 23:39] LABS: BUN Creatinine Ratio 13.1 (10-20); Calcium 8.4 mg/dl (8.5-10.1); Creatinine Clr Calc Pharmacy 55.9 ml/min; Est GFR (African American) 95.8 ml/min; Est GFR (Non-African American) 82.7 ml/min; Potassium 4.2 mmol/L (3.5-5.1)
[2022-04-30 00:58] LABS: Adenovirus F 40/41 PCR Not Detected (NotDetected); Astrovirus PCR Not Detected (NotDetected); Campylobacter PCR Not Detected (NotDetected); Cryptosporidium PCR Not Detected (NotDetected); Cyclospora cayetanensis PCR Not Detected (NotDetected); Entamoeba histolytica PCR Not Detected (NotDetected); Enteroaggregative E.coli(EAEC) Not Detected (NotDetected); Enteropathogenic E.coli (EPEC) Not Detected (NotDetected); Enterotoxigenic E.coli (ETEC) Not Detected (NotDetected); Giardia lamblia PCR Not Detected (NotDetected); Norovirus GI/GII PCR Not Detected (NotDetected); Plesiomonas shigelloides PCR Not Detected (NotDetected); Rotavirus A PCR Not Detected (NotDetected); Salmonella PCR Not Detected (NotDetected); Sapovirus PCR Not Detected (NotDetected); Shiga-like Toxin E.coli (STEC) Not Detected (NotDetected); Shigella/Enteroinvasive E.coli Not Detected (NotDetected); Vibrio cholerae PCR Not Detected (NotDetected); Vibrio species PCR Not Detected (NotDetected); Yersinia enterocolitica PCR Not Detected (NotDetected)
--- NOTE | 2022-04-30 05:25 | Electrocardiogram Report ---
Test Reason : Blood Pressure : / mmHG Vent. Rate : 068 BPM Atrial Rate : 068 BPM P-R Int : 218 ms QRS Dur : 132 ms QT Int : 426 ms P-R-T Axes : 028 -13 008 degrees QTc Int : 452 ms Sinus rhythm with 1st degree A-V block Right bundle branch block Abnormal ECG When compared with ECG of 18-APR-2021 19:29, T wave inversion no longer evident in Anterior leads Confirmed by Lawrence Pinto ([id number]) on 04/30/2022 5:25:02 AM Referred By: REFERRED SELF Confirmed By:Lawrence Pinto
[2022-04-30] MEDS: LEVOTHYROXINE SODIUM 100 MCG TABLET PO SCH (06:29)
[2022-04-30 07:33] LABS: Hematocrit (blood only) 35.6 % (37.0-47.0); Hemoglobin 12.6 g/dl (12.0-16.0); Mean Corpuscular Hemoglobin 30.7 pg (25.0-34.0); Mean Corpuscular Hgb Conc 35.4 g/dL (32.0-36.0); Mean Corpuscular Volume 86.6 fL (80.0-100.0); Mean Platelet Volume 9.6 fL (9.4-12.4); Platelet Count 262 K/uL (130-400); RDW Coefficient of Variation 11.7 % (11.5-14.5); RDW Standard Deviation 37.2 fL (36.4-46.3); Red Blood Count 4.11 M/uL (4.20-5.40)
--- NOTE | 2022-04-30 07:41 | Communication Note ---
Date of Service: April 30, 2022 Last night stopped fluids as Sodium increased to 126. THanks
[2022-04-30 08:02] LABS: BUN Creatinine Ratio 12.3 (10-20); Calcium 8.9 mg/dl (8.5-10.1); Creatinine Clr Calc Pharmacy 52.4 ml/min; Est GFR (African American) 93.8 ml/min; Potassium 4.4 mmol/L (3.5-5.1)
[2022-04-30] MEDS: FAMOTIDINE 40 MG TABLET PO SCH ×2 (09:18→20:03)
[2022-04-30] MEDS: CEROVITE ADV FORMULA TAB PO SCH (09:18)
[2022-04-30] MEDS: CALCITRIOL 0.25 MCG CAPSULE PO SCH (09:18)
[2022-04-30] MEDS: amLODIPine BESYLATE 5 MG TAB PO SCH (09:18)
[2022-04-30] MEDS: PANTOprazole 40 MG TAB PO SCH (09:18)
--- NOTE | 2022-04-30 10:21 | Surgery Progress Note ---
I have discussed this case with the surgical PA and saw the patient with the PA this am. The patient I believe has chronic bowel changes secondary to her significant parastomal hernia. Her abdomen is completely benign. She has never had abdominal pain. She says she felt "sick in her stomach" for one episode that was relieved with antiemetic in the ED and has not returned. Her colostomy is functioning with both air and stool being expelled. No acute surgical problem present. Date of Service April 30, 2022 Assessment & Plan (1) Pneumatosis of intestines: Plan: Patient admitted here w/ fatigue, hyponatremia, mild nausea with CT scan showing pneumatosis patient is stable, no current abdominal complaints stool studies negative thus far abdomen soft, non tender, known soft parastomal hernia. + ostomy functioning without evidence of obstruction will advance diet as tolerates no plans for surgical intervention we will sign off, but call back if any questions/concerns. mauricio covering the wknd if issues Admission and Anticipated Discharge Date Admission Date: April 29, 2022 Subjective Patient is feeling well. Denies abdominal pain. No further episodes of nausea. Reports her ostomy is functioning. Is hungry. Physical Exam Physical Exam: awake/alert, no distress Gastrointestinal (Abdomen): Inspection/Auscultation: + abdominal surgical scar; abdomen not distended Percussion/Palpation: abdomen soft; abdomen nontender ostomy viable, gas in bag, stool output documented from overnight Results & Data ([facility]) Vital Signs (Past 12 Hours) Vital Signs Temp Pulse Pulse Resp BP Pulse Ox O2 Del Method 04/30/22 08:14 36.7 C 69 18 129/77 97 Room Air 04/30/22 08:00 64 04/30/22 03:26 36.6 C 68 18 110/67 94 Room Air 04/29/22 23:00 36.5 C 70 18 134/73 95 Room Air PG Care Time/CCT Total # of Minutes Spent Total Time Spent with Patient: Total time spent is greater than 50% in coordination of care (as documented) at patient's floor/unit and/or counseling patient: Coding Level of Care Code 18833 SUB INP/OBS CARE 25MIN Diagnoses Pneumatosis of intestines K63.89
--- NOTE | 2022-04-30 11:34 | Nephrology Progress Note ---
Date of Service April 30, 2022 Assessment & Plan (1) Hyponatremia: Plan: hypovolemic hypotonic hyponatremia from increased ostomy output and decreased oral intake presenting sodium 120 on 04/29 at 1300 > improved to 127 today -maintain eukalemia -No need for IV fluids at the moment -For now no fluid limit, particularly while on liquid diet -strict I/O -check bmp daily Admission and Anticipated Discharge Date Admission Date: April 29, 2022 Subjective Seen for hyponatremia. She feels better today. Output from the ostomy is improving Review of Systems Review of Systems: All other systems were reviewed and negative except as noted in HPI Physical Exam Physical Exam: General exam: Appears comfortable, no acute distress HEENT: Pupils are equal and reactive to light Neck: No JVD, neck is supple trachea is midline Respiratory system: Clear breath sounds bilaterally. Gastrointestinal: Abdomen is soft, non distended, non tender, bowel sounds are p resent CVS: Regular rate and rhythm. No murmurs, rubs or gallops Musculoskeletal: No joint or muscle tenderness Extremities: Non tender, no edema, peripheral pulses are present Neuro: Oriented, no tremors, no focal neurological deficits Skin: No rashes Results & Data ([facility]) Vital Signs (Past 12 Hours) Vital Signs Temp Pulse Pulse Resp BP Pulse Ox O2 Del Method 04/30/22 08:14 36.7 C 69 18 129/77 97 Room Air 04/30/22 08:00 64 04/30/22 03:26 36.6 C 68 18 110/67 94 Room Air Laboratory Results 04/30/22 06:59 04/29/22 04/29/22 04/29/22 11:40 11:40 12:43 WBC Cancelled 7.24 RBC Cancelled 4.55 MCV Cancelled 88.8 MCH Cancelled 30.8 MCHC Cancelled 34.7 RDW Std Deviation Cancelled 37.2 RDW Coeff of Grecia Cancelled 11.6 Plt Count Cancelled 284 MPV Cancelled 9.8 Nucleated RBC % Cancelled Phosphorus Cancelled Albumin Cancelled 04/29/22 04/30/22 13:06 06:59 WBC 5.50 RBC 4.11 L MCV 86.6 MCH 30.7 MCHC 35.4 RDW Std Deviation 37.2 RDW Coeff of Grecia 11.7 Plt Count 262 MPV 9.6 Nucleated RBC % Phosphorus 3.9 Albumin 3.7
--- NOTE | 2022-04-30 16:04 | Hospitalist Progress Note ---
Date of Service April 30, 2022 Assessment & Plan (1) Hyponatremia: (2) Nausea: (3) History of diverticulitis: (4) Colostomy present: (5) HTN (hypertension): (6) Hypothyroidism: Plan Patient is an 86 yr female with H/O complicated diverticulitis with perforation status postsurgical resection in 2019 with colostomy, hypertension, hyperlipidemia, hypothyroidism, anemia and other medical problems listed below who presents with nausea, dehydration and generalized weakness and was found to have hyponatremia. Hypotonic hypovolemic hyponatremia Poor appetite and increased liquid ostomy output over the past 3 weeks. Initial sodium here 120 -serum osmolality low at 244, urine osmolality low at 256, urine sodium 44 Sodium levels improved to 127 today Received IV fluids Appreciate nephrology input Advance diet as tolerated Monitor BMP Acute metabolic encephalopathy-POA Likely secondary to hyponatremia Resolved Pneumatosis of intestine H/O emergent surgical resection with perforated diverticulitis at [facility] in 2019 --CT abd/pelvis with multiple foci of gas both within and surrounding the majority of the small bowel loops that has progressed in the interval but favors a benign pneumatosis --Appreciate surgery input:chronic bowel changes secondary to significant parastomal hernia -- Colostomy is functioning Small frequent meals recommended No indication for any surgery Advance diet as tolerated Hypertension Continue amlodipine, metoprolol Hypothyroidism Continue levothyroxine GERD Continue Protonix, Pepcid DVT Px: SQ Lovenox Code status: FULL CODE Admission and Anticipated Discharge Date Admission Date: April 29, 2022 Subjective Patient is seen and examined at bedside States feeling well today Sodium levels improved to 127 Denies any abdominal pain, nausea, vomiting, chest pain, dyspnea Discussed with surgery today No other complaints Review of Systems Review of Systems: All systems reviewed & are unremarkable except as noted in Subjective Physical Exam Physical Exam: Physical Exam: Vitals signs as noted above General Appearance:Moderately built and nourished, no apparent distress Head: normocephalic, Atraumatic Eyes: normal inspection, EOMI Neck: supple, Trachea midline Respiratory/Chest: Normal breath sounds, CTA, No accessory muscle use Cardiovascular: S1, S2, No murmur Abdomen/GI:Soft, Non tender, +Colostomy, +Abd Hernia, Bowel sounds present Extremities/Musculoskeletal:normal inspection, no edema Neurologic/Psych:AAOX3, grossly no focal neurological deficits Skin: normal color, warm Results & Data Results & Data ([facility]) Vital Signs (Past 12 Hours) Vital Signs Temp Pulse Pulse Resp BP Pulse Ox O2 Del Method 04/30/22 15:41 37.2 C 66 19 131/68 96 Room Air 04/30/22 12:00 36.8 C 70 18 124/71 94 Room Air 04/30/22 08:14 36.7 C 69 18 129/77 97 Room Air 04/30/22 08:00 64 Laboratory Results Short CBC 04/30/22 Range/Units 06:59 WBC 5.50 (4.8-10.8) K/ul Hgb 12.6 (12.0-16.0) g/dl Hct 35.6 L (37.0-47.0) % Plt Count 262 (130-400) K/uL BMP 04/29/22 04/29/22 04/30/22 16:49 22:53 06:59 Sodium 124 L 126 L 127 L Potassium 4.4 4.2 4.4 Chloride 93 L 96 L 97 L Carbon Dioxide 24 24 25 BUN 8 8 8 Creatinine 0.59 L 0.61 0.65 Glucose 96 99 94 Calcium 8.6 8.4 L 8.9
[2022-04-30] MEDS: ENOXAPARIN INJ 40 MG/0.4 ML SYR SQ SCH (20:02)
[2022-04-30] MEDS: METOPROLOL SUCC 50MG EXT REL TAB PO SCH (20:03)
[2022-04-30 23:47] LABS: BUN Creatinine Ratio 13.2 (10-20); Calcium 8.8 mg/dl (8.5-10.1); Creatinine Clr Calc Pharmacy 44.8 ml/min; Est GFR (African American) 82.9 ml/min; Est GFR (Non-African American) 71.5 ml/min; Potassium 4.3 mmol/L (3.5-5.1)
[2022-05-01] MEDS: LEVOTHYROXINE SODIUM 100 MCG TABLET PO SCH (05:41)
[2022-05-01 06:36] LABS: Hematocrit (blood only) 39.6 % (37.0-47.0); Hemoglobin 13.8 g/dl (12.0-16.0); Mean Corpuscular Hemoglobin 31.2 pg (25.0-34.0); Mean Corpuscular Hgb Conc 34.8 g/dL (32.0-36.0); Mean Corpuscular Volume 89.6 fL (80.0-100.0); Mean Platelet Volume 10.9 fL (9.4-12.4); Platelet Count 227 K/uL (130-400); RDW Coefficient of Variation 11.9 % (11.5-14.5); RDW Standard Deviation 38.4 fL (36.4-46.3); Red Blood Count 4.42 M/uL (4.20-5.40); White Blood Count 5.36 K/ul (4.8-10.8)
[2022-05-01] MEDS: FAMOTIDINE 40 MG TABLET PO SCH ×2 (08:00→20:22)
[2022-05-01] MEDS: amLODIPine BESYLATE 5 MG TAB PO SCH (08:00)
[2022-05-01] MEDS: CEROVITE ADV FORMULA TAB PO SCH (08:00)
[2022-05-01] MEDS: ACETAMINOPHEN 325 MG TAB PO PRN ×2 (08:00→19:14)
[2022-05-01] MEDS: PANTOprazole 40 MG TAB PO SCH (08:00)
[2022-05-01 09:48] LABS: BUN Creatinine Ratio 16.2 (10-20); Calcium 9.2 mg/dl (8.5-10.1); Creatinine Clr Calc Pharmacy 46.1 ml/min; Est GFR (African American) 85.6 ml/min; Est GFR (Non-African American) 73.9 ml/min; Magnesium 1.9 mg/dl (1.7-2.4); Potassium 4.2 mmol/L (3.5-5.1)
--- NOTE | 2022-05-01 10:59 | Nephrology Progress Note ---
Date of Service May 01, 2022 Assessment & Plan (1) Hyponatremia: Plan: hypovolemic hypotonic hyponatremia from increased ostomy output and decreased oral intake presenting sodium 120 on 04/29 at 1300 > improved to 129 today. From renal standpoint patient can be discharged with repeat BMP early next week and renal follow-up next week -maintain eukalemia -Fluid limit to 1.5 L daily -strict I/O Admission and Anticipated Discharge Date Admission Date: April 29, 2022 Subjective Seen for hyponatremia. She feels better today. Sodium uptrending to 129. She is interested in going home Review of Systems Review of Systems: All other systems were reviewed and negative except as noted in HPI Physical Exam Physical Exam: General exam: Appears comfortable, no acute distress HEENT: Pupils are equal and reactive to light Neck: No JVD, neck is supple trachea is midline Respiratory system: Clear breath sounds bilaterally. Gastrointestinal: Abdomen is soft, non distended, non tender, bowel sounds are present CVS: Regular rate and rhythm. No murmurs, rubs or gallops Musculoskeletal: No joint or muscle tenderness Extremities: Non tender, no edema, peripheral pulses are present Neuro: Oriented, no tremors, no focal neurological deficits Skin: No rashes Results & Data ([facility]) Vital Signs (Past 12 Hours) Vital Signs Temp Pulse Pulse Resp BP Pulse Ox O2 Del Method 05/01/22 07:36 62 05/01/22 07:29 36.5 C 61 16 143/80 H 96 Room Air 05/01/22 03:02 36.5 C 69 20 137/82 98 Room Air 04/30/22 23:00 36.7 C 64 18 143/70 H 94 Room Air Laboratory Results 05/01/22 05:36 05/01/22 05:36 WBC 5.36 RBC 4.42 MCV 89.6 MCH 31.2 MCHC 34.8 RDW Std Deviation 38.4 RDW Coeff of Grecia 11.9 Plt Count 227 MPV 10.9
--- NOTE | 2022-05-01 16:53 | Hospitalist Progress Note ---
Date of Service May 01, 2022 Assessment & Plan (1) Hyponatremia: (2) Nausea: (3) History of diverticulitis: (4) Colostomy present: (5) HTN (hypertension): (6) Hypothyroidism: Plan 86 yr female with H/O complicated diverticulitis with perforation status postsurgical resection in 2019 with colostomy, hypertension, hyperlipidemia, hypothyroidism, anemia and other medical problems listed below who presents with nausea, dehydration and generalized weakness and was found to have hyponatremia. 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 Admitting Na of 120 -serum osmolality low at 244, urine osmolality low at 256, urine sodium 44 Sodium levels improved to 129 today Appreciate nephrology input, FR 1.5 L Advance diet as tolerated Monitor BMP. Pt w/ improving diet and stoma output forming up. Acute metabolic encephalopathy-POA: Likely secondary to hyponatremia. Resolved Pneumatosis of intestine H/O emergent surgical resection with perforated diverticulitis at [facility] in 2019 --CT abd/pelvis with multiple foci of gas both within and surrounding the majority of the small bowel loops that has progressed in the interval but favors a benign pneumatosis --Appreciate surgery input:chronic bowel changes secondary to significant parastomal hernia -- Colostomy is functioning Small frequent meals recommended No indication for any surgery Advance diet as tolerated Hypertension: Continue amlodipine, metoprolol Hypothyroidism: Continue levothyroxine GERD: Continue Protonix, Pepcid DVT Px: SQ Lovenox Code status: FULL CODE Dispo: awaiting PT/ot GOPI Tee to assist w/ dc plan if needed. Admission and Anticipated Discharge Date Admission Date: April 29, 2022 Subjective Patient seen and examined at bedside as a follow-up of hypotonic hypovolemic hyponatremia, poor appetite, acute metabolic encephalopathy POA, chronic pneumatosis of in this time. Patient was sitting up in chair, on room air, NAD, reports improving appetite and improving strength, reports bowel movement forming up with better output in her ostomy bag, denies fever/chills/headache/sore throat/cough/chest pain/belly pain. Physical Exam Physical Exam: GENERAL: Alert and oriented x3. NAD, on RA. HEENT: No pallor, no icterus. Pupils equal, round and reactive to light. Oral mucosa moist. NECK: No JVD, no neck masses. HEART: S1 and S2 heard. Regular rate and rhythm. No murmur, no gallop. RESPIRATORY SYSTEM: Normal AP diameter. No accessory muscle use. No wheezing, no crackles. ABDOMEN: Soft, bowel sounds present, nontender, no distention. Stoma bag w/ fecal material. CENTRAL NERVOUS SYSTEM: No facial droop. Speech is clear. Obeys simple commands. Moves extremities. EXTREMITIES: No edema, no erythema seen. Results & Data Results & Data ([facility]) Vital Signs (Past 12 Hours) Vital Signs Temp Pulse Pulse Resp BP Pulse Ox O2 Del Method 05/01/22 15:19 36.3 C L 71 16 132/73 95 Room Air 05/01/22 11:30 36.6 C 74 16 148/78 H 93 Room Air 05/01/22 07:36 62 05/01/22 07:29 36.5 C 61 16 143/80 H 96 Room Air
[2022-05-01] MEDS: ONDANSETRON INJ 2 MG/ML 2 ML VIAL IV PRN (20:14)
[2022-05-01] MEDS: METOPROLOL SUCC 50MG EXT REL TAB PO SCH (20:21)
[2022-05-01] MEDS: ENOXAPARIN INJ 40 MG/0.4 ML SYR SQ SCH (20:22)
[2022-05-02] MEDS: ACETAMINOPHEN 325 MG TAB PO PRN (01:31)
[2022-05-02] MEDS: ONDANSETRON INJ 2 MG/ML 2 ML VIAL IV PRN (02:15)
[2022-05-02] MEDS: LEVOTHYROXINE SODIUM 100 MCG TABLET PO SCH (05:54)
[2022-05-02 06:36] LABS: Hematocrit (blood only) 34.1 % (37.0-47.0); Hemoglobin 12.1 g/dl (12.0-16.0); Mean Corpuscular Hemoglobin 30.9 pg (25.0-34.0); Mean Corpuscular Hgb Conc 35.5 g/dL (32.0-36.0); Mean Corpuscular Volume 87.2 fL (80.0-100.0); Mean Platelet Volume 9.7 fL (9.4-12.4); Platelet Count 233 K/uL (130-400); RDW Coefficient of Variation 11.5 % (11.5-14.5); RDW Standard Deviation 36.9 fL (36.4-46.3); Red Blood Count 3.91 M/uL (4.20-5.40); White Blood Count 4.76 K/ul (4.8-10.8)
[2022-05-02 06:51] LABS: BUN Creatinine Ratio 20.8 (10-20); Calcium 8.5 mg/dl (8.5-10.1); Creatinine Clr Calc Pharmacy 64.7 ml/min; Est GFR (African American) 100.3 ml/min; Est GFR (Non-African American) 86.6 ml/min; Magnesium 1.5 mg/dl (1.7-2.4); Phosphorus 3.9 mg/dl (2.5-4.9); Potassium 4.1 mmol/L (3.5-5.1)
[2022-05-02] MEDS: PANTOprazole 40 MG TAB PO SCH (08:04)
[2022-05-02] MEDS: CALCITRIOL 0.25 MCG CAPSULE PO SCH (08:05)
[2022-05-02] MEDS: CEROVITE ADV FORMULA TAB PO SCH (08:05)
[2022-05-02] MEDS: amLODIPine BESYLATE 5 MG TAB PO SCH (08:05)
[2022-05-02] MEDS: MAGNESIUM SULFATE / D5W 1 GM/100 ML BAG IV SCH ×2 (08:05→10:17)
[2022-05-02] MEDS: FAMOTIDINE 40 MG TABLET PO SCH ×2 (08:05→20:05)
[2022-05-02] MEDS ORDERED: UREA (UREA-NA) 15 GM PACK PO SCH (09:00)
--- NOTE | 2022-05-02 14:29 | Electrocardiogram Report ---
Test Reason : Blood Pressure : / mmHG Vent. Rate : 069 BPM Atrial Rate : 069 BPM P-R Int : 176 ms QRS Dur : 134 ms QT Int : 408 ms P-R-T Axes : 008 -20 008 degrees QTc Int : 437 ms Normal sinus rhythm Right bundle branch block with repolarization abnormality Moderate voltage criteria for LVH, may be normal variant Abnormal ECG When compared with ECG of 29-APR-2022 11:24, VT interval has decreased Confirmed by Edi Topete ([id number]) on 05/02/2022 2:28:58 PM Referred By: REFERRED SELF Confirmed By:Edi Topete
--- NOTE | 2022-05-02 15:09 | Hospitalist Progress Note ---
Date of Service May 02, 2022 Assessment & Plan (1) Hyponatremia: (2) Nausea: (3) History of diverticulitis: (4) Colostomy present: (5) HTN (hypertension): (6) Hypothyroidism: Plan 86 yr female with H/O complicated diverticulitis with perforation status postsurgical resection in 2019 with colostomy, hypertension, hyperlipidemia, hypothyroidism, anemia and other medical problems listed below who presents with nausea, dehydration and generalized weakness and was found to have hyponatremia. She is being managed for the following: Hypotonic hypovolemic hyponatremia Poor appetite and increased liquid ostomy output over the past 3 weeks [employer]. Stool PCR negative. Admitting Na of 120 -serum osmolality low at 244, urine osmolality low at 256, urine sodium 44 Sodium levels improved to 129 05/01 and again back to 122 today D/w nephrology, will get Ryan and UOsm, plan to keep her overnight and start Urea BID. c/w FR 1.5L and Low Na diet. Pt w/ good appetite now but had transiently increased stoma output yesterday evening per Pt. Monitor BMP. Pt w/ improving diet and stoma output forming up. Repeat Na 121; 122 in AM, urea was started in AM, reached out to nephro again w/ new Na level, await recs. Will use imodium to try to decrease gi output which might help her w/ maintaining Na level. Repeat Na in PM. Acute metabolic encephalopathy-POA: Likely secondary to hyponatremia. Resolved Pneumatosis of intestine H/O emergent surgical resection with perforated diverticulitis at [facility] in 2019 --CT abd/pelvis with multiple foci of gas both within and surrounding the majority of the small bowel loops that has progressed in the interval but favors a benign pneumatosis --Appreciate surgery input:chronic bowel changes secondary to significant parastomal hernia -- Colostomy is functioning Small frequent meals recommended No indication for any surgery Advance diet as tolerated - pt tolerating diet well. Hypertension: Continue amlodipine, metoprolol Hypothyroidism: Continue levothyroxine GERD: Continue Protonix, Pepcid DVT Px: SQ Lovenox Code status: FULL CODE Dispo: awaiting PT/ot GOPI Tee to assist w/ dc plan if needed. 05/02- went to bedside for updating dtr later in the evening. Approx 30 min was used up listening to her concerns and answering them. Admission and Anticipated Discharge Date Admission Date: April 29, 2022 Subjective Patient seen and examined at bedside as a follow-up of hypotonic hypovolemic hyponatremia, poor appetite, acute metabolic encephalopathy POA, chronic pneumatosis of in this time. Patient was sitting up in chair, on room air, NAD, reports good appetite and improving strength, reports ostomy output getting better; reports having increased output via ostomy bag yesterday later in the evening, denies fever/chills/headache/sore throat/cough/chest pain/belly pain. Physical Exam Physical Exam: GENERAL: Alert and oriented x3. NAD, on RA. HEENT: No pallor, no icterus. Pupils equal, round and reactive to light. Oral mucosa moist. NECK: No JVD, no neck masses. HEART: S1 and S2 heard. Regular rate and rhythm. No murmur, no gallop. RESPIRATORY SYSTEM: Normal AP diameter. No accessory muscle use. No wheezing, no crackles. ABDOMEN: Soft, bowel sounds present, nontender, no distention. Stoma bag w/ fecal material. CENTRAL NERVOUS SYSTEM: No facial droop. Speech is clear. Obeys simple commands. Moves extremities. EXTREMITIES: No edema, no erythema seen. Results & Data Results & Data ([facility]) Vital Signs (Past 12 Hours) Vital Signs Temp Pulse Pulse Resp BP Pulse Ox O2 Del Method 05/02/22 12:23 36.7 C 89 20 132/61 95 Room Air 05/02/22 08:14 36.9 C 69 16 144/69 H 97 Room Air 05/02/22 07:00 74 05/02/22 03:41 36.5 C 58 L 20 138/73 96 Room Air
[2022-05-02 15:46] LABS: BUN Creatinine Ratio 41.3 (10-20); Calcium 9.1 mg/dl (8.5-10.1); Creatinine Clr Calc Pharmacy 54.5 ml/min; Est GFR (African American) 94.8 ml/min; Est GFR (Non-African American) 81.8 ml/min; Potassium 4.2 mmol/L (3.5-5.1)
[2022-05-02] MEDS ORDERED: LOPERAMIDE HCL 2 MG CAP PO STA (16:36)
[2022-05-02] MEDS ORDERED: LOPERAMIDE HCL 2 MG CAP PO PRN (16:38)
--- NOTE | 2022-05-02 18:35 | Nephrology Progress Note ---
Date of Service May 02, 2022 Assessment & Plan (1) Hyponatremia: Plan: Patient initially had what appeared to be hypovolemic hypotonic hyponatremia from increased ostomy output and decreased oral intake presenting sodium 120 on 04/29 at 1300 > improved to 129 yesterday but now dropping to 121. 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 -We will give urea 30 g twice daily. -We will also give sodium and chloride tablets 2 g twice daily -maintain eukalemia -Fluid limit to 1.2 L daily -strict I/O Admission and Anticipated Discharge Date Admission Date: April 29, 2022 Subjective Seen in follow-up for hyponatremia. She feels better. Sodium dropping today. Review of Systems Review of Systems: All other systems were reviewed and negative except as noted in HPI Physical Exam Physical Exam: General exam: Appears comfortable, no acute distress HEENT: Pupils are equal and reactive to light Neck: No JVD, neck is supple trachea is midline Respiratory system: Clear breath sounds bilaterally. Gastrointestinal: Abdomen is soft, non distended, non tender, bowel sounds are present CVS: Regular rate and rhythm. No murmurs, rubs or gallops Musculoskeletal: No joint or muscle tenderness Extremities: Non tender, no edema, peripheral pulses are present Neuro: Oriented, no tremors, no focal neurological deficits Skin: No rashes Results & Data ([facility]) Vital Signs (Past 12 Hours) Vital Signs Temp Pulse Pulse Resp BP BP Pulse Ox 05/02/22 15:39 36.4 C L 69 18 137/81 96 05/02/22 12:23 36.7 C 89 20 132/61 95 05/02/22 08:14 36.9 C 69 16 144/69 H 97 05/02/22 07:00 74 O2 Del Method 05/02/22 15:39 Room Air 05/02/22 12:23 Room Air 05/02/22 08:14 Room Air 05/02/22 07:00 Laboratory Results 05/02/22 15:17 05/02/22 05/02/22 05:44 05:44 WBC 4.76 L RBC 3.91 L MCV 87.2 MCH 30.9 MCHC 35.5 RDW Std Deviation 36.9 RDW Coeff of Grecia 11.5 Plt Count 233 MPV 9.7 Phosphorus 3.9
[2022-05-02] MEDS: SODIUM CHLORIDE 1 GM TABLET PO SCH ×2 (20:02→21:34)
[2022-05-02] MEDS: ENOXAPARIN INJ 40 MG/0.4 ML SYR SQ SCH (20:03)
[2022-05-02] MEDS: UREA (UREA-NA) 15 GM PACK PO SCH (20:03)
[2022-05-02] MEDS: METOPROLOL SUCC 50MG EXT REL TAB PO SCH (20:03)
[2022-05-02 21:27] LABS: BUN Creatinine Ratio 56.9 (10-20); Creatinine Clr Calc Pharmacy 47.7 ml/min; Est GFR (African American) 88.5 ml/min; Est GFR (Non-African American) 76.4 ml/min
[2022-05-03] MEDS: LEVOTHYROXINE SODIUM 100 MCG TABLET PO SCH (06:49)
[2022-05-03 06:58] LABS: Hematocrit (blood only) 35.5 % (37.0-47.0); Hemoglobin 12.6 g/dl (12.0-16.0); Mean Corpuscular Hemoglobin 31.2 pg (25.0-34.0); Mean Corpuscular Hgb Conc 35.5 g/dL (32.0-36.0); Mean Corpuscular Volume 87.9 fL (80.0-100.0); Mean Platelet Volume 9.8 fL (9.4-12.4); Platelet Count 268 K/uL (130-400); RDW Coefficient of Variation 11.6 % (11.5-14.5); RDW Standard Deviation 37.1 fL (36.4-46.3); Red Blood Count 4.04 M/uL (4.20-5.40); White Blood Count 5.28 K/ul (4.8-10.8)
[2022-05-03 07:20] LABS: BUN Creatinine Ratio 76.5 (10-20); Calcium 9.5 mg/dl (8.5-10.1); Creatinine Clr Calc Pharmacy 50.2 ml/min; Est GFR (African American) 92.4 ml/min; Est GFR (Non-African American) 79.8 ml/min; Potassium 4.4 mmol/L (3.5-5.1)
[2022-05-03] MEDS: SODIUM CHLORIDE 1 GM TABLET PO SCH ×2 (08:41→21:36)
[2022-05-03] MEDS: CEROVITE ADV FORMULA TAB PO SCH (08:42)
[2022-05-03] MEDS: PANTOprazole 40 MG TAB PO SCH (08:42)
[2022-05-03] MEDS: FAMOTIDINE 40 MG TABLET PO SCH ×2 (08:42→21:36)
[2022-05-03] MEDS: amLODIPine BESYLATE 5 MG TAB PO SCH (08:42)
[2022-05-03] MEDS: UREA (UREA-NA) 15 GM PACK PO SCH (08:43)
[2022-05-03] MEDS: ONDANSETRON INJ 2 MG/ML 2 ML VIAL IV PRN (10:00)
--- NOTE | 2022-05-03 11:14 | Nephrology Progress Note ---
Date of Service May 03, 2022 Assessment & Plan (1) Hyponatremia: Plan: Patient initially had what appeared to be hypovolemic hypotonic hyponatremia from increased ostomy output and decreased oral intake presenting sodium 120 on 04/29 at 1300 > improved to 128 today. 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 -We will stop urea. Due to vomiting -We will continue to give sodium and chloride tablets 2 g twice daily -maintain eukalemia -Fluid limit to 1.2 L daily -strict I/O Admission and Anticipated Discharge Date Admission Date: April 29, 2022 Subjective Seen for hyponatremia. Main complaint is nausea and vomiting this morning after diarrhea. Sodium was uptrending to 128 this morning. Review of Systems Review of Systems: All other systems were reviewed and negative except as noted in HPI Physical Exam Physical Exam: General exam: Appears comfortable, no acute distress HEENT: Pupils are equal and reactive to light Neck: No JVD, neck is supple trachea is midline Respiratory system: Clear breath sounds bilaterally. Gastrointestinal: Abdomen is soft, non distended, non tender, bowel sounds are present CVS: Regular rate and rhythm. No murmurs, rubs or gallops Musculoskeletal: No joint or muscle tenderness Extremities: Non tender, no edema, peripheral pulses are present Neuro: Oriented, no tremors, no focal neurological deficits Skin: No rashes Results & Data ([facility]) Vital Signs (Past 12 Hours) Vital Signs Temp Pulse Pulse Resp BP BP Pulse Ox 05/03/22 08:00 67 05/03/22 08:00 05/03/22 07:04 36.7 C 64 18 117/73 95 05/03/22 00:00 62 05/03/22 03:00 36.4 C L 65 18 130/75 95 05/02/22 23:51 36.5 C 84 18 119/74 91 O2 Del Method 05/03/22 08:00 05/03/22 08:00 Room Air 05/03/22 07:04 Room Air 05/03/22 00:00 05/03/22 03:00 Room Air 05/02/22 23:51 Room Air Laboratory Results 05/03/22 05:54 05/03/22 05:54 WBC 5.28 RBC 4.04 L MCV 87.9 MCH 31.2 MCHC 35.5 RDW Std Deviation 37.1 RDW Coeff of Grecia 11.6 Plt Count 268 MPV 9.8
--- NOTE | 2022-05-03 15:02 | Hospitalist Progress Note ---
Date of Service May 03, 2022 Assessment & Plan (1) Hyponatremia: (2) Nausea: (3) History of diverticulitis: (4) Colostomy present: (5) HTN (hypertension): (6) Hypothyroidism: Plan 86 yr female with H/O complicated diverticulitis with perforation status postsurgical resection in 2019 with colostomy, hypertension, hyperlipidemia, hypothyroidism, anemia and other medical problems listed below who presents with nausea, dehydration and generalized weakness and was found to have hyponatremia. She is being managed for the following: Hypotonic hypovolemic hyponatremia -ruled out SIADH Poor appetite and increased liquid ostomy output over the past 3 weeks [employer]. 04/29/22 Stool PCR negative. Admitting Na of 120 -serum osmolality low at 244, urine osmolality low at 256, urine sodium 44 Sodium levels improved to 129 05/01 and again back to 122 today, 04/04 urine osmolality and sodium 250 and 27 respectively. Likely SIADH, continue with fluid restriction 1.2 L daily, patient is started on sodium tablet per nephrology, patient did not tolerate urea and hence stopped. Patient was nauseous and sick in his stomach in the morning after urea intake, appetite affected today, will continue to follow. BMP in AM. Encourage p.o. intake/appetite. Patient advised to ask for as needed Imodium for increased stoma output. Metamucil for bulk forming. Nephrology on board, appreciate recommendation. Acute metabolic encephalopathy-POA: Resolved Pneumatosis of intestine H/O emergent surgical resection with perforated diverticulitis at [facility] in 2019 --CT abd/pelvis with multiple foci of gas both within and surrounding the majority of the small bowel loops that has progressed in the interval but favors a benign pneumatosis --Appreciate surgery input:chronic bowel changes secondary to significant parastomal hernia -- Colostomy is functioning Small frequent meals recommended No indication for any surgery Advance diet as tolerated - pt tolerating diet well. Hypertension: Continue amlodipine, metoprolol Hypothyroidism: Continue levothyroxine GERD: Continue Protonix, Pepcid DVT Px: SQ Lovenox Code status: FULL CODE Dispo: awaiting PT/ot Eval, CM to assist w/ dc plan if needed. Patient feels weak and lethargic today. Pending improvement in her stoma output consistency and pending nephro clearance. Admission and Anticipated Discharge Date Admission Date: April 29, 2022 Subjective Patient seen and examined at bedside as a follow-up of hypotonic hypovolemic hyponatremia, poor appetite, acute metabolic encephalopathy POA, chronic pneumatosis of in this time. Patient was sitting up in chair, looking tired, reports nausea and vomiting after taking urea in the morning, has not been able to eat her breakfast today due to nausea and vomiting, appears that she has not been asking for her Imodium for increased stoma output which she has been advised to ask for if with increased stoma output than her usual. Patient reminded about the same again. Patient feels weak/lethargic/sick in stomach. Patient denies headache or fever or sore throat. Patient denies belly pain. Patient still with liquid consistency output via stoma. Physical Exam Physical Exam: GENERAL: Alert and oriented x3. NAD, on RA. HEENT: No pallor, no icterus. Pupils equal, round and reactive to light. Oral mucosa moist. NECK: No JVD, no neck masses. HEART: S1 and S2 heard. Regular rate and rhythm. No murmur, no gallop. RESPIRATORY SYSTEM: Normal AP diameter. No accessory muscle use. No wheezing, no crackles. ABDOMEN: Soft, bowel sounds present, nontender, no distention. Stoma bag w/ fecal material. CENTRAL NERVOUS SYSTEM: No facial droop. Speech is clear. Obeys simple commands. Moves extremities. EXTREMITIES: No edema, no erythema seen. Results & Data Results & Data ([facility]) Vital Signs (Past 12 Hours) Vital Signs Temp Pulse Pulse Resp BP BP Pulse Ox 05/03/22 11:36 36.3 C L 76 18 93/58 L 99 05/03/22 08:00 67 05/03/22 08:00 05/03/22 07:04 36.7 C 64 18 117/73 95 05/03/22 03:00 36.4 C L 65 18 130/75 95 O2 Del Method 05/03/22 11:36 Room Air 05/03/22 08:00 05/03/22 08:00 Room Air 05/03/22 07:04 Room Air 05/03/22 03:00 Room Air
[2022-05-03] MEDS: PSYLLIUM or GUAR GUM FIBER POWDER PACKET PO SCH (15:32)
[2022-05-03] MEDS: ACETAMINOPHEN 325 MG TAB PO PRN (15:41)
[2022-05-03] MEDS: ENOXAPARIN INJ 40 MG/0.4 ML SYR SQ SCH (21:34)
[2022-05-03] MEDS: METOPROLOL SUCC 50MG EXT REL TAB PO SCH (21:36)
[2022-05-04] MEDS: LEVOTHYROXINE SODIUM 100 MCG TABLET PO SCH (05:46)
[2022-05-04 06:59] LABS: Calcium 9.2 mg/dl (8.5-10.1); Creatinine Clr Calc Pharmacy 42.6 ml/min; Est GFR (African American) 77.9 ml/min; Est GFR (Non-African American) 67.2 ml/min; Magnesium 1.9 mg/dl (1.7-2.4); Phosphorus 4.6 mg/dl (2.5-4.9); Potassium 4.3 mmol/L (3.5-5.1)
[2022-05-04 08:35] VITALS: O2SAT 97
[2022-05-04] MEDS: CALCITRIOL 0.25 MCG CAPSULE PO SCH (08:51)
[2022-05-04] MEDS: FAMOTIDINE 40 MG TABLET PO SCH (08:51)
[2022-05-04] MEDS: amLODIPine BESYLATE 5 MG TAB PO SCH (08:51)
[2022-05-04] MEDS: PSYLLIUM or GUAR GUM FIBER POWDER PACKET PO SCH (08:51)
[2022-05-04] MEDS: PANTOprazole 40 MG TAB PO SCH (08:51)
[2022-05-04] MEDS: CEROVITE ADV FORMULA TAB PO SCH (08:51)
[2022-05-04] MEDS: SODIUM CHLORIDE 1 GM TABLET PO SCH (08:52)
--- NOTE | 2022-05-04 10:44 | Nephrology Progress Note ---
Date of Service May 04, 2022 Assessment & Plan (1) Hyponatremia: Plan: Patient initially had what appeared to be hypovolemic hypotonic hyponatremia from increased ostomy output and decreased oral intake presenting sodium 120 on 04/29 at 1300 > improved to 133 today. 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 Patient did not tolerate urea. -She can be discharged on sodium and chloride tablets 2 g twice daily and fluid limit 1.5 L daily -Repeat BMP in a week. Follow-up in 1 to 2 weeks -strict I/O Admission and Anticipated Discharge Date Admission Date: April 29, 2022 Subjective Seen for hyponatremia. She feels better today. No shortness of breath. She is interested in going home Review of Systems Review of Systems: All other systems were reviewed and negative except as noted in HPI Physical Exam Physical Exam: General exam: Appears comfortable, no acute distress HEENT: Pupils are equal and reactive to light Neck: No JVD, neck is supple trachea is midline Respiratory system: Clear breath sounds bilaterally. Gastrointestinal: Abdomen is soft, non distended, non tender, bowel sounds are present CVS: Regular rate and rhythm. No murmurs, rubs or gallops Musculoskeletal: No joint or muscle tenderness Extremities: Non tender, no edema, peripheral pulses are present Neuro: Oriented, no tremors, no focal neurological deficits Skin: No rashes Results & Data ([facility]) Vital Signs (Past 12 Hours) Vital Signs Temp Pulse Pulse Resp BP Pulse Ox O2 Del Method 05/04/22 08:34 36.7 C 77 20 138/63 97 Room Air 05/04/22 03:13 36.8 C 70 20 113/63 93 Room Air 05/04/22 01:35 69 05/03/22 22:59 36.6 C 68 20 119/74 97 Room Air Laboratory Results 05/04/22 05:42 05/04/22 05:42 Phosphorus 4.6
--- NOTE | 2022-05-04 11:59 | Discharge Summary ---
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 Has had decreased oral intake over the past 3 weeks while also having intermittent increased liquid ostomy output. Has also been having intermittent nausea without vomiting. Primary care has been following low sodium labs in outpatient setting for the past 2 weeks and was due for repeat labs today, but daughter was concerned that mom was becoming generally weak and confused and brought to ED instead for further evaluation. Did feel better last evening and eat a meat pie last evening and had a more formed stool following but appetite has generally been poor. Continues to feel nauseated and weak. Denies any recent viral illnesses. No fever, chills, lightheadedness, chest pain, shortness of breath, vomiting, abdominal pain, dysuria or constipation. Has not been antibiotics recently. Did not take morning medications other than levothyroxine. Admission Exam Per Admitting Provider General Appearance:WD/WN, vitals as above, NAD, sitting up in bed, pleasant, conversing easily Head: normocephalic, atraumatic Eyes:normal inspection, PERRL, conjunctivae normal, anicteric sclerae ENT: external ear and nose normal, dry mucous membranes of oropharynx Neck: normal visual inspection, trachea midline, no thyromegaly Respiratory:normal respiratory effort, lungs clear to auscultation, no wheeze, rales, rhonchi. No accessory muscle use Cardiovascular: regular rate, rhythm, no murmur, normal peripheral pulses, no BLE edema. 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 NAD, on RA. HEENT: No pallor, no icterus. Pupils equal, round and reactive to light. Oral mucosa moist. NECK: No JVD, no neck masses. HEART: S1 and S2 heard. Regular rate and rhythm. No murmur, no gallop. RESPIRATORY SYSTEM: Normal AP diameter. No accessory muscle use. No wheezing, no crackles. ABDOMEN: Soft, bowel sounds present, nontender, no distention. Stoma bag w/ f ecal material. CENTRAL NERVOUS SYSTEM: No facial droop. Speech is clear. Obeys simple commands. Moves extremities. EXTREMITIES: No edema, no erythema seen. Discharge Data Allergies Allergy/AdvReac Type Severity Reaction Status Date / Time codeine AdvReac Intermediate NAUSEA, Verified 01/25/22 14:04 VOMITING colchicine AdvReac Intermediate GI side Verified 01/25/22 14:04 effects fentanyl AdvReac Intermediate vomiting Verified 01/25/22 14:04 Consultations 04/29/22 15:18 Consult General Surgery Routine 04/29/22 15:29 ED Decision to Admit Stat 04/29/22 15:32 Consult Nephrology Routine Ordered Studies 04/29/22 12:23 CT abd pelvis IV con only Stat Hospital Course (1) Hyponatremia: (2) Nausea: (3) History of diverticulitis: (4) Colostomy present: (5) HTN (hypertension): (6) Hypothyroidism: Plan 86 yr female with H/O complicated diverticulitis with perforation status postsurgical resection in 2019 with colostomy, hypertension, hyperlipidemia, hypothyroidism, anemia and other medical problems listed below who presents with nausea, dehydration and generalized weakness and was found to have hyponatremia. She was managed for the following: Hypotonic hypovolemic hyponatremia -ruled out SIADH Poor appetite and increased liquid ostomy output over the past 3 weeks [employer]. 04/29/22 Stool PCR negative. Admitting Na of 120 -serum osmolality low at 244, urine osmolality low at 256, urine sodium 44 Sodium levels improved to 129 3/4 and again back to 122 today, 2/5 urine osmolality and sodium 250 and 27 respectively. Likely SIADH, continue with fluid restriction 1.5 L daily, patient is started on sodium tablet per nephrology, patient did not tolerate urea and hence stopped. Pt tolerating diet and stoma output forming up. Pt advised to conitnue use of metamucil bulking agent and imodium as needed. Na 133 today, d/w nephrology, ok to dc on sodium tablets and FR of 1.5L per day w/ f/u w/ nephro in about a week time. Pt feels better and is hemodynamically stable. Pt wants to go home. 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 Hypertension: Continue amlodipine, metoprolol Hypothyroidism: Continue levothyroxine GERD: Continue Protonix, Pepcid Code status: FULL CODE Patient being discharged home with following instruction at the point of discharge: Follow-up with your primary care physician within 1 week time and likely you will need labs CBC/CMP/magnesium/phosphorus. Follow-up with your nephrology within 1 to 2 weeks time upon discharge. Maintain follow up with your GI doctor as prior. Maintain low-sodium diet [less than 2 g/day], increase protein intake, fluid restriction of 1.5 L/day. Use your Imodium to decrease stoma output or over the counter psyllium to help with forming up bulk when the stoma output is loose as needed based on the changes from your usual expected stoma output. Take your medications as prescribed. Please make sure that you are able to get your medications today by calling your pharmacy before you leave the hospital so that your treatment continuity is not broken. Home Health Attestation I certify that this patient is under my care and that I, or a physicians marcos aldrich working with me, had a face to-face encounter that meets the home health [id number] encounter requirements with this patient. The encounter with the patient was in whole, or in part, for the following medical condition, which is the primary reason for home health care (list medical condition): I certify that, based on my findings, the following services are medically necessary home health services: My clinical findings support the need for the above services because: Further, I certify that my clinical findings support that this patient is homebound (i.e. absences from home require considerable and taxing effort and are for medical reasons or confucianism services or infrequently or of short duration when for other reasons) because: Certification for Home Health Services: Based on the above findings, I certify that this patient is confined to the home and needs intermittent jail care, physical therapy and/or speech therapy or continues to need occupational therapy. The patient is under my care, and I have initiated the establishment of the plan of care. This patient will be followed by a physician who will periodically review the plan of care. Total Time Total Time Spent Total Time Spent (In Minutes): 45 Discharge Plan Discharge Items Patient Disposition: Home - Self-Care Reason For Visit: HYPONATREMIA Discharge Diagnosis: Likely SIADH Acute metabolic encephalopathy Pneumatosis of intestine, chronic Acute on chronic increase in stoma output Activity: Resume your previous activity Non-emergency contact: Primary Care Provider Call non-emergency contact if: you have any medication questions, your symptoms worsen and your temperature is above 101 Follow-up/Referrals: Nahid Nicholas [Primary Care Provider] - Diet: Regular and Low Sodium (2gm) Fluids: 1500ml (6 cups) Addtl Attending Provider Instructions: Follow-up with your primary care physician within 1 week time and likely you will need labs CBC/CMP/magnesium/phosphorus. Follow-up with your nephrology within 1 to 2 weeks time upon discharge. Maintain follow up with your GI doctor as prior. Maintain low-sodium diet [less than 2 g/day], increase protein intake, fluid restriction of 1.5 L/day. Use your Imodium to decrease stoma output or over the counter psyllium to help with forming up bulk when the stoma output is loose as needed based on the changes from your usual expected stoma output. Take your medications as prescribed. Please make sure that you are able to get your medications today by calling your pharmacy before you leave the hospital so that your treatment continuity is not broken. Pending Studies at Discharge: No Stand-Alone Forms: My [employer], Smoking Cessation Medications and DC Order Prescriptions: New loperamide 2 mg Capsule 2 mg PO Q4H PRN (Reason: loose stool) Qty: 30 0RF sodium chloride 1,000 mg Tablet,Soluble 2,000 mg PO BID Qty: 120 0RF Psyllium Or Guar Gum Fiber Sup [Metamucil Or Nutrisource Fiber Supplement] 1 pkg PO QAM PRN (Reason: as bulking agent for stool when with loose stool) Qty: 30 0RF Continued nystatin [Nystop] 100,000 unit/gram powder 1 applic TOPICAL TID PRN (Reason: RASH UNDER BREASTS) metoprolol tartrate [Lopressor] 100 mg tablet 100 mg PO HS famotidine [Pepcid] 40 mg tablet 40 mg PO BID levothyroxine 100 mcg tablet 100 mcg PO DAILYBB pantoprazole [Protonix] 40 mg Tablet,Delayed Release (Dr/Ec) 40 mg PO DAILY amlodipine 10 mg tablet 10 mg PO DAILY calcitriol 0.25 mcg capsule 0.25 mcg PO Q OTHER DAY [id number] carb-K1 400 mcg-500 mg calcium-20 mcg Tablet 1 tab PO DAILY acetaminophen 500 mg tablet 1,000 mg PO Q8 PRN (Reason: Pain) ondansetron HCl 4 mg tablet 4 mg PO TID PRN (Reason: Nausea) nitroglycerin 0.4 mg tablet, sublingual 0.4 mg sublingual UD PRN (Reason: Chest Pain) Discharge Orders: Discharge Order (Routine); Ordered 05/04/22 Ordered By: Jason Osman Admission Data Admit Date/Time: 04/29/22 16:33 Attending Provider: Jason Osman Admit Provider: Tsering Haile Primary Care Provider: Nahid Nicholas Other Providers: Tsering Haile ; Haven Herrera ; Janice Kat
[2022-05-04 12:16] VITALS: PULSE 68; TEMP 98.6
[2022-05-04 13:30] VITALS: BP 123/75
== END 2022-05-04 13:55 | disposition home or self-care (01) | DRG 643 ==
LOC: ED 11:03 → 2S 16:33 → SUATTDRO 16:33 → 2S 19:46